=== PATIENT | female | born 1940 | race Hispanic/Latino ===

== ENCOUNTER 2017-08-28 09:33 | Emergency (ER) | payer OTHER ==
--- OUTSIDE RECORDS SUMMARY | 2017-08-28 09:51 | XMS REPORT ---
:1940 Author Organization eClinicalWorks Care Team Providers Name Role Phone Valentín [facility] Provider Role Unavailable Allergies No Known Allergies Problems Problem Type Condition Code Onset Dates Condition Status Problem Peripheral vascular disease I73.9 Active Problem Edema R60.9 Active Problem Insomnia G47.00 Active Problem Obesity E66.9 Active Problem Carotid artery occlusion I65.29 Active Problem Benign essential HTN I10 Active Problem At risk for falling Z91.81 Active Problem Carcinoma of right female breast, C50.911 Active unspecified estrogen receptor status, unspecified site of breast Problem Hyperlipidemia E78.5 Active Problem GERD (gastroesophageal reflux K21.9 Active disease) Problem Osteoporosis M81.0 Active Problem Claudication I73.9 Active Problem Diabetes type 2, uncontrolled E11.65 Active Problem Allergic rhinitis, seasonal J30.2 Active Problem Depression with anxiety F41.8 Active Problem Chronic kidney disease, stage 3 N18.3 Active Problem Chronic atrial fibrillation I48.2 Active Problem Iron deficiency anemia D50.9 Active Problem Breast cancer C50.919 Active Problem Bladder incontinence R32 Active Problem Gout M10.9 Active Problem Anticoagulated Z79.01 Active Problem Back pain M54.9 Active Medications Medication Code Code Instructions Start End Date Status Dosage System Date [facility] 39140428667 200 UNIT/ML Active 70 UNITS FlexTouch Subcutaneous DAILY Increase 2 untis after 3 day if BS are high Results No Known Results Summary Purpose eClinicalWorks Submission
--- OUTSIDE RECORDS SUMMARY | 2017-08-28 09:51 | XMS REPORT ---
:1940 Author Organization eClinicalWorks Care Team Providers Name Role Phone Valentín Noman Provider Role Unavailable Allergies No Known Allergies [...] Active Problem Back pain M54.9 Active Medications No Known Medications Results No Known Results Summary Purpose eClinicalWorks Submission
--- OUTSIDE RECORDS SUMMARY | 2017-08-28 09:51 | XMS REPORT ---
:1940 Author Organization eClinicalWorks Care Team Providers Name Role Phone Laura, [facility] Provider Role Unavailable Allergies, Adverse Reactions, Alerts Substance Reaction Event Type Levaquin Info Not Available Drug Allergy Problems Problem Type Condition Code Onset Dates [...] incontinence R32 Active Problem Gout M10.9 Active Assessment Medicare annual wellness visit, Z00.00 Active initial Problem Anticoagulated Z79.01 Active Problem Back pain M54.9 Active Medications Medication Code Code Instructions Start End Status Dosage System Date Date Citalopram [facility] 45265914051 20 MG Orally Active 1 tablet Hydrobromide Once a day Coumadin ND 60778990214 2 MG Orally Active 1 tablet Once a day Lipitor ND 85595659127 40 MG Active 1 TAB(S) ONCE A DAY ORALLY Meclizine HCl ND 88983070929 25 MG Orally Active 1 tablet Three times a day Ferrous Sulfate ND 91664525185 325 (65 Fe) MG May Active 1 tablet Orally Once a 2017 day Tresiba FlexTouch ND 91887137181 200 UNIT/ML Active not Subcutaneous defined Chlorthalidone ND 54002538031 25 MG Orally Active 1 tablet Once a day in the morning with food FreeStyle Lite [facility] NAMED [facility] 37643027065 0 Active CHECK Test BLOOD SUGAR TWICE DAILY Flonase Allergy [facility] NAMED [facility] 89269277001 50 MCG/ACT Active 1 spray in Relief Nasally Once a each day nostril Meclizine HCl [facility] NAMED [facility] 50440381853 25 Active CHEW AND SWALLOW 1 TABLET THREE TIMES DAILY Anastrozole [facility] NAMED [facility] 48190387130 1 MG Orally Active 1 tablet Once a day Protonix [facility] NAM[facility] 96826512294 40 MG Active 1 TAB(S) ONCE A DAY ORALLY Losartan [facility] NAM[facility] 57668228558 100 MG Orally Active 1 tablet Potassium Once a day Topamax [facility] NAM[facility] 28333540307 50 MG Orally Active 1 tablet Once a day Protonix [facility] NAM[facility] 08166018669 40 MG Orally Active 1 tablet Once a day Tresiba FlexTouch [facility]AM[facility] 45625492522 200 UNIT/ML Active 40 UNITS DAILY Results No Known Results Summary Purpose eClinicalWorks Submission
--- NOTE | 2017-08-28 10:09 | ER ---
Nurse's Notes [facility] Name: Sarah Garcia Age: 76 yrs Sex: Female : 1940 Arrival Date: 08/28/2017 Time: 09:36 Bed Waiting Private MD: Noman Laura Diagnosis: Presentation: 08/28 09:45 Presenting complaint: Patient states: Sent to ER by home health because nurse heard aj crackles in lungs. Patient denies cough or fever. Transition of care: patient was not received from another setting of care. Onset of symptoms was August 28, 2017. Risk Assessment: Do you want to hurt yourself or someone else? Patient reports no desire to harm self or others. Initial Sepsis Screen: Does the patient meet any 2 criteria? No. Patient's initial sepsis screen is negative. Does the patient have a suspected source of infection? No. Patient's initial sepsis screen is negative. Care prior to arrival: None. 09:45 Method Of Arrival: Wheelchair aj 09:45 Acuity: CHRISS 4 aj Triage Assessment: 09:49 General: Appears in no apparent distress. comfortable, Behavior is calm, cooperative, aj appropriate for age. Pain: Denies pain. Neuro: Level of Consciousness is awake, alert, obeys commands, Oriented to person, place, time, situation, Appropriate for age. Respiratory: Airway is patent Respiratory effort is even, unlabored, Respiratory pattern is regular, symmetrical. Derm: Skin is intact, is healthy with good turgor, Skin is pink, warm \T\ dry. normal. Historical: - Allergies: 09:49 QUINOLONES; aj - Home Meds: 09:49 aspirin 81 mg Oral chew 1 tab once daily [Active]; chlorthalidone 25 mg Oral tab 1 tab aj once daily [Active]; citalopram 20 mg tab 1 tab once daily [Active]; Coumadin 2 mg Oral tab 1 tab Sunday, Sunday, Sunday, , Sunday and then 1/2 tablet on Sunday and Sunday [Active]; ferrous sulfate 325 mg (65 mg iron) Oral TbEC twice a day [Active]; Lopressor 50 mg Oral tab once daily [Active]; gabapentin 300 mg Oral cap 1 cap 3 times per day [Active]; losartan 100 mg Oral tab 1 tab once daily [Active]; meclizine 25 mg Oral tab 1 tab 3 times per day [Active]; Novolin N Sub-Q [Active]; Protonix 40 mg Oral TbEC 1 tab once daily [Active]; simvastatin 40 mg Oral tab once daily [Active]; tramadol 50 mg Oral tab as needed [Active]; Tresiba FlexTouch U-200 200 unit/mL (3 mL) subcutaneous inpn 40 unit nightly [Active]; - PMHx: 09:49 Atrial Fib; Diabetes - IDDM; GERD; High Cholesterol; Hypertension; Myocardial aj infarction; - Immunization history:: Adult Immunizations up to date. - Social history:: Smoking status: Patient/guardian denies using tobacco. - Ebola Screening: : Patient negative for fever greater than or equal to 101.5 degrees Fahrenheit, and additional compatible Ebola Virus Disease symptoms Patient denies exposure to infectious person Patient denies travel to an Ebola-affected area in the 21 days before illness onset No symptoms or risks identified at this time. Assessment: 10:08 Reassessment: Patient's son stated that he would take her to urgent care. aj Vital Signs: 09:49 BP 133 / 47; Pulse 69; Resp 18; Temp 97.8; Pulse Ox 99% on R/A; Weight 83.01 kg; Height aj 5 ft. 2 in. (157.48 cm); 09:49 Body Mass Index 33.47 (83.01 kg, 157.48 cm) aj ED Course: 09:36 Patient arrived in ED. sb2 09:37 Noman Laura DO is Private Physician. sb2 09:48 Triage completed. aj 09:49 Arm band placed on left wrist. Patient placed in waiting room, Patient notified of wait aj time. 10:03 Cristóbal Waldron MD is Attending Physician. susie Administered Medications: No medications were administered Outcome: 10:09 Eloped from waiting room, before seeing physician Time discovered patient gone: August at 10:09 10:09 Patient left the ED. aj Signatures: Rita Pittman, RN RN Cristóbal Lau MD MD cha Billeau, Sheri sb2
[2017-08-28 10:13] VITALS: BP 133/47; TEMP 97.8; O2SAT 99
== END 2017-08-28 10:09 | disposition left against medical advice (07) ==
LOC: ER 09:33
DX: Z53.21 Procedure and treatment not carried out due to patient leaving prior to being seen by health care provider (principal)
CPT/HCPCS: 99281

== ENCOUNTER 2017-09-24 12:38 | Observation (INO) | payer OTHER ==
--- OUTSIDE RECORDS SUMMARY | 2017-09-24 12:40 | XMS REPORT ---
:1940 Author Organization eClinicalWorks Care Team Providers Name Role Phone Valentín Count Includes [facility] Provider Role Unavailable Allergies No Known Allergies [...] Start End Date Status Dosage System Date [facility] 45099479255 200 UNIT/ML Active 70 UNITS FlexTouch Subcutaneous DAILY Increase 2 untis after 3 day if BS are high Results No Known Results Summary Purpose eClinicalWorks Submission
--- OUTSIDE RECORDS SUMMARY | 2017-09-24 12:40 | XMS REPORT ---
:1940 Author Organization eClinicalWorks Care Team Providers Name Role Phone Noman Laura Provider Role Unavailable Allergies No Known Allergies [...]
--- OUTSIDE RECORDS SUMMARY | 2017-09-24 12:40 | XMS REPORT ---
:1940 Author Organization eClinicalWorks Care Team Providers Name Role Phone Laura, [facility] Provider Role Unavailable Allergies, Adverse Reactions, Alerts [...] End Status Dosage System Date Date Citalopram [facility] 61215994439 20 MG Orally Active 1 tablet Hydrobromide Once a day Coumadin ND 82775117582 2 MG Orally Active 1 tablet Once a day Lipitor ND 70512263235 40 MG Active 1 TAB(S) ONCE A DAY ORALLY Meclizine HCl ND 47196062080 25 MG Orally Active 1 tablet Three times a day Ferrous Sulfate ND 56103374392 325 (65 Fe) MG May Active 1 tablet Orally Once a 2017 day Tresiba FlexTouch ND 45377730400 200 UNIT/ML Active not Subcutaneous defined Chlorthalidone ND 61802749442 25 MG Orally Active 1 tablet Once a day in the morning with food FreeStyle Lite [facility] 98164879808 0 Active CHECK Test BLOOD SUGAR TWICE DAILY Flonase Allergy [facility] 58068852468 50 MCG/ACT Active 1 spray in Relief Nasally Once a each day nostril Meclizine HCl [facility] 88918410222 25 Active CHEW AND SWALLOW 1 TABLET THREE TIMES DAILY Anastrozole [facility] 84635307817 1 MG Orally Active 1 tablet Once a day Protonix [facility] 77483248988 40 MG Active 1 TAB(S) ONCE A DAY ORALLY Losartan [facility] 96629768794 100 MG Orally Active 1 tablet Potassium Once a day Topamax [facility] 36600857332 50 MG Orally Active 1 tablet Once a day Protonix [facility] 67069670072 40 MG Orally Active 1 tablet Once a day Tresiba FlexTouch [facility] 97381569831 200 UNIT/ML Active 40 UNITS DAILY Results No Known Results Summary Purpose eClinicalWorks Submission
--- OUTSIDE RECORDS SUMMARY | 2017-09-24 12:40 | XMS REPORT ---
:1940 Author Organization eClinicalWorks Care Team Providers Name Role Phone Noman Luara Provider Role Unavailable Allergies No Known Allergies Problems Problem Type Condition Code Onset Dates Condition Status Assessment Chronic kidney disease, stage 3 N18.3 Active Assessment Depression with anxiety F41.8 Active Assessment Anticoagulated Z79.01 Active Assessment Carotid artery occlusion I65.29 Active Assessment Chronic atrial fibrillation I48.2 Active Assessment GERD (gastroesophageal reflux K21.9 Active disease) Assessment Carcinoma of right female breast, C50.911 Active unspecified estrogen receptor status, unspecified site of breast Assessment Hyperlipidemia E78.5 Active Assessment Benign essential HTN I10 Active Problem Gout M10.9 Active Assessment Diabetes type 2, uncontrolled E11.65 Active Problem Back pain M54.9 Active Problem Peripheral vascular disease I73.9 Active Problem Edema R60.9 Active Problem Insomnia G47.00 Active Problem Obesity E66.9 Active Problem Benign essential HTN I10 Active Problem Carotid artery occlusion I65.29 Active Problem At risk for falling Z91.81 Active Problem Hyperlipidemia E78.5 Active Problem Carcinoma of right female breast, C50.911 Active unspecified estrogen receptor status, unspecified site of breast Problem GERD (gastroesophageal reflux K21.9 Active disease) Problem Osteoporosis M81.0 Active Problem Claudication I73.9 Active Problem Diabetes type 2, uncontrolled E11.65 Active Assessment At risk for falling Z91.81 Active Problem Allergic rhinitis, seasonal J30.2 Active Assessment Osteoporosis M81.0 Active Problem Depression with anxiety F41.8 Active Assessment Peripheral vascular disease I73.9 Active Problem Chronic kidney disease, stage 3 N18.3 Active Assessment Leg weakness, bilateral R29.898 Active Problem Chronic atrial fibrillation I48.2 Active Problem Iron deficiency anemia D50.9 Active Problem Breast cancer C50.919 Active Problem Bladder incontinence R32 Active Problem Anticoagulated Z79.01 Active Medications Medication Code Code Instructions Start End Status Dosage System Date Date FreeStyle Lite [facility] 49109579049 0 Active CHECK Test BLOOD SUGAR TWICE DAILY Lipitor [facility] 88848293283 40 MG Active 1 TAB(S) ONCE A DAY ORALLY Losartan [facility] 70587998037 100 MG Orally Active 1 tablet Potassium Once a day Meclizine HCl [facility] 87095256363 25 Active CHEW AND SWALLOW 1 TABLET THREE TIMES DAILY Flonase Allergy [facility] 06423077763 50 MCG/ACT Active 1 spray in Relief Nasally Once a each day nostril Ferrous Sulfate [facility] 76866506473 325 (65 Fe) MG Active 1 tablet Orally Once a day Tresiba FlexTouch [facility] 46045328450 200 UNIT/ML Active 70 UNITS Subcutaneous DAILY Increase 2 untis after 3 day if BS are high Citalopram [facility] 34977761671 20 MG Orally Active 1 tablet Hydrobromide Once a day Chlorthalidone [facility] 23435406138 25 MG Orally Active 1 tablet Once a day in the morning with food Tresiba FlexTouch [facility] 97921798082 200 UNIT/ML Active not Subcutaneous defined Anastrozole [facility] 32635474729 1 MG Orally Active 1 tablet Once a day Topamax [facility] 53084474094 50 MG Orally Active 1 tablet Once a day Protonix [facility] 46028053318 40 MG Active 1 TAB(S) ONCE A DAY ORALLY Lipitor [facility] 69257971183 40 MG Orally Active 1 tablet Once a day Coumadin [facility] 81149882437 2 MG Orally Active 1 tablet Once a day BD Pen Needle [facility] 72047766606 0 Active USE DAILY Short U/F Citalopram [facility] 26876862497 20 Active TAKE 1 Hydrobromide TABLET BY MOUTH EVERY DAY Protonix [facility] 21563605545 40 MG Orally Active 1 tablet Once a day Results No Known Results Summary Purpose eClinicalWorks Submission
[2017-09-24 14:24] LABS: Absolute Lymphocytes (CBC) 1.9 K/uL (0.7-4.9); Absolute Monocytes 0.5 K/uL (0.1-1.3); Absolute Neutrophil 5.4 K/uL (1.8-8.0); Basophils % 0.4 % (0-1.3); Hematocrit 30.9 % (36.0-45.0); Lymphocytes % 23.2 % (15.3-44.8); MCH 30.5 pg (27.0-35.0); MCV 95.1 fL (80-100); MPV 9.5 fL (7.6-11.3); Monocytes % 6.2 % (3.3-12.3); RBC Red Blood Cell Count 3.25 M/uL (3.86-4.86)
[2017-09-24 14:46] LABS: Urine Bacteria LOADED /HPF (<20); Urine Culture Reflex Order REFLEXED; Urine Mucus 2+ /HPF (NONE SEEN)
[2017-09-24 14:46] LABS: Urine Blood 1+ (NEG); Urine Glucose 2+ (NEG); Urine Protein 1+ (NEG); Urine pH 5.5 (5.0-7.0)
[2017-09-24] MEDS ORDERED: NA CHLORIDE 0.9% 500 ML ONE (15:01)
[2017-09-24] MEDS ORDERED: INSULIN -REGULAR HUMAN 50 UNIT/0.5 ML ML ONE ×2 (15:01→20:50)
[2017-09-24 15:23] LABS: Protime INR 2.38
[2017-09-24] MEDS ORDERED: CEFTRIAXONE/SWI 1gm 1 GM/10 ML SYR ONE (15:31)
--- NOTE | 2017-09-24 17:01 | EKG ---
Test Date: 2017-09-24 Test Time: 13:28:16 Television Journalist: JOSUE MEASUREMENT RESULTS: Intervals: Rate: 75 [place]: 172 QRSD: 70 QT: 388 QTc: 433 [place]: P: 28 [place]: 172 QRS: 3 T: 51 INTERPRETIVE STATEMENTS: Normal sinus rhythm Minimal voltage criteria for LVH, may be normal variant Inferior infarct, age undetermined Cannot rule out Anterior infarct, age undetermined Abnormal ECG Compared to ECG 04/15/2016 06:53:40 Left ventricular hypertrophy now present Myocardial infarct finding still present Electronically Signed On 09-24-17 17:00:39 CDT by Jefe Ewing
--- NOTE | 2017-09-24 17:26 | ER ---
Nurse's Notes [facility] Name: Sarah Garcia Age: 76 yrs Sex: Female : 1940 Arrival Date: 09/24/2017 Time: 12:41 Bed 15 Private MD: Noman Laura Diagnosis: Unspecified kidney failure;Type 1 diabetes mellitus;Hyperkalemia;Cystitis Presentation: 09/24 12:53 Presenting complaint: Patient states: BLOOD SURGAR YESTERDAY WAS 240, TODAY IT WAS 490 ch AT HOME. Transition of care: patient was not received from another setting of care. Onset of symptoms was September 24, 2017 at 08:00. Risk Assessment: Do you want to hurt yourself or someone else? Patient reports no desire to harm self or others. Initial Sepsis Screen: Does the patient meet any 2 criteria? No. Patient's initial sepsis screen is negative. Does the patient have a suspected source of infection? No. Patient's initial sepsis screen is negative. Care prior to arrival: None. 12:53 Method Of Arrival: Wheelchair 12:53 Acuity: CHRISS 4 ch 13:30 Acuity: CHRISS 3 hb Triage Assessment: 12:57 General: Appears in no apparent distress. comfortable, Behavior is calm, cooperative, ch appropriate for age. Pain: Denies pain. Historical: - Allergies: 12:57 QUINOLONES; ch - Home Meds: 12:57 anastrozole 1 mg oral tab 1 tab once daily [Active]; aspirin 81 mg Oral chew 1 tab once ch daily [Active]; atorvastatin 40 mg oral tab 1 tab once daily [Active]; Lyrica Oral 1 cap [Active]; chlorthalidone 25 mg Oral tab 1 tab once daily [Active]; citalopram 20 mg tab 1 tab once daily [Active]; Coumadin 2.5 mg Oral tab 1 tab once daily [Active]; ferrous sulfate 325 mg (65 mg iron) Oral tab [Active]; losartan 100 mg oral tab 1 tab once daily [Active]; meclizine 25 mg Oral chew 1 tab once daily [Active]; miconazole nitrate 1,200-2 mg-% Vaginal kit 2 times per day [Active]; pantoprazole 40 mg oral TbEC 1 tab once daily [Active]; Childs 5-325 mg Oral tab 1 tab NEEDED for Pain [Active]; tramadol 50 mg Oral tab 1 tab daily [Active]; TRESIBA FLEXTOUCH U-100, 40 UINTIS [Active]; Vitamin D Oral [Active]; BREAST CANCER PILL AND RADIATION [Active]; - PMHx: 12:57 Atrial Fib; Diabetes - IDDM; GERD; High Cholesterol; Hypertension; Myocardial ch infarction; - Immunization history:: Adult Immunizations up to date. - Social history:: Smoking status: Patient/guardian denies using tobacco, Patient/guardian denies using alcohol, street drugs. - Ebola Screening: : Patient negative for fever greater than or equal to 101.5 degrees Fahrenheit, and additional compatible Ebola Virus Disease symptoms Patient denies exposure to infectious person Patient denies travel to an Ebola-affected area in the 21 days before illness onset No symptoms or risks identified at this time. Screenin:45 Abuse screen: Denies threats or abuse. Denies injuries from another. Nutritional hb screening: No deficits noted. Tuberculosis screening: No symptoms or risk factors identified. Fall Risk Total Lutz Fall Scale indicates Low Risk Score (25-44 pts). Fall prevention measures have been instituted. Side Rails Up X 2 Frequent Obs/Assesments occuring Family Present and informed to notify staff if they need to leave bedside As available Patient and Family Educated on Fall Prevention Program and strategies. Assessment: 13:30 General: Appears in no apparent distress. Behavior is calm, cooperative. Pain: Denies hb pain. Neuro: Level of Consciousness is awake, alert, obeys commands, Oriented to person, place, time, situation. Cardiovascular: Capillary refill < 3 seconds Patient's skin is warm and dry. Respiratory: Airway is patent Trachea midline Respiratory effort is even, unlabored, Respiratory pattern is regular, symmetrical, Breath sounds are clear bilaterally. GI: No signs and/or symptoms were reported involving the gastrointestinal system. : No signs and/or symptoms were reported regarding the genitourinary system. EENT: No signs and/or symptoms were reported regarding the EENT system. Derm: No signs and/or symptoms reported regarding the dermatologic system. Skin is intact, is healthy with good turgor, Skin is pink, warm \T\ dry. Musculoskeletal: No signs and/or symptoms reported regarding the musculoskeletal system. 14:00 Reassessment: patient's daughter named Ekaterina left her mobile number [phone] to cc3 update her with anything with regards to her mother for she will leave for a while now and will be back later.. 14:30 Reassessment: Patient appears in no apparent distress at this time. No changes from previously documented assessment. Patient and/or family updated on plan of care and expected duration. Pain level reassessed. Patient is alert, oriented x 3, equal unlabored respirations, skin warm/dry/pink. 15:30 Reassessment: Patient appears in no apparent distress at this time. No changes from previously documented assessment. Patient and/or family updated on plan of care and expected duration. Pain level reassessed. Patient is alert, oriented x 3, equal unlabored respirations, skin warm/dry/pink. 16:00 Reassessment: Patient appears in no apparent distress at this time. Patient and/or hb family updated on plan of care and expected duration. Pain level reassessed. Patient is alert, oriented x 3, equal unlabored respirations, skin warm/dry/pink. 17:48 Reassessment: Patient appears in no apparent distress at this time. Called the patient's daughter named Ekaterina and informed her that the patient is ordered for discharge home and she said she will come to fetch the patient. 18:14 Reassessment: Dr. Hung notified of critical lab value potassium 6.1. Repeat BMP ss ordered. 18:33 Reassessment: Repeat BMP sent. NAD. VSS. Son at bedside. 19:17 Reassessment: Patient appears in no apparent distress at this time. Patient and/or aa1 family updated on plan of care and expected duration. Pain level reassessed. Patient is alert, oriented x 3, equal unlabored respirations, skin warm/dry/pink. Awaiting repeat lab results. 19:30 Reassessment: Nettie in outside lab called stating that repeat chemistry sent at 1820 aa1 was hemolyzed and new specimen needs to be collected. Will redraw sample at this time. 20:30 Reassessment: Patient appears in no apparent distress at this time. Patient and/or aa1 family updated on plan of care and expected duration. Pain level reassessed. Patient is alert, oriented x 3, equal unlabored respirations, skin warm/dry/pink. Repeat chemistry resulted at this time. Awaiting provider review. 21:13 Reassessment: Patient appears in no apparent distress at this time. Patient and/or aa1 family updated on plan of care and expected duration. Pain level reassessed. Patient is alert, oriented x 3, equal unlabored respirations, skin warm/dry/pink. Awaiting assessment from Dr. Waldron for re-evaluation. 22:00 Reassessment: Patient appears in no apparent distress at this time. Patient and/or aa1 family updated on plan of care and expected duration. Pain level reassessed. Patient is alert, oriented x 3, equal unlabored respirations, skin warm/dry/pink. Pt vomited, notified and order for Zofran received. 22:36 Reassessment: Patient appears in no apparent distress at this time. Patient and/or aa1 family updated on plan of care and expected duration. Pain level reassessed. Patient is alert, oriented x 3, equal unlabored respirations, skin warm/dry/pink. Pt resting comfortably. Bed assignment received; awaiting admission orders from Dr. Fowler. 23:10 Reassessment: Patient appears in no apparent distress at this time. Patient and/or aa1 family updated on plan of care and expected duration. Pain level reassessed. Patient is alert, oriented x 3, equal unlabored respirations, skin warm/dry/pink. Pt had large bowel movement. Cleaned of incontinence and brief changed. 23:12 Reassessment: Dr. Fowler at bedside for pt assessment for admission. aa1 23:46 Reassessment: Patient appears in no apparent distress at this time. Patient is alert, aa1 oriented x 3, equal unlabored respirations, skin warm/dry/pink. Report given to analisa on 4th floor. Vital Signs: 12:57 BP 155 / 90; Pulse 70; Resp 18; Temp 99; Pulse Ox 93% on R/A; Weight 84.37 kg; Height 5 ch ft. 3 in. (160.02 cm); Pain 0/10; 13:57 BP 152 / 41; Pulse 71; Resp 18; Pulse Ox 96% on R/A; dh3 14:57 BP 162 / 49; Pulse 70; Resp 17; Pulse Ox 96% on R/A; dh3 15:27 BP 144 / 49; Pulse 78; Resp 16; Pulse Ox 99% on R/A; dh3 19:00 BP 191 / 71; Pulse 70; Resp 18; Pulse Ox 97% on R/A; Pain 0/10; aa1 20:00 BP 198 / 66; Pulse 70; Resp 16; Pulse Ox 95% on R/A; Pain 0/10; aa1 21:13 BP 185 / 68; Pulse 70; Resp 18; Pulse Ox 100% ; Pain 0/10; aa1 22:00 BP 125 / 85; Pulse 66; Resp 18; Pulse Ox 97% on R/A; Pain 0/10; aa1 22:24 BP 102 / 60; Pulse 76; Resp 18; Pulse Ox 97% on R/A; Pain 0/10; aa1 23:10 BP 111 / 40; Pulse 72; Resp 18; Pulse Ox 95% on R/A; Pain 0/10; aa1 23:36 BP 130 / 63; Pulse 72; Resp 16; Temp 98.6; Pulse Ox 96% on R/A; Pain 0/10; aa1 12:57 Body Mass Index 32.95 (84.37 kg, 160.02 cm) ED Course: 12:41 Patient arrived in ED. sb2 12:41 Noman Laura DO is Private Physician. sb2 12:54 Triage completed. ch 12:57 Arm band placed on left wrist. Patient placed in waiting room. ch 13:00 Cristóbal Omalley PA is PHCP. cp 13:00 Pankaj Hung MD is Attending Physician. cp 13:15 Patient has correct armband on for positive identification. Bed in low position. Call hb light in reach. Side rails up X 1. 13:53 EKG done, by mechanical technician. reviewed by Cristóbal ELIZABETH. at1 13:58 Martha Villanueva RN is Primary Nurse. hb 13:58 Inserted saline lock: 22 gauge in left forearm, using aseptic technique. Blood dh3 collected. 13:58 Initial lab(s) drawn, by ky, sent to lab. dh3 17:52 No provider procedures requiring assistance completed. IV discontinued, intact, hb bleeding controlled, No redness/swelling at site. Pressure dressing applied. 18:21 Primary Nurse role handed off by Martha Villanueva RN 19:03 Attending Physician role handed off by Pankaj Hung MD [facility] 19:03 Cristóbal Waldron MD is Attending Physician. susie 19:14 Marsha Rodriguez RN is Primary Nurse. aa1 19:33 CT Stone Protocol In Process Unspecified. EDMS 20:32 Oziel Jauregui MD is Referral Physician. susie 21:00 Inserted saline lock: 24 gauge in left forearm, using aseptic technique. aa1 21:47 Mejia Cameron MD is Hospitalizing Provider. susie 22:22 Cleaned of incontinence. aa1 23:10 Cleaned of incontinence. aa1 23:14 X-ray completed. Portable x-ray completed in exam room. Patient tolerated procedure kw well. Administered Medications: Discontinued: NS 0.9% 1000 ml IV at 100 ml/hr continuous 14:44 Drug: NS 0.9% 250 ml Route: IV; Rate: bolus; Site: left wrist; hb 15:30 Follow up: IV Status: Completed infusion hb 15:00 Drug: Insulin Regular Human 10 units {Co-Signature: sg (Tutu Dozier RN).} Route: IVP; hb Site: left wrist; 15:35 Follow up: Response: No adverse reaction; Blood sugar is lowered hb 15:30 Drug: Rocephin 1 grams Route: IV; Rate: calculated rate; Site: left wrist; hb 17:12 Follow up: Response: No adverse reaction hb 15:46 Drug: NS 0.9% 1000 ml Route: IV; Rate: 100 ml/hr; Site: left wrist; hb 20:55 Drug: Kayexalate 30 grams Route: PO; aa1 21:49 Follow up: Response: No adverse reaction aa1 20:55 Drug: Albuterol 5 mg Route: Inhalation; aa1 21:05 Drug: Insulin Regular Human 10 units {Co-Signature: ak1 (Taya Chopra RN).} Route: IVP; aa1 Site: left forearm; 22:05 Follow up: Response: No adverse reaction; Blood sugar is lowered aa1 22:00 Drug: NS 0.9% 1000 ml Route: IV; Rate: 75 ml/hr; Site: left forearm; aa1 23:40 Follow up: IV Status: Infusion continued upon admission aa1 22:00 Drug: Zofran 4 mg Route: IVP; Site: left forearm; aa1 23:00 Follow up: Response: No adverse reaction; Nausea is decreased aa1 Point of Care Testing: Blood Glucose: 12:59 Blood Glucose: 419 mg/dL; ch 22:06 Blood Glucose: 280 mg/dL; aa1 Ranges: Outcome: 17:26 Discharge ordered by . cp 17:52 Discharged to home via wheelchair. hb 17:52 Condition: stable 17:52 Discharge instructions given to patient, Instructed on discharge instructions, follow up and referral plans. medication usage, Demonstrated understanding of instructions, follow-up care, medications, Prescriptions given X 1. 17:53 Patient left the ED. hb 21:49 Decision to Hospitalize by Provider. susie 23:51 Patient left the ED. aa1 Signatures: Dispatcher [employer] EDMS Mabel Hurtado, RN RN Tutu Dozier, RN RN sg Marsha Rodriguez RN RN aa1 Cristóbal Waldron MD MD cha Smirch, Shelby, RN RN Nata Hernandez Amanda, unisaw operator EKG Tat1 Cristóbal Omalley PA PA cp Martha Villanueva, RN RN Martha Childress 3 Minoo Barajas 2 Brisa Jaramillo 3 Tutu Dozier RN Taya Chopra RN ak1
--- NOTE | 2017-09-24 17:26 | EDPHYS ---
Physician Documentation [facility] Name: Sarah Garcia Age: 76 yrs Sex: Female : 1940 Arrival Date: 09/24/2017 Time: 12:41 Bed 15 Private MD: [facility] ED Physician Cristóbal Waldron HPI: 09/24 13:05 This 76 yrs old Female presents to ER via Wheelchair with complaints of High cp Blood Sugar. 13:05 The patient or guardian reports hyperglycemia. Onset: The symptoms/episode cp began/occurred yesterday. 13:05 Associated signs and symptoms: Pertinent negatives: chest pain, abdominal pain. cp 13:05 Current symptoms: In the emergency department the patient's symptoms are unchanged from cp the initial presentation. Historical: - Allergies: 12:57 QUINOLONES; ch - Home Meds: 12:57 anastrozole 1 mg oral tab 1 tab once daily [Active]; aspirin 81 mg Oral chew 1 tab once ch daily [Active]; atorvastatin 40 mg oral tab 1 tab once daily [Active]; Lyrica Oral 1 cap [Active]; chlorthalidone 25 mg Oral tab 1 tab once daily [Active]; citalopram 20 mg tab 1 tab once daily [Active]; Coumadin 2.5 mg Oral tab 1 tab once daily [Active]; ferrous sulfate 325 mg (65 mg iron) Oral tab [Active]; losartan 100 mg oral tab 1 tab once daily [Active]; meclizine 25 mg Oral chew 1 tab once daily [Active]; miconazole nitrate 1,200-2 mg-% Vaginal kit 2 times per day [Active]; pantoprazole 40 mg oral TbEC 1 tab once daily [Active]; [place] 5-325 mg Oral tab 1 tab NEEDED for Pain [Active]; tramadol 50 mg Oral tab 1 tab daily [Active]; TRESIBA FLEXTOUCH U-100, 40 UINTIS [Active]; Vitamin D Oral [Active]; BREAST CANCER PILL AND RADIATION [Active]; - PMHx: 12:57 Atrial Fib; Diabetes - IDDM; GERD; High Cholesterol; Hypertension; Myocardial ch infarction; - Immunization history:: Adult Immunizations up to date. - Social history:: Smoking status: Patient/guardian denies using tobacco, Patient/guardian denies using alcohol, street drugs. - Ebola Screening: : Patient negative for fever greater than or equal to 101.5 degrees Fahrenheit, and additional compatible Ebola Virus Disease symptoms Patient denies exposure to infectious person Patient denies travel to an Ebola-affected area in the 21 days before illness onset No symptoms or risks identified at this time. ROS: 13:10 Constitutional: Negative for body aches, chills, fever, poor PO intake. cp 13:10 Eyes: Negative for injury, pain, redness, and discharge. cp 13:10 Cardiovascular: Negative for chest pain, edema, palpitations. 13:10 Respiratory: Negative for cough, shortness of breath, wheezing. 13:10 Abdomen/GI: Negative for abdominal pain, nausea, vomiting, and diarrhea, constipation. 13:10 Skin: Negative for cellulitis, rash. 13:10 Neuro: Negative for altered mental status, headache, speech changes, syncope, near syncope, weakness. 13:10 All other systems are negative. Exam: 13:15 Constitutional: The patient appears in no acute distress, alert, awake, cp non-diaphoretic, non-toxic, well developed, well nourished, obese. 13:15 Head/Face: Normocephalic, atraumatic. cp 13:15 Eyes: Periorbital structures: appear normal, Conjunctiva: normal, no exudate, no injection, Sclera: no appreciated abnormality, Lids and lashes: appear normal, bilaterally. 13:15 ENT: External ear(s): are unremarkable, Nose: is normal, Mouth: Lips: moist, Oral mucosa: moist, Posterior pharynx: is normal, airway is patent, no erythema, no exudate. 13:15 Chest/axilla: Inspection: normal, Palpation: is normal, no crepitus, no tenderness. 13:15 Cardiovascular: Rate: normal, Rhythm: regular, Edema: is not appreciated, JVD: is not appreciated. 13:15 Respiratory: the patient does not display signs of respiratory distress, Respirations: normal, no use of accessory muscles, no retractions, no splinting, no tachypnea, labored breathing, is not present, Breath sounds: are clear throughout, no decreased breath sounds, no stridor, no wheezing. 13:15 Abdomen/GI: Inspection: obese Palpation: abdomen is soft and non-tender, in all quadrants, rebound tenderness, is not appreciated, voluntary guarding, is not appreciated, involuntary guarding, is not appreciated. 13:15 Back: pain, is absent, ROM is normal. 13:15 Skin: cellulitis, is not appreciated, no rash present. 13:15 Neuro: Orientation: to person, place \T\ time. Mentation: lucid, able to follow commands, Cerebellar function: is grossly normal, Motor: moves all fours, strength is normal, Sensation: no obvious gross deficits. 13:35 ECG was reviewed by the Attending Physician. cp Vital Signs: 12:57 BP 155 / 90; Pulse 70; Resp 18; Temp 99; Pulse Ox 93% on R/A; Weight 84.37 kg; Height 5 ch ft. 3 in. (160.02 cm); Pain 0/10; 13:57 BP 152 / 41; Pulse 71; Resp 18; Pulse Ox 96% on R/A; dh3 14:57 BP 162 / 49; Pulse 70; Resp 17; Pulse Ox 96% on R/A; dh3 15:27 BP 144 / 49; Pulse 78; Resp 16; Pulse Ox 99% on R/A; dh3 19:00 BP 191 / 71; Pulse 70; Resp 18; Pulse Ox 97% on R/A; Pain 0/10; aa1 20:00 BP 198 / 66; Pulse 70; Resp 16; Pulse Ox 95% on R/A; Pain 0/10; aa1 21:13 BP 185 / 68; Pulse 70; Resp 18; Pulse Ox 100% ; Pain 0/10; aa1 22:00 BP 125 / 85; Pulse 66; Resp 18; Pulse Ox 97% on R/A; Pain 0/10; aa1 22:24 BP 102 / 60; Pulse 76; Resp 18; Pulse Ox 97% on R/A; Pain 0/10; aa1 23:10 BP 111 / 40; Pulse 72; Resp 18; Pulse Ox 95% on R/A; Pain 0/10; aa1 23:36 BP 130 / 63; Pulse 72; Resp 16; Temp 98.6; Pulse Ox 96% on R/A; Pain 0/10; aa1 12:57 Body Mass Index 32.95 (84.37 kg, 160.02 cm) MDM: 13:02 Patient medically screened. cp 14:00 Differential diagnosis: diabetes insipidus, DKA, hyperglycemia. cp 21:45 Data reviewed: vital signs, nurses notes, lab test result(s), EKG, radiologic studies, susie CT scan, plain films. 09/24 13:01 Order name: Urine Microscopic Only; Complete Time: 15:22 cp 09/24 15:22 Interpretation: Normal except: UWBC 20-50; URBC 5-10; UBACT LOADED; SQEPI 5-10. 09/24 13:23 Order name: Basic Metabolic Panel; Complete Time: 19:04 09/24 13:23 Order name: CBC with Diff; Complete Time: 14:31 cp 09/24 16:11 Interpretation: Normal except: RBC 3.25; HGB 9.9; HCT 30.9. 09/24 13:23 Order name: LFT's; Complete Time: 19:04 cp 09/24 13:23 Order name: Magnesium; Complete Time: 19:04 cp 09/24 13:23 Order name: PT-INR; Complete Time: 16:11 09/24 16:11 Interpretation: Abnormal: PT 28.3. 09/24 13:23 Order name: Ptt, Activated; Complete Time: 16:11 cp 09/24 13:23 Order name: Troponin (emerg Dept Use Only); Complete Time: 15:22 cp 09/24 17:21 Interpretation: TROPED < 0.02; Reviewed. 09/24 13:23 Order name: Ketone, Serum; Complete Time: 19:04 cp 09/24 13:43 Order name: Urine Dipstick--Ancillary (enter results); Complete Time: 15:22 bd 09/24 15:23 Interpretation: Normal except: UGLUC 2+; UBLD 1+; UPROT 1+; UESTR TRACE. 09/24 14:47 Order name: Urine Culture EDMS 09/24 15:32 Order name: Glucose, Ancillary Testing; Complete Time: 16:11 EDMS 09/24 16:11 Interpretation: Abnormal: GLUC,ANCIL 305. cp 09/24 17:10 Order name: Glucose, Ancillary Testing; Complete Time: 17:17 EDMS 09/24 17:17 Interpretation: Abnormal: GLUC,ANCIL 223. 09/24 13:01 Order name: Accucheck Blood Glucose; Complete Time: 13:04 cp 09/24 13:01 Order name: Urine Dipstick-Ancillary (obtain specimen); Complete Time: 13:36 cp 09/24 13:23 Order name: EKG; Complete Time: 13:23 cp 09/24 19:05 Order name: Chem 7; Complete Time: 20:38 susie 09/24 19:15 Order name: CT Stone Protocol; Complete Time: 20:29 susie 09/24 21:46 Order name: Chest Single View XRAY [facility] 09/24 21:55 Order name: CONS Physician Consult EDMS 09/24 13:23 Order name: Cardiac monitoring; Complete Time: 13:58 cp 09/24 13:23 Order name: EKG - Nurse/Tech; Complete Time: 15:45 cp 09/24 13:23 Order name: IV Saline Lock; Complete Time: 13:59 cp 09/24 13:23 Order name: Labs collected and sent; Complete Time: 13:59 cp 09/24 13:23 Order name: O2 Per Protocol; Complete Time: 13:59 cp 09/24 13:23 Order name: O2 Sat Monitoring; Complete Time: 13:59 cp 09/24 16:43 Order name: Accucheck Blood Glucose; Complete Time: 17:12 cp EC:35 Rate is 75 beats/min. Rhythm is regular. NH interval is normal. QRS interval is normal. cp QT interval is normal. Interpreted by me. Reviewed by me. Administered Medications: Discontinued: NS 0.9% 1000 ml IV at 100 ml/hr continuous 14:44 Drug: NS 0.9% 250 ml Route: IV; Rate: bolus; Site: left wrist; hb 15:30 Follow up: IV Status: Completed infusion hb 15:00 Drug: Insulin Regular Human 10 units {Co-Signature: sg (Tutu Dozier RN).} Route: IVP; hb Site: left wrist; 15:35 Follow up: Response: No adverse reaction; Blood sugar is lowered hb 15:30 Drug: Rocephin 1 grams Route: IV; Rate: calculated rate; Site: left wrist; hb 17:12 Follow up: Response: No adverse reaction hb 15:46 Drug: NS 0.9% 1000 ml Route: IV; Rate: 100 ml/hr; Site: left wrist; hb 20:55 Drug: Kayexalate 30 grams Route: PO; aa1 21:49 Follow up: Response: No adverse reaction aa1 20:55 Drug: Albuterol 5 mg Route: Inhalation; aa1 21:05 Drug: Insulin Regular Human 10 units {Co-Signature: ak1 (Taya Chopra RN).} Route: IVP; [facility] Site: left forearm; 22:05 Follow up: Response: No adverse reaction; Blood sugar is lowered aa1 22:00 Drug: NS 0.9% 1000 ml Route: IV; Rate: 75 ml/hr; Site: left forearm; aa1 23:40 Follow up: IV Status: Infusion continued upon admission aa1 22:00 Drug: Zofran 4 mg Route: IVP; Site: left forearm; aa1 23:00 Follow up: Response: No adverse reaction; Nausea is decreased aa Point of Care Testing: Blood Glucose: 12:59 Blood Glucose: 419 mg/dL; 22:06 Blood Glucose: 280 mg/dL; aa1 Ranges: Critical Glucose Levels:Adult <50 mg/dl or >400 mg/dl <40 mg/dl or >180 mg/dl Disposition: 21:45 Co-signature as Attending Physician, Cristóbal Waldron MD I agree with the assessment and [facility] plan of care. Disposition: 09/24/17 21:49 Hospitalization ordered by Mejia Cameron for Observation. Preliminary diagnosis are Unspecified kidney failure, Type 1 diabetes mellitus, Hyperkalemia, Cystitis. - Bed requested for Telemetry/MedSurg (observation). - Status is Observation. aa1 - Condition is Fair. - Problem is new. - Symptoms have improved. UTI on Admission? Yes Signatures: Dispatcher [employer] EDMS Mabel Hurtado RN RN Marsha Rodriguez RN RN aa1 Cristóbal Waldron MD MD cha Page, Corey, PA PA cp Garcia, Cindy, RN RN Martha Villanueva RN RN hb Tutu Dozier RN sg Taya Chopra RN ak1 Corrections: (The following items were deleted from the chart) 17:53 17:26 09/24/2017 17:26 Discharged to Home. Impression: Urinary tract infection, site hb not specified; Diabetes mellitus due to underlying condition with hyperglycemia. Condition is Stable. Forms are Medication Reconciliation Form, Thank You Letter, Antibiotic Education, Prescription Opioid Use. Follow up: Private Physician; When: 1 - 2 days; Reason: Recheck today's complaints. Problem is new. Symptoms have improved. cp 19:33 18:21 BASIC METABOLIC PANEL+C.LAB.BRZ ordered. EDMS EDMS 20:31 17:53 09/24/2017 17:26 Discharged to Home. Impression: Urinary tract infection, site susie not specified; Diabetes mellitus due to underlying condition with hyperglycemia. Condition is Stable. Discharge Instructions: Urinary Tract Infection, Adult, Blood Glucose Monitoring, Adult, Diabetes Mellitus and Food. Prescriptions for Augmentin 875-125 mg Oral Tablet - take 1 tablet by ORAL route every 12 hours for 10 days; 20 tablet. and Forms are Medication Reconciliation Form, Thank You Letter, Antibiotic Education, Prescription Opioid Use. Follow up: Private Physician; When: 1 - 2 days; Reason: Recheck today's complaints. Problem is new. Symptoms have improved. hb 20:32 20:31 09/24/2017 17:26 Discharged to Home. Impression: Urinary tract infection, site susie not specified; Diabetes mellitus due to underlying condition with hyperglycemia; Unspecified kidney failure; Hyperkalemia. Condition is Stable. Discharge Instructions: Urinary Tract Infection, Adult, Blood Glucose Monitoring, Adult, Diabetes Mellitus and Food. Prescriptions for Augmentin 875-125 mg Oral Tablet - take 1 tablet by ORAL route every 12 hours for 10 days; 20 tablet. and Forms are Medication Reconciliation Form, Thank You Letter, Antibiotic Education, Prescription Opioid Use. Follow up: Private Physician; When: 1 - 2 days; Reason: Recheck today's complaints. Problem is new. Symptoms have improved. susie 21:11 20:32 09/24/2017 17:26 Discharged to Home. Impression: Urinary tract infection, site aa1 not specified; Diabetes mellitus due to underlying condition with hyperglycemia; Unspecified kidney failure; Hyperkalemia. Condition is Stable. Discharge Instructions: Urinary Tract Infection, Adult, Blood Glucose Monitoring, Adult, Diabetes Mellitus and Food. Prescriptions for Augmentin 875-125 mg Oral Tablet - take 1 tablet by ORAL route every 12 hours for 10 days; 20 tablet. and Forms are Medication Reconciliation Form, Thank You Letter, Antibiotic Education, Prescription Opioid Use. Follow up: Private Physician; When: 1 - 2 days; Reason: Recheck today's complaints. Follow up: Oziel Jauregui; When: 2 - 3 days; Reason: Recheck today's complaints, Continuance of care, Re-evaluation by your physician. Problem is new. Symptoms have improved. susie 22:06 21:49 Hospitalization Ordered by Mejia Cameron MD for Observation. Preliminary cg diagnosis is Unspecified kidney failure; Type 1 diabetes mellitus; Hyperkalemia; Cystitis. Bed requested for Telemetry/MedSurg (observation). Status is Observation. Condition is Fair. Problem is new. Symptoms have improved. UTI on Admission? Yes. [facility] 23:51 22:06 09/24/2017 21:49 Hospitalization Ordered by Mejia Cameron MD for Observation. aa1 Preliminary diagnosis is Unspecified kidney failure; Type 1 diabetes mellitus; Hyperkalemia; Cystitis. Bed requested for Telemetry/MedSurg (observation). Status is Observation. Condition is Fair. Problem is new. Symptoms have improved. UTI on Admission? Yes. cg
[2017-09-24 18:04] LABS: Bicarbonate 22 mmol/L (21-32); Sodium Level 139 mmol/L (136-145)
[2017-09-24 18:05] LABS: ALT/SGPT 16 U/L (12-78); AST/SGOT 16 U/L (15-37); Albumin 3.2 g/dL (3.4-5.0); Alkaline Phosphatase 167 U/L (45-117); BUN Blood Urea Nitrogen 56 mg/dL (7-18); Bilirubin Direct < 0.1 mg/dL (0-0.2); Bilirubin Total 0.3 mg/dL (0.2-1.0); Protein, Total 6.4 g/dL (6.4-8.2)
[2017-09-24 18:14] LABS: Magnesium 1.8 mg/dL (1.8-2.4)
[2017-09-24 18:16] LABS: Glucose Level 454 mg/dL (74-106); Potassium 6.1 mmol/L (3.5-5.1)
--- NOTE | 2017-09-24 19:51 | RAD REPORT ---
EXAM DESCRIPTION: CT - Stone Protocol - 09/24/2017 7:33 pm CLINICAL HISTORY: Flank pain. FLANK PAIN COMPARISON: CT ABD PELVIS W CONTRAST dated 10/27/2013; Head C Spine Cap Wo Con dated 04/14/2016 TECHNIQUE: Axial images were obtained without oral or IV contrast. Lack of contrast limits solid org an and vascular assessment. The [id number] spans the entirety of the system partially obscuring uppermost abdomen and lung bases. Coronal reformatted images were obtained and reviewed. All CT scans are performed using dose optimization technique as appropriate and may include automated exposure control or mA/KV adjustment according to patient size. FINDINGS: The lower lung garcia are clear. Several small stones are present in the gallbladder or ga llbladder remnant. Imaged portions of the liver and spleen show no suspicious findings on non-contrast imaging. The panc reas and adrenal glands are normal. No pathologic lymphadenopathy in the abdomen or pelvis. No urinary tract stones or obstructive uropathy. Atrophy of the right kidney is noted. No bowel obstruction, free air, free fluid or abscess. The appendix is not identified as a discrete s tructure, however, no secondary findings of appendicitis are identified. No significant bony abnormality. IMPRESSION: No urinary tract stones or obstructive uropathy. Several calcified stones are present in the gallbladder or gallbladder remnant.
[2017-09-24 20:35] LABS: Potassium 5.4 mmol/L (3.5-5.1)
[2017-09-24] MEDS ORDERED: ALBUTEROL 2.5 MG/3 ML NEB SOL ONE (20:50)
[2017-09-24] MEDS ORDERED: SOD POLYSTYREN SUL 15 GM/60 ML UCUP ONE (20:51)
[2017-09-24] MEDS ORDERED: ONDANSETRON 4 MG/2 ML VIAL ONE (22:01)
[2017-09-24] MEDS ORDERED: NA CHLORIDE 0.9% 1,000 ML ONE (22:01)
--- NOTE | 2017-09-24 23:31 | P.HP ---
Certification for Inpatient Patient admitted to: Observation With expected LOS: <2 Midnights Practitioner: I am a practitioner with admitting privileges, knowledge of patient current condition, hospital course, and medical plan of care. Services: Services provided to patient in accordance with Admission requirements found in Title 42 Section 412.3 of the Code of Federal Regulations Patient History Date of Service: 09/24/17 Reason for admission: Hyperkalemia, acute on chronic kidney disease History of Present Illness: Ms Garcia is a 76-year-old woman with multiple medical problems including, insulin-dependent diabetes mellitus, hypertension, CKD, CAD, atrial fibrillation on chronic anticoagulation, who was noticing since yesterday that her blood sugar has been rising. Yesterday was about 250 milligram/deciliters, and today it was above 400. She denied any abdominal pain, chest pain, or shortness of breath. She also denies fever, chills, or dysuria. ED lab work was significantly abnormal. Potassium level was 6.1, worsening renal function compared with baseline, BS 454, UA abnormal consistent with UTI. She was afebrile. Allergies Quinolones Allergy (Verified 05/24/16 07:32) Anaphylaxis Home Medications: Citalopram Hydrobromide [Celexa] 20 mg PO DAILY 01/02/12 Ferrous Sulfate [Feosol] 325 mg PO BID 10/28/13 Metoprolol Tartrate [Lopressor*] 50 mg PO DAILY 04/04/15 Aspirin 81 mg PO DAILY 08/21/15 Tramadol HCl [Ultram] 50 mg PO Q8H PRN #30 tablet 09/02/15 Chlorthalidone 1 tab PO DAILY 04/15/16 Insulin Degludec [Tresiba Flextouch U-200] 40 units SQ DAILY AFTER SUPPER Losartan Potassium 100 mg PO DAILY 04/15/16 Meclizine HCl [Antivert*] 25 mg PO TID 04/15/16 Simvastatin [Zocor*] 1 tab PO DAILY 04/15/16 - Past Medical/Surgical History Diabetic: Yes -: Atrial fibrillation, Cardiology-Dr. Camarena -: Chronic anticoagulation-Coumadin -: HTN -: GERD -: Chronic renal disease, Baseline GFR-30, Nephrology -: PVD -: Gout -: Depression with Anxiety -: Diabetes mellitus type 2 -: Coronary disease -: Carotid arterial disease -: Hyperlipidemia -: Appendectomy -: Tubal ligation -: Hysterectomy -: Heart Cath Psychosocial/ Personal History: Patient currently lives in assisted living facility-[facility]. She has 10 children. - Family History Brother -: Diabetes Mother -: Heart disease, Hypertension, Diabetes Notes: arthritis - Social History Smoking Status: Never smoker Alcohol use: No CD- Drugs: No Caffeine use: Yes Place of Residence: Home Review of Systems 10-point ROS is otherwise unremarkable Physical Examination - Vital Signs Temperature: 99 F Blood Pressure: 144/49 Pulse: 78 Respirations: 16 - Physical Exam General: Alert, In no apparent distress HEENT: Atraumatic, PERRLA, Mucous membr. moist/pink, EOMI, Sclerae nonicteric Neck: Supple, 2+ carotid pulse no bruit, No LAD, Without JVD or thyroid abnormality Respiratory: Clear to auscultation bilaterally, Normal air movement Cardiovascular: Normal S1 S2, No gallops Gastrointestinal: Normal bowel sounds, No tenderness Musculoskeletal: No tenderness Integumentary: No rashes Neurological: Normal speech, Normal strength at 5/5 x4 extr, Normal tone, Normal affect Lymphatics: No axilla or inguinal lymphadenopathy - Studies Laboratory Data (last 24 hrs) 09/24/17 20:06: Sodium 140, Potassium 5.4 H, BUN 54 H, Creatinine 1.80 H, Glucose 307 H 09/24/17 18:30: Sodium Cancelled, Potassium Cancelled, BUN Cancelled, Creatinine Cancelled, Glucose Cancelled 09/24/17 13:58: PT 28.3 H, INR 2.38, APTT 47.7 H 09/24/17 13:58: WBC 8.0, Hgb 9.9 L, Hct 30.9 L, Plt Count 225 09/24/17 13:58: Sodium 139, Potassium 6.1 H*, BUN 56 H, Creatinine 2.07 H, Glucose 454 H*, Magnesium 1.8, Total Bilirubin 0.3, AST 16, ALT 16, Alkaline Phosphatase 167 H Assessment and Plan - Problems (Diagnosis) (1) Acute kidney injury superimposed on chronic kidney disease Current Visit: Yes Status: Acute (2) Atrial fibrillation Onset Date: 04/17/16 Current Visit: No Status: Acute Qualifiers: Atrial fibrillation type: chronic Qualified Code(s): I48.2 - Chronic atrial fibrillation (3) Diabetes mellitus Onset Date: 07/06/15 Current Visit: No Status: Acute Qualifiers: Diabetes mellitus type: type 2 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 Diabetes mellitus complication status: with kidney complications Diabetes mellitus complication detail: with chronic kidney disease Chronic kidney disease stage: stage 4 (severe) Qualified Code(s): E11.22 - Type 2 diabetes mellitus with diabetic chronic kidney disease; N18.4 - Chronic kidney disease, stage 4 (severe); Z79.4 - longterm (current) use of insulin (4) Hyperglycemia Onset Date: 08/23/15 Current Visit: No Status: Acute (5) Hyperkalemia Onset Date: 11/09/14 Current Visit: No Status: Acute (6) UTI (urinary tract infection) Onset Date: 07/06/15 Current Visit: No Status: Acute Qualifiers: Urinary tract infection type: acute cystitis Hematuria presence: without hematuria Qualified Code(s): N30.00 - Acute cystitis without hematuria (7) Chronic anticoagulation Current Visit: No Status: Chronic (8) HTN (hypertension) Onset Date: 04/17/16 Current Visit: No Status: Chronic Qualifiers: Hypertension type: essential hypertension Qualified Code(s): I10 - Essential (primary) hypertension - Plan The patient will be admitted to the hospital due to hyperkalemia in context of acute on CKD. She also has had UTI. CT abdomen and pelvis remarkable for cholelithiasis without acute abnormality. Will continue IV fluids. She has received a rated Kayexalate treatment in ED, last potassium level was 5.4. Will continue electrolyte disturbance treatment and monitoring. Urine culture in process, will order empiric treatment with Rocephin for UTI. - Advance Directives Does patient have a Living Will: No Does patient have a Durable POA for Healthcare: No - Code Status/Comfort Care Code Status Assessed: Yes Code Status: Full Code
[2017-09-25] MEDS ORDERED: ACETAMINOPHEN 500 MG TAB PO PRN (00:07)
[2017-09-25] MEDS ORDERED: ONDANSETRON 4 MG/2 ML VIAL IV PRN (00:07)
[2017-09-25] MEDS: NA CHLORIDE 0.9% 1,000 ML IV SCH ×3 (00:07→19:32)
[2017-09-25 02:08] VITALS: BMI 32.9
[2017-09-25 06:32] LABS: Absolute Lymphocytes (CBC) 1.7 K/uL (0.7-4.9); Absolute Monocytes 0.3 K/uL (0.1-1.3); Basophils % 0.7 % (0-1.3); Eosinophils % 0.4 % (0-4.4); Hematocrit 30.7 % (36.0-45.0); Lymphocytes % 20.9 % (15.3-44.8); MCH 31.3 pg (27.0-35.0); MCV 94.9 fL (80-100); MPV 9.6 fL (7.6-11.3); Monocytes % 3.3 % (3.3-12.3); RBC Red Blood Cell Count 3.23 M/uL (3.86-4.86)
[2017-09-25 06:39] LABS: Magnesium 1.8 mg/dL (1.8-2.4); Potassium 5.3 mmol/L (3.5-5.1)
[2017-09-25] MEDS ORDERED: SOD POLYSTYREN SUL 15 GM/60 ML UCUP PO ONE (07:02)
[2017-09-25] MEDS: INSULIN -REGULAR HUMAN 50 UNIT/0.5 ML ML SQ SCH ×4 (08:12→21:02)
[2017-09-25] MEDS: CITALOPRAM 10 MG TABLET PO SCH (08:26)
[2017-09-25] MEDS: FERROUS SULFATE 325 MG TAB PO SCH (08:26)
[2017-09-25] MEDS: PANTOPRAZOLE 40MG TABLET PO SCH (08:26)
[2017-09-25] MEDS: ASPIRIN 81 MG CHEWABLE TABLET PO SCH (08:26)
--- NOTE | 2017-09-25 08:33 | RAD REPORT ---
EXAM DESCRIPTION: RAD - Chest Single View - 09/24/2017 11:16 pm CLINICAL HISTORY: COUGH Chest pain. COMPARISON: Chest Single View dated 04/15/2016; Chest Single View dated 04/14/2016; Chest Single View dated 10/27/2015; Chest Single View dated 10/26/2015 FINDINGS: Portable technique limits examination quality. The lungs are grossly clear. The heart is normal in size. No displaced fractures. IMPRESSION: No acute intrathoracic process suspected.
[2017-09-25 08:38] LABS: Protime INR 2.04
[2017-09-25] MEDS ORDERED: MAGNESIUM SULFATE 1 gm IVPB 1 GM/100 ML BAG IV ONE (09:00)
[2017-09-25 11:50] LABS: Potassium 5.1 mmol/L (3.5-5.1)
[2017-09-25] MEDS: CEFTRIAXONE/SWI 1gm 1 GM/10 ML SYR IV SCH (12:03)
[2017-09-25] MEDS ORDERED: HYDROCODONE/APAP 5/325 MG TAB PO PRN (12:06)
[2017-09-25] MEDS ORDERED: TRAMADOL HCL 50 MG TAB PO PRN (12:06)
--- NOTE | 2017-09-25 12:06 | P.PN ---
Subjective Date of Service: 09/25/17 Chief Complaint: Hyperkalemia, acute on chronic kidney disease Pt seen and examined at bedside with RN Chart Reviewed, Case DW with family at this time Pt doing well overall. No c/o today Review of Systems General: As per HPI Physical Examination - Vital Signs Temperature: 97.5 F Blood Pressure: 165/65 Pulse: 77 Respirations: 16 Pulse Ox (%): 93 - Physical Exam General: Alert, In no apparent distress HEENT: Atraumatic, PERRLA, EOMI Neck: Supple, JVD not distended Respiratory: Clear to auscultation bilaterally, Normal air movement Cardiovascular: Regular rate/rhythm, Normal S1 S2 Gastrointestinal: Normal bowel sounds, No tenderness Musculoskeletal: No tenderness Integumentary: No rashes Neurological: Normal speech, Normal tone, Normal affect Lymphatics: No axilla or inguinal lymphadenopathy - Studies Laboratory Data (last 24 hrs) 09/24/17 20:06: Sodium 140, Potassium 5.4 H, BUN 54 H, Creatinine 1.80 H, Glucose 307 H 09/24/17 18:30: Sodium Cancelled, Potassium Cancelled, BUN Cancelled, Creatinine Cancelled, Glucose Cancelled 09/24/17 13:58: PT 28.3 H, INR 2.38, APTT 47.7 H 09/24/17 13:58: WBC 8.0, Hgb 9.9 L, Hct 30.9 L, Plt Count 225 09/24/17 13:58: Sodium 139, Potassium 6.1 H*, BUN 56 H, Creatinine 2.07 H, Glucose 454 H*, Magnesium 1.8, Total Bilirubin 0.3, AST 16, ALT 16, Alkaline Phosphatase 167 H Medications List Reviewed: Yes Assessment & Plan - Problems (Diagnosis) (1) Weakness generalized Onset Date: 11/09/14 Current Visit: No Status: Chronic Plan: Generalized weakness most likely 2.2 to UTI vs AKD -PT.OT consulted. -Fall precaution given (2) Chronic kidney disease Onset Date: 04/17/16 Current Visit: No Status: Acute Plan: Acute on Chronic KD with Hyperkalemia -IV fluids and cardiac tele for now Qualifiers: Chronic kidney disease stage: stage 3 (moderate) Qualified Code(s): N18.3 - Chronic kidney disease, stage 3 (moderate) (3) UTI (urinary tract infection) Onset Date: 09/25/17 Current Visit: Yes Status: Acute Plan: UA concerning for UTI -urine Culture pending -IV rocephin for now Qualifiers: Urinary tract infection type: acute cystitis Hematuria presence: without hematuria Qualified Code(s): N30.00 - Acute cystitis without hematuria (4) Atrial fibrillation Onset Date: 04/17/16 Current Visit: No Status: Chronic Qualifiers: Atrial fibrillation type: chronic Qualified Code(s): I48.2 - Chronic atrial fibrillation (5) CHF (congestive heart failure) Onset Date: 07/06/15 Current Visit: No Status: Chronic Qualifiers: Heart failure type: unspecified Heart failure chronicity: chronic Qualified Code(s): I50.9 - Heart failure, unspecified (6) Depression with anxiety Onset Date: 04/17/16 Current Visit: No Status: Chronic (7) Diabetes mellitus Onset Date: 07/06/15 Current Visit: No Status: Chronic Qualifiers: Diabetes mellitus type: type 2 Diabetes mellitus correction insulin use: with correction use Diabetes mellitus complication status: with kidney complications Diabetes mellitus complication detail: with chronic kidney disease Chronic kidney disease stage: stage 4 (severe) Qualified Code(s): E11.22 - Type 2 diabetes mellitus with diabetic chronic kidney disease; N18.4 - Chronic kidney disease, stage 4 (severe); Z79.4 - ferry terminal agent (current) use of insulin (8) GERD (gastroesophageal reflux disease) Onset Date: 04/17/16 Current Visit: No Status: Chronic Qualifiers: Esophagitis presence: without esophagitis Qualified Code(s): K21.9 - Gastro -esophageal reflux disease without esophagitis Discharge Plan: Home Plan to discharge in: 48 Hours - Code Status/Comfort Care Code Status Assessed: Yes Critical Care: No
[2017-09-25] MEDS: MECLIZINE HCL 12.5 MG TAB PO SCH ×2 (13:40→21:02)
[2017-09-25] MEDS: WARFARIN SODIUM 2.5 MG TAB PO SCH (16:46)
[2017-09-25] MEDS ORDERED: CARVEDILOL 12.5 MG TAB PO ONE (17:00)
[2017-09-25 18:07] LABS: Urine Protein/Creatinine Ratio 0.98 ratio (<0.15)
--- NOTE | 2017-09-25 20:43 | CON ---
Date of Consultation: 09/25/2017 Additional Consulting Physicians: Dr. Waldron and Dr. Laura. Reason For Consultation: Elevated BUN and creatinine, fluid management. History Of Present Illness: This is a pleasant 76-year-old female, follow up in the office with sign ificant past medical history of diabetes complicated with neuropathy, and nephropathy, with retinopat hy, hypertension, hyperlipidemia, coronary artery disease, status post PTCA, chronic kidney disease s econdary to diabetes and renal vascular disease, baseline creatinine 1.6, back in October 2016, 1.6 -1.7, up to July 2017 with GFR of 27-29. The patient was in her regular state of health, according t o her, for the last 2 months started having some leg pain, weakness, and losing appetite. For that r marzena, the patient came to the hospital. The patient denied any fever, any chills. Denied taking an y nonsteroidal for pain medication. Primary workup in the ER found to have severe hyperglycemia abov e 400 without any shortness of breath with hyperkalemia 6.1 and worsening kidney function. For that reason, patient was admitted and we have been consulted. Over the night, the patient received a cock tail treatment. Creatinine trended down from 2.07 down to 1.8. GFR improved to 27, which is close t o her baseline. Potassium gradually trended down to 5.1. Again, patient denied taking any nonsteroi tate. No other pain medication. No contrast. No IV contrast. No antibiotic. Past Medical History: Include, 1.Hypertension. 2.Hyperlipidemia. 3.Diabetes complicated with neuropathy, retinopathy, and nephropathy. 4.Chronic kidney disease, baseline creatinine 1.7. GFR around 27. 5.Hyperlipidemia. 6.Coronary artery disease, status post PTCA. Social History: Include, denies smoking, denies drinking, denies drug abuse. Family History: Positive for diabetes and hypertension. Allergies: NO KNOWN DRUG ALLERGIES. Past Surgical History: Includes, 1.Hysterectomy. 2.Appendectomy. 3.Rotator cuff shoulder repair. 4.PTCA. Review of Systems: Head and Neck: No red eye. No ear pain. GI: No nausea. No vomiting. : No polyuria. No dysuria. No hematuria. PUBLICATION SPECIALIST: No vaginal discharge. Respiratory: No shortness of breath. Cardiovascular: Has leg swelling. Endocrine: No polydipsia. Skin: No rash. Neuro: Generalized fatigue. Weakness. Musculoskeletal: Only weakness. Medications: Home include, Coumadin, tramadol, Lyrica, pantoprazole, meclizine, losartan 100, insuli n, ferrous sulfate, citalopram, cholecalciferol, chlorthalidone, atorvastatin, aspirin. Current medication in the hospital include, Arimidex, aspirin, atorvastatin, ceftriaxone, chlorthalid one, citalopram, losartan, meclizine, Zofran, pantoprazole, IV fluid, and Coumadin. Physical Examination: Vital Signs: When I saw the patient, blood pressure of 165/65, pulse of 77, afebrile. Chest: Clear to auscultation. Heart: S1, S2. Regular. Abdomen: Soft, questionable ascites. Extremities: No edema. Neurologic: Alert and oriented x3. No focal. Laboratory Data: Sodium 143, potassium 5.1, bicarb 23, BUN 48, creatinine 1.8, calcium 8.4. TSH of 1.9. Back in 2016, PTH 116, WBC of 8, H and H, 10.1/30.7, platelet of 200. Protein creatinine +1, r bc of 10, wbc of 50. Protein/creatinine ratio is 0.1. CT abdomen and pelvis, no obstruction. Assessment And Plan: Acute kidney injury secondary to prerenal, secondary to glucose diuresis superi mposed with ARB and chlorthalidone, on the recovery, looked to me start to be in normal volume, persi stent of marginal hyperkalemia. 1.I am going to discontinue chlorthalidone, discontinue ARB. 2.I going to continue current hydration. We will go ahead and send for TSH, and we will repeat prot ein creatinine. We will follow up. 3.Hypertension, control not optimal. Given the acute kidney injury, I am going to start the patient on holding the chlorthalidone and losartan and continue on beta-yunier with the hydralazine to esta blish better volume control. 4.Hyperkalemia secondary to renal failure and ARB. Discontinue ARB. We will monitor the patient. 5.Urinary tract infection. Continue current antibiotic. We will follow up culture. Thank you Dr. Laura for allowing us to participate in the care of your patient. Case discussed with Dr. Laura. Discussed with the patient, the patient verbalized understanding. FIDEL Voice ID: [id number] Report ID: [id number]
[2017-09-25] MEDS: ATORVASTATIN 40 MG TAB PO SCH (21:01)
[2017-09-25] MEDS: HYDRALAZINE HCL 25 MG TABLET PO SCH (21:01)
[2017-09-26 06:26] VITALS: O2SAT 93
[2017-09-26 07:10] LABS: Albumin 2.6 g/dL (3.4-5.0); Ferritin 304.1 ng/mL (8-388); Folic Acid, (Folate) 11.6 ng/mL (3.1-17.5); Magnesium 2.1 mg/dL (1.8-2.4); Phosphorus 2.7 mg/dL (2.5-4.9); Potassium 4.9 mmol/L (3.5-5.1)
[2017-09-26 07:11] LABS: Thyroid Stimulating Hormone 4.68 uIU/mL (0.36-3.74)
[2017-09-26 07:50] LABS: RBC Red Blood Cell Count 3.1 M/uL (3.86-4.86)
[2017-09-26] MEDS: INSULIN -REGULAR HUMAN 50 UNIT/0.5 ML ML SQ SCH ×4 (08:50→20:40)
[2017-09-26] MEDS: ASPIRIN 81 MG CHEWABLE TABLET PO SCH (08:52)
[2017-09-26] MEDS: FERROUS SULFATE 325 MG TAB PO SCH (08:53)
[2017-09-26] MEDS: VITAMIN D 5,000 UNIT CAP PO SCH (08:53)
[2017-09-26] MEDS: PANTOPRAZOLE 40MG TABLET PO SCH (08:53)
[2017-09-26] MEDS: MECLIZINE HCL 12.5 MG TAB PO SCH ×3 (08:53→20:37)
[2017-09-26] MEDS: HYDRALAZINE HCL 25 MG TABLET PO SCH ×2 (08:53→20:37)
[2017-09-26] MEDS: PREGABALIN 50 MG CAP PO SCH (08:53)
[2017-09-26] MEDS: CITALOPRAM 10 MG TABLET PO SCH (08:53)
[2017-09-26] MEDS: CEFTRIAXONE/SWI 1gm 1 GM/10 ML SYR IV SCH (08:54)
[2017-09-26] MEDS: ANASTROZOLE 1 MG TAB PO SCH (08:56)
[2017-09-26] MEDS ORDERED: LOSARTAN POTASSIUM 50 MG TABLET PO SCH (09:00)
[2017-09-26] MEDS ORDERED: CHLORTHALIDONE 25 MG TAB PO SCH (09:00)
[2017-09-26] MEDS ORDERED: SOD FERRIC GLUC COMPLX/SUCROSE 250 MG in NA CHLORIDE 0.9% 250 ML IV SCH (12:00)
--- NOTE | 2017-09-26 13:14 | P.PN ---
Subjective Date of Service: 09/26/17 Chief Complaint: Hyperkalemia, acute on chronic kidney disease Pt seen and examined at bedside with RN Chart Reviewed, Case DW with family at this time Pt doing well overall. No c/o today Working with PT Review of Systems 10-point ROS is otherwise unremarkable General: As per HPI Physical Examination - Vital Signs Temperature: 97.0 F Blood Pressure: 168/78 Pulse: 68 Respirations: 18 Pulse Ox (%): 95 - Physical Exam General: Alert, In no apparent distress HEENT: Atraumatic, PERRLA, EOMI Neck: Supple, JVD not distended Respiratory: Clear to auscultation bilaterally, Normal air movement Cardiovascular: Regular rate/rhythm, Normal S1 S2 Gastrointestinal: Normal bowel sounds, No tenderness Musculoskeletal: No tenderness Integumentary: No rashes Neurological: Normal speech, Normal tone, Normal affect Lymphatics: No axilla or inguinal lymphadenopathy - Studies Microbiology Data (last 24 hrs): 09/24/17 13:35 Clean Catch Urine [place] Count - Final >100,000 CFU/ML. 09/24/17 13:35 Clean Catch Urine - Final Escherichia Coli Medications List Reviewed: Yes Assessment & Plan - Problems (Diagnosis) (1) Weakness generalized Onset Date: 11/09/14 Current Visit: No Status: Chronic Plan: Generalized weakness most likely 2.2 to UTI vs AKD -PT.OT consulted. -Fall precaution given (2) Chronic kidney disease Onset Date: 04/17/16 Current Visit: No Status: Acute Plan: Acute on Chronic KD with Hyperkalemia -IV fluids and cardiac tele for now Qualifiers: Chronic kidney disease stage: stage 3 (moderate) Qualified Code(s): N18.3 - Chronic kidney disease, stage 3 (moderate) (3) UTI (urinary tract infection) Onset Date: 09/25/17 Current Visit: Yes Status: Acute Plan: UA concerning for UTI -urine Culture + for ECOLI -IV rocephin for now Qualifiers: Urinary tract infection type: site unspecified Hematuria presence: without hematuria Qualified Code(s): N39.0 - Urinary tract infection, site not specified (4) Atrial fibrillation Onset Date: 04/17/16 Current Visit: No Status: Chronic Qualifiers: Atrial fibrillation type: chronic Qualified Code(s): I48.2 - Chronic atrial fibrillation (5) CHF (congestive heart failure) Onset Date: 07/06/15 Current Visit: No Status: Chronic Qualifiers: Heart failure type: unspecified Heart failure chronicity: chronic Qualified Code(s): I50.9 - Heart failure, unspecified (6) Depression with anxiety Onset Date: 04/17/16 Current Visit: No Status: Chronic (7) Diabetes mellitus Onset Date: 07/06/15 Current Visit: No Status: Chronic Qualifiers: Diabetes mellitus type: type 2 Diabetes mellitus care home insulin use: with terminal operations manager use Diabetes mellitus complication status: with kidney complications Diabetes mellitus complication detail: with chronic kidney disease Chronic kidney disease stage: stage 4 (severe) Qualified Code(s): E11.22 - Type 2 diabetes mellitus with diabetic chronic kidney disease; N18.4 - Chronic kidney disease, stage 4 (severe); Z79.4 - terminologist (current) use of insulin (8) GERD (gastroesophageal reflux disease) Onset Date: 04/17/16 Current Visit: No Status: Chronic Qualifiers: Esophagitis presence: without esophagitis Qualified Code(s): K21.9 - Gastro -esophageal reflux disease without esophagitis
--- NOTE | 2017-09-26 16:21 | PN ---
Date of Progress Note: 09/26/2017 Subjective: The patient doing better ambulating. Physical Examination: Vital Signs: Blood pressure 148/71, pulse of 71, afebrile. The patient had good urine output for vo iding. Chest: Clear to auscultation. Heart: S1, S2. Regular. Abdomen: Soft, nontender. Extremities: Trace edema. Laboratory Data: H and H 10.1/30.7. Sodium 143, potassium 4.9, bicarb 24, BUN 43, creatinine 1.8, G FR of 27, calcium 7.4, phosphorus 2.7, magnesium 2.1, TSAT of 23, ferritin of 304. TSH 4.6. PTH 225 . Medications: Current medications the patient is on include: 1.Aspirin. 2.Ceftriaxone. 3.Arimidex. 4.Ferrous sulfate. 5.Coumadin. 6.Atorvastatin. 7.Carvedilol 12.5. 8.Hydralazine. 9.Lyrica. 10.Meclizine. 11.Zofran. 12.Levothyroxine. 13.Hydrocodone. 14.Tramadol. 15.Cholecalciferol. Assessment And Plan: 1.Acute kidney injury secondary to glucose diuresis and ARB with chlorthalidone on the recovery phas e. The patient closer to her baseline, looked to me, normal volume currently. We will keep holding IV fluid. 2.Hypertension, controlled, optimal, continue current medication, keep holding ARB. 3.Hyperkalemia secondary to renal failure and hypothyroidism, keep holding ARB, agree with levothyro xine. 4.Iron deficiency anemia and possible that can contribute to her hyperkalemia. I am going to start the patient on IV iron. 5.Secondary hyperparathyroidism, calcium and phosphorus on the goal. I am not going to add any calc itriol for the time being. We will monitor. 6.Pneumonia. Continue current antibiotics. 7.Urinary tract infection culture Escherichia coli sensitive to Levaquin. The patient can be switc hed to Levaquin except because of the allergy. I am going to switch the patient to Augmentin and we will follow up. FIDEL Voice ID: [id number] Report ID: [id number]
[2017-09-26] MEDS: WARFARIN SODIUM 2.5 MG TAB PO SCH (17:14)
[2017-09-26] MEDS: ATORVASTATIN 40 MG TAB PO SCH (20:37)
[2017-09-26] MEDS: AMOX/K CLAV 500 MG TAB PO SCH (20:37)
[2017-09-27] MEDS ORDERED: LEVOTHYROXINE SOD 0.025 MG TAB PO SCH (06:00)
[2017-09-27 06:37] LABS: Albumin 2.5 g/dL (3.4-5.0); Phosphorus 2.6 mg/dL (2.5-4.9); Potassium 4.7 mmol/L (3.5-5.1)
[2017-09-27] MEDS: ANASTROZOLE 1 MG TAB PO SCH (09:03)
[2017-09-27] MEDS: INSULIN -REGULAR HUMAN 50 UNIT/0.5 ML ML SQ SCH (09:03)
[2017-09-27 09:04] VITALS: BP 188/88; TEMP 97.2
[2017-09-27] MEDS: VITAMIN D 5,000 UNIT CAP PO SCH (09:04)
[2017-09-27] MEDS: HYDRALAZINE HCL 25 MG TABLET PO SCH (09:04)
[2017-09-27] MEDS: MECLIZINE HCL 12.5 MG TAB PO SCH (09:04)
[2017-09-27] MEDS: AMOX/K CLAV 500 MG TAB PO SCH (09:05)
[2017-09-27] MEDS: PANTOPRAZOLE 40MG TABLET PO SCH (09:05)
[2017-09-27] MEDS: PREGABALIN 50 MG CAP PO SCH (09:05)
[2017-09-27] MEDS: FERROUS SULFATE 325 MG TAB PO SCH (09:05)
[2017-09-27] MEDS: CITALOPRAM 10 MG TABLET PO SCH (09:05)
[2017-09-27] MEDS: ASPIRIN 81 MG CHEWABLE TABLET PO SCH (09:06)
[2017-09-27] MEDS ORDERED: DOCUSATE NA 100 MG CAP PO SCH (21:00)
--- NOTE | 2017-09-28 07:53 | DS ---
Date of Discharge: 09/27/2017 Consultants: Dr. Jauregui with Nephrology. Admitting Diagnoses: 1.Acute on chronic kidney injury. 2.Atrial fibrillation, chronic, on anticoagulation. 3.Diabetes mellitus type 2 with meterman use of insulin with chronic kidney disease stage 4. 4.Hyperkalemia. 5.Urinary tract infection and acute cystitis without hematuria. 6.Essential hypertension. Discharge Diagnoses: 1.Generalized weakness, improved. 2.Acute on chronic kidney disease stage 3. Creatinine stable. 3.Urinary tract infection, acute cystitis without hematuria secondary to Escherichia coli. 4.Atrial fibrillation, chronic, on anticoagulation. 5.Chronic congestive heart failure with EF of 57%, diastolic dysfunction. 6.Depression with anxiety. 7.Diabetes mellitus type 2 with meterman use of insulin with chronic kidney disease. 8.Gastroesophageal reflux disease. 9.Peripheral vascular disease. 10.Gout. 11.Coronary artery disease, council artery and council heart without angina. 12.Carotid artery disease. Hospital Course: The patient is a 76-year-old female with multiple chronic medical conditions includ ing diabetes, hypertension, heart disease, chronic kidney disease, atrial fibrillation, on anticoagul ation, comes in with hyperkalemia and potassium of 6.1 and UTI. The patient also has some generalize d weakness. The patient was treated for the hyperkalemia. Dr. Jauregui was consulted regarding the acute on chronic kidney injury. Creatinine improved back to her baseline. The patient's white count remained stable. Her INR was within therapeutic range. The patient did well. She was able to ambu late without any difficulty. She was seen by Dr. Jauregui with Nephrology. She was seen by PT and w as working well with PT. Her urine culture grew out E coli, which was sensitive to Augmentin. The p atient was switched over to Augmentin p.o. The patient was then cleared for discharge from Nephrolog y standpoint and was discharged home in a stable condition. Activity: As tolerated. Medications: As per medication reconciliation list. Followup: Follow up with primary care physician, Dr. Noman Laura, in 2 to 3 days. Diet: Diabetic. Physical Examination: General: Awake, alert, oriented x3, not in acute distress. CV: S1, S2. No murmurs. Respiratory: Moving air well bilaterally. No wheezing. Gastrointestinal: Abdomen is soft, nontender, nondistended. Positive bowel sounds. Extremities: No clubbing, cyanosis, or edema. Neurologic: Nonfocal. SA/MODL Voice ID: [id number] Report ID: [id number]
== END 2017-09-27 11:34 | disposition home or self-care (01) ==
LOC: ER 12:38 → ERHOLD 21:51 → 4TH 23:41
PROVIDERS: ADMIT Internal Medicine; ATTEND Internal Medicine
DX: I13.0 Hypertensive heart and chronic kidney disease with heart failure and stage 1 through stage 4 chronic kidney disease, or unspecified chronic kidney disease (principal); E11.22 Type 2 diabetes mellitus with diabetic chronic kidney disease; N18.3 Chronic kidney disease, stage 3 (moderate); I50.33 Acute on chronic diastolic (congestive) heart failure; N17.9 Acute kidney failure, unspecified; E87.5 Hyperkalemia; F41.8 Other specified anxiety disorders; N39.0 Urinary tract infection, site not specified; B96.20 Unspecified Escherichia coli [E. coli] as the cause of diseases classified elsewhere; K21.9 Gastro-esophageal reflux disease without esophagitis; I25.10 Atherosclerotic heart disease of native coronary artery without angina pectoris; N25.81 Secondary hyperparathyroidism of renal origin; I48.2 Chronic atrial fibrillation; D50.9 Iron deficiency anemia, unspecified; Z79.4 Long term (current) use of insulin; Z79.01 Long term (current) use of anticoagulants; Z98.61 Coronary angioplasty status
CPT/HCPCS: 36415 ×3; 71045; 74176; 76377; 80048 ×4; 80069 ×2; 80076; 82010; 82570; 82607; 82728; 82746; 82962 ×13; 83540; 83735 ×3; 83970; 84156; 84439; 84443; 84466; 84484; 85025 ×2; 85044; 85610 ×2; 85730; 87077; 87086; 87088; 87186; 93005; 97116 ×2; 97163; 97530; 99285; J0696 ×3; J2405; J2916; J3475; J7030 ×3; 81003; 81015; 96361; 96374; 96375; G0378

== ENCOUNTER 2017-09-29 13:47 | Emergency (ER) | payer OTHER ==
--- OUTSIDE RECORDS SUMMARY | 2017-09-29 13:50 | XMS REPORT ---
:1940 Author Organization eClinicalWorks Care Team Providers Name Role Phone Laura, [facility] Provider Role Unavailable Allergies, Adverse Reactions, Alerts [...] End Status Dosage System Date Date Citalopram [facility] 07716474176 20 MG Orally Active 1 tablet Hydrobromide Once a day Coumadin ND 20022041578 2 MG Orally Active 1 tablet Once a day Lipitor ND 63914802051 40 MG Active 1 TAB(S) ONCE A DAY ORALLY Meclizine HCl ND 33729591621 25 MG Orally Active 1 tablet Three times a day Ferrous Sulfate ND 88054513956 325 (65 Fe) MG May Active 1 tablet Orally Once a 2017 day Tresiba FlexTouch ND 79892773630 200 UNIT/ML Active not Subcutaneous defined Chlorthalidone ND 97429576128 25 MG Orally Active 1 tablet Once a day in the morning with food FreeStyle Lite [facility] 00776769740 0 Active CHECK Test BLOOD SUGAR TWICE DAILY Flonase Allergy [facility] 45106704210 50 MCG/ACT Active 1 spray in Relief Nasally Once a each day nostril Meclizine HCl [facility] 29984865784 25 Active CHEW AND SWALLOW 1 TABLET THREE TIMES DAILY Anastrozole [facility] 81820566348 1 MG Orally Active 1 tablet Once a day Protonix [facility] 35342051312 40 MG Active 1 TAB(S) ONCE A DAY ORALLY Losartan [facility] 01375822587 100 MG Orally Active 1 tablet Potassium Once a day Topamax [facility] 97266063723 50 MG Orally Active 1 tablet Once a day Protonix [facility] 50364909490 40 MG Orally Active 1 tablet Once a day Tresiba FlexTouch [facility] 63932323113 200 UNIT/ML Active 40 UNITS DAILY Results No Known Results Summary Purpose eClinicalWorks Submission
--- OUTSIDE RECORDS SUMMARY | 2017-09-29 13:50 | XMS REPORT ---
:1940 Author Organization eClinicalWorks Care Team Providers Name Role Phone Valentín [facility] Provider Role Unavailable Allergies No Known Allergies [...] Start End Date Status Dosage System Date [facility] 12059503311 200 UNIT/ML Active 70 UNITS FlexTouch Subcutaneous DAILY Increase 2 untis after 3 day if BS are high Results No Known Results Summary Purpose eClinicalWorks Submission
--- OUTSIDE RECORDS SUMMARY | 2017-09-29 13:50 | XMS REPORT ---
[...] Status Dosage System Date Date FreeStyle Lite [facility] 00698787957 0 Active CHECK Test BLOOD SUGAR TWICE DAILY Lipitor [facility] 06299337871 40 MG Active 1 TAB(S) ONCE A DAY ORALLY Losartan [facility] 52138778094 100 MG Orally Active 1 tablet Potassium Once a day Meclizine HCl [facility] 84127072191 25 Active CHEW AND SWALLOW 1 TABLET THREE TIMES DAILY Flonase Allergy [facility] 91414312947 50 MCG/ACT Active 1 spray in Relief Nasally Once a each day nostril Ferrous Sulfate [facility] 41275979777 325 (65 Fe) MG Active 1 tablet Orally Once a day Tresiba FlexTouch [facility] 33002065842 200 UNIT/ML Active 70 UNITS Subcutaneous DAILY Increase 2 untis after 3 day if BS are high Citalopram [facility] 98034383277 20 MG Orally Active 1 tablet Hydrobromide Once a day Chlorthalidone [facility] 54152043089 25 MG Orally Active 1 tablet Once a day in the morning with food Tresiba FlexTouch [facility] 98444300086 200 UNIT/ML Active not Subcutaneous defined Anastrozole [facility] 08825400463 1 MG Orally Active 1 tablet Once a day Topamax [facility] 78367689582 50 MG Orally Active 1 tablet Once a day Protonix [facility] 93015823951 40 MG Active 1 TAB(S) ONCE A DAY ORALLY Lipitor [facility] 83976350257 40 MG Orally Active 1 tablet Once a day Coumadin [facility] 55638193927 2 MG Orally Active 1 tablet Once a day BD Pen Needle [facility] 55914053454 0 Active USE DAILY Short U/F Citalopram [facility] 10842433970 20 Active TAKE 1 Hydrobromide TABLET BY MOUTH EVERY DAY Protonix [facility] 75579953050 40 MG Orally Active 1 tablet Once a day Results No Known Results Summary Purpose eClinicalWorks Submission
[2017-09-29] MEDS ORDERED: NA CHLORIDE 0.9% 1,000 ML ONE (17:27)
[2017-09-29] MEDS ORDERED: INSULIN -REGULAR HUMAN 50 UNIT/0.5 ML ML ONE ×2 (17:27→18:39)
[2017-09-29] MEDS ORDERED: ACETAMINOPHEN 500 MG TAB ONE (17:28)
--- NOTE | 2017-09-29 17:31 | RAD REPORT ---
EXAM DESCRIPTION: CT - Head Brain Wo Cont - 09/29/2017 5:21 pm CLINICAL HISTORY: Dizziness COMPARISON: 2016 TECHNIQUE: Computed axial tomography of the head was obtained. IV contrast was not requested. All CT scans are performed using dose optimization technique as appropriate and may include automated exposure control or mA/KV adjustment according to patient size. FINDINGS: An intracranial bleed is not seen . The ventricles are normal in caliber. No extra-axial fluid collection is noted. Fluid within the sinuses/ mastoids is not seen. IMPRESSION: No acute intracranial abnormality is seen. If patient's symptoms persist MRI of the bra in would be recommended.
--- NOTE | 2017-09-29 17:33 | RAD REPORT ---
EXAM DESCRIPTION: Kya Single View09/29/2017 5:26 pm CLINICAL HISTORY: Shortness of breath COMPARISON: October 02, 2017 FINDINGS: Lung bases are hazy. The upper lobes appear clear. The heart is borderline enlarged IMPRESSION: Lung bases are hazy probably secondary to overlying soft tissue. Infiltrates can have th is appearance but are considered less likely. PA and lateral chest series would be helpful for furthe r evaluation
[2017-09-29 17:44] LABS: Urine Blood TRACE (NEG); Urine Glucose 2+ (NEG); Urine Protein 2+ (NEG); Urine pH 5.5 (5.0-7.0)
[2017-09-29 17:45] LABS: Urine Bacteria <20 /HPF (<20); Urine Culture Reflex Order NOT NEEDED; Urine RBC <5 /HPF (NONE SEEN)
[2017-09-29 18:07] LABS: Absolute Lymphocytes (CBC) 1.6 K/uL (0.7-4.9); Absolute Monocytes 0.4 K/uL (0.1-1.3); Absolute Neutrophil 4.7 K/uL (1.8-8.0); Basophils % 1.4 % (0-1.3); Eosinophils % 3.6 % (0-4.4); Hematocrit 31.2 % (36.0-45.0); Lymphocytes % 22.7 % (15.3-44.8); MCH 31.3 pg (27.0-35.0); MCV 95.2 fL (80-100); MPV 9.9 fL (7.6-11.3); Monocytes % 5.1 % (3.3-12.3); RBC Red Blood Cell Count 3.28 M/uL (3.86-4.86)
[2017-09-29 18:24] LABS: Protime INR 1.71
[2017-09-29 18:41] LABS: Albumin 3.1 g/dL (3.4-5.0); Bilirubin Direct 0.1 mg/dL (0-0.2); Bilirubin Total 0.6 mg/dL (0.2-1.0); Magnesium 1.9 mg/dL (1.8-2.4)
[2017-09-29] MEDS ORDERED: MAGNE/ALUM HYDROXD 30 ML UCUP ONE (19:18)
[2017-09-29] MEDS ORDERED: LIDOCAINE VISCOUS 2% SOLN 15 ML UDC ONE (19:18)
[2017-09-29] MEDS ORDERED: cloNIDine HCl 0.1 MG TAB ONE (19:37)
--- NOTE | 2017-09-29 20:28 | EDPHYS ---
Physician Documentation [facility] Name: Sarah Garcia Age: 76 yrs Sex: Female : 1940 Arrival Date: 09/29/2017 Time: 13:49 Bed 30 Private MD: Noman Laura ED Physician Tayo Mccallum HPI: 09/29 16:43 This 76 yrs old Female presents to ER via Wheelchair with complaints of High cp Blood Sugar. 16:45 The patient or guardian reports hyperglycemia. cp 16:45 Onset: The symptoms/episode began/occurred today. cp 16:45 Associated signs and symptoms: Pertinent positives: dizziness, headache, Pertinent cp negatives: vomiting, chest pain, abdominal pain. Current symptoms: In the emergency department the patient's symptoms are unchanged from the initial presentation, despite home interventions. Historical: - Allergies: 13:55 QUINOLONES; sv - Home Meds: 13:55 anastrozole 1 mg Oral tab 1 tab once daily [Active]; aspirin 81 mg Oral chew 1 tab once sv daily [Active]; atorvastatin 40 mg Oral tab 1 tab once daily [Active]; BREAST CANCER PILL AND RADIATION [Active]; citalopram 20 mg tab 1 tab once daily [Active]; chlorthalidone 25 mg Oral tab 1 tab once daily [Active]; Coumadin 2.5 mg Oral tab 1 tab once daily [Active]; ferrous sulfate 325 mg (65 mg iron) Oral tab [Active]; losartan 100 mg Oral tab 1 tab once daily [Active]; Lyrica Oral 1 cap [Active]; meclizine 25 mg Oral chew 1 tab once daily [Active]; miconazole nitrate 1,200-2 mg-% Vaginal kit 2 times per day [Active]; [place] 5-325 mg Oral tab 1 tab as needed for Pain [Active]; pantoprazole 40 mg Oral TbEC 1 tab once daily [Active]; tramadol 50 mg Oral tab 1 tab daily [Active]; TRESIBA FLEXTOUCH U-100, 40 UINTIS [Active]; Vitamin D Oral [Active]; - PMHx: 13:55 Atrial Fib; Diabetes - IDDM; GERD; High Cholesterol; Hypertension; Myocardial sv infarction; - Immunization history:: Adult Immunizations up to date. - Ebola Screening: : No symptoms or risks identified at this time. - Social history:: Smoking status: Patient/guardian denies using tobacco. ROS: 16:50 Constitutional: Negative for body aches, chills, fever, poor PO intake. cp 16:50 Eyes: Negative for injury, pain, redness, and discharge. cp 16:50 ENT: Negative for drainage from ear(s), ear pain, sore throat, difficulty swallowing, difficulty handling secretions. 16:50 Cardiovascular: Negative for chest pain, edema, palpitations. 16:50 Respiratory: Negative for cough, shortness of breath, wheezing. 16:50 Abdomen/GI: Negative for abdominal pain, nausea, vomiting, and diarrhea, constipation, black/tarry stool, rectal bleeding. 16:50 : Negative for urinary symptoms. 16:50 Skin: Negative for cellulitis, rash. 16:50 Neuro: Positive for dizziness, headache, Negative for altered mental status, syncope, near syncope, weakness. 16:50 All other systems are negative. Exam: 16:58 Constitutional: The patient appears in no acute distress, alert, awake, cp non-diaphoretic, non-toxic, well developed, well nourished. 16:58 Head/Face: Normocephalic, atraumatic. cp 16:58 Eyes: Periorbital structures: appear normal, Pupils: equal, round, and reactive to light and accomodation, Extraocular movements: intact throughout, Conjunctiva: normal, no exudate, no injection, Sclera: no appreciated abnormality, Lids and lashes: appear normal, bilaterally. 16:58 ENT: External ear(s): are unremarkable, Ear canal(s): are normal, clear, TM's: bulging, is not appreciated, bilaterally, dullness, bilaterally, erythema, is not appreciated, bilaterally, Nose: is normal, Mouth: is normal, Posterior pharynx: is normal, airway is patent, no erythema, no exudate. 16:58 Neck: ROM/movement: is normal, is supple, without pain, no range of motions limitations, no nuchal rigidity. 16:58 Chest/axilla: Inspection: normal, Palpation: is normal, no crepitus, no tenderness. 16:58 Cardiovascular: Rate: normal, Rhythm: regular, Edema: is not appreciated, JVD: is not appreciated. 16:58 Respiratory: the patient does not display signs of respiratory distress, Respirations: normal, no use of accessory muscles, no retractions, no splinting, no tachypnea, labored breathing, is not present, Breath sounds: are clear throughout, no decreased breath sounds, no stridor, no wheezing. 16:58 Abdomen/GI: Inspection: abdomen appears normal, Bowel sounds: active, all quadrants, Palpation: abdomen is soft and non-tender, in all quadrants, rebound tenderness, is not appreciated, involuntary guarding, is not appreciated. 16:58 Back: pain, is absent, ROM is normal. 16:58 Skin: cellulitis, is not appreciated, no rash present. 16:58 Neuro: Orientation: to person, place \T\ time. Mentation: lucid, able to follow commands, Cerebellar function: is grossly normal, Motor: moves all fours, strength is normal, Sensation: no obvious gross deficits. Vital Signs: 13:55 BP 182 / 56; Pulse 73; Resp 18; Temp 99; Pulse Ox 97% ; Pain 0/10; sv 16:46 BP 188 / 66 Supine; Pulse 82; hb 16:50 BP 169 / 68 Sitting; Pulse 84; hb 16:55 BP 173 / 54 Standing; Pulse 86; hb 17:45 BP 168 / 70; Pulse 82; Resp 15; Pulse Ox 100% on R/A; hb 18:29 BP 181 / 70; Pulse 75; Resp 19; Pulse Ox 95% on R/A; hb 19:26 BP 140 / 62; Pulse 69; Resp 18; Pulse Ox 95% on R/A; tl3 MDM: 16:29 Patient medically screened. cp 17:00 Differential diagnosis: DKA, hyperglycemia, UTI, cardiac arrythmia, electrolyte cp abnormality, CVA. 20:25 Data reviewed: vital signs, nurses notes, lab test result(s), EKG, radiologic studies, cp CT scan, plain films. 20:25 Test interpretation: by ED physician or midlevel provider: ECG, plain radiologic cp studies. Counseling: I had a detailed discussion with the patient and/or guardian regarding: the historical points, exam findings, and any diagnostic results supporting the discharge/admit diagnosis, the presence of at least one elevated blood pressure reading (>120/80) during this emergency department visit, lab results, radiology results, the need for outpatient follow up, an rabbler, to return to the emergency department if symptoms worsen or persist or if there are any questions or concerns that arise at home. Response to treatment: the patient's symptoms have markedly improved after treatment, and as a result, I will discharge patient. ED course: VSS. Blood pressure and blood glucose levels improved with IV fluids and meds. Will discharge to home for continued monitoring. 09/29 13:58 Order name: Glucose, Ancillary Testing; Complete Time: 16:42 EDMS 09/29 16:42 Interpretation: GLUC,ANCIL 399; Reviewed. 09/29 16:43 Order name: Urine Microscopic Only; Complete Time: 18:02 09/29 16:55 Order name: Urine Dipstick--Ancillary (enter results) eb 09/29 16:55 Order name: Urine Dipstick-Ancillary; Complete Time: 18:02 EDTN 09/29 17:09 Order name: Basic Metabolic Panel; Complete Time: 19:24 09/29 19:24 Interpretation: Normal except: GLUC 441; BUN 33; CRE 1.80; GFR 27. 09/29 17:09 Order name: CBC with Diff; Complete Time: 19:24 09/29 19:25 Interpretation: Normal except: RBC 3.28; HGB 10.3; HCT 31.2; BASO% 1.4. 09/29 17:09 Order name: Ckmb; Complete Time: 19:24 09/29 17:09 Order name: CPK; Complete Time: 19:24 cp 09/29 17:09 Order name: LFT's; Complete Time: 19:24 09/29 19:25 Interpretation: Normal except: ALK 136; ALB 3.1; GLOB 3.9; A/G 0.8. 09/29 17:09 Order name: Magnesium; Complete Time: 19:24 cp 09/29 17:09 Order name: PT-INR; Complete Time: 19:24 cp 09/29 17:09 Order name: Ptt, Activated; Complete Time: 19:24 09/29 17:09 Order name: Troponin (emerg Dept Use Only); Complete Time: 19:24 cp 09/29 17:09 Order name: Lipase; Complete Time: 19:24 09/29 16:29 Order name: Orthostatics; Complete Time: 16:54 09/29 16:43 Order name: Urine Dipstick-Ancillary (obtain specimen); Complete Time: 16:46 cp 09/29 17:09 Order name: XRAY Chest (1 view); Complete Time: 18:02 cp 09/29 17:09 Order name: EKG; Complete Time: 17:10 cp 09/29 17:09 Order name: Cardiac monitoring; Complete Time: 18:28 cp 09/29 17:09 Order name: EKG - Nurse/Tech; Complete Time: 18:28 cp 09/29 17:09 Order name: IV Saline Lock; Complete Time: 18:28 cp 09/29 17:09 Order name: Labs collected and sent; Complete Time: 18:28 cp 09/29 17:09 Order name: O2 Per Protocol; Complete Time: 17:12 cp 09/29 17:10 Order name: CT Head Brain wo Cont; Complete Time: 18:02 cp 09/29 18:02 Interpretation: Report reviewed. 09/29 18:34 Order name: Glucose, Ancillary Testing; Complete Time: 19:24 EDMS 09/29 17:09 Order name: O2 Sat Monitoring; Complete Time: 17:12 cp Administered Medications: 17:30 Drug: Tylenol 1000 mg Route: PO; hb 19:28 Follow up: Response: No adverse reaction tl3 17:40 Drug: NovoLIN R 10 units {Co-Signature: rv (Tio Momin RN).} Route: Sub-Q; Site: hb left upper arm; 19:40 Follow up: Response: No adverse reaction; Blood sugar is lowered tl3 18:22 Drug: NS 0.9% 1000 ml Route: IV; Rate: 75 ml/hr; Site: right forearm; hb 21:02 Follow up: IV Status: Completed infusion tl3 19:40 Drug: NS 0.9% 500 ml Route: IV; Rate: bolus; Site: left hand; Delivery: Primary tubing; tl3 20:03 Follow up: IV Status: Completed infusion; IV Intake: 500ml tl3 19:41 Drug: cloNIDine 0.1 mg Route: PO; tl3 20:03 Follow up: Response: No adverse reaction tl3 Point of Care Testing: Blood Glucose: 13:55 Blood Glucose: 399 mg/dL; sv 20:03 Blood Glucose: 270 mg/dL; tl3 Ranges: Critical Glucose Levels:Adult <50 mg/dl or >400 mg/dl <40 mg/dl or >180 mg/dl Disposition: 09/29/17 20:28 Discharged to Home. Impression: Other specified diabetes mellitus with hyperglycemia, Dizziness and giddiness, Headache. - Condition is Stable. - Discharge Instructions: Dizziness, General Headache Without Cause, Hyperglycemia. - Medication Reconciliation Form, Thank You Letter, Antibiotic Education, Prescription Opioid Use form. - Follow up: Noman Laura DO; When: 1 - 2 days; Reason: Recheck today's complaints. - Problem is new. - Symptoms have improved. Addendum: 10/01/2017 11:29 Co-signature as Attending Physician, Tayo Mccallum MD I agree with the assessment and w a plan of care. Signatures: Dispatcher [employer] EDIsa Reid RN RN Cristóbal Nelson PA PA cp Baxter, Heather, RN RN Tayo Mccallum MD MD wa Lowrey, Tammy, MARANDA RN tl3 Tio Momin RN rv Corrections: (The following items were deleted from the chart) 09/29 21:01 20:28 09/29/2017 20:28 Discharged to Home. Impression: Other specified diabetes tl3 mellitus with hyperglycemia; Dizziness and giddiness; Headache. Condition is Stable. Forms are Medication Reconciliation Form, Thank You Letter, Antibiotic Education, Prescription Opioid Use. Follow up: Noman Laura; When: 1 - 2 days; Reason: Recheck today's complaints. Problem is new. Symptoms have improved. cp
--- NOTE | 2017-09-29 20:28 | ER ---
Nurse's Notes [facility] Name: Sarah Garcia Age: 76 yrs Sex: Female : 1940 Arrival Date: 09/29/2017 Time: 13:49 Bed 30 Private MD: Noman aLura Diagnosis: Other specified diabetes mellitus with hyperglycemia;Dizziness and giddiness;Headache Presentation: 09/29 13:53 Presenting complaint: Patient states: [facility] came to house and checked BS and it was sv 572. c/o dizziness. Transition of care: patient was not received from another setting of care. Onset of symptoms was September 29, 2017. Care prior to arrival: None. 13:53 Method Of Arrival: Wheelchair sv 13:53 Acuity: CHRISS 3 sv 21:01 Risk Assessment: Do you want to hurt yourself or someone else? Patient reports no tl3 desire to harm self or others. Initial Sepsis Screen: Does the patient meet any 2 criteria? No. Patient's initial sepsis screen is negative. Does the patient have a suspected source of infection? No. Patient's initial sepsis screen is negative. Historical: - Allergies: 13:55 QUINOLONES; sv - Home Meds: 13:55 anastrozole 1 mg Oral tab 1 tab once daily [Active]; aspirin 81 mg Oral chew 1 tab once sv daily [Active]; atorvastatin 40 mg Oral tab 1 tab once daily [Active]; BREAST CANCER PILL AND RADIATION [Active]; citalopram 20 mg tab 1 tab once daily [Active]; chlorthalidone 25 mg Oral tab 1 tab once daily [Active]; Coumadin 2.5 mg Oral tab 1 tab once daily [Active]; ferrous sulfate 325 mg (65 mg iron) Oral tab [Active]; losartan 100 mg Oral tab 1 tab once daily [Active]; Lyrica Oral 1 cap [Active]; meclizine 25 mg Oral chew 1 tab once daily [Active]; miconazole nitrate 1,200-2 mg-% Vaginal kit 2 times per day [Active]; [place] 5-325 mg Oral tab 1 tab as needed for Pain [Active]; pantoprazole 40 mg Oral TbEC 1 tab once daily [Active]; tramadol 50 mg Oral tab 1 tab daily [Active]; TRESIBA FLEXTOUCH U-100, 40 UINTIS [Active]; Vitamin D Oral [Active]; - PMHx: 13:55 Atrial Fib; Diabetes - IDDM; GERD; High Cholesterol; Hypertension; Myocardial sv infarction; - Immunization history:: Adult Immunizations up to date. - Ebola Screening: : No symptoms or risks identified at this time. - Social history:: Smoking status: Patient/guardian denies using tobacco. Screenin:54 Abuse screen: Denies threats or abuse. Denies injuries from another. Nutritional hb screening: No deficits noted. Tuberculosis screening: No symptoms or risk factors identified. Fall Risk Total Lutz Fall Scale indicates Low Risk Score (25-44 pts). Fall prevention measures have been instituted. Side Rails Up X 2 Frequent Obs/Assesments occuring Family Present and informed to notify staff if they need to leave bedside As available Patient and Family Educated on Fall Prevention Program and strategies. Assessment: 16:55 General: Appears in no apparent distress. Behavior is calm, cooperative. Pain: Denies hb pain. Neuro: Level of Consciousness is awake, alert, obeys commands, Oriented to person, place, time, situation, Reports dizziness, since 1 week. Cardiovascular: Heart tones S1 S2 present Capillary refill < 3 seconds Patient's skin is warm and dry. Respiratory: Airway is patent Trachea midline Respiratory effort is even, unlabored, Respiratory pattern is regular, symmetrical, Breath sounds are clear bilaterally. GI: No signs and/or symptoms were reported involving the gastrointestinal system. : No signs and/or symptoms were reported regarding the genitourinary system. EENT: No signs and/or symptoms were reported regarding the EENT system. Derm: No signs and/or symptoms reported regarding the dermatologic system. Skin is intact, is healthy with good turgor. Musculoskeletal: No signs and/or symptoms reported regarding the musculoskeletal system. 17:45 Reassessment: Patient appears in no apparent distress at this time. No changes from previously documented assessment. Patient and/or family updated on plan of care and expected duration. Pain level reassessed. Patient is alert, oriented x 3, equal unlabored respirations, skin warm/dry/pink. 18:28 Reassessment: Patient appears in no apparent distress at this time. Patient and/or hb family updated on plan of care and expected duration. Pain level reassessed. Patient is alert, oriented x 3, equal unlabored respirations, skin warm/dry/pink. 19:26 Reassessment: Patient and/or family updated on plan of care and expected duration. Pain tl3 level reassessed. introduced myself to pt and family, provided warm blankets, pt C/O stomach cramping-provider informed and new orders received. 20:59 Reassessment: Patient appears in no apparent distress at this time. No changes from tl3 previously documented assessment. Patient and/or family updated on plan of care and expected duration. Pain level reassessed. Patient is alert, oriented x 3, equal unlabored respirations, skin warm/dry/pink. Vital Signs: 13:55 BP 182 / 56; Pulse 73; Resp 18; Temp 99; Pulse Ox 97% ; Pain 0/10; sv 16:46 BP 188 / 66 Supine; Pulse 82; hb 16:50 BP 169 / 68 Sitting; Pulse 84; hb 16:55 BP 173 / 54 Standing; Pulse 86; hb 17:45 BP 168 / 70; Pulse 82; Resp 15; Pulse Ox 100% on R/A; hb 18:29 BP 181 / 70; Pulse 75; Resp 19; Pulse Ox 95% on R/A; hb 19:26 BP 140 / 62; Pulse 69; Resp 18; Pulse Ox 95% on R/A; tl3 ED Course: 13:49 Patient arrived in ED. sb2 13:50 Noman Laura DO is Private Physician. sb2 13:53 Triage completed. sv 13:55 Arm band placed on right wrist. Patient placed in waiting room, Patient notified of sv wait time. 16:28 Cristóbal Omalley PA is PHCP. cp 16:28 Tayo Mccallum MD is Attending Physician. cp 16:46 Martha Villanueva, MARANDA is Primary Nurse. hb 16:55 Patient has correct armband on for positive identification. Placed in gown. Bed in low hb position. Call light in reach. Side rails up X2. 17:12 Urine Dipstick--Ancillary (enter results) Sent. hb 17:21 CT Head Brain wo Cont In Process Unspecified. EDMS 17:22 CT completed. Patient tolerated procedure well. Patient moved to radiology. bq 17:26 X-ray completed. Patient tolerated procedure well. kw 17:27 XRAY Chest (1 view) In Process Unspecified. EDMS 18:00 Missed attempt(s): 24 gauge in left forearm. x3. Bleeding controlled, band aid applied, hb catheter tip intact. 18:10 Missed attempt(s): 22 gauge in left forearm. Bleeding controlled, band aid applied, sg catheter tip intact. 18:21 Inserted saline lock: 24 gauge in left wrist, using aseptic technique. sg 20:27 Noman Laura DO is Referral Physician. cp 20:59 No provider procedures requiring assistance completed. IV discontinued, intact, tl3 bleeding controlled, No redness/swelling at site. Pressure dressing applied. Administered Medications: 17:30 Drug: Tylenol 1000 mg Route: PO; hb 19:28 Follow up: Response: No adverse reaction tl3 17:40 Drug: NovoLIN R 10 units {Co-Signature: rv (Tio Momin RN).} Route: Sub-Q; Site: hb left upper arm; 19:40 Follow up: Response: No adverse reaction; Blood sugar is lowered tl3 18:22 Drug: NS 0.9% 1000 ml Route: IV; Rate: 75 ml/hr; Site: right forearm; hb 21:02 Follow up: IV Status: Completed infusion tl3 19:40 Drug: NS 0.9% 500 ml Route: IV; Rate: bolus; Site: left hand; Delivery: Primary tubing; tl3 20:03 Follow up: IV Status: Completed infusion; IV Intake: 500ml tl3 19:41 Drug: cloNIDine 0.1 mg Route: PO; tl3 20:03 Follow up: Response: No adverse reaction tl3 Point of Care Testing: Blood Glucose: 13:55 Blood Glucose: 399 mg/dL; sv 20:03 Blood Glucose: 270 mg/dL; tl3 Ranges: Intake: 20:03 IV: 500ml; Total: 500ml. tl3 Outcome: 20:28 Discharge ordered by MD. cp 20:59 Discharged to home ambulatory. tl3 20:59 Discharged to home via wheelchair. 20:59 Condition: stable 20:59 Discharge instructions given to patient, Instructed on discharge instructions, follow up and referral plans. medication usage, Demonstrated understanding of instructions, follow-up care, medications. 21:01 Patient left the ED. tl3 Signatures: Dispatcher MedHoIsa Tim RN RN sv Gay, Steven, RN RN sg Quilty, Betty bq Whitley, Kimberlee kw Page, Corey, PA PA cp Martha Villanueva, RN RN hb Minoo Barajas sb2 Lana Nelson, MARANDA RN tl3 Tio Momin RN rv Corrections: (The following items were deleted from the chart) 18:30 18:15 BP 168 / 70; Pulse 82bpm; Resp 15bpm; Pulse Ox 100% RA; hb hb 18:32 18:21 Inserted saline lock: 24 gauge in left forearm, using aseptic technique. hb sg
[2017-09-29 21:05] VITALS: TEMP 99
[2017-09-29 21:11] VITALS: O2SAT 95
[2017-09-29 21:12] VITALS: BP 140/62
--- NOTE | 2017-09-30 06:30 | EKG ---
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
== END 2017-09-29 21:01 | disposition home or self-care (01) ==
LOC: ER 13:47
DX: E11.65 Type 2 diabetes mellitus with hyperglycemia (principal); R42 Dizziness and giddiness; R51 Headache; I48.91 Unspecified atrial fibrillation; K21.9 Gastro-esophageal reflux disease without esophagitis; E78.00 Pure hypercholesterolemia, unspecified; I10 Essential (primary) hypertension; I25.2 Old myocardial infarction; Z79.01 Long term (current) use of anticoagulants; Z79.82 Long term (current) use of aspirin; Z79.84 Long term (current) use of oral hypoglycemic drugs; C50.919 Malignant neoplasm of unspecified site of unspecified female breast
CPT/HCPCS: 36415; 70450; 71045; 80048; 80076; 82550; 82553; 82962 ×3; 83690; 83735; 84484; 85025; 85610; 85730; 93005; 96360; 96361; 96372; 99284; J7030; 81003; 81015

== ENCOUNTER 2017-10-19 18:20 | Emergency (ER) | payer OTHER ==
--- OUTSIDE RECORDS SUMMARY | 2017-10-19 18:22 | XMS REPORT ---
[...] Status Dosage System Date Date FreeStyle Lite [facility] 98647180297 0 Active CHECK Test BLOOD SUGAR TWICE DAILY Lipitor [facility] 53220843627 40 MG Active 1 TAB(S) ONCE A DAY ORALLY Losartan [facility] 02819235599 100 MG Orally Active 1 tablet Potassium Once a day Meclizine HCl [facility] 13845569910 25 Active CHEW AND SWALLOW 1 TABLET THREE TIMES DAILY Flonase Allergy [facility] 34080520853 50 MCG/ACT Active 1 spray in Relief Nasally Once a each day nostril Ferrous Sulfate [facility] 93424052076 325 (65 Fe) MG Active 1 tablet Orally Once a day Tresiba FlexTouch [facility] 64680336821 200 UNIT/ML Active 70 UNITS Subcutaneous DAILY Increase 2 untis after 3 day if BS are high Citalopram [facility] 01065828193 20 MG Orally Active 1 tablet Hydrobromide Once a day Chlorthalidone [facility] 05357442874 25 MG Orally Active 1 tablet Once a day in the morning with food Tresiba FlexTouch [facility] 11462892261 200 UNIT/ML Active not Subcutaneous defined Anastrozole [facility] 97456185114 1 MG Orally Active 1 tablet Once a day Topamax [facility] 34856596209 50 MG Orally Active 1 tablet Once a day Protonix [facility] 01266242933 40 MG Active 1 TAB(S) ONCE A DAY ORALLY Lipitor [facility] 37615192614 40 MG Orally Active 1 tablet Once a day Coumadin [facility] 91354300283 2 MG Orally Active 1 tablet Once a day BD Pen Needle [facility] 70533472616 0 Active USE DAILY Short U/F Citalopram [facility] 79670653539 20 Active TAKE 1 Hydrobromide TABLET BY MOUTH EVERY DAY Protonix [facility] 13900848882 40 MG Orally Active 1 tablet Once a day Results No Known Results Summary Purpose eClinicalWorks Submission
--- OUTSIDE RECORDS SUMMARY | 2017-10-19 18:22 | XMS REPORT ---
:1940 Author Organization eClinicalWorks Care Team Providers Name Role Phone Valentín [facility] Provider Role Unavailable Allergies No Known [...] Start End Date Status Dosage System Date [facility] 39861119589 200 UNIT/ML Active 70 UNITS FlexTouch Subcutaneous DAILY Increase 2 untis after 3 day if BS are high Results No Known Results Summary Purpose eClinicalWorks Submission
--- OUTSIDE RECORDS SUMMARY | 2017-10-19 18:22 | XMS REPORT ---
:1940 Author Organization eClinicalWorks Care Team Providers Name Role Phone Laura, [facility] Provider Role Unavailable Allergies, Adverse [...] End Status Dosage System Date Date Citalopram [facility] 87955895577 20 MG Orally Active 1 tablet Hydrobromide Once a day Coumadin ND 16252842710 2 MG Orally Active 1 tablet Once a day Lipitor ND 48196107925 40 MG Active 1 TAB(S) ONCE A DAY ORALLY Meclizine HCl ND 10852825467 25 MG Orally Active 1 tablet Three times a day Ferrous Sulfate ND 14756882960 325 (65 Fe) MG May Active 1 tablet Orally Once a 2017 day Tresiba FlexTouch ND 55401395508 200 UNIT/ML Active not Subcutaneous defined Chlorthalidone ND 54733055535 25 MG Orally Active 1 tablet Once a day in the morning with food FreeStyle Lite [facility] 67834980909 0 Active CHECK Test BLOOD SUGAR TWICE DAILY Flonase Allergy [facility] 58070673394 50 MCG/ACT Active 1 spray in Relief Nasally Once a each day nostril Meclizine HCl [facility] 78203384605 25 Active CHEW AND SWALLOW 1 TABLET THREE TIMES DAILY Anastrozole [facility] 79342151928 1 MG Orally Active 1 tablet Once a day Protonix [facility] 56747273877 40 MG Active 1 TAB(S) ONCE A DAY ORALLY Losartan [facility] 52962468822 100 MG Orally Active 1 tablet Potassium Once a day Topamax [facility] 85303336710 50 MG Orally Active 1 tablet Once a day Protonix [facility] 66951026599 40 MG Orally Active 1 tablet Once a day Tresiba FlexTouch [facility] 97832577415 200 UNIT/ML Active 40 UNITS DAILY Results No Known Results Summary Purpose eClinicalWorks Submission
--- OUTSIDE RECORDS SUMMARY | 2017-10-19 18:23 | XMS REPORT ---
:1940 Author Organization eClinicalWorks Care Team Providers Name Role Phone Valentín Noman Provider Role Unavailable Allergies No Known Allergies Problems Problem Type Condition Code Onset Dates Condition Status Assessment Carotid artery occlusion I65.29 Active Assessment Chronic kidney disease, stage 3 N18.3 Active Assessment Chronic atrial fibrillation I48.2 Active Assessment Anticoagulated Z79.01 Active Assessment GERD (gastroesophageal reflux K21.9 Active disease) Assessment Carcinoma of right female breast, C50.911 Active unspecified estrogen receptor status, unspecified site of breast Assessment Hyperlipidemia E78.5 Active Assessment Benign essential HTN I10 Active Assessment Hospital discharge follow-up Z09 Active Problem Gout M10.9 Active Assessment Diabetes [...] Diabetes type 2, uncontrolled E11.65 Active Assessment Osteoporosis M81.0 Active Problem Allergic rhinitis, seasonal J30.2 Active Assessment Depression with anxiety F41.8 Active Problem Depression with anxiety F41.8 Active Assessment Leg weakness, bilateral R29.898 Active Problem Chronic kidney disease, stage 3 N18.3 Active Assessment At risk for falling Z91.81 Active Problem Chronic atrial fibrillation I48.2 Active Problem Iron deficiency anemia D50.9 Active Assessment Peripheral vascular disease I73.9 Active Problem Breast cancer C50.919 Active Problem Bladder incontinence R32 Active Problem Anticoagulated Z79.01 Active Medications Medication Code Code Instructions Start End Status Dosage System Date Date Anastrozole [facility] 42491557132 1 MG Orally Active 1 tablet Once a day Lipitor [facility] 57465851036 40 MG Orally Active 1 tablet Once a day Protonix [facility] 09147033880 40 MG Orally Active 1 tablet Once a day Topamax [facility] 36414945409 50 MG Orally Active 1 tablet Once a day Ferrous Sulfate [facility] 53241255707 325 (65 Fe) MG Active 1 tablet Orally Once a day Lipitor [facility] 69427128881 40 Active 1 TAB(S) ONCE A DAY ORALLY Tresiba FlexTouch [facility] 26299532194 200 UNIT/ML Active 70 UNITS Subcutaneous DAILY Increase 2 untis after 3 day if BS are high HydrALAZINE HCl [facility] 11708279804 25 MG Orally Active 1 tablet Two times a day with food Tresiba FlexTouch [facility] 54080782381 200 UNIT/ML Active not Subcutaneous defined Tresiba FlexTouch [facility] 99729079426 200 UNIT/ML Active INJECT 70 UNITS UNDER THE SKIN EVERY DAY INCREASE 2 UNITS AFTER 3 DAYS IF BLOOD SUGAR IS HIGH FreeStyle Lite [facility] 04903425818 0 Active CHECK Test BLOOD SUGAR TWICE DAILY Losartan [facility] 48653485175 100 MG Orally Inactive 1 tablet Potassium Once a day Pantoprazole [facility] 52080617665 40 Active TAKE 1 Sodium TABLET BY MOUTH EVERY DAY Citalopram [facility] 52601162887 20 Active TAKE 1 Hydrobromide TABLET BY MOUTH EVERY DAY Meclizine HCl [facility] 86352939844 25 Active CHEW AND SWALLOW 1 TABLET THREE TIMES DAILY Citalopram [facility] 99801414064 20 MG Orally Active 1 tablet Hydrobromide Once a day Coumadin [facility] 32966115232 2 MG Orally Active 1 tablet Once a day Lipitor [facility] 21496296311 40 MG Active 1 TAB(S) ONCE A DAY ORALLY Chlorthalidone [facility] 77077394925 25 MG Orally Inactive 1 tablet Once a day in the morning with food Flonase Allergy [facility] 09993939500 50 MCG/ACT Active 1 spray in Relief Nasally Once a each day nostril Protonix [facility] 29716732977 40 MG Active 1 TAB(S) ONCE A DAY ORALLY BD Pen Needle [facility] 75503472955 0 Active USE DAILY Short U/F Results No Known Results Summary Purpose eClinicalWorks Submission
--- OUTSIDE RECORDS SUMMARY | 2017-10-19 18:23 | XMS REPORT ---
:1940 Author Organization eClinicalWorks Care Team Providers Name Role Phone Valentín [facility] Provider Role Unavailable Allergies No Known [...] Start End Date Status Dosage System Date [facility] [id number] - Oct 11, Active as directed Lancets 2018 Results No Known Results Summary Purpose eClinicalCardSpring Submission
[2017-10-19 19:55] LABS: Absolute Lymphocytes (CBC) 1.5 K/uL (0.7-4.9); Absolute Monocytes 0.5 K/uL (0.1-1.3); Absolute Neutrophil 5.2 K/uL (1.8-8.0); Basophils % 1.2 % (0-1.3); Eosinophils % 3.9 % (0-4.4); Hematocrit 30.5 % (36.0-45.0); Lymphocytes % 20.4 % (15.3-44.8); MCH 31.6 pg (27.0-35.0); MCV 97.1 fL (80-100); MPV 9.7 fL (7.6-11.3); Monocytes % 6.2 % (3.3-12.3); RBC Red Blood Cell Count 3.14 M/uL (3.86-4.86)
[2017-10-19] MEDS ORDERED: NA CHLORIDE 0.9% 1,000 ML ONE (19:57)
[2017-10-19 19:59] LABS: Protime INR 1.58
--- NOTE | 2017-10-19 20:21 | RAD REPORT ---
EXAM DESCRIPTION: CT - Stone Protocol - 10/19/2017 7:53 pm CLINICAL HISTORY: Abdominal pain. Flank pain COMPARISON: September 2017 TECHNIQUE: Computed axial tomography of the abdomen pelvis was obtained without oral or IV contrast. Lack of IV and oral contrast limits evaluation of solid organs, bowel, and vessels. Coronal reformat franca images were obtained and reviewed. All CT scans are performed using dose optimization technique as appropriate and may include automated exposure control or mA/KV adjustment according to patient size. FINDINGS: A renal arterial calcifications are present. A renal calculus is not seen. An ureteral daniel culus is not noted. A bladder calculus is not present. Hydronephrosis is not noted. Right renal corti daniel thinning probably is secondary to prior inflammation. The liver, spleen, pancreas and adrenals appear grossly normal There is no evidence of diverticulitis. An adnexal mass is not seen. Spondylosis involves lumbar spine resulting in spinal stenosis IMPRESSION: Negative for a genitourinary calculus
--- NOTE | 2017-10-19 20:24 | RAD REPORT ---
EXAM DESCRIPTION: Kya Single View10/19/2017 8:05 pm CLINICAL HISTORY: Cough COMPARISON: September 2017 FINDINGS: Mild bilateral interstitial opacities have the appearance of pulmonary fibrosis. The lungs appear clear of acute infiltrate. The heart is mildly enlarged IMPRESSION: No acute abnormalities displayed
[2017-10-19 20:25] LABS: ALT/SGPT 16 U/L (12-78); AST/SGOT 13 U/L (15-37); Alkaline Phosphatase 174 U/L (45-117); BUN Blood Urea Nitrogen 55 mg/dL (7-18); Bicarbonate 23 mmol/L (21-32); Bilirubin Direct 0.1 mg/dL (0-0.2); Bilirubin Total 0.3 mg/dL (0.2-1.0); Creatine Phosphokinase 90 U/L (26-192); Glucose Level 370 mg/dL (74-106); Lipase 331 U/L (73-393); Magnesium 1.8 mg/dL (1.8-2.4); NT PRO-BNP 1694 pg/mL (<450); Potassium 5.3 mmol/L (3.5-5.1); Protein, Total 6.8 g/dL (6.4-8.2); Sodium Level 139 mmol/L (136-145); Troponin (Emerg Dept Use Only) < 0.02 ng/mL (0.0-0.045)
[2017-10-19 21:16] LABS: Urine Blood NEGATIVE (NEG); Urine Glucose 2+ (NEG); Urine Protein 1+ (NEG); Urine Specific Gravity 1.015 (1.005-1.030)
--- NOTE | 2017-10-19 21:20 | EDPHYS ---
Physician Documentation [facility] Name: Sarah Garcia Age: 76 yrs Sex: Female : 1940 Arrival Date: 10/19/2017 Time: 18:22 Bed 4 Private MD: Valentín [facility] ED Physician Cristóbal Waldron HPI: 10/19 19:47 This 76 yrs old Female presents to ER via Wheelchair with complaints of snw Abnormal Lab Results. 19:47 Pt had outpatient labs drawn today - elevated potassium resulted. Pt directed to ED. snw Onset: The symptoms/episode began/occurred suddenly. Severity of symptoms: At their worst the symptoms were very mild. It is unknown whether or not the patient has had similar symptoms in the past. The patient has not recently seen a physician, the patient's primary care provider is Dr. Dr. Laura, a family practitioner, Historical: - Allergies: 18:27 QUINOLONES; aj - Home Meds: 18:27 anastrozole 1 mg Oral tab 1 tab once daily [Active]; aspirin 81 mg Oral chew 1 tab once aj daily [Active]; atorvastatin 40 mg Oral tab 1 tab once daily [Active]; BREAST CANCER PILL AND RADIATION [Active]; chlorthalidone 25 mg Oral tab 1 tab once daily [Active]; citalopram 20 mg tab 1 tab once daily [Active]; Coumadin 2.5 mg Oral tab 1 tab once daily [Active]; ferrous sulfate 325 mg (65 mg iron) Oral tab [Active]; losartan 100 mg Oral tab 1 tab once daily [Active]; Lyrica Oral 1 cap [Active]; meclizine 25 mg Oral chew 1 tab once daily [Active]; miconazole nitrate 1,200-2 mg-% Vaginal kit 2 times per day [Active]; [place] 5-325 mg Oral tab 1 tab as needed for Pain [Active]; pantoprazole 40 mg Oral TbEC 1 tab once daily [Active]; tramadol 50 mg Oral tab 1 tab daily [Active]; TRESIBA FLEXTOUCH U-100, 40 UINTIS [Active]; Vitamin D Oral [Active]; - PMHx: 18:27 Atrial Fib; Diabetes - IDDM; GERD; High Cholesterol; Hypertension; Myocardial aj infarction; - Immunization history:: Adult Immunizations up to date. - Social history:: Smoking status: Patient/guardian denies using tobacco. - Ebola Screening: : Patient negative for fever greater than or equal to 101.5 degrees Fahrenheit, and additional compatible Ebola Virus Disease symptoms Patient denies exposure to infectious person Patient denies travel to an Ebola-affected area in the 21 days before illness onset No symptoms or risks identified at this time. ROS: 19:47 Constitutional: Negative for fever, chills, and weight loss, Eyes: Negative for injury, snw pain, redness, and discharge, ENT: Negative for injury, pain, and discharge, Neck: Negative for injury, pain, and swelling, Cardiovascular: Negative for chest pain, palpitations, and edema, Respiratory: Negative for shortness of breath, cough, wheezing, and pleuritic chest pain, Abdomen/GI: Negative for abdominal pain, nausea, vomiting, diarrhea, and constipation, Back: Negative for injury and pain, : Negative for injury, bleeding, discharge, and swelling, MS/Extremity: Negative for injury and deformity, Skin: Negative for injury, rash, and discoloration, Neuro: Negative for headache, weakness, numbness, tingling, and seizure, Psych: Negative for depression, anxiety, suicide ideation, homicidal ideation, and hallucinations. Exam: 19:43 Constitutional: This is a well developed, well nourished patient who is awake, alert, snw and in no acute distress. Head/Face: Normocephalic, atraumatic. Eyes: Pupils equal round and reactive to light, extra-ocular motions intact. Lids and lashes normal. Conjunctiva and sclera are non-icteric and not injected. Cornea within normal limits. Periorbital areas with no swelling, redness, or edema. ENT: Nares patent. No nasal discharge, no septal abnormalities noted. Tympanic membranes are normal and external auditory canals are clear. Oropharynx with no redness, swelling, or masses, exudates, or evidence of obstruction, uvula midline. Mucous membranes moist. Neck: Trachea midline, no thyromegaly or masses palpated, and no cervical lymphadenopathy. Supple, full range of motion without nuchal rigidity, or vertebral point tenderness. No Meningismus. Chest/axilla: Normal chest wall appearance and motion. Nontender with no deformity. No lesions are appreciated. Cardiovascular: Regular rate and rhythm with a normal S1 and S2. No gallops, murmurs, or rubs. Normal PMI, no JVD. No pulse deficits. + edema Respiratory: Lungs have equal breath sounds bilaterally, clear to auscultation and percussion. No rales, rhonchi or wheezes noted. No increased work of breathing, no retractions or nasal flaring. Abdomen/GI: Soft, non-tender, with normal bowel sounds. No distension or tympany. No guarding or rebound. No evidence of tenderness throughout. Back: No spinal tenderness. No costovertebral tenderness. Full range of motion. Skin: Warm, dry with normal turgor. Normal color with no rashes, no lesions, and no evidence of cellulitis. Neuro: Awake and alert, GCS 15, oriented to person, place, time, and situation. Cranial nerves II-XII grossly intact. Motor strength 5/5 in all extremities. Sensory grossly intact. Cerebellar exam normal. Normal gait. 19:43 Musculoskeletal/extremity: ROM: no acute changes, Circulation is intact in all extremities. Sensation intact. Vital Signs: 18:27 BP 176 / 47; Pulse 79; Resp 19; Temp 98.4; Pulse Ox 92% on R/A; Weight 83.46 kg; Height aj 5 ft. 1 in. (154.94 cm); 20:00 BP 172 / 53; Pulse 86; Resp 14; Pulse Ox 93% on R/A; bp 21:56 BP 169 / 41; Pulse 76; Resp 14; Pulse Ox 96% ; bp 18:27 Body Mass Index 34.77 (83.46 kg, 154.94 cm) aj MDM: 18:57 Patient medically screened. susie 21:16 Data reviewed: vital signs, nurses notes. Data interpreted: Pulse oximetry: on room air snw is 93 %. Interpretation: acceptable, Plan: will initiate a nebulizer treatment. Counseling: I had a detailed discussion with the patient and/or guardian regarding: the historical points, exam findings, and any diagnostic results supporting the discharge/admit diagnosis, the presence of at least one elevated blood pressure reading (>120/80) during this emergency department visit, lab results, radiology results, the need for outpatient follow up, to return to the emergency department if symptoms worsen or persist or if there are any questions or concerns that arise at home. Special discussion: Based on the history and exam findings, there is no indication for further emergent testing or inpatient evaluation. I discussed with the patient/guardian the need to see the primary care provider for further evaluation of the symptoms. discussed plan of care and discharge with Dr. Juarez. 10/19 18:57 Order name: Basic Metabolic Panel; Complete Time: 20:32 susie 10/19 18:57 Order name: CBC with Diff; Complete Time: 20:23 susie 10/19 18:57 Order name: Ckmb; Complete Time: 20:32 susie 10/19 18:57 Order name: CPK; Complete Time: 20:32 susie 10/19 18:57 Order name: LFT's; Complete Time: 20:32 10/19 18:57 Order name: Magnesium; Complete Time: 20:32 10/19 18:57 Order name: NT PRO-BNP; Complete Time: 20:32 [facility] 10/19 18:57 Order name: PT-INR; Complete Time: 20:23 susie 10/19 18:57 Order name: Ptt, Activated; Complete Time: 20:23 susie 10/19 18:57 Order name: Troponin (emerg Dept Use Only); Complete Time: 20:32 susie 10/19 18:57 Order name: XRAY Chest (1 view); Complete Time: 20:32 10/19 18:57 Order name: Urine Culture 10/19 18:57 Order name: Lipase; Complete Time: 20:32 [facility] 10/19 20:25 Order name: Urine Dipstick--Ancillary (enter results); Complete Time: 21:20 pa 10/19 18:57 Order name: EKG; Complete Time: 18:58 susie 10/19 18:57 Order name: Cardiac monitoring; Complete Time: 19:16 [facility] 10/19 18:57 Order name: EKG - Nurse/Tech; Complete Time: 19:07 susie 10/19 18:57 Order name: IV Saline Lock; Complete Time: 20:02 susie 10/19 18:57 Order name: Labs collected and sent; Complete Time: 20:02 susie 10/19 18:57 Order name: O2 Per Protocol; Complete Time: 19:16 susie 10/19 18:57 Order name: O2 Sat Monitoring; Complete Time: 19:16 10/19 18:57 Order name: Urine Dipstick-Ancillary (obtain specimen); Complete Time: 20:21 susie 10/19 18:57 Order name: CT Stone Protocol; Complete Time: 20:23 susie Administered Medications: 20:03 Drug: NS 0.9% 1000 ml Route: IV; Rate: 75 ml/hr; Site: left forearm; bp 21:58 Follow up: IV Status: Completed infusion; IV Intake: 150ml bp 21:00 Drug: Lasix 20 mg Route: IVP; Site: left forearm; bp 21:37 Follow up: Response: No adverse reaction bp 21:00 Drug: Albuterol 2.5 mg Route: Inhalation; bp Disposition: 10/19/17 21:19 Discharged to Home. Impression: Hyperkalemia - 5.3, Fluid overload. - Condition is Stable. - Discharge Instructions: Hyperkalemia, Heart Failure, Lssq-[id number], Peripheral Edema. - Medication Reconciliation Form, Thank You Letter, Antibiotic Education, Prescription Opioid Use form. - Follow up: Noman Laura DO; When: 2 - 3 days; Reason: Recheck today's complaints, Continuance of care, Re-evaluation by your physician. Follow up: Emergency Department; When: As needed; Reason: Worsening of condition. - Problem is an acute exacerbation. - Symptoms are unchanged. - Notes: Pt has Lasix at home that she takes prn. Addendum: 10/22/2017 07:21 Co-signature as Attending Physician, Cristóbal Waldron MD I agree with the assessment and c ron plan of care. Signatures: Dispatcher [employer] EDRita Mcadams, Cristóbal Prakash RN, MD MD cha Therrien, Shelly, BOILER TESTER-C BOILER TESTER-Csnw Rod Mandujano, RN RN bp Corrections: (The following items were deleted from the chart) 10/19 22:19 21:19 10/19/2017 21:19 Discharged to Home. Impression: Hyperkalemia - 5.3; Fluid bp overload. Condition is Stable. Forms are Medication Reconciliation Form, Thank You Letter, Antibiotic Education, Prescription Opioid Use. Follow up: Noman Laura; When: 2 - 3 days; Reason: Recheck today's complaints, Continuance of care, Re-evaluation by your physician. Follow up: Emergency Department; When: As needed; Reason: Worsening of condition. Problem is an acute exacerbation. Symptoms are unchanged. snw
--- NOTE | 2017-10-19 21:20 | ER ---
Nurse's Notes [facility] Name: Sarah Garcia Age: 76 yrs Sex: Female : 1940 Arrival Date: 10/19/2017 Time: 18:22 Bed 4 Private MD: Noman Laura Diagnosis: Hyperkalemia-5.3;Fluid overload Presentation: 10/19 18:25 Presenting complaint: Patient states: Instructed to come to ER by home health for aj abnormal K+ and kidney function. Transition of care: patient was not received from another setting of care. Onset of symptoms was October 19, 2017. Risk Assessment: Do you want to hurt yourself or someone else? Patient reports no desire to harm self or others. Initial Sepsis Screen: Does the patient meet any 2 criteria? No. Patient's initial sepsis screen is negative. Does the patient have a suspected source of infection? No. Patient's initial sepsis screen is negative. Care prior to arrival: None. 18:25 Method Of Arrival: Wheelchair aj 18:25 Acuity: CHRISS 2 aj Triage Assessment: 18:27 General: Appears in no apparent distress. comfortable, Behavior is calm, cooperative, aj appropriate for age. Pain: Denies pain. Neuro: Level of Consciousness is awake, alert, obeys commands, Oriented to person, place, time, situation, Appropriate for age. Respiratory: Airway is patent Respiratory effort is even, unlabored, Respiratory pattern is regular, symmetrical. Derm: Skin is intact, is healthy with good turgor, Skin is pink, warm \T\ dry. normal. Historical: - Allergies: 18:27 QUINOLONES; aj - Home Meds: 18:27 anastrozole 1 mg Oral tab 1 tab once daily [Active]; aspirin 81 mg Oral chew 1 tab once aj daily [Active]; atorvastatin 40 mg Oral tab 1 tab once daily [Active]; BREAST CANCER PILL AND RADIATION [Active]; chlorthalidone 25 mg Oral tab 1 tab once daily [Active]; citalopram 20 mg tab 1 tab once daily [Active]; Coumadin 2.5 mg Oral tab 1 tab once daily [Active]; ferrous sulfate 325 mg (65 mg iron) Oral tab [Active]; losartan 100 mg Oral tab 1 tab once daily [Active]; Lyrica Oral 1 cap [Active]; meclizine 25 mg Oral chew 1 tab once daily [Active]; miconazole nitrate 1,200-2 mg-% Vaginal kit 2 times per day [Active]; [place] 5-325 mg Oral tab 1 tab as needed for Pain [Active]; pantoprazole 40 mg Oral TbEC 1 tab once daily [Active]; tramadol 50 mg Oral tab 1 tab daily [Active]; TRESIBA FLEXTOUCH U-100, 40 UINTIS [Active]; Vitamin D Oral [Active]; - PMHx: 18:27 Atrial Fib; Diabetes - IDDM; GERD; High Cholesterol; Hypertension; Myocardial aj infarction; - Immunization history:: Adult Immunizations up to date. - Social history:: Smoking status: Patient/guardian denies using tobacco. - Ebola Screening: : Patient negative for fever greater than or equal to 101.5 degrees Fahrenheit, and additional compatible Ebola Virus Disease symptoms Patient denies exposure to infectious person Patient denies travel to an Ebola-affected area in the 21 days before illness onset No symptoms or risks identified at this time. Screenin:51 Abuse screen: Denies threats or abuse. Denies injuries from another. Nutritional bp screening: No deficits noted. Tuberculosis screening: No symptoms or risk factors identified. Fall Risk None identified. Assessment: 19:00 General: Appears in no apparent distress. comfortable, Behavior is calm, cooperative, bp appropriate for age. Pain: Denies pain. Neuro: Level of Consciousness is awake, alert, obeys commands, Oriented to person, place, time, situation, Appropriate for age. Cardiovascular: Rhythm is sinus rhythm. Respiratory: Airway is patent Respiratory effort is even, unlabored, Respiratory pattern is regular, symmetrical. GI: No signs and/or symptoms were reported involving the gastrointestinal system. : No signs and/or symptoms were reported regarding the genitourinary system. EENT: No deficits noted. Derm: No deficits noted. Musculoskeletal: Circulation, motion, and sensation intact. Range of motion: intact in all extremities. 20:30 Reassessment: ALL CURRENT ORDERS COMPLETED, LAB RESULTS PENDING. HYPERTENSIVE ON bp MONITOR. 21:56 Reassessment: PT D/C HOME VIA W/C WITH FAMILY, DX WITH HYPERKALEMIA AND FLUID OVERLOAD. bp Vital Signs: 18:27 BP 176 / 47; Pulse 79; Resp 19; Temp 98.4; Pulse Ox 92% on R/A; Weight 83.46 kg; Height aj 5 ft. 1 in. (154.94 cm); 20:00 BP 172 / 53; Pulse 86; Resp 14; Pulse Ox 93% on R/A; bp 21:56 BP 169 / 41; Pulse 76; Resp 14; Pulse Ox 96% ; bp 18:27 Body Mass Index 34.77 (83.46 kg, 154.94 cm) aj ED Course: 18:22 Patient arrived in ED. mr 18:22 Noman Laura DO is Private Physician. mr 18:26 Triage completed. aj 18:27 Arm band placed on right wrist. Patient placed in an exam room. aj 18:44 EKG done, by ED staff, reviewed by Cristóbal Waldron MD. jb1 19:06 [facility]C [facility]. snw 19:06 Cristóbal Waldron MD is Attending Physician. snw 19:15 Rod Mandujano, RN is Primary Nurse. bp 19:51 Patient has correct armband on for positive identification. Placed in gown. Bed in low bp position. Call light in reach. Side rails up X2. Adult w/ patient. 19:51 Inserted saline lock: 20 gauge in left forearm, using aseptic technique. Blood bp collected. 19:52 CT completed. Patient tolerated procedure well. Patient moved to CT via stretcher. Patient moved back from CT. 19:53 CT Stone Protocol In Process Unspecified. EDMS 20:05 XRAY Chest (1 view) In Process Unspecified. EDMS 21:18 Noman Laura DO is Referral Physician. snw 21:57 No provider procedures requiring assistance completed. IV discontinued, intact, bp bleeding controlled, No redness/swelling at site. Pressure dressing applied. Administered Medications: 20:03 Drug: NS 0.9% 1000 ml Route: IV; Rate: 75 ml/hr; Site: left forearm; bp 21:58 Follow up: IV Status: Completed infusion; IV Intake: 150ml bp 21:00 Drug: Lasix 20 mg Route: IVP; Site: left forearm; bp 21:37 Follow up: Response: No adverse reaction bp 21:00 Drug: Albuterol 2.5 mg Route: Inhalation; bp Intake: 21:58 IV: 150ml; Total: 150ml. bp Outcome: 21:19 Discharge ordered by . snw 21:57 Discharged to home via wheelchair, with family. bp 21:57 Condition: stable 21:57 Discharge instructions given to patient, Instructed on discharge instructions, follow up and referral plans. Demonstrated understanding of instructions, follow-up care. 22:19 Patient left the ED. bp Signatures: Dispatcher [employer] EDBart Larsen jbRita Hdez, RN RN Sheila Day, DISTRESSER-C DISTRESSER-Csnw Cara Mckay, Rod Moura, RN RN bp
[2017-10-19] MEDS ORDERED: ALBUTEROL 2.5 MG/3 ML NEB SOL ONE (21:37)
[2017-10-19] MEDS ORDERED: FUROSEMIDE 20 MG/ 2ML VIAL ONE (21:37)
[2017-10-19 22:24] VITALS: TEMP 98.4
[2017-10-19 22:26] VITALS: BP 169/41; O2SAT 96
--- NOTE | 2017-10-20 12:10 | EKG ---
Test Date: 2017-10-19 Test Time: 18:40:07 Entertainment Lawyer: ZAKIA MEASUREMENT RESULTS: Intervals: Rate: 79 FL: 170 QRSD: 72 QT: 398 QTc: 456 Bullock: P: 24 FL: 170 QRS: -9 T: 65 INTERPRETIVE STATEMENTS: Normal sinus rhythm Minimal voltage criteria for LVH, may be normal variant Inferior infarct, age undetermined Cannot rule out Anterior infarct, age undetermined Abnormal ECG Compared to ECG 09/29/2017 17:53:43 No significant changes Electronically Signed On 10-20-17 12:07:33 CDT by Kristopher Nino
== END 2017-10-19 22:19 | disposition home or self-care (01) ==
LOC: ER 18:20
DX: E87.5 Hyperkalemia (principal); E87.70 Fluid overload, unspecified; I10 Essential (primary) hypertension; I25.2 Old myocardial infarction; E78.00 Pure hypercholesterolemia, unspecified; E11.9 Type 2 diabetes mellitus without complications; I48.91 Unspecified atrial fibrillation; Z79.01 Long term (current) use of anticoagulants; Z79.82 Long term (current) use of aspirin; Z79.4 Long term (current) use of insulin; Z88.5 Allergy status to narcotic agent; Z85.3 Personal history of malignant neoplasm of breast
CPT/HCPCS: 36415; 71045; 74176; 76377; 80048; 80076; 81003; 82550; 82553; 83690; 83735; 83880; 84484; 85025; 85610; 85730; 87086; 87088; 93005; 96361; 96374; 99285; J1940; J7030; 80053

== ENCOUNTER 2017-11-23 12:39 | Emergency (ER) | payer OTHER ==
--- OUTSIDE RECORDS SUMMARY | 2017-11-23 12:41 | XMS REPORT ---
[...] Status Dosage System Date Date FreeStyle Lite [facility] 73622033525 0 Active CHECK Test BLOOD SUGAR TWICE DAILY Lipitor [facility] 55346714804 40 MG Active 1 TAB(S) ONCE A DAY ORALLY Losartan [facility] 05514421382 100 MG Orally Active 1 tablet Potassium Once a day Meclizine HCl [facility] 69550474393 25 Active CHEW AND SWALLOW 1 TABLET THREE TIMES DAILY Flonase Allergy [facility] 06305431075 50 MCG/ACT Active 1 spray in Relief Nasally Once a each day nostril Ferrous Sulfate [facility] 58177924168 325 (65 Fe) MG Active 1 tablet Orally Once a day Tresiba FlexTouch [facility] 10229769969 200 UNIT/ML Active 70 UNITS Subcutaneous DAILY Increase 2 untis after 3 day if BS are high Citalopram [facility] 80825791951 20 MG Orally Active 1 tablet Hydrobromide Once a day Chlorthalidone [facility] 22771361223 25 MG Orally Active 1 tablet Once a day in the morning with food Tresiba FlexTouch [facility] 31496534951 200 UNIT/ML Active not Subcutaneous defined Anastrozole [facility] 73873616322 1 MG Orally Active 1 tablet Once a day Topamax [facility] 98757536499 50 MG Orally Active 1 tablet Once a day Protonix [facility] 50146740883 40 MG Active 1 TAB(S) ONCE A DAY ORALLY Lipitor [facility] 58930149512 40 MG Orally Active 1 tablet Once a day Coumadin [facility] 86668062654 2 MG Orally Active 1 tablet Once a day BD Pen Needle [facility] 75611660993 0 Active USE DAILY Short U/F Citalopram [facility] 96269139458 20 Active TAKE 1 Hydrobromide TABLET BY MOUTH EVERY DAY Protonix [facility] 18951815925 40 MG Orally Active 1 tablet Once a day Results No Known Results Summary Purpose eClinicalWorks Submission
--- OUTSIDE RECORDS SUMMARY | 2017-11-23 12:41 | XMS REPORT ---
:1940 Author Organization eClinicalWorks Care Team Providers Name Role Phone Valentín [facility] Provider Role Unavailable Allergies No Known Allergies [...] Start End Date Status Dosage System Date [facility] 62374452311 200 UNIT/ML Active 70 UNITS FlexTouch Subcutaneous DAILY Increase 2 untis after 3 day if BS are high Results No Known Results Summary Purpose eClinicalWorks Submission
--- OUTSIDE RECORDS SUMMARY | 2017-11-23 12:41 | XMS REPORT ---
:1940 Author Organization eClinicalWorks Care Team Providers Name Role Phone Valentín [facility] Provider Role Unavailable Allergies No Known Allergies [...] Start End Date Status Dosage System Date [facility] [id number] - Oct 11, Active as directed Lancets 2018 Results No Known Results Summary Purpose eClinicalInvolver Submission
--- OUTSIDE RECORDS SUMMARY | 2017-11-23 12:41 | XMS REPORT ---
[...] End Status Dosage System Date Date Anastrozole [facility] 51417127071 1 MG Orally Active 1 tablet Once a day Lipitor [facility] 44845210922 40 MG Orally Active 1 tablet Once a day Protonix [facility] 01474780865 40 MG Orally Active 1 tablet Once a day Topamax [facility] 98912674460 50 MG Orally Active 1 tablet Once a day Ferrous Sulfate [facility] 88307915274 325 (65 Fe) MG Active 1 tablet Orally Once a day Lipitor [facility] 13377471464 40 Active 1 TAB(S) ONCE A DAY ORALLY Tresiba FlexTouch [facility] 06637285716 200 UNIT/ML Active 70 UNITS Subcutaneous DAILY Increase 2 untis after 3 day if BS are high HydrALAZINE HCl [facility] 59098870978 25 MG Orally Active 1 tablet Two times a day with food Tresiba FlexTouch [facility] 41995627023 200 UNIT/ML Active not Subcutaneous defined Tresiba FlexTouch [facility] 95233753992 200 UNIT/ML Active INJECT 70 UNITS UNDER THE SKIN EVERY DAY INCREASE 2 UNITS AFTER 3 DAYS IF BLOOD SUGAR IS HIGH FreeStyle Lite [facility] 46011952819 0 Active CHECK Test BLOOD SUGAR TWICE DAILY Losartan [facility] 75330606006 100 MG Orally Inactive 1 tablet Potassium Once a day Pantoprazole [facility] 44326581323 40 Active TAKE 1 Sodium TABLET BY MOUTH EVERY DAY Citalopram [facility] 50432708764 20 Active TAKE 1 Hydrobromide TABLET BY MOUTH EVERY DAY Meclizine HCl [facility] 80694205622 25 Active CHEW AND SWALLOW 1 TABLET THREE TIMES DAILY Citalopram [facility] 69187984514 20 MG Orally Active 1 tablet Hydrobromide Once a day Coumadin [facility] 21584454622 2 MG Orally Active 1 tablet Once a day Lipitor [facility] 96641478209 40 MG Active 1 TAB(S) ONCE A DAY ORALLY Chlorthalidone [facility] 25412780927 25 MG Orally Inactive 1 tablet Once a day in the morning with food Flonase Allergy [facility] 64564111402 50 MCG/ACT Active 1 spray in Relief Nasally Once a each day nostril Protonix [facility] 69801390987 40 MG Active 1 TAB(S) ONCE A DAY ORALLY BD Pen Needle [facility] 55518122691 0 Active USE DAILY Short U/F Results No Known Results Summary Purpose eClinicalWorks Submission
--- OUTSIDE RECORDS SUMMARY | 2017-11-23 12:41 | XMS REPORT ---
:1940 Author Organization eClinicalWorks Care Team Providers Name Role Phone Laura, [facility] Provider Role Unavailable Allergies, Adverse Reactions, [...] End Status Dosage System Date Date Citalopram [facility] 69489382864 20 MG Orally Active 1 tablet Hydrobromide Once a day Coumadin [place] 61991851510 2 MG Orally Active 1 tablet Once a day Lipitor ND 33208002698 40 MG Active 1 TAB(S) ONCE A DAY ORALLY Meclizine HCl ND 67782964912 25 MG Orally Active 1 tablet Three times a day Ferrous Sulfate ND 60545290973 325 (65 Fe) MG May Active 1 tablet Orally Once a 2017 day Tresiba FlexTouch ND 37730115701 200 UNIT/ML Active not Subcutaneous defined Chlorthalidone ND 64298308238 25 MG Orally Active 1 tablet Once a day in the morning with food FreeStyle Lite [facility] 03853841935 0 Active CHECK Test BLOOD SUGAR TWICE DAILY Flonase Allergy [facility] 83838347541 50 MCG/ACT Active 1 spray in Relief Nasally Once a each day nostril Meclizine HCl [facility] 22167287903 25 Active CHEW AND SWALLOW 1 TABLET THREE TIMES DAILY Anastrozole [facility] 95343862946 1 MG Orally Active 1 tablet Once a day Protonix [facility] 18520611440 40 MG Active 1 TAB(S) ONCE A DAY ORALLY Losartan [facility] 43682482918 100 MG Orally Active 1 tablet Potassium Once a day Topamax [facility] 32391148222 50 MG Orally Active 1 tablet Once a day Protonix [facility] 36362507278 40 MG Orally Active 1 tablet Once a day Tresiba FlexTouch [facility] 15629173292 200 UNIT/ML Active 40 UNITS DAILY Results No Known Results Summary Purpose eClinicalWorks Submission
--- OUTSIDE RECORDS SUMMARY | 2017-11-23 12:42 | XMS REPORT ---
:1940 Author Organization eClinicalWorks Care Team Providers Name Role Phone Valentín [facility] Provider Role Unavailable Allergies No [...] D50.9 Active Problem Breast cancer C50.919 Active Assessment Benign essential HTN I10 Active Problem Bladder incontinence R32 Active Problem Gout M10.9 Active Problem Anticoagulated Z79.01 Active Problem Back pain M54.9 Active Medications Medication Code Code Instructions Start End Status Dosage System Date Date Ferrous Sulfate [facility] 36480271222 325 (65 Fe) MG Active 1 tablet Orally Once a day FreeStyle Lite [facility] 74066793753 0 Active CHECK BLOOD Test SUGAR TWICE DAILY Citalopram [facility] 70178850118 20 Active TAKE 1 Hydrobromide TABLET BY MOUTH EVERY DAY Meclizine HCl [facility] 40590875457 25 Active CHEW AND SWALLOW 1 TABLET THREE TIMES DAILY Lipitor ND 76404586803 40 MG Orally Active 1 tablet Once a day Flonase Allergy ND 16476493630 50 MCG/ACT Active 1 spray in Relief Nasally Once a each day nostril Pantoprazole [facility] 67753323859 40 Active TAKE 1 Sodium TABLET BY MOUTH EVERY DAY FreeStyle [facility] 84331721668 - Oct 11, Active as directed Lancets 2018 HydrALAZINE HCl [facility] 81548603737 25 MG Orally Active 1 tablet Two times a day with food Lyrica [facility] 64877415352 50 MG Orally Oct 30, Active 1 capsule Twice a day 2017 BD Pen Needle [facility] 59457937650 0 Active USE DAILY Short U/F Anastrozole [facility] 14741532270 1 MG Orally Active 1 tablet Once a day Topamax [facility] 15499386635 50 MG Orally Active 1 tablet Once a day Coumadin [facility] 35708800886 2 MG Orally Active 1 tablet Once a day Tresiba [facility] 22247575813 200 UNIT/ML Active INJECT 70 FlexTouch UNITS UNDER THE SKIN EVERY DAY INCREASE 2 UNITS AFTER 3 DAYS IF BLOOD SUGAR IS HIGH Results No Known Results Summary Purpose eClinicalWorks Submission
[2017-11-23] MEDS ORDERED: D5 0.9 NS 1,000 ML IV ONE (13:07)
[2017-11-23 13:16] LABS: Absolute Lymphocytes (CBC) 0.8 K/uL (0.7-4.9); Absolute Monocytes 0.3 K/uL (0.1-1.3); Absolute Neutrophil 7.8 K/uL (1.8-8.0); Basophils % 0.5 % (0-1.3); Eosinophils % 0.1 % (0-4.4); Hematocrit 32.2 % (36.0-45.0); Lymphocytes % 9.3 % (15.3-44.8); MCH 31.7 pg (27.0-35.0); MCV 98.3 fL (80-100); MPV 9.2 fL (7.6-11.3); Monocytes % 2.9 % (3.3-12.3); RBC Red Blood Cell Count 3.28 M/uL (3.86-4.86)
[2017-11-23 13:20] LABS: Protime INR 3.16
--- NOTE | 2017-11-23 13:35 | RAD REPORT ---
EXAM DESCRIPTION: CT - Head Brain Wo Cont - 11/23/2017 1:20 pm CLINICAL HISTORY: Alteration of awareness/confusion COMPARISON: September 2017 TECHNIQUE: Computed axial tomography of the head was obtained. IV contrast was not requested. All CT scans are performed using dose optimization technique as appropriate and may include automated exposure control or mA/KV adjustment according to patient size. FINDINGS: An intracranial bleed is not seen . The ventricles are normal in caliber. No extra-axial fluid collection is noted. Fluid within the sinuses/ mastoids is not seen. IMPRESSION: No acute intracranial abnormality is seen. If patient's symptoms persist MRI of the bra in would be recommended.
[2017-11-23 13:37] LABS: ALT/SGPT 28 U/L (12-78); AST/SGOT 29 U/L (15-37); Alkaline Phosphatase 110 U/L (45-117); BUN Blood Urea Nitrogen 67 mg/dL (7-18); Bicarbonate 23 mmol/L (21-32); Bilirubin Direct 0.1 mg/dL (0-0.2); Bilirubin Total 0.3 mg/dL (0.2-1.0); Glucose Level 121 mg/dL (74-106); NT PRO-BNP 1164 pg/mL (<450); Potassium 4.9 mmol/L (3.5-5.1); Protein, Total 6.9 g/dL (6.4-8.2); Sodium Level 145 mmol/L (136-145); Troponin (Emerg Dept Use Only) < 0.02 ng/mL (0.0-0.045)
--- NOTE | 2017-11-23 14:38 | RAD REPORT ---
EXAM DESCRIPTION: [place] Single View11/23/2017 2:12 pm CLINICAL HISTORY: Chest pain COMPARISON: 10/2017 FINDINGS: The lungs appear clear of acute infiltrate. The heart is mildly enlarged IMPRESSION: No acute abnormalities displayed
--- NOTE | 2017-11-23 17:39 | EDPHYS ---
Physician Documentation [facility] Name: Sarah Garcia Age: 76 yrs Sex: Female : 1940 Arrival Date: 11/23/2017 Time: 12:43 Bed 16 Private MD: ED Physician Pankaj Hung HPI: 11/23 16:47 This 76 yrs old Female presents to ER via EMS with complaints of Hypoglycemia pm1 and altered mental status. 16:47 The patient presents with decreased mental status. Onset: The symptoms/episode pm1 began/occurred this morning. Possible causes: low blood sugar, the patient apparently forgot to eat. 16:47 Associated signs and symptoms: Pertinent positives: confusion, Pertinent negatives: pm1 abdominal pain, chest pain, diarrhea, dizziness, headache, lightheadedness, nausea, shortness of breath, vomiting. Current symptoms: In the emergency department the patient's symptoms have improved, Patient given 1/2 amp D50 and 250 mL D10 by EMS prior to arrival. Patient's baseline: Neuro: alert and fully oriented, Motor: no deficits, Ambulation: walks without assistance, Speech: normal. The patient has not experienced similar symptoms in the past. The patient has not recently seen a physician. Patient's daughter was preparing breakfast and when she went to try to wake her mother she was hard to arouse. Checked her sugar and it was in the 20's. Called EMS and was given 1/2 amp D50 and 250ml of D10. Patient AAOx3. She forgot to eat her dinner last night. Last took medication for diabetes yesterday morning. Patient takes Toujeo. Historical: - Allergies: 12:49 QUINOLONES; aa5 - PMHx: 12:49 Atrial Fib; Diabetes - IDDM; GERD; High Cholesterol; Hypertension; Myocardial aa5 infarction; - Immunization history:: Adult Immunizations unknown. - Ebola Screening: : No symptoms or risks identified at this time. - Social history:: Smoking status: Patient/guardian denies using tobacco. ROS: 16:47 Constitutional: Negative for fever, chills, and weight loss, Eyes: Negative for injury, pm1 pain, redness, and discharge, ENT: Negative for injury, pain, and discharge, Neck: Negative for injury, pain, and swelling, Cardiovascular: Negative for chest pain, palpitations, and edema, Respiratory: Negative for shortness of breath, cough, wheezing, and pleuritic chest pain, Abdomen/GI: Negative for abdominal pain, nausea, vomiting, diarrhea, and constipation, Back: Negative for injury and pain, : Negative for injury, bleeding, discharge, and swelling, MS/Extremity: Negative for injury and deformity, Skin: Negative for injury, rash, and discoloration, Neuro: Negative for headache, weakness, numbness, tingling, and seizure. Exam: 16:47 Constitutional: This is a well developed, well nourished patient who is awake, alert, pm1 and in no acute distress. Head/Face: Normocephalic, atraumatic. Eyes: Pupils equal round and reactive to light, extra-ocular motions intact. Lids and lashes normal. Conjunctiva and sclera are non-icteric and not injected. Cornea within normal limits. Periorbital areas with no swelling, redness, or edema. ENT: Nares patent. No nasal discharge, no septal abnormalities noted. Tympanic membranes are normal and external auditory canals are clear. Oropharynx with no redness, swelling, or masses, exudates, or evidence of obstruction, uvula midline. Mucous membranes moist. Neck: Trachea midline, no thyromegaly or masses palpated, and no cervical lymphadenopathy. Supple, full range of motion without nuchal rigidity, or vertebral point tenderness. No Meningismus. Chest/axilla: Normal chest wall appearance and motion. Nontender with no deformity. No lesions are appreciated. Cardiovascular: Regular rate and rhythm with a normal S1 and S2. No gallops, murmurs, or rubs. Normal PMI, no JVD. No pulse deficits. Respiratory: Lungs have equal breath sounds bilaterally, clear to auscultation and percussion. No rales, rhonchi or wheezes noted. No increased work of breathing, no retractions or nasal flaring. Abdomen/GI: Soft, non-tender, with normal bowel sounds. No distension or tympany. No guarding or rebound. No evidence of tenderness throughout. Back: No spinal tenderness. No costovertebral tenderness. Full range of motion. Skin: Warm, dry with normal turgor. Normal color with no rashes, no lesions, and no evidence of cellulitis. MS/ Extremity: Pulses equal, no cyanosis. Neurovascular intact. Full, normal range of motion. 16:47 Neuro: Orientation: is normal, Mentation: is normal, Cerebellar function: normal finger to nose testing, Motor: is normal, Sensation: is normal, no obvious gross deficits. Vital Signs: 12:47 BP 116 / 74; Pulse 72; Resp 18 S; Temp 98.4(O); Pulse Ox 97% on R/A; Weight 82.55 kg aa5 (R); Pain 5/10; 13:45 BP 118 / 77; Pulse 66; Resp 14 S; Pulse Ox 98% on R/A; Pain 5/10; aa5 15:47 BP 145 / 68; Pulse 78; Resp 19; Pulse Ox 98% on R/A; kr2 17:33 BP 117 / 88; Pulse 79; Resp 16; Pulse Ox 98% on R/A; em1 18:39 BP 142 / 88; Pulse 80; Resp 16; Pulse Ox 99% ; kr2 MDM: 12:45 Patient medically screened. pm1 17:36 Data reviewed: vital signs. Data interpreted: Pulse oximetry: on room air is 98 %. pm1 Interpretation: normal. Counseling: I had a detailed discussion with the patient and/or guardian regarding: the historical points, exam findings, and any diagnostic results supporting the discharge/admit diagnosis, lab results, radiology results, the need for outpatient follow up, to return to the emergency department if symptoms worsen or persist or if there are any questions or concerns that arise at home. 17:39 ED course: patient's blood sugar stable after patient consumed lunch. She last took her pm1 insulin, yesterday morning. She did not take insulin today. Reason for her hypoglycemia is not eating dinner last night. With patient's blood sugar stable, patient is safe for discharge. Instructed patient to remember to eat consistent meals daily and to follow up with her PCP . 11/23 12:51 Order name: glucometer results - FOR PT WITH NO ID; Complete Time: 13:12 em 11/23 12:54 Order name: Basic Metabolic Panel; Complete Time: 13:48 pm1 11/23 12:54 Order name: CBC with Diff; Complete Time: 13:48 pm1 11/23 12:54 Order name: LFT's; Complete Time: 13:48 pm1 11/23 12:54 Order name: Magnesium; Complete Time: 13:48 pm1 11/23 12:54 Order name: NT PRO-BNP; Complete Time: 13:48 pm1 11/23 12:52 Order name: CT Head Brain wo Cont; Complete Time: 13:48 pm1 11/23 12:54 Order name: PT-INR; Complete Time: 13:48 pm1 11/23 12:54 Order name: Troponin (emerg Dept Use Only); Complete Time: 13:48 pm1 11/23 12:54 Order name: XRAY Chest (1 view); Complete Time: 14:40 pm1 11/23 14:05 Order name: Glucose, Ancillary Testing; Complete Time: 14:07 EDMS 11/23 14:23 Order name: Strep; Complete Time: 16:42 pm1 11/23 16:03 Order name: Throat Culture EDMS 11/23 12:54 Order name: EKG; Complete Time: 12:54 pm1 11/23 12:54 Order name: Cardiac monitoring; Complete Time: 13:07 pm1 11/23 12:54 Order name: EKG - Nurse/Tech; Complete Time: 13:07 pm1 11/23 12:54 Order name: IV Saline Lock; Complete Time: 13:07 pm1 11/23 12:54 Order name: Labs collected and sent; Complete Time: 13:07 pm1 11/23 12:54 Order name: O2 Per Protocol; Complete Time: 13:07 pm1 11/23 12:54 Order name: O2 Sat Monitoring; Complete Time: 13:07 pm1 11/23 14:05 Order name: Diet Regular; Complete Time: 14:05 aa5 Administered Medications: Discontinued: D5-NS 1000 ml IV at 125 ml/hr continuous 13:05 Drug: D5-NS 1000 ml Route: IV; Rate: 125 ml/hr; Site: left forearm; aa5 19:20 Follow up: Response: No adverse reaction; IV Status: Order to discontinue infusion kr2 17:31 Not Given (Physician Discretion): D50W 50 ml IVP once; (1 amp) kr2 Point of Care Testing: Blood Glucose: 12:47 Blood Glucose: 163 mg/dL; aa5 14:25 Blood Glucose: 85 mg/dL; aa5 15:17 Blood Glucose: 179 mg/dL; kr2 16:06 Blood Glucose: 231 mg/dL; kr2 17:32 Blood Glucose: 218 mg/dL; em1 14:25 FILTER TENDER JELLY was notified aa5 Ranges: Critical Glucose Levels:Adult <50 mg/dl or >400 mg/dl <40 mg/dl or >180 mg/dl Disposition: 11/24 06:20 Co-signature as Attending Physician, Pankaj Hung MD I agree with the assessment and kdr plan of care. Disposition: 11/23/17 17:38 Discharged to Home. Impression: Hypoglycemia, unspecified. - Condition is Stable. - Discharge Instructions: Hypoglycemia, Blood Glucose Monitoring, Adult. - Medication Reconciliation Form, Thank You Letter form. - Follow up: Emergency Department; When: As needed; Reason: Worsening of condition. Follow up: Private Physician; When: 2 - 3 days; Reason: Recheck today's complaints, Continuance of care, Re-evaluation by your physician. - Problem is new. - Symptoms have improved. Signatures: Dispatcher [employer] EDMS Pankaj Hung MD MD kdr Lissy Hanson RN RN aa5 Buck Parekh FILTER TENDER JELLY FIL[employer] T[employer]ER JELLY pm1 Dianne Carr, RN RN kr2 Corrections: (The following items were deleted from the chart) 11/23 19:26 17:38 11/23/2017 17:38 Discharged to Home. Impression: Hypoglycemia, unspecified. kr2 Condition is Stable. Forms are Medication Reconciliation Form, Thank You Letter, Antibiotic Education, Prescription Opioid Use. Follow up: Emergency Department; When: As needed; Reason: Worsening of condition. Follow up: Private Physician; When: 2 - 3 days; Reason: Recheck today's complaints, Continuance of care, Re-evaluation by your physician. Problem is new. Symptoms have improved. pm1
--- NOTE | 2017-11-23 17:39 | ER ---
Nurse's Notes [facility] Name: Sarah Garcia Age: 76 yrs Sex: Female : 1940 Arrival Date: 11/23/2017 Time: 12:43 Bed 16 Private MD: Diagnosis: Hypoglycemia, unspecified Presentation: 11/23 12:43 Presenting complaint: EMS states: "pt's family reported confusion since last night and aa5 they though she was sleeping in today but today at 1030 when they checked on her they found her obtunded in bed and called 911". EMS reports FSBG was 24 at scene arrival and after D50 and D10 administration increased to 127 and pt became A \\T\\ O x 4. 12:43 Transition of care: patient was not received from another setting of care. Onset of aa5 symptoms was November 23, 2017. Risk Assessment: Do you want to hurt yourself or someone else? Patient reports no desire to harm self or others. Initial Sepsis Screen: Does the patient meet any 2 criteria? No. Patient's initial sepsis screen is negative. Does the patient have a suspected source of infection? No. Patient's initial sepsis screen is negative. Care prior to arrival: Medication(s) given: D50, 1/2 amp, 250 cc of D10. 12:43 Method Of Arrival: EMS: [facility] aa5 12:43 Acuity: CHRISS 2 aa5 Historical: - Allergies: 12:49 QUINOLONES; aa5 - PMHx: 12:49 Atrial Fib; Diabetes - IDDM; GERD; High Cholesterol; Hypertension; Myocardial aa5 infarction; - Immunization history:: Adult Immunizations unknown. - Ebola Screening: : No symptoms or risks identified at this time. - Social history:: Smoking status: Patient/guardian denies using tobacco. Screenin:45 Abuse screen: Denies threats or abuse. Nutritional screening: No deficits noted. aa5 Tuberculosis screening: No symptoms or risk factors identified. Fall Risk Fall in past 12 months (25 points). IV access (20 points). Mental Status- Overestimates/Forgets Limitations (15 pts.). Total Lutz Fall Scale indicates High Risk Score (45 or more points). Fall prevention measures have been instituted. Side Rails Up X 2. Assessment: 12:45 General: Appears comfortable, Behavior is calm, cooperative. Pain: Complains of pain in aa5 throat Pain does not radiate. Pain currently is 5 out of 10 on a pain scale. Quality of pain is described as sore Pain began 2-3 days ago. Is continuous. Neuro: Level of Consciousness is awake, alert, obeys commands, Mild drowsiness noted . Oriented to person, place, time, situation, Mohs Surgeon are weak bilaterally Moves all extremities. Speech is normal, Facial symmetry appears normal, Pupils are PERRLA, Pt reports generalized weakness. Pt states "I don't know what happened, I just remember the ambulance telling me they were taking me to the hospital" . Cardiovascular: Heart tones S1 S2 present Rhythm is regular. Respiratory: Airway is patent Respiratory effort is even, unlabored, Respiratory pattern is regular, symmetrical, Breath sounds are clear bilaterally. GI: Abdomen is round non-distended, Bowel sounds present X 4 quads. Abd is soft and non tender X 4 quads. Patient currently denies nausea, vomiting. : No signs and/or symptoms were reported regarding the genitourinary system. EENT: Throat is pink. Derm: Skin is pink, warm \\T\\ dry. Musculoskeletal: Range of motion: intact in all extremities. 13:45 Reassessment: Patient and/or family updated on plan of care and expected duration. Pain aa5 level reassessed. Patient is alert, oriented x 3, equal unlabored respirations, skin warm/dry/pink. Pt's family at bedside. 14:15 Reassessment: Patient appears in no apparent distress at this time. Patient and/or kr2 family updated on plan of care and expected duration. Pain level reassessed. Patient is alert, oriented x 3, equal unlabored respirations, skin warm/dry/pink. Given sandwich and juice as instructed by provider, D50 on hold at this time. 15:46 Reassessment: Patient appears in no apparent distress at this time. Patient and/or kr2 family updated on plan of care and expected duration. Pain level reassessed. Patient is alert, oriented x 3, equal unlabored respirations, skin warm/dry/pink. Patient states she is not supposed to have blood pressures or IV's in her right arm due to a breast surgery she had recently. Sleeve place on right arm. Patient cleaned of incontinence at this time. 16:33 Reassessment: Patient appears in no apparent distress at this time. Patient and/or kr2 family updated on plan of care and expected duration. Pain level reassessed. Patient is alert, oriented x 3, equal unlabored respirations, skin warm/dry/pink. Patient denies pain at this time. 17:34 Reassessment: Patient appears in no apparent distress at this time. Patient and/or kr2 family updated on plan of care and expected duration. Pain level reassessed. Patient is alert, oriented x 3, equal unlabored respirations, skin warm/dry/pink. Patient denies pain at this time. Patient states feeling better. 17:45 Reassessment: Spoke with patient's daughter Ekaterina on the phone as requested by patient to kr2 notify her of discharge. Ekaterina states she will be here to pick the patient up as soon as she can. 18:39 Reassessment: Patient appears in no apparent distress at this time. Patient and/or kr2 family updated on plan of care and expected duration. Pain level reassessed. Patient is alert, oriented x 3, equal unlabored respirations, skin warm/dry/pink. Patient waiting for transportation to arrive to pick her up. Vital Signs: 12:47 BP 116 / 74; Pulse 72; Resp 18 S; Temp 98.4(O); Pulse Ox 97% on R/A; Weight 82.55 kg aa5 (R); Pain 5/10; 13:45 BP 118 / 77; Pulse 66; Resp 14 S; Pulse Ox 98% on R/A; Pain 5/10; aa5 15:47 BP 145 / 68; Pulse 78; Resp 19; Pulse Ox 98% on R/A; kr2 17:33 BP 117 / 88; Pulse 79; Resp 16; Pulse Ox 98% on R/A; em1 18:39 BP 142 / 88; Pulse 80; Resp 16; Pulse Ox 99% ; kr2 ED Course: 12:43 Patient arrived in ED. iw 12:43 Arm band placed on. aa5 12:44 Buck Parekh NP is PHCP. pm1 12:45 Pankaj Hung MD is Attending Physician. pm1 12:45 Patient has correct armband on for positive identification. Placed in gown. Bed in low aa5 position. Call light in reach. Side rails up X2. residential monitor on. Pulse ox on. NIBP on. 12:48 Lissy Hanson, RN is Primary Nurse. aa5 12:54 Triage completed. aa5 13:00 No provider procedures requiring assistance completed. aa5 13:00 Maintain EMS IV. Dressing intact. Good blood return noted. Site clean \\T\\ dry. Gauge \\T\\ aa 5 site: 20 G to L FA. 13:16 EKG done, by electrostatic powder coating technician. reviewed by Buck Parekh NP. at1 13:20 CT completed. Patient tolerated procedure well. Patient moved to CT via stretcher. Patient moved back from CT. 13:20 CT Head Brain wo Cont In Process Unspecified. EDMS 14:05 Report given to MARANDA Dean. aa5 14:11 X-ray completed. Portable x-ray completed in exam room. Patient tolerated procedure mh1 well. 14:12 XRAY Chest (1 view) In Process Unspecified. EDMS 19:15 IV discontinued, intact, bleeding controlled, No redness/swelling at site. Pressure kr2 dressing applied. Administered Medications: Discontinued: D5-NS 1000 ml IV at 125 ml/hr continuous 13:05 Drug: D5-NS 1000 ml Route: IV; Rate: 125 ml/hr; Site: left forearm; aa5 19:20 Follow up: Response: No adverse reaction; IV Status: Order to discontinue infusion kr2 17:31 Not Given (Physician Discretion): D50W 50 ml IVP once; (1 amp) kr2 Point of Care Testing: Blood Glucose: 12:47 Blood Glucose: 163 mg/dL; aa5 14:25 Blood Glucose: 85 mg/dL; aa5 15:17 Blood Glucose: 179 mg/dL; kr2 16:06 Blood Glucose: 231 mg/dL; kr2 17:32 Blood Glucose: 218 mg/dL; em1 14:25 ELECTRONICS PRODUCTION SUPERVISOR was notified aa5 Ranges: Outcome: 17:38 Discharge ordered by MD. pm1 18:40 Condition: good kr2 19:20 Discharged to home via wheelchair, with family. kr2 19:20 Discharge instructions given to patient, family, Instructed on discharge instructions, follow up and referral plans. Demonstrated understanding of instructions, follow-up care. 19:26 Patient left the ED. kr2 Signatures: Dispatcher [employer] EDMS Gillian Worley Alissa Riggins sj Lucero Gates RN RN iw Martinez, Eric em1 Lissy Hanson RN RN aa5 Rita Joaquin, ultrasound technol EKG Tat1 Buck Parekh, ELECTRONICS PRODUCTION SUPERVISOR ELECTRONICS PRODUCTION SUPERVISOR pm1 Dianne Carr, RN RN kr2 Corrections: (The following items were deleted from the chart) 14:24 12:45 Neuro: Level of Consciousness is awake, alert, obeys commands, Oriented to aa5 person, place, time, situation, Mohs Surgeon are weak bilaterally Moves all extremities. Speech is normal, Facial symmetry appears normal, Pupils are PERRLA, Pt reports generalized weakness. Pt states "I don't know what happened, I just remember the ambulance telling me they were taking me to the hospital" . aa5 14:25 14:03 Blood Glucose: Blood Glucose Reading=85 mg/dL. aa5 aa5
[2017-11-23 19:30] VITALS: TEMP 98.4
[2017-11-23 19:35] VITALS: BP 142/88; O2SAT 99
--- NOTE | 2017-11-24 04:19 | EKG ---
Test Date: 2017-11-23 Test Time: 12:59:28 Animal Keeper: JOSUE/Patience MEASUREMENT RESULTS: Intervals: Rate: 70 WA: 170 QRSD: 76 QT: 424 QTc: 457 [place]: P: 32 WA: 170 QRS: 0 T: 43 INTERPRETIVE STATEMENTS: Normal sinus rhythm Possible Lateral infarct, age undetermined Inferior infarct, age undetermined Abnormal ECG Compared to ECG 10/19/2017 18:40:07 Left ventricular hypertrophy no longer present Myocardial infarct finding still present Electronically Signed On 11-24-17 04:17:21 CDT by Kristopher Nino
== END 2017-11-23 19:26 | disposition home or self-care (01) ==
LOC: ER 12:39
DX: E11.649 Type 2 diabetes mellitus with hypoglycemia without coma (principal); I10 Essential (primary) hypertension; I25.2 Old myocardial infarction; Z88.8 Allergy status to other drugs, medicaments and biological substances
CPT/HCPCS: 36415; 70450; 71045; 80048; 80076; 82962; 83735; 83880; 84484; 85025; 85610; 87070; 87081; 93005; 96365; 96366; 99285

== ENCOUNTER 2017-11-25 09:34 | Observation (INO) | payer OTHER ==
--- OUTSIDE RECORDS SUMMARY | 2017-11-25 09:36 | XMS REPORT ---
:1940 Author Organization eClinicalWorks Care Team Providers Name Role Phone Valentín [facility] Provider Role Unavailable Allergies No Known [...] Start End Date Status Dosage System Date [facility] 89055982555 200 UNIT/ML Active 70 UNITS FlexTouch Subcutaneous DAILY Increase 2 untis after 3 day if BS are high Results No Known Results Summary Purpose eClinicalWorks Submission
--- OUTSIDE RECORDS SUMMARY | 2017-11-25 09:36 | XMS REPORT ---
:1940 Author Organization eClinicalWorks Care Team Providers Name Role Phone Laura, [facility] Provider Role Unavailable Allergies, Adverse Reactions, Alerts [...] End Status Dosage System Date Date Citalopram [facility] 63707358285 20 MG Orally Active 1 tablet Hydrobromide Once a day Coumadin ND 84763310430 2 MG Orally Active 1 tablet Once a day Lipitor ND 32836067129 40 MG Active 1 TAB(S) ONCE A DAY ORALLY Meclizine HCl ND 45454304860 25 MG Orally Active 1 tablet Three times a day Ferrous Sulfate ND 74796010566 325 (65 Fe) MG May Active 1 tablet Orally Once a 2017 day Tresiba FlexTouch ND 79859879488 200 UNIT/ML Active not Subcutaneous defined Chlorthalidone ND 68320217511 25 MG Orally Active 1 tablet Once a day in the morning with food FreeStyle Lite [facility] 61359069979 0 Active CHECK Test BLOOD SUGAR TWICE DAILY Flonase Allergy [facility] 42470831053 50 MCG/ACT Active 1 spray in Relief Nasally Once a each day nostril Meclizine HCl [facility] 48917953960 25 Active CHEW AND SWALLOW 1 TABLET THREE TIMES DAILY Anastrozole [facility] 15302518232 1 MG Orally Active 1 tablet Once a day Protonix [facility] 67483240041 40 MG Active 1 TAB(S) ONCE A DAY ORALLY Losartan [facility] 73051714269 100 MG Orally Active 1 tablet Potassium Once a day Topamax [facility] 45220011401 50 MG Orally Active 1 tablet Once a day Protonix [facility] 96021271727 40 MG Orally Active 1 tablet Once a day Tresiba FlexTouch [facility] 91948276821 200 UNIT/ML Active 40 UNITS DAILY Results No Known Results Summary Purpose eClinicalWorks Submission
--- OUTSIDE RECORDS SUMMARY | 2017-11-25 09:36 | XMS REPORT ---
[...] Status Dosage System Date Date FreeStyle Lite [facility] 66270604326 0 Active CHECK Test BLOOD SUGAR TWICE DAILY Lipitor [facility] 14443738335 40 MG Active 1 TAB(S) ONCE A DAY ORALLY Losartan [facility] 15063170600 100 MG Orally Active 1 tablet Potassium Once a day Meclizine HCl [facility] 80367702486 25 Active CHEW AND SWALLOW 1 TABLET THREE TIMES DAILY Flonase Allergy [facility] 40595067927 50 MCG/ACT Active 1 spray in Relief Nasally Once a each day nostril Ferrous Sulfate [facility] 08960098568 325 (65 Fe) MG Active 1 tablet Orally Once a day Tresiba FlexTouch [facility] 36949704552 200 UNIT/ML Active 70 UNITS Subcutaneous DAILY Increase 2 untis after 3 day if BS are high Citalopram [facility] 64023540558 20 MG Orally Active 1 tablet Hydrobromide Once a day Chlorthalidone [facility] 65405394807 25 MG Orally Active 1 tablet Once a day in the morning with food Tresiba FlexTouch [facility] 31790023573 200 UNIT/ML Active not Subcutaneous defined Anastrozole [facility] 24099532696 1 MG Orally Active 1 tablet Once a day Topamax [facility] 48665431100 50 MG Orally Active 1 tablet Once a day Protonix [facility] 63208488019 40 MG Active 1 TAB(S) ONCE A DAY ORALLY Lipitor [facility] 28674502536 40 MG Orally Active 1 tablet Once a day Coumadin [facility] 89761024932 2 MG Orally Active 1 tablet Once a day BD Pen Needle [facility] 44712946241 0 Active USE DAILY Short U/F Citalopram [facility] 73564976614 20 Active TAKE 1 Hydrobromide TABLET BY MOUTH EVERY DAY Protonix [facility] 18420383174 40 MG Orally Active 1 tablet Once a day Results No Known Results Summary Purpose eClinicalWorks Submission
--- OUTSIDE RECORDS SUMMARY | 2017-11-25 09:37 | XMS REPORT ---
[...] End Status Dosage System Date Date Anastrozole [facility] 81900990288 1 MG Orally Active 1 tablet Once a day Lipitor [facility] 49546932539 40 MG Orally Active 1 tablet Once a day Protonix [facility] 83448926432 40 MG Orally Active 1 tablet Once a day Topamax [facility] 83846627570 50 MG Orally Active 1 tablet Once a day Ferrous Sulfate [facility] 41967054568 325 (65 Fe) MG Active 1 tablet Orally Once a day Lipitor [facility] 21576027507 40 Active 1 TAB(S) ONCE A DAY ORALLY Tresiba FlexTouch [facility] 31520679050 200 UNIT/ML Active 70 UNITS Subcutaneous DAILY Increase 2 untis after 3 day if BS are high HydrALAZINE HCl [facility] 78530666492 25 MG Orally Active 1 tablet Two times a day with food Tresiba FlexTouch [facility] 12106054911 200 UNIT/ML Active not Subcutaneous defined Tresiba FlexTouch [facility] 84789292773 200 UNIT/ML Active INJECT 70 UNITS UNDER THE SKIN EVERY DAY INCREASE 2 UNITS AFTER 3 DAYS IF BLOOD SUGAR IS HIGH FreeStyle Lite [facility] 03959766356 0 Active CHECK Test BLOOD SUGAR TWICE DAILY Losartan [facility] 51459939682 100 MG Orally Inactive 1 tablet Potassium Once a day Pantoprazole [facility] 07106450877 40 Active TAKE 1 Sodium TABLET BY MOUTH EVERY DAY Citalopram [facility] 70816252899 20 Active TAKE 1 Hydrobromide TABLET BY MOUTH EVERY DAY Meclizine HCl [facility] 61378080976 25 Active CHEW AND SWALLOW 1 TABLET THREE TIMES DAILY Citalopram [facility] 82549882555 20 MG Orally Active 1 tablet Hydrobromide Once a day Coumadin [facility] 16712151907 2 MG Orally Active 1 tablet Once a day Lipitor [facility] 12141672009 40 MG Active 1 TAB(S) ONCE A DAY ORALLY Chlorthalidone [facility] 18858473712 25 MG Orally Inactive 1 tablet Once a day in the morning with food Flonase Allergy [facility] 55090802533 50 MCG/ACT Active 1 spray in Relief Nasally Once a each day nostril Protonix [facility] 53592566353 40 MG Active 1 TAB(S) ONCE A DAY ORALLY BD Pen Needle [facility] 14791855978 0 Active USE DAILY Short U/F Results No Known Results Summary Purpose eClinicalWorks Submission
--- OUTSIDE RECORDS SUMMARY | 2017-11-25 09:37 | XMS REPORT ---
:1940 Author Organization eClinicalWorks Care Team Providers Name Role Phone Valentín [facility] Provider Role Unavailable Allergies No Known [...] Start End Date Status Dosage System Date [facility] 61059315498 - Oct 11, Active as directed Lancets 2018 Results No Known Results Summary Purpose [employer] Submission
--- OUTSIDE RECORDS SUMMARY | 2017-11-25 09:37 | XMS REPORT ---
:1940 Author Organization eClinicalWorks Care Team Providers Name Role Phone Valentín [facility] Provider Role Unavailable Allergies No Known [...] Status Dosage System Date Date Ferrous Sulfate [facility] 48159306924 325 (65 Fe) MG Active 1 tablet Orally Once a day FreeStyle Lite [facility] 63916282465 0 Active CHECK BLOOD Test SUGAR TWICE DAILY Citalopram [facility] 52444478205 20 Active TAKE 1 Hydrobromide TABLET BY MOUTH EVERY DAY Meclizine HCl [facility] 46315787571 25 Active CHEW AND SWALLOW 1 TABLET THREE TIMES DAILY Lipitor ND 83951253775 40 MG Orally Active 1 tablet Once a day Flonase Allergy ND 93523100055 50 MCG/ACT Active 1 spray in Relief Nasally Once a each day nostril Pantoprazole [facility] 76853167202 40 Active TAKE 1 Sodium TABLET BY MOUTH EVERY DAY FreeStyle [facility] 64616109924 - Oct 11, Active as directed Lancets 2018 HydrALAZINE HCl [facility] 08814275327 25 MG Orally Active 1 tablet Two times a day with food Lyrica [facility] 45473822402 50 MG Orally Oct 30, Active 1 capsule Twice a day 2017 BD Pen Needle [facility] 11868014805 0 Active USE DAILY Short U/F Anastrozole [facility] 16948437538 1 MG Orally Active 1 tablet Once a day Topamax [facility] 88913993414 50 MG Orally Active 1 tablet Once a day Coumadin [facility] 32500861458 2 MG Orally Active 1 tablet Once a day Tresiba [facility] 98905051804 200 UNIT/ML Active INJECT 70 FlexTouch UNITS UNDER THE SKIN EVERY DAY INCREASE 2 UNITS AFTER 3 DAYS IF BLOOD SUGAR IS HIGH Results No Known Results Summary Purpose eClinicalWorks Submission
[2017-11-25] MEDS ORDERED: D50W 25 GM/50 ML SYRINGE IV ONE (10:04)
[2017-11-25 10:05] LABS: Absolute Lymphocytes (CBC) 1.3 K/uL (0.7-4.9); Absolute Monocytes 0.3 K/uL (0.1-1.3); Absolute Neutrophil 4.8 K/uL (1.8-8.0); Basophils % 0.8 % (0-1.3); Eosinophils % 0.3 % (0-4.4); Hematocrit 30.6 % (36.0-45.0); Lymphocytes % 20.2 % (15.3-44.8); MCH 32.1 pg (27.0-35.0); MCV 97.8 fL (80-100); MPV 9.2 fL (7.6-11.3); RBC Red Blood Cell Count 3.13 M/uL (3.86-4.86)
[2017-11-25 10:16] LABS: Potassium 5.2 mmol/L (3.5-5.1)
--- NOTE | 2017-11-25 11:19 | ER ---
Nurse's Notes [facility] Emergency Department Name: Sarah Garcia Age: 76 yrs Sex: Female : 1940 Arrival Date: 11/25/2017 Time: 09:35 Bed 6 Private MD: Diagnosis: Hypoglycemia, unspecified;Altered mental status, unspecified Presentation: 11/25 09:36 Presenting complaint: EMS states: BGL 28 ON SCENE, OBTUNDED. Transition of care: bp patient was not received from another setting of care. Onset of symptoms is unknown. Risk Assessment: Do you want to hurt yourself or someone else? Patient reports no desire to harm self or others. Initial Sepsis Screen: Does the patient meet any 2 criteria? No. Patient's initial sepsis screen is negative. Does the patient have a suspected source of infection? No. Patient's initial sepsis screen is negative. Care prior to arrival: Medication(s) given: D10 GTT IV initiated. 20 GA, in the left antecubital area, Glucose check: 28. 09:36 Method Of Arrival: EMS: [facility] bp 09:36 Acuity: CHRISS 2 bp Triage Assessment: 09:36 General: Appears in no apparent distress. comfortable, obese, Behavior is calm, bp cooperative, appropriate for age, drowsy. Pain: Denies pain. Historical: - Allergies: 09:52 QUINOLONES; bp - Home Meds: 09:52 anastrozole 1 mg Oral tab 1 tab once daily [Active]; aspirin 81 mg Oral chew 1 tab once bp daily [Active]; atorvastatin 40 mg Oral tab 1 tab once daily [Active]; BREAST CANCER PILL AND RADIATION [Active]; chlorthalidone 25 mg Oral tab 1 tab once daily [Active]; citalopram 20 mg tab 1 tab once daily [Active]; Coumadin 2.5 mg Oral tab 1 tab once daily [Active]; ferrous sulfate 325 mg (65 mg iron) Oral tab [Active]; losartan 100 mg Oral tab 1 tab once daily [Active]; Lyrica Oral 1 cap [Active]; meclizine 25 mg Oral chew 1 tab once daily [Active]; miconazole nitrate 1,200-2 mg-% Vaginal kit 2 times per day [Active]; [place] 5-325 mg Oral tab 1 tab as needed for Pain [Active]; pantoprazole 40 mg Oral TbEC 1 tab once daily [Active]; tramadol 50 mg Oral tab 1 tab daily [Active]; TRESIBA FLEXTOUCH U-100, 40 UINTIS [Active]; Vitamin D Oral [Active]; - PMHx: 09:52 Atrial Fib; Diabetes - IDDM; GERD; High Cholesterol; Hypertension; Myocardial bp infarction; - Immunization history:: Adult Immunizations up to date. - Social history:: Smoking status: Patient/guardian denies using tobacco. - Ebola Screening: : Patient negative for fever greater than or equal to 101.5 degrees Fahrenheit, and additional compatible Ebola Virus Disease symptoms Patient denies exposure to infectious person Patient denies travel to an Ebola-affected area in the 21 days before illness onset No symptoms or risks identified at this time. Screenin:39 Abuse screen: Denies threats or abuse. Denies injuries from another. Nutritional bp screening: No deficits noted. Tuberculosis screening: No symptoms or risk factors identified. Fall Risk None identified. Assessment: 09:39 General: Appears in no apparent distress. comfortable, obese, Behavior is cooperative, bp appropriate for age, drowsy. Pain: Denies pain. Neuro: Level of Consciousness is alert, obeys commands, lethargic, Oriented to person, place, time, situation, Appropriate for age. Cardiovascular: No deficits noted. Rhythm is sinus rhythm. Respiratory: Airway is patent Respiratory effort is even, unlabored, Respiratory pattern is regular, symmetrical. GI: No signs and/or symptoms were reported involving the gastrointestinal system. : No signs and/or symptoms were reported regarding the genitourinary system. EENT: No deficits noted. Derm: No deficits noted. Musculoskeletal: Circulation, motion, and sensation intact. Range of motion: intact in all extremities. 11:06 Reassessment: BGL WNL \T\ 108. PT REMAINS AOx4, VS STABLE. bp 12:05 Reassessment: PT EATING. ADMIT IN PROCESS. bp 12:07 Reassessment: Patient appears in no apparent distress at this time. Patient and/or hb family updated on plan of care and expected duration. Pain level reassessed. Patient is alert, oriented x 3, equal unlabored respirations, skin warm/dry/pink. Vital Signs: 09:36 BP 152 / 69; Pulse 72; Resp 14; Temp 97.6; Pulse Ox 97% ; Weight 81.65 kg; bp 10:16 Pulse 93; Resp 16; Pulse Ox 97% ; bp 10:45 BP 141 / 47; Pulse 71; Resp 12; Pulse Ox 96% ; bp 12:05 BP 137 / 32; Pulse 77; Resp 16; Pulse Ox 100% ; bp 12:45 BP 131 / 50; Pulse 70; Resp 16; Pulse Ox 100% ; bp ED Course: 09:35 Patient arrived in ED. em1 09:35 Rod Mandujano, RN is Primary Nurse. bp 09:36 Pankaj Hung MD is Attending Physician. kdr 09:36 Arm band placed on right wrist. bp 09:37 Triage completed. bp 09:39 Patient has correct armband on for positive identification. Bed in low position. Call bp light in reach. Side rails up X2. 09:39 Maintain EMS IV. Dressing intact. Good blood return noted. Site clean \T\ dry. Gauge \T\ bp site: 20 GAUGE LEFT AC. 09:53 glucometer results - FOR PT WITH NO ID Sent. bp 11:17 Juan José Serna DO is Hospitalizing Provider. kdr 12:05 Cleaned of incontinence. diaper changed, repostitioned with assistance. hb 12:47 No provider procedures requiring assistance completed. Patient admitted, IV remains in bp place. Administered Medications: 10:01 Drug: D50W 25 ml Route: IVP; Site: left antecubital; bp 11:07 Follow up: Response: Blood sugar is elevated bp Point of Care Testing: Blood Glucose: 09:36 Blood Glucose: 54 mg/dL; bp 11:06 Blood Glucose: 108 mg/dL; bp Ranges: Outcome: 11:18 Decision to Hospitalize by Provider. kdr 12:46 Admitted to Tele accompanied by tech, family with patient, via wheelchair, room 414, bp with chart, Report called to SOFI LOW 12:47 Condition: stable bp 12:47 Instructed on the need for admit. 13:42 Patient left the ED. bp Signatures: Pankaj Hung MD MD kdr Eliot Reed em1 Martha Villanueva, RN RN hb Rod Mandujano, MARANDA RN bp
--- NOTE | 2017-11-25 11:19 | EDPHYS ---
Physician Documentation [facility] Name: Sarah Garcia Age: 76 yrs Sex: Female : 1940 Arrival Date: 11/25/2017 Time: 09:35 Bed 6 Private MD: ED Physician Pankaj Hung HPI: 11/25 09:52 This 76 yrs old Female presents to ER via EMS with complaints of AMS, low BS. kdr 09:52 Apparently family found the patient this morning and she was unresponsive with snoring kdr respirations., EMS was called, they found that she had a BGL of 28 and gave her some sugar. She then began to wake up. She was here several days ago for the same problem. No etiology was determined at that time thought it was thought that she any have taken too much insulin. She prepares and administers her own insulin. She denies that she had had any insulin yet today. Onset: The symptoms/episode began/occurred just prior to arrival, this morning. Severity of symptoms: At their worst the symptoms were mild moderate just prior to arrival, in the emergency department the symptoms have improved moderately. The patient has experienced similar episodes in the past, multiple times, Was here a few days ago for the same problem. The patient has been recently seen by a physician: The patient has been recently seen at the [facility] Emergency Department. Historical: - Allergies: 09:52 QUINOLONES; bp - Home Meds: 09:52 anastrozole 1 mg Oral tab 1 tab once daily [Active]; aspirin 81 mg Oral chew 1 tab once bp daily [Active]; atorvastatin 40 mg Oral tab 1 tab once daily [Active]; BREAST CANCER PILL AND RADIATION [Active]; chlorthalidone 25 mg Oral tab 1 tab once daily [Active]; citalopram 20 mg tab 1 tab once daily [Active]; Coumadin 2.5 mg Oral tab 1 tab once daily [Active]; ferrous sulfate 325 mg (65 mg iron) Oral tab [Active]; losartan 100 mg Oral tab 1 tab once daily [Active]; Lyrica Oral 1 cap [Active]; meclizine 25 mg Oral chew 1 tab once daily [Active]; miconazole nitrate 1,200-2 mg-% Vaginal kit 2 times per day [Active]; [place] 5-325 mg Oral tab 1 tab as needed for Pain [Active]; pantoprazole 40 mg Oral TbEC 1 tab once daily [Active]; tramadol 50 mg Oral tab 1 tab daily [Active]; TRESIBA FLEXTOUCH U-100, 40 UINTIS [Active]; Vitamin D Oral [Active]; - PMHx: 09:52 Atrial Fib; Diabetes - IDDM; GERD; High Cholesterol; Hypertension; Myocardial bp infarction; - Immunization history:: Adult Immunizations up to date. - Social history:: Smoking status: Patient/guardian denies using tobacco. - Ebola Screening: : Patient negative for fever greater than or equal to 101.5 degrees Fahrenheit, and additional compatible Ebola Virus Disease symptoms Patient denies exposure to infectious person Patient denies travel to an Ebola-affected area in the 21 days before illness onset No symptoms or risks identified at this time. ROS: 09:52 Constitutional: Negative for fever, chills, and weight loss, Eyes: Negative for injury, kdr pain, redness, and discharge, Neck: Negative for injury, pain, and swelling, Cardiovascular: Negative for chest pain, palpitations, and edema, Respiratory: Negative for shortness of breath, cough, wheezing, and pleuritic chest pain, Abdomen/GI: Negative for abdominal pain, nausea, vomiting, diarrhea, and constipation, Back: Negative for injury and pain, : Negative for injury, bleeding, discharge, and swelling, MS/Extremity: Negative for injury and deformity, Skin: Negative for injury, rash, and discoloration, Neuro: Negative for headache, weakness, numbness, tingling, and seizure activity. Psych: Negative for depression, anxiety, suicide ideation, homicidal ideation, and hallucinations, Allergy/Immunology: Negative for hives, rash, and allergies, Hematologic/Lymphatic: Negative for swollen nodes, abnormal bleeding, and unusual bruising. 09:52 Endocrine: Positive for low BS. Exam: 09:52 Constitutional: This is a well developed, well nourished patient who is awake, alert, kdr and in no acute distress. Head/Face: Normocephalic, atraumatic. Eyes: Pupils equal round and reactive to light, extra-ocular motions intact. Lids and lashes normal. Conjunctiva and sclera are non-icteric and not injected. Cornea within normal limits. Periorbital areas with no swelling, redness, or edema. Neck: Trachea midline, no thyromegaly or masses palpated, and no cervical lymphadenopathy. Supple, full range of motion without nuchal rigidity, or vertebral point tenderness. No Meningismus. Chest/axilla: Normal chest wall appearance and motion. Nontender with no deformity. No lesions are appreciated. Cardiovascular: Regular rate and rhythm with a normal S1 and S2. No gallops, murmurs, or rubs. Normal PMI, no JVD. No pulse deficits. Respiratory: Lungs have equal breath sounds bilaterally, clear to auscultation and percussion. No rales, rhonchi or wheezes noted. No increased work of breathing, no retractions or nasal flaring. Back: No spinal tenderness. No costovertebral tenderness. Full range of motion. Skin: Warm, dry with normal turgor. Normal color with no rashes, no lesions, and no evidence of cellulitis. MS/ Extremity: Pulses equal, no cyanosis. Neurovascular intact. Full, normal range of motion. Neuro: Awake and alert, GCS 15, oriented to person, place, time, and situation. Cranial nerves II-XII grossly intact. Motor strength 5/5 in all extremities. Sensory grossly intact. Cerebellar exam normal. Normal gait. Psych: Awake, alert, with orientation to person, place and time. Behavior, mood, and affect are within normal limits. 09:52 Abdomen/GI: Inspection: obese scar(s), Bowel sounds: normal, Palpation: soft, mild abdominal tenderness, in all quadrants. Vital Signs: 09:36 BP 152 / 69; Pulse 72; Resp 14; Temp 97.6; Pulse Ox 97% ; Weight 81.65 kg; bp 10:16 Pulse 93; Resp 16; Pulse Ox 97% ; bp 10:45 BP 141 / 47; Pulse 71; Resp 12; Pulse Ox 96% ; bp 12:05 BP 137 / 32; Pulse 77; Resp 16; Pulse Ox 100% ; bp 12:45 BP 131 / 50; Pulse 70; Resp 16; Pulse Ox 100% ; bp MDM: 09:52 Data reviewed: vital signs, nurses notes. Counseling: I had a detailed discussion with kdr the patient and/or guardian regarding: the historical points, exam findings, and any diagnostic results supporting the discharge/admit diagnosis, lab results. 11:18 Patient medically screened. [facility] 11/25 09:36 Order name: glucometer results - FOR PT WITH NO ID em1 11/25 09:50 Order name: CBC with Diff; Complete Time: 10:55 kdr 11/25 09:50 Order name: Chem 7; Complete Time: 10:55 kdr 11/25 12:03 Order name: Diet Regular; Complete Time: 12:04 ss 11/25 12:42 Order name: Potassium EDMS Administered Medications: 10:01 Drug: D50W 25 ml Route: IVP; Site: left antecubital; bp 11:07 Follow up: Response: Blood sugar is elevated bp Point of Care Testing: Blood Glucose: 09:36 Blood Glucose: 54 mg/dL; bp 11:06 Blood Glucose: 108 mg/dL; bp Ranges: Critical Glucose Levels:Adult <50 mg/dl or >400 mg/dl <40 mg/dl or >180 mg/dl Disposition: 11/25/17 11:18 Hospitalization ordered by Juan José Serna for Observation. Preliminary diagnosis are Hypoglycemia, unspecified, Altered mental status, unspecified. - Bed requested for Telemetry/MedSurg (observation). - Status is Observation. bp - Condition is Fair. - Problem is an acute exacerbation. - Symptoms have improved. UTI on Admission? No Signatures: Dispatcher [employer] EDMS JuliaEbony cormierara bd Pankaj Hung MD MD kdr Rod Mandujano RN RN bp Corrections: (The following items were deleted from the chart) 12:19 11:18 Hospitalization Ordered by Juan José Serna DO for Observation. Preliminary bd diagnosis is Hypoglycemia, unspecified; Altered mental status, unspecified. Bed requested for Telemetry/MedSurg (observation). Status is Observation. Condition is Fair. Problem is an acute exacerbation. Symptoms have improved. UTI on Admission? No. kdr 13:42 12:19 11/25/2017 11:18 Hospitalization Ordered by Juan José Serna DO for Observation. bp Preliminary diagnosis is Hypoglycemia, unspecified; Altered mental status, unspecified. Bed requested for Telemetry/MedSurg (observation). Status is Observation. Condition is Fair. Problem is an acute exacerbation. Symptoms have improved. UTI on Admission? No. bd
[2017-11-25] MEDS ORDERED: ONDANSETRON 4 MG/2 ML VIAL IV PRN (11:26)
[2017-11-25] MEDS ORDERED: ACETAMINOPHEN 500 MG TAB PO PRN (11:26)
[2017-11-25] MEDS: INSULIN -REGULAR HUMAN 50 UNIT/0.5 ML ML SQ SCH ×3 (11:30→20:36)
--- NOTE | 2017-11-25 11:59 | P.HP ---
Certification for Inpatient Patient admitted to: Observation With expected LOS: <2 Midnights Patient will require the following post-hospital care: Other (Home health) Practitioner: I am a practitioner with admitting privileges, knowledge of patient current condition, hospital course, and medical plan of care. Services: Services provided to patient in accordance with Admission requirements found in Title 42 Section 412.3 of the Code of Federal Regulations Patient History Date of Service: 11/25/17 Primary Care Provider: Dr. Laura; Endocrinology-Dr. Mariano Reason for admission: Hypoglycemia History of Present Illness: 76-year-old female presented to the emergency room with hypoglycemia. Her family member checked her blood sugar this morning. It was around 25. EMS was called. She was given glucose with improvement. Family member reports that her blood sugars had been low at times. Patient was recently started on a new diabetic medication orally by her circus rider. Patient also takes basal insulin. Patient denies any chest pain, shortness of breath, headaches her dizziness. Patient stable this time. Blood sugar improved. Patient was seen in the emergency room. Repeat blood sugar at 88. Sodium 144, potassium 5.2, BUN of 54, creatinine within 1.8 with a GFR of 27. White count 6.5, hemoglobin 10. Patient was admitted for observation. When I saw the patient ER, she appeared comfortable. Family at bedside. Patient with history of diabetes type 2 on basal insulin. She has had episodes of hypoglycemia in the past Allergies Quinolones Allergy (Verified 09/25/17 01:08) Anaphylaxis Home medications list reviewed: Yes Home Medications: Citalopram Hydrobromide [Celexa] 20 mg PO DAILY 01/02/12 Ferrous Sulfate [Feosol] 325 mg PO DAILY 10/28/13 Aspirin 81 mg PO DAILY 08/21/15 Insulin Degludec [Tresiba Flextouch U-200] 58 units SQ BID 04/15/16 Meclizine HCl [Antivert*] 25 mg PO TID 04/15/16 Anastrozole [Arimidex*] 1 mg PO DAILY 09/25/17 Atorvastatin Calcium [Lipitor] 40 mg PO BEDTIME 09/25/17 Cholecalciferol (Vitamin D3) [Vitamin D3] 1 tab PO DAILY 09/25/17 Hydrocodone 5/APAP 325 [[place] 5/325*] 1 tab PO Q4H PRN 09/25/17 Pantoprazole [Protonix Tab*] 40 mg PO DAILY 09/25/17 Pregabalin [Lyrica*] 50 mg PO DAILY 09/25/17 Tramadol HCl [Ultram] 50 mg PO Q6H PRN 09/25/17 Warfarin Sodium [Coumadin*] 2.5 mg PO DAILY 09/25/17 Amox/Clavulanate [Augmentin 500-125 mg Tab*] 500 mg PO BID #10 tab 09/27/17 Docusate [Colace Cap*] 100 mg PO BID cap 09/27/17 Hydralazine [Apresoline*] 25 mg PO BID #60 tab 09/27/17 - Past Medical/Surgical History Diabetic: Yes -: Atrial fibrillation, Cardiology-Dr. Camarena -: Chronic anticoagulation-Coumadin -: HTN -: GERD -: Chronic renal disease, Baseline GFR-30, Nephrology -: PVD -: Gout -: Depression with Anxiety -: Diabetes mellitus type 2, insulin-dependent -: Coronary disease -: Carotid arterial disease -: Hyperlipidemia -: Appendectomy -: Tubal ligation -: Hysterectomy -: Heart Cath Psychosocial/ Personal History[facility] has 10 children. - Family History Brother -: Diabetes Mother -: Heart disease, Hypertension, Diabetes Notes: arthritis - Social History Smoking Status: Never smoker Alcohol use: No CD- Drugs: No Caffeine use: Yes Place of Residence: Home Review of Systems General: Weakness, As per HPI Eyes: Unremarkable ENT: Unremarkable Respiratory: Unremarkable Cardiovascular: Unremarkable Gastrointestinal: Unremarkable Genitourinary: Unremarkable Musculoskeletal: Unremarkable Integumentary: Unremarkable Neurological: Unremarkable Lymphatics: Unremarkable Physical Examination - Physical Exam General: Alert, In no apparent distress, Oriented x3, Cooperative HEENT: Atraumatic, Normocephalic, Mucous membr. moist/pink Neck: Supple, No Thyromegaly Respiratory: Clear to auscultation bilaterally, Normal air movement Cardiovascular: Normal pulses, Regular rate/rhythm Gastrointestinal: Normal bowel sounds, Soft and benign, Non-distended, No tenderness, No masses, No rebound, No guarding Musculoskeletal: No erythema, No tenderness, No warmth Integumentary: No tenderness/swelling, No erythema, No warmth, No cyanosis Neurological: Normal speech, Normal strength at 5/5 x4 extr, Normal tone, Normal affect - Studies Laboratory Data (last 24 hrs) 11/25/17 09:55: Sodium 144, Potassium 5.2 H, BUN 54 H, Creatinine 1.80 H, Glucose 88 11/25/17 09:55: WBC 6.5 D, Hgb 10.1 L, Hct 30.6 L, Plt Count 210 Assessment and Plan - Plan Impression: Hypoglycemia with diabetes type 2, insulin-dependent Hypertension Hyperkalemia Chronic renal disease, stage 3 Chronic atrial fibrillation on Coumadin CAD with history of PVD Hyperlipidemia GERD Anemia likely of chronic disease Plan: Hypoglycemia with diabetes type 2, insulin-dependent: Blood sugar improved. We will hold basal insulin at this time. Patient recently seen by Endocrinology and started on a new oral medication this past week. Will need to find out what medications she took. Will check A1c. Will recommend to decrease basal insulin at discharge. Will monitor blood sugars closely. Will reassess tomorrow. Anticipate discharge tomorrow with lower dose of basal insulin and discontinuation of oral medication. Hypertension: Will need to obtain and restart home medication Hyperkalemia: Will recheck potassium level. Patient may require Kayexalate. Will need to review home medications as this may interfere with this. Chronic renal disease, stage 3: This appears stable at this time. Will monitor closely Chronic atrial fibrillation on Coumadin: Will need to obtain and restart home medication. Will check INR. CAD with history of PVD: Will need to review and restart home medication Hyperlipidemia: Will need to review and restart home medication. GERD: Will provide PPI. Anemia likely of chronic disease: Currently stable this time. Will monitor closely. Discharge Plan: Home Plan to discharge in: 24 Hours - Advance Directives Does patient have a Living Will: Yes Does patient have a Durable POA for Healthcare: Yes - Code Status/Comfort Care Code Status Assessed: Yes (Patient full code.) Time Spent Managing Pts Care (In Minutes): 55
[2017-11-25] MEDS ORDERED: ENOXAPARIN 30 MG/0.3 ML SQ SCH (13:00)
[2017-11-25 13:39] VITALS: BMI 34.4
[2017-11-25 13:58] LABS: Protime INR 3.79
[2017-11-25 15:17] LABS: Urine Appearance CLEAR; Urine Bilirubin NEGATIVE (NEG); Urine Blood NEGATIVE (NEG); Urine Color YELLOW; Urine Glucose NEGATIVE (NEG); Urine Protein TRACE (NEG); Urine Specific Gravity 1.015 (1.005-1.030); Urine Urobilinogen 0.2 mg/dL (0.2-1.0); Urine pH 5.5 (5.0-7.0)
[2017-11-25 15:20] LABS: Urine Microscopic Reflex NO UMIC
[2017-11-25] MEDS ORDERED: PNEUMOCOCCAL VACCINE 0.5 ML IMVAC ONE (17:00)
[2017-11-25] MEDS ORDERED: INFLUENZA VACCINE (for 3y+) 0.5 ML DOSE IMVAC ONE (17:00)
[2017-11-25] MEDS: HYDRALAZINE HCL 25 MG TABLET PO SCH (20:32)
[2017-11-25] MEDS: ATORVASTATIN 40 MG TAB PO SCH (20:33)
[2017-11-26 06:02] LABS: Absolute Lymphocytes (CBC) 1.4 K/uL (0.7-4.9); Absolute Monocytes 0.3 K/uL (0.1-1.3); Absolute Neutrophil 3.3 K/uL (1.8-8.0); Basophils % 0.8 % (0-1.3); Eosinophils % 5.6 % (0-4.4); Hematocrit 27.3 % (36.0-45.0); Lymphocytes % 26.3 % (15.3-44.8); MCH 32.3 pg (27.0-35.0); MCV 97.9 fL (80-100); MPV 8.7 fL (7.6-11.3); Monocytes % 5.5 % (3.3-12.3); RBC Red Blood Cell Count 2.79 M/uL (3.86-4.86)
[2017-11-26 06:19] LABS: Magnesium 2.1 mg/dL (1.8-2.4); Potassium 5.2 mmol/L (3.5-5.1)
[2017-11-26] MEDS: INSULIN -REGULAR HUMAN 50 UNIT/0.5 ML ML SQ SCH ×4 (07:30→21:41)
[2017-11-26] MEDS ORDERED: WARFARIN SODIUM 2.5 MG TAB PO SCH (09:00)
[2017-11-26] MEDS ORDERED: HOME MED 1 EA UNK (Citalopram Hydrobromide [Celexa] 20 MG) PO SCH (09:00)
[2017-11-26] MEDS: WARFARIN SODIUM 2 MG TAB PO SCH (09:00)
[2017-11-26] MEDS: HYDRALAZINE HCL 25 MG TABLET PO SCH ×2 (09:45→21:41)
[2017-11-26] MEDS: FERROUS SULFATE 325 MG TAB PO SCH (09:45)
[2017-11-26] MEDS: CITALOPRAM 10 MG TABLET PO SCH (09:46)
[2017-11-26] MEDS: ANASTROZOLE 1 MG TAB PO SCH (09:46)
[2017-11-26] MEDS: PREGABALIN 50 MG CAP PO SCH (09:46)
[2017-11-26] MEDS: PANTOPRAZOLE 40MG TABLET PO SCH (09:46)
[2017-11-26] MEDS: ASPIRIN EC 81 MG TAB PO SCH (09:46)
[2017-11-26] MEDS ORDERED: SOD POLYSTYREN SUL 15 GM/60 ML UCUP PO ONE (13:52)
--- NOTE | 2017-11-26 13:55 | P.PN ---
Subjective Date of Service: 11/26/17 Primary Care Provider: Dr. Laura; Endocrinology-Dr. Mariano Chief Complaint: Hypoglycemia Subjective: Improving (But blood sugar was decreased this morning. She felt fatigued. Potassium also elevated.) Physical Examination - Vital Signs Temperature: 98.3 F Blood Pressure: 196/78 Pulse: 82 Respirations: 18 Pulse Ox (%): 94 - Physical Exam General: Alert, In no apparent distress, Oriented x3, Cooperative HEENT: Atraumatic Neck: Supple Respiratory: Clear to auscultation bilaterally, Normal air movement Cardiovascular: Normal pulses, Regular rate/rhythm Gastrointestinal: Normal bowel sounds, Soft and benign, Non-distended, No tenderness, No masses, No rebound, No guarding Musculoskeletal: No erythema, No tenderness, No warmth Integumentary: No tenderness/swelling, No erythema, No warmth, No cyanosis Neurological: Normal speech, Normal strength at 5/5 x4 extr, Normal tone, Normal affect - Studies Medications List Reviewed: Yes Assessment & Plan Discharge Plan: Home Plan to discharge in: 24 Hours Physician Review Additional Text: Impression: Hypoglycemia with diabetes type 2, insulin-dependent Hypertension Hyperkalemia Chronic renal disease, stage 3 Chronic atrial fibrillation on Coumadin CAD with history of PVD Hyperlipidemia GERD Anemia likely of chronic disease Plan: Hypoglycemia with diabetes type 2, insulin-dependent: Blood sugar still low this morning. Basal insulin currently on hold. Will monitor blood sugar throughout the day. Medications verified. She is taking Tresiba 58 units subcu in the morning and new medication is Januvia 50 mg daily. I will continue to recommend to hold both medications until blood sugar has significantly improved. Likely at discharge Januvia will need to be discontinued and insulin therapy-after see above will need to be decreased significantly. Hypoglycemia education addressed in detail. Will continue to reassess. Likely home tomorrow. Hypertension: Will will increase blood pressure medication for better control Hyperkalemia: Recheck potassium this morning still elevated. Will provide Kayexalate. Will monitor closely. Chronic renal disease, stage 3: This appears stable at this time. Will monitor closely Chronic atrial fibrillation on Coumadin: Will continue with medication. Will hold Coumadin if INR greater than 3.0 CAD with history of PVD: Will continue with home medication Hyperlipidemia: Will continue with home medication. GERD: Will continue with PPI. Anemia likely of chronic disease: Currently stable this time. Will monitor closely. I will turn the service over to Dr. Laura tomorrow. I will go over the plan of care with her. Time Spent Managing Pts Care (In Minutes): 55
[2017-11-26] MEDS: ATORVASTATIN 40 MG TAB PO SCH (21:41)
[2017-11-27] MEDS: INSULIN -REGULAR HUMAN 50 UNIT/0.5 ML ML SQ SCH ×2 (07:30→12:25)
[2017-11-27] MEDS: PANTOPRAZOLE 40MG TABLET PO SCH (08:47)
[2017-11-27] MEDS: FERROUS SULFATE 325 MG TAB PO SCH (08:47)
[2017-11-27] MEDS: ASPIRIN EC 81 MG TAB PO SCH (08:47)
[2017-11-27] MEDS: HYDRALAZINE HCL 25 MG TABLET PO SCH (08:47)
[2017-11-27] MEDS: PREGABALIN 50 MG CAP PO SCH (08:47)
[2017-11-27] MEDS: CITALOPRAM 10 MG TABLET PO SCH (08:47)
[2017-11-27] MEDS: ANASTROZOLE 1 MG TAB PO SCH (08:48)
[2017-11-27 09:09] VITALS: O2SAT 95
[2017-11-27 10:44] LABS: Protime INR 1.67
[2017-11-27] MEDS: WARFARIN SODIUM 2 MG TAB PO SCH (10:52)
[2017-11-27 13:36] VITALS: BP 142/63; TEMP 98
--- NOTE | 2017-11-27 14:43 | P.SSS ---
Patient History Date of Service: 11/27/17 Primary Care Provider: Dr. Laura; Endocrinology-Dr. Mariano Reason for admission: Hypoglycemia History of Present Illness: 76-year-old female presented to the emergency room with hypoglycemia. Her family member checked her blood sugar this morning. It was around 25. EMS was called. She was given glucose with improvement. Family member reports that her blood sugars had been low at times. Patient was recently started on a new diabetic medication orally by her insurance processing clerk. Patient also takes basal insulin. Patient denies any chest pain, shortness of breath, headaches her dizziness. Patient stable this time. Blood sugar improved. Patient was seen in the emergency room. Repeat blood sugar at 88. Sodium 144, potassium 5.2, BUN of 54, creatinine within 1.8 with a GFR of 27. White count 6.5, hemoglobin 10. Patient was admitted for observation. When I saw the patient ER, she appeared comfortable. Family at bedside. Patient with history of diabetes type 2 on basal insulin. She has had episodes of hypoglycemia in the past Allergies Quinolones Allergy (Verified 09/25/17 01:08) Anaphylaxis Home Medications: Citalopram Hydrobromide [Celexa] 20 mg PO DAILY 01/02/12 Ferrous Sulfate [Feosol] 325 mg PO DAILY 10/28/13 Meclizine HCl [Antivert*] 25 mg PO TID 04/15/16 Anastrozole [Arimidex*] 1 mg PO DAILY 09/25/17 Atorvastatin Calcium [Lipitor] 40 mg PO BEDTIME 09/25/17 Cholecalciferol (Vitamin D3) [Vitamin D3] 1 tab PO DAILY 09/25/17 Pantoprazole [Protonix Tab*] 40 mg PO DAILY 09/25/17 Pregabalin [Lyrica*] 50 mg PO BID 09/25/17 Warfarin Sodium [Coumadin*] 2 mg PO DAILY 6PM 09/25/17 Hydralazine [Apresoline*] 25 mg PO BID #60 tab 09/27/17 Chlorthalidone [Hygroton 25mg Tab*] 25 mg PO DAILY 11/26/17 Insulin Degludec [Tresiba Flextouch U-200] 40 units SQ DAILY #1 insuln.pen 11/27 - Past Medical/Surgical History Diabetic: Yes -: Atrial fibrillation, Cardiology-Dr. Dabaghi -: Chronic anticoagulation-Coumadin -: HTN -: GERD -: Chronic renal disease, Baseline GFR-30, Nephrology -: PVD -: Gout -: Depression with Anxiety -: Diabetes mellitus type 2, insulin-dependent -: Coronary disease -: Carotid arterial disease -: Hyperlipidemia -: Appendectomy -: Tubal ligation -: Hysterectomy -: Heart Cath Psychosocial/ Personal History: Patient currently lives in assisted living facility-[facility]. She has 10 children. - Family History Brother -: Diabetes Mother -: Heart disease, Hypertension, Diabetes Notes: arthritis - Social History Smoking Status: Never smoker Alcohol use: No CD- Drugs: No Caffeine use: Yes Place of Residence: Home Review of Systems 10-point ROS is otherwise unremarkable Physical Examination - Vital Signs Temperature: 98.0 F Blood Pressure: 142/63 Pulse: 78 Respirations: 20 Pulse Ox (%): 98 - Physical Exam General: Alert, In no apparent distress HEENT: Atraumatic, PERRLA, Mucous membr. moist/pink, EOMI, Sclerae nonicteric Neck: Supple, 2+ carotid pulse no bruit, No LAD, Without JVD or thyroid abnormality Respiratory: Clear to auscultation bilaterally, Normal air movement Cardiovascular: Regular rate/rhythm, Normal S1 S2 Gastrointestinal: Normal bowel sounds, No tenderness Musculoskeletal: No tenderness Integumentary: No rashes Neurological: Normal gait, Normal speech, Normal strength at 5/5 x4 extr, Normal tone, Normal affect Lymphatics: No axilla or inguinal lymphadenopathy - Diagnosis (Problem(s)) (1) Hypoglycemia Onset Date: 10/26/15 Current Visit: No Status: Acute (2) CAD (coronary artery disease) Onset Date: 11/27/17 Current Visit: Yes Status: Chronic Qualifiers: Coronary Disease-Associated Artery/Lesion type: [place] artery [place] vs. transplanted heart: [place] heart Associated angina: without angina Qualified Code(s): I25.10 - Atherosclerotic heart disease of [place] coronary artery without angina pectoris (3) Hyperlipidemia Onset Date: 11/27/17 Current Visit: Yes Status: Chronic Qualifiers: Hyperlipidemia type: mixed hyperlipidemia Qualified Code(s): E78.2 - Mixed hyperlipidemia (4) Atrial fibrillation Onset Date: 11/27/17 Current Visit: Yes Status: Chronic Qualifiers: Atrial fibrillation type: chronic Qualified Code(s): I48.2 - Chronic atrial fibrillation (5) CKD (chronic kidney disease) stage 3, GFR 30-59 ml/min Onset Date: 11/27/17 Current Visit: Yes Status: Chronic (6) CHF (congestive heart failure) Onset Date: 07/06/15 Current Visit: No Status: Chronic Qualifiers: Heart failure type: unspecified Heart failure chronicity: chronic Qualified Code(s): I50.9 - Heart failure, unspecified (7) Carotid arterial disease Onset Date: 04/17/16 Current Visit: No Status: Chronic Qualifiers: Laterality: right Qualified Code(s): I77.9 - Disorder of arteries and arterioles, unspecified (8) Depression with anxiety Current Visit: No Status: Chronic (9) Diabetes mellitus Onset Date: 07/06/15 Current Visit: No Status: Chronic Qualifiers: Diabetes mellitus type: type 2 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 insulin use: with chcf use Diabetes mellitus complication status: with kidney complications Diabetes mellitus complication detail: with chronic kidney disease Chronic kidney disease stage: stage 4 (severe) Qualified Code(s): E11.22 - Type 2 diabetes mellitus with diabetic chronic kidney disease; N18.4 - Chronic kidney disease, stage 4 (severe); Z79.4 - group home (current) use of insulin (10) GERD (gastroesophageal reflux disease) Current Visit: No Status: Chronic Qualifiers: Esophagitis presence: esophagitis presence not specified Qualified Code(s) : K21.9 - Gastro-esophageal reflux disease without esophagitis Treatment Summary: Overall during the hospital stay patient remained stable Patient was initially admitted to the hospital for hypoglycemia most likely secondary to her head foods lysine and medication for type 2 diabetes. Patient has been taking Prilosec he along with Januvia which were prescribed by her insurance processing clerk. Patient however for now has different needs for hypoglycemic agents. This was advised to stop taking Januvia and continue taking Trilisate the at 40 units daily. Patient was asked to continue taking the walker for her blood sugar and bring it over to the primary care doctor's office along with her insurance processing clerk. Patient did markedly well here in the hospital. Her hypoglycemia did resolved while here in the hospital. - Disposition Disposition: ROUTINE DISCHARGE Condition: GOOD Patient Discharge Instructions: Please f.u with PCP in 1 to 2 days post discharge. Stop Medication. Januvia. Change Medication. Trulicity is now 40Units Diet: Regular Activity: Ad laz
== END 2017-11-27 14:41 | disposition home health service (06) ==
LOC: ER 09:34 → ERHOLD 11:20 → 4TH 12:53
PROVIDERS: ADMIT Family Medicine; ATTEND Family Medicine
DX: E11.649 Type 2 diabetes mellitus with hypoglycemia without coma (principal); I13.10 Hypertensive heart and chronic kidney disease without heart failure, with stage 1 through stage 4 chronic kidney disease, or unspecified chronic kidney disease; E11.22 Type 2 diabetes mellitus with diabetic chronic kidney disease; N18.3 Chronic kidney disease, stage 3 (moderate); I48.2 Chronic atrial fibrillation; I25.10 Atherosclerotic heart disease of native coronary artery without angina pectoris; E78.2 Mixed hyperlipidemia; I77.89 Other specified disorders of arteries and arterioles; F41.8 Other specified anxiety disorders; F43.0 Acute stress reaction; E87.5 Hyperkalemia; K21.9 Gastro-esophageal reflux disease without esophagitis; Z79.01 Long term (current) use of anticoagulants; Z79.4 Long term (current) use of insulin
CPT/HCPCS: 36415 ×2; 80048 ×2; 81003; 82962 ×12; 83036; 83735; 84132 ×3; 84443; 85025 ×2; 85610 ×2; 96374; 97116; 97163; 99285; G0378 ×2; J1650

== ENCOUNTER 2018-01-08 21:51 | Inpatient (IN) | payer OTHER ==
--- OUTSIDE RECORDS SUMMARY | 2018-01-08 21:53 | XMS REPORT ---
:1940 Author Organization eClinicalWorks Care Team Providers Name Role Phone Valentín [facility] Provider Role Unavailable Allergies No [...] Start End Date Status Dosage System Date [facility] 25027112627 200 UNIT/ML Active 70 UNITS FlexTouch Subcutaneous DAILY Increase 2 untis after 3 day if BS are high Results No Known Results Summary Purpose eClinicalWorks Submission
--- OUTSIDE RECORDS SUMMARY | 2018-01-08 21:53 | XMS REPORT ---
[...] Status Dosage System Date Date FreeStyle Lite [facility] 40849775092 0 Active CHECK Test BLOOD SUGAR TWICE DAILY Lipitor [facility] 64535782194 40 MG Active 1 TAB(S) ONCE A DAY ORALLY Losartan [facility] 07568792616 100 MG Orally Active 1 tablet Potassium Once a day Meclizine HCl [facility] 08240099106 25 Active CHEW AND SWALLOW 1 TABLET THREE TIMES DAILY Flonase Allergy [facility] 79110502315 50 MCG/ACT Active 1 spray in Relief Nasally Once a each day nostril Ferrous Sulfate [facility] 98899869494 325 (65 Fe) MG Active 1 tablet Orally Once a day Tresiba FlexTouch [facility] 20501645843 200 UNIT/ML Active 70 UNITS Subcutaneous DAILY Increase 2 untis after 3 day if BS are high Citalopram [facility] 85218079131 20 MG Orally Active 1 tablet Hydrobromide Once a day Chlorthalidone [facility] 35733036740 25 MG Orally Active 1 tablet Once a day in the morning with food Tresiba FlexTouch [facility] 35573685983 200 UNIT/ML Active not Subcutaneous defined Anastrozole [facility] 95680758262 1 MG Orally Active 1 tablet Once a day Topamax [facility] 15678366034 50 MG Orally Active 1 tablet Once a day Protonix [facility] 88349865198 40 MG Active 1 TAB(S) ONCE A DAY ORALLY Lipitor [facility] 39604249955 40 MG Orally Active 1 tablet Once a day Coumadin [facility] 17417533029 2 MG Orally Active 1 tablet Once a day BD Pen Needle [facility] 47715571726 0 Active USE DAILY Short U/F Citalopram [facility] 11252920267 20 Active TAKE 1 Hydrobromide TABLET BY MOUTH EVERY DAY Protonix [facility] 46447190946 40 MG Orally Active 1 tablet Once a day Results No Known Results Summary Purpose eClinicalWorks Submission
--- OUTSIDE RECORDS SUMMARY | 2018-01-08 21:53 | XMS REPORT ---
:1940 Author Organization eClinicalWorks Care Team Providers Name Role Phone Laura, [facility] Provider Role Unavailable Allergies, Adverse Reactions, [...] End Status Dosage System Date Date Citalopram [facility] 23496206049 20 MG Orally Active 1 tablet Hydrobromide Once a day Coumadin [place] 12958885425 2 MG Orally Active 1 tablet Once a day Lipitor ND 92131022557 40 MG Active 1 TAB(S) ONCE A DAY ORALLY Meclizine HCl ND 64238463503 25 MG Orally Active 1 tablet Three times a day Ferrous Sulfate ND 21718978860 325 (65 Fe) MG May Active 1 tablet Orally Once a 2017 day Tresiba FlexTouch ND 75507064217 200 UNIT/ML Active not Subcutaneous defined Chlorthalidone ND 50774217663 25 MG Orally Active 1 tablet Once a day in the morning with food FreeStyle Lite [facility] 04856297092 0 Active CHECK Test BLOOD SUGAR TWICE DAILY Flonase Allergy [facility] 18708024340 50 MCG/ACT Active 1 spray in Relief Nasally Once a each day nostril Meclizine HCl [facility] 57277548056 25 Active CHEW AND SWALLOW 1 TABLET THREE TIMES DAILY Anastrozole [facility] 06006526381 1 MG Orally Active 1 tablet Once a day Protonix [facility] 05887524851 40 MG Active 1 TAB(S) ONCE A DAY ORALLY Losartan [facility] 52858573232 100 MG Orally Active 1 tablet Potassium Once a day Topamax [facility] 71829467516 50 MG Orally Active 1 tablet Once a day Protonix [facility] 88950763037 40 MG Orally Active 1 tablet Once a day Tresiba FlexTouch [facility] 70703356405 200 UNIT/ML Active 40 UNITS DAILY Results No Known Results Summary Purpose eClinicalWorks Submission
--- OUTSIDE RECORDS SUMMARY | 2018-01-08 21:54 | XMS REPORT ---
:1940 Author Organization eClinicalWorks Care Team Providers Name Role Phone Valentín [facility] Provider Role Unavailable Allergies No Known Allergies [...] Status Dosage System Date Date Ferrous Sulfate [facility] 02682771820 325 (65 Fe) MG Active 1 tablet Orally Once a day FreeStyle Lite [facility] 51629015645 0 Active CHECK BLOOD Test SUGAR TWICE DAILY Citalopram [facility] 01296299181 20 Active TAKE 1 Hydrobromide TABLET BY MOUTH EVERY DAY Meclizine HCl [facility] 61965552805 25 Active CHEW AND SWALLOW 1 TABLET THREE TIMES DAILY Lipitor ND 95295601648 40 MG Orally Active 1 tablet Once a day Flonase Allergy ND 96732523157 50 MCG/ACT Active 1 spray in Relief Nasally Once a each day nostril Pantoprazole [facility] 13411077234 40 Active TAKE 1 Sodium TABLET BY MOUTH EVERY DAY FreeStyle [facility] 17836657449 - Oct 11, Active as directed Lancets 2018 HydrALAZINE HCl [facility] 91745478308 25 MG Orally Active 1 tablet Two times a day with food Lyrica [facility] 96018340417 50 MG Orally Oct 30, Active 1 capsule Twice a day 2017 BD Pen Needle [facility] 96374789103 0 Active USE DAILY Short U/F Anastrozole [facility] 56195990386 1 MG Orally Active 1 tablet Once a day Topamax [facility] 85540416076 50 MG Orally Active 1 tablet Once a day Coumadin [facility] 94700700819 2 MG Orally Active 1 tablet Once a day Tresiba [facility] 30831908189 200 UNIT/ML Active INJECT 70 FlexTouch UNITS UNDER THE SKIN EVERY DAY INCREASE 2 UNITS AFTER 3 DAYS IF BLOOD SUGAR IS HIGH Results No Known Results Summary Purpose eClinicalWorks Submission
--- OUTSIDE RECORDS SUMMARY | 2018-01-08 21:54 | XMS REPORT ---
[...] Status Dosage System Date Date Anastrozole [facility] 19371838161 1 MG Orally Active 1 tablet Once a day Lipitor [facility] 48386425884 40 MG Orally Active 1 tablet Once a day Protonix [facility] 65317824282 40 MG Orally Active 1 tablet Once a day Topamax [facility] 05310247654 50 MG Orally Active 1 tablet Once a day Ferrous Sulfate [facility] 07533127836 325 (65 Fe) MG Active 1 tablet Orally Once a day Lipitor [facility] 15737856663 40 Active 1 TAB(S) ONCE A DAY ORALLY Tresiba FlexTouch [facility] 14148175610 200 UNIT/ML Active 70 UNITS Subcutaneous DAILY Increase 2 untis after 3 day if BS are high HydrALAZINE HCl [facility] 34135497487 25 MG Orally Active 1 tablet Two times a day with food Tresiba FlexTouch [facility] 13615468651 200 UNIT/ML Active not Subcutaneous defined Tresiba FlexTouch [facility] 57964133848 200 UNIT/ML Active INJECT 70 UNITS UNDER THE SKIN EVERY DAY INCREASE 2 UNITS AFTER 3 DAYS IF BLOOD SUGAR IS HIGH FreeStyle Lite [facility] 74685806336 0 Active CHECK Test BLOOD SUGAR TWICE DAILY Losartan [facility] 55799671322 100 MG Orally Inactive 1 tablet Potassium Once a day Pantoprazole [facility] 10110086951 40 Active TAKE 1 Sodium TABLET BY MOUTH EVERY DAY Citalopram [facility] 89425744291 20 Active TAKE 1 Hydrobromide TABLET BY MOUTH EVERY DAY Meclizine HCl [facility] 44088018682 25 Active CHEW AND SWALLOW 1 TABLET THREE TIMES DAILY Citalopram [facility] 81046578840 20 MG Orally Active 1 tablet Hydrobromide Once a day Coumadin [facility] 42284764281 2 MG Orally Active 1 tablet Once a day Lipitor [facility] 26141107494 40 MG Active 1 TAB(S) ONCE A DAY ORALLY Chlorthalidone [facility] 72906787323 25 MG Orally Inactive 1 tablet Once a day in the morning with food Flonase Allergy [facility] 36002098810 50 MCG/ACT Active 1 spray in Relief Nasally Once a each day nostril Protonix [facility] 03985351343 40 MG Active 1 TAB(S) ONCE A DAY ORALLY BD Pen Needle [facility] 71243140874 0 Active USE DAILY Short U/F Results No Known Results Summary Purpose eClinicalWorks Submission
--- OUTSIDE RECORDS SUMMARY | 2018-01-08 21:54 | XMS REPORT ---
:1940 Author Organization eClinicalWorks Care Team Providers Name Role Phone Valentín [facility] Provider Role Unavailable Allergies No Known [...] Start End Date Status Dosage System Date [facility] 11166690460 - Oct 11, Active as directed Lancets 2018 Results No Known Results Summary Purpose [facility] Submission
[2018-01-08 23:06] LABS: Hematocrit 25.1 % (36.0-45.0); MCH 31.6 pg (27.0-35.0); MCV 97.4 fL (80-100); RBC Red Blood Cell Count 2.58 M/uL (3.86-4.86)
[2018-01-08 23:07] LABS: Absolute Monocytes 0.3 K/uL (0.1-1.3); Absolute Neutrophil 7.9 K/uL (1.8-8.0); Basophils % 0.8 % (0-1.3); Eosinophils % 0.9 % (0-4.4); Lymphocytes % 10.4 % (15.3-44.8); Monocytes % 3.4 % (3.3-12.3)
[2018-01-08 23:20] LABS: ALT/SGPT 16 U/L (12-78); AST/SGOT 15 U/L (15-37); Albumin 2.8 g/dL (3.4-5.0); Alkaline Phosphatase 153 U/L (45-117); BUN Blood Urea Nitrogen 59 mg/dL (7-18); Bicarbonate 21 mmol/L (21-32); Bilirubin Direct 0.1 mg/dL (0-0.2); Bilirubin Total 0.4 mg/dL (0.2-1.0); CKMB Creatine Kinase MB 3.1 ng/mL (0.3-3.6); Creatine Phosphokinase 95 U/L (26-192); Glucose Level 240 mg/dL (74-106); Lipase 114 U/L (73-393); Magnesium 1.8 mg/dL (1.8-2.4); NT PRO-BNP 3486 pg/mL (<450); Protein, Total 6.7 g/dL (6.4-8.2); Sodium Level 142 mmol/L (136-145); Troponin (Emerg Dept Use Only) < 0.02 ng/mL (0.0-0.045)
[2018-01-08 23:24] LABS: Potassium 6.7 mmol/L (3.5-5.1)
[2018-01-09] MEDS ORDERED: D50W 25 GM/50 ML SYRINGE IV ONE (00:44)
[2018-01-09] MEDS ORDERED: NITROGLYCERIN 0.4 MG/TAB SL ONE (00:44)
[2018-01-09] MEDS ORDERED: INSULIN -REGULAR HUMAN 50 UNIT/0.5 ML ML ONE (00:44)
[2018-01-09] MEDS ORDERED: ALBUTEROL 2.5 MG/3 ML NEB SOL ONE (00:44)
[2018-01-09] MEDS ORDERED: FUROSEMIDE 40 MG/4 ML VIAL ONE (01:03)
--- NOTE | 2018-01-09 01:16 | ER ---
Nurse's Notes [facility] Name: Sarah Garcia Age: 77 yrs Sex: Female : 1940 Arrival Date: 01/08/2018 Time: 21:55 Bed 27 Private MD: Diagnosis: Acute CHF;Hyperkalemia;Anemia;hyperglycemia;acute on chronic renal insufficiency;supratherapeutic INR Presentation: 01/08 21:57 Presenting complaint: EMS states: patient complaining of hypertension, chest pain and kr2 abdominal pain since Sunday. Reports she is having weakness today. She has a history of hypertension and diabetes. Transition of care: patient was not received from another setting of care. Onset of symptoms was January 06, 2018. Risk Assessment: Do you want to hurt yourself or someone else? Patient reports no desire to harm self or others. Initial Sepsis Screen: Does the patient meet any 2 criteria? No. Patient's initial sepsis screen is negative. Does the patient have a suspected source of infection? No. Patient's initial sepsis screen is negative. Care prior to arrival: placed on oxygen by EMS due to saturation on room air of 86%. 21:57 Method Of Arrival: EMS: [facility] kr2 21:57 Acuity: CHRISS 3 kr2 Triage Assessment: 22:02 General: Appears in no apparent distress. uncomfortable, well groomed, well developed, kr2 well nourished, Behavior is calm, cooperative. Pain: Complains of pain in head, chest, abdomen Pain does not radiate. Pain currently is 8 out of 10 on a pain scale. Quality of pain is described as aching, tender, Is continuous, Alleviated by nothing. Aggravated by increased activity, repositioning. EENT: Nares are clear bilaterally Oral mucosa is moist. Neuro: Level of Consciousness is awake, alert, obeys commands, Oriented to person, place, situation. Cardiovascular: Patient's skin is warm and dry. Rhythm is regular. Respiratory: Reports shortness of breath at rest on exertion Airway is patent Respiratory effort is even, unlabored, Respiratory pattern is regular, symmetrical, Onset: The symptoms/episode began/occurred Sunday, the patient has mild shortness of breath. GI: Abdomen is round non-distended, Bowel sounds present X 4 quads. Abd is soft in left upper quadrant, right lower quadrant and left lower quadrant Abdomen is tender to palpation X 4 quads. Abd is rigid in right upper quadrant Reports nausea. : Denies burning with urination. Derm: Skin is intact, is fragile, with poor turgor Skin is dry, Skin is pale, pink, Skin temperature is warm. Musculoskeletal: Circulation, motion, and sensation intact. Range of motion: limited in all extremities. Historical: - Allergies: 22:01 QUINOLONES; kr2 - Home Meds: 22:23 anastrozole 1 mg Oral tab 1 tab once daily [Active]; aspirin 81 mg Oral chew 1 tab once kr2 daily [Active]; atorvastatin 40 mg Oral tab 1 tab once daily [Active]; chlorthalidone 25 mg Oral tab 1 tab once daily [Active]; citalopram 20 mg tab 1 tab once daily [Active]; ferrous sulfate 325 mg (65 mg iron) Oral tab [Active]; meclizine 25 mg oral tab [Active]; pantoprazole 40 mg Oral TbEC 1 tab once daily [Active]; Tresiba FlexTouch U-200 200 unit/mL (3 mL) subcutaneous inpn 58 unit nightly [Active]; alprazolam 0.25 mg Oral tab PRN [Active]; Altace 2.5 mg Oral cap once daily [Active]; Ambien Oral [Active]; metoprolol succinate 100 mg oral Tb24 0.5 tab once daily [Active]; sitagliptin oral 30mg oral 1 tab once daily [Active]; Vitamin D3 oral oral [Active]; - PMHx: 22:01 Atrial Fib; Diabetes - IDDM; GERD; High Cholesterol; Hypertension; Myocardial kr2 infarction; 22:25 Cancer, Breast; kr2 - PSHx: 22:01 stents; kr2 22:25 Breast Cancer Surgery; kr2 - Immunization history:: Adult Immunizations unknown. - Social history:: Smoking status: Patient/guardian denies using tobacco. - Ebola Screening: : No symptoms or risks identified at this time. - Family history:: not pertinent. - Hospitalizations: : No recent hospitalization is reported. Screenin:06 Abuse screen: Denies threats or abuse. Denies injuries from another. Nutritional kr2 screening: No deficits noted. Tuberculosis screening: No symptoms or risk factors identified. Fall Risk Gait- Weak (10 pts.). Assessment: 22:08 General: See triage assessment. Cardiovascular: Rhythm is regular. Respiratory: Airway kr2 is patent Respiratory effort is even, unlabored, Respiratory pattern is regular, symmetrical, Breath sounds are diminished bilaterally. 01/09 00:24 Reassessment: Patient appears in no apparent distress at this time. Patient and/or kr2 family updated on plan of care and expected duration. Pain level reassessed. Patient sleeping at this time, son is at bedside. 00:58 Reassessment: pt and family informed of admission status. provider notified of pt ak1 vitals with reaffirmed orders to give SL nitro. provider notified of new vitals post SL nitro with reaffirmed orders to give IV 40mg Lasix. 01:05 Reassessment: provider notified of new vital signs, will hold lasix until further ak1 orders. 01:25 Reassessment: pt Son, Fiorella Garcia, can be reached at [phone]. . ak1 01:59 Reassessment: Patient appears in no apparent distress at this time. No changes from ak1 previously documented assessment. Patient states symptoms have improved. pt c/o back pain from being on the ER stretcher. pt is drowsy but arousable. . Vital Signs: 01/08 22:05 BP 156 / 76; Pulse 75; Resp 19; Temp 98; Pulse Ox 96% on 2 lpm NC; Weight 86.64 kg; kr2 Height 5 ft. 1 in. (154.94 cm); Pain 8/10; 23:15 BP 126 / 53; Pulse 69; Resp 16; Pulse Ox 100% on 2 lpm NC; mt 01/09 00:24 BP 130 / 53; Pulse 72; Resp 19; Pulse Ox 97% on 2 lpm NC; kr2 00:49 BP 114 / 38; Pulse 73; Resp 23; Temp 98.2; Pulse Ox 97% on 100% Nebulizer Mask; ak1 01:00 BP 91 / 50; Pulse 72; Resp 21; Pulse Ox 95% on 2 lpm NC; ak1 01:19 BP 97 / 48; Pulse 72; Resp 18; Pulse Ox 96% on 2 lpm NC; ak1 01:36 BP 121 / 47; Pulse 75; Resp 17; Temp 98.2; Pulse Ox 96% on 2 lpm NC; ak1 02:00 BP 101 / 47; Pulse 75; Resp 15; Pulse Ox 96% on 2 lpm NC; ak1 02:08 BP 119 / 44; Pulse 72; Resp 18; Temp 98.2; Pulse Ox 100% on 2 lpm NC; ak1 02:18 BP 104 / 53; Pulse 73; Resp 19; Pulse Ox 100% on 2 lpm NC; ak1 02:36 BP 120 / 57; Pulse 73; Resp 15; Pulse Ox 100% on 2 lpm NC; ak1 02:56 BP 110 / 39; Pulse 73; Resp 16; Temp 98.2; Pulse Ox 100% on 2 lpm NC; ak1 01/08 22:05 Body Mass Index 36.09 (86.64 kg, 154.94 cm) kr2 ED Course: 01/08 21:55 Patient arrived in ED. 22:01 Triage completed. kr2 22:06 Arm band placed on left wrist. kr2 22:07 Patient has correct armband on for positive identification. Bed in low position. Call kr2 light in reach. Side rails up X2. Adult w/ patient. environmental monitoring specialist on. Pulse ox on. NIBP on. Door closed. Warm blanket given. Head of bed elevated. 22:13 Tayo Mccallum MD is Attending Physician. wa 22:40 Radiology exam delayed due to IV insertion attempt and/or patient not having ml appropriate IV at this time. 22:51 Inserted saline lock: 22 gauge in left antecubital area, using aseptic technique. Blood mt collected. 23:21 X-ray completed. Portable x-ray completed in exam room. Patient tolerated procedure kw well. 23:23 XRAY CXR (1 view) In Process Unspecified. EDMS 23:26 Notified ED physician of other new verbal order for repeat K+ level. ak1 23:39 Notified ED physician of a critical lab result(s). INR of 5.10. 01/09 00:18 Notified ED physician of a critical lab result(s). Potassium 6.5. 00:26 Taya Chopra, MARANDA is Primary Nurse. ak1 00:26 No provider procedures requiring assistance completed. Patient admitted, IV remains in ak1 place. 01:13 Daniel Hoffman MD is Hospitalizing Provider. wa 01:24 Served as a taxation consultant during rectal exam. ak1 Administered Medications: 00:44 Drug: Nitroglycerin 0.4 mg Route: Sublingual; ak1 00:48 Follow up: Response: No adverse reaction ak1 00:44 Drug: D50W 50 ml Route: IVP; Site: left antecubital; ak1 00:49 Follow up: Response: No adverse reaction ak1 00:44 Drug: Insulin Regular Human 10 units {Co-Signature: fc (Rebeca Buck RN).} Route: ak1 IVP; Site: left antecubital; 00:49 Follow up: Response: No adverse reaction ak1 00:47 Drug: Albuterol 2.5 mg Route: Inhalation; ak1 02:56 Not Given (vitals not in paramaters, provider notified. ): Lasix 40 mg IVP once ak1 Point of Care Testing: Blood Glucose: 01:36 Blood Glucose: 240 mg/dL; ak1 Ranges: Outcome: 00:50 Condition: stable ak1 00:50 Instructed on the need for admit. 01:16 Decision to Hospitalize by Provider. sc 02:54 Admitted to Tele accompanied by tech, via stretcher, room 211, with oxygen, with chart, ak1 Report called to Iker LOW 03:04 Patient left the ED. ak1 Signatures: Dispatcher [employer] EDMS Rebeca Buck RN RN fc Lopez, Melissa ml Whitley, Kimberlee kw Krenek, Amber RN RN [id number] Sulema Cannon mt, William, MD MD wa Reaves, Karey, RN RN kr2 Felicia Chretien RN fc Corrections: (The following items were deleted from the chart) 01/08 22:08 22:02 Cardiovascular: Capillary refill < 3 seconds in bilateral fingers Patient's skin kr2 is warm and dry. kr2 22:08 22:02 Derm: Skin is intact, is healthy with good turgor, Skin is pink, warm \T\ dry. kr2 kr2 22:09 22:06 Respiratory: Airway is patent Respiratory effort is even, unlabored, Respiratory kr2 pattern is regular, symmetrical, Breath sounds are diminished the patient has mild shortness of breath kr2
--- NOTE | 2018-01-09 01:17 | EDPHYS ---
Physician Documentation [facility] Name: Sarha Garcia Age: 77 yrs Sex: Female : 1940 Arrival Date: 01/08/2018 Time: 21:55 Bed 27 Private MD: ED Physician Tayo Mccallum HPI: 01/09 01:03 This 77 yrs old Female presents to ER via EMS with complaints of Shortness Of wa Breath. 01:03 The patient has shortness of breath at rest, with light activity. Onset: The wa symptoms/episode began/occurred 5 day(s) ago. Duration: The symptoms are continuous, and are steadily getting worse. The patient's shortness of breath is aggravated by exertion, is alleviated by rest. Associated signs and symptoms: Pertinent negatives: chest pain, non-productive cough, productive cough, dizziness, fever, loss of consciousness, numbness in extremities, visual changes, vomiting. Severity of symptoms: At their worst the symptoms were moderate in the emergency department the symptoms are unchanged. The patient has experienced similar episodes in the past, a few times. The patient has not recently seen a physician. PMD is Dr. Laura. Historical: - Allergies: 01/08 22:01 QUINOLONES; kr2 - Home Meds: 22:23 anastrozole 1 mg Oral tab 1 tab once daily [Active]; aspirin 81 mg Oral chew 1 tab once kr2 daily [Active]; atorvastatin 40 mg Oral tab 1 tab once daily [Active]; chlorthalidone 25 mg Oral tab 1 tab once daily [Active]; citalopram 20 mg tab 1 tab once daily [Active]; ferrous sulfate 325 mg (65 mg iron) Oral tab [Active]; meclizine 25 mg oral tab [Active]; pantoprazole 40 mg Oral TbEC 1 tab once daily [Active]; Tresiba FlexTouch U-200 200 unit/mL (3 mL) subcutaneous inpn 58 unit nightly [Active]; alprazolam 0.25 mg Oral tab PRN [Active]; Altace 2.5 mg Oral cap once daily [Active]; Ambien Oral [Active]; metoprolol succinate 100 mg oral Tb24 0.5 tab once daily [Active]; sitagliptin oral 30mg oral 1 tab once daily [Active]; Vitamin D3 oral oral [Active]; - PMHx: 22:01 Atrial Fib; Diabetes - IDDM; GERD; High Cholesterol; Hypertension; Myocardial kr2 infarction; 22:25 Cancer, Breast; kr2 - PSHx: 22:01 stents; kr2 22:25 Breast Cancer Surgery; kr2 - Immunization history:: Adult Immunizations unknown. - Social history:: Smoking status: Patient/guardian denies using tobacco. - Ebola Screening: : No symptoms or risks identified at this time. - Family history:: not pertinent. - Hospitalizations: : No recent hospitalization is reported. ROS: 01/09 01:05 Constitutional: Negative for fever, chills, and weight loss, Eyes: Negative for injury, wa pain, redness, and discharge, ENT: Negative for injury, pain, and discharge, Neck: Negative for injury, pain, and swelling, Abdomen/GI: Negative for abdominal pain, nausea, vomiting, diarrhea, and constipation, Back: Negative for injury and pain, : Negative for injury, bleeding, discharge, and swelling, MS/Extremity: Negative for injury and deformity, Skin: Negative for injury, rash, and discoloration, Neuro: Negative for headache, weakness, numbness, tingling, and seizure, Psych: Negative for depression, anxiety, suicide ideation, homicidal ideation, and hallucinations. Cardiovascular: Positive for edema, Negative for chest pain, orthopnea, palpitations, paroxysmal nocturnal dyspnea. Respiratory: Positive for dyspnea on exertion, shortness of breath, at rest. Negative for hemoptysis, orthopnea. Exam: :06 Head/Face: Normocephalic, atraumatic. Eyes: Pupils equal round and reactive to light, wa extra-ocular motions intact. Lids and lashes normal. Conjunctiva and sclera are non-icteric and not injected. Cornea within normal limits. Periorbital areas with no swelling, redness, or edema. ENT: Nares patent. No nasal discharge, no septal abnormalities noted. Tympanic membranes are normal and external auditory canals are clear. Oropharynx with no redness, swelling, or masses, exudates, or evidence of obstruction, uvula midline. Mucous membranes moist. Neck: Trachea midline, no thyromegaly or masses palpated, and no cervical lymphadenopathy. Supple, full range of motion without nuchal rigidity, or vertebral point tenderness. No Meningismus. Chest/axilla: Normal chest wall appearance and motion. Nontender with no deformity. No lesions are appreciated. Abdomen/GI: Soft, non-tender, with normal bowel sounds. No distension or tympany. No guarding or rebound. No evidence of tenderness throughout. Back: No spinal tenderness. No costovertebral tenderness. Full range of motion. Neuro: Awake and alert, GCS 15, oriented to person, place, time, and situation. Cranial nerves II-XII grossly intact. Motor strength 5/5 in all extremities. Sensory grossly intact. Cerebellar exam normal. Normal gait. Psych: Awake, alert, with orientation to person, place and time. Behavior, mood, and affect are within normal limits. 01:06 Constitutional: The patient appears alert, obese. 01:06 Cardiovascular: Rate: normal, Rhythm: regular, Pulses: no pulse deficits are wa appreciated, Heart sounds: normal, Edema: 2+ edema to level of left ankle, left foot, left toes, right ankle, right foot and right toes, JVD: is not appreciated. 01:06 Respiratory: the patient does not display signs of respiratory distress, Respirations: normal, Breath sounds: rhonchi, that are moderate, are scattered, Respiratory rate: normal Vital Signs: 04 22:05 BP 156 / 76; Pulse 75; Resp 19; Temp 98; Pulse Ox 96% on 2 lpm NC; Weight 86.64 kg; kr2 Height 5 ft. 1 in. (154.94 cm); Pain 8/10; 23:15 BP 126 / 53; Pulse 69; Resp 16; Pulse Ox 100% on 2 lpm NC; mt 12/05 00:24 BP 130 / 53; Pulse 72; Resp 19; Pulse Ox 97% on 2 lpm NC; kr2 00:49 BP 114 / 38; Pulse 73; Resp 23; Temp 98.2; Pulse Ox 97% on 100% Nebulizer Mask; ak1 01:00 BP 91 / 50; Pulse 72; Resp 21; Pulse Ox 95% on 2 lpm NC; ak1 01:19 BP 97 / 48; Pulse 72; Resp 18; Pulse Ox 96% on 2 lpm NC; ak1 01:36 BP 121 / 47; Pulse 75; Resp 17; Temp 98.2; Pulse Ox 96% on 2 lpm NC; ak1 02:00 BP 101 / 47; Pulse 75; Resp 15; Pulse Ox 96% on 2 lpm NC; ak1 02:08 BP 119 / 44; Pulse 72; Resp 18; Temp 98.2; Pulse Ox 100% on 2 lpm NC; ak1 02:18 BP 104 / 53; Pulse 73; Resp 19; Pulse Ox 100% on 2 lpm NC; ak1 02:36 BP 120 / 57; Pulse 73; Resp 15; Pulse Ox 100% on 2 lpm NC; ak1 02:56 BP 110 / 39; Pulse 73; Resp 16; Temp 98.2; Pulse Ox 100% on 2 lpm NC; ak1 01/08 22:05 Body Mass Index 36.09 (86.64 kg, 154.94 cm) kr2 MDM: 01/08 22:13 Patient medically screened. or 01/09 01:07 Differential diagnosis: concern for CHF exacerbation. will eval and reassess. Data or reviewed: lab test result(s), EKG, radiologic studies. Test interpretation: by ED physician or midlevel provider: EKG: HR 70. sinus. PVCs. noted Q waves in inferior leads. diffuse ST-T changes.. 01:09 Test interpretation: by ED physician or midlevel provider: Labs noted for hyperkalemia wa at 6.5. hyperglycemia at 240. renal insufficiency at 59/2.3. anemia at 8.2 and 25.1. Response to treatment: the patient's symptoms have mildly improved after treatment. Physician consultation: Daniel Hoffman MD. Admission orders: after a detailed discussion of the patient's condition and case, the admit orders are written by me. ED course: will treat hyperkalemia. consider nitro/lasix for CHF. BNP 3486. noted anemia 8.2/25.1. needs anemia work up as H/H 10.1 and 30.6 on 11/25/17. 01:45 Test interpretation: by ED physician or midlevel provider: stool guaiac: faintly wa positive. 02:27 Test interpretation: by ED physician or midlevel provider: repeat K post hyperkalemia or treatment 5.1. 01/08 22:32 Order name: Blood Culture Adult (2) wa 01/08 22:32 Order name: BMP 01/08 22:32 Order name: CBC with Diff; Complete Time: 00:07 01/08 22:32 Order name: Ckmb; Complete Time: 00:07 01/08 22:32 Order name: CPK; Complete Time: 00:08 or 01/08 22:32 Order name: D-Dimer; Complete Time: 00:08 or 01/08 22:32 Order name: Hepatic Function; Complete Time: 00:07 or 01/08 22:32 Order name: Lipase; Complete Time: 00:08 or 01/08 22:32 Order name: Magnesium; Complete Time: 00:08 or 01/08 22:32 Order name: NT PRO-BNP; Complete Time: 00:07 or 01/08 22:32 Order name: PT-INR; Complete Time: 00:07 or 01/08 22:32 Order name: Ptt, Activated; Complete Time: 00:07 or 01/08 22:32 Order name: Troponin (emerg Dept Use Only); Complete Time: 00:08 or 01/08 22:33 Order name: Blood Culture EDOH 01/08 22:32 Order name: XRAY CXR (1 view) or 01/08 22:32 Order name: EKG; Complete Time: 22:34 or 01/08 22:32 Order name: Cardiac monitoring; Complete Time: 22:51 or 01/08 22:32 Order name: EKG - Nurse/Tech; Complete Time: 22:51 or 01/08 22:32 Order name: IV Saline Lock; Complete Time: 22:51 or 01/08 22:32 Order name: Labs collected and sent; Complete Time: 22:51 or 01/08 22:32 Order name: O2 Per Protocol; Complete Time: 22:51 or 01/08 22:33 Order name: Basic Metabolic Panel; Complete Time: 00:07 [facility] 01/09 00:24 Interpretation: CO2 21. or 01/08 23:27 Order name: Potassium; Complete Time: 01:01 ak 01/09 01:17 Order name: Urine Microscopic Only or 01/09 01:27 Order name: BMP; Complete Time: 02:23 or 01/08 22:32 Order name: O2 Sat Monitoring; Complete Time: 22:51 or 01/09 01:27 Order name: Accucheck Blood Glucose; Complete Time: 01:36 or Administered Medications: 00:44 Drug: Nitroglycerin 0.4 mg Route: Sublingual; ak1 00:48 Follow up: Response: No adverse reaction ak1 00:44 Drug: D50W 50 ml Route: IVP; Site: left antecubital; ak1 00:49 Follow up: Response: No adverse reaction ak1 00:44 Drug: Insulin Regular Human 10 units {Co-Signature: fc (Rebeca Buck RN).} Route: ak1 IVP; Site: left antecubital; 00:49 Follow up: Response: No adverse reaction ak1 00:47 Drug: Albuterol 2.5 mg Route: Inhalation; ak1 02:56 Not Given (vitals not in paramaters, provider notified. ): Lasix 40 mg IVP once ak1 Point of Care Testing: Blood Glucose: 01:36 Blood Glucose: 240 mg/dL; ak1 Ranges: Critical Glucose Levels:Adult <50 mg/dl or >400 mg/dl <40 mg/dl or >180 mg/dl Disposition: 01:17 Critical Care:. or Disposition: 01/09/18 01:16 Hospitalization ordered by Daniel Hoffman for Inpatient Admission. Preliminary diagnosis are Acute CHF, Hyperkalemia, Anemia, hyperglycemia, acute on chronic renal insufficiency, supratherapeutic INR. - Bed requested for Telemetry/MedSurg (Inpatient). - Status is Inpatient Admission. ak1 - Condition is Stable. - Problem is an acute exacerbation. - Symptoms have improved. UTI on Admission? No Critical care time excluding procedures: 01:17 Critical care time: Bedside Care: 15 minutes, Consultation: 5 minutes, Family or Intervention: 10 minutes. Total time: 30 minutes Signatures: Dispatcher [employer] EDMS Taya Chopra RN RN ak1 Lashawn Adams RN RN Tayo Mccallum MD MD wa Reaves, Karey RN RN 2 Rebeca barr Corrections: (The following items were deleted from the chart) 02:43 01:16 Hospitalization Ordered by Daniel Hoffman MD for Inpatient Admission. Preliminary diagnosis is Acute CHF; Hyperkalemia; Anemia; hyperglycemia; acute on chronic renal insufficiency; supratherapeutic INR. Bed requested for Telemetry/MedSurg (Inpatient). Status is Inpatient Admission. Condition is Stable. Problem is an acute exacerbation. Symptoms have improved. UTI on Admission? No. or 02:55 01:17 Urine Dipstick-Ancillary ordered. or ak1 03:04 02:43 01/09/2018 01:16 Hospitalization Ordered by Daniel Hoffman MD for Inpatient ak1 Admission. Preliminary diagnosis is Acute CHF; Hyperkalemia; Anemia; hyperglycemia; acute on chronic renal insufficiency; supratherapeutic INR. Bed requested for Telemetry/MedSurg (Inpatient). Status is Inpatient Admission. Condition is Stable. Problem is an acute exacerbation. Symptoms have improved. UTI on Admission? No. cg
[2018-01-09 02:16] LABS: Potassium 5.1 mmol/L (3.5-5.1)
[2018-01-09] MEDS ORDERED: ONDANSETRON 4 MG/2 ML VIAL IV PRN (02:45)
[2018-01-09] MEDS ORDERED: NA CHLORIDE 0.9% 1,000 ML IV SCH (02:45)
[2018-01-09] MEDS: IPRATROPIUM BROM 0.5MG/2.5ML NEB SCH ×4 (02:45→19:32)
[2018-01-09] MEDS ORDERED: MORPHINE 4 MG/ML SYR IV PRN (02:45)
--- NOTE | 2018-01-09 06:30 | RAD REPORT ---
EXAM DESCRIPTION: RAD - Chest Single View - 01/08/2018 11:23 pm CLINICAL HISTORY: Chest pain, abdominal pain, shortness of breath COMPARISON: November 23 TECHNIQUE: AP portable chest image was obtained 2310 hours . FINDINGS: Lung volumes are low. Interstitial markings are diffusely prominent. No one focal area of consolidation. Mild cardiomegaly is present. There is vascular engorgement seen. Masslike density in the right hilum and mediastinum noted. This is increased over comparison. Shallow inspiration, rotation and vascular tortuosity likely account for this finding. However, mass density or adenopathy cannot be excluded. When tolerable, CT chest imaging would be recommended. No pneumothorax. Right pleural effusion is likely present. No acute bony abnormality seen. No acute aortic findings suspected. IMPRESSION: Moderate severity CHF/ volume overload pattern. Right hilar and right mediastinal masslike density may simply be summation of vasculature and normal soft tissues accentuated by the shallow inspiration and rotation. However, mass density or lymphadeno lorie cannot be excluded and a follow-up CT chest with contrast is recommended when tolerable by the patient.
[2018-01-09] MEDS ORDERED: INFLUENZA VACCINE (for 3y+) 0.5 ML DOSE IMVAC ONE (08:00)
[2018-01-09] MEDS ORDERED: PNEUMOCOCCAL VACCINE 0.5 ML IMVAC ONE (08:00)
--- NOTE | 2018-01-09 08:04 | EKG ---
Test Date: 2018-01-08 Test Time: 21:57:16 Coroner Technician: MYRNA MEASUREMENT RESULTS: Intervals: Rate: 70 NV: 172 QRSD: 72 QT: 396 QTc: 427 [place]: P: 53 NV: 172 QRS: 38 T: 70 INTERPRETIVE STATEMENTS: Sinus rhythm with premature supraventricular complexes Possible Inferior infarct, age undetermined Abnormal ECG Compared to ECG 11/23/2017 12:59:28 Atrial premature complex(es) now present Myocardial infarct finding still present Electronically Signed On 01-09-18 08:04:01 PLATE GLASS INSTALLER by Jefe Ewing
[2018-01-09] MEDS ORDERED: INSULIN DEGLUDEC 40 UNIT SQ SCH (09:00)
[2018-01-09] MEDS: MECLIZINE HCL 12.5 MG TAB PO SCH ×3 (09:46→21:29)
[2018-01-09] MEDS: HYDRALAZINE HCL 25 MG TABLET PO SCH ×2 (09:46→21:29)
[2018-01-09] MEDS: PANTOPRAZOLE 40MG TABLET PO SCH (09:46)
[2018-01-09] MEDS: PREGABALIN 50 MG CAP PO SCH ×2 (09:46→21:28)
[2018-01-09] MEDS: CITALOPRAM 10 MG TABLET PO SCH (09:46)
[2018-01-09] MEDS: FERROUS SULFATE 325 MG TAB PO SCH (09:46)
[2018-01-09] MEDS ORDERED: GLUCAGON 1 MG/VIAL IM PRN (10:04)
[2018-01-09] MEDS ORDERED: D50W 25 GM/50 ML SYRINGE IV PRN (10:04)
[2018-01-09] MEDS: ACETAMINOPHEN 500 MG TAB PO PRN (10:38)
[2018-01-09] MEDS ORDERED: NACHLORIDE 0.45% 1,000 ML IV SCH (11:00)
[2018-01-09 11:18] LABS: Absolute Lymphocytes (CBC) 1.6 K/uL (0.7-4.9); Absolute Monocytes 0.5 K/uL (0.1-1.3); Absolute Neutrophil 5.2 K/uL (1.8-8.0); Basophils % 1.1 % (0-1.3); Eosinophils % 3.3 % (0-4.4); Hematocrit 23.3 % (36.0-45.0); Lymphocytes % 20.9 % (15.3-44.8); MCH 32.1 pg (27.0-35.0); MCV 98.6 fL (80-100); MPV 8.7 fL (7.6-11.3); Monocytes % 6.1 % (3.3-12.3); RBC Red Blood Cell Count 2.37 M/uL (3.86-4.86)
[2018-01-09] MEDS: INSULIN -REGULAR HUMAN 50 UNIT/0.5 ML ML SQ SCH ×3 (11:30→21:00)
[2018-01-09 11:56] LABS: Magnesium 1.8 mg/dL (1.8-2.4); Phosphorus 3.7 mg/dL (2.5-4.9)
[2018-01-09 12:00] LABS: Potassium 5.7 mmol/L (3.5-5.1)
[2018-01-09] MEDS ORDERED: CALCIUM GLUC 10% INJ 4.65 MEQ in NA CHLORIDE 0.9% 100 ML IV ONE (12:09)
[2018-01-09] MEDS ORDERED: SOD POLYSTYREN SUL 15 GM/60 ML UCUP PO ONE (12:10)
--- NOTE | 2018-01-09 14:38 | RAD REPORT ---
EXAM DESCRIPTION: US - Renal Ultrasound-Complete - 01/09/2018 2:26 pm CLINICAL HISTORY: . Acute renal insufficiency COMPARISON: 2017 FINDINGS: The right kidney measures 8 cm with a normal echotexture. The left kidney measures 8 cm with a normal echotexture. Hydronephrosis is not seen. No gross abnormality of bladder is seen IMPRESSION: Unremarkable renal ultrasound.
--- NOTE | 2018-01-09 15:34 | EKG ---
Test Date: 2018-01-09 Test Time: 12:53:09 Urban And Regional Planner: JOSUE MEASUREMENT RESULTS: Intervals: Rate: 74 RI: 180 QRSD: 74 QT: 388 QTc: 430 [place]: P: 36 RI: 180 QRS: 22 T: 51 INTERPRETIVE STATEMENTS: Normal sinus rhythm Possible Inferior infarct, age undetermined Abnormal ECG Compared to ECG 01/08/2018 21:57:16 Atrial premature complex(es) no longer present Myocardial infarct finding still present Electronically Signed On 01-09-18 15:33:09 KISS MACHINE OPERATOR by Jefe Ewing
[2018-01-09 16:20] LABS: Urine RBC <5 /HPF (NONE SEEN)
[2018-01-09 16:21] LABS: Urine Amorphous Sediment 1+ /HPF (NONE SEEN); Urine Bacteria >50 /HPF (<20)
[2018-01-09 16:22] LABS: Urine Culture Reflex Order REFLEXED
--- NOTE | 2018-01-09 16:28 | P.HP ---
Certification for Inpatient Patient admitted to: Inpatient With expected LOS: >2 Midnights Patient will require the following post-hospital care: None Practitioner: I am a practitioner with admitting privileges, knowledge of patient current condition, hospital course, and medical plan of care. Services: Services provided to patient in accordance with Admission requirements found in Title 42 Section 412.3 of the Code of Federal Regulations Patient History Date of Service: 01/09/18 Reason for admission: SOB /hyperkalemia/acute on chronic kidney disease/ coagulopathy History of Present Illness: Patient is a 77-year-old female who came into the hospital with lethargy and shortness of breath. She states she has not been feeling well and is fatigued. She gets short of breath with very little activity. She has very little strength. In the ER workup revealed hyperkalemia and acute on chronic kidney disease along with a coagulopathy and anemia. We will need to get nephrology consultation and will also get a renal ultrasound. Patient will need to be admitted to the hospital for further workup. Allergies Quinolones Allergy (Verified 09/25/17 01:08) Anaphylaxis Home Medications: Anastrozole [Arimidex] 1 mg PO DAILY 01/09/18 Atorvastatin Calcium 40 mg PO BEDTIME 01/09/18 Citalopram Hydrobromide [Celexa] 20 mg PO DAILY 01/09/18 Ferrous Sulfate 325 mg PO DAILY 01/09/18 Hydralazine [Apresoline] 25 mg PO BID 01/09/18 Insulin Degludec [Tresiba Flextouch U-200] 40 unit SQ DAILY 01/09/18 Meclizine HCl 25 mg PO TID 01/09/18 Pantoprazole [Protonix Tab] 40 mg PO DAILY 01/09/18 Pregabalin [Lyrica] 50 mg PO BID 01/09/18 Warfarin Sodium [Coumadin] 2 mg PO DAILY 01/09/18 - Past Medical/Surgical History Has patient received pneumonia vaccine in the past: No Diabetic: Yes -: Atrial fibrillation, Cardiology-Dr. Camarena -: Chronic anticoagulation-Coumadin -: HTN -: GERD -: Chronic renal disease, Baseline GFR-30, Nephrology -: PVD -: Gout -: Depression with Anxiety -: Diabetes mellitus type 2, insulin-dependent -: Coronary disease -: Carotid arterial disease -: Hyperlipidemia -: Appendectomy -: Tubal ligation -: Hysterectomy -: Heart Cath Psychosocial/ Personal History: Patient currently lives in assisted living facility-[facility]. She has 10 children. - Family History Brother Medical History: Diabetes Mother Medical History: Heart disease, Hypertension, Diabetes Notes: arthritis - Social History Smoking Status: Never smoker Alcohol use: No CD- Drugs: No Caffeine use: Yes Place of Residence: Home Review of Systems 10-point ROS is otherwise unremarkable Physical Examination - Vital Signs Temperature: 98.5 F Blood Pressure: 126/61 Pulse: 75 Respirations: 20 Pulse Ox (%): 95 - Physical Exam General: Alert, In no apparent distress, Oriented x2, Mild distress, Obese HEENT: Atraumatic, PERRLA, Mucous membr. moist/pink, EOMI, Sclerae nonicteric Neck: Supple, 2+ carotid pulse no bruit, No LAD, Without JVD or thyroid abnormality Respiratory: Diminished Cardiovascular: Regular rate/rhythm, Normal S1 S2, Systolic murmur Gastrointestinal: Normal bowel sounds, Soft and benign, No tenderness, No rebound, No guarding, Distended Musculoskeletal: No clubbing, No tenderness, Swelling Integumentary: No rashes Neurological: Normal speech, Normal tone, Sensation intact, Cranial nerves 3-12 intact, Normal affect, Abnormal gait, Abnormal strength Lymphatics: No axilla or inguinal lymphadenopathy - Studies Laboratory Data (last 24 hrs) 01/08/18 23:30: Potassium 6.5 H* 01/08/18 22:46: PT 61.2 H, INR 5.10 H*, APTT 71.0 H 01/08/18 22:46: WBC 9.4, Hgb 8.2 L, Hct 25.1 L, Plt Count 268 01/08/18 22:46: Sodium 142, Potassium 6.7 H*, BUN 59 H, Creatinine 2.30 H, Glucose 240 H, Magnesium 1.8, Total Bilirubin 0.4, AST 15, ALT 16, Alkaline Phosphatase 153 H, Lipase 114 Assessment & Plan - Problems (Diagnosis) (1) Abnormal renal function Onset Date: 07/06/15 Current Visit: No Status: Acute (2) Acute kidney injury superimposed on chronic kidney disease Onset Date: 09/25/17 Current Visit: No Status: Acute (3) Altered mental status Onset Date: 08/31/15 Current Visit: No Status: Acute (4) Anemia Onset Date: 11/27/17 Current Visit: No Status: Acute (5) Chronic anticoagulation Onset Date: 04/17/16 Current Visit: No Status: Acute (6) Chronic renal insufficiency Onset Date: 04/05/15 Current Visit: No Status: Acute (7) Dyspnea Onset Date: 07/06/15 Current Visit: No Status: Acute (8) Weakness generalized Onset Date: 04/17/16 Current Visit: No Status: Acute (9) Atrial fibrillation Onset Date: 04/17/16 Current Visit: No Status: Chronic Qualifiers: (10) CAD (coronary artery disease) Onset Date: 11/27/17 Current Visit: No Status: Chronic Qualifiers: (11) CHF (congestive heart failure) Onset Date: 07/06/15 Current Visit: No Status: Chronic Qualifiers: (12) Carotid arterial disease Onset Date: 04/17/16 Current Visit: No Status: Chronic (13) Depression with anxiety Current Visit: No Status: Chronic (14) HTN (hypertension) Onset Date: 04/17/16 Current Visit: No Status: Chronic Qualifiers: (15) Hyperlipidemia Onset Date: 11/27/17 Current Visit: No Status: Chronic Qualifiers: (16) Type II diabetes mellitus Current Visit: No Status: Chronic Qualifiers: (17) Warfarin-induced coagulopathy Current Visit: Yes Status: Acute - Plan Plan: 1. gentle hydration 2. recheck potassium level 3. nephrology consultation 4. If it remains elevated patient to ICU 5. Renal ultrasound 6. telemetry monitoring for arrhythmias patient hyperkalemic 7. strict blood pressure and blood sugar control 8. physical therapy evaluation 9. monitor H&H/ monitor INR as well 10. May need transfusion as she has significant cardiac disease 11. GI and DVT prophylaxis - Advance Directives Does patient have a Living Will: Yes Does patient have a Durable POA for Healthcare: Yes - Code Status/Comfort Care Code Status Assessed: Yes Code Status: Full Code Critical Care: No Time Spent Managing PTS Care (In Minutes): 50
[2018-01-09] MEDS: ATORVASTATIN 40 MG TAB PO SCH (21:28)
[2018-01-10] MEDS: IPRATROPIUM BROM 0.5MG/2.5ML NEB SCH ×4 (01:13→19:40)
--- NOTE | 2018-01-10 01:34 | CON ---
Date of Consultation: 01/09/2018 Additional Consulting Physician: Dr. Laura. Reason For Consultation: Elevated BUN and creatinine, fluid management. History Of Present Illness: This is a pleasant 77-year-old female with significant past medical hist ory of diabetes complicated with neuropathy, hypertension, hyperlipidemia, chronic kidney disease wit h baseline creatinine of 1.7 to 1.8, GFR around 25 to 30, hyperlipidemia, coronary artery disease wit h status post PTCA. The patient was in her regular state of health, came to the hospital after all o f a sudden the patient started having chest pain and chest tightness. While she was resting, found t o have elevation in BUN and creatinine over volume. For that reason, we have been consulted. The pa kingsley denied taking any nonsteroidal. No IV contrast. No change in her medication. Reviewing the r ecord, the patient back in November was admitted. At that time GFR of 31 and creatinine was 1.6. The patient no fever or chills. No cough. Over the night, the patient was started on oxygen. Kidney function stayed the same. For that reason , we have been consulted. The patient denied taking any nonsteroidal. No IV contrast. Past Medical History: Include: 1.Hypertension. 2.Hyperlipidemia. 3.Diabetes complicated with neuropathy, retinopathy, and nephropathy. 4.Chronic kidney disease, baseline creatinine 1.6, GFR 31. 5.Hyperlipidemia. 6.Coronary artery disease status post PTCA. Social History: Denies smoking. Denies drinking. Denies drug abuse. Family History: Positive for diabetes and hypertension. Allergies: NO KNOWN DRUG ALLERGIES. Past Surgical History: Include hysterectomy, appendectomy, rotator cuff, PTCA. Review of Systems: Head and Neck: No red eye. No ear pain. GI: No nausea, no vomiting. : No polyuria, no dysuria, no hematuria. ASPHALT ROLLER PERSON: No vaginal discharge. Respiratory: Has shortness of breath. Cardiovascular: Has chest tightness. Endocrine: No polydipsia. Skin: No rash. Neuro: Has neuropathy. Musculoskeletal: No joint pain. Medications: Current medications in the hospital include albuterol, ferrous sulfate, atorvastatin, T ylenol, citalopram, Lyrica, Kayexalate, breathing treatment, hydralazine 25 t.i.d., meclizine, pantop razole, and IV fluid. Home medication include insulin, hydralazine, ferrous sulfate, pantoprazole, Lyrica, and Coumadin, Ar imidex. Assessment And Plan: 1.Acute kidney injury on chronic kidney disease stage 3B. The acute kidney injury secondary to card iorenal with over volume. I am going to go ahead and discontinue IV fluid, start the patient on Lasi x, and we will monitor the patient. 2.Hyperkalemia secondary to renal failure. I agree with the treatment. We will start the patient o n Lasix to establish better potassium diuresis. I am going to go ahead and send for renal ultrasound , PTH. Given the presence of the anemia, gastrointestinal loss needs to be ruled out. We will send for the workup. 3.Over volume anasarca mostly secondary to cardiorenal. We will follow up with Cardiology. Start t he patient on diuresis. 4.Anemia with the presence of acute kidney injury. Light chain disease needs to be ruled out. I am going to go ahead and send for SPEP and we will send for anemia workup. 5.Secondary hyperparathyroidism. I do not see the need to start the patient on vitamin D for the ti me being. We will follow up. 6.Diabetes as by primary. Laboratory Data: WBC 7.5, H and H 7.6/23.3, platelets 249. Sodium 145, potassium 5.7, bicarb 20, BU N 61, creatinine 2.3, calcium 8.3, phosphorus 3.7. Thank you Dr. Laura for allowing us to participate in the care of your patient. FIDEL Voice ID: [id number] Report ID: [id number]
[2018-01-10 05:49] LABS: Urine Appearance CLOUDY; Urine Bilirubin NEGATIVE (NEG); Urine Blood TRACE (NEG); Urine Color YELLOW; Urine Glucose NEGATIVE (NEG); Urine Protein 1+ (NEG); Urine Specific Gravity 1.015 (1.005-1.030); Urine Urobilinogen 0.2 mg/dL (0.2-1.0); Urine pH 5.5 (5.0-7.0)
[2018-01-10 06:08] LABS: Urine Microscopic Reflex ORDER UMIC
[2018-01-10 06:09] LABS: Urine Bacteria >50 /HPF (<20); Urine Culture Reflex Order NOT NEEDED; Urine RBC <5 /HPF (NONE SEEN)
[2018-01-10 06:10] LABS: Absolute Lymphocytes (CBC) 1.5 K/uL (0.7-4.9); Absolute Monocytes 0.3 K/uL (0.1-1.3); Absolute Neutrophil 4.5 K/uL (1.8-8.0); Basophils % 0.8 % (0-1.3); Eosinophils % 6.1 % (0-4.4); Hematocrit 23.5 % (36.0-45.0); Lymphocytes % 22.2 % (15.3-44.8); MCH 31.1 pg (27.0-35.0); MCV 98.5 fL (80-100); MPV 8.7 fL (7.6-11.3); Monocytes % 4.5 % (3.3-12.3); RBC Red Blood Cell Count 2.39 M/uL (3.86-4.86)
[2018-01-10 06:31] LABS: Protime INR 4.51
[2018-01-10 07:08] LABS: Albumin 2.5 g/dL (3.4-5.0); Bilirubin Total 0.3 mg/dL (0.2-1.0); Folic Acid, (Folate) 12.3 ng/mL (3.1-17.5); Phosphorus 3.9 mg/dL (2.5-4.9); Uric Acid 6.3 mg/dL (2.6-6.0)
[2018-01-10 07:24] LABS: Thyroid Stimulating Hormone 3.84 uIU/mL (0.360-3.740)
[2018-01-10 07:25] LABS: Potassium 5.8 mmol/L (3.5-5.1)
[2018-01-10] MEDS: INSULIN -REGULAR HUMAN 50 UNIT/0.5 ML ML SQ SCH ×4 (07:30→20:37)
[2018-01-10] MEDS: FUROSEMIDE 40 MG/4 ML VIAL IV SCH ×2 (08:45→17:15)
[2018-01-10] MEDS: PREGABALIN 50 MG CAP PO SCH ×2 (08:46→20:36)
[2018-01-10] MEDS: CITALOPRAM 10 MG TABLET PO SCH (08:46)
[2018-01-10] MEDS: FERROUS SULFATE 325 MG TAB PO SCH (08:46)
[2018-01-10] MEDS: MECLIZINE HCL 12.5 MG TAB PO SCH ×3 (08:47→20:36)
[2018-01-10] MEDS: HYDRALAZINE HCL 25 MG TABLET PO SCH ×2 (08:47→20:36)
[2018-01-10] MEDS: PANTOPRAZOLE 40MG TABLET PO SCH (08:47)
[2018-01-10] MEDS: INSULIN DEGLUDEC U SQ SCH (09:00)
--- NOTE | 2018-01-10 16:15 | P.PN ---
Subjective Date of Service: 01/10/18 Chief Complaint: SOB /hyperkalemia/acute on chronic kidney disease/ coagulopathy Patient seen and examined at bedside with RN. Chart reviewed. Case discussed with nephrology at this time. No complaints to offer overnight. Feeling much better than before. Review of Systems 10-point ROS is otherwise unremarkable Physical Examination - Vital Signs Temperature: 97.8 F Blood Pressure: 160/65 Pulse: 76 Respirations: 20 Pulse Ox (%): 98 - Physical Exam General: Alert, In no apparent distress HEENT: Atraumatic, PERRLA, EOMI Neck: Supple, JVD not distended Respiratory: Clear to auscultation bilaterally, Normal air movement Cardiovascular: Regular rate/rhythm, Normal S1 S2 Gastrointestinal: Normal bowel sounds, No tenderness Musculoskeletal: No tenderness Integumentary: No rashes Neurological: Normal speech, Normal tone, Normal affect Lymphatics: No axilla or inguinal lymphadenopathy - Studies Medications List Reviewed: Yes Assessment And Plan - Current Problems (Diagnosis) (1) Acute kidney injury superimposed on chronic kidney disease Onset Date: 09/25/17 Current Visit: No Status: Acute Plan: Acute kidney injury with hyperkalemia -most likely secondary to cardio renal syndrome -Nephrology has been consulted on the case. Appreciated recommendations at this time -started on IV Lasix here -BUN and creatinine improving today will continue to monitor closely (2) Atrial fibrillation Onset Date: 11/27/17 Current Visit: No Status: Chronic Plan: Patient currently on anti coagulation and beta-yunier for AFib controlled. Will restart here in the hospital Qualifiers: Atrial fibrillation type: chronic Qualified Code(s): I48.2 - Chronic atrial fibrillation (3) CAD (coronary artery disease) Onset Date: 11/27/17 Current Visit: No Status: Chronic Qualifiers: Coronary Disease-Associated Artery/Lesion type: [place] artery [place] vs. transplanted heart: [place] heart Associated angina: without angina Qualified Code(s): I25.10 - Atherosclerotic heart disease of [place] coronary artery without angina pectoris (4) CHF (congestive heart failure) Onset Date: 07/06/15 Current Visit: No Status: Chronic Qualifiers: Heart failure type: combined systolic and diastolic Heart failure chronicity: chronic Qualified Code(s): I50.42 - Chronic combined systolic ( congestive) and diastolic (congestive) heart failure (5) Depression with anxiety Current Visit: No Status: Chronic (6) Diabetes mellitus Onset Date: 07/06/15 Current Visit: No Status: Chronic Qualifiers: Diabetes mellitus type: type 2 Diabetes mellitus geography department chair insulin use: with geography department chair use Diabetes mellitus complication status: with kidney complications Diabetes mellitus complication detail: with chronic kidney disease Chronic kidney disease stage: stage 4 (severe) Qualified Code(s): E11.22 - Type 2 diabetes mellitus with diabetic chronic kidney disease; N18.4 - Chronic kidney disease, stage 4 (severe); 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 (7) GERD (gastroesophageal reflux disease) Current Visit: No Status: Chronic Qualifiers: Esophagitis presence: esophagitis presence not specified Qualified Code(s) : K21.9 - Gastro-esophageal reflux disease without esophagitis (8) HTN (hypertension) Onset Date: 04/17/16 Current Visit: No Status: Chronic Qualifiers: Hypertension type: essential hypertension (9) Hyperlipidemia Onset Date: 11/27/17 Current Visit: No Status: Chronic Qualifiers: Hyperlipidemia type: pure hypercholesterolemia Qualified Code(s): E78.00 - Pure hypercholesterolemia, unspecified; E78.0 - Pure hypercholesterolemia Discharge Plan: Home Plan to discharge in: 48 Hours - Code Status/Comfort Care Code Status Assessed: Yes Critical Care: No
[2018-01-10] MEDS ORDERED: SOD POLYSTYREN SUL 15 GM/60 ML UCUP PO ONE (18:41)
[2018-01-10 20:09] LABS: Urine Protein/Creatinine Ratio 0.68 ratio (<0.15)
[2018-01-10] MEDS: ATORVASTATIN 40 MG TAB PO SCH (20:36)
--- NOTE | 2018-01-10 23:05 | P.PN ---
Subjective Date of Service: 01/10/18 Chief Complaint: SOB /hyperkalemia/acute on chronic kidney disease/ coagulopathy Subjective: No new changes Pt with MITCH and hyperkalemia admitted for SOB Cr improved on diuresis Still have rales on exam Physical Examination - Vital Signs Temperature: 97.1 F Blood Pressure: 172/65 Pulse: 74 Respirations: 18 Pulse Ox (%): 100 - Physical Exam General: Oriented x3 Neck: Supple, Without JVD or thyroid abnormality Respiratory: Crackles/rales Cardiovascular: No edema, Regular rate/rhythm, Normal S1 S2 Gastrointestinal: Normal bowel sounds - Studies Medications List Reviewed: Yes Assessment And Plan - Current Problems (Diagnosis) (1) Abnormal renal function Onset Date: 07/06/15 Current Visit: No Status: Acute (2) Anemia Onset Date: 11/27/17 Current Visit: No Status: Acute - Plan Assessment And Plan: Acute kidney injury on chronic kidney disease stage 3B. Likely due to cardiorenal with over volume. Cr from 2.3>1.9 on lasix UPC 0.6 US 8cm B/l no hydro CR at baseline 1.6-1.8 will rpt CXR Anemia Check for FOBT b12 and folate ok lo iron stores will start on IV iron F/U SPEP Hyperkalemia MITCH +/_ RTA 4 sill send for Ur K, Cr and osmol hyperkalemia treatment Diabetes as by primary.
[2018-01-11] MEDS: IPRATROPIUM BROM 0.5MG/2.5ML NEB SCH ×4 (01:37→20:05)
[2018-01-11 06:23] LABS: Albumin 2.7 g/dL (3.4-5.0); Phosphorus 4.5 mg/dL (2.5-4.9); Potassium 4.6 mmol/L (3.5-5.1)
[2018-01-11] MEDS: INSULIN -REGULAR HUMAN 50 UNIT/0.5 ML ML SQ SCH ×4 (07:30→21:00)
[2018-01-11] MEDS: INSULIN DEGLUDEC U SQ SCH (09:00)
--- NOTE | 2018-01-11 09:33 | RAD REPORT ---
EXAM DESCRIPTION: RAD - Chest Single View - 01/11/2018 9:27 am CLINICAL HISTORY: evaluate for effusion/edema Chest pain. COMPARISON: Chest Single View dated 01/08/2018; Chest Single View dated 11/23/2017; Chest Single View dated 10/19/2017; Chest Single View dated 09/29/2017 FINDINGS: Portable technique limits examination quality. Mild interstitial pulmonary edema is seen, improved mildly since the comparative study. The heart is mildly enlarged in size. No displaced fractures. IMPRESSION: Mild improvement in CHF/ volume overload pattern.
[2018-01-11] MEDS: FUROSEMIDE 40 MG/4 ML VIAL IV SCH ×2 (10:18→18:31)
[2018-01-11] MEDS: FERROUS SULFATE 325 MG TAB PO SCH (10:19)
[2018-01-11] MEDS: CITALOPRAM 10 MG TABLET PO SCH (10:19)
[2018-01-11] MEDS: HYDRALAZINE HCL 25 MG TABLET PO SCH ×2 (10:19→21:43)
[2018-01-11] MEDS: MECLIZINE HCL 12.5 MG TAB PO SCH ×3 (10:19→21:44)
[2018-01-11] MEDS: PANTOPRAZOLE 40MG TABLET PO SCH (10:19)
[2018-01-11] MEDS: PREGABALIN 50 MG CAP PO SCH ×2 (10:21→21:44)
--- NOTE | 2018-01-11 14:06 | P.PN ---
Subjective Date of Service: 01/11/18 Chief Complaint: SOB /hyperkalemia/acute on chronic kidney disease/ coagulopathy Patient seen and examined at bedside with RN. Chart reviewed. Case discussed with nephrology at this time. No complaints to offer overnight. Feeling much better than before. Review of Systems 10-point ROS is otherwise unremarkable Physical Examination - Vital Signs Temperature: 96.9 F Blood Pressure: 152/63 Pulse: 94 Respirations: 16 Pulse Ox (%): 97 - Physical Exam General: Alert, In no apparent distress HEENT: Atraumatic, PERRLA, EOMI Neck: Supple, JVD not distended Respiratory: Clear to auscultation bilaterally, Normal air movement Cardiovascular: Regular rate/rhythm, Normal S1 S2 Gastrointestinal: Normal bowel sounds, No tenderness Musculoskeletal: No tenderness Integumentary: No rashes Neurological: Normal speech, Normal tone, Normal affect Lymphatics: No axilla or inguinal lymphadenopathy - Studies Medications List Reviewed: Yes Assessment And Plan - Current Problems (Diagnosis) (1) Acute kidney injury superimposed on chronic kidney disease Onset Date: 09/25/17 Current Visit: No Status: Acute Plan: Acute kidney injury with hyperkalemia -most likely secondary to cardio renal syndrome -Nephrology has been consulted on the case. Appreciated recommendations at this time -Increase Lasix per Nephrology Reccs -BUN and creatinine improving today will continue to monitor closely (2) Atrial fibrillation Onset Date: 11/27/17 Current Visit: No Status: Chronic Plan: Patient currently on anti coagulation and beta-yunier for AFib controlled. Will restart here in the hospital Qualifiers: Atrial fibrillation type: chronic Qualified Code(s): I48.2 - Chronic atrial fibrillation (3) CAD (coronary artery disease) Onset Date: 11/27/17 Current Visit: No Status: Chronic Qualifiers: Coronary Disease-Associated Artery/Lesion type: [place] artery [place] vs. transplanted heart: [place] heart Associated angina: without angina Qualified Code(s): I25.10 - Atherosclerotic heart disease of [place] coronary artery without angina pectoris (4) CHF (congestive heart failure) Onset Date: 07/06/15 Current Visit: No Status: Chronic Qualifiers: Heart failure type: combined systolic and diastolic Heart failure chronicity: chronic Qualified Code(s): I50.42 - Chronic combined systolic ( congestive) and diastolic (congestive) heart failure (5) Depression with anxiety Current Visit: No Status: Chronic (6) Diabetes mellitus Onset Date: 07/06/15 Current Visit: No Status: Chronic Qualifiers: Diabetes mellitus type: type 2 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 insulin use: with longterm use Diabetes mellitus complication status: with kidney complications Diabetes mellitus complication detail: with chronic kidney disease Chronic kidney disease stage: stage 4 (severe) Qualified Code(s): E11.22 - Type 2 diabetes mellitus with diabetic chronic kidney disease; N18.4 - Chronic kidney disease, stage 4 (severe); Z79.4 - FPC (current) use of insulin (7) GERD (gastroesophageal reflux disease) Current Visit: No Status: Chronic Qualifiers: Esophagitis presence: esophagitis presence not specified Qualified Code(s) : K21.9 - Gastro-esophageal reflux disease without esophagitis (8) HTN (hypertension) Onset Date: 04/17/16 Current Visit: No Status: Chronic Qualifiers: Hypertension type: essential hypertension (9) Hyperlipidemia Onset Date: 11/27/17 Current Visit: No Status: Chronic Qualifiers: Hyperlipidemia type: pure hypercholesterolemia Qualified Code(s): E78.00 - Pure hypercholesterolemia, unspecified; E78.0 - Pure hypercholesterolemia
[2018-01-11] MEDS: ATORVASTATIN 40 MG TAB PO SCH (21:44)
--- NOTE | 2018-01-11 22:08 | P.PN ---
Subjective Date of Service: 01/11/18 Chief Complaint: SOB /hyperkalemia/acute on chronic kidney disease/ coagulopathy Subjective: No new changes Pt with MITCH and hyperkalemia admitted for SOB CXR still have edema will increase lasix to 80mg bid Na 148, might consider to increase PO intake ro D5w if cont to increase Physical Examination - Vital Signs Temperature: 97.5 F Blood Pressure: 162/70 Pulse: 72 Respirations: 18 Pulse Ox (%): 99 - Physical Exam General: Oriented x3 HEENT: Atraumatic Neck: Supple Respiratory: Crackles/rales Cardiovascular: Edema - Studies Medications List Reviewed: Yes Assessment And Plan - Current Problems (Diagnosis) (1) Abnormal renal function Onset Date: 07/06/15 Current Visit: No Status: Acute (2) Anemia Onset Date: 11/27/17 Current Visit: No Status: Acute - Plan Assessment And Plan: Acute kidney injury on chronic kidney disease stage 3B. Likely due to cardiorenal with over volume. Cr from 2.3>1.9 on lasix UPC 0.6 US 8cm B/l no hydro CR at baseline 1.6-1.8 will rpt CXR Anemia Check for FOBT b12 and folate ok lo iron stores will start on IV iron F/U SPEP Hyperkalemia MITCH +/_ RTA 4 sill send for Ur K, Cr and osmol hyperkalemia treatment Diabetes as by primary.
[2018-01-12] MEDS: IPRATROPIUM BROM 0.5MG/2.5ML NEB SCH ×4 (02:25→20:10)
[2018-01-12 05:27] LABS: Absolute Lymphocytes (CBC) 1.5 K/uL (0.7-4.9); Absolute Monocytes 0.3 K/uL (0.1-1.3); Absolute Neutrophil 4.5 K/uL (1.8-8.0); Basophils % 0.8 % (0-1.3); Eosinophils % 5.6 % (0-4.4); Hematocrit 22.3 % (36.0-45.0); Lymphocytes % 22.2 % (15.3-44.8); MCH 32.2 pg (27.0-35.0); MCV 96.4 fL (80-100); MPV 9.7 fL (7.6-11.3); Monocytes % 4.6 % (3.3-12.3); RBC Red Blood Cell Count 2.31 M/uL (3.86-4.86)
[2018-01-12 05:53] LABS: Albumin 2.6 g/dL (3.4-5.0); Phosphorus 4.4 mg/dL (2.5-4.9); Potassium 4.7 mmol/L (3.5-5.1)
[2018-01-12] MEDS: INSULIN -REGULAR HUMAN 50 UNIT/0.5 ML ML SQ SCH ×4 (07:30→20:45)
[2018-01-12] MEDS: INSULIN DEGLUDEC U SQ SCH (09:00)
[2018-01-12] MEDS: FUROSEMIDE 40 MG/4 ML VIAL IV SCH ×2 (10:34→17:12)
[2018-01-12] MEDS: PREGABALIN 50 MG CAP PO SCH ×2 (10:34→20:44)
[2018-01-12] MEDS: FERROUS SULFATE 325 MG TAB PO SCH (10:34)
[2018-01-12] MEDS: PANTOPRAZOLE 40MG TABLET PO SCH (10:35)
[2018-01-12] MEDS: HYDRALAZINE HCL 25 MG TABLET PO SCH ×2 (10:35→20:44)
[2018-01-12] MEDS: MECLIZINE HCL 12.5 MG TAB PO SCH ×3 (10:36→20:45)
[2018-01-12] MEDS: CITALOPRAM 10 MG TABLET PO SCH (10:37)
[2018-01-12] MEDS: ACETAMINOPHEN 500 MG TAB PO PRN (10:37)
[2018-01-12] MEDS: SOD FERRIC GLUC COMPLX/SUCROSE 125 MG in NA CHLORIDE 0.9% 100 ML IV SCH (10:55)
--- NOTE | 2018-01-12 10:58 | P.PN ---
Subjective Date of Service: 01/12/18 Chief Complaint: SOB /hyperkalemia/acute on chronic kidney disease/ coagulopathy Patient seen and examined at bedside with RN. Chart reviewed. Case discussed with nephrology at this time. No complaints to offer overnight. Feeling Weak today. Review of Systems 10-point ROS is otherwise unremarkable Physical Examination - Vital Signs Temperature: 97.3 F Blood Pressure: 144/66 Pulse: 68 Respirations: 16 Pulse Ox (%): 97 - Physical Exam General: Alert, In no apparent distress HEENT: Atraumatic, PERRLA, EOMI Neck: Supple, JVD not distended Respiratory: Clear to auscultation bilaterally, Normal air movement Cardiovascular: Regular rate/rhythm, Normal S1 S2 Gastrointestinal: Normal bowel sounds, No tenderness Musculoskeletal: No tenderness Integumentary: No rashes Neurological: Normal speech, Normal tone, Normal affect Lymphatics: No axilla or inguinal lymphadenopathy - Studies Medications List Reviewed: Yes Assessment And Plan - Current Problems (Diagnosis) (1) Acute kidney injury superimposed on chronic kidney disease Onset Date: 09/25/17 Current Visit: No Status: Acute Plan: Acute kidney injury with hyperkalemia -most likely secondary to cardio renal syndrome -Nephrology has been consulted on the case. Appreciated recommendations at this time -Lasix 40mg BID for now -BUN and creatinine improving today will continue to monitor closely -Patient however does have Hypernatremia and Hypercholermia - Will consider D5W bolus (2) Atrial fibrillation Onset Date: 11/27/17 Current Visit: No Status: Chronic Plan: Patient currently on anti coagulation and beta-yunier for AFib controlled. -Will restart here in the hospital Qualifiers: Atrial fibrillation type: chronic Qualified Code(s): I48.2 - Chronic atrial fibrillation (3) CAD (coronary artery disease) Onset Date: 11/27/17 Current Visit: No Status: Chronic Qualifiers: Coronary Disease-Associated Artery/Lesion type: [place] artery [place] vs. transplanted heart: [place] heart Associated angina: without angina Qualified Code(s): I25.10 - Atherosclerotic heart disease of [place] coronary artery without angina pectoris (4) CHF (congestive heart failure) Onset Date: 07/06/15 Current Visit: No Status: Chronic Qualifiers: Heart failure type: combined systolic and diastolic Heart failure chronicity: chronic Qualified Code(s): I50.42 - Chronic combined systolic ( congestive) and diastolic (congestive) heart failure (5) Depression with anxiety Current Visit: No Status: Chronic (6) Diabetes mellitus Onset Date: 07/06/15 Current Visit: No Status: Chronic Qualifiers: Diabetes mellitus type: type 2 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 insulin use: with half-way use Diabetes mellitus complication status: with kidney complications Diabetes mellitus complication detail: with chronic kidney disease Chronic kidney disease stage: stage 4 (severe) Qualified Code(s): E11.22 - Type 2 diabetes mellitus with diabetic chronic kidney disease; N18.4 - Chronic kidney disease, stage 4 (severe); 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 (7) GERD (gastroesophageal reflux disease) Current Visit: No Status: Chronic Qualifiers: Esophagitis presence: esophagitis presence not specified Qualified Code(s) : K21.9 - Gastro-esophageal reflux disease without esophagitis (8) HTN (hypertension) Onset Date: 04/17/16 Current Visit: No Status: Chronic Qualifiers: Hypertension type: essential hypertension (9) Hyperlipidemia Onset Date: 11/27/17 Current Visit: No Status: Chronic Qualifiers: Hyperlipidemia type: pure hypercholesterolemia Qualified Code(s): E78.00 - Pure hypercholesterolemia, unspecified; E78.0 - Pure hypercholesterolemia Discharge Plan: Home Plan to discharge in: 48 Hours - Code Status/Comfort Care Code Status Assessed: Yes Critical Care: No
--- NOTE | 2018-01-12 20:04 | RAD REPORT ---
EXAM DESCRIPTION: Kya Single View01/12/2018 7:39 pm CLINICAL HISTORY: Shortness of breath COMPARISON: January 11 FINDINGS: Bilateral pulmonary opacities have mostly resolved. The heart is mildly enlarged IMPRESSION: Interstitial pulmonary edema has mostly resolved
[2018-01-12] MEDS: ATORVASTATIN 40 MG TAB PO SCH (20:44)
[2018-01-13] MEDS: IPRATROPIUM BROM 0.5MG/2.5ML NEB SCH ×4 (01:57→20:24)
--- NOTE | 2018-01-13 03:22 | PN ---
Date of Progress Note: 01/12/2018 Chief Complaint: Acute on chronic kidney injury. Subjective: Patient developed moderately severe acute kidney injury on chronic kidney disease associ ated with hyperkalemia. Patient has nonoliguric urine output. Laboratory Data: Lab work today was obtained and showed sodium 137, potassium 4.7, chloride 114, CO2 of 26, BUN 68, creatinine 1.9. On arrival to the hospital, creatinine was up to 2.3 and 2.4. Creat inine slightly improved over last today. Patient remains nonoliguric. Review of Systems: Patient denies fever or chills. Physical Examination: Lungs: Clear to auscultation bilaterally. Heart: S1, S2. Abdomen: Soft, benign. Extremities: Edema present in both legs. Vital Signs: Blood pressure 160/70, heart rate 72, respiratory rate 18, SpO2 of 99%. Lungs: Clear to auscultation bilaterally. Heart: S1, S2. Abdomen: Soft, benign. Extremities: Slight edema. Impression And Plan: 1.Acute on chronic kidney injury. Patient has chronic kidney disease stage 3B. Patient is volume o verloaded. She will continue diuretics for control of and to treat acute kidney injury se condary to cardiorenal syndrome. Monitor proteinuria panel to rule out high degree of proteinuria. 2.Chronic kidney disease. Ultrasound showed increased echotexture and no hydronephrosis. 3.Anemia. Monitor iron studies, adjust treatment accordingly. Consider BRAN. 4.Hyperkalemia. Patient has acute kidney injury. Hyperkalemia treatment was started and potassium level improved. VAN/SERGO Voice ID: [id number] Report ID: [id number]
[2018-01-13 05:20] LABS: Albumin 2.6 g/dL (3.4-5.0); Phosphorus 4.2 mg/dL (2.5-4.9); Potassium 4.5 mmol/L (3.5-5.1)
[2018-01-13] MEDS: INSULIN -REGULAR HUMAN 50 UNIT/0.5 ML ML SQ SCH ×4 (07:30→21:32)
[2018-01-13] MEDS: INSULIN DEGLUDEC U SQ SCH ×2 (09:00→10:03)
[2018-01-13] MEDS: CITALOPRAM 10 MG TABLET PO SCH (10:03)
[2018-01-13] MEDS: HYDRALAZINE HCL 25 MG TABLET PO SCH ×2 (10:03→21:32)
[2018-01-13] MEDS: FUROSEMIDE 40 MG/4 ML VIAL IV SCH (10:03)
[2018-01-13] MEDS: PANTOPRAZOLE 40MG TABLET PO SCH (10:03)
[2018-01-13] MEDS: FERROUS SULFATE 325 MG TAB PO SCH (10:03)
[2018-01-13] MEDS: MECLIZINE HCL 12.5 MG TAB PO SCH ×3 (10:03→21:32)
[2018-01-13] MEDS: PREGABALIN 50 MG CAP PO SCH ×2 (10:03→21:32)
[2018-01-13] MEDS: SOD FERRIC GLUC COMPLX/SUCROSE 125 MG in NA CHLORIDE 0.9% 100 ML IV SCH (10:04)
[2018-01-13 12:29] LABS: Absolute Lymphocytes (CBC) 2.1 K/uL (0.7-4.9); Absolute Monocytes 0.3 K/uL (0.1-1.3); Absolute Neutrophil 4.1 K/uL (1.8-8.0); Basophils % 1.3 % (0-1.3); Eosinophils % 5.4 % (0-4.4); Hematocrit 27.1 % (36.0-45.0); Lymphocytes % 29.4 % (15.3-44.8); MCH 31.2 pg (27.0-35.0); MCV 96.3 fL (80-100); MPV 9.8 fL (7.6-11.3); Monocytes % 4.8 % (3.3-12.3); RBC Red Blood Cell Count 2.82 M/uL (3.86-4.86)
[2018-01-13 12:48] LABS: Protime INR 1.35
--- NOTE | 2018-01-13 13:17 | P.PN ---
Subjective Date of Service: 01/13/18 Chief Complaint: SOB /hyperkalemia/acute on chronic kidney disease/ coagulopathy Patient seen and examined at bedside with RN. Chart reviewed. Case discussed with nephrology at this time. No complaints to offer overnight. Feels better than before. Status post blood transfusion. Review of Systems 10-point ROS is otherwise unremarkable Physical Examination - Vital Signs Temperature: 97.3 F Blood Pressure: 141/66 Pulse: 80 Respirations: 17 Pulse Ox (%): 96 - Physical Exam General: Alert, In no apparent distress HEENT: Atraumatic, PERRLA, EOMI Neck: Supple, JVD not distended Respiratory: Clear to auscultation bilaterally, Normal air movement Cardiovascular: Regular rate/rhythm, Normal S1 S2 Gastrointestinal: Normal bowel sounds, No tenderness Musculoskeletal: No tenderness Integumentary: No rashes Neurological: Normal speech, Normal tone, Normal affect Lymphatics: No axilla or inguinal lymphadenopathy - Studies Medications List Reviewed: Yes Assessment And Plan - Current Problems (Diagnosis) (1) Acute kidney injury superimposed on chronic kidney disease Onset Date: 09/25/17 Current Visit: No Status: Acute Plan: Acute kidney injury with hyperkalemia -most likely secondary to cardio renal syndrome -Nephrology has been consulted on the case. Appreciated recommendations at this time -Lasix discontinued Today due to increasing and creatinine and sodium -BUN and creatinine deviated today full -Patient with Hypernatremia and Hypercholermia - continue to monitor closely now with Lasix has been discontinued (2) Atrial fibrillation Onset Date: 11/27/17 Current Visit: No Status: Chronic Plan: Patient currently on anti coagulation and beta-yunier for AFib controlled. -anticoagulation is on hold due to elevated INR -restarted on beta-yunier here in the hospital -would check coagulation panel at this time Qualifiers: Atrial fibrillation type: chronic Qualified Code(s): I48.2 - Chronic atrial fibrillation (3) CAD (coronary artery disease) Onset Date: 11/27/17 Current Visit: No Status: Chronic Qualifiers: Coronary Disease-Associated Artery/Lesion type: [place] artery [place] vs. transplanted heart: [place] heart Associated angina: without angina Qualified Code(s): I25.10 - Atherosclerotic heart disease of [place] coronary artery without angina pectoris (4) CHF (congestive heart failure) Onset Date: 07/06/15 Current Visit: No Status: Chronic Qualifiers: Heart failure type: combined systolic and diastolic Heart failure chronicity: chronic Qualified Code(s): I50.42 - Chronic combined systolic ( congestive) and diastolic (congestive) heart failure (5) Depression with anxiety Current Visit: No Status: Chronic (6) Diabetes mellitus Onset Date: 07/06/15 Current Visit: No Status: Chronic Qualifiers: Diabetes mellitus type: type 2 Diabetes mellitus medical terminologist insulin use: with [facility] use Diabetes mellitus complication status: with kidney complications Diabetes mellitus complication detail: with chronic kidney disease Chronic kidney disease stage: stage 4 (severe) Qualified Code(s): E11.22 - Type 2 diabetes mellitus with diabetic chronic kidney disease; N18.4 - Chronic kidney disease, stage 4 (severe); 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 (7) GERD (gastroesophageal reflux disease) Current Visit: No Status: Chronic Qualifiers: Esophagitis presence: esophagitis presence not specified Qualified Code(s) : K21.9 - Gastro-esophageal reflux disease without esophagitis (8) HTN (hypertension) Onset Date: 04/17/16 Current Visit: No Status: Chronic Qualifiers: Hypertension type: essential hypertension Qualified Code(s): I10 - Essential (primary) hypertension (9) Hyperlipidemia Onset Date: 11/27/17 Current Visit: No Status: Chronic Qualifiers: Hyperlipidemia type: pure hypercholesterolemia Qualified Code(s): E78.00 - Pure hypercholesterolemia, unspecified; E78.0 - Pure hypercholesterolemia Discharge Plan: Home Plan to discharge in: 48 Hours - Code Status/Comfort Care Code Status Assessed: Yes Critical Care: No
[2018-01-13] MEDS: WARFARIN SODIUM 2 MG TAB PO SCH (17:00)
[2018-01-13] MEDS: ATORVASTATIN 40 MG TAB PO SCH (21:32)
--- NOTE | 2018-01-13 23:13 | PN ---
Date of Progress Note: 01/13/2018 Chief Complaint: Acute on chronic kidney injury. History Of Present Illness: Renal function has declined since yesterday. The patient was treated wi th diuretics to control congestive heart failure with diastolic dysfunction. The patient has nonolig uric urine output. The patient is complaining of nonproductive cough and shortness of breath. She i s responding to breathing treatments and shortness of breath is alleviated by nebulizers. Review of Systems: Denies fever, chills. Denies chest pain. Physical Examination: Lungs: Clear to auscultation bilaterally. Heart: S1, S2. Abdomen: Soft, benign. Extremities: Edema mild in both legs. Impression And Plan: 1.Acute on chronic kidney injury. The patient has chronic kidney disease stage IIIB. The patient h ad mild fluid overload. At this time, the patient is off diuretic. Continue low-sodium diet and p.o. fluid restriction. Monitor renal function closely. 2.Chronic kidney disease stage III. Renal ultrasound showed increased echotexture and no hydronephr osis. 3.Anemia. Monitor iron study, adjust treatment. Consider BRAN. 4.Hyperkalemia. Treatment was started and potassium level is stabilized and remains within stable r anges, is normal. EB/MODL Voice ID: [id number] Report ID: [id number]
[2018-01-14] MEDS: IPRATROPIUM BROM 0.5MG/2.5ML NEB SCH ×4 (02:05→20:07)
[2018-01-14 05:46] LABS: Protime INR 1.25
[2018-01-14 06:02] LABS: Albumin 2.7 g/dL (3.4-5.0); Phosphorus 3.1 mg/dL (2.5-4.9); Potassium 4.4 mmol/L (3.5-5.1)
[2018-01-14 06:26] VITALS: BMI 37.0
[2018-01-14] MEDS: INSULIN -REGULAR HUMAN 50 UNIT/0.5 ML ML SQ SCH ×4 (07:30→21:24)
[2018-01-14] MEDS: PANTOPRAZOLE 40MG TABLET PO SCH (10:16)
[2018-01-14] MEDS: FERROUS SULFATE 325 MG TAB PO SCH (10:16)
[2018-01-14] MEDS: HYDRALAZINE HCL 25 MG TABLET PO SCH ×2 (10:16→21:21)
[2018-01-14] MEDS: PREGABALIN 50 MG CAP PO SCH ×2 (10:16→21:21)
[2018-01-14] MEDS: SOD FERRIC GLUC COMPLX/SUCROSE 125 MG in NA CHLORIDE 0.9% 100 ML IV SCH (10:16)
[2018-01-14] MEDS: CITALOPRAM 10 MG TABLET PO SCH (10:16)
[2018-01-14] MEDS: MECLIZINE HCL 12.5 MG TAB PO SCH ×3 (10:16→21:22)
--- NOTE | 2018-01-14 13:03 | P.PN ---
Subjective Date of Service: 01/14/18 Chief Complaint: SOB /hyperkalemia/acute on chronic kidney disease/ coagulopathy Patient seen and examined at bedside with RN. Chart reviewed. Case discussed with nephrology at this time. Patient is currently off of Lasix. However does seem to be having generalized weakness today. Will await physical therapy to see the patient today and provide further recommendations Review of Systems 10-point ROS is otherwise unremarkable Physical Examination - Vital Signs Temperature: 97.3 F Blood Pressure: 144/63 Pulse: 77 Respirations: 20 Pulse Ox (%): 92 - Physical Exam General: Alert, In no apparent distress HEENT: Atraumatic, PERRLA, EOMI Neck: Supple, JVD not distended Respiratory: Clear to auscultation bilaterally, Normal air movement Cardiovascular: Regular rate/rhythm, Normal S1 S2 Gastrointestinal: Normal bowel sounds, No tenderness Musculoskeletal: No tenderness Integumentary: No rashes Neurological: Normal speech, Normal tone, Normal affect Lymphatics: No axilla or inguinal lymphadenopathy - Studies Microbiology Data (last 24 hrs): 01/08/18 23:04 Blood - Blood Aerobic Blood Culture - Final No growth in 5 days. 01/08/18 23:04 Blood - Blood Anaerobic Blood Culture - Final No growth in 5 days. 01/08/18 22:46 Blood - Blood Aerobic Blood Culture - Final No growth in 5 days. 01/08/18 22:46 Blood - Blood Anaerobic Blood Culture - Final No growth in 5 days. Medications List Reviewed: Yes Assessment And Plan - Current Problems (Diagnosis) (1) Acute kidney injury superimposed on chronic kidney disease Onset Date: 09/25/17 Current Visit: No Status: Acute Plan: Acute kidney injury with hyperkalemia -most likely secondary to cardio renal syndrome -Nephrology has been consulted on the case. Appreciated recommendations at this time -Lasix discontinued due to increasing creatinine and sodium -BUN and cr trending down (2) Atrial fibrillation Onset Date: 11/27/17 Current Visit: No Status: Chronic Plan: Patient currently on anti coagulation and beta-yunier for AFib controlled. -anticoagulation Restarted -restarted on beta-yunier here in the hospital -would check coagulation panel at this time Qualifiers: Atrial fibrillation type: chronic Qualified Code(s): I48.2 - Chronic atrial fibrillation (3) CAD (coronary artery disease) Onset Date: 11/27/17 Current Visit: No Status: Chronic Qualifiers: Coronary Disease-Associated Artery/Lesion type: [place] artery [place] vs. transplanted heart: [place] heart Associated angina: without angina Qualified Code(s): I25.10 - Atherosclerotic heart disease of [place] coronary artery without angina pectoris (4) CHF (congestive heart failure) Onset Date: 07/06/15 Current Visit: No Status: Chronic Qualifiers: Heart failure type: combined systolic and diastolic Heart failure chronicity: chronic Qualified Code(s): I50.42 - Chronic combined systolic ( congestive) and diastolic (congestive) heart failure (5) Depression with anxiety Current Visit: No Status: Chronic (6) Diabetes mellitus Onset Date: 07/06/15 Current Visit: No Status: Chronic Qualifiers: Diabetes mellitus type: type 2 Diabetes mellitus [facility] insulin use: with superintendent container terminal use Diabetes mellitus complication status: with kidney complications Diabetes mellitus complication detail: with chronic kidney disease Chronic kidney disease stage: stage 4 (severe) Qualified Code(s): E11.22 - Type 2 diabetes mellitus with diabetic chronic kidney disease; N18.4 - Chronic kidney disease, stage 4 (severe); Z79.4 - superintendent terminal (current) use of insulin (7) GERD (gastroesophageal reflux disease) Current Visit: No Status: Chronic Qualifiers: Esophagitis presence: esophagitis presence not specified Qualified Code(s) : K21.9 - Gastro-esophageal reflux disease without esophagitis (8) HTN (hypertension) Onset Date: 04/17/16 Current Visit: No Status: Chronic Qualifiers: Hypertension type: essential hypertension Qualified Code(s): I10 - Essential (primary) hypertension (9) Hyperlipidemia Onset Date: 11/27/17 Current Visit: No Status: Chronic Qualifiers: Hyperlipidemia type: pure hypercholesterolemia Qualified Code(s): E78.00 - Pure hypercholesterolemia, unspecified; E78.0 - Pure hypercholesterolemia - Plan Pending improvement at this time. Pending PT Evaluation at this time. Discharge Plan: Home Plan to discharge in: 48 Hours - Code Status/Comfort Care Code Status Assessed: Yes Critical Care: No
[2018-01-14] MEDS: WARFARIN SODIUM 2 MG TAB PO SCH (16:57)
[2018-01-14] MEDS: ALBUTEROL 2.5 MG/3 ML NEB SOL NEB SCH (20:07)
[2018-01-14] MEDS: ATORVASTATIN 40 MG TAB PO SCH (21:22)
[2018-01-14 21:24] LABS: Vitamin D 1,25-Dihydroxy Total 19 pg/mL (18-72); Vitamin D,1,25-OH2, D2 <8 pg/mL
[2018-01-15 00:06] LABS: Albumin, (SPE) 2.8 g/dL (3.8-4.8); Alpha-1-Globulins 0.3 g/dL (0.2-0.3); Alpha-2-Globulins 0.9 g/dL (0.5-0.9); Gamma Globulins 0.8 g/dL (0.8-1.7); INTERPRETATION REPORT
--- NOTE | 2018-01-15 02:59 | PN ---
Date of Progress Note: 01/14/2018 Chief Complaint: Acute on chronic kidney injury. Subjective: The patient is complaining of nonproductive cough. She is responding to nebulizers. Rajwinder schrader was taken off Lasix because of prerenal azotemia. The patient has nonoliguric urine output. Physical Examination: Lungs: Clear to auscultation bilaterally. Heart: S1, S2. Abdomen: Soft, benign. Extremities: Slight edema. Lab Work: Hemoglobin 8.8, WBC 7.0, and platelet count is 281,000. Sodium 135, potassium 4.4, chlori de 110, CO2 28, BUN 70, and creatinine 1.9. Impression And Plan: 1.Acute on chronic kidney injury, nonoliguric. Lasix on hold. Monitor urine output. Continue low- sodium diet. 2.Hypertension. Blood pressure in acceptable control. 3.Shortness of breath. Continue nebulizer. Check chest x-ray. 4.Hyperkalemia, resolved. Continue low-potassium diet. VAN/MODL Voice ID: [id number] Report ID: [id number]
[2018-01-15] MEDS: ALBUTEROL 2.5 MG/3 ML NEB SOL NEB SCH ×2 (03:16→19:36)
[2018-01-15] MEDS: IPRATROPIUM BROM 0.5MG/2.5ML NEB SCH ×4 (03:17→19:36)
[2018-01-15 05:58] LABS: Absolute Lymphocytes (CBC) 1.6 K/uL (0.7-4.9); Absolute Monocytes 0.5 K/uL (0.1-1.3); Absolute Neutrophil 4.6 K/uL (1.8-8.0); Hematocrit 23.3 % (36.0-45.0); Lymphocytes % 22.7 % (15.3-44.8); MCH 31.7 pg (27.0-35.0); MCV 95.9 fL (80-100); MPV 9.3 fL (7.6-11.3); Monocytes % 6.6 % (3.3-12.3); RBC Red Blood Cell Count 2.43 M/uL (3.86-4.86)
[2018-01-15 06:08] LABS: Magnesium 1.6 mg/dL (1.8-2.4); Potassium 5.1 mmol/L (3.5-5.1)
[2018-01-15] MEDS ORDERED: MAGNESIUM SULFATE 1 gm IVPB 1 GM/100 ML BAG IV ONE (07:00)
[2018-01-15] MEDS ORDERED: NA CHLORIDE 0.9% 50 ML ONE (07:40)
[2018-01-15] MEDS: MECLIZINE HCL 12.5 MG TAB PO SCH ×3 (08:33→20:47)
[2018-01-15] MEDS: HYDRALAZINE HCL 25 MG TABLET PO SCH ×3 (08:33→20:48)
[2018-01-15] MEDS: INSULIN -REGULAR HUMAN 50 UNIT/0.5 ML ML SQ SCH ×4 (08:33→20:47)
[2018-01-15] MEDS: SOD FERRIC GLUC COMPLX/SUCROSE 125 MG in NA CHLORIDE 0.9% 100 ML IV SCH (08:34)
[2018-01-15] MEDS: PANTOPRAZOLE 40MG TABLET PO SCH (08:34)
[2018-01-15] MEDS: CITALOPRAM 10 MG TABLET PO SCH (08:34)
[2018-01-15] MEDS: FERROUS SULFATE 325 MG TAB PO SCH (08:34)
[2018-01-15] MEDS: PREGABALIN 50 MG CAP PO SCH ×2 (08:36→20:47)
--- NOTE | 2018-01-15 11:36 | RAD REPORT ---
EXAM DESCRIPTION: RAD - Chest Single View - 01/15/2018 11:18 am CLINICAL HISTORY: COPD, shortness of breath COMPARISON: January 12 TECHNIQUE: AP portable chest image was obtained 1109 hours . FINDINGS: Lung volumes remain low. Diffusely fibrotic lung pattern is similar to the prior study. Pe rihilar markings have diminished. Cardiomegaly remains. No new or enlarging pleural effusion. No pneu mothorax. No acute bony abnormality seen. No acute aortic findings suspected. IMPRESSION: Extensive baseline interstitial fibrotic changes are present. The interstitial edema or infiltrate pattern seen January 12 has significantly improved.
--- NOTE | 2018-01-15 15:42 | P.DS ---
Admission Date: 01/09/18 Discharge Date: 01/15/18 Primary Care Provider: Dr. Noman Laura; Nephrology-Dr. Jauregui Disposition: DC HOME/HOME HEALTH CARE Discharge Condition: GOOD Reason for Admission: SOB /hyperkalemia/acute on chronic kidney disease/ coagulopathy Consultations: Nephrology-Dr. Jauregui Procedures: CXR: COMPARISON: January 12 TECHNIQUE: AP portable chest image was obtained 1109 hours . FINDINGS: Lung volumes remain low. Diffusely fibrotic lung pattern is similar to the prior study. Perihilar markings have diminished. Cardiomegaly remains. No new or enlarging pleural effusion. No pneumothorax. No acute bony abnormality seen. No acute aortic findings suspected. IMPRESSION: Extensive baseline interstitial fibrotic changes are present. The interstitial edema or infiltrate pattern seen January 12 has significantly improved. Renal US: COMPARISON: 2016 FINDINGS: The right kidney measures 8 cm with a normal echotexture. The left kidney measures 8 cm with a normal echotexture. Hydronephrosis is not seen. No gross abnormality of bladder is seen IMPRESSION: Unremarkable renal ultrasound. Medical problem list: Acute on chronic renal disease, stage IV Chronic combined CHF on home oxygen Hyperkalemia resolved Atrial fibrillation on chronic anti coagulation therapy CAD Hypertension Diabetes mellitus type 2, insulin-dependent Diabetic neuropathy Depression GERD Anemia with iron deficiency Hyperlipidemia Obesity, BMI 37 Brief History of Present Illness: 77-year-old female presented to emergency room with increasing shortness of breath and fatigue. Patient with acute on chronic renal failure with hyperkalemia along with chronic combined CHF. Patient was admitted for treatment and evaluation. Hospital Course: Patient presented with shortness of breath and fatigue. This was secondary to acute on chronic kidney disease with noted hyperkalemia. Patient with stage IV disease. Patient was admitted for treatment and evaluated by nephrology. Medications were adjusted. Patient diuresed. Symptoms improved. At discharge patient requires home oxygen. At discharge nephrology recommends that the patient continue with Lasix 20 mg daily. Recommendation to recheck BMP in 1 week. Recommendation to follow up with Nephrology in 2 weeks to follow up this hospitalization. The patient will continue with home health and physical therapy at discharge. Patient with chronic combined CHF. Patient requires home oxygen. This will be set up prior to discharge. She will continue with a 1500 cc per day fluid restriction and low-salt diet. Patient will continue to monitor her weight daily. If her weight increases by more than 5 lb she is to contact nephrology for further recommendation. Patient has atrial fibrillation on chronic anti coagulation therapy. At discharge she will continue with Coumadin 2 mg daily. Recommendation is to maintain INR between 2 and 3. Further monitoring of her INR can be done by cardiology or her PCP. Recommendation to recheck INR within 1 week. Patient has hypertension. Patient will continue with her medication- hydralazine 25 mg 1 pill twice daily. Recommendation is to maintain blood pressures less 150/80. Further adjustment can be done by her PCP. Patient has diabetes mellitus type 2. She will continue with her medication- Tresiba 40 units subcu at bedtime. Recommendation is to maintain blood sugars less than 140 fasting and less than 200 after meals. Further adjustment can be done by her PCP. Patient has depression. She will continue with her medication-Celexa 20 mg daily. Patient has GERD. She will continue with her medication- Protonix 40 mg daily. Patient with anemia with iron deficiency. Patient received IV iron. Recommendation is to continue with iron 325 mg daily. Recommendation to recheck lab-CBC in 1 week. This can be further monitored and addressed by a nephrology. Patient has hyperlipidemia. She will continue with her medication- Lipitor 40 mg daily. Patient with diabetic neuropathy. Patient will continue with Lyrica 50 mg 1 pill twice daily. Vital Signs/Physical Exam: Temp Pulse Resp BP Pulse Ox 97.9 F 78 18 139/67 99 01/15/18 12:00 01/15/18 12:00 01/15/18 12:00 01/15/18 12:00 01/15/18 12:00 General: Alert, In no apparent distress, Oriented x3, Cooperative HEENT: Atraumatic Neck: Supple Respiratory: Clear to auscultation bilaterally, Normal air movement Cardiovascular: Normal pulses, Regular rate/rhythm Gastrointestinal: Normal bowel sounds, Soft and benign, Non-distended, No tenderness, No masses, No rebound, No guarding Musculoskeletal: No erythema, No tenderness, No warmth Integumentary: No tenderness/swelling, No erythema, No warmth, No cyanosis Neurological: Normal speech, Normal strength at 5/5 x4 extr, Normal tone, Normal affect Laboratory Data at Discharge: WBC 7.1 K/uL (4.3-10.9) 01/15/18 05:40 Hgb 7.7 g/dL (12.0-15.0) L* 01/15/18 05:40 Hct 23.3 % (36.0-45.0) L 01/15/18 05:40 Plt Count 255 K/uL (152-406) 01/15/18 05:40 PT 14.8 SECONDS (9.5-12.5) H 01/14/18 05:23 INR 1.25 01/14/18 05:23 APTT 44.0 SECONDS (24.3-36.9) H 01/13/18 12:26 Sodium 141 mmol/L (136-145) 01/15/18 05:40 Potassium 5.1 mmol/L (3.5-5.1) 01/15/18 05:40 BUN 71 mg/dL (7-18) H 01/15/18 05:40 Creatinine 2.20 mg/dL (0.55-1.3) H 01/15/18 05:40 Glucose 255 mg/dL (74-106) H 01/15/18 05:40 Uric Acid 6.3 mg/dL (2.6-6.0) H 01/10/18 05:41 Phosphorus 3.1 mg/dL (2.5-4.9) 01/14/18 05:23 Magnesium 1.6 mg/dL (1.8-2.4) L 01/15/18 05:40 Total Bilirubin 0.3 mg/dL (0.2-1.0) 01/10/18 05:41 AST 13 U/L (15-37) L 01/10/18 05:41 ALT 16 U/L (12-78) 01/10/18 05:41 Alkaline Phosphatase 105 U/L (45-117) 01/10/18 05:41 Troponin I < 0.02 ng/mL (0.0-0.045) 01/09/18 05:31 Lipase 114 U/L (73-393) 01/08/18 22:46 Home Medications: Anastrozole [Arimidex*] 1 mg PO DAILY 01/09/18 Atorvastatin Calcium 40 mg PO BEDTIME 01/09/18 Citalopram Hydrobromide [Celexa] 20 mg PO DAILY 01/09/18 Ferrous Sulfate 325 mg PO DAILY 01/09/18 Hydralazine [Apresoline*] 25 mg PO BID 01/09/18 Insulin Degludec [Tresiba Flextouch U-200] 40 unit SQ BEDTIME 01/09/18 Meclizine HCl 25 mg PO TID 01/09/18 Pantoprazole [Protonix Tab*] 40 mg PO DAILY 01/09/18 Pregabalin [Lyrica*] 50 mg PO BID 01/09/18 Warfarin Sodium [Coumadin] 2 mg PO DAILY 01/09/18 Furosemide [Lasix] 20 mg PO DAILY #30 tab 01/15/18 New Medications: Furosemide [Lasix] 20 mg PO DAILY #30 tab Patient Discharge Instructions: 1. Patient will need to follow up with a PCP in 1 week to follow up this hospitalization. 2. Patient presented with shortness of breath and fatigue. This was secondary to acute on chronic kidney disease with noted hyperkalemia. Patient with stage IV disease. Patient was admitted for treatment and evaluated by nephrology. Medications were adjusted. Patient diuresed. Symptoms improved. At discharge patient requires home oxygen. At discharge nephrology recommends that the patient continue with Lasix 20 mg daily. Recommendation to recheck BMP in 1 week. Recommendation to follow up with Nephrology in 2 weeks to follow up this hospitalization. Patient will continue with home health and physical therapy at discharge. 3. Patient with chronic combined CHF. Patient requires home oxygen. This will be set up prior to discharge. She will continue with a 1500 cc per day fluid restriction and low-salt diet. Patient will continue to monitor her weight daily. If her weight increases by more than 5 lb she is to contact nephrology for further recommendation. 4. Patient has atrial fibrillation on chronic anti coagulation therapy. At discharge she will continue with Coumadin 2 mg daily. Recommendation is to maintain INR between 2 and 3. Further monitoring of her INR can be done by cardiology or her PCP. Recommendation to recheck INR within 1 week. 5. Patient has hypertension. Patient will continue with her medication-hydralazine 25 mg 1 pill twice daily. Recommendation is to maintain blood pressures less 150/80. Further adjustment can be done by her PCP. 6. Patient has diabetes mellitus type 2. She will continue with her medication- Tresiba 40 units subcu at bedtime. Recommendation is to maintain blood sugars less than 140 fasting and less than 200 after meals. Further adjustment can be done by her PCP. 7. Patient has depression. She will continue with her medication-Celexa 20 mg daily. 8. Patient has GERD. She will continue with her medication- Protonix 40 mg daily. 9. Patient with anemia with iron deficiency. Patient received IV iron. Recommendation is to continue with iron 325 mg daily. Recommendation to recheck lab-CBC in 1 week. This can be further monitored and addressed by a nephrology. 10. Patient has hyperlipidemia. She will continue with her medication- Lipitor 40 mg daily. 11. Patient with diabetic neuropathy. Patient will continue with Lyrica 50 mg 1 pill twice daily. Diet: Renal Activity: Fall precautions Followup: Oziel Jauregui MD [ACTIVE - CAN ADMIT] - (follow up in one week post discharge) Time spent managing pt's care (in minutes): 55
[2018-01-15] MEDS: ACETAMINOPHEN 500 MG TAB PO PRN (16:25)
[2018-01-15] MEDS: WARFARIN SODIUM 2 MG TAB PO SCH (17:41)
--- NOTE | 2018-01-15 19:12 | PN ---
Date of Progress Note: 01/15/2018 History: The patient was admitted with acute kidney injury secondary to cardiorenal, being diuresed, then her kidney function has declined. For that reason, diuresing was discontinued, maintaining her off diuresis. The patient feeling slightly better, still have shortness of breath, but requiring ho me oxygen. Physical Examination: Vital Signs: Blood pressure 179/73, pulse of 85. Chest: Crackles bilateral base. Heart: S1, S2. Regular. Abdomen: Soft. Nontender. Extremity: Trace edema. Laboratory Data: WBC 7.1, H and H 7.7/23.3, platelets 255. Sodium 141, potassium 5.1, bicarb 28, BU N 71, creatinine 2.2, calcium 7.7, magnesium 1.6. Current Medications: The patient on its include: 1.Albuterol. 2.IV iron. 3.Coumadin. 4.Hydralazine 25 b.i.d. 5.Atorvastatin. 6.Citalopram. 7.Lyrica. 8.Meclizine. 9.Pantoprazole. Assessment And Plan: 1.Acute kidney injury secondary to poor perfusion, acute tubular necrosis, recover, looks to me slig htly on the wet side. I am going to go ahead and resume Lasix at 20 mg daily. The patient will be c leared from the renal standpoint for discharge planning to follow up in the office in 2-3 weeks with chemistry. 2.Hypertension, uncontrolled. I am going to go ahead and increase her hydralazine to 25 mg 3 times a day. 3.Interstitial lung disease. Follow up with Pulmonary. MALLY/SERGO Voice ID: [id number] Report ID: [id number]
[2018-01-15] MEDS: ATORVASTATIN 40 MG TAB PO SCH (20:48)
[2018-01-16] MEDS: ALBUTEROL 2.5 MG/3 ML NEB SOL NEB SCH (01:15)
[2018-01-16] MEDS: IPRATROPIUM BROM 0.5MG/2.5ML NEB SCH ×2 (01:15→07:35)
[2018-01-16 06:17] LABS: Magnesium 2.1 mg/dL (1.8-2.4)
[2018-01-16 06:50] LABS: Absolute Lymphocytes (CBC) 1.1 K/uL (0.7-4.9); Absolute Monocytes 0.4 K/uL (0.1-1.3); Basophils % 0.8 % (0-1.3); Eosinophils % 3.8 % (0-4.4); Hematocrit 23.9 % (36.0-45.0); Lymphocytes % 15.9 % (15.3-44.8); MCH 31.4 pg (27.0-35.0); MCV 95.6 fL (80-100); MPV 9.8 fL (7.6-11.3); Monocytes % 5.7 % (3.3-12.3)
[2018-01-16] MEDS: HYDRALAZINE HCL 25 MG TABLET PO SCH (08:36)
[2018-01-16] MEDS: CITALOPRAM 10 MG TABLET PO SCH (08:36)
[2018-01-16] MEDS: FERROUS SULFATE 325 MG TAB PO SCH (08:36)
[2018-01-16] MEDS: MECLIZINE HCL 12.5 MG TAB PO SCH (08:36)
[2018-01-16] MEDS: PREGABALIN 50 MG CAP PO SCH (08:36)
[2018-01-16] MEDS: INSULIN -REGULAR HUMAN 50 UNIT/0.5 ML ML SQ SCH (08:37)
[2018-01-16] MEDS: PANTOPRAZOLE 40MG TABLET PO SCH (08:37)
[2018-01-16] MEDS: SOD FERRIC GLUC COMPLX/SUCROSE 125 MG in NA CHLORIDE 0.9% 100 ML IV SCH (09:00)
[2018-01-16 09:58] VITALS: O2SAT 99
[2018-01-16 10:05] VITALS: BP 151/79; TEMP 96.9
--- NOTE | 2018-01-16 11:40 | PN ---
Date of Progress Note: 01/16/2018 Subjective: The patient doing well. The patient off oxygen, today feeling better. The patient was admitted with acute kidney injury, cardiorenal recover very well, in the beginning she was diuresed a nd diuresis was held. Physical Examination: Vital Signs: When I saw the patient, blood pressure of 151/79, pulse of 86, afebrile. Chest: Faint crackles bilateral base. Heart: S1 and S2. Systolic murmur. Abdomen: Soft, nontender. Extremities: Trace edema. Laboratory Data: WBC 6.8, H and H 7.9/23.9, and platelets 228. Sodium 138, potassium 5, bicarb 25, BUN 75, creatinine 2.3, calcium 8.2, phosphorus 2.1. Vitamin D level is low. TSH 3.8. Serum protei n electrophoresis showing albumin loss, protein creatinine is 0.6. Current Medications: The patient on its include: IV iron, atorvastatin, hydralazine 25 t.i.d., dada min C, Lyrica, breathing treatment, Zofran, pantoprazole. Assessment And Plan: 1.Acute kidney injury, normal sized kidney stable, look to me still on the wet side. I am going to go ahead and resume her Lasix 20 mg daily and we will monitor. 2.Iron deficiency anemia. Continue IV iron. 3.Congestive heart failure. We will resume Lasix. The patient is going to need a followup in 2 weeks with chemistry. 4.Interstitial lung disease as by Pulmonary. MALLY/SERGO Voice ID: [id number] Report ID: [id number]
[2018-01-17] MEDS ORDERED: FUROSEMIDE 20 MG/ 2ML VIAL IV SCH (09:00)
== END 2018-01-16 11:33 | disposition home health service (06) | DRG 291 ==
LOC: ER 21:51 → ERHOLD 01-09 01:16 → 2ND 01-09 02:57
PROVIDERS: ADMIT Hospitalist; ATTEND Family Medicine
DX: I13.0 Hypertensive heart and chronic kidney disease with heart failure and stage 1 through stage 4 chronic kidney disease, or unspecified chronic kidney disease (principal); N17.0 Acute kidney failure with tubular necrosis; N18.4 Chronic kidney disease, stage 4 (severe); I50.42 Chronic combined systolic (congestive) and diastolic (congestive) heart failure; N17.9 Acute kidney failure, unspecified; D68.9 Coagulation defect, unspecified; D68.32 Hemorrhagic disorder due to extrinsic circulating anticoagulants; J84.9 Interstitial pulmonary disease, unspecified; E11.22 Type 2 diabetes mellitus with diabetic chronic kidney disease; Z79.4 Long term (current) use of insulin; E87.5 Hyperkalemia; I48.91 Unspecified atrial fibrillation; Z79.01 Long term (current) use of anticoagulants; I25.10 Atherosclerotic heart disease of native coronary artery without angina pectoris; E11.40 Type 2 diabetes mellitus with diabetic neuropathy, unspecified; F32.9 Major depressive disorder, single episode, unspecified; K21.9 Gastro-esophageal reflux disease without esophagitis; D50.9 Iron deficiency anemia, unspecified; E78.5 Hyperlipidemia, unspecified; E66.9 Obesity, unspecified; Z68.37 Body mass index [BMI] 37.0-37.9, adult; T45.515A Adverse effect of anticoagulants, initial encounter; Y92.019 Unspecified place in single-family (private) house as the place of occurrence of the external cause; Z95.5 Presence of coronary angioplasty implant and graft
CPT/HCPCS: 36415; 71045; 76770; 80048; 80053; 80069; 80076; 81003; 81015; 82550; 82553; 82570; 82652; 82728; 82746; 82962; 83540; 83690; 83735; 83880; 83930; 83935; 84100; 84132; 84156; 84165; 84439; 84443; 84466; 84484; 84550; 85025; 85044; 85379; 85610; 85730; 86850; 86900; 86901; 87040; 87070; 87086; 87088; 87205; 93005; 94640; 96374; 96375; 97163; 99285; J0610; J1940; J2916; J3475; J7030

== ENCOUNTER 2018-01-31 18:05 | Emergency (ER) | payer OTHER ==
--- OUTSIDE RECORDS SUMMARY | 2018-01-31 18:08 | XMS REPORT ---
[...] Status Dosage System Date Date FreeStyle Lite [facility] 44289486356 0 Active CHECK Test BLOOD SUGAR TWICE DAILY Lipitor [facility] 17891122499 40 MG Active 1 TAB(S) ONCE A DAY ORALLY Losartan [facility] 70666039257 100 MG Orally Active 1 tablet Potassium Once a day Meclizine HCl [facility] 83228056404 25 Active CHEW AND SWALLOW 1 TABLET THREE TIMES DAILY Flonase Allergy [facility] 91924409349 50 MCG/ACT Active 1 spray in Relief Nasally Once a each day nostril Ferrous Sulfate [facility] 92136260261 325 (65 Fe) MG Active 1 tablet Orally Once a day Tresiba FlexTouch [facility] 59273403224 200 UNIT/ML Active 70 UNITS Subcutaneous DAILY Increase 2 untis after 3 day if BS are high Citalopram [facility] 68170171424 20 MG Orally Active 1 tablet Hydrobromide Once a day Chlorthalidone [facility] 85352547000 25 MG Orally Active 1 tablet Once a day in the morning with food Tresiba FlexTouch [facility] 26663220415 200 UNIT/ML Active not Subcutaneous defined Anastrozole [facility] 01176381222 1 MG Orally Active 1 tablet Once a day Topamax [facility] 26257544236 50 MG Orally Active 1 tablet Once a day Protonix [facility] 37742183839 40 MG Active 1 TAB(S) ONCE A DAY ORALLY Lipitor [facility] 27652670678 40 MG Orally Active 1 tablet Once a day Coumadin [facility] 44718595659 2 MG Orally Active 1 tablet Once a day BD Pen Needle [facility] 82210067023 0 Active USE DAILY Short U/F Citalopram [facility] 61384651994 20 Active TAKE 1 Hydrobromide TABLET BY MOUTH EVERY DAY Protonix [facility] 66725587425 40 MG Orally Active 1 tablet Once a day Results No Known Results Summary Purpose eClinicalWorks Submission
--- OUTSIDE RECORDS SUMMARY | 2018-01-31 18:08 | XMS REPORT ---
:1940 Author Organization eClinicalWorks Care Team Providers Name Role Phone Valentín [facility] Provider Role Unavailable Allergies No [...] Start End Date Status Dosage System Date [facility] 68038343123 200 UNIT/ML Active 70 UNITS FlexTouch Subcutaneous DAILY Increase 2 untis after 3 day if BS are high Results No Known Results Summary Purpose eClinicalWorks Submission
--- OUTSIDE RECORDS SUMMARY | 2018-01-31 18:08 | XMS REPORT ---
:1940 Author Organization eClinicalWorks Care Team Providers Name Role Phone Laura, [facility] Provider Role Unavailable Allergies, Adverse Reactions, [...] End Status Dosage System Date Date Citalopram [facility] 03627368189 20 MG Orally Active 1 tablet Hydrobromide Once a day Coumadin ND 19545942260 2 MG Orally Active 1 tablet Once a day Lipitor ND 23195323510 40 MG Active 1 TAB(S) ONCE A DAY ORALLY Meclizine HCl ND 63218850958 25 MG Orally Active 1 tablet Three times a day Ferrous Sulfate ND 71517096260 325 (65 Fe) MG May Active 1 tablet Orally Once a 2017 day Tresiba FlexTouch ND 66088774125 200 UNIT/ML Active not Subcutaneous defined Chlorthalidone ND 72559163553 25 MG Orally Active 1 tablet Once a day in the morning with food FreeStyle Lite [facility] 19749633089 0 Active CHECK Test BLOOD SUGAR TWICE DAILY Flonase Allergy [facility] 55208088502 50 MCG/ACT Active 1 spray in Relief Nasally Once a each day nostril Meclizine HCl [facility] 35820541656 25 Active CHEW AND SWALLOW 1 TABLET THREE TIMES DAILY Anastrozole [facility] 40738342596 1 MG Orally Active 1 tablet Once a day Protonix [facility] 08112612858 40 MG Active 1 TAB(S) ONCE A DAY ORALLY Losartan [facility] 41490146586 100 MG Orally Active 1 tablet Potassium Once a day Topamax [facility] 51727904322 50 MG Orally Active 1 tablet Once a day Protonix [facility] 61047669337 40 MG Orally Active 1 tablet Once a day Tresiba FlexTouch [facility] 93494132383 200 UNIT/ML Active 40 UNITS DAILY Results No Known Results Summary Purpose eClinicalWorks Submission
--- OUTSIDE RECORDS SUMMARY | 2018-01-31 18:08 | XMS REPORT ---
[...] End Status Dosage System Date Date Anastrozole [facility] 68158799631 1 MG Orally Active 1 tablet Once a day Lipitor [facility] 47665846972 40 MG Orally Active 1 tablet Once a day Protonix [facility] 19194124717 40 MG Orally Active 1 tablet Once a day Topamax [facility] 21191966048 50 MG Orally Active 1 tablet Once a day Ferrous Sulfate [facility] 00493546519 325 (65 Fe) MG Active 1 tablet Orally Once a day Lipitor [facility] 05336476020 40 Active 1 TAB(S) ONCE A DAY ORALLY Tresiba FlexTouch [facility] 33719269132 200 UNIT/ML Active 70 UNITS Subcutaneous DAILY Increase 2 untis after 3 day if BS are high HydrALAZINE HCl [facility] 81747925557 25 MG Orally Active 1 tablet Two times a day with food Tresiba FlexTouch [facility] 26992703369 200 UNIT/ML Active not Subcutaneous defined Tresiba FlexTouch [facility] 74544792844 200 UNIT/ML Active INJECT 70 UNITS UNDER THE SKIN EVERY DAY INCREASE 2 UNITS AFTER 3 DAYS IF BLOOD SUGAR IS HIGH FreeStyle Lite [facility] 42701743654 0 Active CHECK Test BLOOD SUGAR TWICE DAILY Losartan [facility] 71612278939 100 MG Orally Inactive 1 tablet Potassium Once a day Pantoprazole [facility] 33048085263 40 Active TAKE 1 Sodium TABLET BY MOUTH EVERY DAY Citalopram [facility] 91094044464 20 Active TAKE 1 Hydrobromide TABLET BY MOUTH EVERY DAY Meclizine HCl [facility] 89981669229 25 Active CHEW AND SWALLOW 1 TABLET THREE TIMES DAILY Citalopram [facility] 36510592152 20 MG Orally Active 1 tablet Hydrobromide Once a day Coumadin [facility] 85295094787 2 MG Orally Active 1 tablet Once a day Lipitor [facility] 80416545774 40 MG Active 1 TAB(S) ONCE A DAY ORALLY Chlorthalidone [facility] 91130900658 25 MG Orally Inactive 1 tablet Once a day in the morning with food Flonase Allergy [facility] 17969107188 50 MCG/ACT Active 1 spray in Relief Nasally Once a each day nostril Protonix [facility] 17679989758 40 MG Active 1 TAB(S) ONCE A DAY ORALLY BD Pen Needle [facility] 90845046927 0 Active USE DAILY Short U/F Results No Known Results Summary Purpose eClinicalWorks Submission
--- OUTSIDE RECORDS SUMMARY | 2018-01-31 18:09 | XMS REPORT ---
:1940 Author Organization eClinicalWorks Care Team Providers Name Role Phone Valentín [facility] Provider Role Unavailable Allergies No [...] Start End Date Status Dosage System Date [facility] 82156864529 - Oct 11, Active as directed Lancets 2018 Results No Known Results Summary Purpose [employer] Submission
--- OUTSIDE RECORDS SUMMARY | 2018-01-31 18:09 | XMS REPORT ---
:1940 Author Organization eClinicalWorks Care Team Providers Name Role Phone Valentín [facility] Provider Role Unavailable Allergies No Known Allergies [...] Status Dosage System Date Date Ferrous Sulfate [facility] 06052589287 325 (65 Fe) MG Active 1 tablet Orally Once a day FreeStyle Lite [facility] 14424890578 0 Active CHECK BLOOD Test SUGAR TWICE DAILY Citalopram [facility] 09730481449 20 Active TAKE 1 Hydrobromide TABLET BY MOUTH EVERY DAY Meclizine HCl [facility] 36103994154 25 Active CHEW AND SWALLOW 1 TABLET THREE TIMES DAILY Lipitor ND 45784061208 40 MG Orally Active 1 tablet Once a day Flonase Allergy ND 24234452944 50 MCG/ACT Active 1 spray in Relief Nasally Once a each day nostril Pantoprazole [facility] 39315279922 40 Active TAKE 1 Sodium TABLET BY MOUTH EVERY DAY FreeStyle [facility] 08527365980 - Oct 11, Active as directed Lancets 2018 HydrALAZINE HCl [facility] 32448580515 25 MG Orally Active 1 tablet Two times a day with food Lyrica [facility] 89077455453 50 MG Orally Oct 30, Active 1 capsule Twice a day 2017 BD Pen Needle [facility] 99880347257 0 Active USE DAILY Short U/F Anastrozole [facility] 25216100987 1 MG Orally Active 1 tablet Once a day Topamax [facility] 38032782694 50 MG Orally Active 1 tablet Once a day Coumadin [facility] 18034671554 2 MG Orally Active 1 tablet Once a day Tresiba [facility] 74757332281 200 UNIT/ML Active INJECT 70 FlexTouch UNITS UNDER THE SKIN EVERY DAY INCREASE 2 UNITS AFTER 3 DAYS IF BLOOD SUGAR IS HIGH Results No Known Results Summary Purpose eClinicalWorks Submission
--- NOTE | 2018-01-31 19:25 | RAD REPORT ---
EXAM DESCRIPTION: CT - Head Brain Wo Cont - 01/31/2018 7:17 pm CLINICAL HISTORY: HEADACHE Drowsiness COMPARISON: Head Brain Wo Cont dated 11/23/2017; Head Brain Wo Cont dated 09/29/2017Head Brain Wo Con t dated 11/23/2017; Head Brain Wo Cont dated 09/29/2017 TECHNIQUE: All CT scans are performed using dose optimization technique as appropriate and may inclu de automated exposure control or mA/KV adjustment according to patient size. FINDINGS: No intracranial hemorrhage, hydrocephalus or extra-axial fluid collection.No areas of brai n edema or evidence of midline shift. The paranasal sinuses and mastoids are clear. The calvarium is intact. IMPRESSION: No acute intracranial abnormality.
[2018-01-31 19:27] LABS: Absolute Monocytes 0.5 K/uL (0.1-1.3); Absolute Neutrophil 5.2 K/uL (1.8-8.0); Eosinophils % 4.3 % (0-4.4); Hematocrit 26.6 % (36.0-45.0); Lymphocytes % 24.9 % (15.3-44.8); MPV 10.2 fL (7.6-11.3); Monocytes % 5.8 % (3.3-12.3); RBC Red Blood Cell Count 2.74 M/uL (3.86-4.86)
[2018-01-31 19:30] LABS: Urine RBC NONE SEEN /HPF (NONE SEEN)
[2018-01-31 19:31] LABS: Urine Bacteria >50 /HPF (<20); Urine Culture Reflex Order REFLEXED
[2018-01-31 19:32] LABS: Protime INR 1.69
[2018-01-31 19:52] LABS: ALT/SGPT 16 U/L (12-78); AST/SGOT 8 U/L (15-37); Albumin 3.1 g/dL (3.4-5.0); Alkaline Phosphatase 169 U/L (45-117); BUN Blood Urea Nitrogen 56 mg/dL (7-18); Bicarbonate 26 mmol/L (21-32); Bilirubin Direct < 0.1 mg/dL (0-0.2); Bilirubin Total 0.3 mg/dL (0.2-1.0); Potassium 5.3 mmol/L (3.5-5.1); Protein, Total 6.7 g/dL (6.4-8.2); Sodium Level 134 mmol/L (136-145)
[2018-01-31 19:54] LABS: Glucose Level 495 mg/dL (74-106)
[2018-01-31 20:15] LABS: Urine Blood NEGATIVE (NEG); Urine Glucose 2+ (NEG); Urine Protein TRACE (NEG); Urine pH 5.5 (5.0-7.0)
[2018-01-31] MEDS ORDERED: NA CHLORIDE 0.9% 500 ML ONE ×2 (20:21→21:55)
[2018-01-31] MEDS ORDERED: CEFTRIAXONE/SWI 1gm 1 GM/10 ML SYR ONE (20:21)
[2018-01-31] MEDS ORDERED: INSULIN -REGULAR HUMAN 50 UNIT/0.5 ML ML ONE ×2 (20:33→21:54)
[2018-01-31] MEDS ORDERED: SOD POLYSTYREN SUL 15 GM/60 ML UCUP ONE ×2 (20:35→21:03)
[2018-01-31] MEDS ORDERED: ONDANSETRON 4 MG/2 ML VIAL ONE (22:54)
--- NOTE | 2018-01-31 23:00 | ER ---
Nurse's Notes [facility] Name: Sarah Garcia Age: 77 yrs Sex: Female : 1940 Arrival Date: 01/31/2018 Time: 18:18 Bed 27 Private MD: Diagnosis: Hyperglycemia, unspecified;Urinary tract infection, site not specified;Headache Presentation: 01/31 18:19 Presenting complaint: EMS states: patient has been having headache since lunch time. mg2 denies n/v, chest pain. BGL- 496 mg/dl on scene. Transition of care: patient was not received from another setting of care. Onset of symptoms was January 31, 2018 at 12:00. Risk Assessment: Do you want to hurt yourself or someone else? Patient reports no desire to harm self or others. Initial Sepsis Screen: Does the patient meet any 2 criteria? No. Patient's initial sepsis screen is negative. Does the patient have a suspected source of infection? No. Patient's initial sepsis screen is negative. Care prior to arrival: None. 18:19 Method Of Arrival: EMS: [facility] mg2 18:19 Acuity: CHRISS 3 mg2 Historical: - Allergies: 18:25 QUINOLONES; mg2 - Home Meds: 22:05 alprazolam 0.25 mg Oral tab PRN [Active]; Altace 2.5 mg Oral cap once daily [Active]; mg2 Ambien Oral [Active]; anastrozole 1 mg Oral tab 1 tab once daily [Active]; aspirin 81 mg Oral chew 1 tab once daily [Active]; atorvastatin 40 mg Oral tab 1 tab once daily [Active]; chlorthalidone 25 mg Oral tab 1 tab once daily [Active]; citalopram 20 mg tab 1 tab once daily [Active]; ferrous sulfate 325 mg (65 mg iron) Oral tab [Active]; meclizine 25 mg Oral tab [Active]; metoprolol succinate 100 mg Oral Tb24 0.5 tab once daily [Active]; pantoprazole 40 mg Oral TbEC 1 tab once daily [Active]; sitagliptin 30mg Oral 1 tab once daily [Active]; Tresiba FlexTouch U-200 200 unit/mL (3 mL) subcutaneous inpn 58 unit nightly [Active]; Vitamin D3 Oral [Active]; - PMHx: 18:25 Atrial Fib; Cancer, Breast; Diabetes - IDDM; GERD; High Cholesterol; Hypertension; mg2 Myocardial infarction; stage 4 kidney disease; - PSHx: 18:25 Heart stents; mg2 22:05 abdominal surgery; mg2 - Immunization history:: Flu vaccine is not up to date. - Social history:: Smoking status: Patient/guardian denies using tobacco, Patient/guardian denies using alcohol, street drugs, IV drugs. - Ebola Screening: : No symptoms or risks identified at this time. Screenin:26 Abuse screen: Denies threats or abuse. Denies injuries from another. Nutritional mg2 screening: No deficits noted. Tuberculosis screening: No symptoms or risk factors identified. Fall Risk Gait- Weak (10 pts.). Assessment: 18:26 General: Appears in no apparent distress. comfortable, Behavior is calm, cooperative. mg2 Pain: Complains of pain in head Pain does not radiate. Pain currently is 8 out of 10 on a pain scale. Quality of pain is described as aching, Pain began gradually, today Is intermittent. Neuro: Level of Consciousness is awake, alert, obeys commands, Oriented to person, place, time, situation, Reports headache. 19:26 Cardiovascular: Capillary refill < 3 seconds Patient's skin is warm and dry. mg2 Respiratory: Airway is patent Respiratory effort is even, unlabored, Respiratory pattern is regular, symmetrical. GI: No signs and/or symptoms were reported involving the gastrointestinal system. : No signs and/or symptoms were reported regarding the genitourinary system. Urine is cloudy. EENT: No signs and/or symptoms were reported regarding the EENT system. Derm: Skin is intact, is healthy with good turgor, Skin is pink, warm \T\ dry. normal. Musculoskeletal: Circulation, motion, and sensation intact. Capillary refill < 3 seconds. 19:27 Reassessment: critical lab values Glucose-488 mg/dl relayed by [employer] for [employer]. mg2 Provider informed. 20:56 Reassessment: Patient appears in no apparent distress at this time. Patient and/or mg2 family updated on plan of care and expected duration. Pain level reassessed. Patient is alert, oriented x 3, equal unlabored respirations, skin warm/dry/pink. 21:52 Reassessment: Patient appears in no apparent distress at this time. Patient and/or mg2 family updated on plan of care and expected duration. Pain level reassessed. Patient is alert, oriented x 3, equal unlabored respirations, skin warm/dry/pink. 22:09 Reassessment: Bandar Garcia-son . mg2 Vital Signs: 18:21 BP 161 / 62; Pulse 76; Resp 18; Temp 98.9(O); Pulse Ox 100% on 2 lpm NC; Weight 58.97 mg2 kg; Height 5 ft. 0 in. (152.40 cm); Pain 8/10; 19:26 BP 174 / 72; Pulse 78; Resp 18; Pulse Ox 100% on R/A; mg2 19:47 BP 162 / 62; Pulse 73; Resp 18; Pulse Ox 98% on 2 lpm NC; mg2 20:56 BP 178 / 58; Pulse 71; Resp 18; Pulse Ox 100% on 2 lpm NC; Pain 0/10; mg2 21:52 BP 122 / 46; Pulse 65; Resp 18; Pulse Ox 100% on 2 lpm NC; Pain 0/10; mg2 23:15 BP 125 / 80; Pulse 70; Resp 18; Pulse Ox 100% on R/A; Pain 0/10; mg2 18:21 Body Mass Index 25.39 (58.97 kg, 152.40 cm) mg2 ED Course: 18:18 Patient arrived in ED. mg2 18:19 Everett Rm, MARANDA is Primary Nurse. mg2 18:21 Triage completed. mg2 18:26 Arm band placed on. mg2 18:45 Initial lab(s) drawn, by me, sent to lab. jp3 18:54 Buck Parekh NP is PHCP. pm1 18:54 Daniel Rosenberg MD is Attending Physician. pm1 19:[address] vm2 19:18 CT Head Brain wo Cont In Process Unspecified. EDMS 19:19 Inserted saline lock: 24 gauge in left forearm, using aseptic technique. wrist, using jp3 aseptic technique. Blood collected. 22:02 No provider procedures requiring assistance completed. mg2 22:05 Patient has correct armband on for positive identification. Pulse ox on. NIBP on. mg2 22:46 Lights dimmed. Warm blanket given. Pillow given. Linen changed. jp3 23:32 IV discontinued, intact, bleeding controlled, No redness/swelling at site. Pressure mg2 dressing applied. Administered Medications: 20:15 Drug: Rocephin 1 grams Route: IV; Rate: calculated rate; Site: left forearm; mg2 20:30 Follow up: Response: No adverse reaction; IV Status: Completed infusion mg2 20:16 Drug: NS 0.9% 500 ml Route: IV; Rate: bolus; Site: left forearm; mg2 20:45 Follow up: Response: No adverse reaction; IV Status: Completed infusion mg2 20:40 Drug: Insulin Regular Human 10 units {Co-Signature: ed1 (Lena Mullen LVN).} Route: mg2 Sub-Q; Site: left upper arm; 21:45 Follow up: Response: No adverse reaction; Blood sugar is unchanged mg2 20:54 Drug: Kayexalate 45 grams Route: PO; mg2 21:00 Follow up: Response: No adverse reaction mg2 21:51 Drug: NS 0.9% 500 ml Route: IV; Rate: bolus; Site: left forearm; mg2 22:15 Follow up: Response: No adverse reaction; IV Status: Completed infusion mg2 21:55 Drug: Insulin Regular Human 10 units {Co-Signature: rr5 (Dylan Webster RN).} Route: mg2 IVP; Site: left forearm; 22:55 Follow up: Response: No adverse reaction; Blood sugar is lowered mg2 22:46 Drug: Zofran 4 mg Route: IVP; Site: left forearm; mg2 23:15 Follow up: Response: No adverse reaction; Marked relief of symptoms mg2 Point of Care Testing: Blood Glucose: 18:31 Blood Glucose: High (>450 mg/dL); mg2 21:45 Blood Glucose: 486 mg/dL; mg2 22:45 Blood Glucose: 201 mg/dL; jp3 Ranges: Outcome: 23:00 Discharge ordered by MD. pm1 23:32 Discharged to home via wheelchair, with family. mg2 23:32 Condition: stable 23:32 Discharge instructions given to patient, family, Instructed on discharge instructions, follow up and referral plans. medication usage, Demonstrated understanding of instructions, follow-up care, medications, Prescriptions given X 1. 23:33 Patient left the ED. mg2 Signatures: Dispatcher [employer] EDMS Buck Parekh NP TRAVEL SERVICE CONSULTANT pm1 Cleopatra Narayanan 2 Everett Rm RN RN mg2 Quintin Bear jp3 Lena Mullen LVN ed1 Dylan Webster RN [email or web address] Corrections: (The following items were deleted from the chart) 18: 18:19 Presenting complaint: EMS states: patient has been having headache since lunch mg2 time. denies n/v, chest pain. mg2 : 18:21 BP 161 / 62; Resp 18bpm; Temp 98.9F Oral; 58.97 kg; Height 5 ft. 0 in.; BMI: mg2 25.3; Pain 8/10; mg2 22:09 21:52 Pulse 65bpm; Resp 18bpm; Pulse Ox 100% 2 lpm Nasal Cannula; Pain 0/10; mg2 mg2
--- NOTE | 2018-01-31 23:00 | EDPHYS ---
Physician Documentation [facility] Name: Sarah Garcia Age: 77 yrs Sex: Female : 1940 Arrival Date: 01/31/2018 Time: 18:18 Bed 27 Private MD: ED Physician Daniel Rosenberg HPI: 01/31 19:35 This 77 yrs old Female presents to ER via EMS with complaints of Headache and pm1 hyperglycemia. 19:35 The patient complains of pain to the forehead. The patient describes the headache as pm1 aching. Onset: The symptoms/episode began/occurred at 12:00. Associated signs and symptoms: Pertinent positives: Hyperglycemia, Pertinent negatives: dizziness, fever, nausea, neck stiffness, paresthesias, Photophobia rash, vomiting. Severity of symptoms: in the emergency department the pain is unchanged. Headache History: The patient has had previous headaches and this one is similar to previous episodes. The patient has not recently seen a physician. Patient presenting to the ER due to elevated blood sugar. Reading "HI" at home. Patient reports that she also has had a headache today since noon. Historical: - Allergies: 18:25 QUINOLONES; mg2 - Home Meds: 22:05 alprazolam 0.25 mg Oral tab PRN [Active]; Altace 2.5 mg Oral cap once daily [Active]; mg2 Ambien Oral [Active]; anastrozole 1 mg Oral tab 1 tab once daily [Active]; aspirin 81 mg Oral chew 1 tab once daily [Active]; atorvastatin 40 mg Oral tab 1 tab once daily [Active]; chlorthalidone 25 mg Oral tab 1 tab once daily [Active]; citalopram 20 mg tab 1 tab once daily [Active]; ferrous sulfate 325 mg (65 mg iron) Oral tab [Active]; meclizine 25 mg Oral tab [Active]; metoprolol succinate 100 mg Oral Tb24 0.5 tab once daily [Active]; pantoprazole 40 mg Oral TbEC 1 tab once daily [Active]; sitagliptin 30mg Oral 1 tab once daily [Active]; Tresiba FlexTouch U-200 200 unit/mL (3 mL) subcutaneous inpn 58 unit nightly [Active]; Vitamin D3 Oral [Active]; - PMHx: 18:25 Atrial Fib; Cancer, Breast; Diabetes - IDDM; GERD; High Cholesterol; Hypertension; mg2 Myocardial infarction; stage 4 kidney disease; - PSHx: 18:25 Heart stents; mg2 22:05 abdominal surgery; mg2 - Immunization history:: Flu vaccine is not up to date. - Social history:: Smoking status: Patient/guardian denies using tobacco, Patient/guardian denies using alcohol, street drugs, IV drugs. - Ebola Screening: : No symptoms or risks identified at this time. ROS: 19:35 Constitutional: Negative for fever, chills, and weight loss, Eyes: Negative for injury, pm1 pain, redness, and discharge, ENT: Negative for injury, pain, and discharge, Neck: Negative for injury, pain, and swelling, Cardiovascular: Negative for chest pain, palpitations, and edema, Respiratory: Negative for shortness of breath, cough, wheezing, and pleuritic chest pain, Abdomen/GI: Negative for abdominal pain, nausea, vomiting, diarrhea, and constipation, Back: Negative for injury and pain, : Negative for injury, bleeding, discharge, and swelling, MS/Extremity: Negative for injury and deformity, Skin: Negative for injury, rash, and discoloration. 19:35 Neuro: Positive for headache, Negative for dizziness, numbness, tingling, weakness. Exam: 19:35 Constitutional: This is a well developed, well nourished patient who is awake, alert, pm1 and in no acute distress. Head/Face: Normocephalic, atraumatic. Eyes: Pupils equal round and reactive to light, extra-ocular motions intact. Lids and lashes normal. Conjunctiva and sclera are non-icteric and not injected. Cornea within normal limits. Periorbital areas with no swelling, redness, or edema. ENT: Nares patent. No nasal discharge, no septal abnormalities noted. Tympanic membranes are normal and external auditory canals are clear. Oropharynx with no redness, swelling, or masses, exudates, or evidence of obstruction, uvula midline. Mucous membranes moist. Neck: Trachea midline, no thyromegaly or masses palpated, and no cervical lymphadenopathy. Supple, full range of motion without nuchal rigidity, or vertebral point tenderness. No Meningismus. Chest/axilla: Normal chest wall appearance and motion. Nontender with no deformity. No lesions are appreciated. Cardiovascular: Regular rate and rhythm with a normal S1 and S2. No gallops, murmurs, or rubs. Normal PMI, no JVD. No pulse deficits. Respiratory: Lungs have equal breath sounds bilaterally, clear to auscultation and percussion. No rales, rhonchi or wheezes noted. No increased work of breathing, no retractions or nasal flaring. Abdomen/GI: Soft, non-tender, with normal bowel sounds. No distension or tympany. No guarding or rebound. No evidence of tenderness throughout. Back: No spinal tenderness. No costovertebral tenderness. Full range of motion. Skin: Warm, dry with normal turgor. Normal color with no rashes, no lesions, and no evidence of cellulitis. MS/ Extremity: Pulses equal, no cyanosis. Neurovascular intact. Full, normal range of motion. 19:35 Neuro: Orientation: is normal, Motor: is normal, moves all fours. Vital Signs: 18:21 BP 161 / 62; Pulse 76; Resp 18; Temp 98.9(O); Pulse Ox 100% on 2 lpm NC; Weight 58.97 mg2 kg; Height 5 ft. 0 in. (152.40 cm); Pain 8/10; 19:26 BP 174 / 72; Pulse 78; Resp 18; Pulse Ox 100% on R/A; mg2 19:47 BP 162 / 62; Pulse 73; Resp 18; Pulse Ox 98% on 2 lpm NC; mg2 20:56 BP 178 / 58; Pulse 71; Resp 18; Pulse Ox 100% on 2 lpm NC; Pain 0/10; mg2 21:52 BP 122 / 46; Pulse 65; Resp 18; Pulse Ox 100% on 2 lpm NC; Pain 0/10; mg2 23:15 BP 125 / 80; Pulse 70; Resp 18; Pulse Ox 100% on R/A; Pain 0/10; mg2 18:21 Body Mass Index 25.39 (58.97 kg, 152.40 cm) mg2 MDM: 19:01 Patient medically screened. pm1 22:59 Data reviewed: vital signs. Data interpreted: Pulse oximetry: on room air is 100 %. pm1 Interpretation: normal. Counseling: I had a detailed discussion with the patient and/or guardian regarding: the historical points, exam findings, and any diagnostic results supporting the discharge/admit diagnosis, lab results, the need for outpatient follow up, to return to the emergency department if symptoms worsen or persist or if there are any questions or concerns that arise at home. 01/31 18:50 Order name: Glucose mg2 01/31 18:50 Order name: Glucose Level; Complete Time: 19:51 EDMS 01/31 19:04 Order name: PT-INR; Complete Time: 19:51 pm1 01/31 19:04 Order name: Basic Metabolic Panel; Complete Time: 20:09 pm1 01/31 19:04 Order name: CBC with Diff; Complete Time: 19:51 pm1 01/31 19:04 Order name: Hepatic Function; Complete Time: 20:09 pm1 01/31 19:04 Order name: CT Head Brain wo Cont; Complete Time: 19:51 pm1 01/31 19:05 Order name: Urine Microscopic Only; Complete Time: 19:51 pm1 01/31 19:33 Order name: Urine Dipstick--Ancillary (enter results); Complete Time: 20:51 ar5 01/31 19:35 Order name: Urine Culture EDPA 01/31 19:04 Order name: IV Saline Lock; Complete Time: 19:14 pm1 01/31 19:04 Order name: Labs collected and sent; Complete Time: 19:14 pm1 01/31 19:05 Order name: Urine Dipstick-Ancillary (obtain specimen); Complete Time: 19:14 pm1 Administered Medications: 20:15 Drug: Rocephin 1 grams Route: IV; Rate: calculated rate; Site: left forearm; mg2 20:30 Follow up: Response: No adverse reaction; IV Status: Completed infusion mg2 20:16 Drug: NS 0.9% 500 ml Route: IV; Rate: bolus; Site: left forearm; mg2 20:45 Follow up: Response: No adverse reaction; IV Status: Completed infusion mg2 20:40 Drug: Insulin Regular Human 10 units {Co-Signature: ed1 (Lena Mullen LVN).} Route: mg2 Sub-Q; Site: left upper arm; 21:45 Follow up: Response: No adverse reaction; Blood sugar is unchanged mg2 20:54 Drug: Kayexalate 45 grams Route: PO; mg2 21:00 Follow up: Response: No adverse reaction mg2 21:51 Drug: NS 0.9% 500 ml Route: IV; Rate: bolus; Site: left forearm; mg2 22:15 Follow up: Response: No adverse reaction; IV Status: Completed infusion mg2 21:55 Drug: Insulin Regular Human 10 units {Co-Signature: rr5 (Dylan Webster RN).} Route: mg2 IVP; Site: left forearm; 22:55 Follow up: Response: No adverse reaction; Blood sugar is lowered mg2 22:46 Drug: Zofran 4 mg Route: IVP; Site: left forearm; mg2 23:15 Follow up: Response: No adverse reaction; Marked relief of symptoms mg2 Point of Care Testing: Blood Glucose: 18:31 Blood Glucose: High (>450 mg/dL); mg2 21:45 Blood Glucose: 486 mg/dL; mg2 22:45 Blood Glucose: 201 mg/dL; jp3 Ranges: Critical Glucose Levels:Adult <50 mg/dl or >400 mg/dl <40 mg/dl or >180 mg/dl Disposition: 01/31/18 23:00 Discharged to Home. Impression: Hyperglycemia, unspecified, Urinary tract infection, site not specified, Headache. - Condition is Stable. - Discharge Instructions: General Headache Without Cause, Hyperglycemia, Urinary Tract Infection, Adult, Blood Glucose Monitoring, Adult. - Prescriptions for Bactrim DS 800- 160 mg Oral Tablet - take 1 tablet by ORAL route every 12 hours for 10 days; 20 tablet. - Medication Reconciliation Form, Thank You Letter, Antibiotic Education form. - Follow up: Emergency Department; When: As needed; Reason: Worsening of condition. Follow up: Private Physician; When: 2 - 3 days; Reason: Recheck today's complaints, Continuance of care, Re-evaluation by your physician. - Problem is new. - Symptoms have improved. Addendum: 02/02/2018 17:25 Co-signature as Attending Physician, Daniel Rosenberg MD. m a2 Signatures: Dispatcher [employer] EDMS Buck Parekh, ATTENDANCE CLERK ATTENDANCE CLERK pm1 Daniel Rosenberg MD MD ma2 Everett Rm RN RN mg2 Lena Mullen [facility] ed1 Dylan Webster RN [email or web address] Corrections: (The following items were deleted from the chart) 01/31 23:33 23:00 01/31/2018 23:00 Discharged to Home. Impression: Hyperglycemia, unspecified; mg2 Urinary tract infection, site not specified; Headache. Condition is Stable. Forms are Medication Reconciliation Form, Thank You Letter, Antibiotic Education, Prescription Opioid Use. Follow up: Emergency Department; When: As needed; Reason: Worsening of condition. Follow up: Private Physician; When: 2 - 3 days; Reason: Recheck today's complaints, Continuance of care, Re-evaluation by your physician. Problem is new. Symptoms have improved. pm1
[2018-02-01 01:15] VITALS: TEMP 98.9
[2018-02-01 01:18] VITALS: O2SAT 100
[2018-02-01 01:19] VITALS: BP 122/46
== END 2018-01-31 23:33 | disposition home or self-care (01) ==
LOC: ER 18:05
DX: E11.65 Type 2 diabetes mellitus with hyperglycemia (principal); N39.0 Urinary tract infection, site not specified; R51 Headache; E78.00 Pure hypercholesterolemia, unspecified; E11.22 Type 2 diabetes mellitus with diabetic chronic kidney disease; I12.9 Hypertensive chronic kidney disease with stage 1 through stage 4 chronic kidney disease, or unspecified chronic kidney disease; N18.4 Chronic kidney disease, stage 4 (severe); I48.91 Unspecified atrial fibrillation; I25.2 Old myocardial infarction; K21.9 Gastro-esophageal reflux disease without esophagitis; Z79.4 Long term (current) use of insulin; Z79.82 Long term (current) use of aspirin; Z79.899 Other long term (current) drug therapy; Z95.5 Presence of coronary angioplasty implant and graft
CPT/HCPCS: 36415; 70450; 80048; 80076; 82947; 82962 ×3; 85025; 85610; 87086; 87088; 96361; 96372; 96374; 96375; 99285; J0696; J2405; 81003; 81015

== ENCOUNTER 2018-02-03 17:44 | Emergency (ER) | payer OTHER ==
--- OUTSIDE RECORDS SUMMARY | 2018-02-03 17:47 | XMS REPORT ---
:1940 Author Organization eClinicalWorks Care Team Providers Name Role Phone Laura, [facility] Provider Role Unavailable Allergies, Adverse Reactions, [...] Date Date Citalopram [facility] 01543793628 20 MG Orally Active 1 tablet Hydrobromide Once a day Coumadin ND 03474314070 2 MG Orally Active 1 tablet Once a day Lipitor ND 19880910059 40 MG Active 1 TAB(S) ONCE A DAY ORALLY Meclizine HCl ND 71676812248 25 MG Orally Active 1 tablet Three times a day Ferrous Sulfate ND 38555774323 325 (65 Fe) MG May Active 1 tablet Orally Once a 2017 day Tresiba FlexTouch ND 63319885958 200 UNIT/ML Active not Subcutaneous defined Chlorthalidone ND 70033279925 25 MG Orally Active 1 tablet Once a day in the morning with food FreeStyle Lite [facility] 19501865594 0 Active CHECK Test BLOOD SUGAR TWICE DAILY Flonase Allergy [facility] 97851745537 50 MCG/ACT Active 1 spray in Relief Nasally Once a each day nostril Meclizine HCl [facility] 47661481832 25 Active CHEW AND SWALLOW 1 TABLET THREE TIMES DAILY Anastrozole [facility] 64492003890 1 MG Orally Active 1 tablet Once a day Protonix [facility] 26783678521 40 MG Active 1 TAB(S) ONCE A DAY ORALLY Losartan [facility] 33290832084 100 MG Orally Active 1 tablet Potassium Once a day Topamax [facility] 73752816695 50 MG Orally Active 1 tablet Once a day Protonix [facility] 49264940827 40 MG Orally Active 1 tablet Once a day Tresiba FlexTouch [facility] 88415299313 200 UNIT/ML Active 40 UNITS DAILY Results No Known Results Summary Purpose eClinicalWorks Submission
--- OUTSIDE RECORDS SUMMARY | 2018-02-03 17:47 | XMS REPORT ---
:1940 Author Organization eClinicalWorks Care Team Providers Name Role Phone Valentín [facility] Provider Role Unavailable Allergies [...] Date [facility] 28597607350 200 UNIT/ML Active 70 UNITS FlexTouch Subcutaneous DAILY Increase 2 untis after 3 day if BS are high Results No Known Results Summary Purpose eClinicalWorks Submission
--- OUTSIDE RECORDS SUMMARY | 2018-02-03 17:47 | XMS REPORT ---
[...] Status Dosage System Date Date FreeStyle Lite [facility] 54599416002 0 Active CHECK Test BLOOD SUGAR TWICE DAILY Lipitor [facility] 00240334853 40 MG Active 1 TAB(S) ONCE A DAY ORALLY Losartan [facility] 40903684834 100 MG Orally Active 1 tablet Potassium Once a day Meclizine HCl [facility] 20193666137 25 Active CHEW AND SWALLOW 1 TABLET THREE TIMES DAILY Flonase Allergy [facility] 24597157066 50 MCG/ACT Active 1 spray in Relief Nasally Once a each day nostril Ferrous Sulfate [facility] 21658377879 325 (65 Fe) MG Active 1 tablet Orally Once a day Tresiba FlexTouch [facility] 61839607290 200 UNIT/ML Active 70 UNITS Subcutaneous DAILY Increase 2 untis after 3 day if BS are high Citalopram [facility] 42848874093 20 MG Orally Active 1 tablet Hydrobromide Once a day Chlorthalidone [facility] 34315253781 25 MG Orally Active 1 tablet Once a day in the morning with food Tresiba FlexTouch [facility] 75307337436 200 UNIT/ML Active not Subcutaneous defined Anastrozole [facility] 91994049384 1 MG Orally Active 1 tablet Once a day Topamax [facility] 35509049568 50 MG Orally Active 1 tablet Once a day Protonix [facility] 03459959754 40 MG Active 1 TAB(S) ONCE A DAY ORALLY Lipitor [facility] 95766910691 40 MG Orally Active 1 tablet Once a day Coumadin [facility] 78103755183 2 MG Orally Active 1 tablet Once a day BD Pen Needle [facility] 63604253049 0 Active USE DAILY Short U/F Citalopram [facility] 65649926404 20 Active TAKE 1 Hydrobromide TABLET BY MOUTH EVERY DAY Protonix [facility] 52363941980 40 MG Orally Active 1 tablet Once a day Results No Known Results Summary Purpose eClinicalWorks Submission
--- OUTSIDE RECORDS SUMMARY | 2018-02-03 17:48 | XMS REPORT ---
:1940 Author Organization eClinicalWorks Care Team Providers Name Role Phone Valetnín [facility] Provider Role Unavailable Allergies No Known Allergies [...] Status Dosage System Date Date Ferrous Sulfate [facility] 65206236340 325 (65 Fe) MG Active 1 tablet Orally Once a day FreeStyle Lite [facility] 42865519498 0 Active CHECK BLOOD Test SUGAR TWICE DAILY Citalopram [facility] 59457509711 20 Active TAKE 1 Hydrobromide TABLET BY MOUTH EVERY DAY Meclizine HCl [facility] 99834468834 25 Active CHEW AND SWALLOW 1 TABLET THREE TIMES DAILY Lipitor ND 89792944956 40 MG Orally Active 1 tablet Once a day Flonase Allergy ND 24121207183 50 MCG/ACT Active 1 spray in Relief Nasally Once a each day nostril Pantoprazole [facility] 75128668127 40 Active TAKE 1 Sodium TABLET BY MOUTH EVERY DAY FreeStyle [facility] 25130797527 - Oct 11, Active as directed Lancets 2018 HydrALAZINE HCl [facility] 71660292392 25 MG Orally Active 1 tablet Two times a day with food Lyrica [facility] 38194546280 50 MG Orally Oct 30, Active 1 capsule Twice a day 2017 BD Pen Needle [facility] 85341028905 0 Active USE DAILY Short U/F Anastrozole [facility] 61716732703 1 MG Orally Active 1 tablet Once a day Topamax [facility] 87724143858 50 MG Orally Active 1 tablet Once a day Coumadin [facility] 84236086498 2 MG Orally Active 1 tablet Once a day Tresiba [facility] 28912520505 200 UNIT/ML Active INJECT 70 FlexTouch UNITS UNDER THE SKIN EVERY DAY INCREASE 2 UNITS AFTER 3 DAYS IF BLOOD SUGAR IS HIGH Results No Known Results Summary Purpose eClinicalWorks Submission
--- OUTSIDE RECORDS SUMMARY | 2018-02-03 17:48 | XMS REPORT ---
:1940 Author Organization eClinicalWorks Care Team Providers Name Role Phone Valentín [facility] Provider Role Unavailable Allergies No Known [...] Start End Date Status Dosage System Date [facility] 62612075447 - Oct 11, Active as directed Lancets 2018 Results No Known Results Summary Purpose eClinicalPPLCONNECT Submission
--- OUTSIDE RECORDS SUMMARY | 2018-02-03 17:48 | XMS REPORT ---
[...] End Status Dosage System Date Date Anastrozole [facility] 11239866200 1 MG Orally Active 1 tablet Once a day Lipitor [facility] 42435621525 40 MG Orally Active 1 tablet Once a day Protonix [facility] 97926728424 40 MG Orally Active 1 tablet Once a day Topamax [facility] 77047477176 50 MG Orally Active 1 tablet Once a day Ferrous Sulfate [facility] 25607634473 325 (65 Fe) MG Active 1 tablet Orally Once a day Lipitor [facility] 27468119111 40 Active 1 TAB(S) ONCE A DAY ORALLY Tresiba FlexTouch [facility] 98467447997 200 UNIT/ML Active 70 UNITS Subcutaneous DAILY Increase 2 untis after 3 day if BS are high HydrALAZINE HCl [facility] 75667722118 25 MG Orally Active 1 tablet Two times a day with food Tresiba FlexTouch [facility] 76105010831 200 UNIT/ML Active not Subcutaneous defined Tresiba FlexTouch [facility] 76065982641 200 UNIT/ML Active INJECT 70 UNITS UNDER THE SKIN EVERY DAY INCREASE 2 UNITS AFTER 3 DAYS IF BLOOD SUGAR IS HIGH FreeStyle Lite [facility] 73797429627 0 Active CHECK Test BLOOD SUGAR TWICE DAILY Losartan [facility] 35760647322 100 MG Orally Inactive 1 tablet Potassium Once a day Pantoprazole [facility] 52372033443 40 Active TAKE 1 Sodium TABLET BY MOUTH EVERY DAY Citalopram [facility] 38096582964 20 Active TAKE 1 Hydrobromide TABLET BY MOUTH EVERY DAY Meclizine HCl [facility] 91347077285 25 Active CHEW AND SWALLOW 1 TABLET THREE TIMES DAILY Citalopram [facility] 77290962996 20 MG Orally Active 1 tablet Hydrobromide Once a day Coumadin [facility] 80922611719 2 MG Orally Active 1 tablet Once a day Lipitor [facility] 64681794626 40 MG Active 1 TAB(S) ONCE A DAY ORALLY Chlorthalidone [facility] 67615685033 25 MG Orally Inactive 1 tablet Once a day in the morning with food Flonase Allergy [facility] 90294999506 50 MCG/ACT Active 1 spray in Relief Nasally Once a each day nostril Protonix [facility] 17177049713 40 MG Active 1 TAB(S) ONCE A DAY ORALLY BD Pen Needle [facility] 48888066170 0 Active USE DAILY Short U/F Results No Known Results Summary Purpose eClinicalWorks Submission
[2018-02-03] MEDS ORDERED: INSULIN -REGULAR HUMAN 50 UNIT/0.5 ML ML ONE ×2 (18:34→20:18)
[2018-02-03 18:36] LABS: Absolute Lymphocytes (CBC) 1.3 K/uL (0.7-4.9); Absolute Monocytes 0.4 K/uL (0.1-1.3); Absolute Neutrophil 4.3 K/uL (1.8-8.0); Basophils % 0.5 % (0-1.3); Eosinophils % 6.5 % (0-4.4); Hematocrit 28.1 % (36.0-45.0); MPV 9.9 fL (7.6-11.3); Monocytes % 6.6 % (3.3-12.3); RBC Red Blood Cell Count 2.91 M/uL (3.86-4.86)
[2018-02-03 19:25] LABS: ALT/SGPT 14 U/L (12-78); AST/SGOT 11 U/L (15-37); Alkaline Phosphatase 171 U/L (45-117); BUN Blood Urea Nitrogen 60 mg/dL (7-18); Bicarbonate 28 mmol/L (21-32); Bilirubin Direct 0.1 mg/dL (0-0.2); Bilirubin Total 0.3 mg/dL (0.2-1.0); Potassium 4.3 mmol/L (3.5-5.1); Protein, Total 6.8 g/dL (6.4-8.2); Sodium Level 133 mmol/L (136-145)
[2018-02-03 19:58] LABS: Glucose Level 519 mg/dL (74-106)
[2018-02-03] MEDS ORDERED: FENTANYL CITR 100 MCG/2 ML ONE (20:09)
[2018-02-03 20:33] LABS: Urine Blood NEGATIVE (NEG); Urine Glucose 2+ (NEG); Urine Protein TRACE (NEG); Urine pH 5.5 (5.0-7.0)
--- NOTE | 2018-02-03 21:35 | ER ---
Nurse's Notes [facility] Name: Sarah Garcia Age: 77 yrs Sex: Female : 1940 Arrival Date: 02/03/2018 Time: 17:56 Bed 30 Private MD: Diagnosis: Hyperglycemia, unspecified Presentation: 02/03 17:57 Presenting complaint: EMS states: Patient was seen by her home health nurse this kr2 morning and her blood sugar was over 500, was told to go to the ER but refused. A family member went over, her blood sugar was still elevated, they called us and she agreed to come to the hospital. At her home blood glucose was in the 500's and just prior to arrival at hospital glucose 505. She did receive NS to left AC. Transition of care: patient was not received from another setting of care. Onset of symptoms was February 03, 2018. Risk Assessment: Do you want to hurt yourself or someone else? Patient reports no desire to harm self or others. Initial Sepsis Screen: Does the patient meet any 2 criteria? No. Patient's initial sepsis screen is negative. Does the patient have a suspected source of infection? No. Patient's initial sepsis screen is negative. Care prior to arrival: Medication(s) given: Normal saline infusion, IV initiated. 22 GA, in the left antecubital area, Glucose check: 505 Oxygen administered. via nasal cannula. 17:57 Method Of Arrival: EMS: [facility] kr2 17:57 Acuity: CHRISS 2 kr2 Triage Assessment: 18:05 General: Appears in no apparent distress. comfortable, obese, well groomed, Behavior is kr2 calm, cooperative. Pain: Complains of pain in forehead Pain does not radiate. Pain currently is 8 out of 10 on a pain scale. Quality of pain is described as aching, Is continuous, Alleviated by nothing. 18:05 EENT: Oral mucosa is dry. Neuro: Level of Consciousness is awake, alert, obeys kr2 commands, Oriented to person, place, situation, Sales Service Manager are equal bilaterally. Cardiovascular: Patient's skin is warm and dry. Rhythm is regular. Respiratory: Airway is patent Respiratory effort is even, unlabored, Respiratory pattern is regular, symmetrical. GI: Abdomen is flat, non-distended, Bowel sounds present X 4 quads. Patient currently denies nausea, vomiting. : Denies burning with urination. Derm: Skin is intact, is fragile, Skin is pink, warm \T\ dry. Musculoskeletal: Circulation, motion, and sensation intact. Historical: - Allergies: 18:04 QUINOLONES; kr2 - PMHx: 18:04 Atrial Fib; Cancer, Breast; Diabetes - IDDM; GERD; High Cholesterol; Hypertension; kr2 Myocardial infarction; stage 4 kidney disease; - PSHx: 18:04 lymph node removal, right upper extremity; kr2 - Immunization history:: Adult Immunizations unknown. - Social history:: Smoking status: Patient/guardian denies using tobacco. - Ebola Screening: : No symptoms or risks identified at this time. Screenin:04 Abuse screen: Denies threats or abuse. Denies injuries from another. Nutritional kr2 screening: No deficits noted. Tuberculosis screening: No symptoms or risk factors identified. Fall Risk None identified. Assessment: 18:10 Reassessment: See triage assessment. kr2 18:31 Reassessment: Patient's son at bedside and says she was here for elevated kr2 blood glucose and started on antibiotics for UTI. 19:55 Reassessment: Notified provider of blood glucose 306 and complaining of leg pain 07/15. kr2 New orders received see APR. 20:33 Reassessment: Patient appears in no apparent distress at this time. Patient and/or kr2 family updated on plan of care and expected duration. Pain level reassessed. Patient is alert, oriented x 3, equal unlabored respirations, skin warm/dry/pink. Patient denies pain at this time. 21:30 Reassessment: Patient appears in no apparent distress at this time. Patient and/or kr2 family updated on plan of care and expected duration. Pain level reassessed. Patient is alert, oriented x 3, equal unlabored respirations, skin warm/dry/pink. Patient denies pain at this time. 22:00 Reassessment: Patient appears in no apparent distress at this time. Patient and/or kr2 family updated on plan of care and expected duration. Pain level reassessed. Patient is alert, oriented x 3, equal unlabored respirations, skin warm/dry/pink. Patient denies pain at this time. Patient states feeling better. Vital Signs: 18:00 BP 120 / 75; Pulse 77; Resp 16; Temp 98.2; Pulse Ox 88% on R/A; Weight 83.91 kg; Height kr2 5 ft. 2 in. (157.48 cm); Pain 8/10; 18:33 BP 121 / 75; Pulse 72; Resp 16; Pulse Ox 100% on 2 lpm NC; kr2 20:37 BP 115 / 65; Pulse 73; Resp 17; Pulse Ox 100% on 2 lpm NC; kr2 21:30 BP 129 / 53; Pulse 73; Resp 17; Pulse Ox 98% ; kr2 18:00 Body Mass Index 33.84 (83.91 kg, 157.48 cm) kr2 18:00 Placed on oxygen \T\ 2LPM via NC, sats up to 99%, patient wears oxygen at home kr2 ED Course: 17:56 Patient arrived in ED. kr2 18:00 Triage completed. kr2 18:06 Arm band placed on right wrist. kr2 18:06 Patient has correct armband on for positive identification. Placed in gown. Bed in low kr2 position. Call light in reach. Side rails up X2. Adult w/ patient. conveyor monitor on. Pulse ox on. NIBP on. Door closed. Warm blanket given. Head of bed elevated. 18:09 Dianne Carr, MARANDA is Primary Nurse. kr2 18:10 Notified ED physician of other Fingerstick glucose 483. kr2 18:11 Rustam Jc PA is PHCP. jr8 18:11 John Alas MD is Attending Physician. jr8 18:20 Initial lab(s) drawn, by me, sent to lab. Maintain EMS IV. Dressing intact. Good blood kr2 return noted. Site clean \T\ dry. Gauge \T\ site: 20g left AC. 22:00 No provider procedures requiring assistance completed. IV discontinued, intact, kr2 bleeding controlled, No redness/swelling at site. Pressure dressing applied. Administered Medications: 18:31 Drug: NS 0.9% 1000 ml Route: IV; Rate: 1000 ml; Site: left antecubital; kr2 19:30 Follow up: Response: No adverse reaction; IV Status: Completed infusion kr2 18:31 Drug: Insulin Regular Human 10 units {Co-Signature: ed1 (Lena Mullen LVN).} Route: IVP; kr2 Site: left antecubital; 19:51 Follow up: Response: No adverse reaction; Blood sugar is lowered kr2 20:20 Drug: Insulin Regular Human 10 units {Co-Signature: tamika (Malik Schaefer RN).} Route: Sub-Q; kr2 Site: left upper arm; 21:29 Follow up: Response: No adverse reaction; Blood sugar is lowered kr2 20:21 Drug: Insulin Regular Human 5 units {Co-Signature: tamika (Malik Schaefer RN).} Route: IVP; kr2 Site: left antecubital; 21:29 Follow up: Response: No adverse reaction; Blood sugar is lowered kr2 20:36 Drug: fentaNYL (PF) 25 mcg Route: IVP; Site: left antecubital; kr2 21:00 Follow up: Response: No adverse reaction; Pain is decreased kr2 Point of Care Testing: Blood Glucose: 18:10 Blood Glucose: 483 mg/dL; kr2 19:51 Blood Glucose: 306 mg/dL; kr2 21:29 Blood Glucose: 286 mg/dL; kr2 Ranges: Outcome: 21:34 Discharge ordered by . sabino 22:00 Discharged to home via wheelchair, with family. kr2 22:00 Condition: improved 22:00 Discharge instructions given to patient, family, Instructed on discharge instructions, follow up and referral plans. Demonstrated understanding of instructions, follow-up care. 22:09 Patient left the ED. kr2 Signatures: Rustam Jc PA PA jr8 Dianne Carr RN RN kr2 Lena Mullen CORE DIPPER ed1 Malik [email or web address] Corrections: (The following items were deleted from the chart) 02/04 00:44 02/03 22:30 Reassessment: Patient appears in no apparent distress at this time. Patient kr2 and/or family updated on plan of care and expected duration. Pain level reassessed. Patient is alert, oriented x 3, equal unlabored respirations, skin warm/dry/pink. Patient denies pain at this time. Patient states feeling better. kr2
--- NOTE | 2018-02-03 21:35 | EDPHYS ---
Physician Documentation [facility] Name: Sarah Garcia Age: 77 yrs Sex: Female : 1940 Arrival Date: 02/03/2018 Time: 17:56 Bed 30 Private MD: ED Physician John Alas HPI: 02/03 20:33 This 77 yrs old Female presents to ER via EMS with complaints of High Blood jr8 Sugar. 20:33 The patient or guardian reports hyperglycemia. Onset: The symptoms/episode jr8 began/occurred acutely, today. Associated signs and symptoms: Pertinent positives: None. Current symptoms: In the emergency department the patient's symptoms are unchanged from the initial presentation. The patient has experienced a previous episode. The patient has been recently seen by a physician:. 20:36 Patient recently seen for UTI and Hyperglycemia. While being evaluated by her Home jr8 health nurse noted that patient had glucose over 500 again today. Patient denies any symptoms. Is currently on antibiotics for UTI. Brought to ED for further evaluation at that point . Historical: - Allergies: 18:04 QUINOLONES; kr2 - PMHx: 18:04 Atrial Fib; Cancer, Breast; Diabetes - IDDM; GERD; High Cholesterol; Hypertension; kr2 Myocardial infarction; stage 4 kidney disease; - PSHx: 18:04 lymph node removal, right upper extremity; kr2 - Immunization history:: Adult Immunizations unknown. - Social history:: Smoking status: Patient/guardian denies using tobacco. - Ebola Screening: : No symptoms or risks identified at this time. ROS: 20:36 Eyes: Negative for injury, pain, redness, and discharge, ENT: Negative for injury, jr8 pain, and discharge, Neck: Negative for injury, pain, and swelling, Cardiovascular: Negative for chest pain, palpitations, and edema, Respiratory: Negative for shortness of breath, cough, wheezing, and pleuritic chest pain, Abdomen/GI: Negative for abdominal pain, nausea, vomiting, diarrhea, and constipation, Back: Negative for injury and pain, MS/Extremity: Negative for injury and deformity, Skin: Negative for injury, rash, and discoloration, Neuro: Negative for headache, weakness, numbness, tingling, and seizure. Exam: 20:36 Eyes: Pupils equal round and reactive to light, extra-ocular motions intact. Lids and jr8 lashes normal. Conjunctiva and sclera are non-icteric and not injected. Cornea within normal limits. Periorbital areas with no swelling, redness, or edema. ENT: Nares patent. No nasal discharge, no septal abnormalities noted. Tympanic membranes are normal and external auditory canals are clear. Oropharynx with no redness, swelling, or masses, exudates, or evidence of obstruction, uvula midline. Mucous membranes moist. Neck: Trachea midline, no thyromegaly or masses palpated, and no cervical lymphadenopathy. Supple, full range of motion without nuchal rigidity, or vertebral point tenderness. No Meningismus. Cardiovascular: Regular rate and rhythm with a normal S1 and S2. No gallops, murmurs, or rubs. Normal PMI, no JVD. No pulse deficits. Respiratory: Lungs have equal breath sounds bilaterally, clear to auscultation and percussion. No rales, rhonchi or wheezes noted. No increased work of breathing, no retractions or nasal flaring. Abdomen/GI: Soft, non-tender, with normal bowel sounds. No distension or tympany. No guarding or rebound. No evidence of tenderness throughout. Back: No spinal tenderness. No costovertebral tenderness. Full range of motion. Skin: Warm, dry with normal turgor. Normal color with no rashes, no lesions, and no evidence of cellulitis. MS/ Extremity: Pulses equal, no cyanosis. Neurovascular intact. Full, normal range of motion. Neuro: Awake and alert, GCS 15, oriented to person, place, time, and situation. Cranial nerves II-XII grossly intact. Motor strength 5/5 in all extremities. Sensory grossly intact. Cerebellar exam normal. Normal gait. Vital Signs: 18:00 BP 120 / 75; Pulse 77; Resp 16; Temp 98.2; Pulse Ox 88% on R/A; Weight 83.91 kg; Height kr2 5 ft. 2 in. (157.48 cm); Pain 8/10; 18:33 BP 121 / 75; Pulse 72; Resp 16; Pulse Ox 100% on 2 lpm NC; kr2 20:37 BP 115 / 65; Pulse 73; Resp 17; Pulse Ox 100% on 2 lpm NC; kr2 21:30 BP 129 / 53; Pulse 73; Resp 17; Pulse Ox 98% ; kr2 18:00 Body Mass Index 33.84 (83.91 kg, 157.48 cm) kr2 18:00 Placed on oxygen \T\ 2LPM via NC, sats up to 99%, patient wears oxygen at home kr2 MDM: 18:11 Patient medically screened. jr8 21:33 Data reviewed: vital signs, nurses notes, lab test result(s). Data interpreted: Pulse jr8 oximetry: on room air is 98 %. Interpretation: normal. Counseling: I had a detailed discussion with the patient and/or guardian regarding: the historical points, exam findings, and any diagnostic results supporting the discharge/admit diagnosis, lab results, the need for outpatient follow up, a family practitioner, to return to the emergency department if symptoms worsen or persist or if there are any questions or concerns that arise at home. Response to treatment: the patient's symptoms have markedly improved after treatment, patient is well hydrated. 02/03 18:13 Order name: Basic Metabolic Panel; Complete Time: 20:00 jr8 02/03 18:13 Order name: CBC with Diff; Complete Time: 18:54 jr8 02/03 18:13 Order name: Creatinine for Radiology; Complete Time: 18:54 jr8 02/03 18:13 Order name: Hepatic Function; Complete Time: 20:00 jr8 02/03 18:13 Order name: Ketone, Serum; Complete Time: 20:00 jr8 02/03 20:10 Order name: Urine Dipstick--Ancillary (enter results); Complete Time: 20:36 ag4 02/03 21:30 Order name: Glucose, Ancillary Testing; Complete Time: 21:33 EDMS 02/03 21:30 Order name: Glucose, Ancillary Testing; Complete Time: 21:33 EDMS 02/03 21:30 Order name: Glucose, Ancillary Testing; Complete Time: 21:33 EDMS 02/03 18:13 Order name: IV Saline Lock; Complete Time: 18:15 jr8 02/03 18:13 Order name: Labs collected and sent; Complete Time: 18:31 jr8 02/03 18:13 Order name: Urine Dipstick-Ancillary (obtain specimen); Complete Time: 20:36 jr8 02/03 18:13 Order name: Glucose Level; Complete Time: 18:15 jr8 Administered Medications: 18:31 Drug: NS 0.9% 1000 ml Route: IV; Rate: 1000 ml; Site: left antecubital; kr2 19:30 Follow up: Response: No adverse reaction; IV Status: Completed infusion kr2 18:31 Drug: Insulin Regular Human 10 units {Co-Signature: ed1 (Lena Mullen LVN).} Route: IVP; kr2 Site: left antecubital; 19:51 Follow up: Response: No adverse reaction; Blood sugar is lowered kr2 20:20 Drug: Insulin Regular Human 10 units {Co-Signature: tamika (Malik Schaefer RN).} Route: Sub-Q; kr2 Site: left upper arm; 21:29 Follow up: Response: No adverse reaction; Blood sugar is lowered kr2 20:21 Drug: Insulin Regular Human 5 units {Co-Signature: tamika (Malik Schaefer RN).} Route: IVP; kr2 Site: left antecubital; 21:29 Follow up: Response: No adverse reaction; Blood sugar is lowered kr2 20:36 Drug: fentaNYL (PF) 25 mcg Route: IVP; Site: left antecubital; kr2 21:00 Follow up: Response: No adverse reaction; Pain is decreased kr2 Point of Care Testing: Blood Glucose: 18:10 Blood Glucose: 483 mg/dL; kr2 19:51 Blood Glucose: 306 mg/dL; kr2 21:29 Blood Glucose: 286 mg/dL; kr2 Ranges: Critical Glucose Levels:Adult <50 mg/dl or >400 mg/dl <40 mg/dl or >180 mg/dl Disposition: 02/04 09:56 Co-signature as Attending Physician, John Alas MD. rn Disposition: 02/03/18 21:34 Discharged to Home. Impression: Hyperglycemia, unspecified. - Condition is Stable. - Discharge Instructions: Hyperglycemia, Blood Glucose Monitoring, Adult. - Medication Reconciliation Form, Thank You Letter, Antibiotic Education, Prescription Opioid Use form. - Follow up: Private Physician; When: 1 - 2 days; Reason: Recheck today's complaints, Continuance of care, Re-evaluation by your physician. - Problem is new. - Symptoms have improved. Signatures: Dispatcher [employer] EDJohn Harper MD MD rn Roszak, Josh, CLARA ELIZABETH jr8 Dianne Carr RN RN kr2 Lena Mullen LVN ed1 Malik Attema RN la1 Corrections: (The following items were deleted from the chart) 02/03 22:09 21:34 02/03/2018 21:34 Discharged to Home. Impression: Hyperglycemia, unspecified. kr2 Condition is Stable. Forms are Medication Reconciliation Form, Thank You Letter, Antibiotic Education, Prescription Opioid Use. Follow up: Private Physician; When: 1 - 2 days; Reason: Recheck today's complaints, Continuance of care, Re-evaluation by your physician. Problem is new. Symptoms have improved. jr8
[2018-02-03 23:32] VITALS: TEMP 98.2
[2018-02-03 23:37] VITALS: BP 129/53; O2SAT 98
[2018-02-04] MEDS ORDERED: HYDROCOD 2.5mg-ACETAMIN 108mg/5mL Soln ONE (22:28)
== END 2018-02-03 22:09 | disposition home or self-care (01) ==
LOC: ER 17:44
DX: E11.65 Type 2 diabetes mellitus with hyperglycemia (principal); I12.9 Hypertensive chronic kidney disease with stage 1 through stage 4 chronic kidney disease, or unspecified chronic kidney disease; E11.22 Type 2 diabetes mellitus with diabetic chronic kidney disease; N18.4 Chronic kidney disease, stage 4 (severe); Z85.3 Personal history of malignant neoplasm of breast
CPT/HCPCS: 36415; 80048; 80076; 81003; 82010; 82962 ×3; 85025; 96361; 96372; 96374; 96375; 99284; J3010

== ENCOUNTER 2018-02-19 11:26 | Inpatient (IN) | payer OTHER ==
--- OUTSIDE RECORDS SUMMARY | 2018-02-19 11:29 | XMS REPORT ---
:1940 [facility] Address [address] [place] [address] Care Team Providers Name Role Phone Unavailable Unavailable Unavailable Problems This patient has no known problems. Allergies, Adverse Reactions, Alerts This patient has no known allergies or adverse reactions. Medications This patient has no known medications.
--- OUTSIDE RECORDS SUMMARY | 2018-02-19 11:29 | XMS REPORT ---
:1940 Author Organization [employer] Care Team Providers Name Role Phone Laura, [facility] Provider Role Unavailable Allergies, Adverse [...] End Status Dosage System Date Date Citalopram [facility] 84331878349 20 MG Orally Active 1 tablet Hydrobromide Once a day Coumadin ND 69933721472 2 MG Orally Active 1 tablet Once a day Lipitor ND 76709681796 40 MG Active 1 TAB(S) ONCE A DAY ORALLY Meclizine HCl ND 01831970438 25 MG Orally Active 1 tablet Three times a day Ferrous Sulfate ND 05747173086 325 (65 Fe) MG May Active 1 tablet Orally Once a 2017 day Tresiba FlexTouch ND 78533515006 200 UNIT/ML Active not Subcutaneous defined Chlorthalidone ND 93614533870 25 MG Orally Active 1 tablet Once a day in the morning with food FreeStyle Lite [facility] 86571225924 0 Active CHECK Test BLOOD SUGAR TWICE DAILY Flonase Allergy [facility] 68169448417 50 MCG/ACT Active 1 spray in Relief Nasally Once a each day nostril Meclizine HCl [facility] 15780080023 25 Active CHEW AND SWALLOW 1 TABLET THREE TIMES DAILY Anastrozole [facility] 59529987471 1 MG Orally Active 1 tablet Once a day Protonix [facility] 80277310173 40 MG Active 1 TAB(S) ONCE A DAY ORALLY Losartan [facility] 53323396185 100 MG Orally Active 1 tablet Potassium Once a day Topamax [facility] 11255538403 50 MG Orally Active 1 tablet Once a day Protonix [facility] 69529491520 40 MG Orally Active 1 tablet Once a day Tresiba FlexTouch [facility] 21697709349 200 UNIT/ML Active 40 UNITS DAILY Results No Known Results Summary Purpose eClinicalWorks Submission
--- OUTSIDE RECORDS SUMMARY | 2018-02-19 11:29 | XMS REPORT ---
[...] Status Dosage System Date Date FreeStyle Lite [facility] 91406204656 0 Active CHECK Test BLOOD SUGAR TWICE DAILY Lipitor [facility] 87486142636 40 MG Active 1 TAB(S) ONCE A DAY ORALLY Losartan [facility] 25541972685 100 MG Orally Active 1 tablet Potassium Once a day Meclizine HCl [facility] 66400831878 25 Active CHEW AND SWALLOW 1 TABLET THREE TIMES DAILY Flonase Allergy [facility] 71522239051 50 MCG/ACT Active 1 spray in Relief Nasally Once a each day nostril Ferrous Sulfate [facility] 25894084179 325 (65 Fe) MG Active 1 tablet Orally Once a day Tresiba FlexTouch [facility] 32488791870 200 UNIT/ML Active 70 UNITS Subcutaneous DAILY Increase 2 untis after 3 day if BS are high Citalopram [facility] 59915260186 20 MG Orally Active 1 tablet Hydrobromide Once a day Chlorthalidone [facility] 05009864680 25 MG Orally Active 1 tablet Once a day in the morning with food Tresiba FlexTouch [facility] 90527764568 200 UNIT/ML Active not Subcutaneous defined Anastrozole [facility] 02720177667 1 MG Orally Active 1 tablet Once a day Topamax [facility] 33427854217 50 MG Orally Active 1 tablet Once a day Protonix [facility] 95683775475 40 MG Active 1 TAB(S) ONCE A DAY ORALLY Lipitor [facility] 72926788659 40 MG Orally Active 1 tablet Once a day Coumadin [facility] 11403043797 2 MG Orally Active 1 tablet Once a day BD Pen Needle [facility] 59160837436 0 Active USE DAILY Short U/F Citalopram [facility] 40638657814 20 Active TAKE 1 Hydrobromide TABLET BY MOUTH EVERY DAY Protonix [facility] 54116860866 40 MG Orally Active 1 tablet Once a day Results No Known Results Summary Purpose eClinicalWorks Submission
--- OUTSIDE RECORDS SUMMARY | 2018-02-19 11:29 | XMS REPORT ---
:1940 Author Organization eClinicalWorks Care Team Providers Name Role Phone Valentín [facility] Provider Role Unavailable Allergies No [...] Start End Date Status Dosage System Date [facility] 42446840030 200 UNIT/ML Active 70 UNITS FlexTouch Subcutaneous DAILY Increase 2 untis after 3 day if BS are high Results No Known Results Summary Purpose eClinicalWorks Submission
--- OUTSIDE RECORDS SUMMARY | 2018-02-19 11:30 | XMS REPORT ---
:1940 Author Organization eClinicalWorks Care Team Providers Name Role Phone Valentín [facility] Provider Role Unavailable Allergies No Known Allergies [...] Start End Date Status Dosage System Date [facility] 63333286471 - Oct 11, Active as directed Lancets 2018 Results No Known Results Summary Purpose eClinicalPNMsoft Submission
--- OUTSIDE RECORDS SUMMARY | 2018-02-19 11:30 | XMS REPORT ---
[...] Status Dosage System Date Date Anastrozole [facility] 84672416235 1 MG Orally Active 1 tablet Once a day Lipitor [facility] 07334443542 40 MG Orally Active 1 tablet Once a day Protonix [facility] 54680666098 40 MG Orally Active 1 tablet Once a day Topamax [facility] 97952307883 50 MG Orally Active 1 tablet Once a day Ferrous Sulfate [facility] 49504688859 325 (65 Fe) MG Active 1 tablet Orally Once a day Lipitor [facility] 17457930569 40 Active 1 TAB(S) ONCE A DAY ORALLY Tresiba FlexTouch [facility] 96290702137 200 UNIT/ML Active 70 UNITS Subcutaneous DAILY Increase 2 untis after 3 day if BS are high HydrALAZINE HCl [facility] 13971838452 25 MG Orally Active 1 tablet Two times a day with food Tresiba FlexTouch [facility] 17566920488 200 UNIT/ML Active not Subcutaneous defined Tresiba FlexTouch [facility] 64747048053 200 UNIT/ML Active INJECT 70 UNITS UNDER THE SKIN EVERY DAY INCREASE 2 UNITS AFTER 3 DAYS IF BLOOD SUGAR IS HIGH FreeStyle Lite [facility] 17244176894 0 Active CHECK Test BLOOD SUGAR TWICE DAILY Losartan [facility] 24803974607 100 MG Orally Inactive 1 tablet Potassium Once a day Pantoprazole [facility] 01950252359 40 Active TAKE 1 Sodium TABLET BY MOUTH EVERY DAY Citalopram [facility] 23037991603 20 Active TAKE 1 Hydrobromide TABLET BY MOUTH EVERY DAY Meclizine HCl [facility] 45042558973 25 Active CHEW AND SWALLOW 1 TABLET THREE TIMES DAILY Citalopram [facility] 62583766635 20 MG Orally Active 1 tablet Hydrobromide Once a day Coumadin [facility] 71188151724 2 MG Orally Active 1 tablet Once a day Lipitor [facility] 82694794409 40 MG Active 1 TAB(S) ONCE A DAY ORALLY Chlorthalidone [facility] 63731011408 25 MG Orally Inactive 1 tablet Once a day in the morning with food Flonase Allergy [facility] 74730733947 50 MCG/ACT Active 1 spray in Relief Nasally Once a each day nostril Protonix [facility] 15992929081 40 MG Active 1 TAB(S) ONCE A DAY ORALLY BD Pen Needle [facility] 98762171440 0 Active USE DAILY Short U/F Results No Known Results Summary Purpose eClinicalWorks Submission
--- OUTSIDE RECORDS SUMMARY | 2018-02-19 11:30 | XMS REPORT ---
:1940 Author Organization eClinicalWorks Care Team Providers Name Role Phone Valentín [facility] Provider Role Unavailable Allergies No Known [...] Status Dosage System Date Date Ferrous Sulfate [facility] 96588007426 325 (65 Fe) MG Active 1 tablet Orally Once a day FreeStyle Lite [facility] 54265624555 0 Active CHECK BLOOD Test SUGAR TWICE DAILY Citalopram [facility] 59975835443 20 Active TAKE 1 Hydrobromide TABLET BY MOUTH EVERY DAY Meclizine HCl [facility] 72453869223 25 Active CHEW AND SWALLOW 1 TABLET THREE TIMES DAILY Lipitor ND 91497906520 40 MG Orally Active 1 tablet Once a day Flonase Allergy ND 24441252390 50 MCG/ACT Active 1 spray in Relief Nasally Once a each day nostril Pantoprazole [facility] 36338624680 40 Active TAKE 1 Sodium TABLET BY MOUTH EVERY DAY FreeStyle [facility] 13273241447 - Oct 11, Active as directed Lancets 2018 HydrALAZINE HCl [facility] 74657693896 25 MG Orally Active 1 tablet Two times a day with food Lyrica [facility] 65184769787 50 MG Orally Oct 30, Active 1 capsule Twice a day 2017 BD Pen Needle [facility] 93137048452 0 Active USE DAILY Short U/F Anastrozole [facility] 30156637372 1 MG Orally Active 1 tablet Once a day Topamax [facility] 20998711176 50 MG Orally Active 1 tablet Once a day Coumadin [facility] 97659215370 2 MG Orally Active 1 tablet Once a day Tresiba [facility] 21154472940 200 UNIT/ML Active INJECT 70 FlexTouch UNITS UNDER THE SKIN EVERY DAY INCREASE 2 UNITS AFTER 3 DAYS IF BLOOD SUGAR IS HIGH Results No Known Results Summary Purpose eClinicalWorks Submission
[2018-02-19 12:49] LABS: Absolute Lymphocytes (CBC) 1.4 K/uL (0.7-4.9); Absolute Monocytes 0.4 K/uL (0.1-1.3); Absolute Neutrophil 6.3 K/uL (1.8-8.0); Basophils % 0.3 % (0-1.3); Eosinophils % 1.5 % (0-4.4); Hematocrit 34.6 % (36.0-45.0); Lymphocytes % 16.9 % (15.3-44.8); MPV 9.7 fL (7.6-11.3); Monocytes % 5.3 % (3.3-12.3); RBC Red Blood Cell Count 3.52 M/uL (3.86-4.86)
[2018-02-19 12:56] LABS: Protime INR 2.01
[2018-02-19 12:58] LABS: ALT/SGPT 18 U/L (12-78); AST/SGOT 12 U/L (15-37); Albumin 3.4 g/dL (3.4-5.0); Alkaline Phosphatase 217 U/L (45-117); BUN Blood Urea Nitrogen 100 mg/dL (7-18); Bicarbonate 28 mmol/L (21-32); Bilirubin Direct 0.1 mg/dL (0-0.2); Bilirubin Total 0.4 mg/dL (0.2-1.0); Magnesium 1.7 mg/dL (1.8-2.4); NT PRO-BNP 1013 pg/mL (<450); Potassium 5.9 mmol/L (3.5-5.1); Protein, Total 7.9 g/dL (6.4-8.2); Sodium Level 127 mmol/L (136-145); Troponin (Emerg Dept Use Only) < 0.02 ng/mL (0.0-0.045)
[2018-02-19 13:01] LABS: Glucose Level 834 mg/dL (74-106)
--- NOTE | 2018-02-19 13:49 | RAD REPORT ---
EXAM DESCRIPTION: Kya Single View02/19/2018 1:29 pm CLINICAL HISTORY: Hypertension COMPARISON: January 15, 2018 FINDINGS: Mild bilateral interstitial lung opacities probably are mostly if not all chronic. The heart is mildly enlarged
[2018-02-19 14:00] LABS: Urine Blood 3+ (NEG); Urine Glucose 2+ (NEG); Urine Protein TRACE (NEG); Urine pH 5.5 (5.0-7.0)
[2018-02-19] MEDS ORDERED: INSULIN -REGULAR HUMAN 100 UNIT in NA CHLORIDE 0.9% 100 ML IV SCH ×2 (14:00→15:16)
[2018-02-19] MEDS ORDERED: NA CHLORIDE 0.9% 1,000 ML ONE (14:20)
[2018-02-19] MEDS ORDERED: INSULIN -REGULAR HUMAN 50 UNIT/0.5 ML ML ONE (14:20)
[2018-02-19 14:22] LABS: Urine Bacteria >50 /HPF (<20); Urine Culture Reflex Order REFLEXED; Urine RBC >50 /HPF (NONE SEEN)
--- NOTE | 2018-02-19 14:48 | ER ---
Nurse's Notes [facility] Name: Sarah Garcia Age: 77 yrs Sex: Female : 1940 Arrival Date: 02/19/2018 Time: 11:29 Bed 25 Private MD: Diagnosis: Hyperglycemia, unspecified;Other specified diabetes mellitus with hyperosmolarity Presentation: 02/19 11:35 Presenting complaint: EMS states: High blood sugar at home and burning with urination aj for 2 days. EMS reported High reading upon arrival. Patient awake and alert in room in [facility]. Transition of care: patient was not received from another setting of care. Onset of symptoms was February 19, 2018. Risk Assessment: Do you want to hurt yourself or someone else? Patient reports no desire to harm self or others. Initial Sepsis Screen: Does the patient meet any 2 criteria? No. Patient's initial sepsis screen is negative. Does the patient have a suspected source of infection? Yes: Dysuria/Frequency/Urgency/UTI. Note Patient informed me upon arrival to this ER that she forgot to inform EMS that she had a right side mastectomy and couldn't have an IV in that arm. IV removed. Care prior to arrival: Medication(s) given: Normal saline infusion, 500 mL, IV initiated. 18 GA, in the right antecubital area, Oxygen administered. via nasal cannula, Glucose check, >500. 11:35 Method Of Arrival: EMS: [facility] 11:35 Acuity: CHRISS 3 aj Triage Assessment: 11:56 General: Appears in no apparent distress. comfortable, Behavior is calm, cooperative, aj appropriate for age. Pain: Denies pain. Neuro: Level of Consciousness is awake, alert, obeys commands, Oriented to person, place, time, situation, Appropriate for age Reports dizziness. Respiratory: Airway is patent Respiratory effort is even, unlabored, Respiratory pattern is regular, symmetrical. Derm: Skin is intact, is healthy with good turgor, Skin is pink, warm \T\ dry. normal. Historical: - Allergies: 11:56 QUINOLONES; aj - Home Meds: 11:56 alprazolam 0.25 mg Oral tab PRN [Active]; Ambien Oral [Active]; Altace 2.5 mg Oral cap aj once daily [Active]; anastrozole 1 mg Oral tab 1 tab once daily [Active]; aspirin 81 mg Oral chew 1 tab once daily [Active]; atorvastatin 40 mg Oral tab 1 tab once daily [Active]; chlorthalidone 25 mg Oral tab 1 tab once daily [Active]; citalopram 20 mg tab 1 tab once daily [Active]; ferrous sulfate 325 mg (65 mg iron) Oral tab [Active]; meclizine 25 mg Oral tab [Active]; metoprolol succinate 100 mg Oral Tb24 0.5 tab once daily [Active]; pantoprazole 40 mg Oral TbEC 1 tab once daily [Active]; sitagliptin 30mg Oral 1 tab once daily [Active]; Tresiba FlexTouch U-200 200 unit/mL (3 mL) subcutaneous inpn 58 unit nightly [Active]; Vitamin D3 Oral [Active]; - PMHx: 11:56 Atrial Fib; Cancer, Breast; Diabetes - IDDM; GERD; High Cholesterol; Hypertension; aj Myocardial infarction; stage 4 kidney disease; - PSHx: 11:56 lymph node removal, right upper extremity; aj - Immunization history:: Adult Immunizations up to date. - Social history:: Smoking status: Patient/guardian denies using tobacco. - Ebola Screening: : Patient negative for fever greater than or equal to 101.5 degrees Fahrenheit, and additional compatible Ebola Virus Disease symptoms Patient denies exposure to infectious person Patient denies travel to an Ebola-affected area in the 21 days before illness onset No symptoms or risks identified at this time. Screenin:02 Abuse screen: Denies threats or abuse. Denies injuries from another. Nutritional aj screening: No deficits noted. Tuberculosis screening: No symptoms or risk factors identified. Fall Risk None identified. Assessment: 13:02 Reassessment: Patient appears in no apparent distress at this time. No changes from aj previously documented assessment. Vital Signs: 11:56 BP 150 / 78; Pulse 82; Resp 20; Temp 98.4; Pulse Ox 100% on 2 lpm NC; Weight 80.74 kg; aj Height 5 ft. 4 in. (162.56 cm); 13:33 BP 183 / 83; Pulse 81; Resp 16; Pulse Ox 96% on 2 lpm NC; aj 14:35 BP 148 / 60; Pulse 80; Resp 18; Pulse Ox 99% on 2 lpm NC; aj 11:56 Body Mass Index 30.55 (80.74 kg, 162.56 cm) aj 11:56 Patient is on NC 2 liters continuously at home. aj ED Course: 11:29 Patient arrived in ED. aj 11:37 Poli Juarez MD is Attending Physician. gs 11:45 Arm band placed on left wrist. Patient placed in an exam room, on a stretcher, on aj oxygen, on lien searcher, on pulse oximetry. 11:45 Missed attempt(s): 22 gauge in left wrist. forearm. Bleeding controlled, band aid aj applied, catheter tip intact. 11:48 Rita Pittman, RN is Primary Nurse. aj 11:52 Triage completed. aj 12:40 Inserted saline lock: 20 gauge in left antecubital area, using aseptic technique. Blood aj collected. By Lucero Gates. 13:02 Patient has correct armband on for positive identification. Placed in gown. Bed in low aj position. Side rails up X2. reimbursement rep on. Pulse ox on. NIBP on. 13:03 Notified ED physician of a critical lab result(s). K+ 5.9 and glucose 834. aj 13:17 EKG done, by licensed chemical spray technician. reviewed by Poli Juarez MD. sm3 13:18 Burnett cath inserted, using sterile technique, 16 Fr., by il, balloon inflated, urine aj specimen collected. returned Mansura cloudy urine. Patient tolerated well. 13:29 XRAY Chest (1 view) In Process Unspecified. EDMS 13:34 Noise minimized. Lights dimmed. Warm blanket given. Oral care given. Verbal reassurance aj given. 14:45 Wendy Laura MD is Hospitalizing Provider. gs 15:23 No provider procedures requiring assistance completed. Patient admitted, IV remains in aj place. intact. Administered Medications: 13:44 CANCELLED (Duplicate Order): Insulin Drip - (Insulin Regular Human 100 units, NS 0.9% gs 100 ml) IV at calculated rate continuous; Standard concentration 1unit/ml; Dose for DKA is 0.1 units/kg/hr 14:10 Drug: Insulin Regular Human 5 units {Co-Signature: tl3 (Lana Nelson RN).} Route: IVP; aj Site: left antecubital; 15:24 Follow up: Response: No adverse reaction aj 14:15 Drug: NS 0.9% 1000 ml Route: IV; Rate: 1 bolus; Site: left antecubital; aj 15:24 Follow up: Response: No adverse reaction; IV Status: Completed infusion; IV Intake: aj 1000ml Point of Care Testing: Blood Glucose: 11:45 Blood Glucose: High (>450 mg/dL); aj 11:45 Unable to obtain IV access or blood for lab confirmation of high glucose. Contacted charge nurse for assistance with IV insertion and labs. Ranges: Intake: 15:24 IV: 1000ml; Total: 1000ml. aj Outcome: 14:46 Decision to Hospitalize by Provider. 15:23 Admitted to ICU accompanied by nurse, via stretcher, room 2, on monitor, with chart, aj Report called to Lynda LOW 15:23 Condition: stable 15:23 Instructed on the need for admit. 15:49 Patient left the ED. aj Signatures: Dispatcher [employer] Rita Chavira, RN RN Poli Verma MD MD gs Montes, Shakira 3 Lana Nelson RN tl3 Corrections: (The following items were deleted from the chart) 12:00 11:56 BP 150 / 78; Pulse 82bpm; Resp 20bpm; Pulse Ox 100% RA; Temp 98.4F; 80.74 kg; aj Height 5 ft. 4 in.; BMI: 30.5; aj
--- NOTE | 2018-02-19 14:48 | EDPHYS ---
Physician Documentation [facility] Name: Sarah Garcia Age: 77 yrs Sex: Female : 1940 Arrival Date: 02/19/2018 Time: 11:29 Bed 25 Private MD: ED Physician Poli Juarez HPI: 02/19 18:30 This 77 yrs old Female presents to ER via EMS with complaints of High Blood gs Sugar, Urinary Problem. 18:30 The patient or guardian reports hyperglycemia. Onset: The symptoms/episode gs began/occurred acutely. Onset: The symptoms/episode began/occurred 2 day(s) ago, and became worse. Associated signs and symptoms: Pertinent positives:. Current symptoms: In the emergency department the patient's symptoms are unchanged from the initial presentation, have worsened. The patient has experienced similar episodes in the past, a few times. Historical: - Allergies: 11:56 QUINOLONES; aj - Home Meds: 11:56 alprazolam 0.25 mg Oral tab PRN [Active]; Ambien Oral [Active]; Altace 2.5 mg Oral cap aj once daily [Active]; anastrozole 1 mg Oral tab 1 tab once daily [Active]; aspirin 81 mg Oral chew 1 tab once daily [Active]; atorvastatin 40 mg Oral tab 1 tab once daily [Active]; chlorthalidone 25 mg Oral tab 1 tab once daily [Active]; citalopram 20 mg tab 1 tab once daily [Active]; ferrous sulfate 325 mg (65 mg iron) Oral tab [Active]; meclizine 25 mg Oral tab [Active]; metoprolol succinate 100 mg Oral Tb24 0.5 tab once daily [Active]; pantoprazole 40 mg Oral TbEC 1 tab once daily [Active]; sitagliptin 30mg Oral 1 tab once daily [Active]; Tresiba FlexTouch U-200 200 unit/mL (3 mL) subcutaneous inpn 58 unit nightly [Active]; Vitamin D3 Oral [Active]; - PMHx: 11:56 Atrial Fib; Cancer, Breast; Diabetes - IDDM; GERD; High Cholesterol; Hypertension; aj Myocardial infarction; stage 4 kidney disease; - PSHx: 11:56 lymph node removal, right upper extremity; aj - Immunization history:: Adult Immunizations up to date. - Social history:: Smoking status: Patient/guardian denies using tobacco. - Ebola Screening: : Patient negative for fever greater than or equal to 101.5 degrees Fahrenheit, and additional compatible Ebola Virus Disease symptoms Patient denies exposure to infectious person Patient denies travel to an Ebola-affected area in the 21 days before illness onset No symptoms or risks identified at this time. ROS: 18:30 Constitutional: Negative for fever. gs 18:30 : Positive for burning with urination. 18:30 All other systems are negative. Exam: 18:30 Head/Face: Normocephalic, atraumatic. Eyes: Pupils equal round and reactive to light, gs extra-ocular motions intact. Lids and lashes normal. Conjunctiva and sclera are non-icteric and not injected. Cornea within normal limits. Periorbital areas with no swelling, redness, or edema. ENT: Nares patent. No nasal discharge, no septal abnormalities noted. Tympanic membranes are normal and external auditory canals are clear. Oropharynx with no redness, swelling, or masses, exudates, or evidence of obstruction, uvula midline. Mucous membranes moist. Neck: Trachea midline, no thyromegaly or masses palpated, and no cervical lymphadenopathy. Supple, full range of motion without nuchal rigidity, or vertebral point tenderness. No Meningismus. Chest/axilla: Normal chest wall appearance and motion. Nontender with no deformity. No lesions are appreciated. Cardiovascular: Regular rate and rhythm with a normal S1 and S2. No gallops, murmurs, or rubs. Normal PMI, no JVD. No pulse deficits. 18:30 Respiratory: Lungs have equal breath sounds bilaterally, clear to auscultation and percussion. No rales, rhonchi or wheezes noted. No increased work of breathing, no retractions or nasal flaring. Abdomen/GI: Soft, non-tender, with normal bowel sounds. No distension or tympany. No guarding or rebound. No evidence of tenderness throughout. Back: No spinal tenderness. No costovertebral tenderness. Full range of motion. Skin: Warm, dry with normal turgor. Normal color with no rashes, no lesions, and no evidence of cellulitis. MS/ Extremity: Pulses equal, no cyanosis. Neurovascular intact. Full, normal range of motion. Neuro: Awake and alert, GCS 15, oriented to person, place, time, and situation. Cranial nerves II-XII grossly intact. Motor strength 5/5 in all extremities. Sensory grossly intact. Cerebellar exam normal. Normal gait. 18:30 Constitutional: The patient appears alert, awake. 18:30 ECG was reviewed by the Attending Physician. Vital Signs: 11:56 BP 150 / 78; Pulse 82; Resp 20; Temp 98.4; Pulse Ox 100% on 2 lpm NC; Weight 80.74 kg; aj Height 5 ft. 4 in. (162.56 cm); 13:33 BP 183 / 83; Pulse 81; Resp 16; Pulse Ox 96% on 2 lpm NC; aj 14:35 BP 148 / 60; Pulse 80; Resp 18; Pulse Ox 99% on 2 lpm NC; aj 11:56 Body Mass Index 30.55 (80.74 kg, 162.56 cm) aj 11:56 Patient is on NC 2 liters continuously at home. aj MDM: 12:25 Patient medically screened. 18:30 Differential diagnosis: DKA, hyperglycemia, uti. Data reviewed: vital signs, nurses gs notes. Response to treatment: the patient's symptoms have markedly improved after treatment, and as a result, I will admit patient. 02/19 11:54 Order name: Glucose, Ancillary Testing; Complete Time: 14:46 EDMS 02/19 12:25 Order name: Basic Metabolic Panel; Complete Time: 13:19 02/19 12:25 Order name: CBC with Diff; Complete Time: 13:02 02/19 12:25 Order name: LFT's; Complete Time: 13:19 02/19 12:25 Order name: Magnesium; Complete Time: 13:19 02/19 12:25 Order name: NT PRO-BNP; Complete Time: 13:19 02/19 12:25 Order name: PT-INR; Complete Time: 13:19 02/19 12:25 Order name: Troponin (emerg Dept Use Only); Complete Time: 13:19 02/19 12:25 Order name: XRAY Chest (1 view); Complete Time: 14:22 02/19 12:25 Order name: Urine Microscopic Only; Complete Time: 14:46 02/19 13:22 Order name: Urine Dipstick--Ancillary (enter results); Complete Time: 14:22 02/19 15:03 Order name: Glucose 02/19 15:38 Order name: Glucose Level; Complete Time: 18:29 EDMS 02/19 12:25 Order name: EKG; Complete Time: 12:26 02/19 12:25 Order name: Cardiac monitoring; Complete Time: 12:41 02/19 12:25 Order name: EKG - Nurse/Tech; Complete Time: 13:20 02/19 12:25 Order name: IV Saline Lock; Complete Time: 12: 02/19 12:25 Order name: Labs collected and sent; Complete Time: 12: 02/19 12:25 Order name: O2 Per Protocol; Complete Time: 12:41 02/19 12:25 Order name: O2 Sat Monitoring; Complete Time: 12: 02/19 12:25 Order name: Urine Dipstick-Ancillary (obtain specimen); Complete Time: 13:20 gs EC:30 Rate is 76 beats/min. Rhythm is regular. RI interval is normal. QRS interval is normal. gs T waves are Inverted. No ST changes noted. Clinical impression: NSR w/ Non-specific ST/T Changes. Interpreted by me. Administered Medications: 13:44 CANCELLED (Duplicate Order): Insulin Drip - (Insulin Regular Human 100 units, NS 0.9% gs 100 ml) IV at calculated rate continuous; Standard concentration 1unit/ml; Dose for DKA is 0.1 units/kg/hr 14:10 Drug: Insulin Regular Human 5 units {Co-Signature: tl3 (Lana Nelson RN).} Route: IVP; Site: left antecubital; 15:24 Follow up: Response: No adverse reaction 14:15 Drug: NS 0.9% 1000 ml Route: IV; Rate: 1 bolus; Site: left antecubital; 15:24 Follow up: Response: No adverse reaction; IV Status: Completed infusion; IV Intake: 1000ml Point of Care Testing: Blood Glucose: 11:45 Blood Glucose: High (>450 mg/dL); aj 11:45 Unable to obtain IV access or blood for lab confirmation of high glucose. Contacted charge nurse for assistance with IV insertion and labs. Ranges: Critical Glucose Levels:Adult <50 mg/dl or >400 mg/dl <40 mg/dl or >180 mg/dl Disposition: 02/19/18 14:46 Hospitalization ordered by Wendy Laura for Inpatient Admission. Preliminary diagnosis are Hyperglycemia, unspecified, Other specified diabetes mellitus with hyperosmolarity. - Bed requested for Intensive Care Unit. - Status is Inpatient Admission. aj - Condition is Stable. - Problem is new. - Symptoms have improved. UTI on Admission? No Critical care time excluding procedures: 18:33 Critical care time: Bedside Care: 10 minutes, Consultation: 10 minutes, Family gs Intervention: 10 minutes. Total time: 30 minutes Signatures: Dispatcher [employer] EDRita Mcadams RN MARANDA aj Lucero Gates RN RN iw Poli Juarez MD MD Lana Nelson RN tl3 Corrections: (The following items were deleted from the chart) 13:44 13:31 Insulin Drip - (Insulin Regular Human 100 units, NS 0.9% 100 ml) IV at calculated gs rate continuous; Standard concentration 1unit/ml; Dose for DKA is 0.1 units/kg/hr ordered. gs 14:53 14:46 Hospitalization Ordered by Wendy Laura MD for Inpatient Admission. Preliminary iw diagnosis is Hyperglycemia, unspecified; Other specified diabetes mellitus with hyperosmolarity. Bed requested for Telemetry/MedSurg (Inpatient). Status is Inpatient Admission. Condition is Stable. Problem is new. Symptoms have improved. UTI on Admission? No. gs 15:49 14:53 02/19/2018 14:46 Hospitalization Ordered by Wendy Laura MD for Inpatient aj Admission. Preliminary diagnosis is Hyperglycemia, unspecified; Other specified diabetes mellitus with hyperosmolarity. Bed requested for Intensive Care Unit. Status is Inpatient Admission. Condition is Stable. Problem is new. Symptoms have improved. UTI on Admission? No. iw
[2018-02-19] MEDS ORDERED: ONDANSETRON 4 MG/2 ML VIAL IV PRN (15:16)
[2018-02-19] MEDS ORDERED: NACHLORIDE 0.45% 1,000 ML IV SCH ×5 (15:16→19:00)
--- NOTE | 2018-02-19 15:26 | P.HP ---
Certification for Inpatient Patient admitted to: Inpatient With expected LOS: >2 Midnights Patient will require the following post-hospital care: None Practitioner: I am a practitioner with admitting privileges, knowledge of patient current condition, hospital course, and medical plan of care. Services: Services provided to patient in accordance with Admission requirements found in Title 42 Section 412.3 of the Code of Federal Regulations Patient History Date of Service: 02/19/18 Primary Care Provider: Dr. Laura Reason for admission: Hyperglycemia History of Present Illness: This is a 77-year-old female with significant past medical history of type 2 diabetes hypertension hyperlipidemia CAD breast cancer status post mastectomy on the right, PVD, GERD, atrial fibrillation, CHF who presented to the ED complaining of hyperglycemia when she checked her blood sugar at home this morning. Patient stated that this morning she started feeling unwell and noticed that her sugars were more than 450 on the glucose monitor that she decided to come to the ER. Patient also has been having some increased frequency and burning during urination for past couple of days. Patient denies having any fever chills nausea vomiting at the house. No abdominal pain noted either. Patient does however mention that her blood sugars has been running high at the house at around 4:00 a.m. for past couple of weeks. Patient has been having long time problem with controlling her blood sugar at the house and has been working with her primary care provider in regards to that. No other complaints to offer at this time. Denies having any chest pain shortness of breath or any other associated symptoms. In the ER patient was found to have blood sugar level of more than 800 and was admitted to the hospital for HHS Allergies Quinolones Allergy (Verified 09/25/17 01:08) Anaphylaxis Home Medications: Anastrozole [Arimidex*] 1 mg PO DAILY 01/09/18 Atorvastatin Calcium 40 mg PO BEDTIME 01/09/18 Citalopram Hydrobromide [Celexa] 20 mg PO DAILY 01/09/18 Ferrous Sulfate 325 mg PO DAILY 01/09/18 Hydralazine [Apresoline*] 25 mg PO BID 01/09/18 Insulin Degludec [Tresiba Flextouch U-200] 40 unit SQ BEDTIME 01/09/18 Meclizine HCl 25 mg PO TID 01/09/18 Pantoprazole [Protonix Tab*] 40 mg PO DAILY 01/09/18 Pregabalin [Lyrica*] 50 mg PO BID 01/09/18 Warfarin Sodium [Coumadin] 2 mg PO DAILY 01/09/18 Furosemide [Lasix] 20 mg PO DAILY #30 tab 01/15/18 - Past Medical/Surgical History Diabetic: Yes -: Atrial fibrillation, Cardiology-Dr. Camarena -: Chronic anticoagulation-Coumadin -: HTN -: GERD -: Chronic renal disease, Baseline GFR-30, Nephrology -: PVD -: Gout -: Depression with Anxiety -: Diabetes mellitus type 2, insulin-dependent -: Coronary disease -: Carotid arterial disease -: Hyperlipidemia -: Appendectomy -: Tubal ligation -: Hysterectomy -: Heart Cath Psychosocial/ Personal History: Patient currently lives in assisted living facility-[facility]. She has 10 children. - Family History Brother -: Diabetes Mother -: Heart disease, Hypertension, Diabetes Notes: arthritis - Social History Alcohol use: No CD- Drugs: No Caffeine use: Yes Review of Systems 10-point ROS is otherwise unremarkable Physical Examination - Physical Exam General: Alert, Oriented x3, Other (Ill-appearing) HEENT: Atraumatic, PERRLA, Mucous membr. moist/pink, EOMI, Sclerae nonicteric Neck: Supple, 2+ carotid pulse no bruit, No LAD, Without JVD or thyroid abnormality Respiratory: Clear to auscultation bilaterally, Normal air movement Cardiovascular: Regular rate/rhythm, Normal S1 S2 Gastrointestinal: Normal bowel sounds, No tenderness Musculoskeletal: No tenderness Integumentary: No rashes Neurological: Normal gait, Normal speech, Normal tone, Normal reflexes 2+, Abnormal strength, Abnormal sensation Lymphatics: No axilla or inguinal lymphadenopathy - Studies Laboratory Data (last 24 hrs) 02/19/18 12:20: PT 23.9 H, INR 2.01 02/19/18 12:20: WBC 8.3, Hgb 11.0 L, Hct 34.6 L, Plt Count 276 02/19/18 12:20: Sodium 127 L, Potassium 5.9 H*, BUN 100 H, Creatinine 3.14 H, Glucose 834 H*, Magnesium 1.7 L, Total Bilirubin 0.4, AST 12 L, ALT 18, Alkaline Phosphatase 217 H Assessment and Plan - Problems (Diagnosis) (1) Hyperglycemic hyperosmolar nonketotic coma Current Visit: Yes Status: Acute Plan: HHS without Coma most likely secondary to UTI -BS on admission 820 and repeat 689 -IV fluid bolus in the ER. Now will continue with Maintenance fluid IV 1/2 NS at 100 ml/hr -Insulin ggt with goal of BS <300 and serum osmolality < 315 -Started ggt on 0.14units/kg/hour and titrate up to 50% if no reduction in the BS of 50-70 in 1st hour -BMP and serum osmolarity q4h -Electrolyte replacement if needed (2) Acute kidney injury superimposed on chronic kidney disease Onset Date: 09/25/17 Current Visit: No Status: Acute Plan: MITCH on CKD -elevated BUN consistent with HHS -IV fluids for now -Nephrology consulted. Awaiting reccs (3) Atrial fibrillation Onset Date: 04/17/16 Current Visit: No Status: Chronic Plan: Restart home medication -BB and anticoagulation Qualifiers: Atrial fibrillation type: chronic Qualified Code(s): I48.2 - Chronic atrial fibrillation (4) CAD (coronary artery disease) Onset Date: 11/27/17 Current Visit: No Status: Chronic Plan: Currently stable at this time. Denies having any chest pain -will restart home medication at this time Qualifiers: Coronary Disease-Associated Artery/Lesion type: [place] artery [place] vs. transplanted heart: [place] heart Associated angina: without angina Qualified Code(s): I25.10 - Atherosclerotic heart disease of [place] coronary artery without angina pectoris (5) CHF (congestive heart failure) Onset Date: 07/06/15 Current Visit: No Status: Chronic Plan: Pt with H/o CHF. -Last ECHO in 04/2016 with Normal EF and No diastolic Function -Will repeat Qualifiers: Heart failure type: systolic Heart failure chronicity: chronic Qualified Code(s): I50.22 - Chronic systolic (congestive) heart failure (6) Carotid arterial disease Onset Date: 04/17/16 Current Visit: No Status: Chronic Qualifiers: Carotid artery disease type: stenosis Laterality: right Qualified Code(s) : I65.21 - Occlusion and stenosis of right carotid artery (7) Depression with anxiety Current Visit: No Status: Chronic Plan: Stable at this time (8) GERD (gastroesophageal reflux disease) Current Visit: No Status: Chronic Plan: On Protonix b.i.d. Qualifiers: Esophagitis presence: without esophagitis Qualified Code(s): K21.9 - Gastro -esophageal reflux disease without esophagitis (9) HTN (hypertension) Onset Date: 04/17/16 Current Visit: No Status: Chronic Plan: Stable at this time will restart home medication Qualifiers: Hypertension type: essential hypertension Qualified Code(s): I10 - Essential (primary) hypertension (10) Hyperlipidemia Onset Date: 11/27/17 Current Visit: No Status: Chronic Plan: Stable at this time and restart home medication Qualifiers: (11) Type II diabetes mellitus Current Visit: No Status: Chronic Qualifiers: Diabetes mellitus terminal worker insulin use: without terminal worker use Diabetes mellitus complication status: with hyperglycemia Qualified Code(s): E11.65 - Type 2 diabetes mellitus with hyperglycemia - Plan Patient will be admitted to the ICU for insulin drip for treatment of her HHS Discharge Plan: Home Plan to discharge in: 48 Hours - Advance Directives Does patient have a Living Will: Yes Does patient have a Durable POA for Healthcare: Yes - Code Status/Comfort Care Code Status Assessed: Yes Critical Care: No
[2018-02-19 16:02] LABS: Absolute Monocytes 0.6 K/uL (0.1-1.3); Absolute Neutrophil 4.8 K/uL (1.8-8.0); Basophils % 0.4 % (0-1.3); Eosinophils % 1.3 % (0-4.4); Hematocrit 31.6 % (36.0-45.0); Lymphocytes % 27.1 % (15.3-44.8); MPV 9.1 fL (7.6-11.3); Monocytes % 7.5 % (3.3-12.3); RBC Red Blood Cell Count 3.28 M/uL (3.86-4.86)
[2018-02-19 16:22] LABS: Potassium 4.5 mmol/L (3.5-5.1)
[2018-02-19] MEDS ORDERED: CALCIUM GLUC 10% INJ 4.65 MEQ in NA CHLORIDE 0.9% 100 ML IV ONE (16:40)
[2018-02-19] MEDS: CEFTRIAXONE/SWI 1gm 1 GM/10 ML SYR IVP SCH (16:45)
[2018-02-19] MEDS: ENOXAPARIN 30 MG/0.3 ML SQ SCH (16:45)
[2018-02-19] MEDS: PREGABALIN 50 MG CAP PO SCH (17:28)
--- NOTE | 2018-02-19 18:12 | RAD REPORT ---
EXAM DESCRIPTION: RAD - Abdomen 1 View (KUB) - 02/19/2018 6:06 pm CLINICAL HISTORY: Abdomen pain. FINDINGS: The bowel gas pattern is unremarkable. Small calcifications pelvis likely represents phlebolith
--- NOTE | 2018-02-19 18:20 | EKG ---
Test Date: 2018-02-19 Test Time: 12:52:09 Scrubber System Attendant: KATIE MEASUREMENT RESULTS: Intervals: Rate: 76 WI: 192 QRSD: 76 QT: 406 QTc: 456 [place]: P: 5 WI: 192 QRS: -5 T: 51 INTERPRETIVE STATEMENTS: Normal sinus rhythm Minimal voltage criteria for LVH, may be normal variant Inferior infarct, age undetermined Anterior infarct, age undetermined Abnormal ECG Compared to ECG 01/09/2018 12:53:09 Left ventricular hypertrophy now present Myocardial infarct finding still present Electronically Signed On 02-19-18 18:19:16 COPIER REPAIR TECHNICIAN by Kristopher Nino
--- NOTE | 2018-02-19 18:23 | P.CNS ---
Date of Consult: 02/19/18 Reason for Consult: MITCH Requesting Physician: Wendy Laura Primary Care Provider: Dr. Laura Chief Complaint: Hyperglycemia History of Present Illness: 77 yo HF admitted with uncontrolled DM complicated by MITCH. Limited HPI/ ROS in the setting of acute illness; poor historian. This is a 77-year-old female with significant past medical history of type 2 diabetes hypertension hyperlipidemia CAD breast cancer status post mastectomy on the right, PVD, GERD, atrial fibrillation, CHF who presented to the ED complaining of hyperglycemia when she checked her blood sugar at home this morning. Patient stated that this morning she started feeling unwell and noticed that her sugars were more than 450 on the glucose monitor that she decided to come to the ER. Patient also has been having some increased frequency and burning during urination for past couple of days. Patient denies having any fever chills nausea vomiting at the house. No abdominal pain noted either. Patient does however mention that her blood sugars has been running high at the house at around 4:00 a.m. for past couple of weeks. Patient has been having long time problem with controlling her blood sugar at the house and has been working with her primary care provider in regards to that. No other complaints to offer at this time. Denies having any chest pain shortness of breath or any other associated symptoms. In the ER patient was found to have blood sugar level of more than 800 and was admitted to the hospital for HHS Allergies Quinolones Allergy (Verified 09/25/17 01:08) Anaphylaxis Home medications list reviewed: Yes Home Medications: Anastrozole [Arimidex*] 1 mg PO DAILY 01/09/18 Atorvastatin Calcium 40 mg PO BEDTIME 01/09/18 Citalopram Hydrobromide [Celexa] 20 mg PO DAILY 01/09/18 Ferrous Sulfate 325 mg PO DAILY 01/09/18 Hydralazine [Apresoline*] 25 mg PO BID 01/09/18 Insulin Degludec [Tresiba Flextouch U-200] 40 unit SQ BEDTIME 01/09/18 Meclizine HCl 25 mg PO TID 01/09/18 Pantoprazole [Protonix Tab*] 40 mg PO DAILY 01/09/18 Pregabalin [Lyrica*] 50 mg PO BID 01/09/18 Warfarin Sodium [Coumadin] 2 mg PO DAILY 01/09/18 Furosemide [Lasix] 20 mg PO DAILY #30 tab 01/15/18 Losartan Potassium [Cozaar] 100 mg PO DAILY 02/19/18 - Past Medical/Surgical History Diabetic: Yes -: Atrial fibrillation, Cardiology-Dr. Camarena -: Chronic anticoagulation-Coumadin -: HTN -: GERD -: Chronic renal disease, Baseline GFR-30, Nephrology -: PVD -: Gout -: Depression with Anxiety -: Diabetes mellitus type 2, insulin-dependent -: Coronary disease -: Carotid arterial disease -: Hyperlipidemia -: Appendectomy -: Tubal ligation -: Hysterectomy -: Heart Cath -: right breast lumpectomy with lymph node removal Psychosocial/ Personal History: Patient currently lives in assisted living facility-[facility]. She has 10 children. - Family History Brother Medical History: Diabetes Mother Medical History: Heart disease, Hypertension, Diabetes Notes: arthritis - Social History Smoking Status: Never smoker Alcohol use: No CD- Drugs: No Caffeine use: Yes Place of Residence: Home Review of Systems 10-point ROS is otherwise unremarkable General: Weakness, Malaise Genitourinary: Dysuria, Frequency Neurological: Weakness Physical Examination Temp Pulse Resp BP Pulse Ox 97.9 F 77 17 128/45 L 100 02/19/18 16:00 02/19/18 18:00 02/19/18 18:00 02/19/18 18:00 02/19/18 18:00 General: In no apparent distress, Cooperative Neck: Supple, JVD not distended Respiratory: Clear to auscultation bilaterally Cardiovascular: No edema, Regular rate/rhythm, No rubs Gastrointestinal: Soft and benign, Non-distended, No guarding Musculoskeletal: No clubbing, No contractures Integumentary: No rashes, No erythema, No cyanosis Laboratory Data (last 24 hrs) 02/19/18 12:20: PT 23.9 H, INR 2.01 02/19/18 12:20: WBC 8.3, Hgb 11.0 L, Hct 34.6 L, Plt Count 276 02/19/18 12:20: Sodium 127 L, Potassium 5.9 H*, BUN 100 H, Creatinine 3.14 H, Glucose 834 H*, Magnesium 1.7 L, Total Bilirubin 0.4, AST 12 L, ALT 18, Alkaline Phosphatase 217 H Imagings Data: EXAM DESCRIPTION: RADChest Single View02/19/2018 1:29 pm CLINICAL HISTORY: Hypertension COMPARISON: January 15, 2018 FINDINGS: Mild bilateral interstitial lung opacities probably are mostly if not all chronic. The heart is mildly enlarged EXAM DESCRIPTION: RAD - Abdomen 1 View (KUB) - 02/19/2018 6:06 pm CLINICAL HISTORY: Abdomen pain. FINDINGS: The bowel gas pattern is unremarkable. Small calcifications pelvis likely represents phlebolith Conclusions/Impression: A/ MITCH likely hypovolemia. CKD IV with proteinuria. DM II with CKD. HHS. Hypocalcemia. Hypomagnesemia. Hyperkalemia. Anemia in chronic illness. HTN complicated by hypotension. Diastolic CHF, chronic. P/ Continue current POC and Medications. Agree with aggressive fluid resuscitation. Give another IVF bolus. Insulin gtt as ordered. Restart home medications as indicated. No NSAIDs. AM labs. Daily weight. Thank you kindly for the consultation. Case discussed with Dr. Laura. Critical Care: Yes (Greater than 30min.)
[2018-02-19] MEDS ORDERED: GLUCAGON 1 MG/VIAL IM PRN (18:37)
[2018-02-19] MEDS ORDERED: D50W 25 GM/50 ML SYRINGE IV PRN (18:37)
[2018-02-19] MEDS ORDERED: HOME MED 1 EA UNK (Meclizine Hcl [Meclizine Hcl] 25 MG) PO SCH (21:00)
[2018-02-19] MEDS: INSULIN -REGULAR HUMAN 50 UNIT/0.5 ML ML SQ SCH (21:00)
[2018-02-19] MEDS: MECLIZINE HCL 12.5 MG TAB PO SCH (21:24)
[2018-02-19] MEDS: ATORVASTATIN 40 MG TAB PO SCH (21:24)
[2018-02-19] MEDS: HYDRALAZINE HCL 25 MG TABLET PO SCH (21:24)
[2018-02-19] MEDS: ACETAMINOPHEN 325 MG TABLET PO PRN (21:26)
[2018-02-19 23:43] LABS: Potassium 4.5 mmol/L (3.5-5.1)
[2018-02-20 00:13] LABS: Albumin 2.6 g/dL (3.4-5.0)
[2018-02-20] MEDS: INSULIN -REGULAR HUMAN 50 UNIT/0.5 ML ML SQ SCH ×5 (01:53→20:31)
[2018-02-20 05:12] VITALS: BMI 30.6
[2018-02-20 05:13] LABS: Absolute Lymphocytes (CBC) 2.4 K/uL (0.7-4.9); Absolute Monocytes 0.4 K/uL (0.1-1.3); Basophils % 0.5 % (0-1.3); Eosinophils % 3.7 % (0-4.4); Hematocrit 29.3 % (36.0-45.0); Lymphocytes % 33.9 % (15.3-44.8); MPV 9.2 fL (7.6-11.3); RBC Red Blood Cell Count 3.12 M/uL (3.86-4.86)
[2018-02-20 05:32] LABS: Albumin 2.6 g/dL (3.4-5.0); Bilirubin Total 0.3 mg/dL (0.2-1.0); Magnesium 1.8 mg/dL (1.8-2.4); Phosphorus 3.6 mg/dL (2.5-4.9); Potassium 3.9 mmol/L (3.5-5.1); Protein, Total 6.1 g/dL (6.4-8.2)
[2018-02-20] MEDS: HYDRALAZINE HCL 25 MG TABLET PO SCH ×2 (08:36→20:32)
[2018-02-20] MEDS: ENOXAPARIN 30 MG/0.3 ML SQ SCH (08:36)
[2018-02-20] MEDS: CEFTRIAXONE/SWI 1gm 1 GM/10 ML SYR IVP SCH (08:36)
[2018-02-20] MEDS: MECLIZINE HCL 12.5 MG TAB PO SCH ×3 (08:37→20:32)
[2018-02-20] MEDS: PANTOPRAZOLE 40MG TABLET PO SCH (08:38)
[2018-02-20] MEDS: FERROUS SULFATE 325 MG TAB PO SCH (08:38)
[2018-02-20] MEDS: CITALOPRAM 10 MG TABLET PO SCH (08:38)
[2018-02-20] MEDS: FUROSEMIDE 20 MG TABLET PO SCH (08:38)
[2018-02-20] MEDS: PREGABALIN 50 MG CAP PO SCH ×2 (08:38→20:32)
[2018-02-20] MEDS: ANASTROZOLE 1 MG TAB PO SCH (08:38)
[2018-02-20] MEDS: WARFARIN SODIUM 2 MG TAB PO SCH (08:38)
[2018-02-20] MEDS: CALCIUM CARBONATE 500 MG TAB PO SCH (08:38)
[2018-02-20] MEDS ORDERED: HOME MED 1 EA UNK (Citalopram Hydrobromide [Celexa] 20 MG) PO SCH (09:00)
--- NOTE | 2018-02-20 09:01 | RAD REPORT ---
EXAM DESCRIPTION: Kya Single View02/20/2018 6:44 am CLINICAL HISTORY: Shortness of breath COMPARISON: February 19, 2018 FINDINGS: The lungs appear clear of acute infiltrate. The heart is mildly enlarged IMPRESSION: No acute abnormalities displayed
--- NOTE | 2018-02-20 10:35 | ECHO ---
HEIGHT: 5 ft 4 in WEIGHT: 178 lb 7 oz DATE OF STUDY: 02/20/[address]: Wendy Laura MD 2-DIMENSIONAL: YES M.MODE: YES DOPPLER: YES COLOR FLOW: YES TDS: YES PORTABLE: NO DEFINITY: NO BUBBLE STUDY: NO DIAGNOSIS: SHORTNESS OF BREATH CARDIAC HISTORY: CATHERIZATION: NO SURGERY: NO PROSTHETIC VALVE: NO PACEMAKER: NO MEASUREMENTS (cm) DIASTOLIC (NORMALS) SYSTOLIC (NORMALS) IVSd 1.2 (0.6-1.2) LA Diam 3.7 (1.9-4.0) LVEF 60% LVIDd 3.1 (3.5-5.7) LVIDs 2.1 (2.0-3.5) %FS 31% LVPWd 1.1 (0.6-1.2) Ao Diam 2.5 (2.0-3.7) 2 DIMENSIONAL ASSESSMENT: RIGHT ATRIUM: NORMAL LEFT ATRIUM: NORMAL RIGHT VENTRICLE: NORMAL LEFT VENTRICLE: NORMAL TRICUSPID VALVE: NORMAL MITRAL VALVE: NORMAL PULMONIC VALVE: NORMAL AORTIC VALVE: NORMAL PERICARDIAL EFFUSION: NONE AORTIC ROOT: NORMAL LEFT VENTRICULAR WALL MOTION: NORMAL. DOPPLER/COLOR FLOW: MILD TRICUSPID REGURGITATION. NORMAL RIGHT VENTRICULAR SYSTOLIC PRESSURE. IMPAIRED LEFT VENTRICULAR RELAXATION. COMMENTS: NORMAL LEFT VENTRICULAR EJECTION FRACTION. MILD TRICUSPID REGURGITATION. IMPAIRED LEFT VENTRICULAR RELAXATION. TECHNOLOGIST: ESTRELLITA SPENCER RDCS
--- NOTE | 2018-02-20 10:55 | P.PN ---
Subjective Date of Service: 02/20/18 Primary Care Provider: Dr. Laura Chief Complaint: Hyperglycemia Patient seen and examined at bedside with RN. Chart reviewed. Case discussed with nephrology. Currently patient is off of insulin drip. Doing well overall no complaints to offer. States that she feels much better than yesterday. Review of Systems 10-point ROS is otherwise unremarkable Physical Examination - Vital Signs Temperature: 97 F Blood Pressure: 126/62 Pulse: 75 Respirations: 13 Pulse Ox (%): 100 - Physical Exam General: Alert, In no apparent distress HEENT: Atraumatic, PERRLA, EOMI Neck: Supple, JVD not distended Respiratory: Clear to auscultation bilaterally, Normal air movement Cardiovascular: Regular rate/rhythm, Normal S1 S2 Gastrointestinal: Normal bowel sounds, No tenderness Musculoskeletal: No tenderness Integumentary: No rashes Neurological: Normal speech, Normal tone, Normal affect Lymphatics: No axilla or inguinal lymphadenopathy - Studies Laboratory Data (last 24 hrs) 02/19/18 12:20: PT 23.9 H, INR 2.01 02/19/18 12:20: WBC 8.3, Hgb 11.0 L, Hct 34.6 L, Plt Count 276 02/19/18 12:20: Sodium 127 L, Potassium 5.9 H*, BUN 100 H, Creatinine 3.14 H, Glucose 834 H*, Magnesium 1.7 L, Total Bilirubin 0.4, AST 12 L, ALT 18, Alkaline Phosphatase 217 H Medications List Reviewed: Yes Assessment And Plan - Current Problems (Diagnosis) (1) Hyperglycemic hyperosmolar nonketotic coma Current Visit: Yes Status: Acute Plan: HHS without Coma most likely secondary to UTI -now off of insulin drip. -currently on mild sliding scale. -blood sugar checked a.c. HS now -will transfer to the regular floor and resume home medication at this time. -Will monitor closely for any elevation of blood sugars here in the hospital. (2) UTI (urinary tract infection) Onset Date: 07/06/15 Current Visit: No Status: Acute Plan: UA consistent with UTI -urine culture pending at this time -on IV Rocephin. Qualifiers: Urinary tract infection type: acute cystitis Hematuria presence: without hematuria Qualified Code(s): N30.00 - Acute cystitis without hematuria (3) Acute kidney injury superimposed on chronic kidney disease Onset Date: 09/25/17 Current Visit: No Status: Acute Plan: MITCH on CKD -improving today -IV fluids discontinued now -BUN and creatinine improving. -nephrology consulted. Appreciated recommendations (4) Atrial fibrillation Onset Date: 04/17/16 Current Visit: No Status: Chronic Plan: Restart home medication -BB and anticoagulation Qualifiers: Atrial fibrillation type: chronic Qualified Code(s): I48.2 - Chronic atrial fibrillation (5) CAD (coronary artery disease) Onset Date: 11/27/17 Current Visit: No Status: Chronic Plan: Currently stable at this time. Denies having any chest pain -will restart home medication at this time Qualifiers: Coronary Disease-Associated Artery/Lesion type: [place] artery [place] vs. transplanted heart: [place] heart Associated angina: without angina Qualified Code(s): I25.10 - Atherosclerotic heart disease of [place] coronary artery without angina pectoris (6) CHF (congestive heart failure) Onset Date: 07/06/15 Current Visit: No Status: Chronic Plan: Pt with H/o CHF. -Last ECHO in 04/2016 with Normal EF and No diastolic Function -repeat echocardiogram today consistent with normal ejection fraction with impaired relaxation. -patient on PO Lasix at this time Qualifiers: Heart failure type: systolic Heart failure chronicity: chronic Qualified Code(s): I50.22 - Chronic systolic (congestive) heart failure (7) Carotid arterial disease Onset Date: 04/17/16 Current Visit: No Status: Chronic Qualifiers: Carotid artery disease type: stenosis Laterality: right Qualified Code(s) : I65.21 - Occlusion and stenosis of right carotid artery (8) Depression with anxiety Current Visit: No Status: Chronic Plan: Stable at this time (9) GERD (gastroesophageal reflux disease) Current Visit: No Status: Chronic Plan: On Protonix b.i.d. Qualifiers: Esophagitis presence: without esophagitis Qualified Code(s): K21.9 - Gastro -esophageal reflux disease without esophagitis (10) HTN (hypertension) Onset Date: 04/17/16 Current Visit: No Status: Chronic Plan: Stable at this time will restart home medication Qualifiers: Hypertension type: essential hypertension Qualified Code(s): I10 - Essential (primary) hypertension (11) Hyperlipidemia Onset Date: 11/27/17 Current Visit: No Status: Chronic Plan: Stable at this time and restart home medication Qualifiers: (12) Type II diabetes mellitus Current Visit: No Status: Chronic Qualifiers: Diabetes mellitus intermediate insulin use: without termite renewal inspector use Diabetes mellitus complication status: with hyperglycemia Qualified Code(s): E11.65 - Type 2 diabetes mellitus with hyperglycemia - Plan Pending clinical improvement at this time. Will transfer patient to the medical -surgical floor at this time. Continue IV antibiotics until urine culture result Discharge Plan: Home Plan to discharge in: 48 Hours - Code Status/Comfort Care Code Status Assessed: Yes Critical Care: No
[2018-02-20] MEDS: ATORVASTATIN 40 MG TAB PO SCH (20:35)
--- NOTE | 2018-02-20 21:02 | P.PN ---
Date of Service: 02/20/18 Vital Signs Temp Pulse Resp BP Pulse Ox 97.6 F 75 16 103/51 L 96 02/20/18 16:00 02/20/18 16:00 02/20/18 16:00 02/20/18 16:00 02/20/18 16:00 Medications Acetaminophen (Tylenol -Tablet) 325 mg PO Q6H PRN PRN Reason: [id number] Stop: 03/21/18 15:59 Last Admin: 02/19/18 21:26 Dose: 325 mg Anastrozole (Arimidex) 1 mg PO DAILY [facility] Stop: 03/20/18 09:01 Last Admin: 02/20/18 08:38 Dose: 1 mg Atorvastatin Calcium (Lipitor) 40 mg PO BEDTIME [facility] Stop: 03/21/18 21:01 Last Admin: 02/20/18 20:35 Dose: 40 mg Calcitriol (Rocaltrol) 0.5 mcg PO DAILY [facility] Stop: 03/22/18 21:01 Calcium Carbonate/Glycine (Oscal) 500 mg PO DAILY [facility] Stop: 03/22/18 09:01 Last Admin: 02/20/18 08:38 Dose: 500 mg Cholecalciferol (Vitamin D 5,000 Iu Cap) 5,000 unit PO DAILY [facility] Stop: 03/22/18 21:01 Citalopram Hydrobromide (Celexa) 20 mg PO DAILY [facility] Stop: 03/22/18 09:01 Last Admin: 02/20/18 08:38 Dose: 20 mg Dextrose (Dextrose 50% Syringe) 12.5 gm IV PRN PRN; Protocol PRN Reason: HYPOGLYCEMIA Stop: 03/21/18 18:38 Enoxaparin Sodium (Lovenox 30 Mg Inj) 30 mg SQ DAILY [facility] Stop: 03/21/18 16:01 Last Admin: 02/20/18 08:36 Dose: 30 mg Ferrous Sulfate (Feosol) 325 mg PO DAILY [facility] Stop: 03/22/18 09:01 Last Admin: 02/20/18 08:38 Dose: 325 mg Furosemide (Lasix) 20 mg PO DAILY [facility] Stop: 03/22/18 09:01 Last Admin: 02/20/18 08:38 Dose: 20 mg Glucagon (Glucagen) 1 mg IM 1X PRN; Protocol PRN Reason: HYPOGLYCEMIA Stop: 03/21/18 18:38 Hydralazine HCl (Apresoline) 25 mg PO BID [facility] Stop: 03/21/18 21:01 Last Admin: 02/20/18 20:32 Dose: 25 mg Ceftriaxone Sodium/Sodium Chloride (Rocephin 1 Gm/10 Ml Swi Ivp) 1 gm in 10 mls @ 600 mls/hr IVP DAILY [facility]; Protocol Stop: 03/21/18 17:01 Last Admin: 02/20/18 08:36 Dose: 10 mls Insulin Human Regular (Novolin -R) 0 unit SQ ACHS [facility]; Protocol Stop: 03/21/18 21:01 Last Admin: 02/20/18 20:31 Dose: 8 unit Meclizine HCl (Antivert) 25 mg PO TID [facility] Stop: 03/21/18 21:01 Last Admin: 02/20/18 20:32 Dose: 25 mg Ondansetron HCl (Zofran) 4 mg IV Q6H PRN PRN Reason: NAUSEA / VOMITING Stop: 03/21/18 15:17 Pantoprazole Sodium (Protonix Tab) 40 mg PO ACB [facility] Stop: 03/22/18 07:31 Last Admin: 02/20/18 08:38 Dose: 40 mg Pregabalin (Lyrica) 50 mg PO BID [facility] Stop: 03/21/18 21:01 Last Admin: 02/20/18 20:32 Dose: 50 mg Warfarin Sodium (Coumadin) 2 mg PO DAILY [facility] Stop: 03/22/18 09:01 Last Admin: 02/20/18 08:38 Dose: 2 mg Assessment/ Plan: Nephrology CPS stable without CP or SOB. No acute events overnight. Feeling better today but not to her baseline. Vitals, medications, blood work and imaging reviewed in the chart. General: In no apparent distress, Cooperative Neck: Supple, JVD not distended Respiratory: Clear to auscultation bilaterally Cardiovascular: LE edema trace, Regular rate/rhythm, No rubs Gastrointestinal: Soft and benign, Non-distended, No guarding Musculoskeletal: No clubbing, No contractures Integumentary: No rashes, No erythema, No cyanosis Laboratory Data (last 24 hrs) 02/19/18 12:20: PT 23.9 H, INR 2.01 02/19/18 12:20: WBC 8.3, Hgb 11.0 L, Hct 34.6 L, Plt Count 276 02/19/18 12:20: Sodium 127 L, Potassium 5.9 H*, BUN 100 H, Creatinine 3.14 H, Glucose 834 H*, Magnesium 1.7 L, Total Bilirubin 0.4, AST 12 L, ALT 18, Alkaline Phosphatase 217 H Imagings Data: EXAM DESCRIPTION: RADChest Single View02/19/2018 1:29 pm CLINICAL HISTORY: Hypertension COMPARISON: January 15, 2018 FINDINGS: Mild bilateral interstitial lung opacities probably are mostly if not all chronic. The heart is mildly enlarged EXAM DESCRIPTION: RAD - Abdomen 1 View (KUB) - 02/19/2018 6:06 pm CLINICAL HISTORY: Abdomen pain. FINDINGS: The bowel gas pattern is unremarkable. Small calcifications pelvis likely represents phlebolith Conclusions/Impression: A/ MITCH likely hypovolemia. CKD IV with proteinuria. DM II with CKD. HHS. Hypocalcemia. Hypomagnesemia. Hyperkalemia. Anemia in chronic illness. HTN complicated by hypotension. Diastolic CHF, chronic. P/ Continue current POC and Medications. IVF were stopped today. Agree with calcium replacement. Vitamin D started. Adjust insulin as needed. No NSAIDs. AM labs. Daily weight.
[2018-02-20] MEDS: VITAMIN D 5,000 UNIT CAP PO SCH (21:32)
[2018-02-20] MEDS: CALCITROL 0.25 MCG CAP PO SCH (21:32)
[2018-02-21 04:27] LABS: Absolute Lymphocytes (CBC) 1.6 K/uL (0.7-4.9); Absolute Monocytes 0.4 K/uL (0.1-1.3); Absolute Neutrophil 4.4 K/uL (1.8-8.0); Basophils % 0.5 % (0-1.3); Eosinophils % 5.4 % (0-4.4); Hematocrit 30.7 % (36.0-45.0); Lymphocytes % 23.6 % (15.3-44.8); MPV 9.4 fL (7.6-11.3); Monocytes % 5.7 % (3.3-12.3); RBC Red Blood Cell Count 3.24 M/uL (3.86-4.86)
[2018-02-21 04:34] LABS: Albumin 2.7 g/dL (3.4-5.0); Bilirubin Total 0.2 mg/dL (0.2-1.0); Potassium 4.8 mmol/L (3.5-5.1); Protein, Total 6.6 g/dL (6.4-8.2); Uric Acid 11.5 mg/dL (2.6-6.0)
[2018-02-21 07:09] LABS: Magnesium 1.7 mg/dL (1.8-2.4)
[2018-02-21] MEDS ORDERED: Meropenem 1000 MG/VIAL IV SCH (09:00)
[2018-02-21] MEDS: WARFARIN SODIUM 2 MG TAB PO SCH (09:42)
[2018-02-21] MEDS: MECLIZINE HCL 12.5 MG TAB PO SCH ×3 (09:42→20:29)
[2018-02-21] MEDS: CALCITROL 0.25 MCG CAP PO SCH (09:42)
[2018-02-21] MEDS: CITALOPRAM 10 MG TABLET PO SCH (09:42)
[2018-02-21] MEDS: FERROUS SULFATE 325 MG TAB PO SCH (09:42)
[2018-02-21] MEDS: PREGABALIN 50 MG CAP PO SCH ×2 (09:43→20:28)
[2018-02-21] MEDS: FUROSEMIDE 20 MG TABLET PO SCH (09:43)
[2018-02-21] MEDS: ENOXAPARIN 30 MG/0.3 ML SQ SCH (09:43)
[2018-02-21] MEDS: HYDRALAZINE HCL 25 MG TABLET PO SCH ×2 (09:43→20:29)
[2018-02-21] MEDS: VITAMIN D 5,000 UNIT CAP PO SCH (09:43)
[2018-02-21] MEDS: CALCIUM CARBONATE 500 MG TAB PO SCH (09:43)
[2018-02-21] MEDS: PANTOPRAZOLE 40MG TABLET PO SCH (09:43)
[2018-02-21] MEDS: INSULIN -REGULAR HUMAN 50 UNIT/0.5 ML ML SQ SCH ×5 (09:44→20:35)
[2018-02-21] MEDS: ANASTROZOLE 1 MG TAB PO SCH (09:46)
[2018-02-21] MEDS: CEFTRIAXONE/SWI 1gm 1 GM/10 ML SYR IVP SCH (09:47)
--- NOTE | 2018-02-21 12:06 | P.PN ---
Subjective Date of Service: 02/21/18 Primary Care Provider: Dr. Laura Chief Complaint: Hyperglycemia Patient seen and examined at bedside with RN. Chart reviewed. Case discussed with nephrology. Doing well overall no complaints to offer. States that she feels much better than yesterday. Review of Systems 10-point ROS is otherwise unremarkable Physical Examination - Vital Signs Temperature: 98.6 F Blood Pressure: 131/62 Pulse: 83 Respirations: 18 Pulse Ox (%): 97 - Physical Exam General: Alert, In no apparent distress HEENT: Atraumatic, PERRLA, EOMI Neck: Supple, JVD not distended Respiratory: Clear to auscultation bilaterally, Normal air movement Cardiovascular: Regular rate/rhythm, Normal S1 S2 Gastrointestinal: Normal bowel sounds, No tenderness Musculoskeletal: No tenderness Integumentary: No rashes Neurological: Normal speech, Normal tone, Normal affect Lymphatics: No axilla or inguinal lymphadenopathy - Studies Medications List Reviewed: Yes Assessment And Plan - Current Problems (Diagnosis) (1) Hyperglycemic hyperosmolar nonketotic coma Current Visit: Yes Status: Acute Plan: HHS without Coma most likely secondary to UTI. Resolved. -Switched to Mod sliding scale -blood sugar checked a.c. HS now - (2) UTI (urinary tract infection) Onset Date: 07/06/15 Current Visit: No Status: Acute Plan: UA consistent with UTI -urine culture + for ESBL -IV merem 1g Q12h arranged for now -PICC line to be placed -SNF vs for IV abx -CM consulted for DC planning Qualifiers: Urinary tract infection type: acute cystitis Hematuria presence: without hematuria Qualified Code(s): N30.00 - Acute cystitis without hematuria (3) Acute kidney injury superimposed on chronic kidney disease Onset Date: 09/25/17 Current Visit: No Status: Acute Plan: MITCH on CKD -BUN and creatinine improving. -nephrology consulted. Appreciated recommendations (4) Atrial fibrillation Onset Date: 04/17/16 Current Visit: No Status: Chronic Plan: Restart home medication -BB and anticoagulation Qualifiers: Atrial fibrillation type: chronic Qualified Code(s): I48.2 - Chronic atrial fibrillation (5) CAD (coronary artery disease) Onset Date: 11/27/17 Current Visit: No Status: Chronic Plan: Currently stable at this time. Denies having any chest pain -will restart home medication at this time Qualifiers: Coronary Disease-Associated Artery/Lesion type: [place] artery [place] vs. transplanted heart: [place] heart Associated angina: without angina Qualified Code(s): I25.10 - Atherosclerotic heart disease of [place] coronary artery without angina pectoris (6) CHF (congestive heart failure) Onset Date: 07/06/15 Current Visit: No Status: Chronic Plan: Pt with H/o CHF. -Last ECHO in 04/2016 with Normal EF and No diastolic Function -repeat echocardiogram today consistent with normal ejection fraction with impaired relaxation. -patient on PO Lasix at this time Qualifiers: Heart failure type: systolic Heart failure chronicity: chronic Qualified Code(s): I50.22 - Chronic systolic (congestive) heart failure (7) Carotid arterial disease Onset Date: 04/17/16 Current Visit: No Status: Chronic Qualifiers: Carotid artery disease type: stenosis Laterality: right Qualified Code(s) : I65.21 - Occlusion and stenosis of right carotid artery (8) Depression with anxiety Current Visit: No Status: Chronic Plan: Stable at this time (9) GERD (gastroesophageal reflux disease) Current Visit: No Status: Chronic Plan: On Protonix b.i.d. Qualifiers: Esophagitis presence: without esophagitis Qualified Code(s): K21.9 - Gastro -esophageal reflux disease without esophagitis (10) HTN (hypertension) Onset Date: 04/17/16 Current Visit: No Status: Chronic Plan: Stable at this time will restart home medication Qualifiers: Hypertension type: essential hypertension Qualified Code(s): I10 - Essential (primary) hypertension (11) Hyperlipidemia Onset Date: 11/27/17 Current Visit: No Status: Chronic Plan: Stable at this time and restart home medication Qualifiers: (12) Type II diabetes mellitus Current Visit: No Status: Chronic Qualifiers: 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 PICC line placement today. IV meropenem started. Patient will need either residential facility versus home health for IV antibiotics for total 14 days. Discharge Plan: Home Plan to discharge in: 48 Hours - Code Status/Comfort Care Code Status Assessed: Yes Critical Care: No
[2018-02-21] MEDS ORDERED: MAGNESIUM SULFATE 1 gm IVPB 1 GM/100 ML BAG IV ONE (17:00)
[2018-02-21] MEDS: ATORVASTATIN 40 MG TAB PO SCH (20:29)
--- NOTE | 2018-02-21 20:35 | P.PN ---
Date of Service: 02/21/18 Vital Signs Temp Pulse Resp BP Pulse Ox 98.2 F 77 18 107/56 L 96 02/21/18 16:00 02/21/18 16:00 02/21/18 16:00 02/21/18 16:00 02/21/18 16:00 Medications Acetaminophen (Tylenol -Tablet) 325 mg PO Q6H PRN PRN Reason: [id number] Stop: 03/21/18 15:59 Last Admin: 02/19/18 21:26 Dose: 325 mg Anastrozole (Arimidex) 1 mg PO DAILY [facility] Stop: 03/20/18 09:01 Last Admin: 02/21/18 09:46 Dose: 1 mg Atorvastatin Calcium (Lipitor) 40 mg PO BEDTIME [facility] Stop: 03/21/18 21:01 Last Admin: 02/21/18 20:29 Dose: 40 mg Calcitriol (Rocaltrol) 0.5 mcg PO DAILY [facility] Stop: 03/22/18 21:01 Last Admin: 02/21/18 09:42 Dose: 0.5 mcg Calcium Carbonate/Glycine (Oscal) 500 mg PO DAILY [facility] Stop: 03/22/18 09:01 Last Admin: 02/21/18 09:43 Dose: 500 mg Cholecalciferol (Vitamin D 5,000 Iu Cap) 5,000 unit PO DAILY [facility] Stop: 03/22/18 21:01 Last Admin: 02/21/18 09:43 Dose: 5,000 unit Citalopram Hydrobromide (Celexa) 20 mg PO DAILY [facility] Stop: 03/22/18 09:01 Last Admin: 02/21/18 09:42 Dose: 20 mg Dextrose (Dextrose 50% Syringe) 12.5 gm IV PRN PRN; Protocol PRN Reason: HYPOGLYCEMIA Stop: 03/21/18 18:38 Enoxaparin Sodium (Lovenox 30 Mg Inj) 30 mg SQ DAILY [facility] Stop: 03/21/18 16:01 Last Admin: 02/21/18 09:43 Dose: 30 mg Ferrous Sulfate (Feosol) 325 mg PO DAILY [facility] Stop: 03/22/18 09:01 Last Admin: 02/21/18 09:42 Dose: 325 mg Furosemide (Lasix) 20 mg PO DAILY [facility] Stop: 03/22/18 09:01 Last Admin: 02/21/18 09:43 Dose: 20 mg Glucagon (Glucagen) 1 mg IM 1X PRN; Protocol PRN Reason: HYPOGLYCEMIA Stop: 03/21/18 18:38 Hydralazine HCl (Apresoline) 25 mg PO BID [facility] Stop: 03/21/18 21:01 Last Admin: 02/21/18 20:29 Dose: 25 mg Meropenem 1,000 mg/ Sodium (Chloride) 100 mls @ 100 mls/hr IV Q12HR [facility] Stop: 03/23/18 10:01 Insulin Glargine (Lantus) 20 units SQ BEDTIME [facility] Stop: 03/23/18 21:01 Insulin Human Regular (Novolin -R) 0 unit SQ ACHS [facility]; Protocol Stop: 03/23/18 11:31 Last Admin: 02/21/18 17:32 Dose: 5 unit Meclizine HCl (Antivert) 25 mg PO TID [facility] Stop: 03/21/18 21:01 Last Admin: 02/21/18 20:29 Dose: 25 mg Ondansetron HCl (Zofran) 4 mg IV Q6H PRN PRN Reason: NAUSEA / VOMITING Stop: 03/21/18 15:17 Pantoprazole Sodium (Protonix Tab) 40 mg PO ACB [facility] Stop: 03/22/18 07:31 Last Admin: 02/21/18 09:43 Dose: 40 mg Pregabalin (Lyrica) 50 mg PO BID [facility] Stop: 03/21/18 21:01 Last Admin: 02/21/18 20:28 Dose: 50 mg Warfarin Sodium (Coumadin) 2 mg PO DAILY [facility] Stop: 03/22/18 09:01 Last Admin: 02/21/18 09:42 Dose: 2 mg Assessment/ Plan: Nephrology CPS stable without CP or SOB. No acute events overnight. Feeling better today but not to her baseline. Vitals, medications, blood work and imaging reviewed in the chart. General: In no apparent distress, Cooperative Neck: Supple, JVD not distended Respiratory: Clear to auscultation bilaterally Cardiovascular: LE edema trace, Regular rate/rhythm, No rubs Gastrointestinal: Soft and benign, Non-distended, No guarding Musculoskeletal: No clubbing, No contractures Integumentary: No rashes, No erythema, No cyanosis Laboratory Data (last 24 hrs) 02/19/18 12:20: PT 23.9 H, INR 2.01 02/19/18 12:20: WBC 8.3, Hgb 11.0 L, Hct 34.6 L, Plt Count 276 02/19/18 12:20: Sodium 127 L, Potassium 5.9 H*, BUN 100 H, Creatinine 3.14 H, Glucose 834 H*, Magnesium 1.7 L, Total Bilirubin 0.4, AST 12 L, ALT 18, Alkaline Phosphatase 217 H Imagings Data: EXAM DESCRIPTION: RADChest Single View02/19/2018 1:29 pm CLINICAL HISTORY: Hypertension COMPARISON: January 15, 2018 FINDINGS: Mild bilateral interstitial lung opacities probably are mostly if not all chronic. The heart is mildly enlarged EXAM DESCRIPTION: RAD - Abdomen 1 View (KUB) - 02/19/2018 6:06 pm CLINICAL HISTORY: Abdomen pain. FINDINGS: The bowel gas pattern is unremarkable. Small calcifications pelvis likely represents phlebolith Conclusions/Impression: A/ MITCH likely hypovolemia. CKD IV with proteinuria. DM II with CKD. HHS. Hypocalcemia. Hypomagnesemia. Hyperkalemia. Anemia in chronic illness. HTN complicated by hypotension. Diastolic CHF, chronic. P/ Continue current POC and Medications. Lantus started today as a substitute for her home Tresiba. Adjust insulin as needed. No NSAIDs. AM labs. Daily weight.
[2018-02-21] MEDS: Meropenem 1,000 MG in NA CHLORIDE 0.9% 100 ML IV SCH (21:00)
[2018-02-21] MEDS ORDERED: INSULIN GLARGINE 100 UNITS/ML SQ SCH (21:00)
[2018-02-22] MEDS: Meropenem 1,000 MG in NA CHLORIDE 0.9% 100 ML IV SCH ×2 (03:37→09:18)
[2018-02-22 06:59] LABS: Albumin 2.7 g/dL (3.4-5.0); Bilirubin Total 0.4 mg/dL (0.2-1.0); Potassium 4.4 mmol/L (3.5-5.1); Protein, Total 6.4 g/dL (6.4-8.2)
--- NOTE | 2018-02-22 08:38 | RAD REPORT ---
EXAM DESCRIPTION: RAD - Chest Single View - 02/22/2018 2:41 am CLINICAL HISTORY: PICC line placement COMPARISON: Chest Single View dated 02/20/2018; Abdomen 1 View (KUB) dated 02/19/2018; Chest Single Vi ew dated 02/19/2018; Chest Single View dated 01/15/2018 FINDINGS: Portable chest was obtained following placement of a left upper extremity PICC line. The c atheter tip projects over the SVC..
[2018-02-22] MEDS: FERROUS SULFATE 325 MG TAB PO SCH (09:00)
[2018-02-22] MEDS: HYDRALAZINE HCL 25 MG TABLET PO SCH (09:16)
[2018-02-22] MEDS: CALCITROL 0.25 MCG CAP PO SCH (09:16)
[2018-02-22] MEDS: ANASTROZOLE 1 MG TAB PO SCH (09:16)
[2018-02-22] MEDS: INSULIN -REGULAR HUMAN 50 UNIT/0.5 ML ML SQ SCH ×2 (09:16→13:02)
[2018-02-22] MEDS: CITALOPRAM 10 MG TABLET PO SCH (09:17)
[2018-02-22] MEDS: WARFARIN SODIUM 2 MG TAB PO SCH (09:17)
[2018-02-22] MEDS: FUROSEMIDE 20 MG TABLET PO SCH (09:17)
[2018-02-22] MEDS: CALCIUM CARBONATE 500 MG TAB PO SCH (09:17)
[2018-02-22] MEDS: MECLIZINE HCL 12.5 MG TAB PO SCH ×2 (09:17→13:03)
[2018-02-22] MEDS: PANTOPRAZOLE 40MG TABLET PO SCH (09:17)
[2018-02-22] MEDS: PREGABALIN 50 MG CAP PO SCH (09:17)
[2018-02-22] MEDS: ENOXAPARIN 30 MG/0.3 ML SQ SCH (09:18)
[2018-02-22] MEDS: VITAMIN D 5,000 UNIT CAP PO SCH (09:18)
[2018-02-22 09:25] VITALS: BP 132/79
[2018-02-22 09:30] VITALS: TEMP 97.6
[2018-02-22 10:17] VITALS: O2SAT 96
[2018-02-22] MEDS: ACETAMINOPHEN 325 MG TABLET PO PRN (14:21)
--- NOTE | 2018-02-22 14:52 | P.DS ---
Admission Date: 02/19/18 Discharge Date: 02/22/18 Primary Care Provider: Dr. Luara Disposition: ROUTINE DISCHARGE Discharge Condition: GOOD Reason for Admission: Hyperglycemia - Problems (1) Hyperglycemic hyperosmolar nonketotic coma Current Visit: Yes Status: Acute (2) UTI (urinary tract infection) Onset Date: 07/06/15 Current Visit: No Status: Acute Qualifiers: Urinary tract infection type: acute cystitis Hematuria presence: without hematuria Qualified Code(s): N30.00 - Acute cystitis without hematuria (3) Acute kidney injury superimposed on chronic kidney disease Onset Date: 09/25/17 Current Visit: No Status: Acute (4) Atrial fibrillation Onset Date: 04/17/16 Current Visit: No Status: Chronic Qualifiers: Atrial fibrillation type: chronic Qualified Code(s): I48.2 - Chronic atrial fibrillation (5) CAD (coronary artery disease) Onset Date: 11/27/17 Current Visit: No Status: Chronic Qualifiers: Coronary Disease-Associated Artery/Lesion type: [place] artery [place] vs. transplanted heart: [place] heart Associated angina: without angina Qualified Code(s): I25.10 - Atherosclerotic heart disease of [place] coronary artery without angina pectoris (6) CHF (congestive heart failure) Onset Date: 07/06/15 Current Visit: No Status: Chronic Qualifiers: Heart failure type: systolic Heart failure chronicity: chronic Qualified Code(s): I50.22 - Chronic systolic (congestive) heart failure (7) Carotid arterial disease Onset Date: 04/17/16 Current Visit: No Status: Chronic Qualifiers: Carotid artery disease type: stenosis Laterality: right Qualified Code(s) : I65.21 - Occlusion and stenosis of right carotid artery (8) Depression with anxiety Current Visit: No Status: Chronic (9) GERD (gastroesophageal reflux disease) Current Visit: No Status: Chronic Qualifiers: Esophagitis presence: without esophagitis Qualified Code(s): K21.9 - Gastro -esophageal reflux disease without esophagitis (10) HTN (hypertension) Onset Date: 04/17/16 Current Visit: No Status: Chronic Qualifiers: Hypertension type: essential hypertension Qualified Code(s): I10 - Essential (primary) hypertension (11) Hyperlipidemia Onset Date: 11/27/17 Current Visit: No Status: Chronic Qualifiers: (12) Type II diabetes mellitus Current Visit: No Status: Chronic Qualifiers: 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 Patient stated that this morning she started feeling unwell and noticed that her sugars were more than 450 on the glucose monitor that she decided to come to the ER. Patient also has been having some increased frequency and burning during urination for past couple of days. Patient denies having any fever chills nausea vomiting at the house. No abdominal pain noted either. Patient does however mention that her blood sugars has been running high at the house at around 4:00 a.m. for past couple of weeks. Patient has been having long time problem with controlling her blood sugar at the house and has been working with her primary care provider in regards to that. No other complaints to offer at this time. Denies having any chest pain shortness of breath or any other associated symptoms. In the ER patient was found to have blood sugar level of more than 800 and was admitted to the hospital for HHS Hospital Course: Overall during the hospital stay patient remained stable Patient was initially admitted to the hospital for HHS. Was also found to have UTI. Patient was initially started on insulin drip and IV fluids. Patient had resolution of her HHS insulin drip was stopped and patient was given long- acting insulin did well overall and thus was transferred to the regular floor. Patient's HHS was most likely secondary to UTI. Patient did grew E. S. BL in her urine and thus was started on IV antibiotics. Patient had a PICC line placed and started on IV meropenem that will be continued for total of 14 days. At that time patient chose to go to [facility] to complete her antibiotics. [facility] there for further care. No other complaints were offered at this time. Patient remained stable while here in the hospital. Patient was asked to follow up with primary care provider once discharged from [facility] facility and was asked to continue taking all her medication as prescribed by her PCP. Vital Signs/Physical Exam: Temp Pulse Resp BP Pulse Ox 97.6 F 75 18 132/79 96 02/22/18 08:00 02/22/18 09:17 02/22/18 08:00 02/22/18 09:17 02/22/18 08:00 General: Alert, In no apparent distress HEENT: Atraumatic, PERRLA, EOMI Neck: Supple, JVD not distended Respiratory: Clear to auscultation bilaterally, Normal air movement Cardiovascular: Regular rate/rhythm, Normal S1 S2 Gastrointestinal: Normal bowel sounds, No tenderness Musculoskeletal: No tenderness Integumentary: No rashes Neurological: Normal speech, Normal tone, Normal affect Lymphatics: No axilla or inguinal lymphadenopathy Laboratory Data at Discharge: WBC 6.8 K/uL (4.3-10.9) 02/22/18 05:31 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 02/22/18 05:31 Hct TRIMMING PRESS OPERATOR 02/22/18 05:31 Plt Count TRIMMING PRESS OPERATOR 02/22/18 05:31 PT 23.9 SECONDS (9.5-12.5) H 02/19/18 12:20 INR 2.01 02/19/18 12:20 Sodium 138 mmol/L (136-145) 02/22/18 05:31 Potassium 4.4 mmol/L (3.5-5.1) 02/22/18 05:31 BUN 76 mg/dL (7-18) H 02/22/18 05:31 Creatinine 2.38 mg/dL (0.55-1.3) H 02/22/18 05:31 Glucose 195 mg/dL (74-106) H 02/22/18 05:31 Uric Acid 11.5 mg/dL (2.6-6.0) H D 02/21/18 03:34 Phosphorus Cancelled 02/20/18 06:00 Magnesium 2.3 mg/dL (1.8-2.4) D 02/22/18 12:00 Total Bilirubin 0.4 mg/dL (0.2-1.0) 02/22/18 05:31 AST 16 U/L (15-37) 02/22/18 05:31 ALT 14 U/L (12-78) 02/22/18 05:31 Alkaline Phosphatase 111 U/L (45-117) 02/22/18 05:31 Home Medications: Anastrozole [Arimidex*] 1 mg PO DAILY 01/09/18 Atorvastatin Calcium 40 mg PO BEDTIME 01/09/18 Citalopram Hydrobromide [Celexa] 20 mg PO DAILY 01/09/18 Ferrous Sulfate 325 mg PO DAILY 01/09/18 Hydralazine [Apresoline*] 25 mg PO BID 01/09/18 Insulin Degludec [Tresiba Flextouch U-200] 40 unit SQ BEDTIME 01/09/18 Meclizine HCl 25 mg PO TID 01/09/18 Pantoprazole [Protonix Tab*] 40 mg PO DAILY 01/09/18 Pregabalin [Lyrica*] 50 mg PO BID 01/09/18 Warfarin Sodium [Coumadin] 2 mg PO DAILY 01/09/18 Furosemide [Lasix*] 20 mg PO DAILY #30 tab 01/15/18 Losartan Potassium [Cozaar] 100 mg PO DAILY 02/19/18 Meropenem [Merrem] 1 gm IV Q12H #11 vial 02/22/18 New Medications: Meropenem [Merrem] 1 gm IV Q12H #11 vial Diet: Regular Activity: Ad laz Followup: Noman Laura, [ACTIVE - CAN ADMIT] - 1 Day (call to schedule an appointment )
--- NOTE | 2018-02-22 20:17 | P.PN ---
Date of Service: 02/22/18 Vital Signs Temp Pulse Resp BP Pulse Ox 97.6 F 75 18 132/79 96 02/22/18 08:00 02/22/18 09:17 02/22/18 08:00 02/22/18 09:17 02/22/18 08:00 Assessment/ Plan: Nephrology CPS stable without CP or SOB. No acute events overnight. Feeling better today but not to her baseline. Vitals, medications, blood work and imaging reviewed in the chart. General: In no apparent distress, Cooperative Neck: Supple, JVD not distended Respiratory: Clear to auscultation bilaterally Cardiovascular: LE edema trace, Regular rate/rhythm, No rubs Gastrointestinal: Soft and benign, Non-distended, No guarding Musculoskeletal: No clubbing, No contractures Integumentary: No rashes, No erythema, No cyanosis Laboratory Data (last 24 hrs) 02/19/18 12:20: PT 23.9 H, INR 2.01 02/19/18 12:20: WBC 8.3, Hgb 11.0 L, Hct 34.6 L, Plt Count 276 02/19/18 12:20: Sodium 127 L, Potassium 5.9 H*, BUN 100 H, Creatinine 3.14 H, Glucose 834 H*, Magnesium 1.7 L, Total Bilirubin 0.4, AST 12 L, ALT 18, Alkaline Phosphatase 217 H Imagings Data: EXAM DESCRIPTION: RADChest Single View02/19/2018 1:29 pm CLINICAL HISTORY: Hypertension COMPARISON: January 15, 2018 FINDINGS: Mild bilateral interstitial lung opacities probably are mostly if not all chronic. The heart is mildly enlarged EXAM DESCRIPTION: RAD - Abdomen 1 View (KUB) - 02/19/2018 6:06 pm CLINICAL HISTORY: Abdomen pain. FINDINGS: The bowel gas pattern is unremarkable. Small calcifications pelvis likely represents phlebolith Conclusions/Impression: A/ MITCH likely hypovolemia. CKD IV with proteinuria. DM II with CKD. HHS. Hypocalcemia. Hypomagnesemia. Hyperkalemia. Anemia in chronic illness. HTN complicated by hypotension. Diastolic CHF, chronic. P/ Continue current POC and Medications. Increase insulin as tolerated to improve BG control Agree with Abx. No NSAIDs. AM labs. Daily weight.
[2018-02-24 00:43] LABS: HBsAG Nonreactive (Nonreactive)
== END 2018-02-22 17:25 | DRG 638 ==
LOC: ER 11:26 → ERHOLD 14:30 → 3RD-ICU 15:21 → 4TH 02-20 14:40
PROVIDERS: ADMIT Family Medicine; ATTEND Family Medicine
DX: E11.01 Type 2 diabetes mellitus with hyperosmolarity with coma (principal); N39.0 Urinary tract infection, site not specified; I13.0 Hypertensive heart and chronic kidney disease with heart failure and stage 1 through stage 4 chronic kidney disease, or unspecified chronic kidney disease; N18.4 Chronic kidney disease, stage 4 (severe); I50.32 Chronic diastolic (congestive) heart failure; N17.9 Acute kidney failure, unspecified; E11.65 Type 2 diabetes mellitus with hyperglycemia; B96.20 Unspecified Escherichia coli [E. coli] as the cause of diseases classified elsewhere; E11.22 Type 2 diabetes mellitus with diabetic chronic kidney disease; I48.2 Chronic atrial fibrillation; Z79.01 Long term (current) use of anticoagulants; I25.10 Atherosclerotic heart disease of native coronary artery without angina pectoris; I77.89 Other specified disorders of arteries and arterioles; K21.9 Gastro-esophageal reflux disease without esophagitis; E78.5 Hyperlipidemia, unspecified; Z85.3 Personal history of malignant neoplasm of breast; E83.52 Hypercalcemia; E83.42 Hypomagnesemia; E87.5 Hyperkalemia; F41.8 Other specified anxiety disorders; R73.9 Hyperglycemia, unspecified; E11.00 Type 2 diabetes mellitus with hyperosmolarity without nonketotic hyperglycemic-hyperosmolar coma (NKHHC)
CPT/HCPCS: 36415; 51702; 71045; 74018; 80048; 80053; 80076; 81003; 81015; 82040; 82947; 82962; 83735; 83880; 83930; 84100; 84484; 84550; 85025; 85610; 86704; 86706; 86803; 87077; 87086; 87088; 87186; 87340; 93005; 93306; 96361; 96374; 97116; 97163; 97530; 99285; J0610; J0696; J1650; J3475; J7030

== ENCOUNTER 2018-05-30 21:34 | Inpatient (IN) | payer OTHER ==
--- OUTSIDE RECORDS SUMMARY | 2018-05-30 21:37 | XMS REPORT ---
:1940 Author Organization eClinicalWorks Care Team Providers Name Role Phone Laura, [facility] Provider Role Unavailable Allergies, Adverse Reactions, [...] End Status Dosage System Date Date Citalopram [facility] 98494665596 20 MG Orally Active 1 tablet Hydrobromide Once a day Coumadin ND 23783740365 2 MG Orally Active 1 tablet Once a day Lipitor ND 34767894477 40 MG Active 1 TAB(S) ONCE A DAY ORALLY Meclizine HCl ND 56794237991 25 MG Orally Active 1 tablet Three times a day Ferrous Sulfate ND 48676310931 325 (65 Fe) MG May Active 1 tablet Orally Once a 2017 day Tresiba FlexTouch ND 40210655619 200 UNIT/ML Active not Subcutaneous defined Chlorthalidone ND 67316175977 25 MG Orally Active 1 tablet Once a day in the morning with food FreeStyle Lite [facility] 96019609822 0 Active CHECK Test BLOOD SUGAR TWICE DAILY Flonase Allergy [facility] 48021199776 50 MCG/ACT Active 1 spray in Relief Nasally Once a each day nostril Meclizine HCl [facility] 62649085424 25 Active CHEW AND SWALLOW 1 TABLET THREE TIMES DAILY Anastrozole [facility] 49777182831 1 MG Orally Active 1 tablet Once a day Protonix [facility] 72331759555 40 MG Active 1 TAB(S) ONCE A DAY ORALLY Losartan [facility] 87714243090 100 MG Orally Active 1 tablet Potassium Once a day Topamax [facility] 42327424670 50 MG Orally Active 1 tablet Once a day Protonix [facility] 17998657014 40 MG Orally Active 1 tablet Once a day Tresiba FlexTouch [facility] 76342010375 200 UNIT/ML Active 40 UNITS DAILY Results No Known Results Summary Purpose eClinicalWorks Submission
--- OUTSIDE RECORDS SUMMARY | 2018-05-30 21:37 | XMS REPORT ---
:1940 Author Organization eClinicalWorks Care Team Providers Name Role Phone [facility] Provider Role Unavailable Allergies No Known [...] Start End Date Status [facility]os[facility] System [facility] 45964[facility]28 [facility] UNIT/ML Active 70 UNITS FlexTouch Subcutaneous DAILY Increase 2 untis after 3 day if BS are high Results No Known Results Summary Purpose eClinicalWorks Submission
--- OUTSIDE RECORDS SUMMARY | 2018-05-30 21:37 | XMS REPORT ---
[...] Status Dosage System Date Date FreeStyle Lite [facility] 18519262262 0 Active CHECK Test BLOOD SUGAR TWICE DAILY Lipitor [facility] 11710896521 40 MG Active 1 TAB(S) ONCE A DAY ORALLY Losartan [facility] 53892079856 100 MG Orally Active 1 tablet Potassium Once a day Meclizine HCl [facility] 25819661100 25 Active CHEW AND SWALLOW 1 TABLET THREE TIMES DAILY Flonase Allergy [facility] 00016323504 50 MCG/ACT Active 1 spray in Relief Nasally Once a each day nostril Ferrous Sulfate [facility] 02860658316 325 (65 Fe) MG Active 1 tablet Orally Once a day Tresiba FlexTouch [facility] 87832914072 200 UNIT/ML Active 70 UNITS Subcutaneous DAILY Increase 2 untis after 3 day if BS are high Citalopram [facility] 53822983845 20 MG Orally Active 1 tablet Hydrobromide Once a day Chlorthalidone [facility] 69582142190 25 MG Orally Active 1 tablet Once a day in the morning with food Tresiba FlexTouch [facility] 78794230750 200 UNIT/ML Active not Subcutaneous defined Anastrozole [facility] 56847854898 1 MG Orally Active 1 tablet Once a day Topamax [facility] 83421657471 50 MG Orally Active 1 tablet Once a day Protonix [facility] 35986053813 40 MG Active 1 TAB(S) ONCE A DAY ORALLY Lipitor [facility] 12566600899 40 MG Orally Active 1 tablet Once a day Coumadin [facility] 56358464152 2 MG Orally Active 1 tablet Once a day BD Pen Needle [facility] 24869706059 0 Active USE DAILY Short U/F Citalopram [facility] 71016066649 20 Active TAKE 1 Hydrobromide TABLET BY MOUTH EVERY DAY Protonix [facility] 69224911808 40 MG Orally Active 1 tablet Once a day Results No Known Results Summary Purpose eClinicalWorks Submission
--- OUTSIDE RECORDS SUMMARY | 2018-05-30 21:37 | XMS REPORT ---
:1940 [facility] Address [address] [place] [address] Care Team Providers Name Role Phone Unavailable Unavailable Unavailable Problems This patient has no known problems. Allergies, Adverse Reactions, Alerts This patient has no known allergies or adverse reactions. Medications This patient has no known medications.
--- OUTSIDE RECORDS SUMMARY | 2018-05-30 21:38 | XMS REPORT ---
:1940 Author Organization eClinicalWorks Care Team Providers Name Role Phone Valentín [facility] Provider Role Unavailable Allergies No Known Allergies [...] Start End Date Status Dosage System Date [facility] 02601361220 - Oct 11, Active as directed Lancets 2018 Results No Known Results Summary Purpose eClinicalSchmoozer Submission
--- OUTSIDE RECORDS SUMMARY | 2018-05-30 21:38 | XMS REPORT ---
[...] Status Dosage System Date Date Ferrous Sulfate [facility] 94995450928 325 (65 Fe) MG Active 1 tablet Orally Once a day FreeStyle Lite [facility] 29948932899 0 Active CHECK BLOOD Test SUGAR TWICE DAILY Citalopram [facility] 26219308164 20 Active TAKE 1 Hydrobromide TABLET BY MOUTH EVERY DAY Meclizine HCl [facility] 91973347140 25 Active CHEW AND SWALLOW 1 TABLET THREE TIMES DAILY Lipitor ND 23195163712 40 MG Orally Active 1 tablet Once a day Flonase Allergy ND 32580382094 50 MCG/ACT Active 1 spray in Relief Nasally Once a each day nostril Pantoprazole [facility] 58713039715 40 Active TAKE 1 Sodium TABLET BY MOUTH EVERY DAY FreeStyle [facility] 65752624384 - Oct 11, Active as directed Lancets 2018 HydrALAZINE HCl [facility] 42182540886 25 MG Orally Active 1 tablet Two times a day with food Lyrica [facility] 27147067780 50 MG Orally Oct 30, Active 1 capsule Twice a day 2017 BD Pen Needle [facility] 80046441365 0 Active USE DAILY Short U/F Anastrozole [facility] 60199282987 1 MG Orally Active 1 tablet Once a day Topamax [facility] 63894356372 50 MG Orally Active 1 tablet Once a day Coumadin [facility] 24073435904 2 MG Orally Active 1 tablet Once a day Tresiba [facility] 05366177055 200 UNIT/ML Active INJECT 70 FlexTouch UNITS UNDER THE SKIN EVERY DAY INCREASE 2 UNITS AFTER 3 DAYS IF BLOOD SUGAR IS HIGH Results No Known Results Summary Purpose eClinicalWorks Submission
--- OUTSIDE RECORDS SUMMARY | 2018-05-30 21:38 | XMS REPORT ---
[...] End Status Dosage System Date Date Anastrozole [facility] 24820357931 1 MG Orally Active 1 tablet Once a day Lipitor [facility] 03009641112 40 MG Orally Active 1 tablet Once a day Protonix [facility] 77091733886 40 MG Orally Active 1 tablet Once a day Topamax [facility] 42339962006 50 MG Orally Active 1 tablet Once a day Ferrous Sulfate [facility] 66487296164 325 (65 Fe) MG Active 1 tablet Orally Once a day Lipitor [facility] 00609167865 40 Active 1 TAB(S) ONCE A DAY ORALLY Tresiba FlexTouch [facility] 68960536315 200 UNIT/ML Active 70 UNITS Subcutaneous DAILY Increase 2 untis after 3 day if BS are high HydrALAZINE HCl [facility] 85986463565 25 MG Orally Active 1 tablet Two times a day with food Tresiba FlexTouch [facility] 81714898981 200 UNIT/ML Active not Subcutaneous defined Tresiba FlexTouch [facility] 65488906081 200 UNIT/ML Active INJECT 70 UNITS UNDER THE SKIN EVERY DAY INCREASE 2 UNITS AFTER 3 DAYS IF BLOOD SUGAR IS HIGH FreeStyle Lite [facility] 00401160294 0 Active CHECK Test BLOOD SUGAR TWICE DAILY Losartan [facility] 67681334137 100 MG Orally Inactive 1 tablet Potassium Once a day Pantoprazole [facility] 99339288191 40 Active TAKE 1 Sodium TABLET BY MOUTH EVERY DAY Citalopram [facility] 84492251564 20 Active TAKE 1 Hydrobromide TABLET BY MOUTH EVERY DAY Meclizine HCl [facility] 92938629510 25 Active CHEW AND SWALLOW 1 TABLET THREE TIMES DAILY Citalopram [facility] 32852282661 20 MG Orally Active 1 tablet Hydrobromide Once a day Coumadin [facility] 84648244263 2 MG Orally Active 1 tablet Once a day Lipitor [facility] 74253389678 40 MG Active 1 TAB(S) ONCE A DAY ORALLY Chlorthalidone [facility] 97600415115 25 MG Orally Inactive 1 tablet Once a day in the morning with food Flonase Allergy [facility] 83359688663 50 MCG/ACT Active 1 spray in Relief Nasally Once a each day nostril Protonix [facility] 53898238166 40 MG Active 1 TAB(S) ONCE A DAY ORALLY BD Pen Needle [facility] 96016573449 0 Active USE DAILY Short U/F Results No Known Results Summary Purpose eClinicalWorks Submission
--- OUTSIDE RECORDS SUMMARY | 2018-05-30 21:39 | XMS REPORT ---
:1940 Author Organization eClinicalWorks Care Team Providers Name Role Phone Noman Laura Provider Role Unavailable Allergies No Known Allergies Problems Problem Type Condition Code Onset Dates Condition Status Problem Chronic atrial fibrillation I48.2 Active Problem Allergic rhinitis, seasonal J30.2 Active Problem Depression with anxiety F41.8 Active Problem Claudication I73.9 Active Problem Benign essential HTN I10 Active Problem Bladder incontinence R32 Active Problem Obesity E66.9 Active Problem At risk for falling Z91.81 Active Problem Hyperlipidemia E78.5 Active Problem Chronic systolic congestive heart I50.22 Active failure Problem Hyperglycemic hyperosmolar E11.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 coma Problem Breast cancer C50.919 Active Problem Iron deficiency anemia D50.9 Active Problem Patient's noncompliance with Z91.11 Active dietary regimen Problem Anticoagulated Z79.01 Active Problem Chronic kidney disease, stage 3 N18.3 Active Problem Carotid artery occlusion I65.29 Active Problem Peripheral polyneuropathy G62.9 Active Problem Carcinoma of right female breast, C50.911 Active unspecified estrogen receptor status, unspecified site of breast Problem Peripheral vascular disease I73.9 Active Problem Insomnia G47.00 Active Problem Gout M10.9 Active Problem Back pain M54.9 Active Problem GERD (gastroesophageal reflux K21.9 Active disease) Problem Diabetes type 2, uncontrolled E11.65 Active Problem Edema R60.9 Active Problem Osteoporosis M81.0 Active Medications Medication Code Code Instructions Start End Status Dosage System Date Date Anastrozole ND 36177744450 1 MG Orally Active 1 tablet Once a day Protonix ND 81035499467 40 MG Orally Active 1 tablet Once a day Flonase Allergy ND 80856886231 50 MCG/ACT Active 1 spray in Relief Nasally Once a each day nostril Citalopram ND 55365808584 20 MG Orally Active 1 tablet Hydrobromide Once a day Furosemide ND 08070353680 20 MG Orally Active 1 tablet Once a day Lipitor [facility] 88839787357 40 Active 1 TAB(S) ONCE A DAY ORALLY Coumadin [facility] 54796592804 2 MG Orally Active 1 tablet Once a day BD Pen Needle [facility] 07183090163 0 Active USE DAILY Short U/F Lyrica [facility] 89290633851 50 MG Orally Active 1 capsule Twice a day Lasix [facility] 06116282923 40 MG Orally Active 1 tablet Twice a day PRN for edema Meclizine HCl [facility] 95907640895 25 Active TAKE 1 TABLET BY MOUTH THREE TIMES DAILY FreeStyle Lite [facility] 62111910821 0 Active CHECK BLOOD Test SUGAR TWICE DAILY Tresiba [facility] 68970424594 200 UNIT/ML Active INJECT 70 FlexTouch UNITS UNDER THE SKIN EVERY DAY INCREASE 2 UNITS AFTER 3 DAYS IF BLOOD SUGAR IS HIGH Lipitor [facility] 05431322069 40 MG Orally Active 1 tablet Once a day Tresiba [facility] 94059757707 200 UNIT/ML Active not defined FlexTouch Subcutaneous Pantoprazole [facility] 83996344616 40 Active TAKE 1 Sodium TABLET BY MOUTH EVERY DAY HydrALAZINE HCl [facility] 50157921268 25 Orally Two Active 1 tablet times a day with food Ferrous Sulfate [facility] 14979027679 325 (65 Fe) MG Active 1 tablet Orally Once a day Topamax [facility] 92188168239 50 MG Orally Active 1 tablet Once a day FreeStyle [facility] 36786722203 - Oct 11, Active as directed Lancets 2018 Results No Known Results Summary Purpose eClinicalWorks Submission
--- OUTSIDE RECORDS SUMMARY | 2018-05-30 21:39 | XMS REPORT ---
:1940 Author Organization eClinicalWorks Care Team Providers Name Role Phone Valentín Noman Provider Role Unavailable Allergies, Adverse Reactions, Alerts Substance Reaction Event Type Levaquin Info Not Available Drug Allergy Problems Problem Type Condition Code Onset Dates Condition Status Assessment Carcinoma of right female breast, C50.911 Active unspecified estrogen receptor status, unspecified site of breast Assessment GERD (gastroesophageal reflux K21.9 Active disease) Assessment Benign essential HTN I10 Active Assessment Hyperlipidemia E78.5 Active Assessment Diabetes type 2, uncontrolled E11.65 Active Assessment Chronic systolic congestive heart I50.22 Active failure Assessment Hyperglycemic hyperosmolar E11.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 coma Assessment Patient's noncompliance with Z91.11 Active dietary regimen Problem Chronic atrial fibrillation I48.2 Active Problem [...] Problem Iron deficiency anemia D50.9 Active Assessment At risk for falling Z91.81 Active Problem Patient's noncompliance with Z91.11 Active dietary regimen Problem Anticoagulated Z79.01 Active Assessment Leg weakness, bilateral R29.898 Active Problem Chronic kidney disease, stage 3 N18.3 Active Assessment Peripheral vascular disease I73.9 Active Problem Carotid artery occlusion I65.29 Active Assessment Peripheral polyneuropathy G62.9 Active Problem Peripheral polyneuropathy G62.9 Active Assessment Patient's other noncompliance with Z91.14 Active medication regimen Problem Carcinoma of right female breast, C50.911 Active unspecified estrogen receptor status, unspecified site of breast Assessment Anticoagulated Z79.01 Active Problem Peripheral vascular disease I73.9 Active Assessment Chronic atrial fibrillation I48.2 Active Problem Insomnia G47.00 Active Assessment Chronic kidney disease, stage 3 N18.3 Active Problem Gout M10.9 Active Assessment Carotid artery occlusion I65.29 Active Problem Back pain M54.9 Active Assessment Osteoporosis M81.0 Active Problem GERD (gastroesophageal reflux K21.9 Active disease) Assessment Depression with anxiety F41.8 Active Problem Diabetes type 2, uncontrolled E11.65 Active Problem Edema R60.9 Active Problem Osteoporosis M81.0 Active Medications Medication Code Code Instructions Start End Status Dosage System Date Date HydrALAZINE HCl [facility] 34641061046 25 Orally Two Active 1 tablet times a day with food Flonase Allergy [facility] 47835239598 50 MCG/ACT Active 1 spray in Relief Nasally Once a each day nostril Topamax [facility] 36584797267 50 MG Orally Active 1 tablet Once a day Tresiba [facility] 19816105989 200 UNIT/ML Active not defined FlexTouch Subcutaneous FreeStyle [facility] 89615373359 - Oct 11, Active as directed Lancets [address] [facility] 02937844883 1 MG Orally Active 1 tablet Once a day BD Pen Needle [facility] 88564893055 0 Active USE DAILY Short U/F Lyrica [facility] 83938067571 50 MG Orally Active 1 capsule Twice a day Meclizine HCl [facility] 19538256783 25 Active TAKE 1 TABLET BY MOUTH THREE TIMES DAILY Coumadin [facility] 27448674745 2 MG Orally Active 1 tablet Once a day Tresiba [facility] 83514965268 200 UNIT/ML Active INJECT 70 FlexTouch UNITS UNDER THE SKIN EVERY DAY INCREASE 2 UNITS AFTER 3 DAYS IF BLOOD SUGAR IS HIGH FreeStyle Lite [facility] 80998997256 0 Active CHECK BLOOD Test SUGAR TWICE DAILY Protonix [facility] 18536703462 40 MG Orally Active 1 tablet Once a day Citalopram [facility] 89776968586 20 MG Orally Active 1 tablet Hydrobromide Once a day Lipitor [facility] 23883970828 40 Active 1 TAB(S) ONCE A DAY ORALLY Lipitor [facility] 34560891947 40 MG Orally Active 1 tablet Once a day Lasix [facility] 93837695111 40 MG Orally Active 1 tablet Twice a day PRN for edema Ferrous Sulfate [facility] 33515496870 325 (65 Fe) MG Active 1 tablet Orally Once a day Pantoprazole [facility] 40552077674 40 Active TAKE 1 Sodium TABLET BY MOUTH EVERY DAY Results No Known Results Summary Purpose eClinicalWorks Submission
--- OUTSIDE RECORDS SUMMARY | 2018-05-30 21:39 | XMS REPORT ---
[...] R60.9 Active Problem Osteoporosis M81.0 Active Medications No Known Medications Results No Known Results Summary Purpose eClinicalWorks Submission
--- OUTSIDE RECORDS SUMMARY | 2018-05-30 21:39 | XMS REPORT ---
:1940 Author Organization eClinicalWorks Care Team Providers Name Role Phone Noman Laura Provider Role Unavailable Allergies No Known Allergies Problems Problem Type Condition Code Onset Dates Condition Status Problem Edema R60.9 Active Problem GERD (gastroesophageal reflux K21.9 Active disease) Problem Osteoporosis M81.0 Active Problem Carcinoma of right female breast, C50.911 Active unspecified estrogen receptor status, unspecified site of breast Problem Chronic atrial fibrillation I48.2 Active Problem Hyperlipidemia E78.5 Active Problem Chronic kidney disease, stage 3 N18.3 Active Problem Carotid artery occlusion I65.29 Active Problem Peripheral polyneuropathy G62.9 Active Problem Claudication I73.9 Active Problem Diabetes type 2, uncontrolled E11.65 Active Problem Obesity E66.9 Active Problem Benign essential HTN I10 Active Problem Bladder incontinence R32 Active Problem Anticoagulated Z79.01 Active Problem Allergic rhinitis, seasonal J30.2 Active Problem Depression with anxiety F41.8 Active Problem Gout M10.9 Active Problem Back pain M54.9 Active Problem Iron deficiency anemia D50.9 Active Problem Peripheral vascular disease I73.9 Active Problem At risk for falling Z91.81 Active Problem Breast cancer C50.919 Active Problem Insomnia G47.00 Active Medications No Known Medications Results No Known Results Summary Purpose eClinicalWorks Submission
--- OUTSIDE RECORDS SUMMARY | 2018-05-30 21:39 | XMS REPORT ---
:1940 Author Organization eClinicalWorks Care Team Providers Name Role Phone Noman Laura Provider Role Unavailable Allergies, Adverse Reactions, Alerts [...] Assessment Benign essential HTN I10 Active Assessment Diabetes type 2, uncontrolled E11.65 Active Problem Peripheral vascular disease I73.9 Active Problem Insomnia G47.00 Active Problem At risk for falling Z91.81 Active Problem Edema R60.9 Active Problem GERD (gastroesophageal reflux K21.9 Active disease) Problem Osteoporosis M81.0 Active Problem Carcinoma of right female breast, C50.911 Active unspecified estrogen receptor status, unspecified site of breast Problem Hyperlipidemia E78.5 Active Problem Chronic atrial fibrillation I48.2 Active Problem Chronic kidney disease, stage 3 N18.3 Active Assessment Refused influenza vaccine Z28.21 Active Problem Peripheral polyneuropathy G62.9 Active Problem Carotid artery occlusion I65.29 Active Problem Claudication I73.9 Active Problem Diabetes type 2, uncontrolled E11.65 Active Problem Obesity E66.9 Active Problem Benign essential HTN I10 Active Assessment Osteoporosis M81.0 Active Problem Bladder incontinence R32 Active Assessment Depression with anxiety F41.8 Active Problem Anticoagulated Z79.01 Active Assessment Leg weakness, bilateral R29.898 Active Problem Allergic rhinitis, seasonal J30.2 Active Assessment At risk for falling Z91.81 Active Problem Depression with anxiety F41.8 Active Assessment Peripheral polyneuropathy G62.9 Active Problem Gout M10.9 Active Assessment Peripheral vascular disease I73.9 Active Problem Back pain M54.9 Active Problem Iron deficiency anemia D50.9 Active Problem Breast cancer C50.919 Active Medications Medication Code Code Instructions Start End Status Dosage System Date Date Pantoprazole [facility] 08647646450 40 Active TAKE 1 Sodium TABLET BY MOUTH EVERY DAY Lipitor [facility] 56645648030 40 MG Orally Active 1 tablet Once a day Citalopram [facility] 37580825247 20 Active TAKE 1 Hydrobromide TABLET BY MOUTH EVERY DAY Lasix [facility] 97745398355 40 MG Orally Feb 13, Active 1 tablet Twice a day PRN 2019 for edema Losartan [facility] 85403619926 100 MG Orally Inactive 1 tablet Potassium Once a day Flonase Allergy [facility] 12825605393 50 MCG/ACT Active 1 spray in Relief Nasally Once a each day nostril Citalopram [facility] 23720536762 20 MG Orally Active 1 tablet Hydrobromide Once a day Lipitor [facility] 84657885699 40 Active 1 TAB(S) ONCE A DAY ORALLY Anastrozole [facility] 34048634506 1 MG Orally Feb 08, Active 1 tablet Once a day 2019 FreeStyle Lite [facility] 61763654169 0 Active CHECK Test BLOOD SUGAR TWICE DAILY Protonix [facility] 75207988147 40 MG Orally Active 1 tablet Once a day BD Pen Needle [facility] 72736283846 0 Active USE DAILY Short U/F Tresiba [facility] 55272243237 200 UNIT/ML Active INJECT 70 FlexTouch UNITS UNDER THE SKIN EVERY DAY INCREASE 2 UNITS AFTER 3 DAYS IF BLOOD SUGAR IS HIGH Coumadin [facility] 95575964934 2 MG Orally Active 1 tablet Once a day Ferrous Sulfate [facility] 29900146263 325 (65 Fe) MG Active 1 tablet Orally Once a day Meclizine HCl [facility] 86541598548 25 Active TAKE 1 TABLET BY MOUTH THREE TIMES DAILY HydrALAZINE HCl [facility] 84134813754 25 Orally Two Active 1 tablet times a day with food Topamax [facility] 48835836838 50 MG Orally Active 1 tablet Once a day FreeStyle [facility] 35157697164 - Oct 11, Active as Lancets 2018 directed Lyrica [facility] 94880560929 50 MG Orally Active 1 capsule Twice a day Lyrica [facility] 39798294902 50 Active TAKE 1 CAPSULE BY MOUTH TWICE DAILY HydrALAZINE HCl [facility] 20498284040 25 Orally Two Active 1 tablet times a day with food Tresiba [facility] 00219551587 200 UNIT/ML Active not FlexTouch Subcutaneous defined Results No Known Results Summary Purpose eClinicalWorks Submission
--- OUTSIDE RECORDS SUMMARY | 2018-05-30 21:39 | XMS REPORT ---
:1940 Author Organization e[employer] Care Team Providers Name Role Phone Valentín Noman Provider Role Unavailable Allergies, Adverse Reactions, Alerts Substance Reaction Event Type Levaquin Info Not Available Drug Allergy Problems Problem Type Condition Code Onset Dates Condition Status Assessment GERD (gastroesophageal reflux K21.9 Active disease) Assessment Chronic atrial fibrillation I48.2 Active Assessment Hyperlipidemia E78.5 Active Assessment Carcinoma of right female breast, C50.911 Active unspecified estrogen receptor status, unspecified site of breast Assessment Benign essential HTN I10 Active Assessment Diabetes type 2, uncontrolled E11.65 Active Assessment Chronic systolic congestive heart I50.22 Active failure Problem Chronic atrial fibrillation I48.2 Active Problem [...] Problem Iron deficiency anemia D50.9 Active Assessment Leg weakness, bilateral R29.898 Active Problem Patient's noncompliance with Z91.11 Active dietary regimen Problem Anticoagulated Z79.01 Active Assessment Peripheral vascular disease I73.9 Active Problem Chronic kidney disease, stage 3 N18.3 Active Assessment Peripheral polyneuropathy G62.9 Active Problem Carotid artery occlusion I65.29 Active Assessment Patient's other noncompliance with Z91.14 Active medication regimen Problem Peripheral polyneuropathy G62.9 Active Assessment Patient's noncompliance with Z91.11 Active dietary regimen Problem Carcinoma of right female breast, C50.911 Active unspecified estrogen receptor status, unspecified site of breast Assessment Carotid artery occlusion I65.29 Active Problem Peripheral vascular disease I73.9 Active Assessment Anticoagulated Z79.01 Active Problem Insomnia G47.00 Active Assessment Depression with anxiety F41.8 Active Problem Gout M10.9 Active Assessment Chronic kidney disease, stage 3 N18.3 Active Problem Back pain M54.9 Active Assessment At risk for falling Z91.81 Active Problem GERD (gastroesophageal reflux K21.9 Active disease) Assessment Osteoporosis M81.0 Active Problem Diabetes type 2, uncontrolled E11.65 Active Problem Edema R60.9 Active Problem Osteoporosis M81.0 Active Medications Medication Code Code Instructions Start End Status Dosage System Date Date Tresiba [facility] 49242045675 200 UNIT/ML Active not defined FlexTouch Subcutaneous Coumadin [facility] 37860186709 2 MG Orally Active 1 tablet Once a day Ferrous Sulfate [facility] 22217182966 325 (65 Fe) MG Active 1 tablet Orally Once a day Protonix [facility] 45240806719 40 MG Orally Active 1 tablet Once a day BD Pen Needle [facility] 62010520846 0 Active USE DAILY Short U/F Lasix [facility] 99404081489 40 MG Orally Active 1 tablet Twice a day PRN for edema Lipitor [facility] 51901917630 40 MG Orally Active 1 tablet Once a day Lipitor [facility] 27084896926 40 Active 1 TAB(S) ONCE A DAY ORALLY HydrALAZINE HCl [facility] 83277761104 25 Orally Two Active 1 tablet times a day with food Pantoprazole [facility] 69149151029 40 Active TAKE 1 Sodium TABLET BY MOUTH EVERY DAY Januvia [facility] 15238567965 100 MG Orally April Active 1 tablet Once a day 2018 Flonase Allergy [facility] 20058113083 50 MCG/ACT Active 1 spray in Relief Nasally Once a each day nostril FreeStyle Lite [facility] 99830358506 0 Active CHECK BLOOD Test SUGAR TWICE DAILY Anastrozole ND 83113337146 1 MG Orally Active 1 tablet Once a day Lyrica [facility] 15683126451 75 MG Orally Active 1 capsule Twice a day FreeStyle [facility] 57901512491 - Oct 11, Active as directed Lancets 2018 Meclizine HCl [facility] 90124632284 25 Active TAKE 1 TABLET BY MOUTH THREE TIMES DAILY Citalopram [facility] 57727327935 20 MG Orally Active 1 tablet Hydrobromide Once a day Topamax [facility] 04297048175 50 MG Orally Active 1 tablet Once a day Tresiba [facility] 15637152716 200 UNIT/ML Active INJECT 70 FlexTouch UNITS UNDER THE SKIN EVERY DAY INCREASE 2 UNITS AFTER 3 DAYS IF BLOOD SUGAR IS HIGH Results No Known Results Summary Purpose eClinicalWorks Submission
[2018-05-30] MEDS ORDERED: IBUPROFEN 400 MG TAB ONE (22:41)
[2018-05-30] MEDS ORDERED: ACETAMINOPHEN 500 MG TAB ONE (22:42)
[2018-05-30 22:58] LABS: Absolute Lymphocytes (CBC) 2.6 K/uL (0.7-4.9); Absolute Monocytes 0.4 K/uL (0.1-1.3); Absolute Neutrophil 3.7 K/uL (1.8-8.0); Basophils % 0.7 % (0-1.3); Eosinophils % 4.8 % (0-4.4); Hematocrit 30.6 % (36.0-45.0); Lymphocytes % 36.1 % (15.3-44.8); MPV 9.7 fL (7.6-11.3); RBC Red Blood Cell Count 3.26 M/uL (3.86-4.86)
[2018-05-30] MEDS ORDERED: INSULIN -REGULAR HUMAN 50 UNIT/0.5 ML ML ONE (23:00)
[2018-05-30 23:18] LABS: ALT/SGPT 22 U/L (12-78); AST/SGOT 15 U/L (15-37); Albumin 2.8 g/dL (3.4-5.0); Alkaline Phosphatase 165 U/L (45-117); BUN Blood Urea Nitrogen 105 mg/dL (7-18); Bicarbonate 20 mmol/L (21-32); Bilirubin Direct < 0.1 mg/dL (0-0.2); Bilirubin Total 0.3 mg/dL (0.2-1.0); Glucose Level 326 mg/dL (74-106); Magnesium 1.6 mg/dL (1.8-2.4); NT PRO-BNP 1064 pg/mL (<450); Potassium 4.7 mmol/L (3.5-5.1); Protein, Total 6.6 g/dL (6.4-8.2); Sodium Level 143 mmol/L (136-145); Troponin (Emerg Dept Use Only) < 0.02 ng/mL (0.0-0.045)
[2018-05-30 23:19] LABS: Protime INR 4.42
[2018-05-30] MEDS ORDERED: Magnesium Sulfate 2gm IVPB 2 G/50 ML BAG IV ONE (23:42)
[2018-05-31 01:02] LABS: Urine Blood NEGATIVE (NEG); Urine Glucose 1+ (NEG); Urine Protein TRACE (NEG); Urine Specific Gravity <1.005 (1.005-1.030)
[2018-05-31 01:07] LABS: Urine Bacteria >50 /HPF (<20); Urine Culture Reflex Order REFLEXED; Urine RBC <5 /HPF (NONE SEEN); Urine Yeast PRESENT (NONE SEEN)
[2018-05-31] MEDS ORDERED: CEFTRIAXONE/SWI 1gm 1 GM/10 ML SYR ONE (01:25)
--- NOTE | 2018-05-31 01:33 | EDPHYS ---
Physician Documentation [facility] Name: Sarah Garcia Age: 77 yrs Sex: Female : 1940 Arrival Date: 05/30/2018 Time: 21:40 Bed 24 Private MD: ED Physician Cristóbal Waldron HPI: 05/30 22:00 This 77 yrs old Female presents to ER via EMS with complaints of general cp weakness. 22:00 weakness. cp 22:00 Severity of symptoms: in the emergency department the symptoms are unchanged despite cp home interventions. 22:00 Onset: The symptoms/episode began/occurred 2 day(s) ago, and became worse today. cp Historical: - Allergies: 21:49 QUINOLONES; rv - Home Meds: 21:49 alprazolam 0.25 mg Oral tab PRN [Active]; Altace 2.5 mg Oral cap once daily [Active]; rv Ambien Oral [Active]; anastrozole 1 mg Oral tab 1 tab once daily [Active]; aspirin 81 mg Oral chew 1 tab once daily [Active]; atorvastatin 40 mg Oral tab 1 tab once daily [Active]; chlorthalidone 25 mg Oral tab 1 tab once daily [Active]; citalopram 20 mg tab 1 tab once daily [Active]; ferrous sulfate 325 mg (65 mg iron) Oral tab [Active]; meclizine 25 mg Oral tab [Active]; metoprolol succinate 100 mg Oral Tb24 0.5 tab once daily [Active]; pantoprazole 40 mg Oral TbEC 1 tab once daily [Active]; sitagliptin 30mg Oral 1 tab once daily [Active]; Tresiba FlexTouch U-200 200 unit/mL (3 mL) subcutaneous inpn 58 unit nightly [Active]; Vitamin D3 Oral [Active]; - PMHx: 21:49 Atrial Fib; Cancer, Breast; Diabetes - IDDM; GERD; High Cholesterol; Hypertension; rv Myocardial infarction; stage 4 kidney disease; - PSHx: 21:49 Unable to obtain; rv - Immunization history:: Adult Immunizations up to date. - Social history:: Smoking status: Patient/guardian denies using tobacco. - Ebola Screening: : No symptoms or risks identified at this time. ROS: 22:05 Cardiovascular: Negative for chest pain, edema, palpitations. cp 22:05 Eyes: Negative for injury, pain, redness, and discharge. cp 22:05 Constitutional: Negative for body aches, chills, fever, poor PO intake. 22:05 ENT: Negative for drainage from ear(s), ear pain, sore throat, difficulty swallowing, difficulty handling secretions. 22:05 Respiratory: Negative for cough, shortness of breath, wheezing. 22:05 Abdomen/GI: Negative for abdominal pain, vomiting, diarrhea, constipation, black/tarry stool, rectal bleeding. 22:05 Skin: Negative for cellulitis, rash. 22:05 Neuro: Positive for dizziness, weakness, unsteady gait, Negative for altered mental status, headache, syncope. 22:05 All other systems are negative. Exam: 22:15 Constitutional: The patient appears in no acute distress, alert, awake, cp non-diaphoretic, non-toxic, well developed, well nourished. 22:15 Head/Face: Normocephalic, atraumatic. cp 22:15 Eyes: Periorbital structures: appear normal, Pupils: equal, round, and reactive to light and accomodation, Extraocular movements: intact throughout, Conjunctiva: normal, no exudate, no injection, Sclera: no appreciated abnormality, Lids and lashes: appear normal, bilaterally. 22:15 ENT: External ear(s): are unremarkable, Ear canal(s): are normal, clear, TM's: bulging, is not appreciated, bilaterally, erythema, is not appreciated, bilaterally, Nose: is normal, Mouth: Lips: moist, Oral mucosa: pink and intact, moist, Posterior pharynx: is normal, airway is patent, no erythema, no exudate. 22:15 Neck: ROM/movement: is normal, is supple, without pain, no range of motions limitations, no meningismus, no nuchal rigidity. 22:15 Chest/axilla: Inspection: normal, Palpation: is normal, no crepitus, no tenderness. 22:15 Cardiovascular: Rate: normal, Rhythm: regular, Edema: is not appreciated, JVD: is not appreciated. 22:15 Respiratory: the patient does not display signs of respiratory distress, Respirations: normal, no use of accessory muscles, no retractions, no splinting, no tachypnea, labored breathing, is not present, Breath sounds: are clear throughout, no stridor, no wheezing. 22:15 Abdomen/GI: Inspection: abdomen appears normal, Bowel sounds: active, all quadrants, Palpation: abdomen is soft and non-tender, in all quadrants. 22:15 Back: pain, is absent, ROM is normal. 22:15 Skin: cellulitis, is not appreciated, no rash present. 22:15 Neuro: Orientation: to person, place \T\ time. Mentation: is normal, Cerebellar function: Romberg testing is negative, normal finger to nose testing, Motor: moves all fours, general weakness w/o focal deficits, Sensation: no obvious gross deficits, Gait: unable to assess, the patient refuses to ambulate. Vital Signs: 21:56 BP 138 / 36 LA Supine; Pulse 70; Resp 18 S; Temp 98.7; Pulse Ox 97% on R/A; Weight rv 81.65 kg; Height 5 ft. 4 in. (162.56 cm) (M); 23:48 BP 139 / 43 LA Supine; Pulse 71; Resp 17 S; Pulse Ox 97% on R/A; rv 05/31 00:30 BP 109 / 36; Pulse 64; Resp 16; Pulse Ox 97% ; rv 01:00 BP 115 / 47 LA Supine; Pulse 63; Resp 16 S; Pulse Ox 97% on R/A; rv 02:40 BP 118 / 55 LA Supine; Pulse 71; Resp 17 S; Pulse Ox 98% on R/A; rv 05/30 21:56 Body Mass Index 30.90 (81.65 kg, 162.56 cm) rv MDM: 05/30 21:51 Patient medically screened. cp 05/31 00:00 Differential Diagnosis altered mental status, sepsis, UTI, dehydration, acute on cp chronic renal failure. 01:27 Data reviewed: vital signs, nurses notes, lab test result(s), EKG, radiologic studies, cp CT scan, plain films. 01:27 Test interpretation: by ED physician or midlevel provider: ECG. Response to treatment: cp the patient's symptoms have mildly improved after treatment, Patient reports she is unable to get up and ambulate due to continued general weakness and dizziness, and as a result, I will admit patient. 01:29 Physician consultation: Daniel Hoffman MD was called at 01:30, was contacted at 01:30, nyla regarding admission, to the medical/surgical unit. patient's condition. 05/30 21:44 Order name: Glucose, Ancillary Testing; Complete Time: 22:10 EDMS 05/30 22:26 Order name: Basic Metabolic Panel 05/30 22:26 Order name: CBC with Diff; Complete Time: 23:20 cp 05/30 23:21 Interpretation: Normal except: RBC 3.26; HGB 10.0; HCT 30.6; RDW 16.4; EOSINOPHIL % 4.8. 05/30 22:26 Order name: LFT's; Complete Time: 23:20 05/31 00:55 Interpretation: Normal except: ALK 165; ALB 2.8; GLOB 3.8; A/G 0.7. 05/30 22:26 Order name: Magnesium; Complete Time: 23:20 05/31 00:55 Interpretation: Abnormal: MG 1.6. 05/30 22:26 Order name: NT PRO-BNP; Complete Time: 23:20 05/30 22:26 Order name: PT-INR; Complete Time: 23:20 05/30 22:26 Order name: Troponin (emerg Dept Use Only); Complete Time: 23:20 05/30 22:26 Order name: Urine Microscopic Only; Complete Time: 01:10 05/30 22:26 Order name: Basic Metabolic Panel; Complete Time: 23:20 EDMS 05/31 01:25 Interpretation: Normal except: CL 111; CO2 20; GLUC 326; BUN 105; CRE 3.05; GFR 15; CA cp 7.6. 05/30 23:22 Order name: CT Head Brain wo Cont 05/31 00:16 Order name: Urine Dipstick--Ancillary (enter results); Complete Time: 01:10 05/31 00:40 Order name: Glucose, Ancillary Testing; Complete Time: 00:54 EDMS 05/31 00:55 Interpretation: GLUC,ANCIL 198; Reviewed. 05/31 01:08 Order name: Urine Culture EDID 05/30 22:26 Order name: EKG; Complete Time: 22:27 05/30 22:26 Order name: Cardiac monitoring; Complete Time: 23:45 cp 05/30 22:26 Order name: EKG - Nurse/Tech; Complete Time: 23:45 05/30 22:26 Order name: IV Saline Lock; Complete Time: 23:45 cp 05/30 22:26 Order name: Labs collected and sent; Complete Time: 23:46 cp 05/31 02:01 Order name: CONS Pharmacy Consult EDID 05/31 02:01 Order name: CONS Physician Consult EDID 05/31 02:01 Order name: Renal EDID 05/30 22:26 Order name: O2 Per Protocol; Complete Time: 23:47 cp 05/30 22:26 Order name: O2 Sat Monitoring; Complete Time: 23:47 cp 05/30 22:26 Order name: Urine Dipstick-Ancillary (obtain specimen); Complete Time: 23:45 cp 05/30 22:26 Order name: Cath; Complete Time: 23:45 cp Administered Medications: 05/30 22:30 Drug: NS 0.9% 250 ml Route: IV; Rate: bolus; Site: left wrist; rv 23:44 Follow up: IV Status: Completed infusion; IV Intake: 250ml rv 22:30 Drug: Ibuprofen 800 mg Route: PO; rv 05/31 00:53 Follow up: Response: Pain is unchanged, physician notified rv 05/30 22:45 Drug: NS 0.9% 1000 ml Route: IV; Rate: 100 ml/hr; Site: left wrist; rv 05/31 16:42 Follow up: IV Status: Infusion continued upon admission rv 05/30 22:45 Drug: Tylenol 1000 mg Route: PO; rv 05/31 00:53 Follow up: Response: Pain is unchanged, physician notified rv 05/30 22:50 Drug: Insulin Regular Human 10 units {Co-Signature: cc3 (Brisa Jaramillo).} Route: IVP; rv Site: left wrist; 23:45 Follow up: Response: Blood sugar is lowered rv 23:34 Drug: Magnesium Sulfate 2 grams Route: IVPB; Infused Over: 1 hrs; Site: left wrist; rv 05/31 00:53 Follow up: IV Status: Completed infusion; IV Intake: 50ml rv 01:16 Drug: Rocephin - (cefTRIAXone) 1 grams Route: IVPB; Infused Over: 30 mins; Site: left rv wrist; Point of Care Testing: Blood Glucose: 05/30 23:23 Blood Glucose: 198 mg/dL; lt1 Ranges: Critical Glucose Levels:Adult <50 mg/dl or >400 mg/dl <40 mg/dl or >180 mg/dl Disposition: 05/31/18 01:32 Hospitalization ordered by Daniel Hoffman for Inpatient Admission. Preliminary diagnosis are Weakness, Unspecified kidney failure, Urinary tract infection, site not specified. - Bed requested for Telemetry/MedSurg (Inpatient). - Status is Inpatient Admission. rv - Condition is Stable. - Problem is new. - Symptoms have improved. UTI on Admission? No Addendum: 06/04/2018 10:56 Co-signature as Attending Physician, Cristóbal Waldron MD I agree with the assessment and c ron plan of care. Signatures: Dispatcher [employer] EDMS Gillian Doherty RN RN mw Anderson, Corey, MD MD cha Page, Corey, PA PA cp Tio Momin RN RN Brisa Jaramillo cc3 Corrections: (The following items were deleted from the chart) 05/31 01:25 00:55 Normal except: CL 111; CO2 20; GLUC 326; BUN 105; CRE 3.05; GFR 15. cp cp 02:15 01:32 Hospitalization Ordered by Daniel Hoffman MD for Inpatient Admission. Preliminary diagnosis is Weakness; Unspecified kidney failure; Urinary tract infection, site not specified. Bed requested for Telemetry/MedSurg (Inpatient). Status is Inpatient Admission. Condition is Stable. Problem is new. Symptoms have improved. UTI on Admission? No. cp 02:40 02:15 05/31/2018 01:32 Hospitalization Ordered by Daniel Hoffman MD for Inpatient rv Admission. Preliminary diagnosis is Weakness; Unspecified kidney failure; Urinary tract infection, site not specified. Bed requested for Telemetry/MedSurg (Inpatient). Status is Inpatient Admission. Condition is Stable. Problem is new. Symptoms have improved. UTI on Admission? No. mw 06/01 02:22 05/30 22:00 Onset: The symptoms/episode began/occurred gradually, cp cp
--- NOTE | 2018-05-31 01:33 | ER ---
Nurse's Notes [facility] Name: Sarah Garcia Age: 77 yrs Sex: Female : 1940 Arrival Date: 05/30/2018 Time: 21:40 Bed 24 Private MD: Diagnosis: Weakness;Unspecified kidney failure;Urinary tract infection, site not specified Presentation: 05/30 21:40 Presenting complaint: EMS states: 2 DAYS COMPLAINING OF WEAKNESS AND HIGH BLOOD rv PRESSURE. DOES NOT WANT TO AMBULATE BECAUSE OF FEAR FROM FALLING. COMPLAINING OF UNSTEADY GAIT. SHE GOT DIMINISHED BREATH SOUNDS ON THE LEFT SIDE. INITIAL BP IS 170/80 (MANUAL), THEN 126/53 IN THE AMBULANCE. PATIENT IS ALERT AND ORIENTED. Transition of care: patient was not received from another setting of care. Onset of symptoms was May 27, 2018 at 08:00. Risk Assessment: Do you want to hurt yourself or someone else? Patient reports no desire to harm self or others. Initial Sepsis Screen: Does the patient meet any 2 criteria? No. Patient's initial sepsis screen is negative. Does the patient have a suspected source of infection? No. Patient's initial sepsis screen is negative. 21:40 Method Of Arrival: EMS: [facility] rv 21:40 Acuity: CHRISS 3 rv 21:58 Care prior to arrival: None. rv Triage Assessment: 21:50 General: Appears in no apparent distress. comfortable, Behavior is calm, cooperative. rv Pain: Complains of pain in right leg and left leg. EENT: No deficits noted. Neuro: Level of Consciousness is awake, alert, obeys commands, Oriented to person, place, time, situation. Cardiovascular: Capillary refill < 3 seconds. Respiratory: Airway is patent. GI: No signs and/or symptoms were reported involving the gastrointestinal system. : No signs and/or symptoms were reported regarding the genitourinary system. Derm: Skin is intact. Musculoskeletal: No signs and/or symptoms reported regarding the musculoskeletal system. Historical: - Allergies: 21:49 QUINOLONES; rv - Home Meds: 21:49 alprazolam 0.25 mg Oral tab PRN [Active]; Altace 2.5 mg Oral cap once daily [Active]; rv Ambien Oral [Active]; anastrozole 1 mg Oral tab 1 tab once daily [Active]; aspirin 81 mg Oral chew 1 tab once daily [Active]; atorvastatin 40 mg Oral tab 1 tab once daily [Active]; chlorthalidone 25 mg Oral tab 1 tab once daily [Active]; citalopram 20 mg tab 1 tab once daily [Active]; ferrous sulfate 325 mg (65 mg iron) Oral tab [Active]; meclizine 25 mg Oral tab [Active]; metoprolol succinate 100 mg Oral Tb24 0.5 tab once daily [Active]; pantoprazole 40 mg Oral TbEC 1 tab once daily [Active]; sitagliptin 30mg Oral 1 tab once daily [Active]; Tresiba FlexTouch U-200 200 unit/mL (3 mL) subcutaneous inpn 58 unit nightly [Active]; Vitamin D3 Oral [Active]; - PMHx: 21:49 Atrial Fib; Cancer, Breast; Diabetes - IDDM; GERD; High Cholesterol; Hypertension; rv Myocardial infarction; stage 4 kidney disease; - PSHx: 21:49 Unable to obtain; rv - Immunization history:: Adult Immunizations up to date. - Social history:: Smoking status: Patient/guardian denies using tobacco. - Ebola Screening: : No symptoms or risks identified at this time. Screenin:58 Abuse screen: Denies threats or abuse. Denies injuries from another. Nutritional rv screening: No deficits noted. Tuberculosis screening: No symptoms or risk factors identified. Fall Risk None identified. Assessment: 23:48 Reassessment: Patient appears in no apparent distress at this time. Patient and/or rv family updated on plan of care and expected duration. Pain level reassessed. Patient is alert, oriented x 3, equal unlabored respirations, skin warm/dry/pink. 05/31 00:58 Reassessment: Patient appears in no apparent distress at this time. No changes from rv previously documented assessment. Patient and/or family updated on plan of care and expected duration. Pain level reassessed. Patient is alert, oriented x 3, equal unlabored respirations, skin warm/dry/pink. was not able to tolerate standing position. complained of dizziness on sitting position. Vital Signs: 05/30 21:56 BP 138 / 36 LA Supine; Pulse 70; Resp 18 S; Temp 98.7; Pulse Ox 97% on R/A; Weight rv 81.65 kg; Height 5 ft. 4 in. (162.56 cm) (M); 23:48 BP 139 / 43 LA Supine; Pulse 71; Resp 17 S; Pulse Ox 97% on R/A; rv 05/31 00:30 BP 109 / 36; Pulse 64; Resp 16; Pulse Ox 97% ; rv 01:00 BP 115 / 47 LA Supine; Pulse 63; Resp 16 S; Pulse Ox 97% on R/A; rv 02:40 BP 118 / 55 LA Supine; Pulse 71; Resp 17 S; Pulse Ox 98% on R/A; rv 05/30 21:56 Body Mass Index 30.90 (81.65 kg, 162.56 cm) rv ED Course: 05/30 21:40 Patient arrived in ED. rv 21:43 Triage completed. rv 21:51 Cristóbal Omalley PA is PHCP. cp 21:51 Cristóbal Waldron MD is Attending Physician. cp 21:58 Arm band placed on right wrist. rv 21:58 Patient has correct armband on for positive identification. Bed in low position. Call rv light in reach. Side rails up X 1. Adult w/ patient. Pulse ox on. NIBP on. 22:12 Tio Momin, MARANDA is Primary Nurse. rv 23:30 No provider procedures requiring assistance completed. Maintain EMS IV. Dressing rv intact. Good blood return noted. Site clean \T\ dry. Gauge \T\ site: g22 left wrist. Patient admitted, IV remains in place. 23:39 Radiology exam delayed due to Patient is currently with nursing staff having a kw1 procedure done. 23:44 CT Head Brain wo Cont Sent. rv 23:45 Basic Metabolic Panel Sent. rv 05/31 00:05 CT Head Brain wo Cont In Process Unspecified. EDMS 01:30 Daniel Hoffman MD is Hospitalizing Provider. cp Administered Medications: 05/30 22:30 Drug: NS 0.9% 250 ml Route: IV; Rate: bolus; Site: left wrist; rv 23:44 Follow up: IV Status: Completed infusion; IV Intake: 250ml rv 22:30 Drug: Ibuprofen 800 mg Route: PO; rv 05/31 00:53 Follow up: Response: Pain is unchanged, physician notified rv 05/30 22:45 Drug: NS 0.9% 1000 ml Route: IV; Rate: 100 ml/hr; Site: left wrist; rv 05/31 16:42 Follow up: IV Status: Infusion continued upon admission rv 05/30 22:45 Drug: Tylenol 1000 mg Route: PO; rv 05/31 00:53 Follow up: Response: Pain is unchanged, physician notified rv 05/30 22:50 Drug: Insulin Regular Human 10 units {Co-Signature: cc3 (Brisa Jaramillo).} Route: IVP; rv Site: left wrist; 23:45 Follow up: Response: Blood sugar is lowered rv 23:34 Drug: Magnesium Sulfate 2 grams Route: IVPB; Infused Over: 1 hrs; Site: left wrist; rv 05/31 00:53 Follow up: IV Status: Completed infusion; IV Intake: 50ml rv 01:16 Drug: Rocephin - (cefTRIAXone) 1 grams Route: IVPB; Infused Over: 30 mins; Site: left rv wrist; Point of Care Testing: Blood Glucose: 05/30 23:23 Blood Glucose: 198 mg/dL; lt1 Ranges: Intake: 23:44 IV: 250ml; Total: 250ml. rv 05/31 00:53 IV: 50ml; Total: 300ml. rv Outcome: 01:32 Decision to Hospitalize by Provider. cp 02:39 Admitted to Med/surg accompanied by nurse, via stretcher, room 230, with chart, Report rv called to albaro 02:39 Condition: good 02:39 Instructed on the need for admit. 02:40 Patient left the ED. rv Signatures: Dispatcher [employer] EDMS Cristóbal Omalley PA PA cp Julia Dejesus kw1 Tio Momin RN RN rv Lana Lopez lt1 Brisa Jaramillo cc3
[2018-05-31] MEDS ORDERED: ONDANSETRON 4 MG/2 ML VIAL IV PRN (01:58)
[2018-05-31] MEDS ORDERED: MORPHINE 2 MG/ML SYR IV PRN (01:58)
[2018-05-31] MEDS ORDERED: ACETAMINOPHEN 500 MG TAB PO PRN (01:58)
[2018-05-31] MEDS: NA CHLORIDE 0.9% 1,000 ML IV SCH ×2 (04:00→17:21)
[2018-05-31] MEDS ORDERED: MECLIZINE HCL 12.5 MG TAB PO PRN (05:43)
[2018-05-31] MEDS ORDERED: ALPRAZOLAM 0.25 MG TABLET PO PRN (05:43)
--- NOTE | 2018-05-31 08:14 | P.HP ---
Certification for Inpatient Patient admitted to: Inpatient With expected LOS: >2 Midnights Patient will require the following post-hospital care: None Practitioner: I am a practitioner with admitting privileges, knowledge of patient current condition, hospital course, and medical plan of care. Services: Services provided to patient in accordance with Admission requirements found in Title 42 Section 412.3 of the Code of Federal Regulations Patient History Date of Service: 05/31/18 Reason for admission: Altered mental status / toxic encephalopathy/ UTI/ coagulopathy History of Present Illness: Patient is a 77-year-old female who lives with her daughter, presents to the emergency room with altered mentation. Patient has not been behaving like herself but she was given IV antibiotics and IV hydration in the emergency room. Her urinalysis revealed a urinary tract infection. Patient also has significant worsening of her renal function over the last month. Patient has significant uremia along with his elevated creatinine. This is probably made the patient more up-to-date. Patient may have some toxic encephalopathy because of this. Patient will need admission to the hospital for further evaluation. Allergies Quinolones Allergy (Verified 09/25/17 01:08) Anaphylaxis Home Medications: ALPRAZolam [Xanax] 0.25 mg PO BID PRN 05/31/18 Anastrozole [Arimidex] 1 mg PO DAILY 05/31/18 Aspirin Chewable [Aspirin Chewable*] 81 mg PO DAILY 05/31/18 Atorvastatin Calcium [Lipitor] 40 mg PO BEDTIME 05/31/18 Chlorthalidone [Hygroton 25mg Tab] 25 mg PO DAILY 05/31/18 Citalopram [Celexa] 20 mg PO DAILY 05/31/18 Ferrous Sulfate [Feosol] 325 mg PO TID 05/31/18 Insulin Degludec [Tresiba Flextouch U-200] 40 unit SQ DAILY 05/31/18 Meclizine HCl [Antivert] 25 mg PO TID PRN 05/31/18 Metoprolol Succinate [Toprol Xl] 50 mg PO DAILY 05/31/18 Pantoprazole [Protonix Tab] 40 mg PO DAILY 05/31/18 Ramipril [Altace] 2.5 mg PO DAILY 05/31/18 Warfarin Sodium [Coumadin] 2 mg PO DAILY 05/31/18 - Past Medical/Surgical History Has patient received pneumonia vaccine in the past: No Diabetic: Yes -: Atrial fibrillation, Cardiology-Dr. Camarena -: Chronic anticoagulation-Coumadin -: HTN -: GERD -: Chronic renal disease, Baseline GFR-30, Nephrology -: PVD -: Gout -: Depression with Anxiety -: Diabetes mellitus type 2, insulin-dependent -: Coronary disease -: Carotid arterial disease -: Hyperlipidemia -: Appendectomy -: Tubal ligation -: Hysterectomy -: Heart Cath -: right breast lumpectomy with lymph node removal Psychosocial/ Personal History: [facility] has 10 children. - Family History Brother Medical History: Diabetes Mother Medical History: Heart disease, Hypertension, Diabetes Notes: arthritis - Social History Smoking Status: Never smoker Alcohol use: No CD- Drugs: No Caffeine use: Yes Review of Systems 10-point ROS is otherwise unremarkable Physical Examination - Vital Signs Temperature: 97.1 F Blood Pressure: 141/61 Pulse: 62 Respirations: 16 Pulse Ox (%): 96 - Physical Exam General: Alert, In no apparent distress, Oriented x1, Demented, Confused HEENT: Atraumatic, PERRLA, Mucous membr. moist/pink, EOMI, Sclerae nonicteric Neck: Supple, 2+ carotid pulse no bruit, No LAD, Without JVD or thyroid abnormality Respiratory: Other (coarse) Cardiovascular: Regular rate/rhythm, Normal S1 S2 Gastrointestinal: Normal bowel sounds, Soft and benign, Non-distended, W/out succussion splash, No tenderness Musculoskeletal: No tenderness, Clubbing, Tenderness, Warmth Integumentary: No rashes Neurological: Normal speech, Normal tone, Sensation intact, Cranial nerves 3-12 intact, Normal affect, Abnormal gait, Abnormal strength Lymphatics: No axilla or inguinal lymphadenopathy - Studies Laboratory Data (last 24 hrs) 05/30/18 22:41: PT 49.3 H, INR 4.42 H* 05/30/18 22:41: WBC 7.1, Hgb 10.0 L, Hct 30.6 L, Plt Count 208 05/30/18 22:41: Sodium 143, Potassium 4.7, BUN 105 H, Creatinine 3.05 H, Glucose 326 H, Magnesium 1.6 L D, Total Bilirubin 0.3, AST 15, ALT 22, Alkaline Phosphatase 165 H Assessment & Plan - Problems (Diagnosis) (1) ESRD (end stage renal disease) Current Visit: Yes Status: Acute (2) Acute kidney injury Onset Date: 08/23/15 Current Visit: No Status: Acute (3) Altered mental status Onset Date: 08/31/15 Current Visit: No Status: Acute (4) Chest pain Onset Date: 07/06/15 Current Visit: No Status: Acute (5) Chronic anticoagulation Onset Date: 04/17/16 Current Visit: No Status: Acute (6) Chronic renal insufficiency Onset Date: 04/05/15 Current Visit: No Status: Acute (7) Elevated troponin Onset Date: 10/26/15 Current Visit: No Status: Acute (8) Pneumonia Onset Date: 08/31/15 Current Visit: No Status: Acute (9) Syncope Onset Date: 04/09/15 Current Visit: No Status: Acute (10) Thrombocytopenia Current Visit: No Status: Acute (11) UTI (urinary tract infection) Onset Date: 07/06/15 Current Visit: No Status: Acute Qualifiers: (12) Warfarin-induced coagulopathy Onset Date: 01/10/18 Current Visit: No Status: Acute - Plan Plan: 1. IV antibiotics along with IV hydration 2. continue cardiac medications 3. follow up with Cardiology in 1-2 weeks 4. patient may need physical therapy evaluation depending on her mentation in the morning 5. monitor renal function closely 6. GI and DVT prophylaxis Discharge Plan: Home Plan to discharge in: 48 Hours - Advance Directives Does patient have a Living Will: Yes Does patient have a Durable POA for Healthcare: Yes - Code Status/Comfort Care Code Status Assessed: Yes Code Status: Full Code Critical Care: No Time Spent Managing PTS Care (In Minutes): 50
[2018-05-31] MEDS: INSULIN DEGLUDEC 40 UNIT SQ SCH (09:00)
[2018-05-31] MEDS: RAMIPRIL 2.5 MG CAP PO SCH (09:00)
[2018-05-31] MEDS: ANASTROZOLE 1 MG TAB PO SCH (09:00)
[2018-05-31] MEDS: METOPROLOL XL 50 MG TAB PO SCH (09:15)
[2018-05-31] MEDS: FERROUS SULFATE 325 MG TAB PO SCH ×3 (09:15→20:49)
[2018-05-31] MEDS: CITALOPRAM 10 MG TABLET PO SCH (09:16)
[2018-05-31] MEDS: ASPIRIN 81 MG CHEWABLE TABLET PO SCH (09:16)
[2018-05-31] MEDS: PANTOPRAZOLE 40MG TABLET PO SCH (09:17)
--- NOTE | 2018-05-31 09:41 | P.CNS ---
Date of Consult: 05/31/18 Reason for Consult: MITCH/ CKD III Requesting Physician: Wendy Laura Chief Complaint: Altered mental status / toxic encephalopathy/ UTI/ coagulopathy History of Present Illness: Patient is a 77-year-old female who lives with her daughter, presents to the emergency room with altered mentation. Patient has not been behaving like herself but she was given IV antibiotics and IV hydration in the emergency room. Her urinalysis revealed a urinary tract infection. Patient also has significant worsening of her renal function over the last month. Patient has significant uremia along with an elevated creatinine. Diagnosis: Weakness;Unspecified kidney failure;Urinary tract infection, site not specified Presentation: 21:40 Presenting complaint: EMS states: 2 DAYS COMPLAINING OF WEAKNESS AND HIGH BLOOD rv PRESSURE. DOES NOT WANT TO AMBULATE BECAUSE OF FEAR FROM FALLING. COMPLAINING OF UNSTEADY GAIT. SHE GOT DIMINISHED BREATH SOUNDS ON THE LEFT SIDE. INITIAL BP IS 170/80 (MANUAL), THEN 126/53 IN THE AMBULANCE. PATIENT IS ALERT AND ORIENTED. Limited HPI/ ROS due to confusion/ acute illness. Feeling better today with less dizziness and weakness. Allergies Quinolones Allergy (Verified 09/25/17 01:08) Anaphylaxis Home medications list reviewed: Yes Home Medications: ALPRAZolam [Xanax] 0.25 mg PO BID PRN 05/31/18 Anastrozole [Arimidex] 1 mg PO DAILY 05/31/18 Aspirin Chewable [Aspirin Chewable*] 81 mg PO DAILY 05/31/18 Atorvastatin Calcium [Lipitor] 40 mg PO BEDTIME 05/31/18 Chlorthalidone [Hygroton 25mg Tab] 25 mg PO DAILY 05/31/18 Citalopram [Celexa] 20 mg PO DAILY 05/31/18 Ferrous Sulfate [Feosol] 325 mg PO TID 05/31/18 Insulin Degludec [Tresiba Flextouch U-200] 40 unit SQ DAILY 05/31/18 Meclizine HCl [Antivert] 25 mg PO TID PRN 05/31/18 Metoprolol Succinate [Toprol Xl] 50 mg PO DAILY 05/31/18 Pantoprazole [Protonix Tab] 40 mg PO DAILY 05/31/18 Ramipril [Altace] 2.5 mg PO DAILY 05/31/18 Warfarin Sodium [Coumadin] 2 mg PO DAILY 05/31/18 - Past Medical/Surgical History Diabetic: Yes -: Atrial fibrillation, Cardiology-Dr. Camarena -: Chronic anticoagulation-Coumadin -: HTN -: GERD -: Chronic renal disease, Baseline GFR-30, Nephrology -: PVD -: Gout -: Depression with Anxiety -: Diabetes mellitus type 2, insulin-dependent -: Coronary disease -: Carotid arterial disease -: Hyperlipidemia -: Appendectomy -: Tubal ligation -: Hysterectomy -: Heart Cath -: right breast lumpectomy with lymph node removal Psychosocial/ Personal History[facility] has [facility] children. - Family History Brother Medical History: Diabetes Mother Medical History: Heart disease, Hypertension, Diabetes Notes: arthritis - Social History Smoking Status: Never smoker Alcohol use: No CD- Drugs: No Caffeine use: Yes Review of Systems 10-point ROS is otherwise unremarkable General: Weakness, Malaise Respiratory: Cough Neurological: Weakness, Confusion Physical Examination Temp Pulse Resp BP Pulse Ox 97.1 F 62 16 141/61 H 96 05/31/18 08:15 05/31/18 09:15 05/31/18 08:15 05/31/18 09:15 05/31/18 08:15 General: In no apparent distress, Oriented x3, Cooperative HEENT: Atraumatic Neck: Supple, No LAD Respiratory: Clear to auscultation bilaterally Cardiovascular: No edema (LE Edema.), Edema (Trace Hip) Gastrointestinal: Soft and benign, Non-distended Musculoskeletal: No clubbing, No contractures Integumentary: No rashes, No cyanosis Neurological: Normal speech Laboratory Data (last 24 hrs) 05/30/18 22:41: PT 49.3 H, INR 4.42 H* 05/30/18 22:41: WBC 7.1, Hgb 10.0 L, Hct 30.6 L, Plt Count 208 05/30/18 22:41: Sodium 143, Potassium 4.7, BUN 105 H, Creatinine 3.05 H, Glucose 326 H, Magnesium 1.6 L D, Total Bilirubin 0.3, AST 15, ALT 22, Alkaline Phosphatase 165 H Imagings Data: EXAM DESCRIPTION: CT - Head Brain Wo Cont - 05/31/2018 12:23 am CLINICAL HISTORY: The patient is 77 years old and is Female; general weakness TECHNIQUE: Axial computed tomography images of the head/brain without intravenous contrast. Sagittal and coronal reformatted images were created and reviewed. This CT exam was performed using one or more of the following dose reduction techniques: automated exposure control, adjustment of the mA and/or kV according to patient size, and/or use of iterative reconstruction technique. COMPARISON: CT head January 31, 2018 FINDINGS: BRAIN: There is diffuse cerebral atrophy present, consistent with this patient's age. There is patchy hypoattenuation of the deep white matter which is non-specific, but most likely owing to chronic small vessel ischemic change in a patient of this age group. No intracranial hemorrhage, mass effect , or midline shift is seen. There are no extra-axial fluid collections. VENTRICLES: There is diffuse prominence of the ventricles, which is likely related to central atrophy. BONES/JOINTS: No acute fracture. SOFT TISSUES: Unremarkable. SINUSES: Unremarkable as visualized. No acute sinusitis. MASTOID AIR CELLS: Unremarkable as visualized. No mastoid effusion. IMPRESSION: Age-related atrophy and chronic white matter ischemic changes, with no evidence of an acute intracranial abnormality. Conclusions/Impression: A/ MITCH likely due to hypovolemia. Acidosis. CKD IV. Diastolic CHF, chronic. HTN with CKD/ CHF. DM II with CKD. Anemia in chronic illness. Hypocalcemia. Hypomagnesemia. Moderate malnutrition. Acute cystitis. P/ Continue current POC and Medications. Change IVF to 1/2NS. Agree with abx. Follow up culture. Start Vitamin D. Replete magnesium. Consider oral bicarb therapy. Maintain nutrition. No NSAIDs. AM labs. Daily weight. Thank you kindly for the consultation.
[2018-05-31] MEDS ORDERED: CEFTRIAXONE/SWI 1gm 1 GM/10 ML SYR IV SCH (10:00)
[2018-05-31] MEDS: CHLORTHALIDONE 25 MG TAB PO SCH (10:32)
[2018-05-31 11:46] LABS: Absolute Lymphocytes (CBC) 2.1 K/uL (0.7-4.9); Absolute Monocytes 0.3 K/uL (0.1-1.3); Absolute Neutrophil 4.7 K/uL (1.8-8.0); Basophils % 0.6 % (0-1.3); Eosinophils % 4.8 % (0-4.4); Hematocrit 33.1 % (36.0-45.0); Lymphocytes % 27.9 % (15.3-44.8); MPV 9.2 fL (7.6-11.3); Monocytes % 4.2 % (3.3-12.3); RBC Red Blood Cell Count 3.52 M/uL (3.86-4.86)
[2018-05-31 12:00] LABS: Albumin 2.8 g/dL (3.4-5.0); Bilirubin Total 0.4 mg/dL (0.2-1.0); Potassium 4.5 mmol/L (3.5-5.1); Protein, Total 6.6 g/dL (6.4-8.2)
[2018-05-31 12:20] LABS: Protime INR 4.54
--- NOTE | 2018-05-31 12:23 | RAD REPORT ---
EXAM DESCRIPTION: CT - Head Brain Wo Cont - 05/31/2018 12:23 am CLINICAL HISTORY: The patient is 77 years old and is Female; general weakness TECHNIQUE: Axial computed tomography images of the head/brain without intravenous contrast. Sagitt al and coronal reformatted images were created and reviewed. This CT exam was performed using one o r more of the following dose reduction techniques: automated exposure control, adjustment of the mA and/or kV according to patient size, and/or use of iterative reconstruction technique. COMPARISON: CT head January 31, 2018 FINDINGS: BRAIN: There is diffuse cerebral atrophy present, consistent with this patient's age. There is patchy hypoattenuation of the deep white matter which is non-specific, but most likely owing to chronic small vessel ischemic change in a patient of this age group. No intracranial hemorrhage , mass effect, or midline shift is seen. There are no extra-axial fluid collections. VENTRICLES: There is diffuse prominence of the ventricles, which is likely related to central at [place]. BONES/JOINTS: No acute fracture. SOFT TISSUES: Unremarkable. SINUSES: Unremarkable as visualized. No acute sinusitis. MASTOID AIR CELLS: Unremarkable as visualized. No mastoid effusion. IMPRESSION: Age-related atrophy and chronic white matter ischemic changes, with no evidence of an ac thais intracranial abnormality. Electronically signed by: Jill Owsald MD 05/31/2018 12:09 AM CDT Due to temporary technical issues with the PACS/Fluency reporting system, reports are being signed by the in house radiologist as a courtesy to ensure prompt reporting. The interpreting radiologist is f ully responsible for the content of the report.
[2018-05-31] MEDS: Meropenem 1,000 MG in NA CHLORIDE 0.9% 100 ML IV SCH ×2 (14:24→20:49)
[2018-05-31] MEDS ORDERED: CEFTRIAXONE 1 GM/NS 50 ML 1 GM/50 ML BAG IV SCH (17:00)
[2018-05-31] MEDS: ATORVASTATIN 20 MG TAB PO SCH (20:49)
[2018-05-31] MEDS ORDERED: Meropenem 1000 MG/VIAL IV SCH (21:00)
[2018-05-31] MEDS: NACHLORIDE 0.45% 1,000 ML IV SCH (22:51)
[2018-06-01] MEDS ORDERED: CEFTRIAXONE/SWI 1gm 1 GM/10 ML SYR IV SCH (05:00)
[2018-06-01 06:02] LABS: Absolute Lymphocytes (CBC) 2.1 K/uL (0.7-4.9); Absolute Monocytes 0.3 K/uL (0.1-1.3); Absolute Neutrophil 4.2 K/uL (1.8-8.0); Eosinophils % 5.9 % (0-4.4); Hematocrit 32.7 % (36.0-45.0); Lymphocytes % 29.8 % (15.3-44.8); MPV 9.6 fL (7.6-11.3); Monocytes % 3.9 % (3.3-12.3); RBC Red Blood Cell Count 3.51 M/uL (3.86-4.86)
[2018-06-01 06:26] LABS: Albumin 2.4 g/dL (3.4-5.0); Bilirubin Total 0.4 mg/dL (0.2-1.0); Potassium 4.4 mmol/L (3.5-5.1); Protein, Total 6.1 g/dL (6.4-8.2); Uric Acid 8.2 mg/dL (2.6-6.0)
[2018-06-01] MEDS: INSULIN DEGLUDEC 40 UNIT SQ SCH (09:00)
[2018-06-01] MEDS: NACHLORIDE 0.45% 1,000 ML IV SCH ×2 (09:15→10:48)
[2018-06-01] MEDS: ASPIRIN 81 MG CHEWABLE TABLET PO SCH (09:16)
[2018-06-01] MEDS: PANTOPRAZOLE 40MG TABLET PO SCH (09:16)
[2018-06-01] MEDS: CALCITROL 0.25 MCG CAP PO SCH (09:16)
[2018-06-01] MEDS: METOPROLOL XL 50 MG TAB PO SCH (09:17)
[2018-06-01] MEDS: CITALOPRAM 10 MG TABLET PO SCH (09:17)
[2018-06-01] MEDS: VITAMIN D 5,000 UNIT CAP PO SCH (09:17)
[2018-06-01] MEDS: FERROUS SULFATE 325 MG TAB PO SCH ×3 (09:18→20:09)
[2018-06-01] MEDS: MAGNESIUM OXIDE 400 MG TAB PO SCH ×2 (09:19→20:09)
[2018-06-01] MEDS: ANASTROZOLE 1 MG TAB PO SCH (09:58)
[2018-06-01] MEDS: CHLORTHALIDONE 25 MG TAB PO SCH (09:58)
[2018-06-01] MEDS: Meropenem 1,000 MG in NA CHLORIDE 0.9% 100 ML IV SCH ×2 (09:58→20:09)
[2018-06-01] MEDS: RAMIPRIL 2.5 MG CAP PO SCH (09:58)
[2018-06-01 10:23] LABS: Urine Appearance CLOUDY; Urine Bilirubin NEGATIVE (NEG); Urine Blood 1+ (NEG); Urine Color YELLOW; Urine Glucose NEGATIVE (NEG); Urine Protein 1+ (NEG); Urine Urobilinogen 0.2 mg/dL (0.2-1.0)
[2018-06-01 10:28] LABS: UR MICROALBUMIN 15.2 mg/dL (< 1.9)
[2018-06-01 10:51] LABS: Urine Bacteria <20 /HPF (<20); Urine Culture Reflex Order REFLEXED; Urine RBC <5 /HPF (NONE SEEN); Urine Yeast PRESENT (NONE SEEN)
[2018-06-01] MEDS ORDERED: GLUCAGON 1 MG/VIAL IM PRN (12:17)
[2018-06-01] MEDS ORDERED: D50W 25 GM/50 ML SYRINGE IV PRN (12:17)
--- NOTE | 2018-06-01 12:39 | P.PN ---
Subjective Date of Service: 06/01/18 Chief Complaint: Altered mental status / toxic encephalopathy/ UTI/ coagulopathy Patient seen and examined at bedside with RN. Chart reviewed. Case discussed with nephrology and family at bedside. Denies having any nausea vomiting fever chills overnight. Currently alert and oriented x3 Review of Systems 10-point ROS is otherwise unremarkable Physical Examination - Vital Signs Temperature: 97.4 F Blood Pressure: 145/56 Pulse: 62 Respirations: 18 Pulse Ox (%): 95 - Physical Exam General: Alert, In no apparent distress HEENT: Atraumatic, PERRLA, EOMI Neck: Supple, JVD not distended Respiratory: Clear to auscultation bilaterally, Normal air movement Cardiovascular: Regular rate/rhythm, Normal S1 S2 Gastrointestinal: Normal bowel sounds, No tenderness Musculoskeletal: No tenderness Integumentary: No rashes Neurological: Normal speech, Normal tone, Normal affect Lymphatics: No axilla or inguinal lymphadenopathy - Studies Medications List Reviewed: Yes Assessment And Plan - Current Problems (Diagnosis) (1) Altered mental status Onset Date: 08/31/15 Current Visit: No Status: Acute Plan: Altered mental status most likely secondary to toxic encephalopathy secondary to UTI -currently patient is alert and oriented x3. Will monitor closely. -head CT negative Qualifiers: Altered mental status type: disorientation Qualified Code(s): R41.0 - Disorientation, unspecified (2) UTI (urinary tract infection) Onset Date: 07/06/15 Current Visit: No Status: Acute Plan: UA with UTI. With H.o of recurrent UTI with ESBL -started on IV meropenem 03/21 -urine culture pending at this time -will follow up with culture Qualifiers: Urinary tract infection type: acute cystitis Hematuria presence: without hematuria Qualified Code(s): N30.00 - Acute cystitis without hematuria (3) Warfarin-induced coagulopathy Onset Date: 01/10/18 Current Visit: No Status: Acute Plan: Patient's INR on admission 4.4 to. Super therapeutic at this time -will hold warfarin at this time -patient takes warfarin for atrial fibrillation thus goal should be 2-3. (4) Atrial fibrillation Onset Date: 11/27/17 Current Visit: No Status: Chronic Plan: Started on rate control medication. Warfarin on hold due to supratherapeutic INR Qualifiers: Atrial fibrillation type: chronic Qualified Code(s): I48.2 - Chronic atrial fibrillation (5) CAD (coronary artery disease) Onset Date: 11/27/17 Current Visit: No Status: Chronic Plan: Stable and restarted on home medication Qualifiers: Coronary Disease-Associated Artery/Lesion type: [place] artery [place] vs. transplanted heart: [place] heart Associated angina: without angina Qualified Code(s): I25.10 - Atherosclerotic heart disease of [place] coronary artery without angina pectoris (6) CHF (congestive heart failure) Onset Date: 07/06/15 Current Visit: No Status: Chronic Plan: Stable and restarted on home medication. Caution with IV fluids Qualifiers: Heart failure type: systolic Heart failure chronicity: chronic Qualified Code(s): I50.22 - Chronic systolic (congestive) heart failure (7) CKD (chronic kidney disease) stage 3, GFR 30-59 ml/min Onset Date: 11/27/17 Current Visit: No Status: Chronic Plan: Nephrology consulted. Appreciated recommendations. Caution with IV fluids. (8) Carotid arterial disease Onset Date: 04/17/16 Current Visit: No Status: Chronic Qualifiers: Carotid artery disease type: stenosis Laterality: right Qualified Code(s) : I65.21 - Occlusion and stenosis of right carotid artery (9) Diabetes mellitus Onset Date: 07/06/15 Current Visit: No Status: Chronic Plan: Insulin sliding scale and Accu-Cheks Qualifiers: Diabetes mellitus type: type 2 Diabetes mellitus retirement insulin use: with terminal carman use Diabetes mellitus complication status: with kidney complications Diabetes mellitus complication detail: with chronic kidney disease Chronic kidney disease stage: stage 4 (severe) Qualified Code(s): E11.22 - Type 2 diabetes mellitus with diabetic chronic kidney disease; N18.4 - Chronic kidney disease, stage 4 (severe); Z79.4 - oil heaterman (current) use of insulin (10) HTN (hypertension) Onset Date: 04/17/16 Current Visit: No Status: Chronic Plan: Stable restarted on home medication Qualifiers: Hypertension type: essential hypertension Qualified Code(s): I10 - Essential (primary) hypertension (11) Hyperlipidemia Onset Date: 11/27/17 Current Visit: No Status: Chronic Plan: Stable and started on home medication Qualifiers: Hyperlipidemia type: mixed hyperlipidemia Qualified Code(s): E78.2 - Mixed hyperlipidemia - Plan Pending clinical improvement at this time. Will continue with IV antibiotics. Will follow up with culture this time. Discharge Plan: Home Plan to discharge in: Greater than 2 days - Code Status/Comfort Care Code Status Assessed: Yes Critical Care: No
[2018-06-01] MEDS: INSULIN -REGULAR HUMAN 50 UNIT/0.5 ML ML SQ SCH ×3 (13:00→20:10)
[2018-06-01 14:26] LABS: Protime INR 3.37
[2018-06-01] MEDS: ATORVASTATIN 20 MG TAB PO SCH (20:09)
[2018-06-02] MEDS: NACHLORIDE 0.45% 1,000 ML IV SCH (05:20)
[2018-06-02] MEDS: INSULIN -REGULAR HUMAN 50 UNIT/0.5 ML ML SQ SCH ×4 (07:30→21:36)
[2018-06-02] MEDS: RAMIPRIL 2.5 MG CAP PO SCH (08:53)
[2018-06-02] MEDS: FERROUS SULFATE 325 MG TAB PO SCH ×3 (08:53→20:07)
[2018-06-02] MEDS: VITAMIN D 5,000 UNIT CAP PO SCH (08:53)
[2018-06-02] MEDS: CITALOPRAM 10 MG TABLET PO SCH (08:53)
[2018-06-02] MEDS: MAGNESIUM OXIDE 400 MG TAB PO SCH ×2 (08:54→20:07)
[2018-06-02] MEDS: ASPIRIN 81 MG CHEWABLE TABLET PO SCH (08:54)
[2018-06-02] MEDS: PANTOPRAZOLE 40MG TABLET PO SCH (08:54)
[2018-06-02] MEDS: ANASTROZOLE 1 MG TAB PO SCH (08:54)
[2018-06-02] MEDS: Meropenem 1,000 MG in NA CHLORIDE 0.9% 100 ML IV SCH ×2 (08:55→20:06)
[2018-06-02] MEDS: METOPROLOL XL 50 MG TAB PO SCH (08:55)
[2018-06-02] MEDS: CALCITROL 0.25 MCG CAP PO SCH (08:55)
[2018-06-02] MEDS: INSULIN DEGLUDEC 40 UNIT SQ SCH (09:00)
[2018-06-02 09:41] LABS: Absolute Lymphocytes (CBC) 2.3 K/uL (0.7-4.9); Absolute Monocytes 0.3 K/uL (0.1-1.3); Absolute Neutrophil 4.2 K/uL (1.8-8.0); Basophils % 0.6 % (0-1.3); Eosinophils % 4.1 % (0-4.4); Lymphocytes % 31.9 % (15.3-44.8); MPV 9.3 fL (7.6-11.3); RBC Red Blood Cell Count 3.54 M/uL (3.86-4.86)
[2018-06-02 09:47] LABS: Protime INR 1.93
[2018-06-02 09:58] LABS: Potassium 4.8 mmol/L (3.5-5.1)
[2018-06-02 09:59] LABS: Albumin 2.7 g/dL (3.4-5.0); Bilirubin Total 0.5 mg/dL (0.2-1.0); Protein, Total 6.3 g/dL (6.4-8.2)
--- NOTE | 2018-06-02 10:00 | P.PN ---
Subjective Date of Service: 06/02/18 Chief Complaint: Altered mental status / toxic encephalopathy/ UTI/ coagulopathy Patient seen and examined at bedside with RN. Chart reviewed. Case discussed with nephrology and family at bedside. Denies having any nausea vomiting fever chills overnight. Currently alert and oriented x3 Review of Systems 10-point ROS is otherwise unremarkable Physical Examination - Vital Signs Temperature: 97.3 F Blood Pressure: 151/64 Pulse: 64 Respirations: 15 Pulse Ox (%): 96 - Physical Exam General: Alert, In no apparent distress HEENT: Atraumatic, PERRLA, EOMI Neck: Supple, JVD not distended Respiratory: Clear to auscultation bilaterally, Normal air movement Cardiovascular: Regular rate/rhythm, Normal S1 S2 Gastrointestinal: Normal bowel sounds, No tenderness Musculoskeletal: No tenderness Integumentary: No rashes Neurological: Normal speech, Normal tone, Normal affect Lymphatics: No axilla or inguinal lymphadenopathy - Studies Microbiology Data (last 24 hrs): 05/30/18 23:53 Clean Catch Urine [place] Count - Final >100,000 CFU/ML. 05/30/18 23:53 Clean Catch Urine - Final Klebsiella Pneumoniae Medications List Reviewed: Yes Assessment And Plan - Current Problems (Diagnosis) (1) Altered mental status Onset Date: 08/31/15 Current Visit: No Status: Acute Plan: Altered mental status most likely secondary to toxic encephalopathy secondary to UTI. Resolved now -currently patient is alert and oriented x3. Will monitor closely. -head CT negative Qualifiers: Altered mental status type: disorientation Qualified Code(s): R41.0 - Disorientation, unspecified (2) UTI (urinary tract infection) Onset Date: 07/06/15 Current Visit: No Status: Acute Plan: UA with UTI. With H.o of recurrent UTI with ESBL -On IV meropenem 04/18 -urine culture pending at this time -will follow up with culture. Qualifiers: Urinary tract infection type: acute cystitis Hematuria presence: without hematuria Qualified Code(s): N30.00 - Acute cystitis without hematuria (3) Warfarin-induced coagulopathy Onset Date: 01/10/18 Current Visit: No Status: Acute Plan: Patient's INR on admission 4.4 to. Super therapeutic at this time. Today INR is 3.32 -will hold warfarin at this time -patient takes warfarin for atrial fibrillation thus goal should be 2-3. (4) Atrial fibrillation Onset Date: 11/27/17 Current Visit: No Status: Chronic Plan: Started on rate control medication. Warfarin on hold due to supratherapeutic INR Qualifiers: Atrial fibrillation type: chronic Qualified Code(s): I48.2 - Chronic atrial fibrillation (5) CAD (coronary artery disease) Onset Date: 11/27/17 Current Visit: No Status: Chronic Plan: Stable and restarted on home medication Qualifiers: Coronary Disease-Associated Artery/Lesion type: [place] artery [place] vs. transplanted heart: [place] heart Associated angina: without angina Qualified Code(s): I25.10 - Atherosclerotic heart disease of [place] coronary artery without angina pectoris (6) CHF (congestive heart failure) Onset Date: 07/06/15 Current Visit: No Status: Chronic Plan: Stable and restarted on home medication. Caution with IV fluids Qualifiers: Heart failure type: systolic Heart failure chronicity: chronic Qualified Code(s): I50.22 - Chronic systolic (congestive) heart failure (7) CKD (chronic kidney disease) stage 3, GFR 30-59 ml/min Onset Date: 11/27/17 Current Visit: No Status: Chronic Plan: Nephrology consulted. Appreciated recommendations. Caution with IV fluids. (8) Carotid arterial disease Onset Date: 04/17/16 Current Visit: No Status: Chronic Qualifiers: Carotid artery disease type: stenosis Laterality: right Qualified Code(s) : I65.21 - Occlusion and stenosis of right carotid artery (9) Diabetes mellitus Onset Date: 07/06/15 Current Visit: No Status: Chronic Plan: Insulin sliding scale and Accu-Cheks Qualifiers: Diabetes mellitus type: type 2 Diabetes mellitus care home insulin use: with superintendent container terminal use Diabetes mellitus complication status: with kidney complications Diabetes mellitus complication detail: with chronic kidney disease Chronic kidney disease stage: stage 4 (severe) Qualified Code(s): E11.22 - Type 2 diabetes mellitus with diabetic chronic kidney disease; N18.4 - Chronic kidney disease, stage 4 (severe); Z79.4 - superintendent container terminal (current) use of insulin (10) HTN (hypertension) Onset Date: 04/17/16 Current Visit: No Status: Chronic Plan: Stable restarted on home medication Qualifiers: Hypertension type: essential hypertension Qualified Code(s): I10 - Essential (primary) hypertension (11) Hyperlipidemia Onset Date: 11/27/17 Current Visit: No Status: Chronic Plan: Stable and started on home medication Qualifiers: Hyperlipidemia type: mixed hyperlipidemia Qualified Code(s): E78.2 - Mixed hyperlipidemia - Plan Pending clinical improvement at this time. Will continue with IV antibiotics. Will follow up with culture this time. Discharge Plan: Home Plan to discharge in: 48 Hours - Code Status/Comfort Care Code Status Assessed: Yes Critical Care: No
[2018-06-02] MEDS ORDERED: WARFARIN SODIUM 2 MG TAB PO SCH ×2 (17:00)
[2018-06-02] MEDS: ATORVASTATIN 20 MG TAB PO SCH (20:07)
[2018-06-02] MEDS: AMOX/K CLAV 500 MG TAB PO SCH (21:36)
[2018-06-03] MEDS: NACHLORIDE 0.45% 1,000 ML IV SCH (05:31)
[2018-06-03 05:42] VITALS: BMI 31.3
[2018-06-03 06:25] LABS: Absolute Lymphocytes (CBC) 2.1 K/uL (0.7-4.9); Absolute Monocytes 0.4 K/uL (0.1-1.3); Absolute Neutrophil 4.8 K/uL (1.8-8.0); Basophils % 0.8 % (0-1.3); Eosinophils % 3.8 % (0-4.4); Hematocrit 31.9 % (36.0-45.0); Lymphocytes % 26.7 % (15.3-44.8); MPV 9.3 fL (7.6-11.3); Monocytes % 5.6 % (3.3-12.3); RBC Red Blood Cell Count 3.41 M/uL (3.86-4.86)
[2018-06-03 06:26] LABS: Protime INR 1.51
[2018-06-03] MEDS ORDERED: PANTOPRAZOLE 40MG TABLET PO SCH (06:30)
[2018-06-03 06:41] LABS: Albumin 2.7 g/dL (3.4-5.0); Bilirubin Total 0.7 mg/dL (0.2-1.0); Magnesium 2.4 mg/dL (1.8-2.4); Potassium 4.6 mmol/L (3.5-5.1); Protein, Total 6.5 g/dL (6.4-8.2)
[2018-06-03] MEDS: INSULIN -REGULAR HUMAN 50 UNIT/0.5 ML ML SQ SCH ×2 (07:30→12:44)
[2018-06-03] MEDS: FERROUS SULFATE 325 MG TAB PO SCH (08:35)
[2018-06-03] MEDS: VITAMIN D 5,000 UNIT CAP PO SCH (08:35)
[2018-06-03] MEDS: ASPIRIN 81 MG CHEWABLE TABLET PO SCH (08:35)
[2018-06-03] MEDS: CITALOPRAM 10 MG TABLET PO SCH (08:35)
[2018-06-03] MEDS: MAGNESIUM OXIDE 400 MG TAB PO SCH (08:35)
[2018-06-03] MEDS: AMOX/K CLAV 500 MG TAB PO SCH (08:35)
[2018-06-03] MEDS: RAMIPRIL 2.5 MG CAP PO SCH (08:36)
[2018-06-03] MEDS: ANASTROZOLE 1 MG TAB PO SCH (08:36)
[2018-06-03] MEDS: CALCITROL 0.25 MCG CAP PO SCH (08:36)
[2018-06-03] MEDS: METOPROLOL XL 50 MG TAB PO SCH (08:36)
[2018-06-03] MEDS: INSULIN DEGLUDEC 40 UNIT SQ SCH (08:39)
[2018-06-03 09:50] VITALS: O2SAT 90
--- NOTE | 2018-06-03 12:42 | P.DS ---
Admission Date: 05/31/18 Discharge Date: 06/03/18 Primary Care Provider: Dr. Noman Laura; Nephrology-Dr. Whalen Disposition: DC HOME/HOME HEALTH CARE Discharge Condition: GOOD Reason for Admission: Altered mental status / toxic encephalopathy/ UTI/ coagulopathy Consultations: Nephrology-Dr. Whalen Procedures: CT head: COMPARISON: CT head January 31, 2018 FINDINGS: BRAIN: There is diffuse cerebral atrophy present, consistent with this patient's age. There is patchy hypoattenuation of the deep white matter which is non-specific, but most likely owing to chronic small vessel ischemic change in a patient of this age group. No intracranial hemorrhage, mass effect , or midline shift is seen. There are no extra-axial fluid collections. VENTRICLES: There is diffuse prominence of the ventricles, which is likely related to central atrophy. BONES/JOINTS: No acute fracture. SOFT TISSUES: Unremarkable. SINUSES: Unremarkable as visualized. No acute sinusitis. MASTOID AIR CELLS: Unremarkable as visualized. No mastoid effusion. IMPRESSION: Age-related atrophy and chronic white matter ischemic changes, with no evidence of an acute intracranial abnormality. Medical Problem List: Altered mental status secondary to toxic encephalopathy related to UTI, urine culture positive for Klebsiella Chronic atrial fibrillation on chronic anti coagulation therapy CAD Chronic systolic CHF Chronic renal disease stage III Diabetes mellitus type 2 on insulin Hypertension Hyperlipidemia Carotid arterial disease GERD Depression with anxiety Brief History of Present Illness: 69-year-old female presented to the emergency room with altered mental status. Patient found to have toxic encephalopathy with UTI. Patient was admitted for treatment. Hospital Course: Patient presented with altered mental status secondary to toxic encephalopathy related to UTI. Patient was treated during the course of her stay. Urine culture was positive for Klebsiella. This was transitioned to oral medication. At discharge she will continue with Augmentin 250 mg 1 pill twice daily for 5 days. Recommend to continue with UTI prevention. Education will be provided. Patient with chronic atrial fibrillation on chronic anti coagulation therapy. At discharge she will continue with Coumadin 2 mg daily. Recommend to recheck INR in 2 days to monitor her progress since the patient will be on antibiotic therapy. 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 Further adjustment can be done by cardiology or her PCP. Patient with CAD. Patient will continue with aspirin 81 mg daily. Patient with hypertension. At discharge she will continue with chlorthalidone 25 mg daily, metoprolol XL 50 mg daily, and Altace 2.5 mg daily. Recommend to maintain blood pressures less 150/80. Further adjustment can be done by her PCP. Patient with diabetes mellitus type 2. Patient will continue with her insulin therapy-Tresiba 40 units subcu daily. Further adjustment can be done by her PCP. Patient with depression. Patient continue with Celexa 20 mg daily. Patient also takes Xanax 0.25 mg 1 pill twice daily as needed for anxiety. Patient with chronic renal disease, stage III. Recommend to follow up with nephrology in 1 week to monitor progress. Recommend to recheck BMP in 1 week. Future medications will need to be renally dosed. Recommend no further use of nonsteroidal anti-inflammatories. Further adjustment in medication can be done by nephrology. Patient with GERD. Patient will continue with Protonix 40 mg daily. Patient with anemia of chronic disease and iron deficiency. Patient continue with iron 325 mg 1 pill 3 times a day. Patient with hyperlipidemia. Patient will continue with Lipitor 40 mg daily. Vital Signs/Physical Exam: Temp Pulse Resp BP Pulse Ox 97.1 F 59 18 191/77 H 90 L 06/03/18 08:00 06/03/18 08:36 06/03/18 08:00 06/03/18 08:36 06/03/18 08:00 General: Alert, In no apparent distress, Oriented x3, Cooperative HEENT: Atraumatic Neck: Supple Respiratory: Clear to auscultation bilaterally, Normal air movement Cardiovascular: Normal pulses, Regular rate/rhythm Gastrointestinal: Normal bowel sounds, Soft and benign, Non-distended, No tenderness, No masses, No rebound, No guarding Musculoskeletal: No erythema, No tenderness, No warmth Integumentary: No tenderness/swelling, No erythema, No warmth, No cyanosis Neurological: Normal speech, Normal strength at 5/5 x4 extr, Normal tone, Normal affect Laboratory Data at Discharge: WBC 7.7 K/uL (4.3-10.9) 06/03/18 06:15 Hgb 10.4 g/dL (12.0-15.0) L 06/03/18 06:15 Hct 31.9 % (36.0-45.0) L 06/03/18 06:15 Plt Count 223 K/uL (152-406) 06/03/18 06:15 PT 17.5 SECONDS (9.5-12.5) H 06/03/18 06:15 INR 1.51 06/03/18 06:15 APTT 62.9 SECONDS (24.3-36.9) H 05/31/18 11:16 Sodium 144 mmol/L (136-145) 06/03/18 06:15 Potassium 4.6 mmol/L (3.5-5.1) 06/03/18 06:15 BUN 48 mg/dL (7-18) H 06/03/18 06:15 Creatinine 1.61 mg/dL (0.55-1.3) H 06/03/18 06:15 Glucose 123 mg/dL (74-106) H 06/03/18 06:15 Uric Acid 8.2 mg/dL (2.6-6.0) H D 06/01/18 05:18 Phosphorus 3.0 mg/dL (2.5-4.9) 06/01/18 05:18 Magnesium 2.4 mg/dL (1.8-2.4) 06/03/18 06:15 Total Bilirubin 0.7 mg/dL (0.2-1.0) 06/03/18 06:15 AST 23 U/L (15-37) 06/03/18 06:15 ALT 21 U/L (12-78) 06/03/18 06:15 Alkaline Phosphatase 108 U/L (45-117) 06/03/18 06:15 Home Medications: ALPRAZolam [Xanax*] 0.25 mg PO BID PRN 05/31/18 Anastrozole [Arimidex*] 1 mg PO DAILY 05/31/18 Aspirin Chewable [Aspirin Chewable*] 81 mg PO DAILY 05/31/18 Atorvastatin Calcium [Lipitor*] 40 mg PO BEDTIME 05/31/18 Chlorthalidone [Hygroton 25mg Tab*] 25 mg PO DAILY 05/31/18 Citalopram [Celexa*] 20 mg PO DAILY 05/31/18 Ferrous Sulfate [Ferrous Sulfate*] 325 mg PO TID 05/31/18 Insulin Degludec [Tresiba Flextouch U-200] 40 unit SQ DAILY 05/31/18 Meclizine HCl [Antivert*] 25 mg PO TID PRN 05/31/18 Metoprolol Succinate [Toprol Xl*] 50 mg PO DAILY 05/31/18 Pantoprazole [Protonix Tab*] 40 mg PO DAILY 05/31/18 Ramipril [Altace*] 2.5 mg PO DAILY 05/31/18 Warfarin Sodium [Coumadin*] 2 mg PO DAILY 05/31/18 Amox/Clavulanate [Augmentin 500-125 mg Tab*] 250 mg PO BID #5 tab 06/03/18 New Medications: Amox/Clavulanate [Augmentin 500-125 mg Tab*] 250 mg PO BID #5 tab Patient Discharge Instructions: 1. Recommend to follow up with a PCP within 1 week to follow up this hospitalization. 2. Patient presented with altered mental status secondary to toxic encephalopathy related to UTI. Patient was treated during the course of her stay. Urine culture was positive for Klebsiella. This was transitioned to oral medication. At discharge she will continue with Augmentin 250 mg 1 pill twice daily for 5 days. Recommend to continue with UTI prevention. Education will be provided. 3. Patient with chronic atrial fibrillation on chronic anti coagulation therapy. At discharge she will continue with Coumadin 2 mg daily. Recommend to recheck INR in 2 days to monitor her progress since the patient will be on antibiotic therapy. 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 Further adjustment can be done by cardiology or her PCP. 4. Patient with CAD. Patient will continue with aspirin 81 mg daily. 5. Patient with hypertension. At discharge she will continue with chlorthalidone 25 mg daily, metoprolol XL 50 mg daily, and Altace 2.5 mg daily. Recommend to maintain blood pressures less 150/80. Further adjustment can be done by her PCP. 6. Patient with diabetes mellitus type 2. Patient will continue with her insulin therapy-Tresiba 40 units subcu daily. Further adjustment can be done by her PCP. 7. Patient with depression. Patient continue with Celexa 20 mg daily. Patient also takes Xanax 0.25 mg 1 pill twice daily as needed for anxiety. 8. Patient with chronic renal disease, stage III. Recommend to follow up with nephrology in 1 week to monitor progress. Recommend to recheck BMP in 1 week. Future medications will need to be renally dosed. Recommend no further use of nonsteroidal anti-inflammatories. Further adjustment in medication can be done by nephrology. 9. Patient with GERD. Patient will continue with Protonix 40 mg daily. 10. Patient with anemia of chronic disease and iron deficiency. Patient continue with iron 325 mg 1 pill 3 times a day. 11. Patient with hyperlipidemia. Patient will continue with Lipitor 40 mg daily. Diet: ADA Activity: Fall precautions Time spent managing pt's care (in minutes): 55
[2018-06-03 14:12] VITALS: BP 173/70; TEMP 97.4
--- NOTE | 2018-06-03 20:22 | P.PN ---
Date of Service: 06/03/18 Vital Signs Temp Pulse Resp BP Pulse Ox 97.4 F 55 18 173/70 H 90 L 06/03/18 12:00 06/03/18 12:00 06/03/18 12:00 06/03/18 12:00 06/03/18 12:00 Microbiology Results 05/30/18 23:53 Clean Catch Urine [place] Count - Final >100,000 CFU/ML. 05/30/18 23:53 Clean Catch Urine - Final Klebsiella Pneumoniae Assessment/ Plan: Nephrology. Feeling better today. Wants to go home today. CPS improved without CP or SOB. No acute events overnight. Good appetite. Good urine output. Vitals, medications, blood work and imaging reviewed in the chart. General: In no apparent distress, Oriented x3, Cooperative HEENT: Atraumatic Neck: Supple, No LAD Respiratory: Clear to auscultation bilaterally Cardiovascular: No edema (LE Edema.), Edema (Trace Hip) Gastrointestinal: Soft and benign, Non-distended Musculoskeletal: No clubbing, No contractures Integumentary: No rashes, No cyanosis Neurological: Normal speech Laboratory Data (last 24 hrs) 05/30/18 22:41: PT 49.3 H, INR 4.42 H* 05/30/18 22:41: WBC 7.1, Hgb 10.0 L, Hct 30.6 L, Plt Count 208 05/30/18 22:41: Sodium 143, Potassium 4.7, BUN 105 H, Creatinine 3.05 H, Glucose 326 H, Magnesium 1.6 L D, Total Bilirubin 0.3, AST 15, ALT 22, Alkaline Phosphatase 165 H Imagings Data: EXAM DESCRIPTION: CT - Head Brain Wo Cont - 05/31/2018 12:23 am CLINICAL HISTORY: The patient is 77 years old and is Female; general weakness TECHNIQUE: Axial computed tomography images of the head/brain without intravenous contrast. Sagittal and coronal reformatted images were created and reviewed. This CT exam was performed using one or more of the following dose reduction techniques: automated exposure control, adjustment of the mA and/or kV according to patient size, and/or use of iterative reconstruction technique. COMPARISON: CT head January 31, 2018 FINDINGS: BRAIN: There is diffuse cerebral atrophy present, consistent with this patient's age. There is patchy hypoattenuation of the deep white matter which is non-specific, but most likely owing to chronic small vessel ischemic change in a patient of this age group. No intracranial hemorrhage, mass effect , or midline shift is seen. There are no extra-axial fluid collections. VENTRICLES: There is diffuse prominence of the ventricles, which is likely related to central atrophy. BONES/JOINTS: No acute fracture. SOFT TISSUES: Unremarkable. SINUSES: Unremarkable as visualized. No acute sinusitis. MASTOID AIR CELLS: Unremarkable as visualized. No mastoid effusion. IMPRESSION: Age-related atrophy and chronic white matter ischemic changes, with no evidence of an acute intracranial abnormality. Conclusions/Impression: A/ MITCH likely due to hypovolemia. Acidosis. CKD III. Diastolic CHF, chronic. HTN with CKD/ CHF. DM II with CKD. Anemia in chronic illness. Hypocalcemia. Hypomagnesemia. Moderate malnutrition. Acute Klebsiella cystitis. P/ Continue current POC and Medications. Agree with abx. Encourage nutrition. Maintain hydration. Titrate insulin to improve BG control. No NSAIDs. AM labs. Daily weight.
[2018-06-05 20:11] LABS: HBsAG Nonreactive (Nonreactive)
== END 2018-06-03 14:00 | disposition home health service (06) | DRG 689 ==
LOC: ER 21:34 → ERHOLD 05-31 02:03 → 2ND 05-31 02:38
PROVIDERS: ADMIT Hospitalist; ATTEND Family Medicine
DX: N30.00 Acute cystitis without hematuria (principal); J18.9 Pneumonia, unspecified organism; N18.6 End stage renal disease; G92 Toxic encephalopathy; N17.9 Acute kidney failure, unspecified; E87.2 Acidosis; I13.0 Hypertensive heart and chronic kidney disease with heart failure and stage 1 through stage 4 chronic kidney disease, or unspecified chronic kidney disease; I50.22 Chronic systolic (congestive) heart failure; E44.0 Moderate protein-calorie malnutrition; E86.1 Hypovolemia; N18.3 Chronic kidney disease, stage 3 (moderate); E11.22 Type 2 diabetes mellitus with diabetic chronic kidney disease; B96.1 Klebsiella pneumoniae [K. pneumoniae] as the cause of diseases classified elsewhere; R07.9 Chest pain, unspecified; D69.6 Thrombocytopenia, unspecified; R79.1 Abnormal coagulation profile; T45.515A Adverse effect of anticoagulants, initial encounter; I48.2 Chronic atrial fibrillation; D50.9 Iron deficiency anemia, unspecified; D63.8 Anemia in other chronic diseases classified elsewhere; I65.21 Occlusion and stenosis of right carotid artery; E11.51 Type 2 diabetes mellitus with diabetic peripheral angiopathy without gangrene; E83.51 Hypocalcemia; K21.9 Gastro-esophageal reflux disease without esophagitis; M10.9 Gout, unspecified; F41.8 Other specified anxiety disorders; I25.10 Atherosclerotic heart disease of native coronary artery without angina pectoris; E78.2 Mixed hyperlipidemia; I25.2 Old myocardial infarction; Z79.82 Long term (current) use of aspirin; Z79.4 Long term (current) use of insulin; Z68.32 Body mass index [BMI] 32.0-32.9, adult
CPT/HCPCS: 36415; 70450; 80048; 80053; 80076; 81001; 81003; 81015; 82043; 82570; 82962; 83735; 83880; 84100; 84484; 84550; 85025; 85610; 85730; 86317; 86704; 87077; 87086; 87088; 87186; 87340; 96361; 96365; 96375; 97116; 97163; 97530; 99285; J0696; J3475; J7030

== ENCOUNTER 2018-06-13 05:51 | Emergency (ER) | payer OTHER ==
--- OUTSIDE RECORDS SUMMARY | 2018-06-13 05:53 | XMS REPORT ---
:1940 Author Organization [facility] Address [address] [place] [address] Care Team Providers Name Role Phone Unavailable Unavailable Unavailable Problems This patient has no known problems. Allergies, Adverse Reactions, Alerts This patient has no known allergies or adverse reactions. Medications This patient has no known medications.
--- OUTSIDE RECORDS SUMMARY | 2018-06-13 05:53 | XMS REPORT ---
:1940 Author Organization eClinicalWorks Care Team Providers Name Role Phone Valentín [facility] Provider Role Unavailable Allergies No Known [...] Start End Date Status Dosage System Date [facility] 01994323245 200 UNIT/ML Active 70 UNITS FlexTouch Subcutaneous DAILY Increase 2 untis after 3 day if BS are high Results No Known Results Summary Purpose eClinicalWorks Submission
--- OUTSIDE RECORDS SUMMARY | 2018-06-13 05:53 | XMS REPORT ---
:1940 Author Organization eClinicalWorks Care Team Providers Name Role Phone Laura, [facility] Provider Role Unavailable Allergies, Adverse Reactions, Alerts [...] End Status Dosage System Date Date Citalopram [facility] 58870380347 20 MG Orally Active 1 tablet Hydrobromide Once a day Coumadin ND 01499517578 2 MG Orally Active 1 tablet Once a day Lipitor ND 47831786973 40 MG Active 1 TAB(S) ONCE A DAY ORALLY Meclizine HCl ND 38086596240 25 MG Orally Active 1 tablet Three times a day Ferrous Sulfate ND 41388902777 325 (65 Fe) MG May Active 1 tablet Orally Once a 2017 day Tresiba FlexTouch ND 32924661359 200 UNIT/ML Active not Subcutaneous defined Chlorthalidone ND 00336309028 25 MG Orally Active 1 tablet Once a day in the morning with food FreeStyle Lite [facility] 62820990087 0 Active CHECK Test BLOOD SUGAR TWICE DAILY Flonase Allergy [facility] 92902120779 50 MCG/ACT Active 1 spray in Relief Nasally Once a each day nostril Meclizine HCl [facility] 99095674917 25 Active CHEW AND SWALLOW 1 TABLET THREE TIMES DAILY Anastrozole [facility] 91204956699 1 MG Orally Active 1 tablet Once a day Protonix [facility] 59555001199 40 MG Active 1 TAB(S) ONCE A DAY ORALLY Losartan [facility] 84850847687 100 MG Orally Active 1 tablet Potassium Once a day Topamax [facility] 14363748967 50 MG Orally Active 1 tablet Once a day Protonix [facility] 55685297160 40 MG Orally Active 1 tablet Once a day Tresiba FlexTouch [facility] 73699612848 200 UNIT/ML Active 40 UNITS DAILY Results No Known Results Summary Purpose eClinicalWorks Submission
--- OUTSIDE RECORDS SUMMARY | 2018-06-13 05:54 | XMS REPORT ---
[...] System Date Date Anastrozole [facility] 37871064735 1 MG Orally Active 1 tablet Once a day Lipitor [facility] 09135764526 40 MG Orally Active 1 tablet Once a day Protonix [facility] 16721558094 40 MG Orally Active 1 tablet Once a day Topamax [facility] 66047455411 50 MG Orally Active 1 tablet Once a day Ferrous Sulfate [facility] 21266948889 325 (65 Fe) MG Active 1 tablet Orally Once a day Lipitor [facility] 29544330390 40 Active 1 TAB(S) ONCE A DAY ORALLY Tresiba FlexTouch [facility] 91006306967 200 UNIT/ML Active 70 UNITS Subcutaneous DAILY Increase 2 untis after 3 day if BS are high HydrALAZINE HCl [facility] 69116464741 25 MG Orally Active 1 tablet Two times a day with food Tresiba FlexTouch [facility] 20292683637 200 UNIT/ML Active not Subcutaneous defined Tresiba FlexTouch [facility] 33143119275 200 UNIT/ML Active INJECT 70 UNITS UNDER THE SKIN EVERY DAY INCREASE 2 UNITS AFTER 3 DAYS IF BLOOD SUGAR IS HIGH FreeStyle Lite [facility] 77333449934 0 Active CHECK Test BLOOD SUGAR TWICE DAILY Losartan [facility] 91598236422 100 MG Orally Inactive 1 tablet Potassium Once a day Pantoprazole [facility] 36811574439 40 Active TAKE 1 Sodium TABLET BY MOUTH EVERY DAY Citalopram [facility] 93061634261 20 Active TAKE 1 Hydrobromide TABLET BY MOUTH EVERY DAY Meclizine HCl [facility] 62714767209 25 Active CHEW AND SWALLOW 1 TABLET THREE TIMES DAILY Citalopram [facility] 94581366946 20 MG Orally Active 1 tablet Hydrobromide Once a day Coumadin [facility] 73372297884 2 MG Orally Active 1 tablet Once a day Lipitor [facility] 38049158503 40 MG Active 1 TAB(S) ONCE A DAY ORALLY Chlorthalidone [facility] 20864358859 25 MG Orally Inactive 1 tablet Once a day in the morning with food Flonase Allergy [facility] 23789552775 50 MCG/ACT Active 1 spray in Relief Nasally Once a each day nostril Protonix [facility] 37451559775 40 MG Active 1 TAB(S) ONCE A DAY ORALLY BD Pen Needle [facility] 18318153681 0 Active USE DAILY Short U/F Results No Known Results Summary Purpose eClinicalWorks Submission
--- OUTSIDE RECORDS SUMMARY | 2018-06-13 05:54 | XMS REPORT ---
[...] Status Dosage System Date Date FreeStyle Lite [facility] 27765917990 0 Active CHECK Test BLOOD SUGAR TWICE DAILY Lipitor [facility] 03461150017 40 MG Active 1 TAB(S) ONCE A DAY ORALLY Losartan [facility] 80843815967 100 MG Orally Active 1 tablet Potassium Once a day Meclizine HCl [facility] 10036049710 25 Active CHEW AND SWALLOW 1 TABLET THREE TIMES DAILY Flonase Allergy [facility] 24823255474 50 MCG/ACT Active 1 spray in Relief Nasally Once a each day nostril Ferrous Sulfate [facility] 00087640676 325 (65 Fe) MG Active 1 tablet Orally Once a day Tresiba FlexTouch [facility] 38843559461 200 UNIT/ML Active 70 UNITS Subcutaneous DAILY Increase 2 untis after 3 day if BS are high Citalopram [facility] 52309062605 20 MG Orally Active 1 tablet Hydrobromide Once a day Chlorthalidone [facility] 58498297689 25 MG Orally Active 1 tablet Once a day in the morning with food Tresiba FlexTouch [facility] 95262966435 200 UNIT/ML Active not Subcutaneous defined Anastrozole [facility] 54716063386 1 MG Orally Active 1 tablet Once a day Topamax [facility] 60398149411 50 MG Orally Active 1 tablet Once a day Protonix [facility] 03553359319 40 MG Active 1 TAB(S) ONCE A DAY ORALLY Lipitor [facility] 24936287418 40 MG Orally Active 1 tablet Once a day Coumadin [facility] 50473590955 2 MG Orally Active 1 tablet Once a day BD Pen Needle [facility] 08062415767 0 Active USE DAILY Short U/F Citalopram [facility] 97973102786 20 Active TAKE 1 Hydrobromide TABLET BY MOUTH EVERY DAY Protonix [facility] 46640422890 40 MG Orally Active 1 tablet Once a day Results No Known Results Summary Purpose eClinicalWorks Submission
--- OUTSIDE RECORDS SUMMARY | 2018-06-13 05:54 | XMS REPORT ---
:1940 Author Organization eClinicalWorks Care Team Providers Name Role Phone Valentín [facility] Provider Role Unavailable Allergies No Known Allergies [...] Start End Date Status Dosage System Date [facility] 73058620310 - Oct 11, Active as directed Lancets 2018 Results No Known Results Summary Purpose eClinicalQio Submission
--- OUTSIDE RECORDS SUMMARY | 2018-06-13 05:55 | XMS REPORT ---
[...] Status Dosage System Date Date Anastrozole ND 14399135718 1 MG Orally Active 1 tablet Once a day Protonix ND 63230129623 40 MG Orally Active 1 tablet Once a day Flonase Allergy ND 30374865090 50 MCG/ACT Active 1 spray in Relief Nasally Once a each day nostril Citalopram ND 07452178167 20 MG Orally Active 1 tablet Hydrobromide Once a day Furosemide ND 24275631897 20 MG Orally Active 1 tablet Once a day Lipitor [facility] 73375979584 40 Active 1 TAB(S) ONCE A DAY ORALLY Coumadin [facility] 24176435359 2 MG Orally Active 1 tablet Once a day BD Pen Needle [facility] 06809356982 0 Active USE DAILY Short U/F Lyrica [facility] 39859408642 50 MG Orally Active 1 capsule Twice a day Lasix [facility] 56158830221 40 MG Orally Active 1 tablet Twice a day PRN for edema Meclizine HCl [facility] 50093929218 25 Active TAKE 1 TABLET BY MOUTH THREE TIMES DAILY FreeStyle Lite [facility] 46136187247 0 Active CHECK BLOOD Test SUGAR TWICE DAILY Tresiba [facility] 07234715389 200 UNIT/ML Active INJECT 70 FlexTouch UNITS UNDER THE SKIN EVERY DAY INCREASE 2 UNITS AFTER 3 DAYS IF BLOOD SUGAR IS HIGH Lipitor [facility] 74706785585 40 MG Orally Active 1 tablet Once a day Tresiba [facility] 02817522508 200 UNIT/ML Active not defined FlexTouch Subcutaneous Pantoprazole [facility] 29191962471 40 Active TAKE 1 Sodium TABLET BY MOUTH EVERY DAY HydrALAZINE HCl [facility] 02588687465 25 Orally Two Active 1 tablet times a day with food Ferrous Sulfate [facility] 01739272142 325 (65 Fe) MG Active 1 tablet Orally Once a day Topamax [facility] 88300533259 50 MG Orally Active 1 tablet Once a day FreeStyle [facility] 84556210778 - Oct 11, Active as directed Lancets 2018 Results No Known Results Summary Purpose eClinicalWorks Submission
--- OUTSIDE RECORDS SUMMARY | 2018-06-13 05:55 | XMS REPORT ---
[...] Status Dosage System Date Date HydrALAZINE HCl [facility] 90273056200 25 Orally Two Active 1 tablet times a day with food Flonase Allergy [facility] 97505163498 50 MCG/ACT Active 1 spray in Relief Nasally Once a each day nostril Topamax [facility] 46004258804 50 MG Orally Active 1 tablet Once a day Tresiba [facility] 82622797947 200 UNIT/ML Active not defined FlexTouch Subcutaneous FreeStyle [facility] 56049630279 - Oct 11, Active as directed Lancets 2018 Anastrozole [facility] 66581658594 1 MG Orally Active 1 tablet Once a day BD Pen Needle [facility] 48658836226 0 Active USE DAILY Short U/F Lyrica [facility] 20771735965 50 MG Orally Active 1 capsule Twice a day Meclizine HCl [facility] 55924760873 25 Active TAKE 1 TABLET BY MOUTH THREE TIMES DAILY Coumadin [facility] 69926643769 2 MG Orally Active 1 tablet Once a day Tresiba [facility] 28976836016 200 UNIT/ML Active INJECT 70 FlexTouch UNITS UNDER THE SKIN EVERY DAY INCREASE 2 UNITS AFTER 3 DAYS IF BLOOD SUGAR IS HIGH FreeStyle Lite [facility] 99166565967 0 Active CHECK BLOOD Test SUGAR TWICE DAILY Protonix [facility] 22607538459 40 MG Orally Active 1 tablet Once a day Citalopram [facility] 25107132752 20 MG Orally Active 1 tablet Hydrobromide Once a day Lipitor [facility] 71880909966 40 Active 1 TAB(S) ONCE A DAY ORALLY Lipitor [facility] 35387635741 40 MG Orally Active 1 tablet Once a day Lasix [facility] 37684681720 40 MG Orally Active 1 tablet Twice a day PRN for edema Ferrous Sulfate [facility] 85303777201 325 (65 Fe) MG Active 1 tablet Orally Once a day Pantoprazole [facility] 65247026006 40 Active TAKE 1 Sodium TABLET BY MOUTH EVERY DAY Results No Known Results Summary Purpose eClinicalWorks Submission
--- OUTSIDE RECORDS SUMMARY | 2018-06-13 05:55 | XMS REPORT ---
:1940 Author Organization eClinicalWorks Care Team Providers Name Role Phone Valentín [facility] Provider Role Unavailable Allergies No Known Allergies [...] Status Dosage System Date Date Ferrous Sulfate [facility] 38903581443 325 (65 Fe) MG Active 1 tablet Orally Once a day FreeStyle Lite [facility] 60182042419 0 Active CHECK BLOOD Test SUGAR TWICE DAILY Citalopram [facility] 60803548461 20 Active TAKE 1 Hydrobromide TABLET BY MOUTH EVERY DAY Meclizine HCl [facility] 64059280292 25 Active CHEW AND SWALLOW 1 TABLET THREE TIMES DAILY Lipitor ND 82939387694 40 MG Orally Active 1 tablet Once a day Flonase Allergy ND 45239055402 50 MCG/ACT Active 1 spray in Relief Nasally Once a each day nostril Pantoprazole [facility] 85679880880 40 Active TAKE 1 Sodium TABLET BY MOUTH EVERY DAY FreeStyle [facility] 03700154594 - Oct 11, Active as directed Lancets 2018 HydrALAZINE HCl [facility] 49062275791 25 MG Orally Active 1 tablet Two times a day with food Lyrica [facility] 77035197266 50 MG Orally Oct 30, Active 1 capsule Twice a day 2017 BD Pen Needle [facility] 49863009042 0 Active USE DAILY Short U/F Anastrozole [facility] 46381579890 1 MG Orally Active 1 tablet Once a day Topamax [facility] 31756580717 50 MG Orally Active 1 tablet Once a day Coumadin [facility] 07539714641 2 MG Orally Active 1 tablet Once a day Tresiba [facility] 07414530497 200 UNIT/ML Active INJECT 70 FlexTouch UNITS UNDER THE SKIN EVERY DAY INCREASE 2 UNITS AFTER 3 DAYS IF BLOOD SUGAR IS HIGH Results No Known Results Summary Purpose eClinicalWorks Submission
--- OUTSIDE RECORDS SUMMARY | 2018-06-13 05:55 | XMS REPORT ---
[...] End Status Dosage System Date Date Pantoprazole [facility] 43018429774 40 Active TAKE 1 Sodium TABLET BY MOUTH EVERY DAY Lipitor [facility] 13850889040 40 MG Orally Active 1 tablet Once a day Citalopram [facility] 58164546312 20 Active TAKE 1 Hydrobromide TABLET BY MOUTH EVERY DAY Lasix [facility] 77066378291 40 MG Orally Feb 13, Active 1 tablet Twice a day PRN 2019 for edema Losartan [facility] 05353743728 100 MG Orally Inactive 1 tablet Potassium Once a day Flonase Allergy [facility] 53961339018 50 MCG/ACT Active 1 spray in Relief Nasally Once a each day nostril Citalopram [facility] 03974350931 20 MG Orally Active 1 tablet Hydrobromide Once a day Lipitor [facility] 60274591267 40 Active 1 TAB(S) ONCE A DAY ORALLY Anastrozole [facility] 30787321523 1 MG Orally Feb 08, Active 1 tablet Once a day 2019 FreeStyle Lite [facility] 78093441728 0 Active CHECK Test BLOOD SUGAR TWICE DAILY Protonix [facility] 19951939209 40 MG Orally Active 1 tablet Once a day BD Pen Needle [facility] 33660084225 0 Active USE DAILY Short U/F Tresiba [facility] 09692199397 200 UNIT/ML Active INJECT 70 FlexTouch UNITS UNDER THE SKIN EVERY DAY INCREASE 2 UNITS AFTER 3 DAYS IF BLOOD SUGAR IS HIGH Coumadin [facility] 09573794724 2 MG Orally Active 1 tablet Once a day Ferrous Sulfate [facility] 00288810599 325 (65 Fe) MG Active 1 tablet Orally Once a day Meclizine HCl [facility] 96397867603 25 Active TAKE 1 TABLET BY MOUTH THREE TIMES DAILY HydrALAZINE HCl [facility] 55113968859 25 Orally Two Active 1 tablet times a day with food Topamax [facility] 06981848833 50 MG Orally Active 1 tablet Once a day FreeStyle [facility] 25245566074 - Oct 11, Active as Lancets 2018 directed Lyrica [facility] 11031743748 50 MG Orally Active 1 capsule Twice a day Lyrica [facility] 66862859157 50 Active TAKE 1 CAPSULE BY MOUTH TWICE DAILY HydrALAZINE HCl [facility] 80759273907 25 Orally Two Active 1 tablet times a day with food Tresiba [facility] 31917644985 200 UNIT/ML Active not FlexTouch Subcutaneous defined Results No Known Results Summary Purpose eClinicalWorks Submission
--- OUTSIDE RECORDS SUMMARY | 2018-06-13 05:56 | XMS REPORT ---
[...] End Status Dosage System Date Date Tresiba [facility] 08211032999 200 UNIT/ML Active not defined FlexTouch Subcutaneous Coumadin [facility] 33192875355 2 MG Orally Active 1 tablet Once a day Ferrous Sulfate [facility] 27560624879 325 (65 Fe) MG Active 1 tablet Orally Once a day Protonix [facility] 95350449720 40 MG Orally Active 1 tablet Once a day BD Pen Needle [facility] 67864129157 0 Active USE DAILY Short U/F Lasix [facility] 93147315281 40 MG Orally Active 1 tablet Twice a day PRN for edema Lipitor [facility] 94332428990 40 MG Orally Active 1 tablet Once a day Lipitor [facility] 76068372717 40 Active 1 TAB(S) ONCE A DAY ORALLY HydrALAZINE HCl [facility] 47602238785 25 Orally Two Active 1 tablet times a day with food Pantoprazole [facility] 69746457151 40 Active TAKE 1 Sodium TABLET BY MOUTH EVERY DAY Januvia [facility] 91440571292 100 MG Orally April Active 1 tablet Once a day 2018 Flonase Allergy [facility] 69741810402 50 MCG/ACT Active 1 spray in Relief Nasally Once a each day nostril FreeStyle Lite [facility] 27774301440 0 Active CHECK BLOOD Test SUGAR TWICE DAILY Anastrozole ND 03139936156 1 MG Orally Active 1 tablet Once a day Lyrica [facility] 36541334821 75 MG Orally Active 1 capsule Twice a day FreeStyle [facility] 85894035562 - Oct 11, Active as directed Lancets 2018 Meclizine HCl [facility] 46713505571 25 Active TAKE 1 TABLET BY MOUTH THREE TIMES DAILY Citalopram [facility] 70601369948 20 MG Orally Active 1 tablet Hydrobromide Once a day Topamax [facility] 28912338663 50 MG Orally Active 1 tablet Once a day Tresiba [facility] 41912067690 200 UNIT/ML Active INJECT 70 FlexTouch UNITS UNDER THE SKIN EVERY DAY INCREASE 2 UNITS AFTER 3 DAYS IF BLOOD SUGAR IS HIGH Results No Known Results Summary Purpose eClinicalWorks Submission
--- NOTE | 2018-06-13 07:11 | RAD REPORT ---
EXAM DESCRIPTION: RAD - Hip Right 2 View - 06/13/2018 7:01 am CLINICAL HISTORY: Fall, hip pain COMPARISON: None. FINDINGS: AP and frog-leg views of the right hip were obtained. There is no fracture or dislocation . No acute or destructive bony process seen. Mild for age degenerative change present along the supe rior acetabular rim. Dense arterial tree calcifications are present. IMPRESSION: Negative right hip examination for acute findings.
--- NOTE | 2018-06-13 07:12 | RAD REPORT ---
EXAM DESCRIPTION: RAD - Knee Right 3 View - 06/13/2018 7:01 am CLINICAL HISTORY: Fall, knee pain COMPARISON: None. FINDINGS: No fracture, dislocation or periosteal reaction.Trace amount of joint fluid seen. Mild spu rring seen along the articular margins of the patella. Minimal lateral compartment marginal spurring. Degenerative meniscal calcifications are present. Arterial tree calcifications are present. No forei gn body or other soft tissue abnormality. IMPRESSION: Degenerative change present with trace amount of fluid in the joint space. No acute bone finding. Clinical concerns for internal derangement or occult bony injury could be further assessed with MR im aging.
--- NOTE | 2018-06-13 07:20 | EDPHYS ---
Physician Documentation [facility] Name: Sarah Garcia Age: 77 yrs Sex: Female : 1940 Arrival Date: 06/13/2018 Time: 05:[address] Private MD: ED Physician Poli Juarez HPI: 06/13 06:27 This 77 yrs old Female presents to ER via Wheelchair with complaints of Fall pm1 Injury. 06:27 Details of fall: The patient fell from an upright position, while standing. Onset: The pm1 symptoms/episode began/occurred just prior to arrival. Associated injuries: The patient sustained injury to the head, contusion, pain, right knee, abrasion, pain, right hip, contusion, pain. Severity of symptoms: in the emergency department the symptoms are unchanged. [facility] and the bedside commode moved. As a result she landed on her right side. Presenting with pain to right side of forehead, right knee pain, and right hip pain. No LOC or vomiting. Historical: - Allergies: 06:06 QUINOLONES; tl1 - Home Meds: 06:06 alprazolam 0.25 mg Oral tab PRN [Active]; Altace 2.5 mg Oral cap once daily [Active]; tl1 Ambien Oral [Active]; anastrozole 1 mg Oral tab 1 tab once daily [Active]; aspirin 81 mg Oral chew 1 tab once daily [Active]; atorvastatin 40 mg Oral tab 1 tab once daily [Active]; chlorthalidone 25 mg Oral tab 1 tab once daily [Active]; citalopram 20 mg tab 1 tab once daily [Active]; ferrous sulfate 325 mg (65 mg iron) Oral tab [Active]; meclizine 25 mg Oral tab [Active]; metoprolol succinate 100 mg Oral Tb24 0.5 tab once daily [Active]; pantoprazole 40 mg Oral TbEC 1 tab once daily [Active]; sitagliptin 30mg Oral 1 tab once daily [Active]; Tresiba FlexTouch U-200 200 unit/mL (3 mL) subcutaneous inpn 58 unit nightly [Active]; Vitamin D3 Oral [Active]; warfarin 2 mg Oral tab 1 tab once daily [Active]; - PMHx: 06:06 Atrial Fib; Cancer, Breast; Diabetes - IDDM; GERD; High Cholesterol; Hypertension; tl1 Myocardial infarction; stage 4 kidney disease; - Immunization history:: Adult Immunizations up to date. - Social history:: Smoking status: Patient/guardian denies using tobacco. - Immunization history: Last tetanus immunization:. - Ebola Screening: : Patient negative for fever greater than or equal to 101.5 degrees Fahrenheit, and additional compatible Ebola Virus Disease symptoms Patient denies exposure to infectious person Patient denies travel to an Ebola-affected area in the 21 days before illness onset. ROS: 06:27 Constitutional: Negative for fever, chills, and weight loss, Eyes: Negative for injury, pm1 pain, redness, and discharge, ENT: Negative for injury, pain, and discharge, Neck: Negative for injury, pain, and swelling, Cardiovascular: Negative for chest pain, palpitations, and edema, Respiratory: Negative for shortness of breath, cough, wheezing, and pleuritic chest pain, Abdomen/GI: Negative for abdominal pain, nausea, vomiting, diarrhea, and constipation, Back: Negative for injury and pain, : Negative for injury, bleeding, discharge, and swelling. 06:27 MS/extremity: Positive for pain, of the right knee and right hip. 06:27 Skin: Positive for abrasion(s), of the right knee. 06:27 Neuro: Positive for headache, Negative for dizziness, loss of consciousness, numbness, tingling. Exam: 06:32 Constitutional: This is a well developed, well nourished patient who is awake, alert, pm1 and in no acute distress. 06:32 Eyes: Pupils equal round and reactive to light, extra-ocular motions intact. Lids and lashes normal. Conjunctiva and sclera are non-icteric and not injected. Cornea within normal limits. Periorbital areas with no swelling, redness, or edema. ENT: Nares patent. No nasal discharge, no septal abnormalities noted. Tympanic membranes are normal and external auditory canals are clear. Oropharynx with no redness, swelling, or masses, exudates, or evidence of obstruction, uvula midline. Mucous membranes moist. Neck: Trachea midline, no thyromegaly or masses palpated, and no cervical lymphadenopathy. Supple, full range of motion without nuchal rigidity, or vertebral point tenderness. No Meningismus. Chest/axilla: Normal chest wall appearance and motion. Nontender with no deformity. No lesions are appreciated. Cardiovascular: Regular rate and rhythm with a normal S1 and S2. No gallops, murmurs, or rubs. Normal PMI, no JVD. No pulse deficits. Respiratory: Lungs have equal breath sounds bilaterally, clear to auscultation and percussion. No rales, rhonchi or wheezes noted. No increased work of breathing, no retractions or nasal flaring. Abdomen/GI: Soft, non-tender, with normal bowel sounds. No distension or tympany. No guarding or rebound. No evidence of tenderness throughout. Back: No spinal tenderness. No costovertebral tenderness. Full range of motion. 06:32 Head/face: Exam is negative for winter signs, deformity, laceration(s), raccoon eyes, Noted is no obvious of injury or deformity except ecchymosis, that is mild, of the right side of forehead. 06:32 Musculoskeletal/extremity: Extremities: grossly normal except: noted in the right knee: tenderness, There is no evidence of decreased ROM, deformity, noted in the right hip: no evidence of decreased ROM, deformity, tenderness, ROM: intact in all extremities, Circulation is intact in all extremities. Sensation intact. 06:32 Skin: Appearance: normal except for affected area, injury, abrasion(s), small abrasion noted, of the right knee. 06:32 Neuro: Orientation: is normal, Motor: is normal, Sensation: is normal, no obvious gross deficits. Vital Signs: 06:08 BP 157 / 48; Pulse 70; Resp 17; Temp 97.5; Pulse Ox 96% on R/A; Weight 83.01 kg; Height tl1 4 ft. 7 in. (139.70 cm); Pain 4/10; 06:15 BP 119 / 46; Pulse 71; Resp 17; Pulse Ox 94% on R/A; Pain 4/10; tl1 06:08 Body Mass Index 42.53 (83.01 kg, 139.70 cm) tl1 Salomon Coma Score: 06:08 Eye Response: spontaneous(4). Verbal Response: oriented(5). Motor Response: obeys tl1 commands(6). Total: 15. Trauma Score (Adult): 06:08 Eye Response: spontaneous(1); Verbal Response: oriented(1); Motor Response: obeys tl1 commands(2); Systolic BP: > 89 mm Hg(4); Respiratory Rate: 10 to 29 per min(4); Salomon Score: 15; Trauma Score: 12 MDM: 06:16 Patient medically screened. pm1 06:34 Data reviewed: vital signs. Data interpreted: Pulse oximetry: on room air is 96 %. pm1 Interpretation: normal. 07:08 ED course: CT impression by radiologist: No acute intracranial findings. Mild pm1 spondylosis of cervical spine without acute findings. 07:08 ED course: X-ray of right hip and right knee negative for fracture or dislocation. pm1 07:13 Counseling: I had a detailed discussion with the patient and/or guardian regarding: the pm1 historical points, exam findings, and any diagnostic results supporting the discharge/admit diagnosis, radiology results, the need for outpatient follow up, to return to the emergency department if symptoms worsen or persist or if there are any questions or concerns that arise at home. 06/13 06:14 Order name: CT Head C Spine pm1 06/13 06:14 Order name: Hip Right 2 View XRAY; Complete Time: 07:12 pm1 06/13 06:14 Order name: Knee Right 3 View XRAY; Complete Time: 07:12 pm1 Administered Medications: 07:35 Drug: traMADol 50 mg Route: PO; ph 07:46 Follow up: Response: No adverse reaction; Medication administered at discharge. ph Disposition: 06/13/18 07:19 Discharged to Home. Impression: Superficial injury of head, Contusion of right knee, Contusion of right hip. - Condition is Stable. - Discharge Instructions: Contusion, Head Injury, Adult. - Prescriptions for Tramadol 50 mg Oral Tablet - take 1 tablet by ORAL route every 8 hours As needed as needed; 12 tablet. - Medication Reconciliation Form, Thank You Letter, Antibiotic Education, Prescription Opioid Use form. - Follow up: Emergency Department; When: As needed; Reason: Worsening of condition. Follow up: Private Physician; When: 2 - 3 days; Reason: Recheck today's complaints, Continuance of care, Re-evaluation by your physician. - Problem is new. - Symptoms have improved. Signatures: Dispatcher [employer] EDIsa Reid RN RN Magaly Dash RN RN tl1 Estee Jimenez RN RN ph Buck Parekh, MACHINE FASTENER MACHINE FASTENER pm1 Corrections: (The following items were deleted from the chart) 08:29 07:19 06/13/2018 07:19 Discharged to Home. Impression: Superficial injury of sv headContusion of right knee; Contusion of right hip. Condition is Stable. Forms are Medication Reconciliation Form, Thank You Letter, Antibiotic Education, Prescription Opioid Use. Follow up: Emergency Department; When: As needed; Reason: Worsening of condition. Follow up: Private Physician; When: 2 - 3 days; Reason: Recheck today's complaints, Continuance of care, Re-evaluation by your physician. Problem is new. Symptoms have improved. pm1
--- NOTE | 2018-06-13 07:20 | ER ---
Nurse's Notes [facility] Name: Sarah Garcia Age: 77 yrs Sex: Female : 1940 Arrival Date: 06/13/2018 Time: 05:[address] Private MD: Diagnosis: Contusion of right knee;Contusion of right hip;Superficial injury of head Presentation: 06/13 06:01 Presenting complaint: EMS states: Patient was trying to go from her wheelchair to the [facility] toilet and the wheelchair tipped over and she fell to the floor striking her right hip and right side of her head on the floor. Patient denies LOC. Transition of care: patient was not received from another setting of care. Onset of symptoms was June 13, 2018. Risk Assessment: Do you want to hurt yourself or someone else? Patient reports no desire to harm self or others. Initial Sepsis Screen: Does the patient meet any 2 criteria? No. Patient's initial sepsis screen is negative. Does the patient have a suspected source of infection? No. Patient's initial sepsis screen is negative. Care prior to arrival: None. 06:01 Method Of Arrival: Wheelchair [facility] 06:01 Acuity: CHRISS 2 [facility] 06:01 Mechanism of Injury: Fall out of chair. Trauma event details: Injury occurred in the [address], Injury occurred: at home. Injury occurred: June 13, 2018 Injury occurred at: 05:00. Trauma Activation: Alert Physician: ED Physician; Name: Buck Parekh NP; Notified At: ; Arrived At: Physician: General Surgeon; Name: ; Notified At: ; Arrived At: Physician: Radiology; Name: Martha Hernandez; Notified At: ; Arrived At: Physician: Respiratory; Name: ; Notified At: ; Arrived At: Physician: Lab; Name: ; Notified At: ; Arrived At: Historical: - Allergies: 06:06 QUINOLONES; tl1 - Home Meds: 06:06 alprazolam 0.25 mg Oral tab PRN [Active]; Altace 2.5 mg Oral cap once daily [Active]; tl1 Ambien Oral [Active]; anastrozole 1 mg Oral tab 1 tab once daily [Active]; aspirin 81 mg Oral chew 1 tab once daily [Active]; atorvastatin 40 mg Oral tab 1 tab once daily [Active]; chlorthalidone 25 mg Oral tab 1 tab once daily [Active]; citalopram 20 mg tab 1 tab once daily [Active]; ferrous sulfate 325 mg (65 mg iron) Oral tab [Active]; meclizine 25 mg Oral tab [Active]; metoprolol succinate 100 mg Oral Tb24 0.5 tab once daily [Active]; pantoprazole 40 mg Oral TbEC 1 tab once daily [Active]; sitagliptin 30mg Oral 1 tab once daily [Active]; Tresiba FlexTouch U-200 200 unit/mL (3 mL) subcutaneous inpn 58 unit nightly [Active]; Vitamin D3 Oral [Active]; warfarin 2 mg Oral tab 1 tab once daily [Active]; - PMHx: 06:06 Atrial Fib; Cancer, Breast; Diabetes - IDDM; GERD; High Cholesterol; Hypertension; tl1 Myocardial infarction; stage 4 kidney disease; - Immunization history:: Adult Immunizations up to date. - Social history:: Smoking status: Patient/guardian denies using tobacco. - Immunization history: Last tetanus immunization:. - Ebola Screening: : Patient negative for fever greater than or equal to 101.5 degrees Fahrenheit, and additional compatible Ebola Virus Disease symptoms Patient denies exposure to infectious person Patient denies travel to an Ebola-affected area in the 21 days before illness onset. Screenin:17 Abuse screen: Denies threats or abuse. Denies injuries from another. Tuberculosis tl1 screening: No symptoms or risk factors identified. 06:17 Nutritional screening: No deficits noted. Fall Risk Fall in past 12 months (25 points). tl1 Gait- Impaired (20 pts.). Primary Survey: 06:14 NO uncontrolled hemorrhage observed. A: Airway: patent. Breathing/Chest: Respiratory tl1 pattern: regular, Respiratory effort: spontaneous, unlabored, Breath sounds: clear, bilaterally. Circulation: Skin color: pink, Skin temperature: warm, dry. Disability Alert. Exposure/Environment: There is no evidence of uncontrolled external bleeding. A warming method has been applied: A warm blanket has been provided to the patient. Reassessment Airway Airway Patent Breathing/Chest Respiratory pattern Regular Respiratory effort Spontaneous Unlabored Breath sounds Clear Chest inspection Symmetrical Circulation Pulses Palpable Color Sunflower Temperature Warm Dry Disability Alert. 07:00 Reassessment Airway Airway Patent Breathing/Chest Respiratory pattern Regular hb Respiratory effort Spontaneous Unlabored Chest inspection Symmetrical Circulation Color Sunflower Temperature Warm Dry Disability Alert. 08:00 Reassessment Airway Airway Patent Breathing/Chest Respiratory pattern Regular hb Respiratory effort Spontaneous Unlabored Chest inspection Symmetrical Circulation Color Sunflower Temperature Warm Dry Disability Alert. Secondary Survey: 06:22 HEENT: Head Other pain noted to the right side of her head Face No injury/deformity tl1 Eyes: No injury or deformity noted. Ears: clear bilaterally. Nose: clear to bilateral nares. Throat: No injury or deformity noted. Gastrointestinal: Abdomen is non-distended, Bowel sounds present in all quadrants. : No signs and/or symptoms were reported regarding the genitourinary system. Musculoskeletal: Reports pain in right hip. Injury Description: Head injury sustained to right frontal area and right temporal area. Assessment: 06:26 General: Appears in no apparent distress. uncomfortable, Behavior is calm, cooperative, tl1 appropriate for age. Pain: Complains of pain in right knee and pelvis and right hip and right temporal area and right frontal area Pain currently is 4 out of 10 on a pain scale. Quality of pain is described as aching. Neuro: Level of Consciousness is awake, alert, obeys commands, Oriented to person, place, situation, [employer] are equal bilaterally Speech is normal. EENT: No signs and/or symptoms were reported regarding the EENT system. Cardiovascular: Denies chest pain. Respiratory: Airway is patent Trachea midline Respiratory effort is even, unlabored, Respiratory pattern is regular, symmetrical, Breath sounds are clear bilaterally. GI: Abdomen is non-distended, obese, Bowel sounds present X 4 quads. Abd is soft and non tender X 4 quads. : No signs and/or symptoms were reported regarding the genitourinary system. Derm: No signs and/or symptoms reported regarding the dermatologic system. Musculoskeletal: Reports pain in right knee and pelvis and right hip and right temporal area and right frontal area. Injury Description: Head injury is closed, did not have loss of consciousness. 07:46 Reassessment: Patient appears in no apparent distress at this time. Patient and/or ph family updated on plan of care and expected duration. Pain level reassessed. Patient is alert, oriented x 3, equal unlabored respirations, skin warm/dry/pink. Pt medicated for pain and up for d/c, son states, " My truck is bret high and is hard for her to get into so I'm going to call my sister and see if she can bring her car." Pt remains in bed at this time. 08:15 Reassessment: Patient appears in no apparent distress at this time. No changes from hb previously documented assessment. Patient and/or family updated on plan of care and expected duration. Pain level reassessed. Patient is alert, oriented x 3, equal unlabored respirations, skin warm/dry/pink. Vital Signs: 06:08 BP 157 / 48; Pulse 70; Resp 17; Temp 97.5; Pulse Ox 96% on R/A; Weight 83.01 kg; Height tl1 4 ft. 7 in. (139.70 cm); Pain 4/10; 06:15 BP 119 / 46; Pulse 71; Resp 17; Pulse Ox 94% on R/A; Pain 4/10; tl1 06:08 Body Mass Index 42.53 (83.01 kg, 139.70 cm) tl1 Salomon Coma Score: 06:08 Eye Response: spontaneous(4). Verbal Response: oriented(5). Motor Response: obeys tl1 commands(6). Total: 15. Trauma Score (Adult): 06:08 Eye Response: spontaneous(1); Verbal Response: oriented(1); Motor Response: obeys tl1 commands(2); Systolic BP: > 89 mm Hg(4); Respiratory Rate: 10 to 29 per min(4); Salomon Score: 15; Trauma Score: 12 ED Course: 05:59 Patient arrived in ED. tl1 06:00 Magaly Dash, MARANDA is Primary Nurse. tl1 06:02 Triage completed. tl1 06:03 Buck Parekh NP is PHCP. pm1 06:03 Poli Juarez MD is Attending Physician. pm1 06:08 Patient has correct armband on for positive identification. Bed in low position. Call tl1 light in reach. Side rails up X2. Adult w/ patient. Pulse ox on. NIBP on. Warm blanket given. 06:08 Thermoregulation: warm blanket given to patient. tl1 06:14 Arm band placed on left wrist. tl1 06:25 No provider procedures requiring assistance completed. Patient maintains SpO2 tl1 saturation greater than 95% on room air. 06:[address] via stretcher. 06:38 CT completed. Patient tolerated procedure well. Patient moved to radiology via stretcher. 06:49 CT Head C Spine In Process Unspecified. EDMS 07:02 Hip Right 2 View XRAY In Process Unspecified. EDMS 07:02 Knee Right 3 View XRAY In Process Unspecified. EDMS 08:15 Patient did not have IV access during this emergency room visit. hb Administered Medications: 07:35 Drug: traMADol 50 mg Route: PO; ph 07:46 Follow up: Response: No adverse reaction; Medication administered at discharge. ph Intake: 08:15 PO: 0ml; Total: 0ml. hb Output: 08:15 Urine: 450ml (Voided); Total: 450ml. hb Outcome: 07:19 Discharge ordered by MD. pm1 07:47 Discharged to home with family. ph 07:47 Condition: good 07:47 Discharge instructions given to patient, family, Instructed on discharge instructions, follow up and referral plans. medication usage, Demonstrated understanding of instructions, follow-up care, medications, Prescriptions given X 1. 08:25 Patient's length of stay in the Emergency Department was greater than 2 hours. awaiting hb transportation Patient's length of stay extended due to 08:29 Patient left the ED. sv Signatures: Dispatcher [employer] [facility] Isa Silva, RN RN Frankie Frances Magaly Dash, RN RN tl1 Estee Jimenez, RN RN ph Buck Parekh, NEELIMA SERVICE TESTER pm1 Martha Villanueva RN RN hb
[2018-06-13] MEDS ORDERED: TRAMADOL HCL 50 MG TAB ONE (07:44)
[2018-06-13 08:34] VITALS: TEMP 97.5
[2018-06-13 08:35] VITALS: BP 119/46; O2SAT 94
--- NOTE | 2018-06-13 11:45 | RAD REPORT ---
EXAM DESCRIPTION: CT - Head C Spine Mpr Wo Con - 06/13/2018 7:03 am CLINICAL HISTORY: The patient is 77 years old and is Female; PAIN TECHNIQUE: Axial computed tomography images of the head/brain and cervical spine without intravenous contrast. Sagittal and coronal reformatted images were created and reviewed. This CT exam was pe rformed using one or more of the following dose reduction techniques: automated exposure control, a djustment of the mA and/or kV according to patient size, and/or use of iterative reconstruction techn ique. COMPARISON: No relevant prior studies available. FINDINGS: BRAIN: There is diffuse cerebral atrophy present, consistent with this patient's age. There is patchy hypoattenuation of the deep white matter which is non-specific, but most likely owing to chronic small vessel ischemic change in a patient of this age group. No intracranial hemorrhage , mass effect, or midline shift is seen. There are no extra-axial fluid collections. VENTRICLES: Unremarkable. No ventriculomegaly. SKULL: No acute fracture. SINUSES: Unremarkable as visualized. No acute sinusitis. MASTOID AIR CELLS: Unremarkable as visualized. No mastoid effusion. VERTEBRAE: The vertebral body heights and alignment are maintained. No acute fracture. DISCS/SPINAL CANAL/NEURAL FORAMINA: Minimal intervertebral disc space narrowing distal calcifica tion is present most prominent at C5-C6 and C6-C7. Disc bulges at these levels is also noted causing mild canal narrowing. There is no significant neural foraminal narrowing however. SOFT TISSUES: The soft tissues are normal. LUNG APICES: The lung apices are clear. IMPRESSION: 1. No acute intracranial findings. 2. Mild spondylosis of the cervical spine without acute findings. Electronically signed by: Jill Oswald MD 06/13/2018 6:56 AM CDT Due to temporary technical issues with the PACS/Fluency reporting system, reports are being signed by the in house radiologist as a courtesy to ensure prompt reporting. The interpreting radiologist is f ully responsible for the content of the report.
== END 2018-06-13 08:29 | disposition home or self-care (01) ==
LOC: ER 05:51
DX: S00.90XA Unspecified superficial injury of unspecified part of head, initial encounter (principal); S80.01XA Contusion of right knee, initial encounter; S70.01XA Contusion of right hip, initial encounter; W05.0XXA Fall from non-moving wheelchair, initial encounter; I48.91 Unspecified atrial fibrillation; E78.00 Pure hypercholesterolemia, unspecified; E11.22 Type 2 diabetes mellitus with diabetic chronic kidney disease; I12.9 Hypertensive chronic kidney disease with stage 1 through stage 4 chronic kidney disease, or unspecified chronic kidney disease; N18.4 Chronic kidney disease, stage 4 (severe); Z79.82 Long term (current) use of aspirin; Z79.4 Long term (current) use of insulin
CPT/HCPCS: 70450; 72125; 99285

== ENCOUNTER 2018-06-14 11:10 | Inpatient (IN) | payer OTHER ==
--- OUTSIDE RECORDS SUMMARY | 2018-06-14 11:12 | XMS REPORT ---
:1940 Author Organization eClinicalWorks Care Team Providers Name Role Phone Laura, [facility] Provider Role Unavailable Allergies, Adverse [...] End Status Dosage System Date Date Citalopram [facility] 72054640410 20 MG Orally Active 1 tablet Hydrobromide Once a day Coumadin [place] 95292812770 2 MG Orally Active 1 tablet Once a day Lipitor ND 38594699242 40 MG Active 1 TAB(S) ONCE A DAY ORALLY Meclizine HCl ND 15964885115 25 MG Orally Active 1 tablet Three times a day Ferrous Sulfate ND 80159242701 325 (65 Fe) MG May Active 1 tablet Orally Once a 2017 day Tresiba FlexTouch ND 09568345730 200 UNIT/ML Active not Subcutaneous defined Chlorthalidone ND 73448936436 25 MG Orally Active 1 tablet Once a day in the morning with food FreeStyle Lite [facility] 05947685095 0 Active CHECK Test BLOOD SUGAR TWICE DAILY Flonase Allergy [facility] 40793759547 50 MCG/ACT Active 1 spray in Relief Nasally Once a each day nostril Meclizine HCl [facility] 35871560809 25 Active CHEW AND SWALLOW 1 TABLET THREE TIMES DAILY Anastrozole [facility] 47502195625 1 MG Orally Active 1 tablet Once a day Protonix [facility] 93590155197 40 MG Active 1 TAB(S) ONCE A DAY ORALLY Losartan [facility] 87753155480 100 MG Orally Active 1 tablet Potassium Once a day Topamax [facility] 21081838386 50 MG Orally Active 1 tablet Once a day Protonix [facility] 96896549133 40 MG Orally Active 1 tablet Once a day Tresiba FlexTouch [facility] 78772466024 200 UNIT/ML Active 40 UNITS DAILY Results No Known Results Summary Purpose eClinicalWorks Submission
--- OUTSIDE RECORDS SUMMARY | 2018-06-14 11:12 | XMS REPORT ---
:1940 [facility] Address [address] [place] [address] Care Team Providers Name Role Phone Unavailable Unavailable Unavailable Problems This patient has no known problems. Allergies, Adverse Reactions, Alerts This patient has no known allergies or adverse reactions. Medications This patient has no known medications.
--- OUTSIDE RECORDS SUMMARY | 2018-06-14 11:13 | XMS REPORT ---
[...] System Date Date Anastrozole [facility] 63512982796 1 MG Orally Active 1 tablet Once a day Lipitor [facility] 93504660810 40 MG Orally Active 1 tablet Once a day Protonix [facility] 68598218622 40 MG Orally Active 1 tablet Once a day Topamax [facility] 48217851235 50 MG Orally Active 1 tablet Once a day Ferrous Sulfate [facility] 10140423265 325 (65 Fe) MG Active 1 tablet Orally Once a day Lipitor [facility] 37457980403 40 Active 1 TAB(S) ONCE A DAY ORALLY Tresiba FlexTouch [facility] 21561926033 200 UNIT/ML Active 70 UNITS Subcutaneous DAILY Increase 2 untis after 3 day if BS are high HydrALAZINE HCl [facility] 55546925274 25 MG Orally Active 1 tablet Two times a day with food Tresiba FlexTouch [facility] 32140550237 200 UNIT/ML Active not Subcutaneous defined Tresiba FlexTouch [facility] 64612404583 200 UNIT/ML Active INJECT 70 UNITS UNDER THE SKIN EVERY DAY INCREASE 2 UNITS AFTER 3 DAYS IF BLOOD SUGAR IS HIGH FreeStyle Lite [facility] 17938993626 0 Active CHECK Test BLOOD SUGAR TWICE DAILY Losartan [facility] 21765944423 100 MG Orally Inactive 1 tablet Potassium Once a day Pantoprazole [facility] 36601928235 40 Active TAKE 1 Sodium TABLET BY MOUTH EVERY DAY Citalopram [facility] 57564657809 20 Active TAKE 1 Hydrobromide TABLET BY MOUTH EVERY DAY Meclizine HCl [facility] 32542864012 25 Active CHEW AND SWALLOW 1 TABLET THREE TIMES DAILY Citalopram [facility] 57068144910 20 MG Orally Active 1 tablet Hydrobromide Once a day Coumadin [facility] 12579935722 2 MG Orally Active 1 tablet Once a day Lipitor [facility] 36375338870 40 MG Active 1 TAB(S) ONCE A DAY ORALLY Chlorthalidone [facility] 36611340607 25 MG Orally Inactive 1 tablet Once a day in the morning with food Flonase Allergy [facility] 32257253846 50 MCG/ACT Active 1 spray in Relief Nasally Once a each day nostril Protonix [facility] 11038989526 40 MG Active 1 TAB(S) ONCE A DAY ORALLY BD Pen Needle [facility] 68337248580 0 Active USE DAILY Short U/F Results No Known Results Summary Purpose eClinicalWorks Submission
--- OUTSIDE RECORDS SUMMARY | 2018-06-14 11:13 | XMS REPORT ---
:1940 Author Organization eClinicalWorks Care Team Providers Name Role Phone Valentín [facility] Provider Role Unavailable Allergies No Known [...] End Date Status Dosage System Date [facility] 93590427190 200 UNIT/ML Active 70 UNITS FlexTouch Subcutaneous DAILY Increase 2 untis after 3 day if BS are high Results No Known Results Summary Purpose eClinicalWorks Submission
--- OUTSIDE RECORDS SUMMARY | 2018-06-14 11:13 | XMS REPORT ---
[...] Status Dosage System Date Date FreeStyle Lite [facility] 67550217043 0 Active CHECK Test BLOOD SUGAR TWICE DAILY Lipitor [facility] 47937102940 40 MG Active 1 TAB(S) ONCE A DAY ORALLY Losartan [facility] 16376846839 100 MG Orally Active 1 tablet Potassium Once a day Meclizine HCl [facility] 38397155978 25 Active CHEW AND SWALLOW 1 TABLET THREE TIMES DAILY Flonase Allergy [facility] 54979070717 50 MCG/ACT Active 1 spray in Relief Nasally Once a each day nostril Ferrous Sulfate [facility] 75537621740 325 (65 Fe) MG Active 1 tablet Orally Once a day Tresiba FlexTouch [facility] 65393415410 200 UNIT/ML Active 70 UNITS Subcutaneous DAILY Increase 2 untis after 3 day if BS are high Citalopram [facility] 05646640574 20 MG Orally Active 1 tablet Hydrobromide Once a day Chlorthalidone [facility] 86218185990 25 MG Orally Active 1 tablet Once a day in the morning with food Tresiba FlexTouch [facility] 27668333116 200 UNIT/ML Active not Subcutaneous defined Anastrozole [facility] 84475151379 1 MG Orally Active 1 tablet Once a day Topamax [facility] 80474636295 50 MG Orally Active 1 tablet Once a day Protonix [facility] 18253423005 40 MG Active 1 TAB(S) ONCE A DAY ORALLY Lipitor [facility] 95076185560 40 MG Orally Active 1 tablet Once a day Coumadin [facility] 57480848441 2 MG Orally Active 1 tablet Once a day BD Pen Needle [facility] 41418109011 0 Active USE DAILY Short U/F Citalopram [facility] 91475465225 20 Active TAKE 1 Hydrobromide TABLET BY MOUTH EVERY DAY Protonix [facility] 93213199067 40 MG Orally Active 1 tablet Once a day Results No Known Results Summary Purpose eClinicalWorks Submission
--- OUTSIDE RECORDS SUMMARY | 2018-06-14 11:14 | XMS REPORT ---
:1940 Author Organization eClinicalWorks Care Team Providers Name Role Phone Valentín [facility] Provider Role Unavailable Allergies No [...] Status Dosage System Date Date Ferrous Sulfate [facility] 38614966211 325 (65 Fe) MG Active 1 tablet Orally Once a day FreeStyle Lite [facility] 28751457313 0 Active CHECK BLOOD Test SUGAR TWICE DAILY Citalopram [facility] 59016520197 20 Active TAKE 1 Hydrobromide TABLET BY MOUTH EVERY DAY Meclizine HCl [facility] 25874916771 25 Active CHEW AND SWALLOW 1 TABLET THREE TIMES DAILY Lipitor ND 89029281762 40 MG Orally Active 1 tablet Once a day Flonase Allergy ND 68920982859 50 MCG/ACT Active 1 spray in Relief Nasally Once a each day nostril Pantoprazole [facility] 51894564809 40 Active TAKE 1 Sodium TABLET BY MOUTH EVERY DAY FreeStyle [facility] 72273786845 - Oct 11, Active as directed Lancets 2018 HydrALAZINE HCl [facility] 67088303892 25 MG Orally Active 1 tablet Two times a day with food Lyrica [facility] 17803237300 50 MG Orally Oct 30, Active 1 capsule Twice a day 2017 BD Pen Needle [facility] 23429604614 0 Active USE DAILY Short U/F Anastrozole [facility] 47503112444 1 MG Orally Active 1 tablet Once a day Topamax [facility] 72614503919 50 MG Orally Active 1 tablet Once a day Coumadin [facility] 29069893486 2 MG Orally Active 1 tablet Once a day Tresiba [facility] 31638040263 200 UNIT/ML Active INJECT 70 FlexTouch UNITS UNDER THE SKIN EVERY DAY INCREASE 2 UNITS AFTER 3 DAYS IF BLOOD SUGAR IS HIGH Results No Known Results Summary Purpose eClinicalWorks Submission
--- OUTSIDE RECORDS SUMMARY | 2018-06-14 11:14 | XMS REPORT ---
[...] Start End Date Status Dosage System Date [facility] 18986853739 - Oct 11, Active as directed Lancets 2018 Results No Known Results Summary Purpose eClinicalretsCloud Submission
--- OUTSIDE RECORDS SUMMARY | 2018-06-14 11:14 | XMS REPORT ---
[...] End Status Dosage System Date Date Pantoprazole [facility] 00119418301 40 Active TAKE 1 Sodium TABLET BY MOUTH EVERY DAY Lipitor [facility] 43768749404 40 MG Orally Active 1 tablet Once a day Citalopram [facility] 99737099115 20 Active TAKE 1 Hydrobromide TABLET BY MOUTH EVERY DAY Lasix [facility] 52379535246 40 MG Orally Feb 13, Active 1 tablet Twice a day PRN 2019 for edema Losartan [facility] 78517957240 100 MG Orally Inactive 1 tablet Potassium Once a day Flonase Allergy [facility] 89524894940 50 MCG/ACT Active 1 spray in Relief Nasally Once a each day nostril Citalopram [facility] 97783910715 20 MG Orally Active 1 tablet Hydrobromide Once a day Lipitor [facility] 13293262197 40 Active 1 TAB(S) ONCE A DAY ORALLY Anastrozole [facility] 35579146415 1 MG Orally Feb 08, Active 1 tablet Once a day 2019 FreeStyle Lite [facility] 97480075311 0 Active CHECK Test BLOOD SUGAR TWICE DAILY Protonix [facility] 31936196771 40 MG Orally Active 1 tablet Once a day BD Pen Needle [facility] 69642296146 0 Active USE DAILY Short U/F Tresiba [facility] 50842076549 200 UNIT/ML Active INJECT 70 FlexTouch UNITS UNDER THE SKIN EVERY DAY INCREASE 2 UNITS AFTER 3 DAYS IF BLOOD SUGAR IS HIGH Coumadin [facility] 68941071082 2 MG Orally Active 1 tablet Once a day Ferrous Sulfate [facility] 95738657720 325 (65 Fe) MG Active 1 tablet Orally Once a day Meclizine HCl [facility] 16065110277 25 Active TAKE 1 TABLET BY MOUTH THREE TIMES DAILY HydrALAZINE HCl [facility] 95776781854 25 Orally Two Active 1 tablet times a day with food Topamax [facility] 82315892235 50 MG Orally Active 1 tablet Once a day FreeStyle [facility] 90058692674 - Oct 11, Active as Lancets 2018 directed Lyrica [facility] 02218344723 50 MG Orally Active 1 capsule Twice a day Lyrica [facility] 49032055357 50 Active TAKE 1 CAPSULE BY MOUTH TWICE DAILY HydrALAZINE HCl [facility] 08845578809 25 Orally Two Active 1 tablet times a day with food Tresiba [facility] 88545573794 200 UNIT/ML Active not FlexTouch Subcutaneous defined Results No Known Results Summary Purpose eClinicalWorks Submission
--- OUTSIDE RECORDS SUMMARY | 2018-06-14 11:15 | XMS REPORT ---
[...] Status Dosage System Date Date HydrALAZINE HCl [facility] 53166041195 25 Orally Two Active 1 tablet times a day with food Flonase Allergy [facility] 43896974876 50 MCG/ACT Active 1 spray in Relief Nasally Once a each day nostril Topamax [facility] 22522139939 50 MG Orally Active 1 tablet Once a day Tresiba [facility] 09697450272 200 UNIT/ML Active not defined FlexTouch Subcutaneous FreeStyle [facility] 72153707356 - Oct 11, Active as directed Lancets 2018 Anastrozole [facility] 38622296721 1 MG Orally Active 1 tablet Once a day BD Pen Needle [facility] 14044234407 0 Active USE DAILY Short U/F Lyrica [facility] 07678047025 50 MG Orally Active 1 capsule Twice a day Meclizine HCl [facility] 39891832805 25 Active TAKE 1 TABLET BY MOUTH THREE TIMES DAILY Coumadin [facility] 85147831333 2 MG Orally Active 1 tablet Once a day Tresiba [facility] 35545203458 200 UNIT/ML Active INJECT 70 FlexTouch UNITS UNDER THE SKIN EVERY DAY INCREASE 2 UNITS AFTER 3 DAYS IF BLOOD SUGAR IS HIGH FreeStyle Lite [facility] 17057674432 0 Active CHECK BLOOD Test SUGAR TWICE DAILY Protonix [facility] 60177064002 40 MG Orally Active 1 tablet Once a day Citalopram [facility] 11219686124 20 MG Orally Active 1 tablet Hydrobromide Once a day Lipitor [facility] 10799082930 40 Active 1 TAB(S) ONCE A DAY ORALLY Lipitor [facility] 40216465157 40 MG Orally Active 1 tablet Once a day Lasix [facility] 11485032962 40 MG Orally Active 1 tablet Twice a day PRN for edema Ferrous Sulfate [facility] 74963660375 325 (65 Fe) MG Active 1 tablet Orally Once a day Pantoprazole [facility] 26783951681 40 Active TAKE 1 Sodium TABLET BY MOUTH EVERY DAY Results No Known Results Summary Purpose eClinicalWorks Submission
--- OUTSIDE RECORDS SUMMARY | 2018-06-14 11:15 | XMS REPORT ---
[...] End Status Dosage System Date Date Tresiba [facility] 99381435221 200 UNIT/ML Active not defined FlexTouch Subcutaneous Coumadin [facility] 42427602366 2 MG Orally Active 1 tablet Once a day Ferrous Sulfate [facility] 18873687314 325 (65 Fe) MG Active 1 tablet Orally Once a day Protonix [facility] 35645935279 40 MG Orally Active 1 tablet Once a day BD Pen Needle [facility] 30906619822 0 Active USE DAILY Short U/F Lasix [facility] 82712855829 40 MG Orally Active 1 tablet Twice a day PRN for edema Lipitor [facility] 63450191142 40 MG Orally Active 1 tablet Once a day Lipitor [facility] 86364442861 40 Active 1 TAB(S) ONCE A DAY ORALLY HydrALAZINE HCl [facility] 50148216683 25 Orally Two Active 1 tablet times a day with food Pantoprazole [facility] 14530823471 40 Active TAKE 1 Sodium TABLET BY MOUTH EVERY DAY Januvia [facility] 02949331427 100 MG Orally April Active 1 tablet Once a day 2018 Flonase Allergy [facility] 16278824798 50 MCG/ACT Active 1 spray in Relief Nasally Once a each day nostril FreeStyle Lite [facility] 86397585683 0 Active CHECK BLOOD Test SUGAR TWICE DAILY Anastrozole ND 57921807589 1 MG Orally Active 1 tablet Once a day Lyrica [facility] 78595741634 75 MG Orally Active 1 capsule Twice a day FreeStyle [facility] 96971764625 - Oct 11, Active as directed Lancets 2018 Meclizine HCl [facility] 42081173594 25 Active TAKE 1 TABLET BY MOUTH THREE TIMES DAILY Citalopram [facility] 52644112789 20 MG Orally Active 1 tablet Hydrobromide Once a day Topamax [facility] 76344186148 50 MG Orally Active 1 tablet Once a day Tresiba [facility] 53390921787 200 UNIT/ML Active INJECT 70 FlexTouch UNITS UNDER THE SKIN EVERY DAY INCREASE 2 UNITS AFTER 3 DAYS IF BLOOD SUGAR IS HIGH Results No Known Results Summary Purpose eClinicalWorks Submission
--- OUTSIDE RECORDS SUMMARY | 2018-06-14 11:15 | XMS REPORT ---
[...] Status Dosage System Date Date Anastrozole ND 83987518226 1 MG Orally Active 1 tablet Once a day Protonix ND 62529384895 40 MG Orally Active 1 tablet Once a day Flonase Allergy ND 26608451237 50 MCG/ACT Active 1 spray in Relief Nasally Once a each day nostril Citalopram ND 81143084512 20 MG Orally Active 1 tablet Hydrobromide Once a day Furosemide ND 89780802687 20 MG Orally Active 1 tablet Once a day Lipitor [facility] 67838140573 40 Active 1 TAB(S) ONCE A DAY ORALLY Coumadin [facility] 00263529922 2 MG Orally Active 1 tablet Once a day BD Pen Needle [facility] 54483401219 0 Active USE DAILY Short U/F Lyrica [facility] 69057121661 50 MG Orally Active 1 capsule Twice a day Lasix [facility] 63507456017 40 MG Orally Active 1 tablet Twice a day PRN for edema Meclizine HCl [facility] 40962795073 25 Active TAKE 1 TABLET BY MOUTH THREE TIMES DAILY FreeStyle Lite [facility] 48875770181 0 Active CHECK BLOOD Test SUGAR TWICE DAILY Tresiba [facility] 06900093802 200 UNIT/ML Active INJECT 70 FlexTouch UNITS UNDER THE SKIN EVERY DAY INCREASE 2 UNITS AFTER 3 DAYS IF BLOOD SUGAR IS HIGH Lipitor [facility] 63243189838 40 MG Orally Active 1 tablet Once a day Tresiba [facility] 54217155505 200 UNIT/ML Active not defined FlexTouch Subcutaneous Pantoprazole [facility] 73927390133 40 Active TAKE 1 Sodium TABLET BY MOUTH EVERY DAY HydrALAZINE HCl [facility] 09270131292 25 Orally Two Active 1 tablet times a day with food Ferrous Sulfate [facility] 66923080002 325 (65 Fe) MG Active 1 tablet Orally Once a day Topamax [facility] 53628780527 50 MG Orally Active 1 tablet Once a day FreeStyle [facility] 31722933779 - Oct 11, Active as directed Lancets 2018 Results No Known Results Summary Purpose eClinicalWorks Submission
[2018-06-14 13:11] LABS: Absolute Lymphocytes (CBC) 2.3 K/uL (0.7-4.9); Basophils % 0.7 % (0-1.3); Eosinophils % 2.3 % (0-4.4); Hematocrit 34.4 % (36.0-45.0); Lymphocytes % 26.4 % (15.3-44.8); MPV 9.5 fL (7.6-11.3); RBC Red Blood Cell Count 3.68 M/uL (3.86-4.86)
[2018-06-14 13:25] LABS: Albumin 3.2 g/dL (3.4-5.0); Bilirubin Total 0.4 mg/dL (0.2-1.0); Potassium 4.2 mmol/L (3.5-5.1); Protein, Total 7.4 g/dL (6.4-8.2)
--- NOTE | 2018-06-14 13:34 | RAD REPORT ---
EXAM DESCRIPTION: RAD - Chest Single View - 06/14/2018 1:28 pm CLINICAL HISTORY: Weakness Chest pain. COMPARISON: Chest Single View dated 02/22/2018; Chest Single View dated 02/20/2018; Abdomen 1 View ([facility]) dated 02/19/2018; Chest Single View dated 02/19/2018 FINDINGS: Portable technique limits examination quality. Mild interstitial pulmonary edema suspected. The heart is mildly to moderately enlarged. No displaced fractures. IMPRESSION: Mild CHF.
[2018-06-14] MEDS ORDERED: NA CHLORIDE 0.9% 1,000 ML ONE (14:18)
--- NOTE | 2018-06-14 14:41 | EKG ---
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
[2018-06-14 15:23] LABS: Urine Blood 1+ (NEG); Urine Glucose 1+ (NEG); Urine Protein 1+ (NEG)
--- NOTE | 2018-06-14 15:27 | ER ---
Nurse's Notes [facility] Name: Sarah Garcia Age: 77 yrs Sex: Female : 1940 Arrival Date: 06/14/2018 Time: 11:14 Bed 18 Private MD: Diagnosis: Acute kidney failure;Urinary tract infection, site not specified Presentation: 06/14 11:20 Presenting complaint: EMS states: called out for weakness, BGL 260, was seen here em yesterday for a fall, everything was ok and sent home. Transition of care: patient was not received from another setting of care. Onset of symptoms was June 13, 2018. Risk Assessment: Do you want to hurt yourself or someone else? Patient reports no desire to harm self or others. Initial Sepsis Screen: Does the patient meet any 2 criteria? No. Patient's initial sepsis screen is negative. Does the patient have a suspected source of infection? No. Patient's initial sepsis screen is negative. Care prior to arrival: None. 11:20 Method Of Arrival: EMS: [facility] em 11:27 Acuity: CHRISS 3 iw Historical: - Allergies: 11:26 QUINOLONES; em - Home Meds: 11:26 alprazolam 0.25 mg Oral tab PRN [Active]; Altace 2.5 mg Oral cap once daily [Active]; em Ambien Oral [Active]; anastrozole 1 mg Oral tab 1 tab once daily [Active]; aspirin 81 mg Oral chew 1 tab once daily [Active]; atorvastatin 40 mg Oral tab 1 tab once daily [Active]; chlorthalidone 25 mg Oral tab 1 tab once daily [Active]; citalopram 20 mg tab 1 tab once daily [Active]; ferrous sulfate 325 mg (65 mg iron) Oral tab [Active]; meclizine 25 mg Oral tab [Active]; metoprolol succinate 100 mg Oral Tb24 0.5 tab once daily [Active]; pantoprazole 40 mg Oral TbEC 1 tab once daily [Active]; sitagliptin 30mg Oral 1 tab once daily [Active]; Tresiba FlexTouch U-200 200 unit/mL (3 mL) subcutaneous inpn 58 unit nightly [Active]; Vitamin D3 Oral [Active]; warfarin 2 mg Oral tab 1 tab once daily [Active]; - PMHx: 11:26 Atrial Fib; Cancer, Breast; Diabetes - IDDM; GERD; High Cholesterol; Hypertension; em Myocardial infarction; stage 4 kidney disease; - Immunization history:: Adult Immunizations up to date. - Social history:: Smoking status: Patient/guardian denies using tobacco. - Ebola Screening: : Patient negative for fever greater than or equal to 101.5 degrees Fahrenheit, and additional compatible Ebola Virus Disease symptoms Patient denies exposure to infectious person Patient denies travel to an Ebola-affected area in the 21 days before illness onset No symptoms or risks identified at this time. Screenin:20 Abuse screen: Denies threats or abuse. Nutritional screening: No deficits noted. em Tuberculosis screening: No symptoms or risk factors identified. Fall Risk Fall in past 12 months (25 points). Ambulatory Aid- Crutches/Cane/Walker (15 pts). Gait- Weak (10 pts.). Mental Status- Total Lutz Fall Scale indicates High Risk Score (45 or more points). Side Rails Up X 2 Placed Close to Nursing Station Frequent Obs/Assessments Occuring. Assessment: 11:29 Pain: Complains of pain in right knee Pain currently is 3 out of 10 on a pain scale. em Neuro: Level of Consciousness is awake, alert, obeys commands, Oriented to person, place, time, situation, Reports weakness Denies dizziness, paresthesias. Cardiovascular: Capillary refill < 3 seconds Patient's skin is warm and dry. Rhythm is regular. Respiratory: Airway is patent Respiratory effort is even, unlabored, Respiratory pattern is regular, symmetrical. : Denies burning with urination. Derm: Skin is intact, is healthy with good turgor, Skin is pink, warm \T\ dry. Musculoskeletal: Capillary refill < 3 seconds, Range of motion: intact in all extremities. 11:32 Reassessment: I agree with previous assessment. hb 11:35 Reassessment: The previous assessment is accurate, call light remains within reach. ss 13:00 Reassessment: Patient appears in no apparent distress at this time. Patient and/or em family updated on plan of care and expected duration. Pain level reassessed. Patient is alert, oriented x 3, equal unlabored respirations, skin warm/dry/pink. 14:26 Reassessment: Patient appears in no apparent distress at this time. Patient and/or em family updated on plan of care and expected duration. Pain level reassessed. Patient is alert, oriented x 3, equal unlabored respirations, skin warm/dry/pink. family at bedside. 16:32 Reassessment: Patient appears in no apparent distress at this time. Patient and/or em family updated on plan of care and expected duration. Pain level reassessed. Patient is alert, oriented x 3, equal unlabored respirations, skin warm/dry/pink. Patient states feeling better. Vital Signs: 11:29 BP 136 / 53; Pulse 74; Resp 14; Temp 98.3; Pulse Ox 91% on R/A; Weight 78.47 kg; Height em 5 ft. 0 in. (152.40 cm); Pain 3/10; 12:23 BP 125 / 48; Pulse 67; Resp 16; Temp 98.2; Pulse Ox 98% on 2 lpm NC; em 14:00 BP 110 / 65; Pulse 66; Resp 18; Pulse Ox 99% on 2 lpm NC; em 15:00 BP 118 / 68; Pulse 52; Resp 18; Pulse Ox 99% on 2 lpm NC; em 15:58 BP 126 / 48; Pulse 72; Resp 18; Pulse Ox 100% on 2 lpm NC; em 11:29 Body Mass Index 33.79 (78.47 kg, 152.40 cm) em ED Course: 11:14 Patient arrived in ED. em 11:15 Buck Parekh NP is PHCP. pm1 11:15 Pankaj Hung MD is Attending Physician. pm1 11:20 Edy Orta LVN is Primary Nurse. em 11:20 Patient has correct armband on for positive identification. Bed in low position. Call em light in reach. youth nutritional monitor on. Pulse ox on. NIBP on. 11:27 Triage completed. iw 11:29 Arm band placed on. em 11:29 Maintain EMS IV. Dressing intact. Good blood return noted. Site clean \T\ dry. Gauge \T\ em site: 20 L hand. 12:55 EKG done, by neurology tech. reviewed by Buck Parekh NP. at1 13:29 Chest Single View XRAY In Process Unspecified. EDMS 15:26 Wendy Laura MD is Hospitalizing Provider. pm1 16:31 No provider procedures requiring assistance completed. Patient admitted, IV remains in em place. Administered Medications: 14:26 Drug: NS 0.9% 500 ml Route: IV; Rate: bolus; Site: left hand; em 16:34 Follow up: IV Status: Completed infusion; IV Intake: 500ml em 14:27 Drug: NS 0.9% 1000 ml Route: IV; Rate: 100 ml/hr; Site: left hand; em 16:33 Follow up: IV Status: Completed infusion; IV Intake: 100ml em Point of Care Testing: Blood Glucose: 12:23 Blood Glucose: 291 mg/dL; em Ranges: Intake: 16:33 IV: 100ml; Total: 100ml. em 16:34 IV: 500ml; Total: 600ml. em Outcome: 15:27 Decision to Hospitalize by Provider. pm1 16:31 Admitted to Tele accompanied by tech, via stretcher, room 405, with oxygen, with chart, em Report called to MARANDA Roldan 16:31 Condition: good 16:31 Instructed on the need for admit, Demonstrated understanding of instructions. 16:34 Patient left the ED. em Signatures: Dispatcher [employer] EDMS Edy Orta, CAR TRIMMER CAR TRIMMER em Lucero Gates RN RN iw Smirch, Shelby, RN RN ss Rita Joaquin, certified residential medication aide EKG Tat1 Buck Parekh, CORPORATE PILOT CORPORATE PILOT pm1 Martha Villanueva RN RN hb Corrections: (The following items were deleted from the chart) 16:01 14:00 BP 110 / 65; Pulse 66bpm; Resp 18bpm; Pulse Ox 99% RA; em em
--- NOTE | 2018-06-14 15:27 | EDPHYS ---
Physician Documentation [facility] Name: Sarah Garcia Age: 77 yrs Sex: Female : 1940 Arrival Date: 06/14/2018 Time: 11:14 Bed 18 Private MD: ED Physician Pankaj Hung HPI: 06/14 15:08 This 77 yrs old Female presents to ER via EMS with complaints of Weakness. pm1 15:08 The patient presents to the emergency department with weakness of the entire body, pm1 generalized weakness. Onset: The symptoms/episode began/occurred yesterday. Context: occurred at home. Associated signs and symptoms: Pertinent negatives: altered mental status, chills, fever, headache, chest pain, shortness of breath, dysuria. Severity of symptoms: in the emergency department the symptoms are unchanged. Patient's baseline: Neuro: alert and fully oriented, Motor: no deficits, Ambulation: walks with assist only, uses walker, Speech: normal. The patient has been recently seen at the [facility], yesterday, for unrelated complaints, Patient with fall injury yesterday. Patient was transferring from wheelchair to bedside commode. Bedside commode moved and the patient fell resulting in superficial injury to head, abrasion to right knee, and contusion to right knee and right hip. Patient has not been moving since her injury yesterday. Patient has been lying in bed since getting home. Historical: - Allergies: 11:26 QUINOLONES; em - Home Meds: 11:26 alprazolam 0.25 mg Oral tab PRN [Active]; Altace 2.5 mg Oral cap once daily [Active]; em Ambien Oral [Active]; anastrozole 1 mg Oral tab 1 tab once daily [Active]; aspirin 81 mg Oral chew 1 tab once daily [Active]; atorvastatin 40 mg Oral tab 1 tab once daily [Active]; chlorthalidone 25 mg Oral tab 1 tab once daily [Active]; citalopram 20 mg tab 1 tab once daily [Active]; ferrous sulfate 325 mg (65 mg iron) Oral tab [Active]; meclizine 25 mg Oral tab [Active]; metoprolol succinate 100 mg Oral Tb24 0.5 tab once daily [Active]; pantoprazole 40 mg Oral TbEC 1 tab once daily [Active]; sitagliptin 30mg Oral 1 tab once daily [Active]; Tresiba FlexTouch U-200 200 unit/mL (3 mL) subcutaneous inpn 58 unit nightly [Active]; Vitamin D3 Oral [Active]; warfarin 2 mg Oral tab 1 tab once daily [Active]; - PMHx: 11:26 Atrial Fib; Cancer, Breast; Diabetes - IDDM; GERD; High Cholesterol; Hypertension; em Myocardial infarction; stage 4 kidney disease; - Immunization history:: Adult Immunizations up to date. - Social history:: Smoking status: Patient/guardian denies using tobacco. - Ebola Screening: : Patient negative for fever greater than or equal to 101.5 degrees Fahrenheit, and additional compatible Ebola Virus Disease symptoms Patient denies exposure to infectious person Patient denies travel to an Ebola-affected area in the 21 days before illness onset No symptoms or risks identified at this time. ROS: 15:17 Constitutional: Negative for fever, chills, and weight loss, Eyes: Negative for injury, pm1 pain, redness, and discharge, ENT: Negative for injury, pain, and discharge, Neck: Negative for injury, pain, and swelling, Cardiovascular: Negative for chest pain, palpitations, and edema, Respiratory: Negative for shortness of breath, cough, wheezing, and pleuritic chest pain, Abdomen/GI: Negative for abdominal pain, nausea, vomiting, diarrhea, and constipation, Back: Negative for injury and pain, : Negative for injury, bleeding, discharge, and swelling. 15:17 Skin: Negative for injury, rash, and discoloration. 15:17 MS/extremity: Positive for abrasion, contusion, pain, of the right knee, Negative for decreased range of motion, deformity. 15:17 Neuro: Positive for weakness, generalized. Exam: 15:17 Constitutional: This is a well developed, well nourished patient who is awake, alert, pm1 and in no acute distress. Head/Face: Normocephalic, atraumatic. Eyes: Pupils equal round and reactive to light, extra-ocular motions intact. Lids and lashes normal. Conjunctiva and sclera are non-icteric and not injected. Cornea within normal limits. Periorbital areas with no swelling, redness, or edema. ENT: Nares patent. No nasal discharge, no septal abnormalities noted. Tympanic membranes are normal and external auditory canals are clear. Oropharynx with no redness, swelling, or masses, exudates, or evidence of obstruction, uvula midline. Mucous membranes moist. Neck: Trachea midline, no thyromegaly or masses palpated, and no cervical lymphadenopathy. Supple, full range of motion without nuchal rigidity, or vertebral point tenderness. No Meningismus. Chest/axilla: Normal chest wall appearance and motion. Nontender with no deformity. No lesions are appreciated. Cardiovascular: Regular rate and rhythm with a normal S1 and S2. No gallops, murmurs, or rubs. Normal PMI, no JVD. No pulse deficits. Respiratory: Lungs have equal breath sounds bilaterally, clear to auscultation and percussion. No rales, rhonchi or wheezes noted. No increased work of breathing, no retractions or nasal flaring. Abdomen/GI: Soft, non-tender, with normal bowel sounds. No distension or tympany. No guarding or rebound. No evidence of tenderness throughout. Back: No spinal tenderness. No costovertebral tenderness. Full range of motion. 15:17 Skin: Appearance: normal except for affected area, injury, abrasion(s), small abrasion noted, of the right knee. 15:17 Neuro: Orientation: is normal, Motor: moves all fours, Sensation: is normal, no obvious gross deficits. Vital Signs: 11:29 BP 136 / 53; Pulse 74; Resp 14; Temp 98.3; Pulse Ox 91% on R/A; Weight 78.47 kg; Height em 5 ft. 0 in. (152.40 cm); Pain 3/10; 12:23 BP 125 / 48; Pulse 67; Resp 16; Temp 98.2; Pulse Ox 98% on 2 lpm NC; em 14:00 BP 110 / 65; Pulse 66; Resp 18; Pulse Ox 99% on 2 lpm NC; em 15:00 BP 118 / 68; Pulse 52; Resp 18; Pulse Ox 99% on 2 lpm NC; em 15:58 BP 126 / 48; Pulse 72; Resp 18; Pulse Ox 100% on 2 lpm NC; em 11:29 Body Mass Index 33.79 (78.47 kg, 152.40 cm) em MDM: 11:18 Patient medically screened. pm1 15:17 Data reviewed: vital signs. Data interpreted: Pulse oximetry: on room air is 98 %. pm1 Interpretation: normal. Counseling: I had a detailed discussion with the patient and/or guardian regarding: the historical points, exam findings, and any diagnostic results supporting the discharge/admit diagnosis, lab results, the need for further work-up and treatment in the hospital. 15:25 Physician consultation: Wendy Laura MD was called at 15:25, was contacted at 15:25, pm1 regarding admission, patient's condition, and will see patient. 06/14 12:39 Order name: CBC with Diff pm1 06/14 12:39 Order name: CMP; Complete Time: 13:45 pm1 06/14 12:40 Order name: CBC with Automated Diff; Complete Time: 13:45 EDNE 06/14 13:46 Order name: CPK; Complete Time: 15:20 pm1 06/14 15:10 Order name: Urine Microscopic Only; Complete Time: 18:55 eb 06/14 15:11 Order name: Urine Dipstick--Ancillary (enter results); Complete Time: 15:27 eb 06/14 12:39 Order name: Urine Dipstick-Ancillary (obtain specimen); Complete Time: 16:31 pm1 06/14 12:39 Order name: EKG; Complete Time: 12:40 pm1 06/14 12:39 Order name: Chest Single View XRAY; Complete Time: 13:45 pm1 06/14 14:17 Order name: Diet Ada 1800 Santhosh; Complete Time: 14:18 em 06/14 15:36 Order name: CONS Physician Consult NE 06/14 15:40 Order name: Urine Culture [facility] 06/14 12:39 Order name: IV Saline Lock; Complete Time: 12:56 pm06/14 12:39 Order name: EKG - Nurse/Tech; Complete Time: 12:56 pm1 Administered Medications: 14:26 Drug: NS 0.9% 500 ml Route: IV; Rate: bolus; Site: left hand; em 16:34 Follow up: IV Status: Completed infusion; IV Intake: 500ml em 14:27 Drug: NS 0.9% 1000 ml Route: IV; Rate: 100 ml/hr; Site: left hand; em 16:33 Follow up: IV Status: Completed infusion; IV Intake: 100ml em Point of Care Testing: Blood Glucose: 12:23 Blood Glucose: 291 mg/dL; em Ranges: Critical Glucose Levels:Adult <50 mg/dl or >400 mg/dl <40 mg/dl or >180 mg/dl Disposition: 06/14/18 15:27 Hospitalization ordered by Wendy Laura for Inpatient Admission. Preliminary diagnosis are Acute kidney failure, Urinary tract infection, site not specified. - Bed requested for Telemetry/MedSurg (Inpatient). - Status is Inpatient Admission. em - Condition is Stable. - Problem is new. - Symptoms have improved. UTI on Admission? Yes Addendum: 06/15/2018 19:29 Co-signature as Attending Physician, Pankaj Hung MD I agree with the assessment and k dr plan of care. Signatures: Dispatcher [employer] Lauren Duenas RN RN dw Pankaj Hung MD MD [facility] Edy Orta, JAVA DEVELOPER WITH SECURITY CLEARANCE JAVA DEVELOPER WITH SECURITY CLEARANCE em Buck Parekh, FORM MAKER PLASTER FORM MAKER PLASTER pm1 Corrections: (The following items were deleted from the chart) 06/14 15:49 15:27 Hospitalization Ordered by Wendy Laura MD for Inpatient Admission. Preliminary dw diagnosis is Acute kidney failure; Urinary tract infection, site not specified. Bed requested for Telemetry/MedSurg (Inpatient). Status is Inpatient Admission. Condition is Stable. Problem is new. Symptoms have improved. UTI on Admission? Yes. pm1 16:34 15:49 06/14/2018 15:27 Hospitalization Ordered by Wendy Laura MD for Inpatient em Admission. Preliminary diagnosis is Acute kidney failure; Urinary tract infection, site not specified. Bed requested for Telemetry/MedSurg (Inpatient). Status is Inpatient Admission. Condition is Stable. Problem is new. Symptoms have improved. UTI on Admission? Yes. dw
[2018-06-14 15:38] LABS: Urine Bacteria >50 /HPF (<20); Urine Culture Reflex Order REFLEXED; Urine RBC >50 /HPF (NONE SEEN); Urine White Blood Cell Casts 0-5 /LPF (NONE SEEN)
[2018-06-14] MEDS ORDERED: NA CHLORIDE 0.9% 1,000 ML IV SCH (16:00)
[2018-06-14] MEDS ORDERED: ONDANSETRON 4 MG/2 ML VIAL IV PRN (16:55)
--- NOTE | 2018-06-14 17:24 | P.HP ---
Certification for Inpatient Patient admitted to: Observation With expected LOS: <2 Midnights Patient will require the following post-hospital care: None Practitioner: I am a practitioner with admitting privileges, knowledge of patient current condition, hospital course, and medical plan of care. Services: Services provided to patient in accordance with Admission requirements found in Title 42 Section 412.3 of the Code of Federal Regulations Patient History Date of Service: 06/14/18 Primary Care Provider: Dr. rhodes Reason for admission: Generalized weakness History of Present Illness: This is a 77-year-old female with significant past medical history of type 2 diabetes hypertension hyperlipidemia CAD breast cancer status post mastectomy on the right, PVD, GERD, atrial fibrillation, CHF who presented to the ED complaining of having some generalized weakness. Patient stated that she was here in the ER yesterday after having a fall in the bathroom where she her chair slipped and she landed on her right side. Patient states that while here in the ER she had extensive workup done. She did hit her head and her head CT was negative for any acute abnormality. Patient also hit her knee and had MRI of the knee which was also negative for any acute abnormality. She had a negative workup yesterday she was then discharged home under stable condition. This morning however patient started having some generalized weakness along with knee pain and the she decided to come back to the ER for further workup. In the ER patient had lab work and imaging done again. Lab work was consistent with acute kidney injury and dehydration and this patient was admitted for further care Allergies Quinolones Allergy (Verified 09/25/17 01:08) Anaphylaxis Home Medications: ALPRAZolam [Xanax*] 0.25 mg PO BID PRN 05/31/18 Anastrozole [Arimidex*] 1 mg PO DAILY 05/31/18 Aspirin Chewable [Aspirin Chewable*] 81 mg PO DAILY 05/31/18 Atorvastatin Calcium [Lipitor*] 40 mg PO BEDTIME 05/31/18 Chlorthalidone [Hygroton 25mg Tab*] 25 mg PO DAILY 05/31/18 Citalopram [Celexa*] 20 mg PO DAILY 05/31/18 Ferrous Sulfate [Ferrous Sulfate*] 325 mg PO TID 05/31/18 Insulin Degludec [Tresiba Flextouch U-200] 40 unit SQ DAILY 05/31/18 Meclizine HCl [Antivert*] 25 mg PO TID PRN 05/31/18 Metoprolol Succinate [Toprol Xl*] 50 mg PO DAILY 05/31/18 Pantoprazole [Protonix Tab*] 40 mg PO DAILY 05/31/18 Ramipril [Altace*] 2.5 mg PO DAILY 05/31/18 Warfarin Sodium [Coumadin*] 2 mg PO DAILY 05/31/18 Amox/Clavulanate [Augmentin 500-125 mg Tab*] 250 mg PO BID #5 tab 06/03/18 - Past Medical/Surgical History Has patient received pneumonia vaccine in the past: Yes Diabetic: Yes -: Atrial fibrillation, Cardiology-Dr. Camarena -: Chronic anticoagulation-Coumadin -: HTN -: GERD -: Chronic renal disease, Baseline GFR-30, Nephrology -: PVD -: Gout -: Depression with Anxiety -: Diabetes mellitus type 2, insulin-dependent -: Coronary disease -: Carotid arterial disease -: Hyperlipidemia -: Appendectomy -: Tubal ligation -: Hysterectomy -: Heart Cath -: right breast lumpectomy with lymph node removal Psychosocial/ [facility]: [facility] has 10 children. - Family History Brother -: Diabetes Mother -: Heart disease, Hypertension, Diabetes Notes: arthritis - Social History Alcohol use: No CD- Drugs: No Caffeine use: Yes Review of Systems 10-point ROS is otherwise unremarkable Physical Examination - Physical Exam General: Alert, Mild distress HEENT: Normocephalic Respiratory: Clear to auscultation bilaterally, Normal air movement Cardiovascular: Regular rate/rhythm, Normal S1 S2 Gastrointestinal: Normal bowel sounds, Soft and benign, Non-distended, No tenderness Musculoskeletal: Other (Right knee bruising noted. Limited range of motion on the right knee.) Neurological: Normal speech, Normal tone, Normal affect, Abnormal strength Lymphatics: No axilla or inguinal lymphadenopathy - Studies Laboratory Data (last 24 hrs) 06/14/18 12:50: Sodium 138, Potassium 4.2, BUN 102 H D, Creatinine 3.11 H D, Glucose 253 H, Total Bilirubin 0.4, AST 9 L, ALT 14, Alkaline Phosphatase 150 H 06/14/18 12:50: WBC 8.9 D, Hgb 11.2 L, Hct 34.4 L, Plt Count 279 D Assessment and Plan - Problems (Diagnosis) (1) Fall Current Visit: Yes Status: Acute Plan: Patient status post mechanical fall -PT OT consulted -fall precautions given Qualifiers: Encounter type: initial encounter Qualified Code(s): W19.XXXA - Unspecified fall, initial encounter (2) Weakness generalized Onset Date: 11/09/14 Current Visit: No Status: Chronic Plan: Generalized weakness most likely secondary to uremia -UA concerning for UTI -started on IV antibiotics -started on IV fluids for MITCH -will monitor closely (3) Acute kidney injury superimposed on chronic kidney disease Onset Date: 09/25/17 Current Visit: No Status: Acute Plan: Acute kidney injury on chronic kidney injury stage III -currently BUN and creatinine elevated -will start patient on IV fluid at this time -nephrology is consulted. Awaiting recommendations at this time -await nephrotoxic agent (4) Atrial fibrillation Onset Date: 04/17/16 Current Visit: No Status: Chronic Plan: Chronic atrial fibrillation. -currently stable. Will restart home medication. -would check coagulation panel and restart warfarin if therapeutic INR Qualifiers: Atrial fibrillation type: chronic (5) CAD (coronary artery disease) Onset Date: 11/27/17 Current Visit: No Status: Chronic Plan: Stable at this time -will restart home medication Qualifiers: Coronary Disease-Associated Artery/Lesion type: [place] artery [place] vs. transplanted heart: [place] heart Associated angina: without angina Qualified Code(s): I25.10 - Atherosclerotic heart disease of [place] coronary artery without angina pectoris (6) CHF (congestive heart failure) Onset Date: 07/06/15 Current Visit: No Status: Chronic Plan: History of congestive heart failure -last echocardiogram done 2018 -with normal ejection fraction and diastolic dysfunction -will monitor closely with IV Qualifiers: Heart failure type: other Qualified Code(s): I50.9 - Heart failure, unspecified (7) Diabetes mellitus Onset Date: 07/06/15 Current Visit: No Status: Chronic Plan: ISS and accucheck ACHS Qualifiers: Diabetes mellitus type: type 2 Diabetes mellitus fci insulin use: without case manager use Diabetes mellitus complication status: without complication Qualified Code(s): E11.9 - Type 2 diabetes mellitus without complications (8) HTN (hypertension) Onset Date: 04/17/16 Current Visit: No Status: Chronic Plan: Stable at this time -restarted on home medication Qualifiers: Hypertension type: essential hypertension (9) Hyperlipidemia Onset Date: 11/27/17 Current Visit: No Status: Chronic Plan: Restart on home med Qualifiers: Hyperlipidemia type: unspecified Qualified Code(s): E78.5 - Hyperlipidemia , unspecified Discharge Plan: Home Plan to discharge in: Greater than 2 days - Advance Directives Does patient have a Living Will: Yes Does patient have a Durable POA for Healthcare: Yes - Code Status/Comfort Care Code Status Assessed: Yes Critical Care: No
[2018-06-14] MEDS ORDERED: D50W 25 GM/50 ML SYRINGE IV PRN (17:25)
[2018-06-14] MEDS ORDERED: GLUCAGON 1 MG/VIAL IM PRN (17:25)
[2018-06-14 17:43] LABS: Protime INR 3.08
[2018-06-14] MEDS: INSULIN -REGULAR HUMAN 50 UNIT/0.5 ML ML SQ SCH ×2 (17:58→20:18)
[2018-06-14] MEDS: NA CHLORIDE 0.9% 1,000 ML IV SCH ×2 (17:59→23:35)
[2018-06-14 18:26] VITALS: BMI 33.7
--- NOTE | 2018-06-14 18:41 | RAD REPORT ---
EXAM DESCRIPTION: MRI - Knee Right Wo Cont - 06/14/2018 6:20 pm CLINICAL HISTORY: Fall, knee pain COMPARISON: Knee film June 13, 2018 TECHNIQUE: Sagittal and axial PD and T2 fat sat sequences obtained. Coronal T2 fat sat and T1 sequen jay also obtained. FINDINGS: Exam is degraded by motion. No occult fracture, bone bruise or marrow replacing process. Mild to moderate patella and femoral cho ndromalacia changes are present. A few small subcortical degenerative cysts are present. No full thic kness osteochondral defects identifiable. Marginal spurs are present. Medial compartment is narrowed. Small joint effusion is present. No intra-articular loose bodies. Mild edema changes are present in t he fatty tissues anterior to the patella and patella tendon. Anterior cruciate, posterior cruciate, medial collateral and lateral collateral ligaments are intact. Degenerative signal is present in the lateral meniscus. There is a moderately large tear in the poste rior horn and mid body of the medial meniscus that extends to the inferior articular surface. No free or displaced meniscal tissue. IMPRESSION: Moderate-sized tear in the posterior horn and mid body of the medial meniscus. No free o r displaced meniscal tissue. Moderate severity patella and femoral chondromalacia changes. Marginal spurring changes are present. No full thickness osteochondral defect. Mild contusion or edema changes anterior to the patella and patella tendon.
[2018-06-14] MEDS: Meropenem 1,000 MG in NA CHLORIDE 0.9% 100 ML IV SCH (20:07)
[2018-06-14] MEDS ORDERED: Meropenem 1000 MG/VIAL IV SCH (21:00)
[2018-06-15 06:02] LABS: Absolute Lymphocytes (CBC) 2.2 K/uL (0.7-4.9); Basophils % 0.6 % (0-1.3); Eosinophils % 6.1 % (0-4.4); Hematocrit 34.8 % (36.0-45.0); MPV 9.4 fL (7.6-11.3); RBC Red Blood Cell Count 3.72 M/uL (3.86-4.86)
[2018-06-15 06:08] LABS: Albumin 2.8 g/dL (3.4-5.0); Bilirubin Total 0.2 mg/dL (0.2-1.0); Magnesium 1.7 mg/dL (1.8-2.4); Potassium 3.5 mmol/L (3.5-5.1); Protein, Total 6.8 g/dL (6.4-8.2)
[2018-06-15] MEDS: INSULIN -REGULAR HUMAN 50 UNIT/0.5 ML ML SQ SCH ×4 (07:30→21:32)
[2018-06-15] MEDS: Meropenem 1,000 MG in NA CHLORIDE 0.9% 100 ML IV SCH ×2 (08:18→21:34)
[2018-06-15] MEDS ORDERED: MAGNESIUM SULFATE 1 gm IVPB 1 GM/100 ML BAG IV ONE (09:00)
[2018-06-15] MEDS ORDERED: POTASSIUM 25 MEQ EFFERV TAB PO ONE (09:00)
[2018-06-15] MEDS ORDERED: ALPRAZOLAM 0.25 MG TABLET PO PRN (10:26)
[2018-06-15] MEDS ORDERED: MECLIZINE HCL 12.5 MG TAB PO PRN (10:26)
[2018-06-15] MEDS: NA CHLORIDE 0.9% 1,000 ML IV SCH ×2 (11:00→15:17)
--- NOTE | 2018-06-15 11:48 | P.PN ---
Subjective Date of Service: 06/15/18 Primary Care Provider: Dr. rhodes Chief Complaint: Generalized weakness Subjective: No C/O voiced, Tolerating diet, Ambulating, Improving, Working w/ PT , Doing well Review of Systems 10-point ROS is otherwise unremarkable Physical Examination - Vital Signs Temperature: 96 F Blood Pressure: 161/75 Pulse: 67 Respirations: 18 Pulse Ox (%): 94 - Physical Exam General: Alert, In no apparent distress HEENT: Atraumatic, PERRLA, EOMI Neck: Supple, JVD not distended Respiratory: Clear to auscultation bilaterally, Normal air movement Cardiovascular: Regular rate/rhythm, Normal S1 S2 Gastrointestinal: Normal bowel sounds, No tenderness Musculoskeletal: No tenderness Integumentary: No rashes Neurological: Normal speech, Normal tone, Normal affect Lymphatics: No axilla or inguinal lymphadenopathy - Studies Laboratory Data (last 24 hrs) 06/14/18 12:50: Sodium 138, Potassium 4.2, BUN 102 H D, Creatinine 3.11 H D, Glucose 253 H, Total Bilirubin 0.4, AST 9 L, ALT 14, Alkaline Phosphatase 150 H 06/14/18 12:50: WBC 8.9 D, Hgb 11.2 L, Hct 34.4 L, Plt Count 279 D Medications List Reviewed: Yes Assessment And Plan - Current Problems (Diagnosis) (1) Fall Current Visit: Yes Status: Acute Plan: Patient status post mechanical fall -PT OT consulted -fall precautions given Qualifiers: Encounter type: initial encounter Qualified Code(s): W19.XXXA - Unspecified fall, initial encounter (2) Weakness generalized Onset Date: 11/09/14 Current Visit: No Status: Chronic Plan: Generalized weakness most likely secondary to uremia -UA concerning for UTI -started on IV merrem given the past history of ESBL -started on IV fluids for MITCH -will monitor closely (3) Acute kidney injury superimposed on chronic kidney disease Onset Date: 09/25/17 Current Visit: No Status: Acute Plan: Acute kidney injury on chronic kidney injury stage III -currently BUN and creatinine improving today -Continue fluids at 50cc/hr now -nephrology is consulted. Awaiting recommendations at this time -avoid nephrotoxic agent (4) Atrial fibrillation Onset Date: 04/17/16 Current Visit: No Status: Chronic Plan: Chronic atrial fibrillation. -currently stable. -Started on BB and Warfarin -INR in therapeutic Range Qualifiers: Atrial fibrillation type: chronic (5) CAD (coronary artery disease) Onset Date: 11/27/17 Current Visit: No Status: Chronic Plan: Stable at this time -On Home Medication Qualifiers: Coronary Disease-Associated Artery/Lesion type: [place] artery [place] vs. transplanted heart: [place] heart Associated angina: without angina Qualified Code(s): I25.10 - Atherosclerotic heart disease of [place] coronary artery without angina pectoris (6) CHF (congestive heart failure) Onset Date: 07/06/15 Current Visit: No Status: Chronic Plan: History of congestive heart failure -last echocardiogram done 2018 -with normal ejection fraction and diastolic dysfunction -will monitor closely given the need for fluids now for MITCH Qualifiers: Heart failure type: other Qualified Code(s): I50.9 - Heart failure, unspecified (7) Diabetes mellitus Onset Date: 07/06/15 Current Visit: No Status: Chronic Plan: ISS and accucheck ACHS Qualifiers: Diabetes mellitus type: type 2 Diabetes mellitus mcc insulin use: without mcc use Diabetes mellitus complication status: without complication Qualified Code(s): E11.9 - Type 2 diabetes mellitus without complications (8) HTN (hypertension) Onset Date: 04/17/16 Current Visit: No Status: Chronic Plan: Stable at this time -On Home Medication Qualifiers: Hypertension type: essential hypertension (9) Hyperlipidemia Onset Date: 11/27/17 Current Visit: No Status: Chronic Plan: Stable at this time -On Home Medication Qualifiers: Hyperlipidemia type: unspecified Qualified Code(s): E78.5 - Hyperlipidemia , unspecified Discharge Plan: Home Plan to discharge in: 48 Hours - Code Status/Comfort Care Code Status Assessed: Yes Critical Care: No
[2018-06-15] MEDS: FERROUS SULFATE 325 MG TAB PO SCH ×2 (12:59→21:33)
--- NOTE | 2018-06-15 13:49 | P.CNS ---
Date of Consult: 06/15/18 patient seen/examined. daughter is in room. son, marcelo, was on phone. patient is alert and looks well. had irritated her right knee from fall/was feeling weak. found to have uti and has been started on abx...on merepenem...allergic to quinolones. lives alone and has family visiting. feels safe in her living condition and currently looks comfortably. denies any new problems with nausea/ vomiting or diarrhea. she has been eating ok. denies using access salt or using any over the counter nsaids. bun/cr improved from yesterday. her ivf has been reduced to 50 ccs/hour. she is not in any respiratory distress and is talking comfortably in full sentences. MRI of right knee shows ? of medial meniscus tear but no fractures. family hx: non-contributory pmhx: dm/htn/uti/dehydration/mendoza/ckd/fall/? chf allergies: quinolones medications: reviewed. currently on merepenem and also on ivf with ns at 50 ccs/ hour. primary lead former: follows with Dr. Whalen social: lives alone. has had recent hospital admissions. says she feels safe...has support from family. recent fall. vs : stable. no sob/no pain currently. lungs: ctab/l cvs: regular abd: nt/nd/bs + ext: trace edema/minimal. "dry skin" labs: reviewed. a/p: chf hx/ckd/mendoza/uti/htn/dm: patient with improving renal function based on bun/cr...on gentle hydration. despite low albumin, trace-minimal edema and skin is "dry"...cxray reads, "mild chf". clinically patient is close to euvolemic/perhaps slightly volume depleted. agree with reducing ivf to 50 ccs/hour. not sob and talking in full sentences. fall precautions counseled. will need f/u with lead former for evalatuion of baseline ckd once acute issues resolved. diet counseled: cut back on salt/be vigilant of any over the counter decongestants and nsaids. however, adequate water intake reviewed. ? if some worsening due to uti...ua with wbcs/ bacteria. now on abx and cx is pending...may need adjustment of abx once cx finalized...will defer managment to hospitalist. thanks kindly for consult.
[2018-06-15] MEDS: ATORVASTATIN 40 MG TAB PO SCH (21:33)
[2018-06-16 05:55] LABS: Absolute Lymphocytes (CBC) 2.3 K/uL (0.7-4.9); Basophils % 1.1 % (0-1.3); Eosinophils % 5.9 % (0-4.4); Hematocrit 33.7 % (36.0-45.0); Lymphocytes % 37.2 % (15.3-44.8); MPV 9.4 fL (7.6-11.3); Monocytes % 5.3 % (3.3-12.3); RBC Red Blood Cell Count 3.62 M/uL (3.86-4.86)
[2018-06-16 06:09] LABS: Protime INR 2.41
[2018-06-16 06:52] LABS: Albumin 2.6 g/dL (3.4-5.0); Bilirubin Total 0.5 mg/dL (0.2-1.0); Potassium 4.8 mmol/L (3.5-5.1); Protein, Total 6.4 g/dL (6.4-8.2)
[2018-06-16] MEDS: INSULIN -REGULAR HUMAN 50 UNIT/0.5 ML ML SQ SCH ×4 (07:30→20:19)
[2018-06-16] MEDS: NA CHLORIDE 0.9% 1,000 ML IV SCH (08:30)
[2018-06-16] MEDS: Meropenem 1,000 MG in NA CHLORIDE 0.9% 100 ML IV SCH (08:31)
[2018-06-16] MEDS: ASPIRIN 81 MG CHEWABLE TABLET PO SCH (08:33)
[2018-06-16] MEDS: ANASTROZOLE 1 MG TAB PO SCH (08:33)
[2018-06-16] MEDS: METOPROLOL XL 50 MG TAB PO SCH (08:33)
[2018-06-16] MEDS: PANTOPRAZOLE 40MG TABLET PO SCH (08:33)
[2018-06-16] MEDS: FERROUS SULFATE 325 MG TAB PO SCH ×3 (08:33→20:18)
[2018-06-16] MEDS: CITALOPRAM 10 MG TABLET PO SCH (08:33)
[2018-06-16] MEDS: CHLORTHALIDONE 25 MG TAB PO SCH (08:34)
[2018-06-16] MEDS ORDERED: INSULIN DEGLUDEC 40 UNIT SQ SCH (09:00)
--- NOTE | 2018-06-16 09:52 | P.PN ---
Subjective Date of Service: 06/16/18 Primary Care Provider: Dr. rhodes Chief Complaint: Generalized weakness Subjective: Tolerating diet, Ambulating, Improving, Working w/ PT, Doing well Review of Systems 10-point ROS is otherwise unremarkable Physical Examination - Vital Signs Temperature: 97.4 F Blood Pressure: 134/74 Pulse: 74 Respirations: 16 Pulse Ox (%): 97 - Physical Exam General: Alert, In no apparent distress HEENT: Atraumatic, PERRLA, EOMI Neck: Supple, JVD not distended Respiratory: Clear to auscultation bilaterally, Normal air movement Cardiovascular: Regular rate/rhythm, Normal S1 S2 Gastrointestinal: Normal bowel sounds, No tenderness Musculoskeletal: Tenderness (Right Knee. Scrapping improved. ) Integumentary: No rashes Neurological: Normal speech, Normal tone, Normal affect Lymphatics: No axilla or inguinal lymphadenopathy - Studies Microbiology Data (last 24 hrs): 06/14/18 15:09 Clean Catch Urine [place] Count - Final >100,000 CFU/ML. 06/14/18 15:09 Clean Catch Urine - Final Escherichia Coli Medications List Reviewed: Yes Assessment And Plan - Current Problems (Diagnosis) (1) Fall Current Visit: Yes Status: Acute Plan: Patient status post mechanical fall -PT OT consulted -fall precautions given Qualifiers: Encounter type: initial encounter Qualified Code(s): W19.XXXA - Unspecified fall, initial encounter (2) UTI (urinary tract infection) Onset Date: 07/06/15 Current Visit: No Status: Acute Plan: UA with UTI -Urince Culture + Ecoli sensitive to Augmentin -Started on Augmentin Qualifiers: Urinary tract infection type: acute cystitis Hematuria presence: without hematuria Qualified Code(s): N30.00 - Acute cystitis without hematuria (3) Weakness generalized Onset Date: 11/09/14 Current Visit: No Status: Chronic Plan: Generalized weakness most likely secondary to uremia -Improved Markedly today -CM consulted for HH arrangement. -Will monitor for next 24hrs (4) Acute kidney injury superimposed on chronic kidney disease Onset Date: 09/25/17 Current Visit: No Status: Acute Plan: Acute kidney injury on chronic kidney injury stage III -currently BUN and creatinine improving today -Stop fluids now -nephrology is consulted. Recommendations at this time -avoid nephrotoxic agent (5) Atrial fibrillation Onset Date: 04/17/16 Current Visit: No Status: Chronic Plan: Chronic atrial fibrillation. -currently stable. -Started on BB and Warfarin -INR is therapuetic Today Qualifiers: Atrial fibrillation type: chronic (6) CAD (coronary artery disease) Onset Date: 11/27/17 Current Visit: No Status: Chronic Plan: Stable at this time -On Home Medication Qualifiers: Coronary Disease-Associated Artery/Lesion type: [place] artery [place] vs. transplanted heart: [place] heart Associated angina: without angina Qualified Code(s): I25.10 - Atherosclerotic heart disease of [place] coronary artery without angina pectoris (7) CHF (congestive heart failure) Onset Date: 07/06/15 Current Visit: No Status: Chronic Plan: History of congestive heart failure -last echocardiogram done 2018 -with normal ejection fraction and diastolic dysfunction -will monitor closely given the need for fluids now for MITCH Qualifiers: Heart failure type: other Qualified Code(s): I50.9 - Heart failure, unspecified (8) Diabetes mellitus Onset Date: 07/06/15 Current Visit: No Status: Chronic Plan: ISS and accucheck ACHS Qualifiers: Diabetes mellitus type: type 2 Diabetes mellitus intermediate project manager insulin use: without prison use Diabetes mellitus complication status: without complication Qualified Code(s): E11.9 - Type 2 diabetes mellitus without complications (9) HTN (hypertension) Onset Date: 04/17/16 Current Visit: No Status: Chronic Plan: Stable at this time -On Home Medication Qualifiers: Hypertension type: essential hypertension (10) Hyperlipidemia Onset Date: 11/27/17 Current Visit: No Status: Chronic Plan: Stable at this time -On Home Medication Qualifiers: Hyperlipidemia type: unspecified Qualified Code(s): E78.5 - Hyperlipidemia , unspecified Discharge Plan: Home Plan to discharge in: 24 Hours - Code Status/Comfort Care Code Status Assessed: Yes Critical Care: No
[2018-06-16] MEDS: WARFARIN SODIUM 2 MG TAB PO SCH (16:40)
[2018-06-16] MEDS: ATORVASTATIN 40 MG TAB PO SCH (20:18)
[2018-06-16] MEDS: AMOX/K CLAV 500 MG TAB PO SCH (20:18)
[2018-06-17 04:46] VITALS: O2SAT 93
[2018-06-17 06:07] LABS: Absolute Lymphocytes (CBC) 1.8 K/uL (0.7-4.9); Basophils % 0.6 % (0-1.3); Eosinophils % 6.3 % (0-4.4); Hematocrit 32.9 % (36.0-45.0); Lymphocytes % 24.7 % (15.3-44.8); MPV 9.6 fL (7.6-11.3); Monocytes % 7.1 % (3.3-12.3); RBC Red Blood Cell Count 3.55 M/uL (3.86-4.86)
[2018-06-17 06:22] LABS: Albumin 2.7 g/dL (3.4-5.0); Bilirubin Total 0.5 mg/dL (0.2-1.0); Potassium 4.7 mmol/L (3.5-5.1); Protein, Total 6.4 g/dL (6.4-8.2)
[2018-06-17] MEDS: ANASTROZOLE 1 MG TAB PO SCH (08:44)
[2018-06-17] MEDS: METOPROLOL XL 50 MG TAB PO SCH (08:44)
[2018-06-17] MEDS: FERROUS SULFATE 325 MG TAB PO SCH ×2 (08:44→13:08)
[2018-06-17] MEDS: CHLORTHALIDONE 25 MG TAB PO SCH (08:45)
[2018-06-17] MEDS: CITALOPRAM 10 MG TABLET PO SCH (08:45)
[2018-06-17] MEDS: PANTOPRAZOLE 40MG TABLET PO SCH (08:45)
[2018-06-17] MEDS: AMOX/K CLAV 500 MG TAB PO SCH (08:45)
[2018-06-17] MEDS: ASPIRIN 81 MG CHEWABLE TABLET PO SCH (08:46)
[2018-06-17] MEDS: INSULIN -REGULAR HUMAN 50 UNIT/0.5 ML ML SQ SCH ×3 (08:52→16:30)
--- NOTE | 2018-06-17 09:22 | EKG ---
Test Date: 2018-06-14 Test Time: 16:16:06 Rod Puller: CANDIS MEASUREMENT RESULTS: Intervals: Rate: 71 MN: 174 QRSD: 78 QT: 386 QTc: 419 [place]: P: 25 MN: 174 QRS: -16 T: -14 INTERPRETIVE STATEMENTS: Sinus rhythm with premature supraventricular complexes Voltage criteria for left ventricular hypertrophy Inferior infarct, age undetermined Anterolateral infarct, age undetermined Abnormal ECG Compared to ECG 06/14/2018 12:55:42 No significant changes Electronically Signed On 06-17-18 09:21:57 CDT by Jefe Ewing
--- NOTE | 2018-06-17 11:56 | P.PN ---
Subjective Date of Service: 06/17/18 Primary Care Provider: Dr. rhodes Chief Complaint: Generalized weakness Subjective: Doing well, Other (Patient still high risk for fall. Needs assistance for mobility) Physical Examination - Vital Signs Temperature: 97.1 F Blood Pressure: 150/63 Pulse: 65 Respirations: 18 Pulse Ox (%): 93 - Physical Exam General: Alert, In no apparent distress, Oriented x3, Cooperative HEENT: Atraumatic Neck: Supple Respiratory: Clear to auscultation bilaterally, Normal air movement Cardiovascular: Normal pulses, Regular rate/rhythm - Studies Microbiology Data (last 24 hrs): 06/14/18 15:09 Clean Catch Urine [place] Count - Final >100,000 CFU/ML. 06/14/18 15:09 Clean Catch Urine - Final Escherichia Coli Medications List Reviewed: Yes Assessment & Plan Discharge Plan: Other (Inpatient rehab) Plan to discharge in: 24 Hours Physician Review Additional Text: Impression: Status post mechanical fall with increase risk of future falls UTI, urine culture positive for E coli Acute on chronic renal disease, stage III Chronic atrial fibrillation on chronic anti coagulation therapy CAD Chronic diastolic CHF Diabetes mellitus type 2 Hypertension Hyperlipidemia Plan: Status post mechanical fall with increase risk of future falls: Patient still a risk for falls. Notes reviewed from physical therapy. Will pursue inpatient rehab. Will discuss with patient and family. If patient does not qualify for inpatient rehab will need to consider skilled placement facility before going home. UTI, urine culture positive for E coli: Continue oral medication. Acute on chronic renal disease, stage III: Overall stable. Continue with nephrology recommendation. Chronic atrial fibrillation on chronic anti coagulation therapy: Continue medication. CAD: Continue medication. Chronic diastolic CHF: Continue with 1500 cc per day fluid restriction. Continue medication. Diabetes mellitus type 2: Continue with sliding scale. Hypertension: Continue medication. Hyperlipidemia: Continue medication. Time Spent Managing Pts Care (In Minutes): 55
[2018-06-17 16:05] VITALS: BP 175/95; TEMP 97.3
[2018-06-17] MEDS: WARFARIN SODIUM 2 MG TAB PO SCH (17:15)
[2018-06-17] MEDS ORDERED: GLUCAGON 1 MG/VIAL IM PRN (17:18)
[2018-06-17] MEDS ORDERED: D50W 25 GM/50 ML SYRINGE IV PRN (17:18)
--- NOTE | 2018-06-17 17:32 | P.DS ---
Admission Date: 06/16/18 Discharge Date: 06/17/18 Primary Care Provider: Dr. Whalen Disposition: TRANSFER TO INPATIENT REHAB Discharge Condition: GOOD Reason for Admission: Generalized weakness Consultations: Nephrology-Dr. Whalen Procedures: MRI: IMPRESSION: Moderate-sized tear in the posterior horn and mid body of the medial meniscus. No free or displaced meniscal tissue. Moderate severity patella and femoral chondromalacia changes. Marginal spurring changes are present. No full thickness osteochondral defect. Mild contusion or edema changes anterior to the patella and patella tendon. Medical Problem List: Status post mechanical fall with increase risk of future falls, MRI showing moderate size tear in the posterior horn and midbody of medial meniscus of the right knee UTI, urine culture positive for E coli Acute on chronic renal disease, stage III Chronic atrial fibrillation on chronic anti coagulation therapy CAD Chronic diastolic CHF Diabetes mellitus type 2 Hypertension Hyperlipidemia Depression with anxiety Brief History of Present Illness: 77-year-old female presented to the emergency room with weakness. Apparently was in the ER prior to the admission for a fall in the bathroom. She had a CT head done at that time. MRI showed right medial meniscus tear. Patient was discharged home. The following morning the patient continued to have generalized weakness within right knee pain. Patient found to be dehydrated. She was admitted for further evaluation. Hospital Course: Patient presented with generalized weakness status post mechanical fall. Patient had MRI showing moderate size tear in the posterior horn and midbody of the medial meniscus of the right knee. Patient was evaluated by physical therapy. Recommendation was to transfer patient to inpatient rehab to continue her care. Patient has been accepted. Patient will go to inpatient rehab for physical therapy. Recommend to follow up with orthopedics as an outpatient to further evaluate. During the course of her stay patient was found to have UTI. Urine culture positive for E coli. At discharge patient will continue with Augmentin 500 mg BID for 4 more days. UTI prevention is to follow. Patient also had acute on chronic renal disease, stage III. Patient has done well. Renal function now stable. Recommend no further use of nonsteroidal anti -inflammatories. Future medications will need to be renally dosed. Patient may follow up with nephrology as directed. Patient with chronic atrial fibrillation on chronic anti coagulation therapy, CAD, hypertension, hyperlipidemia. Patient will continue with her current medications: Metoprolol XL 50 mg daily, chlorthalidone 25 mg daily, aspirin 81 mg daily, Lipitor 40 mg daily. Recommend to recheck INR weekly. Recommendation to maintain INR between 2 and 3. Patient with diabetes type 2. Patient will continue with her basal insulin- Tresiba 40 mg subcu daily. Recommend to maintain blood sugars less 140 fasting and less than 200 after meals. Further adjustment can be done by her PCP. Patient with chronic diastolic CHF. Patient will continue with Lasix 40 mg daily as needed for increase edema to the lower extremities and shortness of breath. Recommend to monitor weight daily. If her weight increases by more than 5 lb she is to contact her PCP for further recommendation. Patient will continue with 1500 cc per day fluid restriction. Patient with depression. Patient will continue with Celexa 20 mg daily. Patient with iron deficiency anemia. Patient will continue with iron 325 mg 3 times a day. Vital Signs/Physical Exam: Temp Pulse Resp BP Pulse Ox 97.3 F 64 18 175/95 H 95 06/17/18 16:00 06/17/18 16:00 06/17/18 16:00 06/17/18 16:00 06/17/18 16:00 General: Alert, In no apparent distress, Oriented x3, Cooperative HEENT: Atraumatic Neck: Supple Respiratory: Clear to auscultation bilaterally, Normal air movement Cardiovascular: Normal pulses, Regular rate/rhythm Gastrointestinal: Normal bowel sounds, Soft and benign, Non-distended, No rebound, No guarding Laboratory Data at Discharge: WBC 7.4 K/uL (4.3-10.9) D 06/17/18 05:22 Hgb 10.9 g/dL (12.0-15.0) L 06/17/18 05:22 Hct 32.9 % (36.0-45.0) L 06/17/18 05:22 Plt Count 236 K/uL (152-406) 06/17/18 05:22 PT 27.5 SECONDS (9.5-12.5) H 06/16/18 05:33 INR 2.41 06/16/18 05:33 APTT 45.0 SECONDS (24.3-36.9) H 06/14/18 17:24 Sodium 142 mmol/L (136-145) 06/17/18 05:22 Potassium 4.7 mmol/L (3.5-5.1) 06/17/18 05:22 BUN 65 mg/dL (7-18) H 06/17/18 05:22 Creatinine 1.98 mg/dL (0.55-1.3) H 06/17/18 05:22 Glucose 173 mg/dL (74-106) H 06/17/18 05:22 Phosphorus 4.0 mg/dL (2.5-4.9) 06/15/18 05:09 Magnesium 1.7 mg/dL (1.8-2.4) L D 06/15/18 05:09 Total Bilirubin 0.5 mg/dL (0.2-1.0) 06/17/18 05:22 AST 15 U/L (15-37) 06/17/18 05:22 ALT 12 U/L (12-78) 06/17/18 05:22 Alkaline Phosphatase 109 U/L (45-117) 06/17/18 05:22 Home Medications: ALPRAZolam [Xanax*] 0.25 mg PO BID PRN 05/31/18 Anastrozole [Arimidex*] 1 mg PO DAILY 05/31/18 Aspirin Chewable [Aspirin Chewable*] 81 mg PO DAILY 05/31/18 Atorvastatin Calcium [Lipitor*] 40 mg PO BEDTIME 05/31/18 Chlorthalidone [Hygroton 25mg Tab*] 25 mg PO DAILY 05/31/18 Citalopram [Celexa*] 20 mg PO DAILY 05/31/18 Ferrous Sulfate [Ferrous Sulfate*] 325 mg PO TID 05/31/18 Insulin Degludec [Tresiba Flextouch U-200] 40 unit SQ DAILY 05/31/18 Meclizine HCl [Antivert*] 25 mg PO TID PRN 05/31/18 Metoprolol Succinate [Toprol Xl*] 50 mg PO DAILY 05/31/18 Pantoprazole [Protonix Tab*] 40 mg PO DAILY 05/31/18 Ramipril [Altace*] 2.5 mg PO DAILY 05/31/18 Warfarin Sodium [Coumadin*] 2 mg PO DAILY 05/31/18 Amox/Clavulanate [Augmentin 500-125 mg Tab*] 500 mg PO Q12HR #8 tab 06/17/18 Furosemide [Lasix*] 40 mg PO DAILY PRN #30 tab 06/17/18 New Medications: Amox/Clavulanate [Augmentin 500-125 mg Tab*] 500 mg PO Q12HR #8 tab Furosemide [Lasix*] 40 mg PO DAILY PRN #30 tab PRN Reason: Shortness Of Breath Patient Discharge Instructions: 1. Patient will be admitted to inpatient rehab. 2. Patient presented with generalized weakness status post mechanical fall. Patient had MRI showing moderate size tear in the posterior horn and midbody of the medial meniscus of the right knee. Patient was evaluated by physical therapy. Recommendation was to transfer patient to inpatient rehab to continue her care. Patient has been accepted. Patient will go to inpatient rehab for physical therapy. Recommend to follow up with orthopedics as an outpatient to further evaluate. 3. During the course of her stay patient was found to have UTI. Urine culture positive for E coli. At discharge patient will continue with Augmentin 500 mg BID for 4 more days. UTI prevention is to follow. 4. Patient also had acute on chronic renal disease, stage III. Patient has done well. Renal function now stable. Recommend no further use of nonsteroidal anti-inflammatories. Future medications will need to be renally dosed. Patient may follow up with nephrology as directed. 5. Patient with chronic atrial fibrillation on chronic anti coagulation therapy, CAD, hypertension, hyperlipidemia. Patient will continue with her current medications: Metoprolol XL 50 mg daily, chlorthalidone 25 mg daily, aspirin 81 mg daily, Lipitor 40 mg daily. Recommend to recheck INR weekly. Recommendation to maintain INR between 2 and 3. 6. Patient with diabetes type 2. Patient will continue with her basal insulin-Tresiba 40 mg subcu daily. Recommend to maintain blood sugars less 140 fasting and less than 200 after meals. Further adjustment can be done by her PCP. 7. Patient with chronic diastolic CHF. Patient will continue with Lasix 40 mg daily as needed for increase edema to the lower extremities and shortness of breath. Recommend to monitor weight daily. If her weight increases by more than 5 lb she is to contact her PCP for further recommendation. Patient will continue with 1500 cc per day fluid restriction. 8. Patient with depression. Patient will continue with Celexa 20 mg daily. 9. Patient with iron deficiency anemia. Patient will continue with iron 325 mg 3 times a day. Diet: ADA Activity: Fall precautions Time spent managing pt's care (in minutes): 55
[2018-06-17] MEDS ORDERED: INSULIN GLARGINE 100 UNITS/ML SQ SCH (21:00)
--- NOTE | 2018-06-19 22:31 | P.PN ---
Date of Service: 06/17/18 Vital Signs Temp Pulse Resp BP Pulse Ox 97.3 F 64 18 175/95 H 95 06/17/18 16:00 06/17/18 16:00 06/17/18 16:00 06/17/18 16:00 06/17/18 16:00 Microbiology Results 06/14/18 15:09 Clean Catch Urine [place] Count - Final >100,000 CFU/ML. 06/14/18 15:09 Clean Catch Urine - Final Escherichia Coli Assessment/ Plan: Nephrology CPS stable without CP or SOB. No acute events overnight. Feeling better since admission and looking forward to going home. Vitals, medications, blood work and imaging reviewed in the chart. NAD. MMM. Neck supple. CTA. RRR. Soft Abd. No C/C/E. No rash. AAO. Normal Speech. A/ MITCH, improved. Acute cystitis. Diastolic CHF, chronic. DM II with CKD. P/ Continue current POC and Medications. AM labs. Daily weight. No NSAIDs. Agree with abx. Agree with gentle IVF.
== END 2018-06-17 20:40 | DRG 683 ==
LOC: ER 11:10 → ERHOLD 15:35 → 4TH 16:06 → OBSVTOIN 06-16 18:26
PROVIDERS: ADMIT Family Medicine; ATTEND Family Medicine
DX: N17.9 Acute kidney failure, unspecified (principal); N30.00 Acute cystitis without hematuria; I13.0 Hypertensive heart and chronic kidney disease with heart failure and stage 1 through stage 4 chronic kidney disease, or unspecified chronic kidney disease; I50.32 Chronic diastolic (congestive) heart failure; R53.1 Weakness; S83.241A Other tear of medial meniscus, current injury, right knee, initial encounter; B96.20 Unspecified Escherichia coli [E. coli] as the cause of diseases classified elsewhere; E11.22 Type 2 diabetes mellitus with diabetic chronic kidney disease; N18.3 Chronic kidney disease, stage 3 (moderate); I48.2 Chronic atrial fibrillation; I25.10 Atherosclerotic heart disease of native coronary artery without angina pectoris; F41.8 Other specified anxiety disorders; Z79.01 Long term (current) use of anticoagulants; E78.5 Hyperlipidemia, unspecified; D50.9 Iron deficiency anemia, unspecified
CPT/HCPCS: 36415; 70450; 71045; 72125; 80053; 81003; 81015; 82550; 82962; 83735; 84100; 85025; 85610; 85730; 87077; 87086; 87088; 87186; 93005; 96360; 96361; 96365; 96367; 97110; 97116; 97163; 97530; 99285; G0378; J3475; J7030

== ENCOUNTER 2018-06-17 14:05 | Inpatient (IN) | payer OTHER ==
--- NOTE | 2018-06-17 15:07 | R.PREADM ---
SCREENING DATE AND TIME 06/17/2018 14:12 (CDT) ANTICIPATED REHAB ADMISSION DATE 06/19/2018 REFERRING FACILITY [facility] REFERRAL DATE AND TIME 06/17/2018 14:12 (CDT) ACUTE ADMIT DATE 06/16/2018 Previous Rehabilitation(s): No. REFERRING PHYSICIAN Wendy Laura REHAB FACILITY [facility] CLINICAL LIAISON Valerie Ledbetter PHYSICIAN REVIEWER Dr. Huan Pepe M.D. MR# [id number] NAME SARI GARCIA ADDRESS [address] [facility] PHONE [facility] [address] DATE OF 1940 AGE 77 SSN# [id number] GENDER female MARITAL STATUS RACE ADMIT FROM 02 - [facility] PRE-HOSPITAL LIVING SETTING 01 - Home (private home/apt. board/care, assisted living, detention, transitional living) HOME TYPE AND DETAILS Type of home: single family house # of steps to enter the residence: 0 # of steps within the residence: 0 # of levels in the residence: 1 PRE-HOSPITAL LIVING WITH Attendant FAMILY SUPPORT No PRIMARY FAMILY CONTACT AKUA Garcia PRIMARY FAMILY CONTACT PHONE PHONE PRIMARY FAMILY CONTACT ON ADM.? no IS PRIMARY FAMILY CONTACT AUTH. REP.? no 1ST EMERGENCY CONTACT Bandar Garcia 1ST CONTACT PHONE PHONE 1ST CONTACT ON ADM. no IS 1ST CONTACT AUTH. REP.? no PHONE 2ND CONTACT ON ADM.? no PATIENT EMPLOYMENT STATUS Retired (for age) PATIENT EMPLOYER No Employer PAYOR INFORMATION: 1ST PAYOR NAME Medicare 1ST PAYOR INJURY/ILLNESS DUE TO ACCIDENT? No ANOTHER CONSTITUTION PARTY RESPONSIBLE? No PRIMARY REHAB/ACUTE DIAGNOSIS: Chronic Kidney Disease ONSET DATE 06/16/2018 REHAB IMPAIRMENT CATEGORY (BIRD): 20 Miscellaneous (Misc) does NOT meet 60% rule PRIMARY DIAGNOSIS-RELATED SURGERIES: No surgeries related to the primary diagnosis were performed. 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 is a 77 yo Right-handed female. On 06/16/2018 she was admitted to [facility] with diagnosis Chronic Kidney Dise ase. Her impairment category is Medically Complex Conditions 17 - Other Medically Complex Conditions (17. 9). Pre-morbidly, Pt. was independent/mod-I in Self-Care, Sphincter Control, Transfers Control, Locomotio n, and Communication; and she had good Sphincter Control. Currently, she has deficits of Transfers Control, Locomotion, Communication, Social Cognition, Endura nce, Balance, Safety Awareness, and Self-Care. Pt. is now referred to [facility] for acute in-patient rehabilitation in order to maximize patient's functional independence in activities of daily living, strength, ROM, and mobi lity. Patient has realistic goal of being discharged at assistance level 6-Melvin to reside at Home with Att endant. PAST MEDICAL HISTORY ATRIAL FIBRILLATION CHF CORONARY ARTERY DISEASE HYPERLIPIDEMIA Type 2 diabetes mellitus with diabetic chronic kidney disease (E11.22) UTI hypertension weakness MEDICATION ALLERGIES: quinolones ENVIRONMENTAL ALLERGIES: - Substance Allergies None Known - Other Allergies None Known CODE STATUS: Full code WEIGHT/HEIGHT/BMI: WEIGHT 238 lbs HEIGHT 6' 3" BMI 29.7 DIET: - Diet Type Regular - Diet - Solid Texture Regular - Diet - Liquid Texture Regular - Tube Feed N/A REVIEW OF SYSTEMS: - Gen Alert and awake Lying in bed No apparent distress Oriented to: person, time, and place - Vital Signs Vital signs stable, afebrile - CVS RRR VITAL SIGNS Temperature: 97.1 F SBP/DBP: 150/63 Pulse: 65 Resp: 18 Vital signs stable, afebrile CURRENT SPHINCTER CONTROL: Pre-hospital bladder status: continent # of bladder accidents in the last 7 days prior to screenin Pre-hospital bowel status: unspecified # of bowel accidents in the last 7 days prior to screenin Last Bowel Movement Date: 06/17/2018 DETAILED CURRENT FUNCTIONAL STATUS: - Bladder accident frequency: Ind - No accidents in the past 7 days - Bowel accident frequency: Ind - No accidents in the past 7 days - Walking score based on distance walked: 1(<=50ft) - Wheelchair score based on distance traveled: 1(<=50ft) FUNCTIONAL STATUS: - Self-Care A. Eating Ind Ind B. Grooming Ind Ind C. Bathing Ind Ind D. Dressing - Upper Ind Ind E. Dressing - Lower Ind maxA F. Toileting Ind Dep - Sphincter Control G: Bladder control Ind Ind H: Bowel control Ind Ind - Transfers Control I. Bed/Chair/Wheelchair Ind maxA J. Toilet Ind maxA K. Tub/Shower Ind maxA - Locomotion L. Walk/Wheelchair (B) Ind Dep M. Stairs Ind ADNO - Communication N. Comprehension (B) sup Matty O. Expression (B) Melvin Matty - Social Cognition P. Social Interaction sup Matty Q. Problem Solving Matty modA R. Memory Matty Matty - Endurance Poor - Balance Poor - Safety Awareness Poor CURRENT FUNC. DEFICITS: Transfers Control, Locomotion, Communication, Social Cognition, Endurance, Balance, Safety Awareness, and Self-Care THERAPY NOTES FROM ACUTE CARE: Attached. SPECIAL NEEDS: - Safety Concerns Skin breakdown precautions needed due to skin breakdown risk PRECAUTIONS: - Weight Bearing Precaution NWB right LE PATIENT NEEDS ACTIVE AND ONGOING THERAPEUTIC INTERVENTION OF MULTIPLE THERAPY DISCIPLINES, INCLUDING: - Occupational Therapy Evaluate and Treat. - Physical Therapy Evaluate and Treat. PATIENT NEEDS CLOSE MEDICAL SUPERVISION BY A REHABILITATION PHYSICIAN FOR: Bowel and Bladder Management Coordination of Treatment Team Diabetes Management Medical and Co-Morbidity Management PATIENT REQUIRES 24X7 REHAB NURSING FOR MEDICAL AND FUNCTIONAL MGT. OF THE FOLLOWING DEFICITS: ADL's Ambulation Bowel and Bladder Management Cognition Communication Disease Management Medication Management Patient/Family Education Providing Safe Environment Transfers PATIENT REQUIRES INTENSIVE, COORDINATED INTERDISCIPLINARY APPROACH TO REHAB: Arranging Home Equipment/Services Discharge Planning Family Intervention/Training Clinical Informatics Spec/Case Management PATIENT REHAB POTENTIAL: Expected level of measurable improvement will be of a practical value to patient's functional capacit y or adaptations to impairments Has a viable Discharge Plan Medically appropriate; condition is sufficiently stable to participate in intensive rehab program Patient is able and expected to receive 3 hours of individualized therapy daily on at least 5 of ever y 7 days Patient's prognosis for significant practical improvement within a reasonable period of time appears Good DISCHARGE PLAN: - Estimated Length of Stay (days) 13. - Consensus on plan Discharge plan has been discussed with primary caregiver. Patient/Family is in agreement with the esperanza n. Primary caregiver is in agreement with the plan. - Patient/Family Goals Return home with assistance. - Planned Living Setting Upon Discharge Home, to live with Attendant. Primary caregiver: Attendant. RECOMMENDED CARE LEVEL: IRF RECOMMENDATION DETAILS: Recommended Admission to Comprehensive Rehabilitation Program to Increase Functional [place] SCREENER'S COMPLETENESS CONFIRMATION: - Screening Confirmation The patient data collection on this preadmission screening form is finished PHYSICIANS REVIEW AND ADMISSION DETERMINATION Admit - Based on my review of the Pre-Admission Screening results, in my medical judgment and experie nce, I concur with the findings and recommend admission to [facility], as this patient requires an IRF level of care. SIGNATURE PANEL: Clinical Liaison - [electronically] signed by Myrtle Newberry on 06/17/2018 at 14:53 (CDT) Clinical Liaison - [electronically] signed by Valerie Ledbetter on 06/17/2018 at 14:55 (CDT) Physician Reviewer - [electronically] signed by Dr. Huan Pepe M.D. on 06/17/2018 at 15:06 (CDT )
--- OUTSIDE RECORDS SUMMARY | 2018-06-17 20:42 | XMS REPORT ---
:1940 Author Organization eClinicalWorks Care Team Providers Name Role Phone Valentín [facility] Provider Role Unavailable Allergies No Known Allergies [...] Start End Date Status Dosage System Date [facility] 33535167707 200 UNIT/ML Active 70 UNITS FlexTouch Subcutaneous DAILY Increase 2 untis after 3 day if BS are high Results No Known Results Summary Purpose eClinicalWorks Submission
--- OUTSIDE RECORDS SUMMARY | 2018-06-17 20:42 | XMS REPORT ---
:1940 Author Organization eClinicalWorks Care Team Providers Name Role Phone Laura, [facility] Provider Role Unavailable Allergies, Adverse Reactions, Alerts [...] Status Dosage System Date Date Citalopram [facility] 58673878936 20 MG Orally Active 1 tablet Hydrobromide Once a day Coumadin ND 35705151731 2 MG Orally Active 1 tablet Once a day Lipitor ND 15379070750 40 MG Active 1 TAB(S) ONCE A DAY ORALLY Meclizine HCl ND 21448752199 25 MG Orally Active 1 tablet Three times a day Ferrous Sulfate ND 65747470665 325 (65 Fe) MG May Active 1 tablet Orally Once a 2017 day Tresiba FlexTouch ND 38355441974 200 UNIT/ML Active not Subcutaneous defined Chlorthalidone ND 99227946898 25 MG Orally Active 1 tablet Once a day in the morning with food FreeStyle Lite [facility] 80160012658 0 Active CHECK Test BLOOD SUGAR TWICE DAILY Flonase Allergy [facility] 06866781127 50 MCG/ACT Active 1 spray in Relief Nasally Once a each day nostril Meclizine HCl [facility] 36708562765 25 Active CHEW AND SWALLOW 1 TABLET THREE TIMES DAILY Anastrozole [facility] 65730198992 1 MG Orally Active 1 tablet Once a day Protonix [facility] 97455893534 40 MG Active 1 TAB(S) ONCE A DAY ORALLY Losartan [facility] 31372396847 100 MG Orally Active 1 tablet Potassium Once a day Topamax [facility] 81693354403 50 MG Orally Active 1 tablet Once a day Protonix [facility] 95015966325 40 MG Orally Active 1 tablet Once a day Tresiba FlexTouch [facility] 67427936637 200 UNIT/ML Active 40 UNITS DAILY Results No Known Results Summary Purpose eClinicalWorks Submission
--- OUTSIDE RECORDS SUMMARY | 2018-06-17 20:42 | XMS REPORT ---
:1940 [facility] Address [address] [place] [address] Care Team Providers Name Role Phone Unavailable Unavailable Unavailable Problems This patient has no known problems. Allergies, Adverse Reactions, Alerts This patient has no known allergies or adverse reactions. Medications This patient has no known medications.
--- OUTSIDE RECORDS SUMMARY | 2018-06-17 20:42 | XMS REPORT ---
[...] Status Dosage System Date Date FreeStyle Lite [facility] 17542282545 0 Active CHECK Test BLOOD SUGAR TWICE DAILY Lipitor [facility] 58628554076 40 MG Active 1 TAB(S) ONCE A DAY ORALLY Losartan [facility] 33500427156 100 MG Orally Active 1 tablet Potassium Once a day Meclizine HCl [facility] 28109278500 25 Active CHEW AND SWALLOW 1 TABLET THREE TIMES DAILY Flonase Allergy [facility] 29691212735 50 MCG/ACT Active 1 spray in Relief Nasally Once a each day nostril Ferrous Sulfate [facility] 14237537575 325 (65 Fe) MG Active 1 tablet Orally Once a day Tresiba FlexTouch [facility] 36792502532 200 UNIT/ML Active 70 UNITS Subcutaneous DAILY Increase 2 untis after 3 day if BS are high Citalopram [facility] 11030071061 20 MG Orally Active 1 tablet Hydrobromide Once a day Chlorthalidone [facility] 21417028068 25 MG Orally Active 1 tablet Once a day in the morning with food Tresiba FlexTouch [facility] 14919013704 200 UNIT/ML Active not Subcutaneous defined Anastrozole [facility] 93549966175 1 MG Orally Active 1 tablet Once a day Topamax [facility] 17053944187 50 MG Orally Active 1 tablet Once a day Protonix [facility] 18808790322 40 MG Active 1 TAB(S) ONCE A DAY ORALLY Lipitor [facility] 75798160177 40 MG Orally Active 1 tablet Once a day Coumadin [facility] 86801288275 2 MG Orally Active 1 tablet Once a day BD Pen Needle [facility] 07954187613 0 Active USE DAILY Short U/F Citalopram [facility] 51653664317 20 Active TAKE 1 Hydrobromide TABLET BY MOUTH EVERY DAY Protonix [facility] 86669496816 40 MG Orally Active 1 tablet Once a day Results No Known Results Summary Purpose eClinicalWorks Submission
--- OUTSIDE RECORDS SUMMARY | 2018-06-17 20:43 | XMS REPORT ---
[...] Date Date Anastrozole [facility] 51231746200 1 MG Orally Active 1 tablet Once a day Lipitor [facility] 85055275175 40 MG Orally Active 1 tablet Once a day Protonix [facility] 52454800653 40 MG Orally Active 1 tablet Once a day Topamax [facility] 06299046161 50 MG Orally Active 1 tablet Once a day Ferrous Sulfate [facility] 49708310937 325 (65 Fe) MG Active 1 tablet Orally Once a day Lipitor [facility] 33909303290 40 Active 1 TAB(S) ONCE A DAY ORALLY Tresiba FlexTouch [facility] 74377244825 200 UNIT/ML Active 70 UNITS Subcutaneous DAILY Increase 2 untis after 3 day if BS are high HydrALAZINE HCl [facility] 51944892850 25 MG Orally Active 1 tablet Two times a day with food Tresiba FlexTouch [facility] 75594328207 200 UNIT/ML Active not Subcutaneous defined Tresiba FlexTouch [facility] 97137751800 200 UNIT/ML Active INJECT 70 UNITS UNDER THE SKIN EVERY DAY INCREASE 2 UNITS AFTER 3 DAYS IF BLOOD SUGAR IS HIGH FreeStyle Lite [facility] 78863847082 0 Active CHECK Test BLOOD SUGAR TWICE DAILY Losartan [facility] 47481214972 100 MG Orally Inactive 1 tablet Potassium Once a day Pantoprazole [facility] 65419437578 40 Active TAKE 1 Sodium TABLET BY MOUTH EVERY DAY Citalopram [facility] 23830128299 20 Active TAKE 1 Hydrobromide TABLET BY MOUTH EVERY DAY Meclizine HCl [facility] 82680149755 25 Active CHEW AND SWALLOW 1 TABLET THREE TIMES DAILY Citalopram [facility] 22452981624 20 MG Orally Active 1 tablet Hydrobromide Once a day Coumadin [facility] 63351746560 2 MG Orally Active 1 tablet Once a day Lipitor [facility] 25420367990 40 MG Active 1 TAB(S) ONCE A DAY ORALLY Chlorthalidone [facility] 41026886142 25 MG Orally Inactive 1 tablet Once a day in the morning with food Flonase Allergy [facility] 73337269661 50 MCG/ACT Active 1 spray in Relief Nasally Once a each day nostril Protonix [facility] 05966362643 40 MG Active 1 TAB(S) ONCE A DAY ORALLY BD Pen Needle [facility] 04774772595 0 Active USE DAILY Short U/F Results No Known Results Summary Purpose eClinicalWorks Submission
--- OUTSIDE RECORDS SUMMARY | 2018-06-17 20:43 | XMS REPORT ---
:1940 Author Organization eClinicalWorks Care Team Providers Name Role Phone Valentín [facility] Provider Role Unavailable Allergies No Known [...] End Date Status Dosage System Date [facility] [id number] - Oct 11, Active as directed [place] 2018 Results No Known Results Summary Purpose eClinicalNoom Submission
--- OUTSIDE RECORDS SUMMARY | 2018-06-17 20:43 | XMS REPORT ---
:1940 Author Organization eClinicalWorks Care Team Providers Name Role Phone [facility] Provider Role Unavailable Allergies No Known [...] Status Dosage System Date Date Ferrous Sulfate [facility] 51978155844 325 (65 Fe) MG Active 1 tablet Orally Once a day FreeStyle Lite [facility] 65782662458 0 Active CHECK BLOOD Test SUGAR TWICE DAILY Citalopram [facility] 35826113891 20 Active TAKE 1 Hydrobromide TABLET BY MOUTH EVERY DAY Meclizine HCl [facility] 56567541025 25 Active CHEW AND SWALLOW 1 TABLET THREE TIMES DAILY Lipitor ND 20902588295 40 MG Orally Active 1 tablet Once a day Flonase Allergy ND 50620272235 50 MCG/ACT Active 1 spray in Relief Nasally Once a each day nostril Pantoprazole [facility] 61939056865 40 Active TAKE 1 Sodium TABLET BY MOUTH EVERY DAY FreeStyle [facility] 18995620490 - Oct 11, Active as directed Lancets 2018 HydrALAZINE HCl [facility] 84963612287 25 MG Orally Active 1 tablet Two times a day with food Lyrica [facility] 67370952308 50 MG Orally Oct 30, Active 1 capsule Twice a day 2017 BD Pen Needle [facility] 42428639974 0 Active USE DAILY Short U/F Anastrozole [facility] 05639953959 1 MG Orally Active 1 tablet Once a day Topamax [facility] 94872100607 50 MG Orally Active 1 tablet Once a day Coumadin [facility] 50993284957 2 MG Orally Active 1 tablet Once a day Tresiba [facility] 48979876743 200 UNIT/ML Active INJECT 70 FlexTouch UNITS UNDER THE SKIN EVERY DAY INCREASE 2 UNITS AFTER 3 DAYS IF BLOOD SUGAR IS HIGH Results No Known Results Summary Purpose eClinicalWorks Submission
--- OUTSIDE RECORDS SUMMARY | 2018-06-17 20:43 | XMS REPORT ---
[...] End Status Dosage System Date Date Pantoprazole [facility] 37535403655 40 Active TAKE 1 Sodium TABLET BY MOUTH EVERY DAY Lipitor [facility] 52691844676 40 MG Orally Active 1 tablet Once a day Citalopram [facility] 17621498661 20 Active TAKE 1 Hydrobromide TABLET BY MOUTH EVERY DAY Lasix [facility] 27817223698 40 MG Orally Feb 13, Active 1 tablet Twice a day PRN 2019 for edema Losartan [facility] 81224900360 100 MG Orally Inactive 1 tablet Potassium Once a day Flonase Allergy [facility] 70525385020 50 MCG/ACT Active 1 spray in Relief Nasally Once a each day nostril Citalopram [facility] 52752434351 20 MG Orally Active 1 tablet Hydrobromide Once a day Lipitor [facility] 95835917009 40 Active 1 TAB(S) ONCE A DAY ORALLY Anastrozole [facility] 06807429101 1 MG Orally Feb 08, Active 1 tablet Once a day 2019 FreeStyle Lite [facility] 95967515704 0 Active CHECK Test BLOOD SUGAR TWICE DAILY Protonix [facility] 18930723177 40 MG Orally Active 1 tablet Once a day BD Pen Needle [facility] 48868358135 0 Active USE DAILY Short U/F Tresiba [facility] 82843887364 200 UNIT/ML Active INJECT 70 FlexTouch UNITS UNDER THE SKIN EVERY DAY INCREASE 2 UNITS AFTER 3 DAYS IF BLOOD SUGAR IS HIGH Coumadin [facility] 18559382454 2 MG Orally Active 1 tablet Once a day Ferrous Sulfate [facility] 74756540964 325 (65 Fe) MG Active 1 tablet Orally Once a day Meclizine HCl [facility] 67100380738 25 Active TAKE 1 TABLET BY MOUTH THREE TIMES DAILY HydrALAZINE HCl [facility] 04978960233 25 Orally Two Active 1 tablet times a day with food Topamax [facility] 16583449347 50 MG Orally Active 1 tablet Once a day FreeStyle [facility] 69157308199 - Oct 11, Active as Lancets 2018 directed Lyrica [facility] 74297011610 50 MG Orally Active 1 capsule Twice a day Lyrica [facility] 18168035859 50 Active TAKE 1 CAPSULE BY MOUTH TWICE DAILY HydrALAZINE HCl [facility] 93084536636 25 Orally Two Active 1 tablet times a day with food Tresiba [facility] 31484185725 200 UNIT/ML Active not FlexTouch Subcutaneous defined Results No Known Results Summary Purpose eClinicalWorks Submission
--- OUTSIDE RECORDS SUMMARY | 2018-06-17 20:44 | XMS REPORT ---
[...] Status Dosage System Date Date Tresiba [facility] 74583302696 200 UNIT/ML Active not defined FlexTouch Subcutaneous Coumadin [facility] 91360430588 2 MG Orally Active 1 tablet Once a day Ferrous Sulfate [facility] 65509359915 325 (65 Fe) MG Active 1 tablet Orally Once a day Protonix [facility] 95408548576 40 MG Orally Active 1 tablet Once a day BD Pen Needle [facility] 13202481875 0 Active USE DAILY Short U/F Lasix [facility] 65392639258 40 MG Orally Active 1 tablet Twice a day PRN for edema Lipitor [facility] 90545112775 40 MG Orally Active 1 tablet Once a day Lipitor [facility] 54251058158 40 Active 1 TAB(S) ONCE A DAY ORALLY HydrALAZINE HCl [facility] 71681489807 25 Orally Two Active 1 tablet times a day with food Pantoprazole [facility] 62332952306 40 Active TAKE 1 Sodium TABLET BY MOUTH EVERY DAY Januvia [facility] 84531790207 100 MG Orally April Active 1 tablet Once a day 2018 Flonase Allergy [facility] 11197045601 50 MCG/ACT Active 1 spray in Relief Nasally Once a each day nostril FreeStyle Lite [facility] 04665116944 0 Active CHECK BLOOD Test SUGAR TWICE DAILY Anastrozole ND 70525343315 1 MG Orally Active 1 tablet Once a day Lyrica [facility] 80305327079 75 MG Orally Active 1 capsule Twice a day FreeStyle [facility] 33783927476 - Oct 11, Active as directed Lancets 2018 Meclizine HCl [facility] 46087084138 25 Active TAKE 1 TABLET BY MOUTH THREE TIMES DAILY Citalopram [facility] 89864528375 20 MG Orally Active 1 tablet Hydrobromide Once a day Topamax [facility] 72115775775 50 MG Orally Active 1 tablet Once a day Tresiba [facility] 35102046969 200 UNIT/ML Active INJECT 70 FlexTouch UNITS UNDER THE SKIN EVERY DAY INCREASE 2 UNITS AFTER 3 DAYS IF BLOOD SUGAR IS HIGH Results No Known Results Summary Purpose eClinicalWorks Submission
--- OUTSIDE RECORDS SUMMARY | 2018-06-17 20:44 | XMS REPORT ---
[...] Status Dosage System Date Date Anastrozole ND 85538358767 1 MG Orally Active 1 tablet Once a day Protonix ND 88565402411 40 MG Orally Active 1 tablet Once a day Flonase Allergy ND 06060212882 50 MCG/ACT Active 1 spray in Relief Nasally Once a each day nostril Citalopram ND 18825133217 20 MG Orally Active 1 tablet Hydrobromide Once a day Furosemide ND 94701404124 20 MG Orally Active 1 tablet Once a day Lipitor [facility] 84753269273 40 Active 1 TAB(S) ONCE A DAY ORALLY Coumadin [facility] 08732313398 2 MG Orally Active 1 tablet Once a day BD Pen Needle [facility] 40444337600 0 Active USE DAILY Short U/F Lyrica [facility] 68019236036 50 MG Orally Active 1 capsule Twice a day Lasix [facility] 91854048712 40 MG Orally Active 1 tablet Twice a day PRN for edema Meclizine HCl [facility] 35187191702 25 Active TAKE 1 TABLET BY MOUTH THREE TIMES DAILY FreeStyle Lite [facility] 47470942875 0 Active CHECK BLOOD Test SUGAR TWICE DAILY Tresiba [facility] 83194113069 200 UNIT/ML Active INJECT 70 FlexTouch UNITS UNDER THE SKIN EVERY DAY INCREASE 2 UNITS AFTER 3 DAYS IF BLOOD SUGAR IS HIGH Lipitor [facility] 44265495190 40 MG Orally Active 1 tablet Once a day Tresiba [facility] 61935798675 200 UNIT/ML Active not defined FlexTouch Subcutaneous Pantoprazole [facility] 57333103219 40 Active TAKE 1 Sodium TABLET BY MOUTH EVERY DAY HydrALAZINE HCl [facility] 66666723781 25 Orally Two Active 1 tablet times a day with food Ferrous Sulfate [facility] 90191627601 325 (65 Fe) MG Active 1 tablet Orally Once a day Topamax [facility] 98485153700 50 MG Orally Active 1 tablet Once a day FreeStyle [facility] 06606771759 - Oct 11, Active as directed Lancets 2018 Results No Known Results Summary Purpose eClinicalWorks Submission
--- OUTSIDE RECORDS SUMMARY | 2018-06-17 20:44 | XMS REPORT ---
[...] Status Dosage System Date Date HydrALAZINE HCl [facility] 74321216733 25 Orally Two Active 1 tablet times a day with food Flonase Allergy [facility] 60528568189 50 MCG/ACT Active 1 spray in Relief Nasally Once a each day nostril Topamax [facility] 99123870906 50 MG Orally Active 1 tablet Once a day Tresiba [facility] 48540238178 200 UNIT/ML Active not defined FlexTouch Subcutaneous FreeStyle [facility] 63851663481 - Oct 11, Active as directed Lancets 2018 Anastrozole [facility] 53376821688 1 MG Orally Active 1 tablet Once a day BD Pen Needle [facility] 78761447073 0 Active USE DAILY Short U/F Lyrica [facility] 45880487813 50 MG Orally Active 1 capsule Twice a day Meclizine HCl [facility] 36232685522 25 Active TAKE 1 TABLET BY MOUTH THREE TIMES DAILY Coumadin [facility] 53188806222 2 MG Orally Active 1 tablet Once a day Tresiba [facility] 04848838394 200 UNIT/ML Active INJECT 70 FlexTouch UNITS UNDER THE SKIN EVERY DAY INCREASE 2 UNITS AFTER 3 DAYS IF BLOOD SUGAR IS HIGH FreeStyle Lite [facility] 40806054117 0 Active CHECK BLOOD Test SUGAR TWICE DAILY Protonix [facility] 73989399814 40 MG Orally Active 1 tablet Once a day Citalopram [facility] 85139306024 20 MG Orally Active 1 tablet Hydrobromide Once a day Lipitor [facility] 67032741613 40 Active 1 TAB(S) ONCE A DAY ORALLY Lipitor [facility] 10830500846 40 MG Orally Active 1 tablet Once a day Lasix [facility] 88609430977 40 MG Orally Active 1 tablet Twice a day PRN for edema Ferrous Sulfate [facility] 95881768428 325 (65 Fe) MG Active 1 tablet Orally Once a day Pantoprazole [facility] 70211513845 40 Active TAKE 1 Sodium TABLET BY MOUTH EVERY DAY Results No Known Results Summary Purpose eClinicalWorks Submission
[2018-06-17 20:48] VITALS: BMI 36.3
[2018-06-17] MEDS ORDERED: FUROSEMIDE 40 MG TABLET PO PRN (20:51)
[2018-06-17] MEDS ORDERED: ALPRAZOLAM 0.25 MG TABLET PO PRN (20:52)
[2018-06-17] MEDS ORDERED: MECLIZINE HCL 12.5 MG TAB PO PRN (20:55)
[2018-06-17] MEDS ORDERED: GLUCAGON 1 MG/VIAL IM PRN (21:00)
[2018-06-17] MEDS ORDERED: D50W 25 GM/50 ML SYRINGE IV PRN (21:00)
[2018-06-17] MEDS: INSULIN -REGULAR HUMAN 50 UNIT/0.5 ML ML SQ SCH (21:00)
[2018-06-17] MEDS: ATORVASTATIN 40 MG TAB PO SCH (21:40)
[2018-06-17] MEDS: AMOX/K CLAV 500 MG TAB PO SCH (21:41)
[2018-06-17] MEDS: FERROUS SULFATE 325 MG TAB PO SCH (21:41)
--- NOTE | 2018-06-18 01:22 | FAST ---
SHIFT START DATE/TIME: 06/17/2018 19:00 (CDT) SHIFT END DATE/TIME: 06/18/2018 07:00 (CDT) NAME SARI PERES DATE OF : 1940 DATE OF ADMISSION: 06/17/2018 20:40 (CDT) PHONE: AGE: 77 SSN# [id number] GENDER: Female ENCOUNTER PHYSICIAN: Dr. Huan Pepe M.D. ADMISSION DIAGNOSIS: - Medically Complex Conditions 17 - Other Medically Complex Conditions (17.9) Chronic Kidney Disease. EATING: Activity did not occur on this shift EATING - SCORE: 0-UNK GROOMING: Activity did not occur on this shift GROOMING - SCORE: 0-UNK BATHING: Activity did not occur on this shift BATHING - SCORE: 0-UNK DRESSING - UPPER BODY: Patient is not dressing in public clothing ARTICLES SCORE Total number of steps: 0 DRESSING - UPPER BODY - SCORE: 0-UNK DRESSING - LOWER BODY: Patient is not dressing in public clothing ARTICLES SCORE Total number of steps: 0 DRESSING - LOWER BODY - SCORE: 0-UNK TOILETING: TOILETING - STEP 1: Does the patient require the assistance of a person or device, or need extra time with toileting? Yes . TOILETING - STEP 2: Does the patient require the assistance of a helper? Yes. TOILETING - STEP 3: How much assistance does the patient require from the helper? Hands-on assistance from the helper TOILETING - STEP 4: Of the 3 tasks: 1) Adjusting clothing prior to use, 2) Cleansing of perineal area, 3) Adjusting clot julian after use; How many tasks does the patient perform WITHOUT assistance of the helper? No tasks; h elper performs all three tasks TOILETING - SCORE: 1-DEP BLADDER MANAGEMENT: [place] removes incontinent device (Depends, pull ups, etc.); cleans the patient after accident / inco ntinent episode; and, applies new incontinent device. BLADDER MANAGEMENT - SCORE: 1-DEP BLADDER MANAGEMENT - FREQUENCY OF ACCIDENTS: BLADDER MANAGEMENT(FA) - STEP 1: How many accidents has the patient had during the current shift? 1 BOWEL MANAGEMENT: Activity did not occur on this shift BOWEL MANAGEMENT - SCORE: 7-IND TRANSFERS: BED, CHAIR, WHEELCHAIR: TRANSFERS: BED, CHAIR, WHEELCHAIR - STEP 1: Does the patient require assistance of a person or device, or need extra time with bed, chair, or whe elchair transfers? Yes. TRANSFERS: BED, CHAIR, WHEELCHAIR - STEP 2: Does the patient require the assistance of a helper? Yes. TRANSFERS: BED, CHAIR, WHEELCHAIR - STEP 3: How much assistance does the patient require from the helper? Lifting of the legs TRANSFERS: BED, CHAIR, WHEELCHAIR - STEP 4: How many legs does the patient require the helper to lift? both legs TRANSFERS: BED, CHAIR, WHEELCHAIR - SCORE: 3-MOD TRANSFERS: TOILET: TRANSFERS: TOILET - STEP 1: Does the patient require the assistance of a person or device, or need extra time with toilet transfe rs? Yes. TRANSFERS: TOILET - STEP 2: Does the patient require the assistance of a helper? Yes. TRANSFERS: TOILET - STEP 3: How much assistance does the patient require from the helper? Patient performs half or more of the tr ansferring tasks TRANSFERS: TOILET - STEP 4: Does the patient need only incidental help such as contact guard or steadying during toilet transfer? No. Patient needs more than incidental help TRANSFERS: TOILET - SCORE: 3-MOD TRANSFERS: SHOWER: Activity did not occur on this shift TRANSFERS: SHOWER - SCORE: 0-UNK TRANSFERS: TUB: Activity did not occur on this shift TRANSFERS: TUB - SCORE: 0-UNK LOCOMOTION: WALK: Activity did not occur on this shift LOCOMOTION: WALK - SCORE: 0-UNK LOCOMOTION: WHEELCHAIR: Activity did not occur on this shift LOCOMOTION: WHEELCHAIR - SCORE: 0-UNK COMPREHENSION: COMPREHENSION: TYPE: Both COMPREHENSION - STEP 1: Does the patient require help from a person or device, or need extra time to understand complex and a bstract ideas (such as current events, finances, discharge planning, medical issues, relationships, e tc)? Yes. COMPREHENSION - STEP 2: Does the patient require help to understand questions or statements about basic needs or ideas (such as hunger, thirst, sleep, safety, daily schedule, room location, or discomfort) half or more of the t lizeth? No. COMPREHENSION - STEP 3: How often does the patient need help to understand directions and conversation about basic needs? Les s than 10% of the time COMPREHENSION - SCORE: 5-SUP EXPRESSION EXPRESSION: TYPE: Both EXPRESSION - STEP 1: Does the patient require help from a person or device, or need extra time expressing complex and abst ract ideas (such as current events, finances, discharge planning, medical issues, relationships, etc) ? Yes. EXPRESSION - STEP 2: Does the patient require help to express basic necessities or ideas (such as hunger, thirst, sleep, s afety, daily schedule, room location, or discomfort) half or more of the time? No. EXPRESSION - STEP 3: How often does the patient need help to express directions and conversation about basic needs? Less t anne 10% of the time EXPRESSION - SCORE: 5-SUP SOCIAL INTERACTION: SOCIAL INTERACTION - STEP 1: Does the patient require a helper to interact with others in social and therapeutic situations? No. SOCIAL INTERACTION - STEP 2: Does the patient need extra time in social situations, OR does s/he interact with staff, other patien ts, and family members ONLY in structured environments, OR does s/he require medication for social in teraction? No. SOCIAL INTERACTION - SCORE: 7-IND PROBLEM SOLVING: PROBLEM SOLVING - STEP 1: Does the patient need help from a person or device, or need extra time to solve complex problems such as managing a checking account or confronting interpersonal problems? Yes. PROBLEM SOLVING - STEP 2: Does the patient solve basic routine problems half or more of the time? Yes. PROBLEM SOLVING - STEP 3: How often does the patient need help to solve basic routine problems? Less than 10% of the time PROBLEM SOLVING - SCORE: 5-SUP MEMORY: MEMORY - STEP 1: Does the patient need help from a person or device, or need extra time to remember frequently encount ered people, daily routines, and executing requests? No. MEMORY - STEP 2: Does the patient have slight difficulty recognizing frequently encountered people, daily routines, or executing requests without the need for repetition or using self-initiated or environmental cues to remember? No. MEMORY - SCORE: 7-IND SIGNATURE PANEL: The following modified sections: Eating - Score, Grooming - Score, Bathing - Score, Dressing - Upper Body - Score, Dressing - Lower Body - Score, Toileting - Score, Bladder Management - Score, Bowel Man agement - Score, Transfers: Bed, Chair, Wheelchair - Score, Transfers: Toilet - Score, Transfers: Thelma wer - Score, Transfers: Tub - Score, Locomotion: Walk - Score, Locomotion: Wheelchair - Score, Compre hension - Score, Expression - Score, Social Interaction - Score, Problem Solving - Score, Memory - Sc ore were [electronically] signed by Leann Askew RN on SunJun 18 2018 01:22:31 T-0500 ([facility] Time)
[2018-06-18 05:50] LABS: Absolute Monocytes 0.4 K/uL (0.1-1.3); Absolute Neutrophil 4.1 K/uL (1.8-8.0); Basophils % 0.6 % (0-1.3); Eosinophils % 6.8 % (0-4.4); Hematocrit 30.8 % (36.0-45.0); Lymphocytes % 29.1 % (15.3-44.8); MPV 9.3 fL (7.6-11.3); Monocytes % 5.7 % (3.3-12.3); RBC Red Blood Cell Count 3.32 M/uL (3.86-4.86)
[2018-06-18 05:51] LABS: Protime INR 1.99
[2018-06-18 06:17] LABS: Albumin 2.7 g/dL (3.4-5.0); Potassium 4.8 mmol/L (3.5-5.1); Prealbumin 11.3 mg/dL (20-40)
[2018-06-18] MEDS: PANTOPRAZOLE 40MG TABLET PO SCH (06:51)
[2018-06-18] MEDS: TRESIBA U SQ SCH (07:50)
[2018-06-18] MEDS: INSULIN -REGULAR HUMAN 50 UNIT/0.5 ML ML SQ SCH ×4 (07:52→21:13)
[2018-06-18] MEDS: AMOX/K CLAV 500 MG TAB PO SCH ×2 (07:59→20:32)
[2018-06-18] MEDS: ASPIRIN 81 MG CHEWABLE TABLET PO SCH (07:59)
[2018-06-18] MEDS: METOPROLOL XL 50 MG TAB PO SCH (07:59)
[2018-06-18] MEDS: CITALOPRAM 10 MG TABLET PO SCH (07:59)
[2018-06-18] MEDS: FERROUS SULFATE 325 MG TAB PO SCH ×3 (07:59→20:32)
[2018-06-18] MEDS: ANASTROZOLE 1 MG TAB PO SCH (10:00)
[2018-06-18] MEDS: RAMIPRIL 2.5 MG CAP PO SCH (10:00)
[2018-06-18] MEDS: CHLORTHALIDONE 25 MG TAB PO SCH (10:00)
--- NOTE | 2018-06-18 10:12 | FAST ---
SHIFT START DATE/TIME: 06/18/2018 07:00 (CDT) SHIFT END DATE/TIME: 06/18/2018 19:00 (CDT) NAME SARI PERES DATE OF : 1940 DATE OF ADMISSION: 06/17/2018 20:40 (CDT) PHONE: AGE: 77 SSN# [id number] GENDER: Female ENCOUNTER PHYSICIAN: Dr. Huan Pepe M.D. ADMISSION DIAGNOSIS: - Medically Complex Conditions 17 - Other Medically Complex Conditions (17.9) Chronic Kidney Disease. EATING: EATING - STEP 1: Does the patient require the assistance of a person or device, or need extra time when eating? Yes. EATING - STEP 2: Does the patient require the assistance of a helper? Yes. EATING - STEP 3: Does the patient perform half or more of the eating tasks? Yes. EATING - STEP 4: Does the patient need only supervision, cuing, coaxing OR help to apply an orthosis OR help to cut fo od, open containers, pour liquids, or butter bread? Yes. EATING - SCORE: 5-SUP GROOMING: Comb/brush hair Oral care Wash, rinse, and dry face Wash, rinse, and dry hands GROOMING - STEP 1: Does the patient require the assistance of a person or device, or need extra time when grooming? Yes. GROOMING - STEP 2: Does the patient require the assistance of a helper? Yes. GROOMING - STEP 3: How much assistance does the patient require from the helper? Only prior equipment preparation/set up from the helper GROOMING - SCORE: 5-SUP BATHING: Activity did not occur on this shift BATHING - SCORE: 0-UNK DRESSING - UPPER BODY: Activity did not occur on this shift ARTICLES SCORE Total number of steps: 0 DRESSING - UPPER BODY - SCORE: 0-UNK DRESSING - LOWER BODY: Activity did not occur on this shift ARTICLES SCORE Total number of steps: 0 DRESSING - LOWER BODY - SCORE: 0-UNK TOILETING: TOILETING - STEP 1: Does the patient require the assistance of a person or device, or need extra time with toileting? Yes . TOILETING - STEP 2: Does the patient require the assistance of a helper? Yes. TOILETING - STEP 3: How much assistance does the patient require from the helper? Hands-on assistance from the helper TOILETING - STEP 4: Of the 3 tasks: 1) Adjusting clothing prior to use, 2) Cleansing of perineal area, 3) Adjusting clot julian after use; How many tasks does the patient perform WITHOUT assistance of the helper? Two tasks TOILETING - SCORE: 3-MOD BLADDER MANAGEMENT: [place] removes incontinent device (Depends, pull ups, etc.); cleans the patient after accident / inco ntinent episode; and, applies new incontinent device. BLADDER MANAGEMENT - SCORE: 1-DEP BLADDER MANAGEMENT - FREQUENCY OF ACCIDENTS: BLADDER MANAGEMENT(FA) - STEP 1: How many accidents has the patient had during the current shift? 2 BOWEL MANAGEMENT: BOWEL MANAGEMENT - STEP 1: Does the patient control bowels completely and intentionally without equipment devices or medications AND is always continent? No. BOWEL MANAGEMENT - STEP 2: Does the patient require the assistance of a helper? No, patient requires and manages independently a n assistive device such as a bedpan, bedside commode, absorbent pad, incontinent device, or collectin g device BOWEL MANAGEMENT - SCORE: 6-RONEN TRANSFERS: BED, CHAIR, WHEELCHAIR: TRANSFERS: BED, CHAIR, WHEELCHAIR - STEP 1: Does the patient require assistance of a person or device, or need extra time with bed, chair, or whe elchair transfers? Yes. TRANSFERS: BED, CHAIR, WHEELCHAIR - STEP 2: Does the patient require the assistance of a helper? Yes. TRANSFERS: BED, CHAIR, WHEELCHAIR - STEP 3: How much assistance does the patient require from the helper? Lifting of the legs TRANSFERS: BED, CHAIR, WHEELCHAIR - STEP 4: How many legs does the patient require the helper to lift? one leg TRANSFERS: BED, CHAIR, WHEELCHAIR - SCORE: 4-MIN TRANSFERS: TOILET: TRANSFERS: TOILET - STEP 1: Does the patient require the assistance of a person or device, or need extra time with toilet transfe rs? Yes. TRANSFERS: TOILET - STEP 2: Does the patient require the assistance of a helper? Yes. TRANSFERS: TOILET - STEP 3: How much assistance does the patient require from the helper? Patient performs half or more of the tr ansferring tasks TRANSFERS: TOILET - STEP 4: Does the patient need only incidental help such as contact guard or steadying during toilet transfer? Yes. TRANSFERS: TOILET - SCORE: 4-MIN TRANSFERS: SHOWER: Activity did not occur on this shift TRANSFERS: SHOWER - SCORE: 0-UNK TRANSFERS: TUB: Activity did not occur on this shift TRANSFERS: TUB - SCORE: 0-UNK LOCOMOTION: WALK: Activity did not occur on this shift LOCOMOTION: WALK - SCORE: 0-UNK LOCOMOTION: WHEELCHAIR: Activity did not occur on this shift LOCOMOTION: WHEELCHAIR - SCORE: 0-UNK COMPREHENSION: COMPREHENSION: TYPE: Both COMPREHENSION - STEP 1: Does the patient require help from a person or device, or need extra time to understand complex and a bstract ideas (such as current events, finances, discharge planning, medical issues, relationships, e tc)? No. COMPREHENSION - STEP 2: Does the patient need extra time, require an assistive device (such as glasses for visual comprehensi on or a hearing aid for auditory comprehension) or does s/he have mild difficulty understanding compl ex and abstract information? Yes. COMPREHENSION - SCORE: 6-RONEN EXPRESSION EXPRESSION: TYPE: Both EXPRESSION - STEP 1: Does the patient require help from a person or device, or need extra time expressing complex and abst ract ideas (such as current events, finances, discharge planning, medical issues, relationships, etc) ? No. EXPRESSION - STEP 2: Does the patient need extra time, require an assistive device (such as augmentive communication syste m or a communication board), OR does s/he have mild difficulty expressing complex and abstract ideas (including mild dysarthria or mild word-find problems)? Yes. EXPRESSION - SCORE: 6-RONEN SOCIAL INTERACTION: SOCIAL INTERACTION - STEP 1: Does the patient require a helper to interact with others in social and therapeutic situations? No. SOCIAL INTERACTION - STEP 2: Does the patient need extra time in social situations, OR does s/he interact with staff, other patien ts, and family members ONLY in structured environments, OR does s/he require medication for social in teraction? Yes, patient needs extra time SOCIAL INTERACTION - SCORE: 6-ORNEN PROBLEM SOLVING: PROBLEM SOLVING - STEP 1: Does the patient need help from a person or device, or need extra time to solve complex problems such as managing a checking account or confronting interpersonal problems? No. PROBLEM SOLVING - STEP 2: Does the patient require extra time to make decisions or solve problems, OR does s/he have slight dif ficulty reading, initiating, or self-correcting in unfamiliar situations? Yes, patient needs extra ti me. PROBLEM SOLVING - SCORE: 6-RONEN MEMORY: MEMORY - STEP 1: Does the patient need help from a person or device, or need extra time to remember frequently encount ered people, daily routines, and executing requests? No. MEMORY - STEP 2: Does the patient have slight difficulty recognizing frequently encountered people, daily routines, or executing requests without the need for repetition or using self-initiated or environmental cues to remember? Yes. MEMORY - SCORE: 6-RONEN SIGNATURE PANEL: The following modified sections: Eating - Score, Grooming - Score, Bathing - Score, Dressing - Upper Body - Score, Dressing - Lower Body - Score, Toileting - Score, Bladder Management - Score, Bowel Man agement - Score, Transfers: Bed, Chair, Wheelchair - Score, Transfers: Toilet - Score, Transfers: Thelma wer - Score, Transfers: Tub - Score, Locomotion: Walk - Score, Locomotion: Wheelchair - Score, Compre hension - Score, Expression - Score, Social Interaction - Score, Problem Solving - Score, Memory - Sc ore were [electronically] signed by Demetris Klein on SunJun 18 2018 10:11:28 GMT-0500 (Central Daylight Time)
--- NOTE | 2018-06-18 15:22 | FAST ---
ENCOUNTER DATE AND TIME: 06/18/2018 08:00 (CDT) NAME SARI PERES DATE OF : 1940 DATE OF ADMISSION: 06/17/2018 20:40 (CDT) PHONE: AGE: 77 SSN# [id number] GENDER: Female ENCOUNTER PHYSICIAN: Dr. Huan Pepe M.D. ADMISSION DIAGNOSIS: - Medically Complex Conditions 17 - Other Medically Complex Conditions (17.9) Chronic Kidney Disease. EATING: Activity did not occur on this shift EATING - SCORE: 0-UNK GROOMING: Activity did not occur on this shift GROOMING - SCORE: 0-UNK BATHING: Activity did not occur on this shift BATHING - SCORE: 0-UNK DRESSING - UPPER BODY: Activity did not occur on this shift Patient is not dressing in public clothing ARTICLES SCORE Total number of steps: 0 DRESSING - UPPER BODY - SCORE: 0-UNK DRESSING - LOWER BODY: Activity did not occur on this shift Patient is not dressing in public clothing ARTICLES SCORE Total number of steps: 0 DRESSING - LOWER BODY - SCORE: 0-UNK TOILETING: Activity did not occur on this shift TOILETING - SCORE: 0-UNK BLADDER MANAGEMENT: Activity did not occur on this shift BLADDER MANAGEMENT - SCORE: 7-IND BOWEL MANAGEMENT: Activity did not occur on this shift BOWEL MANAGEMENT - SCORE: 7-IND TRANSFERS: BED, CHAIR, WHEELCHAIR: TRANSFERS: BED, CHAIR, WHEELCHAIR - STEP 1: Does the patient require assistance of a person or device, or need extra time with bed, chair, or whe elchair transfers? Yes. TRANSFERS: BED, CHAIR, WHEELCHAIR - STEP 2: Does the patient require the assistance of a helper? Yes. TRANSFERS: BED, CHAIR, WHEELCHAIR - STEP 3: How much assistance does the patient require from the helper? Steadying/guiding assistance TRANSFERS: BED, CHAIR, WHEELCHAIR - SCORE: 4-MIN TRANSFERS: TOILET: Activity did not occur on this shift TRANSFERS: TOILET - SCORE: 0-UNK TRANSFERS: SHOWER: Activity did not occur on this shift TRANSFERS: SHOWER - SCORE: 0-UNK TRANSFERS: TUB: Activity did not occur on this shift TRANSFERS: TUB - SCORE: 0-UNK LOCOMOTION: WALK: LOCOMOTION: WALK - STEP 1: Does the patient need help from a person or device, or need extra time to walk 150 feet? Yes. LOCOMOTION: WALK - STEP 2: How much assistance does the patient require to walk a minimum of 150 feet? Patient walks less than 1 50 feet - but more than 50 feet - with the assistance of only one helper LOCOMOTION: WALK - SCORE: 2-MAX LOCOMOTION: WHEELCHAIR: Activity did not occur on this shift LOCOMOTION: WHEELCHAIR - SCORE: 0-UNK LOCOMOTION: STAIRS: Activity did not occur on this shift LOCOMOTION: STAIRS - SCORE: 0-UNK COMPREHENSION: COMPREHENSION - SCORE: 0-UNK EXPRESSION EXPRESSION - SCORE: 0-UNK SOCIAL INTERACTION: SOCIAL INTERACTION - SCORE: 0-UNK PROBLEM SOLVING: PROBLEM SOLVING - SCORE: 0-UNK MEMORY: MEMORY - SCORE: 0-UNK SIGNATURE PANEL: The following modified sections: Transfers: Bed, Chair, Wheelchair - Score, Transfers: Toilet - Score , Locomotion: Walk - Score, Locomotion: Wheelchair - Score, Locomotion: Stairs - Score were [electron icaelio] signed by Silas Marion PT on SunJun 18 2018 15:21:52 T-0500 (Central Daylight Time)
[2018-06-18] MEDS: WARFARIN SODIUM 2 MG TAB PO SCH (16:41)
[2018-06-18] MEDS ORDERED: WARFARIN SODIUM 2 MG TAB PO SCH (17:00)
--- NOTE | 2018-06-18 17:42 | R.HP ---
FACILITY: [facility] ENCOUNTER DATE AND TIME: 06/18/2018 17:36 (CDT) MR#: [id number] NAME SARI PERES ADDRESS: [address] CITY: [place] [address] [id number] PHONE: DATE OF : 1940 AGE: 77 SSN# [id number] GENDER: Female DEXTERITY Right-handed [facility] [employer] [facility] PRE-HOSPITAL LIVING SETTING 01 - Home (private home/apt. board/care, assisted living, custodial, transitional living) PRE-HOSPITAL LIVING WITH Attendant ENCOUNTER PHYSICIAN: Dr. Huan Pepe M.D. REFERRING DOCTOR: bronson Laura DATE OF ADMISSION: 06/17/2018 20:40 (CDT) REFERRING FACILITY [facility] HOME TYPE AND DETAILS: Type of home: single family house # of steps to enter the residence: 0 # of steps within the residence: 0 # of levels in the residence: 1 ADMISSION DIAGNOSIS: Chronic Kidney Disease ONSET DATE: 06/16/2018 PRIMARY DIAGNOSIS-RELATED SURGERIES: No surgeries related to the primary diagnosis were performed. 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 is a 77 yo Right-handed female. On 06/16/2018 she was admitted to [facility] with diagnosis Chronic Kidney Dise ase. Her impairment category is Medically Complex Conditions 17 - Other Medically Complex Conditions (17. 9). Pre-morbidly, Pt. was independent/mod-I in Self-Care, Sphincter Control, Transfers Control, Locomotio n, and Communication; and she had good Sphincter Control. Currently, she has deficits of Transfers Control, Locomotion, Communication, Social Cognition, Endura nce, Balance, Safety Awareness, and Self-Care. Pt. is now referred to [facility] for acute in-patient rehabilitation in order to maximize patient's functional independence in activities of daily living, strength, ROM, and mobi lity. Patient has realistic goal of being discharged at assistance level 6-Melvin to reside at Home with Att endant. MEDICATION ALLERGIES: quinolones ENVIRONMENTAL ALLERGIES: - Substance Allergies None Known - Other Allergies None Known PAST MEDICAL HISTORY: ATRIAL FIBRILLATION CHF CORONARY ARTERY DISEASE HYPERLIPIDEMIA Type 2 diabetes mellitus with diabetic chronic kidney disease (E11.22) UTI hypertension weakness FAMILY HISTORY: Family history is not contributory. REVIEW OF SYSTEMS: - Gen No Chills Fatigue No Fever - Eyes No Double Vision No itchiness - ENMT No Difficulty Swallowing - CVS No Chest Discomfort No Chest Pain No Fatigue No Weight Gain - Resp No Cough No Shortness of Breath - GI Continent No Abdominal Pain No Constipation No Diarrhea - Continent No Kidney Pain No Painful Urination No Urinary Urgency - MSK Joint Pain Muscle Cramps Stiffness - Skin No Itching No Rash No Suspicious Lesions - Neuro Coordination Difficulty No Difficulty with Concentration No Memory Loss No Seizures Weakness - Psych No Anxiety No Depression No HIV Exposure No Persistent Infections No Seasonal Allergies - Endo No Cold/Heat Intolerance No Excessive Hunger No Excessive Thirst No Excessive Urination PHYSICAL EXAM - Gen Alert and awake Lying in bed No apparent distress Oriented to: person, time, and place - Skin No breakdown No abnormalities - Eyes No abnormalities - ENMT No abnormalities - Neck No abnormalities - CVS RRR - Chest No abnormalities - Abd Soft - GI nondistended Deferred - No abnormalities - Ext No significant edema. Right lower extremity in knee immobilizer due to moderate right medial meniscus tear. - MSK 4+/5 weakness in right lower extremity - Neuro 4/5 strength right lower extremity. - Psych No abnormalities VITAL SIGNS Temperature: 97.1 F SBP/DBP: 150/63 Pulse: 65 Resp: 18 NURSING: - Shower allowing shower - Lab Results blood Sugar Check ACHS PRECAUTIONS: - Weight Bearing Precaution NWB right LE ACTIVITIES OOB only with supervision FUNCTIONAL STATUS: - Self-Care A. Eating Ind Ind B. Grooming Ind Ind C. Bathing Ind Ind D. Dressing - Upper Ind Ind E. Dressing - Lower Ind maxA F. Toileting Ind Dep - Sphincter Control G: Bladder control Ind Ind H: Bowel control Ind Ind - Transfers Control I. Bed/Chair/Wheelchair Ind maxA J. Toilet Ind maxA K. Tub/Shower Ind maxA - Locomotion L. Walk/Wheelchair (B) Ind Dep M. Stairs Ind ADNO - Communication N. Comprehension (B) sup Matty O. Expression (B) Melvin Matty - Social Cognition P. Social Interaction sup Matty Q. Problem Solving Matty modA R. Memory Matty Matty - Endurance Poor - Balance Poor - Safety Awareness Poor CURRENT FUNC. DEFICITS: Transfers Control, Locomotion, Communication, Social Cognition, Endurance, Balance, Safety Awareness, and Self-Care ASSESSMENT: Pt. is a 77 yo Right-handed female.On 06/16/[address] [facility] with diagnosis Chronic Kidney Disease.Her impairment category is Medically Complex Conditio ns 17 - Other Medically Complex Conditions (17.9).Pre-morbidly, Pt. was independent/mod-I in Self-Ca re, Sphincter Control, Transfers Control, Locomotion, and Communication; and she had good Sphincter C ontrol.Currently, she has deficits of Transfers Control, Locomotion, Communication, Social Cognition, Endurance, Balance, Safety Awareness, and Self-Care.Pt. is now referred to [facility] for acute in-patient rehabilitation in order to maximize patient's functional independence i n activities of daily living, strength, ROM, and mobility.- Rehab Goal Patient has realistic goal of being discharged at assistance level 6-Melvin to reside at Home with Att endant. REHAB PLAN: - Physical Therapy Gait dysfunction - to improve, our physical therapists will perform initial evaluation of pt's status upon admission and devise an individualized program for Gait Training, and Wheel Chair mobility Inability to transfer - to improve, our physical therapists will perform initial evaluation of pt's s tatus upon admission and devise an individualized program for Bed mobility Need for home safety evaluation - to improve, our physical therapists will perform initial evaluation of pt's status upon admission and devise an individualized program for Home Evaluation Need in caregiver upon discharge - to improve, our physical therapists will perform initial evaluatio n of pt's status upon admission and devise an individualized program for Caregiver Training New precaution - to improve, our physical therapists will perform initial evaluation of pt's status u courtney admission and devise an individualized program for Patient precaution education Edema - to improve, our physical therapists will perform initial evaluation of pt's status upon admi ssion and devise an individualized program for Elevation Training, and Lymphedema Therapy Poor balance - to improve, our physical therapists will perform initial evaluation of pt's status upo n admission and devise an individualized program for Balance Training Poor endurance - to improve, our physical therapists will perform initial evaluation of pt's status u courtney admission and devise an individualized program for Endurance Training Weakness - to improve, our physical therapists will perform initial evaluation of pt's status upon ad mission and devise an individualized program for Aquatic Therapy, Neuromuscular Reeducation, and Stre ngthening Achieving independence - to improve, our physical therapists will perform initial evaluation of pt's status upon admission and devise an individualized program for Community Reintegration Activities - Occupational Therapy ADL deficits - to improve, our occupation therapists will perform initial evaluation of pt's status u courtney admission and devise an individualized program for Bathing, Bed mobility, Community Reintegration , Cooking, Dressing, Eating, Fine Motor Skills, Grooming, Homemaking, Kitchen Mobility, Laundry, Chelsea ent Education, Safety Awareness, Splinting - Positioning, Transfers(Toilet, Tub, Shower), and Wheel C hair Management Cognitive deficits - to improve, our occupation therapists will perform initial evaluation of pt's st atus upon admission and devise an individualized program for Cognition - orientation Need for wound care physician - to improve, our occupation therapists will perform initial evaluation of pt's s tatus upon admission and devise an individualized program for Caregiver Training Weakness - to improve, our occupation therapists will perform initial evaluation of pt's status upon admission and devise an individualized program for Aquatic Therapy, Balance, Endurance, UE ROM, and U E strengthening MEDICAL PLAN: - Diet Type Start Regular - Diet - Liquid Texture Start Regular - Tube Feed Start N/A - Lab Results blood Sugar Check ACHS - Weight Bearing Precaution NWB right LE - Diet - Solid Texture Regular - Shower shower DISCHARGE PLAN: - Estimated Length of Stay (days) 13. - Consensus on plan Discharge plan has been discussed with primary caregiver. Patient/Family is in agreement with the esperanza n. Primary caregiver is in agreement with the plan. - Patient/Family Goals Return home with assistance. - Planned Living Setting Upon Discharge Home, to live with Attendant. Primary caregiver: Attendant. SIGNATURE PANEL: (CDT)
--- NOTE | 2018-06-18 17:43 | PAPE ---
PATIENT: [id number] [id number] REFERR[facility] DOCTOR bronson Laura EVALUATION DATE AND TIME 06/18/2018 17:41 (CDT) NAME SARI PERES DATE OF 1940 AGE 77 PHONE N# [id number] GENDER female EVALUATING PHYSICIAN Dr. Huan Pepe M.D. 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 PATIENT NEEDS CLOSE MEDICAL SUPERVISION BY A REHABILITATION PHYSICIAN FOR: Bowel and Bladder Management Coordination of Treatment Team Diabetes Management Medical and Co-Morbidity Management PATIENT REQUIRES 24X7 REHAB NURSING FOR MEDICAL AND FUNCTIONAL MGT. OF THE FOLLOWING DEFICITS: ADL's Ambulation Bowel and Bladder Management Cognition Communication Disease Management Medication Management Patient/Family Education Providing Safe Environment Transfers PATIENT REQUIRES INTENSIVE, COORDINATED INTERDISCIPLINARY APPROACH TO REHAB: Arranging Home Equipment/Services Discharge Planning Family Intervention/Training Cattle Farmer/Case Management LIST OF IDENTIFIED AND POTENTIAL PROBLEMS: Alteration in leisure activities Bladder, Incontinence Blood Pressure, Hypertension/hypotension Issues Bowel, Incontinence Diabetes, Hyperglycemia/hypoglycemia Issues Fluid volume overload related to Congestive Heart Failure (CHF) Infection, Actual or Potential Mobility Impaired Pain, Alteration in Comfort Self Care Deficit Skin Integrity, Actual or Potential Urinary Tract Infection (UTI), Actual or Potential RISK FOR COMPLICATIONS - Hypertension CVA. Hypotension. DC. TIA. - Atrial Fibrillation CVA. Heart failure. Limb embolus. INTERVENTIONS - Hypertension - Atrial Fibrillation Anticoagulation. Medications. VS. PATIENT COULD BE AT RISK FOR COMPLICATIONS FROM ADVERSE MEDICAL CONDITIONS DUE TO HIS/HER COMORBIDITI ES AND THE RIGORS OF THE INTENSIVE REHABILLITATION PROGRAM. METHODS OR INTERVENTIONS TO AVOID COMPLIC ATIONS INCLUDE: - Infection Clinical staff to assess and manage the signs and symptoms of infection including fever, redness, war mth, etc. - Urinary Tract Infection - Falls Patient will be evaluated for Fall Precautions and will be placed on Fall Precautions as indicated pe r protocol. - Skin Breakdown Nursing will assess skin daily using assessment tool and will place on Skin Breakdown Precautions as indicated per protocol. - Pain Clinical staff may employ non-medication methods such as massage, distraction, decrease stimulus, etc . as needed. Clinical staff will assess patient's pain level every shift per protocol to assess and e nsure pain management effectiveness. Medications will be given and the pain level re-assessed. PRELIMINARY PLAN OF CARE: - Physical Therapy Patient needs Physical Therapy for a daily minimum of 1.5 hours at least 5 out of 7 days, to improve: Mobility, Strengthening, Transfers, Stretching, ROM, Endurance, Ability to manage stairs, Gait, and Balance. - Rehabilitation Nursing Patient requires 24x7 Rehabilitation Nursing for: Pain Issues, Identifying and preventing risk factor s, Monitoring and reporting current medical conditions, Assisting with ambulation and transfer, Yusuf ting with all ADL-s, Teaching patients about disease process and medications, Family teaching, Provid ing safe environment, Bowel and Bladder Issues, Skin Integrity, and Medication Management. Patient needs Cattle Farmer and/or Case Management for: Discharge Planning, Arranging Home Equipmen t or Services, and Family Interventions. - Dietary and Nutrition Services Patient needs Dietary and Nutrition Services for: Adequate Nutrition, Nutritional Supplements, and Nu tritional Education. - Occupational Therapy Patient needs Occupational Therapy for a daily minimum of 1.5 hours at least 5 out of 7 days, to impr ove Activities of Daily Living, including: Eating, Grooming, Bathing, Dressing, Toileting, Toilet Tra nsfers, Community Reintegration, Higher functional activities, Adaptive Equipment, Splinting, Househo ld Tasks, and Other activities as determined. POTENTIAL FUNCTIONAL GOALS FOR PATIENT TO ACHIEVE BY DISCHARGE: - Safety Precaution Patient will remain free from falls or injury at time of discharge. - Bed Mobility Patient will perform bed mobility at 4-Matty level of assistance. - Transfers Patient will complete transfers from bed to chair at 4-Matty level of assistance. - Mobility Patient will ambulate 150 ft with 4-Matty level of assistance with RW. PATIENT REHAB POTENTIAL Expected level of measurable improvement will be of a practical value to patient's functional capacit y or adaptations to impairments Has a viable Discharge Plan Medically appropriate; condition is sufficiently stable to participate in intensive rehab program Patient is able and expected to receive 3 hours of individualized therapy daily on at least 5 of ever y 7 days Patient's prognosis for significant practical improvement within a reasonable period of time appears Good DISCHARGE PLAN: - Estimated Length of Stay (days) 13. - Consensus on plan Discharge plan has been discussed with primary caregiver. Patient/Family is in agreement with the esperanza n. Primary caregiver is in agreement with the plan. - Patient/Family Goals Return home with assistance. - Planned Living Setting Upon Discharge Home, to live with Attendant. Primary caregiver: Attendant. CONCLUSION ON REHABILITATION NECESSITY: I have evaluated patient's pre-admission functional status and, comparing it to the patient's post-ad mission functional status now, I conclude that the pre-admission assessment was accurate. Patient's c ondition on admission supports the medical necessity of admission to IRF. It is safe to proceed with patient's therapy program. SIGNATURE PANEL: (CDT)
[2018-06-18] MEDS: NYSTATIN PWDR 100000 UNIT/GM TOP SCH (20:32)
[2018-06-18] MEDS: ATORVASTATIN 40 MG TAB PO SCH (20:32)
--- NOTE | 2018-06-19 01:46 | FAST ---
SHIFT START DATE/TIME: 06/18/2018 19:00 (CDT) SHIFT END DATE/TIME: 06/19/2018 07:00 (CDT) NAME SARI PERES DATE OF : 1940 DATE OF ADMISSION: 06/17/2018 20:40 (CDT) PHONE: AGE: 77 SSN# [id number] GENDER: Female ENCOUNTER PHYSICIAN: Dr. Huan Pepe M.D. ADMISSION DIAGNOSIS: - Medically Complex Conditions 17 - Other Medically Complex Conditions (17.9) Chronic Kidney Disease. EATING: Activity did not occur on this shift EATING - SCORE: 0-UNK GROOMING: Activity did not occur on this shift GROOMING - SCORE: 0-UNK BATHING: Activity did not occur on this shift BATHING - SCORE: 0-UNK DRESSING - UPPER BODY: Patient is not dressing in public clothing ARTICLES SCORE Total number of steps: 0 DRESSING - UPPER BODY - SCORE: 0-UNK DRESSING - LOWER BODY: Patient is not dressing in public clothing ARTICLES SCORE Total number of steps: 0 DRESSING - LOWER BODY - SCORE: 0-UNK TOILETING: TOILETING - STEP 1: Does the patient require the assistance of a person or device, or need extra time with toileting? Yes . TOILETING - STEP 2: Does the patient require the assistance of a helper? Yes. TOILETING - STEP 3: How much assistance does the patient require from the helper? Hands-on assistance from the helper TOILETING - STEP 4: Of the 3 tasks: 1) Adjusting clothing prior to use, 2) Cleansing of perineal area, 3) Adjusting clot julian after use; How many tasks does the patient perform WITHOUT assistance of the helper? No tasks; h elper performs all three tasks TOILETING - SCORE: 1-DEP BLADDER MANAGEMENT: [place] removes incontinent device (Depends, pull ups, etc.); cleans the patient after accident / inco ntinent episode; and, applies new incontinent device. BLADDER MANAGEMENT - SCORE: 1-DEP BOWEL MANAGEMENT: Activity did not occur on this shift BOWEL MANAGEMENT - SCORE: 7-IND TRANSFERS: BED, CHAIR, WHEELCHAIR: TRANSFERS: BED, CHAIR, WHEELCHAIR - STEP 1: Does the patient require assistance of a person or device, or need extra time with bed, chair, or whe elchair transfers? Yes. TRANSFERS: BED, CHAIR, WHEELCHAIR - STEP 2: Does the patient require the assistance of a helper? Yes. TRANSFERS: BED, CHAIR, WHEELCHAIR - STEP 3: How much assistance does the patient require from the helper? Lifting of the legs TRANSFERS: BED, CHAIR, WHEELCHAIR - STEP 4: How many legs does the patient require the helper to lift? both legs TRANSFERS: BED, CHAIR, WHEELCHAIR - SCORE: 3-MOD TRANSFERS: TOILET: TRANSFERS: TOILET - STEP 1: Does the patient require the assistance of a person or device, or need extra time with toilet transfe rs? Yes. TRANSFERS: TOILET - STEP 2: Does the patient require the assistance of a helper? Yes. TRANSFERS: TOILET - STEP 3: How much assistance does the patient require from the helper? Patient performs half or more of the tr ansferring tasks TRANSFERS: TOILET - STEP 4: Does the patient need only incidental help such as contact guard or steadying during toilet transfer? Yes. TRANSFERS: TOILET - SCORE: 4-MIN TRANSFERS: SHOWER: Activity did not occur on this shift TRANSFERS: SHOWER - SCORE: 0-UNK TRANSFERS: TUB: Activity did not occur on this shift TRANSFERS: TUB - SCORE: 0-UNK LOCOMOTION: WALK: Activity did not occur on this shift LOCOMOTION: WALK - SCORE: 0-UNK LOCOMOTION: WHEELCHAIR: Activity did not occur on this shift LOCOMOTION: WHEELCHAIR - SCORE: 0-UNK COMPREHENSION: COMPREHENSION: TYPE: Both COMPREHENSION - STEP 1: Does the patient require help from a person or device, or need extra time to understand complex and a bstract ideas (such as current events, finances, discharge planning, medical issues, relationships, e tc)? No. COMPREHENSION - STEP 2: Does the patient need extra time, require an assistive device (such as glasses for visual comprehensi on or a hearing aid for auditory comprehension) or does s/he have mild difficulty understanding compl ex and abstract information? No. COMPREHENSION - SCORE: 7-IND EXPRESSION EXPRESSION: TYPE: Both EXPRESSION - STEP 1: Does the patient require help from a person or device, or need extra time expressing complex and abst ract ideas (such as current events, finances, discharge planning, medical issues, relationships, etc) ? No. EXPRESSION - STEP 2: Does the patient need extra time, require an assistive device (such as augmentive communication syste m or a communication board), OR does s/he have mild difficulty expressing complex and abstract ideas (including mild dysarthria or mild word-find problems)? No. EXPRESSION - SCORE: 7-IND SOCIAL INTERACTION: SOCIAL INTERACTION - STEP 1: Does the patient require a helper to interact with others in social and therapeutic situations? No. SOCIAL INTERACTION - STEP 2: Does the patient need extra time in social situations, OR does s/he interact with staff, other patien ts, and family members ONLY in structured environments, OR does s/he require medication for social in teraction? No. SOCIAL INTERACTION - SCORE: 7-IND PROBLEM SOLVING: PROBLEM SOLVING - STEP 1: Does the patient need help from a person or device, or need extra time to solve complex problems such as managing a checking account or confronting interpersonal problems? No. PROBLEM SOLVING - STEP 2: Does the patient require extra time to make decisions or solve problems, OR does s/he have slight dif ficulty reading, initiating, or self-correcting in unfamiliar situations? No. PROBLEM SOLVING - SCORE: 7-IND MEMORY: MEMORY - STEP 1: Does the patient need help from a person or device, or need extra time to remember frequently encount ered people, daily routines, and executing requests? No. MEMORY - STEP 2: Does the patient have slight difficulty recognizing frequently encountered people, daily routines, or executing requests without the need for repetition or using self-initiated or environmental cues to remember? No. MEMORY - SCORE: 7-IND SIGNATURE PANEL: The following modified sections: Eating - Score, Grooming - Score, Bathing - Score, Dressing - Upper Body - Score, Dressing - Lower Body - Score, Toileting - Score, Bladder Management - Score, Bowel Man agement - Score, Transfers: Bed, Chair, Wheelchair - Score, Transfers: Toilet - Score, Transfers: Thelma wer - Score, Transfers: Tub - Score, Locomotion: Walk - Score, Locomotion: Wheelchair - Score, Compre hension - Score, Expression - Score, Social Interaction - Score, Problem Solving - Score, Memory - Sc ore were [electronically] signed by Sheryl Randolph CNA on SunJun 19 2018 01:45:54 T-0500 ([facility])
[2018-06-19 06:45] LABS: Protime INR 1.89
[2018-06-19] MEDS: PANTOPRAZOLE 40MG TABLET PO SCH (06:47)
[2018-06-19] MEDS: TRESIBA U SQ SCH (08:00)
[2018-06-19] MEDS: CITALOPRAM 10 MG TABLET PO SCH (08:20)
[2018-06-19] MEDS: METOPROLOL XL 50 MG TAB PO SCH (08:21)
[2018-06-19] MEDS: FERROUS SULFATE 325 MG TAB PO SCH ×3 (08:21→20:57)
[2018-06-19] MEDS: AMOX/K CLAV 500 MG TAB PO SCH (08:21)
[2018-06-19] MEDS: ASPIRIN 81 MG CHEWABLE TABLET PO SCH (08:21)
[2018-06-19] MEDS: ANASTROZOLE 1 MG TAB PO SCH (08:22)
[2018-06-19] MEDS: CHLORTHALIDONE 25 MG TAB PO SCH (08:22)
[2018-06-19] MEDS: INSULIN -REGULAR HUMAN 50 UNIT/0.5 ML ML SQ SCH ×4 (08:22→21:34)
[2018-06-19] MEDS: NYSTATIN PWDR 100000 UNIT/GM TOP SCH ×2 (08:23→20:57)
[2018-06-19] MEDS: RAMIPRIL 2.5 MG CAP PO SCH (12:11)
[2018-06-19] MEDS ORDERED: D50W 25 GM/50 ML SYRINGE IV PRN (12:29)
[2018-06-19] MEDS ORDERED: GLUCAGON 1 MG/VIAL IM PRN (12:29)
--- NOTE | 2018-06-19 13:53 | R.PN ---
ENCOUNTER DATE AND TIME: 06/19/2018 13:38 (CDT) NAME SARI PERES DATE OF : 1940 DATE OF ADMISSION: 06/17/2018 20:40 (CDT) Chronic Kidney DiseaseSUBJECTIVE: Pt denied any depression. Pt denied any Shortness of Breath. Ambulated 155' with contact guard assistance using a rolling walker. Hgb 10.0, WBC 7.0, Glucose 242 t o 416. She will be restarted on insulin glargine 32 units at bedtime and inslulin sliding scale. VITAL SIGNS Temperature: 97.4 F SBP/DBP: 127/72 Pulse: 60 Resp: 16 MEDICATION ALLERGIES: quinolones ENVIRONMENTAL ALLERGIES: - Substance Allergies None Known - Other Allergies None Known NURSING: - Shower allowing shower - Lab Results blood Sugar Check ACHS PRECAUTIONS: - Weight Bearing Precaution NWB right LE ACTIVITIES OOB only with supervision THERAPIES: - Occupational Therapy Evaluate and Treat. - Physical Therapy Evaluate and Treat. PHYSICAL EXAM - Gen Alert and awake Lying in bed No apparent distress Oriented to: person, time, and place - Skin No breakdown No abnormalities - Eyes No abnormalities - ENMT No abnormalities - Neck No abnormalities - CVS RRR - Chest No abnormalities - Abd Soft - GI nondistended Deferred - No abnormalities - Ext No significant edema. Right lower extremity in knee immobilizer due to moderate right medial meniscus tear. - MSK 4+/5 weakness in right lower extremity - Neuro 4/5 strength right lower extremity. - Psych No abnormalities ASSESSMENT: Pt. is a 77 yo Right-handed female.On 06/16/2018 she was admitted to [facility] with diagnosis Chronic Kidney Disease.Her impairment category is Medically Complex Conditio ns 17 - Other Medically Complex Conditions (17.9).Pre-morbidly, Pt. was independent/mod-I in Self-Ca re, Sphincter Control, Transfers Control, Locomotion, and Communication; and she had good Sphincter C ontrol.Currently, she has deficits of Transfers Control, Locomotion, Communication, Social Cognition, Endurance, Balance, Safety Awareness, and Self-Care.Pt. is now referred to [facility] for acute in-patient rehabilitation in order to maximize patient's functional independence i n activities of daily living, strength, ROM, and mobility.- Rehab Goal Patient has realistic goal of being discharged at assistance level 6-Melvin to reside at Home with Att endant. MDM/PLAN: - Physical Therapy Gait dysfunction - to improve, our physical therapists will perform initial evaluation of pt's statu s upon admission and devise an individualized program for Gait Training, and Wheel Chair mobility Inability to transfer - to improve, our physical therapists will perform initial evaluation of pt's status upon admission and devise an individualized program for Bed mobility Need for home safety evaluation - to improve, our physical therapists will perform initial evaluatio n of pt's status upon admission and devise an individualized program for Home Evaluation Need in caregiver upon discharge - to improve, our physical therapists will perform initial evaluati on of pt's status upon admission and devise an individualized program for Caregiver Training Edema - to improve, our physical therapists will perform initial evaluation of pt's status upon admis [place] and devise an individualized program for Elevation Training, and Lymphedema Therapy New precaution - to improve, our physical therapists will perform initial evaluation of pt's status upon admission and devise an individualized program for Patient precaution education Poor balance - to improve, our physical therapists will perform initial evaluation of pt's status up on admission and devise an individualized program for Balance Training Poor endurance - to improve, our physical therapists will perform initial evaluation of pt's status upon admission and devise an individualized program for Endurance Training Weakness - to improve, our physical therapists will perform initial evaluation of pt's status upon a dmission and devise an individualized program for Aquatic Therapy, Neuromuscular Reeducation, and Str engthening Achieving independence - to improve, our physical therapists will perform initial evaluation of pt's status upon admission and devise an individualized program for Community Reintegration Activities - Occupational Therapy ADL deficits - to improve, our occupation therapists will perform initial evaluation of pt's status upon admission and devise an individualized program for Bathing, Bed mobility, Community Reintegratio n, Cooking, Dressing, Eating, Fine Motor Skills, Grooming, Homemaking, Kitchen Mobility, Laundry, Pat ient Education, Safety Awareness, Splinting - Positioning, Transfers(Toilet, Tub, Shower), and Wheel Chair Management Cognitive deficits - to improve, our occupation therapists will perform initial evaluation of pt's s tatus upon admission and devise an individualized program for Cognition - orientation Need for career specialist - to improve, our occupation therapists will perform initial evaluation of pt's status upon admission and devise an individualized program for Caregiver Training Weakness - to improve, our occupation therapists will perform initial evaluation of pt's status upon admission and devise an individualized program for Aquatic Therapy, Balance, Endurance, UE ROM, and UE strengthening - Diet Type Continue Regular - Diet - Liquid Texture Continue Regular - Tube Feed Continue N/A - Lab Results blood Sugar Check ACHS - Weight Bearing Precaution NWB right LE - Diet - Solid Texture Continue Regular - Shower allowing shower FUNCTIONAL STATUS: UPDATED AT WEEKLY TEAM CONFERENCE - Bladder Same accident frequency: 7-Ind - No accidents in the past 7 days - Bowel Same accident frequency: 7-Ind - No accidents in the past 7 days - Walking Same score based on distance walked: 1(<=50ft) - Wheelchair Same score based on distance traveled: 1(<=50ft) FUNCTIONAL STATUS: - Self-Care A. Eating Ind B. Grooming Ind C. Bathing Ind D. Dressing - Upper Ind E. Dressing - Lower maxA F. Toileting Dep - Sphincter Control G: Bladder control Ind H: Bowel control Ind - Transfers Control I. Bed/Chair/Wheelchair maxA J. Toilet maxA K. Tub/Shower maxA - Locomotion L. Walk/Wheelchair (B) Dep M. Stairs ADNO - Communication N. Comprehension (B) Matty O. Expression (B) Matty - Social Cognition P. Social Interaction Matty Q. Problem Solving modA R. Memory Matty - Endurance Poor - Balance Poor - Safety Awareness Poor CURRENT FUNC. DEFICITS: Transfers Control, Locomotion, Communication, Social Cognition, Endurance, Balance, Safety Awareness, and Self-Care SIGNATURE PANEL: (CDT)
--- NOTE | 2018-06-19 14:31 | FAST ---
SHIFT START DATE/TIME: 06/19/2018 07:00 (CDT) SHIFT END DATE/TIME: 06/19/2018 19:00 (CDT) NAME SARI PERES DATE OF : 1940 DATE OF ADMISSION: 06/17/2018 20:40 (CDT) PHONE: AGE: 77 SSN# [id number] GENDER: Female ENCOUNTER PHYSICIAN: Dr. Huan Pepe M.D. ADMISSION DIAGNOSIS: - Medically Complex Conditions 17 - Other Medically Complex Conditions (17.9) Chronic Kidney Disease. EATING: EATING - STEP 1: Does the patient require the assistance of a person or device, or need extra time when eating? Yes. EATING - STEP 2: Does the patient require the assistance of a helper? Yes. EATING - STEP 3: Does the patient perform half or more of the eating tasks? Yes. EATING - STEP 4: Does the patient need only supervision, cuing, coaxing OR help to apply an orthosis OR help to cut fo od, open containers, pour liquids, or butter bread? Yes. EATING - SCORE: 5-SUP GROOMING: Comb/brush hair Oral care Wash, rinse, and dry face Wash, rinse, and dry hands GROOMING - STEP 1: Does the patient require the assistance of a person or device, or need extra time when grooming? Yes. GROOMING - STEP 2: Does the patient require the assistance of a helper? Yes. GROOMING - STEP 3: How much assistance does the patient require from the helper? Only prior equipment preparation/set up from the helper GROOMING - SCORE: 5-SUP BATHING: Activity did not occur on this shift BATHING - SCORE: 0-UNK DRESSING - UPPER BODY: T-shirt/pullover shirt (four steps) ARTICLES SCORE Total number of steps: 4 DRESSING - UPPER BODY - STEP 1: Does the patient require help from a person or device, or need extra time when dressing above the [address]? Yes. DRESSING - UPPER BODY - STEP 2: Does the patient require the assistance of a helper? Yes. DRESSING - UPPER BODY - STEP 3: Does the helper touch the patient while dressing? No. DRESSING - UPPER BODY - SCORE: 5-SUP DRESSING - LOWER BODY: Elastic waist pants (three steps) Underwear (three steps) ARTICLES SCORE Total number of steps: 6 DRESSING - LOWER BODY - STEP 1: Does the patient require help from a person or device, or need extra time when dressing below the [address]? Yes. DRESSING - LOWER BODY - STEP 2: Does the patient require the assistance of a helper? Yes. DRESSING - LOWER BODY - STEP 3: Does the helper touch the patient while dressing? Yes. DRESSING - LOWER BODY - STEP 4: How many of the total steps does the patient complete on his/her own? 0 DRESSING - LOWER BODY - STEP 5: Does patient require total assistance for dressing below the waist such as the helper holding clothin g and performing basically all the activities? Yes. DRESSING - LOWER BODY - SCORE: 1-DEP TOILETING: TOILETING - STEP 1: Does the patient require the assistance of a person or device, or need extra time with toileting? Yes . TOILETING - STEP 2: Does the patient require the assistance of a helper? Yes. TOILETING - STEP 3: How much assistance does the patient require from the helper? Hands-on assistance from the helper TOILETING - STEP 4: Of the 3 tasks: 1) Adjusting clothing prior to use, 2) Cleansing of perineal area, 3) Adjusting clot julian after use; How many tasks does the patient perform WITHOUT assistance of the helper? Two tasks TOILETING - SCORE: 3-MOD BLADDER MANAGEMENT: [place] removes incontinent device (Depends, pull ups, etc.); cleans the patient after accident / inco ntinent episode; and, applies new incontinent device. BLADDER MANAGEMENT - SCORE: 1-DEP BLADDER MANAGEMENT - FREQUENCY OF ACCIDENTS: BLADDER MANAGEMENT(FA) - STEP 1: How many accidents has the patient had during the current shift? 2 BOWEL MANAGEMENT: Activity did not occur on this shift BOWEL MANAGEMENT - SCORE: 7-IND BOWEL MANAGEMENT - FREQUENCY OF ACCIDENTS: BOWEL MANAGEMENT(FA) - STEP 1: How many accidents has the patient had during the current shift? 0 TRANSFERS: BED, CHAIR, WHEELCHAIR: TRANSFERS: BED, CHAIR, WHEELCHAIR - STEP 1: Does the patient require assistance of a person or device, or need extra time with bed, chair, or whe elchair transfers? Yes. TRANSFERS: BED, CHAIR, WHEELCHAIR - STEP 2: Does the patient require the assistance of a helper? Yes. TRANSFERS: BED, CHAIR, WHEELCHAIR - STEP 3: How much assistance does the patient require from the helper? Lifting of the legs TRANSFERS: BED, CHAIR, WHEELCHAIR - STEP 4: How many legs does the patient require the helper to lift? one leg TRANSFERS: BED, CHAIR, WHEELCHAIR - SCORE: 4-MIN TRANSFERS: TOILET: TRANSFERS: TOILET - STEP 1: Does the patient require the assistance of a person or device, or need extra time with toilet transfe rs? Yes. TRANSFERS: TOILET - STEP 2: Does the patient require the assistance of a helper? Yes. TRANSFERS: TOILET - STEP 3: How much assistance does the patient require from the helper? Patient performs half or more of the tr ansferring tasks TRANSFERS: TOILET - STEP 4: Does the patient need only incidental help such as contact guard or steadying during toilet transfer? Yes. TRANSFERS: TOILET - SCORE: 4-MIN TRANSFERS: SHOWER: Activity did not occur on this shift TRANSFERS: SHOWER - SCORE: 0-UNK TRANSFERS: TUB: Activity did not occur on this shift TRANSFERS: TUB - SCORE: 0-UNK LOCOMOTION: WALK: Activity did not occur on this shift LOCOMOTION: WALK - SCORE: 0-UNK LOCOMOTION: WHEELCHAIR: Activity did not occur on this shift LOCOMOTION: WHEELCHAIR - SCORE: 0-UNK COMPREHENSION: COMPREHENSION: TYPE: Both COMPREHENSION - STEP 1: Does the patient require help from a person or device, or need extra time to understand complex and a bstract ideas (such as current events, finances, discharge planning, medical issues, relationships, e tc)? No. COMPREHENSION - STEP 2: Does the patient need extra time, require an assistive device (such as glasses for visual comprehensi on or a hearing aid for auditory comprehension) or does s/he have mild difficulty understanding compl ex and abstract information? Yes. COMPREHENSION - SCORE: 6-RONEN EXPRESSION EXPRESSION: TYPE: Both EXPRESSION - STEP 1: Does the patient require help from a person or device, or need extra time expressing complex and abst ract ideas (such as current events, finances, discharge planning, medical issues, relationships, etc) ? No. EXPRESSION - STEP 2: Does the patient need extra time, require an assistive device (such as augmentive communication syste m or a communication board), OR does s/he have mild difficulty expressing complex and abstract ideas (including mild dysarthria or mild word-find problems)? Yes. EXPRESSION - SCORE: 6-RONEN SOCIAL INTERACTION: SOCIAL INTERACTION - STEP 1: Does the patient require a helper to interact with others in social and therapeutic situations? No. SOCIAL INTERACTION - STEP 2: Does the patient need extra time in social situations, OR does s/he interact with staff, other patien ts, and family members ONLY in structured environments, OR does s/he require medication for social in teraction? Yes, patient needs extra time SOCIAL INTERACTION - SCORE: 6-RONEN PROBLEM SOLVING: PROBLEM SOLVING - STEP 1: Does the patient need help from a person or device, or need extra time to solve complex problems such as managing a checking account or confronting interpersonal problems? No. PROBLEM SOLVING - STEP 2: Does the patient require extra time to make decisions or solve problems, OR does s/he have slight dif ficulty reading, initiating, or self-correcting in unfamiliar situations? Yes, patient needs extra ti me. PROBLEM SOLVING - SCORE: 6-RONEN MEMORY: MEMORY - STEP 1: Does the patient need help from a person or device, or need extra time to remember frequently encount ered people, daily routines, and executing requests? No. MEMORY - STEP 2: Does the patient have slight difficulty recognizing frequently encountered people, daily routines, or executing requests without the need for repetition or using self-initiated or environmental cues to remember? Yes. MEMORY - SCORE: 6-RONEN SIGNATURE PANEL: The following modified sections: Eating - Score, Grooming - Score, Bathing - Score, Dressing - Upper Body - Score, Dressing - Lower Body - Score, Toileting - Score, Bladder Management - Score, Bowel Man agement - Score, Transfers: Bed, Chair, Wheelchair - Score, Transfers: Toilet - Score, Transfers: Thelma wer - Score, Transfers: Tub - Score, Locomotion: Walk - Score, Locomotion: Wheelchair - Score, Compre hension - Score, Expression - Score, Social Interaction - Score, Problem Solving - Score, Memory - Sc ore were [electronically] signed by Nataly Watt C.N.A. on SunJun 19 2018 14:30:34 T-0500 (Centra l Daylight Time)
[2018-06-19] MEDS: WARFARIN SODIUM 2 MG TAB PO SCH (17:05)
[2018-06-19] MEDS: CEPHALEXIN 250 MG CAP PO SCH (20:57)
[2018-06-19] MEDS: ATORVASTATIN 40 MG TAB PO SCH (20:58)
[2018-06-19] MEDS ORDERED: INSULIN GLARGINE 100 UNITS/ML SQ SCH (21:00)
[2018-06-19] MEDS: DOCUSATE NA/SENNA CONC 1 TAB PO PRN (21:00)
--- NOTE | 2018-06-20 01:36 | CON ---
Date of Consultation: 06/19/2018 Additional Attending Physician: Dr. Pepe Reason For Consultation: Right knee pain with history of medial meniscus tear. History Of Present Illness: Ms. Smith is a 77-year-old female, who was admitted to the inpatient rehab center on 06/17/2018. She had a recent fall and was admitted to the hospital on June 16. She had an MRI of her right knee at that time, which demonstrated a tear of her medial meniscus. [facility] as well as right knee pain. Physical Therapy that time recommended continued rehabilitation. The patient has past medical history including diastolic CHF, chronic Afib, coronary artery disease, and chronic renal disease. During today's evaluation, the patient denies any leg pain and has been working with physical therapy. Review of Systems: As above, otherwise negative. Past Medical History: Includes atrial fibrillation, coronary artery disease, chronic diastolic CHF, type 2 diabetes, hypertension, hyperlipidemia, depression , anxiety. Past Surgical History: Includes hysterectomy, tubal ligation, appendectomy, right breast lumpectomy with lymph node removal. Social History: Denies tobacco, alcohol, or drug use. Family History: Reviewed and noncontributory. Physical Examination: General: No apparent distress. HEENT: Normocephalic, atraumatic. Neck: Supple. Cardiovascular: Brisk cap refill to all digits. Chest: Nonlabored breathing. Abdomen: Nondistended. Psychiatric: Response to exam. Extremities: Right lower extremity, no swelling noted about the knee. No effusion. Range of motion from 0-110 degrees without pain. No instability with Yvette's, posterior drawer, varus-valgus stresses. No tenderness to palpation over the medial or lateral joint line. No ecchymosis noted. 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 Assessment And Plan: Sarah is a 77-year-old female with right knee arthritis, medial meniscal tear, and right knee contusion. The patient is currently having no pain with the right knee at this time. She will continue to work with physical therapy. She will be weightbearing as tolerated and progress with activities as tolerated. She will follow up in my clinic as needed. As she is not having any active symptoms at this time, we will continue with conservative treatment measures. RIANA/SERGO Voice ID: [id number] Report ID: [id number] MTDD
--- NOTE | 2018-06-20 02:31 | FAST ---
SHIFT START DATE/TIME: 06/19/2018 19:00 (CDT) SHIFT END DATE/TIME: 06/20/2018 07:00 (CDT) NAME SARI PERES DATE OF : 1940 DATE OF ADMISSION: 06/17/2018 20:40 (CDT) PHONE: AGE: 77 SSN# [id number] GENDER: Female ENCOUNTER PHYSICIAN: Dr. Huan Pepe M.D. ADMISSION DIAGNOSIS: - Medically Complex Conditions 17 - Other Medically Complex Conditions (17.9) Chronic Kidney Disease. EATING: Activity did not occur on this shift EATING - SCORE: 0-UNK GROOMING: Activity did not occur on this shift GROOMING - SCORE: 0-UNK BATHING: Activity did not occur on this shift BATHING - SCORE: 0-UNK DRESSING - UPPER BODY: Patient is not dressing in public clothing ARTICLES SCORE Total number of steps: 0 DRESSING - UPPER BODY - SCORE: 0-UNK DRESSING - LOWER BODY: Patient is not dressing in public clothing ARTICLES SCORE Total number of steps: 0 DRESSING - LOWER BODY - SCORE: 0-UNK TOILETING: TOILETING - STEP 1: Does the patient require the assistance of a person or device, or need extra time with toileting? Yes . TOILETING - STEP 2: Does the patient require the assistance of a helper? Yes. TOILETING - STEP 3: How much assistance does the patient require from the helper? Hands-on assistance from the helper TOILETING - STEP 4: Of the 3 tasks: 1) Adjusting clothing prior to use, 2) Cleansing of perineal area, 3) Adjusting clot julian after use; How many tasks does the patient perform WITHOUT assistance of the helper? Two tasks TOILETING - SCORE: 3-MOD BLADDER MANAGEMENT: BLADDER MANAGEMENT - STEP 1: Does the patient control the bladder completely and intentionally without equipment or devices or med ications, and is always continent? No. BLADDER MANAGEMENT - STEP 2: Does the patient require the assistance of a helper? Yes. BLADDER MANAGEMENT - STEP 3: How much assistance does the patient require from the helper? Only set-up of equipment - such as plac ing it within reach of the patient or emptying a device - to maintain either satisfactory voiding pat tern or managing an external device, such as an absorbent pad, ileal device, or catheter BLADDER MANAGEMENT - SCORE: 5-SUP BOWEL MANAGEMENT: Activity did not occur on this shift BOWEL MANAGEMENT - SCORE: 7-IND TRANSFERS: BED, CHAIR, WHEELCHAIR: TRANSFERS: BED, CHAIR, WHEELCHAIR - STEP 1: Does the patient require assistance of a person or device, or need extra time with bed, chair, or whe elchair transfers? Yes. TRANSFERS: BED, CHAIR, WHEELCHAIR - STEP 2: Does the patient require the assistance of a helper? Yes. TRANSFERS: BED, CHAIR, WHEELCHAIR - STEP 3: How much assistance does the patient require from the helper? Lifting of the legs TRANSFERS: BED, CHAIR, WHEELCHAIR - STEP 4: How many legs does the patient require the helper to lift? one leg TRANSFERS: BED, CHAIR, WHEELCHAIR - SCORE: 4-MIN TRANSFERS: TOILET: TRANSFERS: TOILET - STEP 1: Does the patient require the assistance of a person or device, or need extra time with toilet transfe rs? Yes. TRANSFERS: TOILET - STEP 2: Does the patient require the assistance of a helper? Yes. TRANSFERS: TOILET - STEP 3: How much assistance does the patient require from the helper? Patient performs half or more of the tr ansferring tasks TRANSFERS: TOILET - STEP 4: Does the patient need only incidental help such as contact guard or steadying during toilet transfer? No. Patient needs more than incidental help TRANSFERS: TOILET - SCORE: 3-MOD TRANSFERS: SHOWER: Activity did not occur on this shift TRANSFERS: SHOWER - SCORE: 0-UNK TRANSFERS: TUB: Activity did not occur on this shift TRANSFERS: TUB - SCORE: 0-UNK LOCOMOTION: WALK: Activity did not occur on this shift LOCOMOTION: WALK - SCORE: 0-UNK LOCOMOTION: WHEELCHAIR: Activity did not occur on this shift LOCOMOTION: WHEELCHAIR - SCORE: 0-UNK COMPREHENSION: COMPREHENSION: TYPE: Both COMPREHENSION - STEP 1: Does the patient require help from a person or device, or need extra time to understand complex and a bstract ideas (such as current events, finances, discharge planning, medical issues, relationships, e tc)? Yes. COMPREHENSION - STEP 2: Does the patient require help to understand questions or statements about basic needs or ideas (such as hunger, thirst, sleep, safety, daily schedule, room location, or discomfort) half or more of the t lizeth? No. COMPREHENSION - STEP 3: How often does the patient need help to understand directions and conversation about basic needs? Les s than 10% of the time COMPREHENSION - SCORE: 5-SUP EXPRESSION EXPRESSION: TYPE: Both EXPRESSION - STEP 1: Does the patient require help from a person or device, or need extra time expressing complex and abst ract ideas (such as current events, finances, discharge planning, medical issues, relationships, etc) ? Yes. EXPRESSION - STEP 2: Does the patient require help to express basic necessities or ideas (such as hunger, thirst, sleep, s afety, daily schedule, room location, or discomfort) half or more of the time? No. EXPRESSION - STEP 3: How often does the patient need help to express directions and conversation about basic needs? Less t anne 10% of the time EXPRESSION - SCORE: 5-SUP SOCIAL INTERACTION: SOCIAL INTERACTION - STEP 1: Does the patient require a helper to interact with others in social and therapeutic situations? No. SOCIAL INTERACTION - STEP 2: Does the patient need extra time in social situations, OR does s/he interact with staff, other patien ts, and family members ONLY in structured environments, OR does s/he require medication for social in teraction? Yes, patient requires medication for social interaction SOCIAL INTERACTION - SCORE: 6-RONEN PROBLEM SOLVING: PROBLEM SOLVING - STEP 1: Does the patient need help from a person or device, or need extra time to solve complex problems such as managing a checking account or confronting interpersonal problems? Yes. PROBLEM SOLVING - STEP 2: Does the patient solve basic routine problems half or more of the time? Yes. PROBLEM SOLVING - STEP 3: How often does the patient need help to solve basic routine problems? Less than 10% of the time PROBLEM SOLVING - SCORE: 5-SUP MEMORY: MEMORY - STEP 1: Does the patient need help from a person or device, or need extra time to remember frequently encount ered people, daily routines, and executing requests? Yes. MEMORY - STEP 2: How often does the patient need help to remember frequently encountered people, daily routines, and e xecuting requests? Less than 10% of the time MEMORY - SCORE: 5-SUP
[2018-06-20 06:37] LABS: Absolute Lymphocytes (CBC) 2.3 K/uL (0.7-4.9); Absolute Monocytes 0.4 K/uL (0.1-1.3); Absolute Neutrophil 3.9 K/uL (1.8-8.0); Basophils % 0.7 % (0-1.3); Hematocrit 32.2 % (36.0-45.0); Lymphocytes % 32.2 % (15.3-44.8); MPV 9.9 fL (7.6-11.3); Monocytes % 5.4 % (3.3-12.3); RBC Red Blood Cell Count 3.45 M/uL (3.86-4.86)
[2018-06-20] MEDS: PANTOPRAZOLE 40MG TABLET PO SCH (06:51)
[2018-06-20 06:55] LABS: Protime INR 2.64
[2018-06-20 07:13] LABS: Albumin 2.7 g/dL (3.4-5.0); Potassium 5.1 mmol/L (3.5-5.1); Prealbumin 10.8 mg/dL (20-40)
[2018-06-20] MEDS: NYSTATIN PWDR 100000 UNIT/GM TOP SCH ×2 (08:00→19:52)
[2018-06-20] MEDS: FERROUS SULFATE 325 MG TAB PO SCH ×3 (08:33→21:17)
[2018-06-20] MEDS: METOPROLOL XL 50 MG TAB PO SCH (08:33)
[2018-06-20] MEDS: CITALOPRAM 10 MG TABLET PO SCH (08:33)
[2018-06-20] MEDS: ASPIRIN 81 MG CHEWABLE TABLET PO SCH (08:34)
[2018-06-20] MEDS: INSULIN -REGULAR HUMAN 50 UNIT/0.5 ML ML SQ SCH ×4 (08:36→21:55)
[2018-06-20] MEDS: RAMIPRIL 2.5 MG CAP PO SCH (09:01)
[2018-06-20] MEDS: CEPHALEXIN 250 MG CAP PO SCH ×2 (09:01→19:52)
[2018-06-20] MEDS: CHLORTHALIDONE 25 MG TAB PO SCH (09:02)
[2018-06-20] MEDS: ANASTROZOLE 1 MG TAB PO SCH (09:02)
[2018-06-20 10:56] LABS: Hematocrit 35.7 % (36.0-45.0)
--- NOTE | 2018-06-20 14:46 | FAST ---
SHIFT START DATE/TIME: 06/20/2018 07:00 (CDT) SHIFT END DATE/TIME: 06/20/2018 19:00 (CDT) NAME SARI PERES DATE OF : 1940 DATE OF ADMISSION: 06/17/2018 20:40 (CDT) PHONE: AGE: 77 SSN# [id number] GENDER: Female ENCOUNTER PHYSICIAN: Dr. Huan Pepe M.D. ADMISSION DIAGNOSIS: - Medically Complex Conditions 17 - Other Medically Complex Conditions (17.9) Chronic Kidney Disease. EATING: EATING - STEP 1: Does the patient require the assistance of a person or device, or need extra time when eating? Yes. EATING - STEP 2: Does the patient require the assistance of a helper? Yes. EATING - STEP 3: Does the patient perform half or more of the eating tasks? Yes. EATING - STEP 4: Does the patient need only supervision, cuing, coaxing OR help to apply an orthosis OR help to cut fo od, open containers, pour liquids, or butter bread? Yes. EATING - SCORE: 5-SUP GROOMING: Comb/brush hair Wash, rinse, and dry face Wash, rinse, and dry hands GROOMING - STEP 1: Does the patient require the assistance of a person or device, or need extra time when grooming? Yes. GROOMING - STEP 2: Does the patient require the assistance of a helper? Yes. GROOMING - STEP 3: How much assistance does the patient require from the helper? Only prior equipment preparation/set up from the helper GROOMING - SCORE: 5-SUP BATHING: Activity did not occur on this shift BATHING - SCORE: 0-UNK DRESSING - UPPER BODY: T-shirt/pullover shirt (four steps) ARTICLES SCORE Total number of steps: 4 DRESSING - UPPER BODY - STEP 1: Does the patient require help from a person or device, or need extra time when dressing above the [address]? Yes. DRESSING - UPPER BODY - STEP 2: Does the patient require the assistance of a helper? Yes. DRESSING - UPPER BODY - STEP 3: Does the helper touch the patient while dressing? No. DRESSING - UPPER BODY - SCORE: 5-SUP DRESSING - LOWER BODY: Elastic waist pants (three steps) Underwear (three steps) ARTICLES SCORE Total number of steps: 6 DRESSING - LOWER BODY - STEP 1: Does the patient require help from a person or device, or need extra time when dressing below the [address]? Yes. DRESSING - LOWER BODY - STEP 2: Does the patient require the assistance of a helper? Yes. DRESSING - LOWER BODY - STEP 3: Does the helper touch the patient while dressing? Yes. DRESSING - LOWER BODY - STEP 4: How many of the total steps does the patient complete on his/her own? 0 DRESSING - LOWER BODY - STEP 5: Does patient require total assistance for dressing below the waist such as the helper holding clothin g and performing basically all the activities? Yes. DRESSING - LOWER BODY - SCORE: 1-DEP TOILETING: TOILETING - STEP 1: Does the patient require the assistance of a person or device, or need extra time with toileting? Yes . TOILETING - STEP 2: Does the patient require the assistance of a helper? Yes. TOILETING - STEP 3: How much assistance does the patient require from the helper? Hands-on assistance from the helper TOILETING - STEP 4: Of the 3 tasks: 1) Adjusting clothing prior to use, 2) Cleansing of perineal area, 3) Adjusting clot julian after use; How many tasks does the patient perform WITHOUT assistance of the helper? No tasks; h elper performs all three tasks TOILETING - SCORE: 1-DEP BLADDER MANAGEMENT: [place] removes incontinent device (Depends, pull ups, etc.); cleans the patient after accident / inco ntinent episode; and, applies new incontinent device. BLADDER MANAGEMENT - SCORE: 1-DEP BLADDER MANAGEMENT - FREQUENCY OF ACCIDENTS: BLADDER MANAGEMENT(FA) - STEP 1: How many accidents has the patient had during the current shift? 2 BOWEL MANAGEMENT: [place] removes incontinent device (depends, pull ups, etc.); cleans the patient after accident / inco ntinent episode; and, applies new device (depends, pull-ups, padding, etc.). BOWEL MANAGEMENT - SCORE: 1-DEP BOWEL MANAGEMENT - FREQUENCY OF ACCIDENTS: BOWEL MANAGEMENT(FA) - STEP 1: How many accidents has the patient had during the current shift? 1 TRANSFERS: BED, CHAIR, WHEELCHAIR: TRANSFERS: BED, CHAIR, WHEELCHAIR - STEP 1: Does the patient require assistance of a person or device, or need extra time with bed, chair, or whe elchair transfers? Yes. TRANSFERS: BED, CHAIR, WHEELCHAIR - STEP 2: Does the patient require the assistance of a helper? Yes. TRANSFERS: BED, CHAIR, WHEELCHAIR - STEP 3: How much assistance does the patient require from the helper? Only supervision TRANSFERS: BED, CHAIR, WHEELCHAIR - SCORE: 5-SUP TRANSFERS: TOILET: TRANSFERS: TOILET - STEP 1: Does the patient require the assistance of a person or device, or need extra time with toilet transfe rs? Yes. TRANSFERS: TOILET - STEP 2: Does the patient require the assistance of a helper? Yes. TRANSFERS: TOILET - STEP 3: How much assistance does the patient require from the helper? Patient performs half or more of the tr ansferring tasks TRANSFERS: TOILET - STEP 4: Does the patient need only incidental help such as contact guard or steadying during toilet transfer? Yes. TRANSFERS: TOILET - SCORE: 4-MIN TRANSFERS: SHOWER: Activity did not occur on this shift TRANSFERS: SHOWER - SCORE: 0-UNK TRANSFERS: TUB: Activity did not occur on this shift TRANSFERS: TUB - SCORE: 0-UNK LOCOMOTION: WALK: Activity did not occur on this shift LOCOMOTION: WALK - SCORE: 0-UNK LOCOMOTION: WHEELCHAIR: Activity did not occur on this shift LOCOMOTION: WHEELCHAIR - SCORE: 0-UNK COMPREHENSION: COMPREHENSION: TYPE: Both COMPREHENSION - STEP 1: Does the patient require help from a person or device, or need extra time to understand complex and a bstract ideas (such as current events, finances, discharge planning, medical issues, relationships, e tc)? No. COMPREHENSION - STEP 2: Does the patient need extra time, require an assistive device (such as glasses for visual comprehensi on or a hearing aid for auditory comprehension) or does s/he have mild difficulty understanding compl ex and abstract information? Yes. COMPREHENSION - SCORE: 6-RONEN EXPRESSION EXPRESSION: TYPE: Both EXPRESSION - STEP 1: Does the patient require help from a person or device, or need extra time expressing complex and abst ract ideas (such as current events, finances, discharge planning, medical issues, relationships, etc) ? No. EXPRESSION - STEP 2: Does the patient need extra time, require an assistive device (such as augmentive communication syste m or a communication board), OR does s/he have mild difficulty expressing complex and abstract ideas (including mild dysarthria or mild word-find problems)? Yes. EXPRESSION - SCORE: 6-RONEN SOCIAL INTERACTION: SOCIAL INTERACTION - STEP 1: Does the patient require a helper to interact with others in social and therapeutic situations? No. SOCIAL INTERACTION - STEP 2: Does the patient need extra time in social situations, OR does s/he interact with staff, other patien ts, and family members ONLY in structured environments, OR does s/he require medication for social in teraction? Yes, patient needs extra time SOCIAL INTERACTION - SCORE: 6-RONEN PROBLEM SOLVING: PROBLEM SOLVING - STEP 1: Does the patient need help from a person or device, or need extra time to solve complex problems such as managing a checking account or confronting interpersonal problems? No. PROBLEM SOLVING - STEP 2: Does the patient require extra time to make decisions or solve problems, OR does s/he have slight dif ficulty reading, initiating, or self-correcting in unfamiliar situations? Yes, patient needs extra ti me. PROBLEM SOLVING - SCORE: 6-RONEN MEMORY: MEMORY - STEP 1: Does the patient need help from a person or device, or need extra time to remember frequently encount ered people, daily routines, and executing requests? No. MEMORY - STEP 2: Does the patient have slight difficulty recognizing frequently encountered people, daily routines, or executing requests without the need for repetition or using self-initiated or environmental cues to remember? Yes. MEMORY - SCORE: 6-RONEN SIGNATURE PANEL: The following modified sections: Eating - Score, Grooming - Score, Bathing - Score, Dressing - Upper Body - Score, Dressing - Lower Body - Score, Toileting - Score, Bladder Management - Score, Bowel Man agement - Score, Transfers: Bed, Chair, Wheelchair - Score, Transfers: Toilet - Score, Transfers: Thelma wer - Score, Transfers: Tub - Score, Locomotion: Walk - Score, Locomotion: Wheelchair - Score, Compre hension - Score, Expression - Score, Social Interaction - Score, Problem Solving - Score, Memory - Sc ore were [electronically] signed by Aneta CaseyNSteve on SunJun 20 2018 14:11:31 T-0500 ([facility])
--- NOTE | 2018-06-20 14:47 | FAST ---
ENCOUNTER DATE AND TIME: 06/20/2018 08:00 (CDT) NAME SARI PERES DATE OF : 1940 DATE OF ADMISSION: 06/17/2018 20:40 (CDT) PHONE: AGE: 77 SSN# [id number] GENDER: Female ENCOUNTER PHYSICIAN: Dr. Huan Pepe M.D. ADMISSION DIAGNOSIS: - Medically Complex Conditions 17 - Other Medically Complex Conditions (17.9) Chronic Kidney Disease. EATING: Activity did not occur on this shift EATING - SCORE: 0-UNK GROOMING: Comb/brush hair Wash, rinse, and dry face Wash, rinse, and dry hands GROOMING - STEP 1: Does the patient require the assistance of a person or device, or need extra time when grooming? Yes. GROOMING - STEP 2: Does the patient require the assistance of a helper? Yes. GROOMING - STEP 3: How much assistance does the patient require from the helper? Only prior equipment preparation/set up from the helper GROOMING - SCORE: 5-SUP BATHING: Abdomen Buttocks Chest Left arm Left lower leg and foot Left upper leg Perineal area Right arm Right lower leg and foot BATHING - STEP 1: Does the patient require the assistance of a person or device, or need extra time when bathing? Yes. BATHING - STEP 2: Does the patient require the assistance of a helper? Yes. BATHING - STEP 3: How much assistance does the patient require from the helper? More than just incidental help BATHING - STEP 4: What percent of the body parts did the patient bathe WITHOUT the helper? Less than half of the body p arts BATHING - SCORE: 2-MAX DRESSING - UPPER BODY: T-shirt/pullover shirt (four steps) ARTICLES SCORE Total number of steps: 4 DRESSING - UPPER BODY - STEP 1: Does the patient require help from a person or device, or need extra time when dressing above the [address] st? Yes. DRESSING - UPPER BODY - STEP 2: Does the patient require the assistance of a helper? Yes. DRESSING - UPPER BODY - STEP 3: Does the helper touch the patient while dressing? Yes. DRESSING - UPPER BODY - STEP 4: How many of the total steps does the patient complete on his/her own? 2 DRESSING - UPPER BODY - SCORE: 3-MOD DRESSING - LOWER BODY: Sock - Left foot (one step) Sock - Right foot (one step) Underwear (three steps) ARTICLES SCORE Total number of steps: 5 DRESSING - LOWER BODY - STEP 1: Does the patient require help from a person or device, or need extra time when dressing below the [address] st? Yes. DRESSING - LOWER BODY - STEP 2: Does the patient require the assistance of a helper? Yes. DRESSING - LOWER BODY - STEP 3: Does the helper touch the patient while dressing? Yes. DRESSING - LOWER BODY - STEP 4: How many of the total steps does the patient complete on his/her own? 0 DRESSING - LOWER BODY - STEP 5: Does patient require total assistance for dressing below the waist such as the helper holding clothin g and performing basically all the activities? Yes. DRESSING - LOWER BODY - SCORE: 1-DEP TOILETING: TOILETING - STEP 1: Does the patient require the assistance of a person or device, or need extra time with toileting? Yes . TOILETING - STEP 2: Does the patient require the assistance of a helper? Yes. TOILETING - STEP 3: How much assistance does the patient require from the helper? Hands-on assistance from the helper TOILETING - STEP 4: Of the 3 tasks: 1) Adjusting clothing prior to use, 2) Cleansing of perineal area, 3) Adjusting clot julian after use; How many tasks does the patient perform WITHOUT assistance of the helper? No tasks; h chao performs all three tasks TOILETING - SCORE: 1-DEP BLADDER MANAGEMENT: Activity did not occur on this shift BLADDER MANAGEMENT - SCORE: 7-IND BOWEL MANAGEMENT: Activity did not occur on this shift BOWEL MANAGEMENT - SCORE: 7-IND TRANSFERS: BED, CHAIR, WHEELCHAIR: Activity did not occur on this shift TRANSFERS: BED, CHAIR, WHEELCHAIR - SCORE: 0-UNK TRANSFERS: TOILET: TRANSFERS: TOILET - STEP 1: Does the patient require the assistance of a person or device, or need extra time with toilet transfe rs? Yes. TRANSFERS: TOILET - STEP 2: Does the patient require the assistance of a helper? Yes. TRANSFERS: TOILET - STEP 3: How much assistance does the patient require from the helper? Patient performs half or more of the tr ansferring tasks TRANSFERS: TOILET - STEP 4: Does the patient need only incidental help such as contact guard or steadying during toilet transfer? No. Patient needs more than incidental help TRANSFERS: TOILET - SCORE: 3-MOD TRANSFERS: SHOWER: Activity did not occur on this shift TRANSFERS: SHOWER - SCORE: 0-UNK TRANSFERS: TUB: TRANSFERS: TUB - STEP 1: Does the patient require the assistance of a person or device, or need extra time with tub transfers? Yes. TRANSFERS: TUB - STEP 2: Does the patient require the assistance of a helper? Yes. TRANSFERS: TUB - STEP 3: How much assistance does the patient require from the helper? More than incidental help TRANSFERS: TUB - STEP 4: How much more help does the patient require from the helper? [place] lifts BOTH legs into or out of th e tub TRANSFERS: TUB - SCORE: 3-MOD LOCOMOTION: WALK: Activity did not occur on this shift LOCOMOTION: WALK - SCORE: 0-UNK LOCOMOTION: WHEELCHAIR: Activity did not occur on this shift LOCOMOTION: WHEELCHAIR - SCORE: 0-UNK LOCOMOTION: STAIRS: Activity did not occur on this shift LOCOMOTION: STAIRS - SCORE: 0-UNK COMPREHENSION: COMPREHENSION: TYPE: Both COMPREHENSION - STEP 1: Does the patient require help from a person or device, or need extra time to understand complex and a bstract ideas (such as current events, finances, discharge planning, medical issues, relationships, e tc)? Yes. COMPREHENSION - STEP 2: Does the patient require help to understand questions or statements about basic needs or ideas (such as hunger, thirst, sleep, safety, daily schedule, room location, or discomfort) half or more of the t lizeth? No. COMPREHENSION - STEP 3: How often does the patient need help to understand directions and conversation about basic needs? 25% - 49% of the time COMPREHENSION - SCORE: 3-MOD EXPRESSION EXPRESSION: TYPE: Both EXPRESSION - STEP 1: Does the patient require help from a person or device, or need extra time expressing complex and abst ract ideas (such as current events, finances, discharge planning, medical issues, relationships, etc) ? Yes. EXPRESSION - STEP 2: Does the patient require help to express basic necessities or ideas (such as hunger, thirst, sleep, s afety, daily schedule, room location, or discomfort) half or more of the time? No. EXPRESSION - STEP 3: How often does the patient need help to express directions and conversation about basic needs? 10-24% of the time EXPRESSION - SCORE: 4-MIN SOCIAL INTERACTION: SOCIAL INTERACTION - STEP 1: Does the patient require a helper to interact with others in social and therapeutic situations? Yes. SOCIAL INTERACTION - STEP 2: Does the patient interact appropriately half or more of the time? Yes. SOCIAL INTERACTION - STEP 3: How often does the patient need help to interact appropriately? Less than 10% of the time SOCIAL INTERACTION - SCORE: 5-SUP PROBLEM SOLVING: PROBLEM SOLVING - STEP 1: Does the patient need help from a person or device, or need extra time to solve complex problems such as managing a checking account or confronting interpersonal problems? Yes. PROBLEM SOLVING - STEP 2: Does the patient solve basic routine problems half or more of the time? Yes. PROBLEM SOLVING - STEP 3: How often does the patient need help to solve basic routine problems? 25%-49% of the time PROBLEM SOLVING - SCORE: 3-MOD MEMORY: MEMORY - STEP 1: Does the patient need help from a person or device, or need extra time to remember frequently encount ered people, daily routines, and executing requests? Yes. MEMORY - STEP 2: How often does the patient need help to remember frequently encountered people, daily routines, and e xecuting requests? 25% - 49% of the time MEMORY - SCORE: 3-MOD SIGNATURE PANEL: The following modified sections: Eating - Score, Grooming - Score, Bathing - Score, Dressing - Upper Body - Score, Dressing - Lower Body - Score, Toileting - Score, Transfers: Bed, Chair, Wheelchair - S core, Transfers: Toilet - Score, Transfers: Shower - Score, Transfers: Tub - Score, Comprehension - S core, Expression - Score, Social Interaction - Score, Problem Solving - Score, Memory - Score were [e lectronically] signed by Raquel Busby OT on SunJun 20 2018 12:43:34 T-0500 ([place] Da ylight Time)
--- NOTE | 2018-06-20 15:48 | R.PN ---
ENCOUNTER DATE AND TIME: 06/20/2018 15:42 (CDT) NAME SARI PERES DATE OF : 1940 DATE OF ADMISSION: 06/17/2018 20:40 (CDT) Chronic Kidney DiseaseSUBJECTIVE: Pt denied any depression. Pt denied any Shortness of Breath. Ambulated 155' with contact guard assistance using a rolling walker. Hgb 10.0, WBC 7.0, Glucose 242 t o 416. She will be restarted on insulin glargine 32 units at bedtime and inslulin sliding scale. VITAL SIGNS Temperature: 97.4 F SBP/DBP: 127/72 Pulse: 60 Resp: 16 MEDICATION ALLERGIES: quinolones ENVIRONMENTAL ALLERGIES: - Substance Allergies None Known - Other Allergies None Known NURSING: - Shower allowing shower - Lab Results blood Sugar Check ACHS PRECAUTIONS: - Weight Bearing Precaution NWB right LE ACTIVITIES OOB only with supervision THERAPIES: - Occupational Therapy Evaluate and Treat. - Physical Therapy Evaluate and Treat. PHYSICAL EXAM - Gen Alert and awake Lying in bed No apparent distress Oriented to: person, time, and place - Skin No breakdown No abnormalities - Eyes No abnormalities - ENMT No abnormalities - Neck No abnormalities - CVS RRR - Chest No abnormalities - Abd Soft - GI nondistended Deferred - No abnormalities - Ext No significant edema. Right lower extremity in knee immobilizer due to moderate right medial meniscus tear. - MSK 4+/5 weakness in right lower extremity - Neuro 4/5 strength right lower extremity. - Psych No abnormalities ASSESSMENT: Pt. is a 77 yo Right-handed female.On 06/16/2018 she was admitted to [facility] with diagnosis Chronic Kidney Disease.Her impairment category is Medically Complex Conditio ns 17 - Other Medically Complex Conditions (17.9).Pre-morbidly, Pt. was independent/mod-I in Self-Ca re, Sphincter Control, Transfers Control, Locomotion, and Communication; and she had good Sphincter C ontrol.Currently, she has deficits of Transfers Control, Locomotion, Communication, Social Cognition, Endurance, Balance, Safety Awareness, and Self-Care.Pt. is now referred to [facility] for acute in-patient rehabilitation in order to maximize patient's functional independence i n activities of daily living, strength, ROM, and mobility.- Rehab Goal Patient has realistic goal of being discharged at assistance level 6-[place]vin to reside at Home with Att endant. MDM/PLAN: - Physical Therapy Gait dysfunction - to improve, our physical therapists will perform initial evaluation of pt's statu s upon admission and devise an individualized program for Gait Training, and Wheel Chair mobility Inability to transfer - to improve, our physical therapists will perform initial evaluation of pt's status upon admission and devise an individualized program for Bed mobility Need for home safety evaluation - to improve, our physical therapists will perform initial evaluatio n of pt's status upon admission and devise an individualized program for Home Evaluation Need in caregiver upon discharge - to improve, our physical therapists will perform initial evaluati on of pt's status upon admission and devise an individualized program for Caregiver Training Edema - to improve, our physical therapists will perform initial evaluation of pt's status upon admi ssion and devise an individualized program for Elevation Training, and Lymphedema Therapy New precaution - to improve, our physical therapists will perform initial evaluation of pt's status upon admission and devise an individualized program for Patient precaution education Poor balance - to improve, our physical therapists will perform initial evaluation of pt's status up on admission and devise an individualized program for Balance Training Poor endurance - to improve, our physical therapists will perform initial evaluation of pt's status upon admission and devise an individualized program for Endurance Training Weakness - to improve, our physical therapists will perform initial evaluation of pt's status upon a dmission and devise an individualized program for Aquatic Therapy, Neuromuscular Reeducation, and Str engthening Achieving independence - to improve, our physical therapists will perform initial evaluation of pt's status upon admission and devise an individualized program for Community Reintegration Activities - Occupational Therapy ADL deficits - to improve, our occupation therapists will perform initial evaluation of pt's status upon admission and devise an individualized program for Bathing, Bed mobility, Community Reintegratio n, Cooking, Dressing, Eating, Fine Motor Skills, Grooming, Homemaking, Kitchen Mobility, Laundry, Pat ient Education, Safety Awareness, Splinting - Positioning, Transfers(Toilet, Tub, Shower), and Wheel Chair Management Cognitive deficits - to improve, our occupation therapists will perform initial evaluation of pt's s tatus upon admission and devise an individualized program for Cognition - orientation Need for home health care case manager - to improve, our occupation therapists will perform initial evaluation of pt's status upon admission and devise an individualized program for Caregiver Training Weakness - to improve, our occupation therapists will perform initial evaluation of pt's status upon admission and devise an individualized program for Aquatic Therapy, Balance, Endurance, UE ROM, and UE strengthening - Diet Type Continue Regular - Diet - Liquid Texture Continue Regular - Tube Feed Continue N/A - Lab Results blood Sugar Check ACHS - Weight Bearing Precaution NWB right LE - Diet - Solid Texture Continue Regular - Shower allowing shower FUNCTIONAL STATUS: UPDATED AT WEEKLY TEAM CONFERENCE - Bladder Same accident frequency: 7-Ind - No accidents in the past 7 days - Bowel Same accident frequency: 7-Ind - No accidents in the past 7 days - Walking Same score based on distance walked: 1(<=50ft) - Wheelchair Same score based on distance traveled: 1(<=50ft) FUNCTIONAL STATUS: - Self-Care A. Eating Ind B. Grooming Ind C. Bathing Ind D. Dressing - Upper Ind E. Dressing - Lower maxA F. Toileting Dep - Sphincter Control G: Bladder control Ind H: Bowel control Ind - Transfers Control I. Bed/Chair/Wheelchair maxA J. Toilet maxA K. Tub/Shower maxA - Locomotion L. Walk/Wheelchair (B) Dep M. Stairs ADNO - Communication N. Comprehension (B) Matty O. Expression (B) Matty - Social Cognition P. Social Interaction Matty Q. Problem Solving modA R. Memory Matty - Endurance Poor - Balance Poor - Safety Awareness Poor CURRENT FUNC. DEFICITS: Transfers Control, Locomotion, Communication, Social Cognition, Endurance, Balance, Safety Awareness, and Self-Care SIGNATURE PANEL: (CDT)
[2018-06-20] MEDS: WARFARIN SODIUM 2 MG TAB PO SCH (17:08)
[2018-06-20] MEDS ORDERED: INSULIN GLARGINE 100 UNITS/ML SQ SCH (21:00)
[2018-06-20] MEDS: ATORVASTATIN 40 MG TAB PO SCH (21:17)
[2018-06-20] MEDS: INSULIN DEGLUDEC SQ SCH (21:17)
[2018-06-20] MEDS ORDERED: INSULIN -REGULAR HUMAN 50 UNIT/0.5 ML ML ONE (22:05)
--- NOTE | 2018-06-21 05:34 | FAST ---
SHIFT START DATE/TIME: 06/20/2018 19:00 (CDT) SHIFT END DATE/TIME: 06/21/2018 07:00 (CDT) NAME SARI PERES DATE OF : 1940 DATE OF ADMISSION: 06/17/2018 20:40 (CDT) PHONE: AGE: 77 SSN# [id number] GENDER: Female ENCOUNTER PHYSICIAN: Dr. Huan Pepe M.D. ADMISSION DIAGNOSIS: - Medically Complex Conditions 17 - Other Medically Complex Conditions (17.9) Chronic Kidney Disease. EATING: Activity did not occur on this shift EATING - SCORE: 0-UNK GROOMING: Activity did not occur on this shift GROOMING - SCORE: 0-UNK BATHING: Activity did not occur on this shift BATHING - SCORE: 0-UNK DRESSING - UPPER BODY: Activity did not occur on this shift ARTICLES SCORE Total number of steps: 0 DRESSING - UPPER BODY - SCORE: 0-UNK DRESSING - LOWER BODY: Activity did not occur on this shift ARTICLES SCORE Total number of steps: 0 DRESSING - LOWER BODY - SCORE: 0-UNK TOILETING: TOILETING - SCORE: 0-UNK BLADDER MANAGEMENT: Wellman removes incontinent device (Depends, pull ups, etc.); cleans the patient after accident / inco ntinent episode; and, applies new incontinent device. BLADDER MANAGEMENT - SCORE: 1-DEP BLADDER MANAGEMENT - FREQUENCY OF ACCIDENTS: BLADDER MANAGEMENT(FA) - STEP 1: How many accidents has the patient had during the current shift? 0 BOWEL MANAGEMENT: Activity did not occur on this shift BOWEL MANAGEMENT - SCORE: 7-IND BOWEL MANAGEMENT - FREQUENCY OF ACCIDENTS: BOWEL MANAGEMENT(FA) - STEP 1: How many accidents has the patient had during the current shift? 0 TRANSFERS: BED, CHAIR, WHEELCHAIR: Activity did not occur on this shift TRANSFERS: BED, CHAIR, WHEELCHAIR - SCORE: 0-UNK TRANSFERS: TOILET: Activity did not occur on this shift TRANSFERS: TOILET - SCORE: 0-UNK TRANSFERS: SHOWER: Activity did not occur on this shift TRANSFERS: SHOWER - SCORE: 0-UNK TRANSFERS: TUB: Activity did not occur on this shift TRANSFERS: TUB - SCORE: 0-UNK LOCOMOTION: WALK: Activity did not occur on this shift LOCOMOTION: WALK - SCORE: 0-UNK LOCOMOTION: WHEELCHAIR: Activity did not occur on this shift LOCOMOTION: WHEELCHAIR - SCORE: 0-UNK COMPREHENSION: COMPREHENSION: TYPE: Both COMPREHENSION - STEP 1: Does the patient require help from a person or device, or need extra time to understand complex and a bstract ideas (such as current events, finances, discharge planning, medical issues, relationships, e tc)? Yes. COMPREHENSION - STEP 2: Does the patient require help to understand questions or statements about basic needs or ideas (such as hunger, thirst, sleep, safety, daily schedule, room location, or discomfort) half or more of the t lizeth? No. COMPREHENSION - STEP 3: How often does the patient need help to understand directions and conversation about basic needs? Les s than 10% of the time COMPREHENSION - SCORE: 5-SUP EXPRESSION EXPRESSION: TYPE: Both EXPRESSION - STEP 1: Does the patient require help from a person or device, or need extra time expressing complex and abst ract ideas (such as current events, finances, discharge planning, medical issues, relationships, etc) ? Yes. EXPRESSION - STEP 2: Does the patient require help to express basic necessities or ideas (such as hunger, thirst, sleep, s afety, daily schedule, room location, or discomfort) half or more of the time? No. EXPRESSION - STEP 3: How often does the patient need help to express directions and conversation about basic needs? Less t anne 10% of the time EXPRESSION - SCORE: 5-SUP SOCIAL INTERACTION: SOCIAL INTERACTION - STEP 1: Does the patient require a helper to interact with others in social and therapeutic situations? No. SOCIAL INTERACTION - STEP 2: Does the patient need extra time in social situations, OR does s/he interact with staff, other patien ts, and family members ONLY in structured environments, OR does s/he require medication for social in teraction? Yes, patient needs extra time SOCIAL INTERACTION - SCORE: 6-RONEN PROBLEM SOLVING: PROBLEM SOLVING - STEP 1: Does the patient need help from a person or device, or need extra time to solve complex problems such as managing a checking account or confronting interpersonal problems? Yes. PROBLEM SOLVING - STEP 2: Does the patient solve basic routine problems half or more of the time? Yes. PROBLEM SOLVING - STEP 3: How often does the patient need help to solve basic routine problems? Less than 10% of the time PROBLEM SOLVING - SCORE: 5-SUP MEMORY: MEMORY - STEP 1: Does the patient need help from a person or device, or need extra time to remember frequently encount ered people, daily routines, and executing requests? Yes. MEMORY - STEP 2: How often does the patient need help to remember frequently encountered people, daily routines, and e xecuting requests? Less than 10% of the time MEMORY - SCORE: 5-SUP SIGNATURE PANEL: The following modified sections: Eating - Score, Grooming - Score, Bathing - Score, Dressing - Upper Body - Score, Dressing - Lower Body - Score, Bladder Management - Score, Bowel Management - Score, Tr ansfers: Bed, Chair, Wheelchair - Score, Transfers: Toilet - Score, Transfers: Shower - Score, Transf ers: Tub - Score, Locomotion: Walk - Score, Locomotion: Wheelchair - Score, Comprehension - Score, Ex pression - Score, Social Interaction - Score, Problem Solving - Score, Memory - Score were [jose cramer] signed by Therese Domínguez RN on SunJun 21 2018 05:29:15 [facility]-0500 (Central Daylight Time)
[2018-06-21 06:56] LABS: Protime INR 3.27
[2018-06-21] MEDS: PANTOPRAZOLE 40MG TABLET PO SCH (07:44)
[2018-06-21] MEDS: NYSTATIN PWDR 100000 UNIT/GM TOP SCH ×2 (07:44→20:00)
[2018-06-21] MEDS: INSULIN -REGULAR HUMAN 50 UNIT/0.5 ML ML SQ SCH ×4 (08:38→21:27)
[2018-06-21] MEDS: ANASTROZOLE 1 MG TAB PO SCH (08:41)
[2018-06-21] MEDS: RAMIPRIL 2.5 MG CAP PO SCH (08:41)
[2018-06-21] MEDS: CHLORTHALIDONE 25 MG TAB PO SCH (08:41)
[2018-06-21] MEDS: CEPHALEXIN 250 MG CAP PO SCH (08:42)
[2018-06-21] MEDS: FERROUS SULFATE 325 MG TAB PO SCH ×3 (08:42→21:20)
[2018-06-21] MEDS: METOPROLOL XL 50 MG TAB PO SCH (08:42)
[2018-06-21] MEDS: CITALOPRAM 10 MG TABLET PO SCH (08:43)
[2018-06-21] MEDS: ASPIRIN 81 MG CHEWABLE TABLET PO SCH (08:43)
--- NOTE | 2018-06-21 09:55 | P.RH.PN ---
Estimated Length of Stay: 16 Expected Discharge Date: 07/02/18 Discharge Disposition Plan: Home Family Support: Yes Snf Goal: Mobility, Transfers, Self Care Vital Signs: Last Vital Signs Temp 97.2 F 06/21/18 07:30 Pulse 56 06/21/18 08:42 Resp 16 06/21/18 07:30 BP 131/62 06/21/18 08:42 Pulse Ox 95 06/21/18 07:30 Laboratory: Laboratory Last Values WBC 7.0 K/uL (4.3-10.9) 06/20/18 05:54 RBC 3.45 M/uL (3.86-4.86) L 06/20/18 05:54 Hgb 11.4 g/dL (12.0-15.0) L 06/20/18 10:46 Hct 35.7 % (36.0-45.0) L 06/20/18 10:46 MCV 93.3 fL (80-100) 06/20/18 05:54 MCH 30.1 pg (27.0-35.0) 06/20/18 05:54 MCHC 32.2 g/dL (32.0-36.0) 06/20/18 05:54 RDW 15.3 % (12.1-15.2) H 06/20/18 05:54 Plt Count 212 K/uL (152-406) 06/20/18 05:54 MPV 9.9 fL (7.6-11.3) 06/20/18 05:54 Neutrophils % 54.7 % (41.7-73.7) 06/20/18 05:54 Lymphocytes % 32.2 % (15.3-44.8) 06/20/18 05:54 Monocytes % 5.4 % (3.3-12.3) 06/20/18 05:54 Eosinophils % 7.0 % (0-4.4) H 06/20/18 05:54 Basophils % 0.7 % (0-1.3) 06/20/18 05:54 Absolute Neutrophils 3.9 K/uL (1.8-8.0) 06/20/18 05:54 Absolute Lymphocytes 2.3 K/uL (0.7-4.9) 06/20/18 05:54 Absolute Monocytes 0.4 K/uL (0.1-1.3) 06/20/18 05:54 Absolute Eosinophils 0.5 K/uL (0-0.5) 06/20/18 05:54 Absolute Basophils 0.0 K/uL (0-0.5) 06/20/18 05:54 PT 36.9 SECONDS (9.5-12.5) H 06/21/18 06:14 INR 3.27 06/21/18 06:14 Sodium 143 mmol/L (136-145) 06/20/18 05:54 Potassium 5.1 mmol/L (3.5-5.1) 06/20/18 05:54 Chloride 110 mmol/L (98-107) H 06/20/18 05:54 Carbon Dioxide 28 mmol/L (21-32) 06/20/18 05:54 BUN 59 mg/dL (7-18) H 06/20/18 05:54 Creatinine 1.92 mg/dL (0.55-1.3) H 06/20/18 05:54 Estimated GFR 25 mL/min (=/>90) L 06/20/18 05:54 Glucose 200 mg/dL (74-106) H 06/20/18 05:54 POC Glucose 287 mg/dl (65-120) H 06/21/18 07:52 Calcium 8.8 mg/dL (8.5-10.1) 06/20/18 05:54 Magnesium 2.0 mg/dL (1.8-2.4) 06/18/18 05:33 Albumin 2.7 g/dL (3.4-5.0) L 06/20/18 05:54 Prealbumin 10.8 mg/dL (20-40) L 06/20/18 05:54 Weight: 186 lb 1.6 oz Wound Present: Yes Closed Surgical Incision Present: No Negative Pressure Wound Therapy Present: No Physician Update: Labs reviewed. Hgb 11.4, INR 3.27, Rate And Cost Analyst 1.92, glucose 190 to 287, prealbumin 10.8. She had an episode of hypotension with a showed and bowel movement. She ambulated 100' with contact guard assistance. She has cognitive challenges and will require supervision after discharge home. Medical Issues: UTI - on keflex 500mg BID PO. Coumadin 2mg daily PO Functional Improvement: Patient has met all short-term goals at this time and is progressing well toward long-term goals. Patient presents w/ good work ethic. Speech Therapy Update: Pt. has significant memory impairments. She exhibits a moderate processing delay and required frequent repetition, simplification and verbal cues. Pt. needs frequent reminders. She has difficulty communicating verbally in both [place] and [place]ian. This may be due to her educational level. At this time, pt. is not able to live alone safely due to reduced insight, reduced safety awareness and judgment. She will require 24 hour supervision upon her d/c. Summary: Patient's care plan and nursing home goals have been reviewed and revised as necessary. Please see the Rehabilitation Signature page for all necessary signatures.
--- NOTE | 2018-06-21 14:52 | FAST ---
ENCOUNTER DATE AND TIME: 06/19/2018 08:00 (CDT) NAME SARI PERES DATE OF : 1940 DATE OF ADMISSION: 06/17/2018 20:40 (CDT) PHONE: AGE: 77 SSN# [id number] GENDER: Female ENCOUNTER PHYSICIAN: Dr. Huan Pepe M.D. ADMISSION DIAGNOSIS: - Medically Complex Conditions 17 - Other Medically Complex Conditions (17.9) Chronic Kidney Disease. EATING: Activity did not occur on this shift EATING - SCORE: 0-UNK GROOMING: Activity did not occur on this shift GROOMING - SCORE: 0-UNK BATHING: Activity did not occur on this shift BATHING - SCORE: 0-UNK DRESSING - UPPER BODY: Activity did not occur on this shift Patient is not dressing in public clothing ARTICLES SCORE Total number of steps: 0 DRESSING - UPPER BODY - SCORE: 0-UNK DRESSING - LOWER BODY: Activity did not occur on this shift Patient is not dressing in public clothing ARTICLES SCORE Total number of steps: 0 DRESSING - LOWER BODY - SCORE: 0-UNK TOILETING: Activity did not occur on this shift TOILETING - SCORE: 0-UNK BLADDER MANAGEMENT: Activity did not occur on this shift BLADDER MANAGEMENT - SCORE: 7-IND BOWEL MANAGEMENT: Activity did not occur on this shift BOWEL MANAGEMENT - SCORE: 7-IND TRANSFERS: BED, CHAIR, WHEELCHAIR: TRANSFERS: BED, CHAIR, WHEELCHAIR - STEP 1: Does the patient require assistance of a person or device, or need extra time with bed, chair, or whe elchair transfers? Yes. TRANSFERS: BED, CHAIR, WHEELCHAIR - STEP 2: Does the patient require the assistance of a helper? Yes. TRANSFERS: BED, CHAIR, WHEELCHAIR - STEP 3: How much assistance does the patient require from the helper? Only supervision TRANSFERS: BED, CHAIR, WHEELCHAIR - SCORE: 5-SUP TRANSFERS: TOILET: Activity did not occur on this shift TRANSFERS: TOILET - SCORE: 0-UNK TRANSFERS: SHOWER: Activity did not occur on this shift TRANSFERS: SHOWER - SCORE: 0-UNK TRANSFERS: TUB: Activity did not occur on this shift TRANSFERS: TUB - SCORE: 0-UNK LOCOMOTION: WALK: LOCOMOTION: WALK - STEP 1: Does the patient need help from a person or device, or need extra time to walk 150 feet? Yes. LOCOMOTION: WALK - STEP 2: How much assistance does the patient require to walk a minimum of 150 feet? Only supervision, cuing, or coaxing LOCOMOTION: WALK - SCORE: 5-SUP LOCOMOTION: WHEELCHAIR: LOCOMOTION: WHEELCHAIR - STEP 1: Does the patient need help to go 150 feet in a wheelchair? Yes. LOCOMOTION: WHEELCHAIR - STEP 2: How much assistance does the patient need from the helper? Only supervision, cuing, or coaxing LOCOMOTION: WHEELCHAIR - SCORE: 5-SUP LOCOMOTION: STAIRS: Activity did not occur on this shift LOCOMOTION: STAIRS - SCORE: 0-UNK COMPREHENSION: COMPREHENSION - SCORE: 0-UNK EXPRESSION EXPRESSION - SCORE: 0-UNK SOCIAL INTERACTION: SOCIAL INTERACTION - SCORE: 0-UNK PROBLEM SOLVING: PROBLEM SOLVING - SCORE: 0-UNK MEMORY: MEMORY - SCORE: 0-UNK SIGNATURE PANEL: The following modified sections: Transfers: Bed, Chair, Wheelchair - Score, Transfers: Toilet - Score , Locomotion: Walk - Score, Locomotion: Wheelchair - Score, Locomotion: Stairs - Score were [brenda patton] signed by Josue Novak PTA on SunJun 21 2018 14:52:17 T-0500 (Central Daylight Time)
--- NOTE | 2018-06-21 14:59 | FAST ---
ENCOUNTER DATE AND TIME: 06/20/2018 08:00 (CDT) NAME SARI PERES DATE OF : 1940 DATE OF ADMISSION: 06/17/2018 20:40 (CDT) PHONE: AGE: 77 SSN# [id number] GENDER: Female ENCOUNTER PHYSICIAN: Dr. Huan Pepe M.D. ADMISSION DIAGNOSIS: - Medically Complex Conditions 17 - Other Medically Complex Conditions (17.9) Chronic Kidney Disease. EATING: Activity did not occur on this shift EATING - SCORE: 0-UNK GROOMING: Activity did not occur on this shift GROOMING - SCORE: 0-UNK BATHING: Activity did not occur on this shift BATHING - SCORE: 0-UNK DRESSING - UPPER BODY: Activity did not occur on this shift Patient is not dressing in public clothing ARTICLES SCORE Total number of steps: 0 DRESSING - UPPER BODY - SCORE: 0-UNK DRESSING - LOWER BODY: Activity did not occur on this shift Patient is not dressing in public clothing ARTICLES SCORE Total number of steps: 0 DRESSING - LOWER BODY - SCORE: 0-UNK TOILETING: Activity did not occur on this shift TOILETING - SCORE: 0-UNK BLADDER MANAGEMENT: Activity did not occur on this shift BLADDER MANAGEMENT - SCORE: 7-IND BOWEL MANAGEMENT: Activity did not occur on this shift BOWEL MANAGEMENT - SCORE: 7-IND TRANSFERS: BED, CHAIR, WHEELCHAIR: TRANSFERS: BED, CHAIR, WHEELCHAIR - STEP 1: Does the patient require assistance of a person or device, or need extra time with bed, chair, or whe elchair transfers? Yes. TRANSFERS: BED, CHAIR, WHEELCHAIR - STEP 2: Does the patient require the assistance of a helper? Yes. TRANSFERS: BED, CHAIR, WHEELCHAIR - STEP 3: How much assistance does the patient require from the helper? Only supervision TRANSFERS: BED, CHAIR, WHEELCHAIR - SCORE: 5-SUP TRANSFERS: TOILET: Activity did not occur on this shift TRANSFERS: TOILET - SCORE: 0-UNK TRANSFERS: SHOWER: Activity did not occur on this shift TRANSFERS: SHOWER - SCORE: 0-UNK TRANSFERS: TUB: Activity did not occur on this shift TRANSFERS: TUB - SCORE: 0-UNK LOCOMOTION: WALK: LOCOMOTION: WALK - STEP 1: Does the patient need help from a person or device, or need extra time to walk 150 feet? Yes. LOCOMOTION: WALK - STEP 2: How much assistance does the patient require to walk a minimum of 150 feet? Only supervision, cuing, or coaxing LOCOMOTION: WALK - SCORE: 5-SUP LOCOMOTION: WHEELCHAIR: LOCOMOTION: WHEELCHAIR - STEP 1: Does the patient need help to go 150 feet in a wheelchair? Yes. LOCOMOTION: WHEELCHAIR - STEP 2: How much assistance does the patient need from the helper? Only supervision, cuing, or coaxing LOCOMOTION: WHEELCHAIR - SCORE: 5-SUP LOCOMOTION: STAIRS: Patient goes up and down less than 4 to 6 stairs LOCOMOTION: STAIRS - SCORE: 1-DEP COMPREHENSION: COMPREHENSION - SCORE: 0-UNK EXPRESSION EXPRESSION - SCORE: 0-UNK SOCIAL INTERACTION: SOCIAL INTERACTION - SCORE: 0-UNK PROBLEM SOLVING: PROBLEM SOLVING - SCORE: 0-UNK MEMORY: MEMORY - SCORE: 0-UNK SIGNATURE PANEL: The following modified sections: Transfers: Bed, Chair, Wheelchair - Score, Transfers: Toilet - Score , Locomotion: Walk - Score, Locomotion: Wheelchair - Score, Locomotion: Stairs - Score were [brenda patton] signed by Josue Novak PTA on SunJun 21 2018 14:58:27 GMT-0500 (Central Daylight Time)
--- NOTE | 2018-06-21 15:23 | FAST ---
ENCOUNTER DATE AND TIME: 06/21/2018 08:00 (CDT) NAME SARI PERES DATE OF : 1940 DATE OF ADMISSION: 06/17/2018 20:40 (CDT) PHONE: AGE: 77 SSN# [id number] GENDER: Female ENCOUNTER PHYSICIAN: Dr. Huan Pepe M.D. ADMISSION DIAGNOSIS: - Medically Complex Conditions 17 - Other Medically Complex Conditions (17.9) Chronic Kidney Disease. EATING: Activity did not occur on this shift EATING - SCORE: 0-UNK GROOMING: Activity did not occur on this shift GROOMING - SCORE: 0-UNK BATHING: Activity did not occur on this shift BATHING - SCORE: 0-UNK DRESSING - UPPER BODY: Activity did not occur on this shift Patient is not dressing in public clothing ARTICLES SCORE Total number of steps: 0 DRESSING - UPPER BODY - SCORE: 0-UNK DRESSING - LOWER BODY: Activity did not occur on this shift Patient is not dressing in public clothing ARTICLES SCORE Total number of steps: 0 DRESSING - LOWER BODY - SCORE: 0-UNK TOILETING: Activity did not occur on this shift TOILETING - SCORE: 0-UNK BLADDER MANAGEMENT: Activity did not occur on this shift BLADDER MANAGEMENT - SCORE: 7-IND BOWEL MANAGEMENT: Activity did not occur on this shift BOWEL MANAGEMENT - SCORE: 7-IND TRANSFERS: BED, CHAIR, WHEELCHAIR: TRANSFERS: BED, CHAIR, WHEELCHAIR - STEP 1: Does the patient require assistance of a person or device, or need extra time with bed, chair, or whe elchair transfers? Yes. TRANSFERS: BED, CHAIR, WHEELCHAIR - STEP 2: Does the patient require the assistance of a helper? Yes. TRANSFERS: BED, CHAIR, WHEELCHAIR - STEP 3: How much assistance does the patient require from the helper? Only supervision TRANSFERS: BED, CHAIR, WHEELCHAIR - SCORE: 5-SUP TRANSFERS: TOILET: Activity did not occur on this shift TRANSFERS: TOILET - SCORE: 0-UNK TRANSFERS: SHOWER: Activity did not occur on this shift TRANSFERS: SHOWER - SCORE: 0-UNK TRANSFERS: TUB: Activity did not occur on this shift TRANSFERS: TUB - SCORE: 0-UNK LOCOMOTION: WALK: LOCOMOTION: WALK - STEP 1: Does the patient need help from a person or device, or need extra time to walk 150 feet? Yes. LOCOMOTION: WALK - STEP 2: How much assistance does the patient require to walk a minimum of 150 feet? Only supervision, cuing, or coaxing LOCOMOTION: WALK - SCORE: 5-SUP LOCOMOTION: WHEELCHAIR: LOCOMOTION: WHEELCHAIR - STEP 1: Does the patient need help to go 150 feet in a wheelchair? Yes. LOCOMOTION: WHEELCHAIR - STEP 2: How much assistance does the patient need from the helper? Patient goes less than 150 feet - but more than 50 feet - with the assistance of only one helper LOCOMOTION: WHEELCHAIR - SCORE: 2-MAX LOCOMOTION: STAIRS: Activity did not occur on this shift LOCOMOTION: STAIRS - SCORE: 0-UNK COMPREHENSION: COMPREHENSION - SCORE: 0-UNK EXPRESSION EXPRESSION - SCORE: 0-UNK SOCIAL INTERACTION: SOCIAL INTERACTION - SCORE: 0-UNK PROBLEM SOLVING: PROBLEM SOLVING - SCORE: 0-UNK MEMORY: MEMORY - SCORE: 0-UNK SIGNATURE PANEL: The following modified sections: Transfers: Bed, Chair, Wheelchair - Score, Transfers: Toilet - Score , Locomotion: Walk - Score, Locomotion: Wheelchair - Score, Locomotion: Stairs - Score were [brenda patton] signed by Josue Novak PTA on SunJun 21 2018 15:22:11 GMT-0500 (Central Daylight Time)
--- NOTE | 2018-06-21 16:40 | FAST ---
SHIFT START DATE/TIME: 06/21/2018 07:00 (CDT) SHIFT END DATE/TIME: 06/21/2018 19:00 (CDT) NAME SARI PERES DATE OF : 1940 DATE OF ADMISSION: 06/17/2018 20:40 (CDT) PHONE: AGE: 77 SSN# [id number] GENDER: Female ENCOUNTER PHYSICIAN: Dr. Huan Pepe M.D. ADMISSION DIAGNOSIS: - Medically Complex Conditions 17 - Other Medically Complex Conditions (17.9) Chronic Kidney Disease. EATING: EATING - STEP 1: Does the patient require the assistance of a person or device, or need extra time when eating? No. EATING - SCORE: 7-IND GROOMING: Comb/brush hair Oral care Wash, rinse, and dry face Wash, rinse, and dry hands GROOMING - STEP 1: Does the patient require the assistance of a person or device, or need extra time when grooming? Yes. GROOMING - STEP 2: Does the patient require the assistance of a helper? Yes. GROOMING - STEP 3: How much assistance does the patient require from the helper? Only prior equipment preparation/set up from the helper GROOMING - SCORE: 5-SUP BATHING: Activity did not occur on this shift BATHING - SCORE: 0-UNK DRESSING - UPPER BODY: Activity did not occur on this shift ARTICLES SCORE Total number of steps: 0 DRESSING - UPPER BODY - SCORE: 0-UNK DRESSING - LOWER BODY: Underwear (three steps) ARTICLES SCORE Total number of steps: 3 DRESSING - LOWER BODY - STEP 1: Does the patient require help from a person or device, or need extra time when dressing below the [address]? Yes. DRESSING - LOWER BODY - STEP 2: Does the patient require the assistance of a helper? Yes. DRESSING - LOWER BODY - STEP 3: Does the helper touch the patient while dressing? Yes. DRESSING - LOWER BODY - STEP 4: How many of the total steps does the patient complete on his/her own? 3 DRESSING - LOWER BODY - SCORE: 4-MIN TOILETING: TOILETING - STEP 1: Does the patient require the assistance of a person or device, or need extra time with toileting? Yes . TOILETING - STEP 2: Does the patient require the assistance of a helper? Yes. TOILETING - STEP 3: How much assistance does the patient require from the helper? Hands-on assistance from the helper TOILETING - STEP 4: Of the 3 tasks: 1) Adjusting clothing prior to use, 2) Cleansing of perineal area, 3) Adjusting clot julian after use; How many tasks does the patient perform WITHOUT assistance of the helper? Two tasks TOILETING - SCORE: 3-MOD BLADDER MANAGEMENT: BLADDER MANAGEMENT - STEP 1: Does the patient control the bladder completely and intentionally without equipment or devices or med ications, and is always continent? No. BLADDER MANAGEMENT - STEP 2: Does the patient require the assistance of a helper? Yes. BLADDER MANAGEMENT - STEP 3: How much assistance does the patient require from the helper? Only set-up of equipment - such as plac ing it within reach of the patient or emptying a device - to maintain either satisfactory voiding pat tern or managing an external device, such as an absorbent pad, ileal device, or catheter BLADDER MANAGEMENT - SCORE: 5-SUP BLADDER MANAGEMENT - FREQUENCY OF ACCIDENTS: BLADDER MANAGEMENT(FA) - STEP 1: How many accidents has the patient had during the current shift? 2 BOWEL MANAGEMENT: BOWEL MANAGEMENT - STEP 1: Does the patient control bowels completely and intentionally without equipment devices or medications AND is always continent? Yes. BOWEL MANAGEMENT - SCORE: 7-IND BOWEL MANAGEMENT - FREQUENCY OF ACCIDENTS: BOWEL MANAGEMENT(FA) - STEP 1: How many accidents has the patient had during the current shift? 0 TRANSFERS: BED, CHAIR, WHEELCHAIR: TRANSFERS: BED, CHAIR, WHEELCHAIR - STEP 1: Does the patient require assistance of a person or device, or need extra time with bed, chair, or whe elchair transfers? Yes. TRANSFERS: BED, CHAIR, WHEELCHAIR - STEP 2: Does the patient require the assistance of a helper? Yes. TRANSFERS: BED, CHAIR, WHEELCHAIR - STEP 3: How much assistance does the patient require from the helper? Steadying/guiding assistance TRANSFERS: BED, CHAIR, WHEELCHAIR - SCORE: 4-MIN TRANSFERS: TOILET: TRANSFERS: TOILET - STEP 1: Does the patient require the assistance of a person or device, or need extra time with toilet transfe rs? Yes. TRANSFERS: TOILET - STEP 2: Does the patient require the assistance of a helper? Yes. TRANSFERS: TOILET - STEP 3: How much assistance does the patient require from the helper? Patient performs half or more of the tr ansferring tasks TRANSFERS: TOILET - STEP 4: Does the patient need only incidental help such as contact guard or steadying during toilet transfer? Yes. TRANSFERS: TOILET - SCORE: 4-MIN TRANSFERS: SHOWER: Activity did not occur on this shift TRANSFERS: SHOWER - SCORE: 0-UNK TRANSFERS: TUB: Activity did not occur on this shift TRANSFERS: TUB - SCORE: 0-UNK LOCOMOTION: WALK: Activity did not occur on this shift LOCOMOTION: WALK - SCORE: 0-UNK LOCOMOTION: WHEELCHAIR: Activity did not occur on this shift LOCOMOTION: WHEELCHAIR - SCORE: 0-UNK COMPREHENSION: COMPREHENSION - SCORE: 0-UNK EXPRESSION EXPRESSION - SCORE: 0-UNK SOCIAL INTERACTION: SOCIAL INTERACTION - SCORE: 0-UNK PROBLEM SOLVING: PROBLEM SOLVING - SCORE: 0-UNK MEMORY: MEMORY - SCORE: 0-UNK SIGNATURE PANEL: The following modified sections: Eating - Score, Grooming - Score, Bathing - Score, Dressing - Upper Body - Score, Dressing - Lower Body - Score, Toileting - Score, Bladder Management - Score, Bowel Man agement - Score, Transfers: Bed, Chair, Wheelchair - Score, Transfers: Toilet - Score, Transfers: Thelma wer - Score, Transfers: Tub - Score, Locomotion: Walk - Score, Locomotion: Wheelchair - Score, Compre hension - Score, Expression - Score, Social Interaction - Score, Problem Solving - Score, Memory - Sc ore were [electronically] signed by Natalie Landa CNA on SunJun 21 2018 16:38:48 T-0500 (Centra l Daylight Time)
[2018-06-21] MEDS: WARFARIN SODIUM 2 MG TAB PO SCH (17:10)
[2018-06-21] MEDS: CEPHALEXIN 500 MG CAP PO SCH (21:20)
[2018-06-21] MEDS: ATORVASTATIN 40 MG TAB PO SCH (21:20)
[2018-06-21] MEDS: DOCUSATE NA/SENNA CONC 1 TAB PO PRN (21:20)
[2018-06-21] MEDS: INSULIN DEGLUDEC SQ SCH (21:28)
--- NOTE | 2018-06-22 02:25 | FAST ---
SHIFT START DATE/TIME: 06/21/2018 19:00 (CDT) SHIFT END DATE/TIME: 06/22/2018 07:00 (CDT) NAME SARI PERES DATE OF : 1940 DATE OF ADMISSION: 06/17/2018 20:40 (CDT) PHONE: AGE: 77 SSN# [id number] GENDER: Female ENCOUNTER PHYSICIAN: Dr. Huan Pepe M.D. ADMISSION DIAGNOSIS: - Medically Complex Conditions 17 - Other Medically Complex Conditions (17.9) Chronic Kidney Disease. EATING: Activity did not occur on this shift EATING - SCORE: 0-UNK GROOMING: Activity did not occur on this shift GROOMING - SCORE: 0-UNK BATHING: Activity did not occur on this shift BATHING - SCORE: 0-UNK DRESSING - UPPER BODY: Patient is not dressing in public clothing ARTICLES SCORE Total number of steps: 0 DRESSING - UPPER BODY - SCORE: 0-UNK DRESSING - LOWER BODY: Patient is not dressing in public clothing ARTICLES SCORE Total number of steps: 0 DRESSING - LOWER BODY - SCORE: 0-UNK TOILETING: TOILETING - STEP 1: Does the patient require the assistance of a person or device, or need extra time with toileting? Yes . TOILETING - STEP 2: Does the patient require the assistance of a helper? Yes. TOILETING - STEP 3: How much assistance does the patient require from the helper? Hands-on assistance from the helper TOILETING - STEP 4: Of the 3 tasks: 1) Adjusting clothing prior to use, 2) Cleansing of perineal area, 3) Adjusting clot julian after use; How many tasks does the patient perform WITHOUT assistance of the helper? No tasks; h chao performs all three tasks TOILETING - SCORE: 1-DEP BLADDER MANAGEMENT: BLADDER MANAGEMENT - STEP 1: Does the patient control the bladder completely and intentionally without equipment or devices or med ications, and is always continent? No. BLADDER MANAGEMENT - STEP 2: Does the patient require the assistance of a helper? Yes. BLADDER MANAGEMENT - STEP 3: How much assistance does the patient require from the helper? Patient requires contact assistance fro m the helper BLADDER MANAGEMENT - STEP 4: How much contact assistance does the patient require from the helper? Patient requires minimal assist ance to maintain an external device - by positioning, and the patient performs 75% or more of bladder management tasks, while the helper provides less than 25% of the assistance to position patient on / off bedpan BLADDER MANAGEMENT - SCORE: 4-MIN BOWEL MANAGEMENT: Activity did not occur on this shift BOWEL MANAGEMENT - SCORE: 7-IND TRANSFERS: BED, CHAIR, WHEELCHAIR: TRANSFERS: BED, CHAIR, WHEELCHAIR - STEP 1: Does the patient require assistance of a person or device, or need extra time with bed, chair, or whe elchair transfers? Yes. TRANSFERS: BED, CHAIR, WHEELCHAIR - STEP 2: Does the patient require the assistance of a helper? Yes. TRANSFERS: BED, CHAIR, WHEELCHAIR - STEP 3: How much assistance does the patient require from the helper? Steadying/guiding assistance TRANSFERS: BED, CHAIR, WHEELCHAIR - SCORE: 4-MIN TRANSFERS: TOILET: TRANSFERS: TOILET - STEP 1: Does the patient require the assistance of a person or device, or need extra time with toilet transfe rs? Yes. TRANSFERS: TOILET - STEP 2: Does the patient require the assistance of a helper? Yes. TRANSFERS: TOILET - STEP 3: How much assistance does the patient require from the helper? Patient performs half or more of the tr ansferring tasks TRANSFERS: TOILET - STEP 4: Does the patient need only incidental help such as contact guard or steadying during toilet transfer? No. Patient needs more than incidental help TRANSFERS: TOILET - SCORE: 3-MOD TRANSFERS: SHOWER: Activity did not occur on this shift TRANSFERS: SHOWER - SCORE: 0-UNK TRANSFERS: TUB: Activity did not occur on this shift TRANSFERS: TUB - SCORE: 0-UNK LOCOMOTION: WALK: Activity did not occur on this shift LOCOMOTION: WALK - SCORE: 0-UNK LOCOMOTION: WHEELCHAIR: Activity did not occur on this shift LOCOMOTION: WHEELCHAIR - SCORE: 0-UNK COMPREHENSION: COMPREHENSION: TYPE: Both COMPREHENSION - STEP 1: Does the patient require help from a person or device, or need extra time to understand complex and a bstract ideas (such as current events, finances, discharge planning, medical issues, relationships, e tc)? No. COMPREHENSION - STEP 2: Does the patient need extra time, require an assistive device (such as glasses for visual comprehensi on or a hearing aid for auditory comprehension) or does s/he have mild difficulty understanding compl ex and abstract information? Yes. COMPREHENSION - SCORE: 6-RONEN EXPRESSION EXPRESSION: TYPE: Both EXPRESSION - STEP 1: Does the patient require help from a person or device, or need extra time expressing complex and abst ract ideas (such as current events, finances, discharge planning, medical issues, relationships, etc) ? No. EXPRESSION - STEP 2: Does the patient need extra time, require an assistive device (such as augmentive communication syste m or a communication board), OR does s/he have mild difficulty expressing complex and abstract ideas (including mild dysarthria or mild word-find problems)? Yes. EXPRESSION - SCORE: 6-RONEN SOCIAL INTERACTION: SOCIAL INTERACTION - STEP 1: Does the patient require a helper to interact with others in social and therapeutic situations? No. SOCIAL INTERACTION - STEP 2: Does the patient need extra time in social situations, OR does s/he interact with staff, other patien ts, and family members ONLY in structured environments, OR does s/he require medication for social in teraction? Yes, patient needs extra time SOCIAL INTERACTION - SCORE: 6-RONEN PROBLEM SOLVING: PROBLEM SOLVING - STEP 1: Does the patient need help from a person or device, or need extra time to solve complex problems such as managing a checking account or confronting interpersonal problems? No. PROBLEM SOLVING - STEP 2: Does the patient require extra time to make decisions or solve problems, OR does s/he have slight dif ficulty reading, initiating, or self-correcting in unfamiliar situations? Yes, patient needs extra ti me. PROBLEM SOLVING - SCORE: 6-RONEN MEMORY: MEMORY - STEP 1: Does the patient need help from a person or device, or need extra time to remember frequently encount ered people, daily routines, and executing requests? No. MEMORY - STEP 2: Does the patient have slight difficulty recognizing frequently encountered people, daily routines, or executing requests without the need for repetition or using self-initiated or environmental cues to remember? Yes. MEMORY - SCORE: 6-RONEN
[2018-06-22 06:34] LABS: Protime INR 3.75
[2018-06-22] MEDS: PANTOPRAZOLE 40MG TABLET PO SCH (07:50)
[2018-06-22] MEDS ORDERED: FLUDROCORTISONE 0.1 MG TAB PO SCH (08:00)
[2018-06-22] MEDS ORDERED: METOPROLOL XL 25 MG TAB PO SCH (08:00)
[2018-06-22] MEDS: INSULIN -REGULAR HUMAN 50 UNIT/0.5 ML ML SQ SCH ×4 (08:15→21:37)
[2018-06-22] MEDS: RAMIPRIL 2.5 MG CAP PO SCH (08:17)
[2018-06-22] MEDS: CEPHALEXIN 500 MG CAP PO SCH ×2 (08:17→20:36)
[2018-06-22] MEDS: ANASTROZOLE 1 MG TAB PO SCH (08:18)
[2018-06-22] MEDS: ASPIRIN 81 MG CHEWABLE TABLET PO SCH (08:18)
[2018-06-22] MEDS: CHLORTHALIDONE 25 MG TAB PO SCH (08:18)
[2018-06-22] MEDS: CITALOPRAM 10 MG TABLET PO SCH (08:19)
[2018-06-22] MEDS: FERROUS SULFATE 325 MG TAB PO SCH ×3 (08:19→20:36)
[2018-06-22] MEDS: NYSTATIN PWDR 100000 UNIT/GM TOP SCH ×2 (08:36→20:37)
--- NOTE | 2018-06-22 09:04 | FAST ---
SHIFT START DATE/TIME: 06/22/2018 07:00 (CDT) SHIFT END DATE/TIME: 06/22/2018 19:00 (CDT) NAME SARI PERES DATE OF : 1940 DATE OF ADMISSION: 06/17/2018 20:40 (CDT) PHONE: AGE: 77 SSN# [id number] GENDER: Female ENCOUNTER PHYSICIAN: Dr. Huan Pepe M.D. ADMISSION DIAGNOSIS: - Medically Complex Conditions 17 - Other Medically Complex Conditions (17.9) Chronic Kidney Disease. EATING: EATING - STEP 1: Does the patient require the assistance of a person or device, or need extra time when eating? Yes. EATING - STEP 2: Does the patient require the assistance of a helper? Yes. EATING - STEP 3: Does the patient perform half or more of the eating tasks? Yes. EATING - STEP 4: Does the patient need only supervision, cuing, coaxing OR help to apply an orthosis OR help to cut fo od, open containers, pour liquids, or butter bread? Yes. EATING - SCORE: 5-SUP GROOMING: Comb/brush hair Wash, rinse, and dry face Wash, rinse, and dry hands GROOMING - STEP 1: Does the patient require the assistance of a person or device, or need extra time when grooming? No. GROOMING - SCORE: 7-IND BATHING: Activity did not occur on this shift BATHING - SCORE: 0-UNK DRESSING - UPPER BODY: T-shirt/pullover shirt (four steps) ARTICLES SCORE Total number of steps: 4 DRESSING - UPPER BODY - STEP 1: Does the patient require help from a person or device, or need extra time when dressing above the [address]? Yes. DRESSING - UPPER BODY - STEP 2: Does the patient require the assistance of a helper? Yes. DRESSING - UPPER BODY - STEP 3: Does the helper touch the patient while dressing? Yes. DRESSING - UPPER BODY - STEP 4: How many of the total steps does the patient complete on his/her own? 3 DRESSING - UPPER BODY - SCORE: 4-MIN DRESSING - LOWER BODY: ARTICLES SCORE Total number of steps: 8 DRESSING - LOWER BODY - STEP 1: Does the patient require help from a person or device, or need extra time when dressing below the [address]? Yes. DRESSING - LOWER BODY - STEP 2: Does the patient require the assistance of a helper? Yes. DRESSING - LOWER BODY - STEP 3: Does the helper touch the patient while dressing? Yes. DRESSING - LOWER BODY - STEP 4: How many of the total steps does the patient complete on his/her own? 4 DRESSING - LOWER BODY - SCORE: 3-MOD TOILETING: TOILETING - STEP 1: Does the patient require the assistance of a person or device, or need extra time with toileting? Yes . TOILETING - STEP 2: Does the patient require the assistance of a helper? Yes. TOILETING - STEP 3: How much assistance does the patient require from the helper? Hands-on assistance from the helper TOILETING - STEP 4: Of the 3 tasks: 1) Adjusting clothing prior to use, 2) Cleansing of perineal area, 3) Adjusting clot julian after use; How many tasks does the patient perform WITHOUT assistance of the helper? Three tasks with steadying assistance from the helper TOILETING - SCORE: 4-MIN BLADDER MANAGEMENT: BLADDER MANAGEMENT - STEP 1: Does the patient control the bladder completely and intentionally without equipment or devices or med ications, and is always continent? No. BLADDER MANAGEMENT - STEP 2: Does the patient require the assistance of a helper? No, patient requires and independently uses an a ssistive device, such as a urinal, bedpan, bedside commode, catheter, absorbent pad, or collecting de vice BLADDER MANAGEMENT - SCORE: 6-RONEN BOWEL MANAGEMENT: Activity did not occur on this shift BOWEL MANAGEMENT - SCORE: 7-IND TRANSFERS: BED, CHAIR, WHEELCHAIR: TRANSFERS: BED, CHAIR, WHEELCHAIR - STEP 1: Does the patient require assistance of a person or device, or need extra time with bed, chair, or whe elchair transfers? Yes. TRANSFERS: BED, CHAIR, WHEELCHAIR - STEP 2: Does the patient require the assistance of a helper? Yes. TRANSFERS: BED, CHAIR, WHEELCHAIR - STEP 3: How much assistance does the patient require from the helper? Steadying/guiding assistance TRANSFERS: BED, CHAIR, WHEELCHAIR - SCORE: 4-MIN TRANSFERS: TOILET: TRANSFERS: TOILET - STEP 1: Does the patient require the assistance of a person or device, or need extra time with toilet transfe rs? Yes. TRANSFERS: TOILET - STEP 2: Does the patient require the assistance of a helper? Yes. TRANSFERS: TOILET - STEP 3: How much assistance does the patient require from the helper? Patient performs half or more of the tr ansferring tasks TRANSFERS: TOILET - STEP 4: Does the patient need only incidental help such as contact guard or steadying during toilet transfer? No. Patient needs more than incidental help TRANSFERS: TOILET - SCORE: 3-MOD TRANSFERS: SHOWER: Activity did not occur on this shift TRANSFERS: SHOWER - SCORE: 0-UNK TRANSFERS: TUB: Activity did not occur on this shift TRANSFERS: TUB - SCORE: 0-UNK LOCOMOTION: WALK: Activity did not occur on this shift LOCOMOTION: WALK - SCORE: 0-UNK LOCOMOTION: WHEELCHAIR: Activity did not occur on this shift LOCOMOTION: WHEELCHAIR - SCORE: 0-UNK COMPREHENSION: COMPREHENSION: TYPE: Both COMPREHENSION - STEP 1: Does the patient require help from a person or device, or need extra time to understand complex and a bstract ideas (such as current events, finances, discharge planning, medical issues, relationships, e tc)? No. COMPREHENSION - STEP 2: Does the patient need extra time, require an assistive device (such as glasses for visual comprehensi on or a hearing aid for auditory comprehension) or does s/he have mild difficulty understanding compl ex and abstract information? Yes. COMPREHENSION - SCORE: 6-RONEN EXPRESSION EXPRESSION: TYPE: Both EXPRESSION - STEP 1: Does the patient require help from a person or device, or need extra time expressing complex and abst ract ideas (such as current events, finances, discharge planning, medical issues, relationships, etc) ? No. EXPRESSION - STEP 2: Does the patient need extra time, require an assistive device (such as augmentive communication syste m or a communication board), OR does s/he have mild difficulty expressing complex and abstract ideas (including mild dysarthria or mild word-find problems)? Yes. EXPRESSION - SCORE: 6-RONEN SOCIAL INTERACTION: SOCIAL INTERACTION - STEP 1: Does the patient require a helper to interact with others in social and therapeutic situations? No. SOCIAL INTERACTION - STEP 2: Does the patient need extra time in social situations, OR does s/he interact with staff, other patien ts, and family members ONLY in structured environments, OR does s/he require medication for social in teraction? Yes, patient needs extra time SOCIAL INTERACTION - SCORE: 6-RONEN PROBLEM SOLVING: PROBLEM SOLVING - STEP 1: Does the patient need help from a person or device, or need extra time to solve complex problems such as managing a checking account or confronting interpersonal problems? No. PROBLEM SOLVING - STEP 2: Does the patient require extra time to make decisions or solve problems, OR does s/he have slight dif ficulty reading, initiating, or self-correcting in unfamiliar situations? Yes, patient needs extra ti me. PROBLEM SOLVING - SCORE: 6-RONEN MEMORY: MEMORY - STEP 1: Does the patient need help from a person or device, or need extra time to remember frequently encount ered people, daily routines, and executing requests? No. MEMORY - STEP 2: Does the patient have slight difficulty recognizing frequently encountered people, daily routines, or executing requests without the need for repetition or using self-initiated or environmental cues to remember? Yes. MEMORY - SCORE: 6-RONEN SIGNATURE PANEL: The following modified sections: Eating - Score, Grooming - Score, Bathing - Score, Dressing - Upper Body - Score, Dressing - Lower Body - Score, Toileting - Score, Bladder Management - Score, Bowel Man agement - Score, Transfers: Bed, Chair, Wheelchair - Score, Transfers: Toilet - Score, Transfers: Thelma wer - Score, Transfers: Tub - Score, Locomotion: Walk - Score, Locomotion: Wheelchair - Score, Compre hension - Score, Expression - Score, Social Interaction - Score, Problem Solving - Score, Memory - Sc ore were [electronically] signed by Dmeetris Klein on Sat Jun 22 2018 09:03:07 GMT-0500 (Central Daylight Time)
--- NOTE | 2018-06-22 10:00 | FAST ---
ENCOUNTER DATE AND TIME: 06/18/2018 08:00 (CDT) NAME SARI PERES DATE OF : 1940 DATE OF ADMISSION: 06/17/2018 20:40 (CDT) PHONE: AGE: 77 SSN# [id number] GENDER: Female ENCOUNTER PHYSICIAN: Dr. Huan Pepe M.D. ADMISSION DIAGNOSIS: - Medically Complex Conditions 17 - Other Medically Complex Conditions (17.9) Chronic Kidney Disease. EATING: EATING - STEP 1: Does the patient require the assistance of a person or device, or need extra time when eating? No. EATING - SCORE: 7-IND GROOMING: Comb/brush hair Oral care Wash, rinse, and dry face Wash, rinse, and dry hands GROOMING - STEP 1: Does the patient require the assistance of a person or device, or need extra time when grooming? No. GROOMING - SCORE: 7-IND BATHING: Abdomen Buttocks Chest Left arm Left lower leg and foot Left upper leg Perineal area Right arm Right lower leg and foot Right upper leg BATHING - STEP 1: Does the patient require the assistance of a person or device, or need extra time when bathing? Yes. BATHING - STEP 2: Does the patient require the assistance of a helper? Yes. BATHING - STEP 3: How much assistance does the patient require from the helper? More than just incidental help BATHING - STEP 4: What percent of the body parts did the patient bathe WITHOUT the helper? Less than half of the body p arts BATHING - SCORE: 2-MAX DRESSING - UPPER BODY: Patient is not dressing in public clothing ARTICLES SCORE Total number of steps: 0 DRESSING - UPPER BODY - SCORE: 0-UNK DRESSING - LOWER BODY: Sock - Left foot (one step) Sock - Right foot (one step) ARTICLES SCORE Total number of steps: 2 DRESSING - LOWER BODY - STEP 1: Does the patient require help from a person or device, or need extra time when dressing below the [address] st? Yes. DRESSING - LOWER BODY - STEP 2: Does the patient require the assistance of a helper? Yes. DRESSING - LOWER BODY - STEP 3: Does the helper touch the patient while dressing? Yes. DRESSING - LOWER BODY - STEP 4: How many of the total steps does the patient complete on his/her own? 0 DRESSING - LOWER BODY - STEP 5: Does patient require total assistance for dressing below the waist such as the helper holding clothin g and performing basically all the activities? Yes. DRESSING - LOWER BODY - SCORE: 1-DEP TOILETING: Activity did not occur on this shift TOILETING - SCORE: 0-UNK BLADDER MANAGEMENT: Activity did not occur on this shift BLADDER MANAGEMENT - SCORE: 7-IND BOWEL MANAGEMENT: Activity did not occur on this shift BOWEL MANAGEMENT - SCORE: 7-IND TRANSFERS: BED, CHAIR, WHEELCHAIR: Activity did not occur on this shift TRANSFERS: BED, CHAIR, WHEELCHAIR - SCORE: 0-UNK TRANSFERS: TOILET: Activity did not occur on this shift TRANSFERS: TOILET - SCORE: 0-UNK TRANSFERS: SHOWER: TRANSFERS: SHOWER - STEP 1: Does the patient require the assistance of a person or device, or need extra time with shower transfe rs? Yes. TRANSFERS: SHOWER - STEP 2: Does the patient require the assistance of a helper? Yes. TRANSFERS: SHOWER - STEP 3: How much assistance does the patient require from the helper? More than incidental help TRANSFERS: SHOWER - STEP 4: How much more help does the patient require from the helper? Lifting the patient up AND down from the wheelchair onto the shower chair TRANSFERS: SHOWER - SCORE: 2-MAX TRANSFERS: TUB: Activity did not occur on this shift TRANSFERS: TUB - SCORE: 0-UNK LOCOMOTION: WALK: Activity did not occur on this shift LOCOMOTION: WALK - SCORE: 0-UNK LOCOMOTION: WHEELCHAIR: Activity did not occur on this shift LOCOMOTION: WHEELCHAIR - SCORE: 0-UNK LOCOMOTION: STAIRS: Activity did not occur on this shift LOCOMOTION: STAIRS - SCORE: 0-UNK COMPREHENSION: COMPREHENSION: TYPE: Both COMPREHENSION - STEP 1: Does the patient require help from a person or device, or need extra time to understand complex and a bstract ideas (such as current events, finances, discharge planning, medical issues, relationships, e tc)? Yes. COMPREHENSION - STEP 2: Does the patient require help to understand questions or statements about basic needs or ideas (such as hunger, thirst, sleep, safety, daily schedule, room location, or discomfort) half or more of the t lizeth? No. COMPREHENSION - STEP 3: How often does the patient need help to understand directions and conversation about basic needs? Les s than 10% of the time COMPREHENSION - SCORE: 5-SUP EXPRESSION EXPRESSION: TYPE: Both EXPRESSION - STEP 1: Does the patient require help from a person or device, or need extra time expressing complex and abst ract ideas (such as current events, finances, discharge planning, medical issues, relationships, etc) ? Yes. EXPRESSION - STEP 2: Does the patient require help to express basic necessities or ideas (such as hunger, thirst, sleep, s afety, daily schedule, room location, or discomfort) half or more of the time? No. EXPRESSION - STEP 3: How often does the patient need help to express directions and conversation about basic needs? Less t anne 10% of the time EXPRESSION - SCORE: 5-SUP SOCIAL INTERACTION: SOCIAL INTERACTION - STEP 1: Does the patient require a helper to interact with others in social and therapeutic situations? No. SOCIAL INTERACTION - STEP 2: Does the patient need extra time in social situations, OR does s/he interact with staff, other patien ts, and family members ONLY in structured environments, OR does s/he require medication for social in teraction? Yes, patient needs extra time SOCIAL INTERACTION - SCORE: 6-RONEN PROBLEM SOLVING: PROBLEM SOLVING - STEP 1: Does the patient need help from a person or device, or need extra time to solve complex problems such as managing a checking account or confronting interpersonal problems? Yes. PROBLEM SOLVING - STEP 2: Does the patient solve basic routine problems half or more of the time? Yes. PROBLEM SOLVING - STEP 3: How often does the patient need help to solve basic routine problems? 10%-24% of the time PROBLEM SOLVING - SCORE: 4-MIN MEMORY: MEMORY - STEP 1: Does the patient need help from a person or device, or need extra time to remember frequently encount ered people, daily routines, and executing requests? Yes. MEMORY - STEP 2: How often does the patient need help to remember frequently encountered people, daily routines, and e xecuting requests? 25% - 49% of the time MEMORY - SCORE: 3-MOD SIGNATURE PANEL: The following modified sections: Eating - Score, Grooming - Score, Bathing - Score, Dressing - Upper Body - Score, Dressing - Lower Body - Score, Toileting - Score, Transfers: Bed, Chair, Wheelchair - S core, Transfers: Toilet - Score, Transfers: Tub - Score, Transfers: Shower - Score, Comprehension - S core, Expression - Score, Social Interaction - Score, Problem Solving - Score, Memory - Score were [e lectronically] signed by Abbie Mcmahan OT on SunJun 22 2018 09:59:53 T-0500 (Central Daylight T lizeth)
[2018-06-22] MEDS ORDERED: METOPROLOL XL 25 MG TAB PO ONE (20:00)
[2018-06-22] MEDS: DOCUSATE NA/SENNA CONC 1 TAB PO PRN (20:37)
[2018-06-22] MEDS: INSULIN DEGLUDEC SQ SCH (20:37)
[2018-06-22] MEDS: ATORVASTATIN 40 MG TAB PO SCH (20:41)
--- NOTE | 2018-06-23 01:20 | FAST ---
SHIFT START DATE/TIME: 06/22/2018 19:00 (CDT) SHIFT END DATE/TIME: 06/23/2018 07:00 (CDT) NAME SARI PERES DATE OF : 1940 DATE OF ADMISSION: 06/17/2018 20:40 (CDT) PHONE: AGE: 77 SSN# [id number] GENDER: Female ENCOUNTER PHYSICIAN: Dr. Huan Pepe M.D. ADMISSION DIAGNOSIS: - Medically Complex Conditions 17 - Other Medically Complex Conditions (17.9) Chronic Kidney Disease. EATING: Activity did not occur on this shift EATING - SCORE: 0-UNK GROOMING: Activity did not occur on this shift GROOMING - SCORE: 0-UNK BATHING: Activity did not occur on this shift BATHING - SCORE: 0-UNK DRESSING - UPPER BODY: Patient is not dressing in public clothing ARTICLES SCORE Total number of steps: 0 DRESSING - UPPER BODY - SCORE: 0-UNK DRESSING - LOWER BODY: Patient is not dressing in public clothing ARTICLES SCORE Total number of steps: 0 DRESSING - LOWER BODY - SCORE: 0-UNK TOILETING: TOILETING - STEP 1: Does the patient require the assistance of a person or device, or need extra time with toileting? Yes . TOILETING - STEP 2: Does the patient require the assistance of a helper? Yes. TOILETING - STEP 3: How much assistance does the patient require from the helper? Hands-on assistance from the helper TOILETING - STEP 4: Of the 3 tasks: 1) Adjusting clothing prior to use, 2) Cleansing of perineal area, 3) Adjusting clot julian after use; How many tasks does the patient perform WITHOUT assistance of the helper? No tasks; h chao performs all three tasks TOILETING - SCORE: 1-DEP BLADDER MANAGEMENT: BLADDER MANAGEMENT - STEP 1: Does the patient control the bladder completely and intentionally without equipment or devices or med ications, and is always continent? No. BLADDER MANAGEMENT - STEP 2: Does the patient require the assistance of a helper? Yes. BLADDER MANAGEMENT - STEP 3: How much assistance does the patient require from the helper? Patient requires contact assistance fro m the helper BLADDER MANAGEMENT - STEP 4: How much contact assistance does the patient require from the helper? Patient requires moderate elizabeth tance, and performs 50% to 75% of bladder management tasks - [place] positions AND holds urinal or bed green BLADDER MANAGEMENT - SCORE: 3-MOD BOWEL MANAGEMENT: Activity did not occur on this shift BOWEL MANAGEMENT - SCORE: 7-IND TRANSFERS: BED, CHAIR, WHEELCHAIR: TRANSFERS: BED, CHAIR, WHEELCHAIR - STEP 1: Does the patient require assistance of a person or device, or need extra time with bed, chair, or whe elchair transfers? Yes. TRANSFERS: BED, CHAIR, WHEELCHAIR - STEP 2: Does the patient require the assistance of a helper? Yes. TRANSFERS: BED, CHAIR, WHEELCHAIR - STEP 3: How much assistance does the patient require from the helper? Steadying/guiding assistance TRANSFERS: BED, CHAIR, WHEELCHAIR - SCORE: 4-MIN TRANSFERS: TOILET: TRANSFERS: TOILET - STEP 1: Does the patient require the assistance of a person or device, or need extra time with toilet transfe rs? Yes. TRANSFERS: TOILET - STEP 2: Does the patient require the assistance of a helper? Yes. TRANSFERS: TOILET - STEP 3: How much assistance does the patient require from the helper? Patient performs half or more of the tr ansferring tasks TRANSFERS: TOILET - STEP 4: Does the patient need only incidental help such as contact guard or steadying during toilet transfer? Yes. TRANSFERS: TOILET - SCORE: 4-MIN TRANSFERS: SHOWER: Activity did not occur on this shift TRANSFERS: SHOWER - SCORE: 0-UNK TRANSFERS: TUB: Activity did not occur on this shift TRANSFERS: TUB - SCORE: 0-UNK LOCOMOTION: WALK: Activity did not occur on this shift LOCOMOTION: WALK - SCORE: 0-UNK LOCOMOTION: WHEELCHAIR: Activity did not occur on this shift LOCOMOTION: WHEELCHAIR - SCORE: 0-UNK COMPREHENSION: COMPREHENSION: TYPE: Both COMPREHENSION - STEP 1: Does the patient require help from a person or device, or need extra time to understand complex and a bstract ideas (such as current events, finances, discharge planning, medical issues, relationships, e tc)? No. COMPREHENSION - STEP 2: Does the patient need extra time, require an assistive device (such as glasses for visual comprehensi on or a hearing aid for auditory comprehension) or does s/he have mild difficulty understanding compl ex and abstract information? No. COMPREHENSION - SCORE: 7-IND EXPRESSION EXPRESSION: TYPE: Both EXPRESSION - STEP 1: Does the patient require help from a person or device, or need extra time expressing complex and abst ract ideas (such as current events, finances, discharge planning, medical issues, relationships, etc) ? No. EXPRESSION - STEP 2: Does the patient need extra time, require an assistive device (such as augmentive communication syste m or a communication board), OR does s/he have mild difficulty expressing complex and abstract ideas (including mild dysarthria or mild word-find problems)? No. EXPRESSION - SCORE: 7-IND SOCIAL INTERACTION: SOCIAL INTERACTION - STEP 1: Does the patient require a helper to interact with others in social and therapeutic situations? No. SOCIAL INTERACTION - STEP 2: Does the patient need extra time in social situations, OR does s/he interact with staff, other patien ts, and family members ONLY in structured environments, OR does s/he require medication for social in teraction? No. SOCIAL INTERACTION - SCORE: 7-IND PROBLEM SOLVING: PROBLEM SOLVING - STEP 1: Does the patient need help from a person or device, or need extra time to solve complex problems such as managing a checking account or confronting interpersonal problems? No. PROBLEM SOLVING - STEP 2: Does the patient require extra time to make decisions or solve problems, OR does s/he have slight dif ficulty reading, initiating, or self-correcting in unfamiliar situations? No. PROBLEM SOLVING - SCORE: 7-IND MEMORY: MEMORY - STEP 1: Does the patient need help from a person or device, or need extra time to remember frequently encount ered people, daily routines, and executing requests? No. MEMORY - STEP 2: Does the patient have slight difficulty recognizing frequently encountered people, daily routines, or executing requests without the need for repetition or using self-initiated or environmental cues to remember? No. MEMORY - SCORE: 7-IND SIGNATURE PANEL: The following modified sections: Eating - Score, Grooming - Score, Bathing - Score, Dressing - Upper Body - Score, Dressing - Lower Body - Score, Toileting - Score, Bladder Management - Score, Bowel Man agement - Score, Transfers: Bed, Chair, Wheelchair - Score, Transfers: Toilet - Score, Transfers: Thelma wer - Score, Transfers: Tub - Score, Locomotion: Walk - Score, Locomotion: Wheelchair - Score, Compre hension - Score, Expression - Score, Social Interaction - Score, Problem Solving - Score, Memory - Sc ore were [electronically] signed by Sheryl Randolph CNA on SunJun 23 2018 01:19:34 [facility]-0500 ([facility] ylight Time)
[2018-06-23 06:53] LABS: Protime INR 3.76
[2018-06-23] MEDS: PANTOPRAZOLE 40MG TABLET PO SCH (07:02)
[2018-06-23] MEDS: NYSTATIN PWDR 100000 UNIT/GM TOP SCH ×2 (07:02→19:44)
[2018-06-23] MEDS: INSULIN -REGULAR HUMAN 50 UNIT/0.5 ML ML SQ SCH ×4 (07:30→21:26)
[2018-06-23] MEDS: METOPROLOL XL 50 MG TAB PO SCH (08:00)
[2018-06-23] MEDS: FERROUS SULFATE 325 MG TAB PO SCH ×3 (08:27→20:41)
[2018-06-23] MEDS: ASPIRIN 81 MG CHEWABLE TABLET PO SCH (08:28)
[2018-06-23] MEDS: CITALOPRAM 10 MG TABLET PO SCH (08:28)
[2018-06-23] MEDS: ANASTROZOLE 1 MG TAB PO SCH (08:29)
[2018-06-23] MEDS: CHLORTHALIDONE 25 MG TAB PO SCH (08:29)
[2018-06-23] MEDS: RAMIPRIL 2.5 MG CAP PO SCH (08:29)
[2018-06-23] MEDS: CEPHALEXIN 500 MG CAP PO SCH ×2 (08:33→19:44)
[2018-06-23] MEDS: WARFARIN SODIUM 2 MG TAB PO SCH (10:19)
--- NOTE | 2018-06-23 11:05 | FAST ---
SHIFT START DATE/TIME: 06/23/2018 07:00 (CDT) SHIFT END DATE/TIME: 06/23/2018 19:00 (CDT) NAME SARI PERES DATE OF : 1940 DATE OF ADMISSION: 06/17/2018 20:40 (CDT) PHONE: AGE: 77 SSN# [id number] GENDER: Female ENCOUNTER PHYSICIAN: Dr. Huan Pepe M.D. ADMISSION DIAGNOSIS: - Medically Complex Conditions 17 - Other Medically Complex Conditions (17.9) Chronic Kidney Disease. EATING: EATING - STEP 1: Does the patient require the assistance of a person or device, or need extra time when eating? Yes. EATING - STEP 2: Does the patient require the assistance of a helper? Yes. EATING - STEP 3: Does the patient perform half or more of the eating tasks? Yes. EATING - STEP 4: Does the patient need only supervision, cuing, coaxing OR help to apply an orthosis OR help to cut fo od, open containers, pour liquids, or butter bread? Yes. EATING - SCORE: 5-SUP GROOMING: Comb/brush hair Oral care Wash, rinse, and dry face Wash, rinse, and dry hands GROOMING - STEP 1: Does the patient require the assistance of a person or device, or need extra time when grooming? Yes. GROOMING - STEP 2: Does the patient require the assistance of a helper? No. The patient only requires an assistive devic e, OR takes more than reasonable time to groom, OR there is a concern for safety as the patient groom s GROOMING - SCORE: 6-RONEN BATHING: Activity did not occur on this shift BATHING - SCORE: 0-UNK DRESSING - UPPER BODY: Activity did not occur on this shift ARTICLES SCORE Total number of steps: 0 DRESSING - UPPER BODY - SCORE: 0-UNK DRESSING - LOWER BODY: Activity did not occur on this shift ARTICLES SCORE Total number of steps: 0 DRESSING - LOWER BODY - SCORE: 0-UNK TOILETING: TOILETING - STEP 1: Does the patient require the assistance of a person or device, or need extra time with toileting? Yes . TOILETING - STEP 2: Does the patient require the assistance of a helper? Yes. TOILETING - STEP 3: How much assistance does the patient require from the helper? Hands-on assistance from the helper TOILETING - STEP 4: Of the 3 tasks: 1) Adjusting clothing prior to use, 2) Cleansing of perineal area, 3) Adjusting clot julian after use; How many tasks does the patient perform WITHOUT assistance of the helper? Three tasks with steadying assistance from the helper TOILETING - SCORE: 4-MIN BLADDER MANAGEMENT: BLADDER MANAGEMENT - STEP 1: Does the patient control the bladder completely and intentionally without equipment or devices or med ications, and is always continent? No. BLADDER MANAGEMENT - STEP 2: Does the patient require the assistance of a helper? No, patient requires and independently uses an a ssistive device, such as a urinal, bedpan, bedside commode, catheter, absorbent pad, or collecting de vice BLADDER MANAGEMENT - SCORE: 6-RONEN BOWEL MANAGEMENT: Activity did not occur on this shift BOWEL MANAGEMENT - SCORE: 7-IND TRANSFERS: BED, CHAIR, WHEELCHAIR: TRANSFERS: BED, CHAIR, WHEELCHAIR - STEP 1: Does the patient require assistance of a person or device, or need extra time with bed, chair, or whe elchair transfers? Yes. TRANSFERS: BED, CHAIR, WHEELCHAIR - STEP 2: Does the patient require the assistance of a helper? Yes. TRANSFERS: BED, CHAIR, WHEELCHAIR - STEP 3: How much assistance does the patient require from the helper? Steadying/guiding assistance TRANSFERS: BED, CHAIR, WHEELCHAIR - SCORE: 4-MIN TRANSFERS: TOILET: TRANSFERS: TOILET - STEP 1: Does the patient require the assistance of a person or device, or need extra time with toilet transfe rs? Yes. TRANSFERS: TOILET - STEP 2: Does the patient require the assistance of a helper? Yes. TRANSFERS: TOILET - STEP 3: How much assistance does the patient require from the helper? Patient performs half or more of the tr ansferring tasks TRANSFERS: TOILET - STEP 4: Does the patient need only incidental help such as contact guard or steadying during toilet transfer? Yes. TRANSFERS: TOILET - SCORE: 4-MIN TRANSFERS: SHOWER: Activity did not occur on this shift TRANSFERS: SHOWER - SCORE: 0-UNK TRANSFERS: TUB: Activity did not occur on this shift TRANSFERS: TUB - SCORE: 0-UNK LOCOMOTION: WALK: Activity did not occur on this shift LOCOMOTION: WALK - SCORE: 0-UNK LOCOMOTION: WHEELCHAIR: Activity did not occur on this shift LOCOMOTION: WHEELCHAIR - SCORE: 0-UNK COMPREHENSION: COMPREHENSION: TYPE: Both COMPREHENSION - STEP 1: Does the patient require help from a person or device, or need extra time to understand complex and a bstract ideas (such as current events, finances, discharge planning, medical issues, relationships, e tc)? No. COMPREHENSION - STEP 2: Does the patient need extra time, require an assistive device (such as glasses for visual comprehensi on or a hearing aid for auditory comprehension) or does s/he have mild difficulty understanding compl ex and abstract information? Yes. COMPREHENSION - SCORE: 6-RONEN EXPRESSION EXPRESSION: TYPE: Both EXPRESSION - STEP 1: Does the patient require help from a person or device, or need extra time expressing complex and abst ract ideas (such as current events, finances, discharge planning, medical issues, relationships, etc) ? No. EXPRESSION - STEP 2: Does the patient need extra time, require an assistive device (such as augmentive communication syste m or a communication board), OR does s/he have mild difficulty expressing complex and abstract ideas (including mild dysarthria or mild word-find problems)? Yes. EXPRESSION - SCORE: 6-RONEN SOCIAL INTERACTION: SOCIAL INTERACTION - STEP 1: Does the patient require a helper to interact with others in social and therapeutic situations? Yes. SOCIAL INTERACTION - STEP 2: Does the patient interact appropriately half or more of the time? Yes. SOCIAL INTERACTION - STEP 3: How often does the patient need help to interact appropriately? Less than 10% of the time SOCIAL INTERACTION - SCORE: 5-SUP PROBLEM SOLVING: PROBLEM SOLVING - STEP 1: Does the patient need help from a person or device, or need extra time to solve complex problems such as managing a checking account or confronting interpersonal problems? Yes. PROBLEM SOLVING - STEP 2: Does the patient solve basic routine problems half or more of the time? Yes. PROBLEM SOLVING - STEP 3: How often does the patient need help to solve basic routine problems? Less than 10% of the time PROBLEM SOLVING - SCORE: 5-SUP MEMORY: MEMORY - STEP 1: Does the patient need help from a person or device, or need extra time to remember frequently encount ered people, daily routines, and executing requests? Yes. MEMORY - STEP 2: How often does the patient need help to remember frequently encountered people, daily routines, and e xecuting requests? Less than 10% of the time MEMORY - SCORE: 5-SUP SIGNATURE PANEL: The following modified sections: Eating - Score, Grooming - Score, Bathing - Score, Dressing - Upper Body - Score, Dressing - Lower Body - Score, Toileting - Score, Bladder Management - Score, Bowel Man agement - Score, Transfers: Bed, Chair, Wheelchair - Score, Transfers: Toilet - Score, Transfers: Thelma wer - Score, Transfers: Tub - Score, Locomotion: Walk - Score, Locomotion: Wheelchair - Score, Compre hension - Score, Expression - Score, Social Interaction - Score, Problem Solving - Score, Memory - Sc ore were [electronically] signed by Demetris Klein on SunJun 23 2018 11:04:09 GMT-0500 (Central Daylight Time)
[2018-06-23] MEDS: ATORVASTATIN 40 MG TAB PO SCH (20:41)
[2018-06-23] MEDS: INSULIN DEGLUDEC SQ SCH (20:42)
[2018-06-24] MEDS: METOPROLOL XL 50 MG TAB PO SCH (05:00)
[2018-06-24 06:09] LABS: Protime INR 3.04
[2018-06-24] MEDS: PANTOPRAZOLE 40MG TABLET PO SCH (07:18)
[2018-06-24] MEDS: INSULIN -REGULAR HUMAN 50 UNIT/0.5 ML ML SQ SCH ×4 (07:30→21:25)
[2018-06-24] MEDS: ASPIRIN 81 MG CHEWABLE TABLET PO SCH (07:51)
[2018-06-24] MEDS: NYSTATIN PWDR 100000 UNIT/GM TOP SCH ×2 (07:51→20:18)
[2018-06-24] MEDS: RAMIPRIL 2.5 MG CAP PO SCH (07:52)
[2018-06-24] MEDS: CITALOPRAM 10 MG TABLET PO SCH (07:52)
[2018-06-24] MEDS: CHLORTHALIDONE 25 MG TAB PO SCH (07:52)
[2018-06-24] MEDS: CEPHALEXIN 500 MG CAP PO SCH ×2 (07:53→20:18)
[2018-06-24] MEDS: ANASTROZOLE 1 MG TAB PO SCH (07:53)
[2018-06-24] MEDS: FERROUS SULFATE 325 MG TAB PO SCH ×3 (07:54→20:18)
[2018-06-24] MEDS: ACETAMINOPHEN 500 MG TAB PO PRN (11:11)
--- NOTE | 2018-06-24 13:43 | FAST ---
SHIFT START DATE/TIME: 06/24/2018 07:00 (CDT) SHIFT END DATE/TIME: 06/24/2018 19:00 (CDT) NAME SARI PERES DATE OF : 1940 DATE OF ADMISSION: 06/17/2018 20:40 (CDT) PHONE: AGE: 77 SSN# [id number] GENDER: Female ENCOUNTER PHYSICIAN: Dr. Huan Pepe M.D. ADMISSION DIAGNOSIS: - Medically Complex Conditions 17 - Other Medically Complex Conditions (17.9) Chronic Kidney Disease. EATING: EATING - STEP 1: Does the patient require the assistance of a person or device, or need extra time when eating? Yes. EATING - STEP 2: Does the patient require the assistance of a helper? Yes. EATING - STEP 3: Does the patient perform half or more of the eating tasks? Yes. EATING - STEP 4: Does the patient need only supervision, cuing, coaxing OR help to apply an orthosis OR help to cut fo od, open containers, pour liquids, or butter bread? Yes. EATING - SCORE: 5-SUP GROOMING: Comb/brush hair Wash, rinse, and dry face Wash, rinse, and dry hands GROOMING - STEP 1: Does the patient require the assistance of a person or device, or need extra time when grooming? Yes. GROOMING - STEP 2: Does the patient require the assistance of a helper? No. The patient only requires an assistive devic e, OR takes more than reasonable time to groom, OR there is a concern for safety as the patient groom s GROOMING - SCORE: 6-RONEN BATHING: Activity did not occur on this shift BATHING - SCORE: 0-UNK DRESSING - UPPER BODY: T-shirt/pullover shirt (four steps) ARTICLES SCORE Total number of steps: 4 DRESSING - UPPER BODY - STEP 1: Does the patient require help from a person or device, or need extra time when dressing above the [address]? Yes. DRESSING - UPPER BODY - STEP 2: Does the patient require the assistance of a helper? Yes. DRESSING - UPPER BODY - STEP 3: Does the helper touch the patient while dressing? No. DRESSING - UPPER BODY - SCORE: 5-SUP DRESSING - LOWER BODY: Elastic waist pants (three steps) Sock - Left foot (one step) Sock - Right foot (one step) Underwear (three steps) ARTICLES SCORE Total number of steps: 8 DRESSING - LOWER BODY - STEP 1: Does the patient require help from a person or device, or need extra time when dressing below the [address]? Yes. DRESSING - LOWER BODY - STEP 2: Does the patient require the assistance of a helper? Yes. DRESSING - LOWER BODY - STEP 3: Does the helper touch the patient while dressing? Yes. DRESSING - LOWER BODY - STEP 4: How many of the total steps does the patient complete on his/her own? 0 DRESSING - LOWER BODY - STEP 5: Does patient require total assistance for dressing below the waist such as the helper holding clothin g and performing basically all the activities? Yes. DRESSING - LOWER BODY - SCORE: 1-DEP TOILETING: TOILETING - STEP 1: Does the patient require the assistance of a person or device, or need extra time with toileting? Yes . TOILETING - STEP 2: Does the patient require the assistance of a helper? Yes. TOILETING - STEP 3: How much assistance does the patient require from the helper? Hands-on assistance from the helper TOILETING - STEP 4: Of the 3 tasks: 1) Adjusting clothing prior to use, 2) Cleansing of perineal area, 3) Adjusting clot julian after use; How many tasks does the patient perform WITHOUT assistance of the helper? Three tasks with steadying assistance from the helper TOILETING - SCORE: 4-MIN BLADDER MANAGEMENT: BLADDER MANAGEMENT - STEP 1: Does the patient control the bladder completely and intentionally without equipment or devices or med ications, and is always continent? No. BLADDER MANAGEMENT - STEP 2: Does the patient require the assistance of a helper? No, patient only requires extra time BLADDER MANAGEMENT - SCORE: 6-RONEN BLADDER MANAGEMENT - FREQUENCY OF ACCIDENTS: BLADDER MANAGEMENT(FA) - STEP 1: How many accidents has the patient had during the current shift? 0 BOWEL MANAGEMENT: BOWEL MANAGEMENT - STEP 1: Does the patient control bowels completely and intentionally without equipment devices or medications AND is always continent? No. BOWEL MANAGEMENT - STEP 2: Does the patient require the assistance of a helper? No, patient requires medication for control such as stool softeners, suppositories, laxatives, enemas, or OTC medications BOWEL MANAGEMENT - SCORE: 6-RONEN BOWEL MANAGEMENT - FREQUENCY OF ACCIDENTS: BOWEL MANAGEMENT(FA) - STEP 1: How many accidents has the patient had during the current shift? 0 TRANSFERS: BED, CHAIR, WHEELCHAIR: TRANSFERS: BED, CHAIR, WHEELCHAIR - STEP 1: Does the patient require assistance of a person or device, or need extra time with bed, chair, or whe elchair transfers? Yes. TRANSFERS: BED, CHAIR, WHEELCHAIR - STEP 2: Does the patient require the assistance of a helper? Yes. TRANSFERS: BED, CHAIR, WHEELCHAIR - STEP 3: How much assistance does the patient require from the helper? Steadying/guiding assistance TRANSFERS: BED, CHAIR, WHEELCHAIR - SCORE: 4-MIN TRANSFERS: TOILET: TRANSFERS: TOILET - STEP 1: Does the patient require the assistance of a person or device, or need extra time with toilet transfe rs? Yes. TRANSFERS: TOILET - STEP 2: Does the patient require the assistance of a helper? Yes. TRANSFERS: TOILET - STEP 3: How much assistance does the patient require from the helper? Patient performs half or more of the tr ansferring tasks TRANSFERS: TOILET - STEP 4: Does the patient need only incidental help such as contact guard or steadying during toilet transfer? Yes. TRANSFERS: TOILET - SCORE: 4-MIN TRANSFERS: SHOWER: Activity did not occur on this shift TRANSFERS: SHOWER - SCORE: 0-UNK TRANSFERS: TUB: Activity did not occur on this shift TRANSFERS: TUB - SCORE: 0-UNK LOCOMOTION: WALK: Activity did not occur on this shift LOCOMOTION: WALK - SCORE: 0-UNK LOCOMOTION: WHEELCHAIR: Activity did not occur on this shift LOCOMOTION: WHEELCHAIR - SCORE: 0-UNK COMPREHENSION: COMPREHENSION: TYPE: Both COMPREHENSION - STEP 1: Does the patient require help from a person or device, or need extra time to understand complex and a bstract ideas (such as current events, finances, discharge planning, medical issues, relationships, e tc)? No. COMPREHENSION - STEP 2: Does the patient need extra time, require an assistive device (such as glasses for visual comprehensi on or a hearing aid for auditory comprehension) or does s/he have mild difficulty understanding compl ex and abstract information? Yes. COMPREHENSION - SCORE: 6-RONEN EXPRESSION EXPRESSION: TYPE: Both EXPRESSION - STEP 1: Does the patient require help from a person or device, or need extra time expressing complex and abst ract ideas (such as current events, finances, discharge planning, medical issues, relationships, etc) ? No. EXPRESSION - STEP 2: Does the patient need extra time, require an assistive device (such as augmentive communication syste m or a communication board), OR does s/he have mild difficulty expressing complex and abstract ideas (including mild dysarthria or mild word-find problems)? Yes. EXPRESSION - SCORE: 6-RONEN SOCIAL INTERACTION: SOCIAL INTERACTION - STEP 1: Does the patient require a helper to interact with others in social and therapeutic situations? Yes. SOCIAL INTERACTION - STEP 2: Does the patient interact appropriately half or more of the time? Yes. SOCIAL INTERACTION - STEP 3: How often does the patient need help to interact appropriately? Less than 10% of the time SOCIAL INTERACTION - SCORE: 5-SUP PROBLEM SOLVING: PROBLEM SOLVING - STEP 1: Does the patient need help from a person or device, or need extra time to solve complex problems such as managing a checking account or confronting interpersonal problems? Yes. PROBLEM SOLVING - STEP 2: Does the patient solve basic routine problems half or more of the time? Yes. PROBLEM SOLVING - STEP 3: How often does the patient need help to solve basic routine problems? Less than 10% of the time PROBLEM SOLVING - SCORE: 5-SUP MEMORY: MEMORY - STEP 1: Does the patient need help from a person or device, or need extra time to remember frequently encount ered people, daily routines, and executing requests? Yes. MEMORY - STEP 2: How often does the patient need help to remember frequently encountered people, daily routines, and e xecuting requests? Less than 10% of the time MEMORY - SCORE: 5-SUP SIGNATURE PANEL: The following modified sections: Eating - Score, Grooming - Score, Bathing - Score, Dressing - Upper Body - Score, Dressing - Lower Body - Score, Toileting - Score, Bladder Management - Score, Bowel Man agement - Score, Transfers: Bed, Chair, Wheelchair - Score, Transfers: Toilet - Score, Transfers: Thelma wer - Score, Transfers: Tub - Score, Locomotion: Walk - Score, Locomotion: Wheelchair - Score, Compre hension - Score, Expression - Score, Social Interaction - Score, Problem Solving - Score, Memory - Sc ore were [electronically] signed by Aneta [email or web address] on SunJun 24 2018 13:41:53 T-0500 ([place] Day[place])
--- NOTE | 2018-06-24 13:50 | FAST ---
ENCOUNTER DATE AND TIME: 06/24/2018 08:00 (CDT) NAME SARI PERES DATE OF : 1940 DATE OF ADMISSION: 06/17/2018 20:40 (CDT) PHONE: AGE: 77 SSN# [id number] GENDER: Female ENCOUNTER PHYSICIAN: Dr. Huan Pepe M.D. ADMISSION DIAGNOSIS: - Medically Complex Conditions 17 - Other Medically Complex Conditions (17.9) Chronic Kidney Disease. EATING: Activity did not occur on this shift EATING - SCORE: 0-UNK GROOMING: Comb/brush hair Wash, rinse, and dry face Wash, rinse, and dry hands GROOMING - STEP 1: Does the patient require the assistance of a person or device, or need extra time when grooming? No. GROOMING - SCORE: 7-IND BATHING: Abdomen Buttocks Chest Left arm Left lower leg and foot Left upper leg Perineal area Right arm Right lower leg and foot Right upper leg BATHING - STEP 1: Does the patient require the assistance of a person or device, or need extra time when bathing? Yes. BATHING - STEP 2: Does the patient require the assistance of a helper? Yes. BATHING - STEP 3: How much assistance does the patient require from the helper? More than just incidental help BATHING - STEP 4: What percent of the body parts did the patient bathe WITHOUT the helper? Half or more of the body par ts BATHING - SCORE: 3-MOD DRESSING - UPPER BODY: Bra (three steps) T-shirt/pullover shirt (four steps) ARTICLES SCORE Total number of steps: 7 DRESSING - UPPER BODY - STEP 1: Does the patient require help from a person or device, or need extra time when dressing above the [address]? Yes. DRESSING - UPPER BODY - STEP 2: Does the patient require the assistance of a helper? Yes. DRESSING - UPPER BODY - STEP 3: Does the helper touch the patient while dressing? Yes. DRESSING - UPPER BODY - STEP 4: How many of the total steps does the patient complete on his/her own? 6 DRESSING - UPPER BODY - SCORE: 4-MIN DRESSING - LOWER BODY: Elastic waist pants (three steps) Sock - Left foot (one step) Sock - Right foot (one step) Underwear (three steps) ARTICLES SCORE Total number of steps: 8 DRESSING - LOWER BODY - STEP 1: Does the patient require help from a person or device, or need extra time when dressing below the [address]? Yes. DRESSING - LOWER BODY - STEP 2: Does the patient require the assistance of a helper? Yes. DRESSING - LOWER BODY - STEP 3: Does the helper touch the patient while dressing? Yes. DRESSING - LOWER BODY - STEP 4: How many of the total steps does the patient complete on his/her own? 5 DRESSING - LOWER BODY - SCORE: 3-MOD TOILETING: TOILETING - STEP 1: Does the patient require the assistance of a person or device, or need extra time with toileting? Yes . TOILETING - STEP 2: Does the patient require the assistance of a helper? Yes. TOILETING - STEP 3: How much assistance does the patient require from the helper? Hands-on assistance from the helper TOILETING - STEP 4: Of the 3 tasks: 1) Adjusting clothing prior to use, 2) Cleansing of perineal area, 3) Adjusting clot julian after use; How many tasks does the patient perform WITHOUT assistance of the helper? Three tasks with steadying assistance from the helper TOILETING - SCORE: 4-MIN BLADDER MANAGEMENT: Activity did not occur on this shift BLADDER MANAGEMENT - SCORE: 7-IND BOWEL MANAGEMENT: Activity did not occur on this shift BOWEL MANAGEMENT - SCORE: 7-IND TRANSFERS: BED, CHAIR, WHEELCHAIR: TRANSFERS: BED, CHAIR, WHEELCHAIR - STEP 1: Does the patient require assistance of a person or device, or need extra time with bed, chair, or whe elchair transfers? Yes. TRANSFERS: BED, CHAIR, WHEELCHAIR - STEP 2: Does the patient require the assistance of a helper? Yes. TRANSFERS: BED, CHAIR, WHEELCHAIR - STEP 3: How much assistance does the patient require from the helper? Steadying/guiding assistance TRANSFERS: BED, CHAIR, WHEELCHAIR - SCORE: 4-MIN TRANSFERS: TOILET: TRANSFERS: TOILET - STEP 1: Does the patient require the assistance of a person or device, or need extra time with toilet transfe rs? Yes. TRANSFERS: TOILET - STEP 2: Does the patient require the assistance of a helper? Yes. TRANSFERS: TOILET - STEP 3: How much assistance does the patient require from the helper? Patient performs half or more of the tr ansferring tasks TRANSFERS: TOILET - STEP 4: Does the patient need only incidental help such as contact guard or steadying during toilet transfer? Yes. TRANSFERS: TOILET - SCORE: 4-MIN TRANSFERS: SHOWER: Activity did not occur on this shift TRANSFERS: SHOWER - SCORE: 0-UNK TRANSFERS: TUB: TRANSFERS: TUB - STEP 1: Does the patient require the assistance of a person or device, or need extra time with tub transfers? Yes. TRANSFERS: TUB - STEP 2: Does the patient require the assistance of a helper? Yes. TRANSFERS: TUB - STEP 3: How much assistance does the patient require from the helper? More than incidental help TRANSFERS: TUB - STEP 4: How much more help does the patient require from the helper? Bowler lifts BOTH legs into or out of th e tub TRANSFERS: TUB - SCORE: 3-MOD LOCOMOTION: WALK: Activity did not occur on this shift LOCOMOTION: WALK - SCORE: 0-UNK LOCOMOTION: WHEELCHAIR: Activity did not occur on this shift LOCOMOTION: WHEELCHAIR - SCORE: 0-UNK LOCOMOTION: STAIRS: Activity did not occur on this shift LOCOMOTION: STAIRS - SCORE: 0-UNK COMPREHENSION: COMPREHENSION: TYPE: Both COMPREHENSION - STEP 1: Does the patient require help from a person or device, or need extra time to understand complex and a bstract ideas (such as current events, finances, discharge planning, medical issues, relationships, e tc)? Yes. COMPREHENSION - STEP 2: Does the patient require help to understand questions or statements about basic needs or ideas (such as hunger, thirst, sleep, safety, daily schedule, room location, or discomfort) half or more of the t lizeth? No. COMPREHENSION - STEP 3: How often does the patient need help to understand directions and conversation about basic needs? 10% - 24% of the time COMPREHENSION - SCORE: 4-MIN EXPRESSION EXPRESSION: TYPE: Both EXPRESSION - STEP 1: Does the patient require help from a person or device, or need extra time expressing complex and abst ract ideas (such as current events, finances, discharge planning, medical issues, relationships, etc) ? Yes. EXPRESSION - STEP 2: Does the patient require help to express basic necessities or ideas (such as hunger, thirst, sleep, s afety, daily schedule, room location, or discomfort) half or more of the time? No. EXPRESSION - STEP 3: How often does the patient need help to express directions and conversation about basic needs? 10-24% of the time EXPRESSION - SCORE: 4-MIN SOCIAL INTERACTION: SOCIAL INTERACTION - STEP 1: Does the patient require a helper to interact with others in social and therapeutic situations? Yes. SOCIAL INTERACTION - STEP 2: Does the patient interact appropriately half or more of the time? Yes. SOCIAL INTERACTION - STEP 3: How often does the patient need help to interact appropriately? Less than 10% of the time SOCIAL INTERACTION - SCORE: 5-SUP PROBLEM SOLVING: PROBLEM SOLVING - STEP 1: Does the patient need help from a person or device, or need extra time to solve complex problems such as managing a checking account or confronting interpersonal problems? Yes. PROBLEM SOLVING - STEP 2: Does the patient solve basic routine problems half or more of the time? Yes. PROBLEM SOLVING - STEP 3: How often does the patient need help to solve basic routine problems? 25%-49% of the time PROBLEM SOLVING - SCORE: 3-MOD MEMORY: MEMORY - STEP 1: Does the patient need help from a person or device, or need extra time to remember frequently encount ered people, daily routines, and executing requests? Yes. MEMORY - STEP 2: How often does the patient need help to remember frequently encountered people, daily routines, and e xecuting requests? 25% - 49% of the time MEMORY - SCORE: 3-MOD SIGNATURE PANEL: The following modified sections: Eating - Score, Grooming - Score, Bathing - Score, Dressing - Upper Body - Score, Dressing - Lower Body - Score, Toileting - Score, Transfers: Bed, Chair, Wheelchair - S core, Transfers: Toilet - Score, Transfers: Shower - Score, Transfers: Tub - Score, Comprehension - S core, Expression - Score, Social Interaction - Score, Problem Solving - Score, Memory - Score were [e lectronically] signed by Raquel Busby OT on SunJun 24 2018 13:49:14 GMT-0500 ([facility] [place] Time)
--- NOTE | 2018-06-24 16:08 | FAST ---
ENCOUNTER DATE AND TIME: 06/24/2018 08:00 (CDT) NAME SARI PERES DATE OF : 1940 DATE OF ADMISSION: 06/17/2018 20:40 (CDT) PHONE: AGE: 77 SSN# [id number] GENDER: Female ENCOUNTER PHYSICIAN: Dr. Huan Pepe M.D. ADMISSION DIAGNOSIS: - Medically Complex Conditions 17 - Other Medically Complex Conditions (17.9) Chronic Kidney Disease. EATING: Activity did not occur on this shift EATING - SCORE: 0-UNK GROOMING: Activity did not occur on this shift GROOMING - SCORE: 0-UNK BATHING: Activity did not occur on this shift BATHING - SCORE: 0-UNK DRESSING - UPPER BODY: Activity did not occur on this shift Patient is not dressing in public clothing ARTICLES SCORE Total number of steps: 0 DRESSING - UPPER BODY - SCORE: 0-UNK DRESSING - LOWER BODY: Activity did not occur on this shift Patient is not dressing in public clothing ARTICLES SCORE Total number of steps: 0 DRESSING - LOWER BODY - SCORE: 0-UNK TOILETING: Activity did not occur on this shift TOILETING - SCORE: 0-UNK BLADDER MANAGEMENT: Activity did not occur on this shift BLADDER MANAGEMENT - SCORE: 7-IND BOWEL MANAGEMENT: Activity did not occur on this shift BOWEL MANAGEMENT - SCORE: 7-IND TRANSFERS: BED, CHAIR, WHEELCHAIR: TRANSFERS: BED, CHAIR, WHEELCHAIR - STEP 1: Does the patient require assistance of a person or device, or need extra time with bed, chair, or whe elchair transfers? Yes. TRANSFERS: BED, CHAIR, WHEELCHAIR - STEP 2: Does the patient require the assistance of a helper? Yes. TRANSFERS: BED, CHAIR, WHEELCHAIR - STEP 3: How much assistance does the patient require from the helper? Only supervision TRANSFERS: BED, CHAIR, WHEELCHAIR - SCORE: 5-SUP TRANSFERS: TOILET: Activity did not occur on this shift TRANSFERS: TOILET - SCORE: 0-UNK TRANSFERS: SHOWER: Activity did not occur on this shift TRANSFERS: SHOWER - SCORE: 0-UNK TRANSFERS: TUB: Activity did not occur on this shift TRANSFERS: TUB - SCORE: 0-UNK LOCOMOTION: WALK: LOCOMOTION: WALK - STEP 1: Does the patient need help from a person or device, or need extra time to walk 150 feet? Yes. LOCOMOTION: WALK - STEP 2: How much assistance does the patient require to walk a minimum of 150 feet? Patient walks less than 1 50 feet - but more than 50 feet - with the assistance of only one helper LOCOMOTION: WALK - SCORE: 2-MAX LOCOMOTION: WHEELCHAIR: Activity did not occur on this shift LOCOMOTION: WHEELCHAIR - SCORE: 0-UNK LOCOMOTION: STAIRS: Activity did not occur on this shift LOCOMOTION: STAIRS - SCORE: 0-UNK COMPREHENSION: COMPREHENSION - SCORE: 0-UNK EXPRESSION EXPRESSION - SCORE: 0-UNK SOCIAL INTERACTION: SOCIAL INTERACTION - SCORE: 0-UNK PROBLEM SOLVING: PROBLEM SOLVING - SCORE: 0-UNK MEMORY: MEMORY - SCORE: 0-UNK SIGNATURE PANEL: The following modified sections: Transfers: Bed, Chair, Wheelchair - Score, Transfers: Toilet - Score , Locomotion: Walk - Score, Locomotion: Wheelchair - Score, Locomotion: Stairs - Score were [electron pooja] signed by Silas Marion PT on SunJun 24 2018 16:07:20 [facility]-0500 (Central Daylight Time)
[2018-06-24] MEDS: WARFARIN SODIUM 2 MG TAB PO SCH (17:08)
--- NOTE | 2018-06-24 18:23 | R.PN ---
ENCOUNTER DATE AND TIME: 06/24/2018 18:07 (CDT) NAME SARI PERES DATE OF : 1940 DATE OF ADMISSION: 06/17/2018 20:40 (CDT) Chronic Kidney DiseaseCHIEF COMPLAINT: Chronic kidney disease with debility SUBJECTIVE: Pt denied any depression. Pt denied any Shortness of Breath. Ambulated 330' with standby assistance using a rolling walker. Hgb 10.0, WBC 7.0, Glucose 156 to 334. Restarted insulin glargine 40 units at bedtime but blood sugars still elevated.. Will increase to 43 units at bedtime and continue mild insulin sliding scale. VITAL SIGNS Temperature: 97.4 F SBP/DBP: 133/60 Pulse: 60 Resp: 16 MEDICATION ALLERGIES: quinolones ENVIRONMENTAL ALLERGIES: - Substance Allergies None Known - Other Allergies None Known NURSING: - Shower allowing shower - Lab Results blood Sugar Check ACHS PRECAUTIONS: - Weight Bearing Precaution NWB right LE ACTIVITIES OOB only with supervision THERAPIES: - Occupational Therapy Evaluate and Treat. - Physical Therapy Evaluate and Treat. PHYSICAL EXAM - Gen Alert and awake Lying in bed No apparent distress Oriented to: person, time, and place - Skin No breakdown No abnormalities - Eyes No abnormalities - ENMT No abnormalities - Neck No abnormalities - CVS RRR - Chest No abnormalities - Abd Soft - GI nondistended Deferred - No abnormalities - Ext No significant edema. Right lower extremity in knee immobilizer due to moderate right medial meniscus tear. - MSK 4+/5 weakness in right lower extremity - Neuro 4/5 strength right lower extremity. - Psych No abnormalities ASSESSMENT: Pt. is a 77 yo Right-handed female.On 06/16/2018 she was admitted to [facility] with diagnosis Chronic Kidney Disease.Her impairment category is Medically Complex Conditio ns 17 - Other Medically Complex Conditions (17.9).Pre-morbidly, Pt. was independent/mod-I in Self-Ca re, Sphincter Control, Transfers Control, Locomotion, and Communication; and she had good Sphincter C ontrol.Currently, she has deficits of Transfers Control, Locomotion, Communication, Social Cognition, Endurance, Balance, Safety Awareness, and Self-Care.Pt. is now referred to [facility] for acute in-patient rehabilitation in order to maximize patient's functional independence i n activities of daily living, strength, ROM, and mobility.- Rehab Goal Patient has realistic goal of being discharged at assistance level 6-Melvin to reside at Home with Att endant. MDM/PLAN: - Physical Therapy Gait dysfunction - to improve, our physical therapists will perform initial evaluation of pt's statu s upon admission and devise an individualized program for Gait Training, and Wheel Chair mobility Inability to transfer - to improve, our physical therapists will perform initial evaluation of pt's status upon admission and devise an individualized program for Bed mobility Need for home safety evaluation - to improve, our physical therapists will perform initial evaluatio n of pt's status upon admission and devise an individualized program for Home Evaluation Need in caregiver upon discharge - to improve, our physical therapists will perform initial evaluati on of pt's status upon admission and devise an individualized program for Caregiver Training Edema - to improve, our physical therapists will perform initial evaluation of pt's status upon admi ssion and devise an individualized program for Elevation Training, and Lymphedema Therapy New precaution - to improve, our physical therapists will perform initial evaluation of pt's status upon admission and devise an individualized program for Patient precaution education Poor balance - to improve, our physical therapists will perform initial evaluation of pt's status up on admission and devise an individualized program for Balance Training Poor endurance - to improve, our physical therapists will perform initial evaluation of pt's status upon admission and devise an individualized program for Endurance Training Weakness - to improve, our physical therapists will perform initial evaluation of pt's status upon a dmission and devise an individualized program for Aquatic Therapy, Neuromuscular Reeducation, and Str engthening Achieving independence - to improve, our physical therapists will perform initial evaluation of pt's status upon admission and devise an individualized program for Community Reintegration Activities - Occupational Therapy ADL deficits - to improve, our occupation therapists will perform initial evaluation of pt's status upon admission and devise an individualized program for Bathing, Bed mobility, Community Reintegratio n, Cooking, Dressing, Eating, Fine Motor Skills, Grooming, Homemaking, Kitchen Mobility, Laundry, Pat ient Education, Safety Awareness, Splinting - Positioning, Transfers(Toilet, Tub, Shower), and Wheel Chair Management Cognitive deficits - to improve, our occupation therapists will perform initial evaluation of pt's s tatus upon admission and devise an individualized program for Cognition - orientation Need for career development coordinator/teacher - to improve, our occupation therapists will perform initial evaluation of pt's status upon admission and devise an individualized program for Caregiver Training Weakness - to improve, our occupation therapists will perform initial evaluation of pt's status upon admission and devise an individualized program for Aquatic Therapy, Balance, Endurance, UE ROM, and UE strengthening - Diet Type Continue Regular - Diet - Liquid Texture Continue Regular - Tube Feed Continue N/A - Lab Results blood Sugar Check ACHS - Weight Bearing Precaution NWB right LE - Diet - Solid Texture Continue Regular - Shower allowing shower FUNCTIONAL STATUS: UPDATED AT WEEKLY TEAM CONFERENCE - Bladder Same accident frequency: 7-Ind - No accidents in the past 7 days - Bowel Same accident frequency: 7-Ind - No accidents in the past 7 days - Walking Same score based on distance walked: 1(<=50ft) - Wheelchair Same score based on distance traveled: 1(<=50ft) FUNCTIONAL STATUS: - Self-Care A. Eating Ind B. Grooming Ind C. Bathing Ind D. Dressing - Upper Ind E. Dressing - Lower maxA F. Toileting Dep - Sphincter Control G: Bladder control Ind H: Bowel control Ind - Transfers Control I. Bed/Chair/Wheelchair maxA J. Toilet maxA K. Tub/Shower maxA - Locomotion L. Walk/Wheelchair (B) Dep M. Stairs ADNO - Communication N. Comprehension (B) Matty O. Expression (B) Matty - Social Cognition P. Social Interaction Matty Q. Problem Solving modA R. Memory Matty - Endurance Poor - Balance Poor - Safety Awareness Poor CURRENT FUNC. DEFICITS: Transfers Control, Locomotion, Communication, Social Cognition, Endurance, Balance, Safety Awareness, and Self-Care SIGNATURE PANEL: (CDT)
[2018-06-24] MEDS: ATORVASTATIN 40 MG TAB PO SCH (20:20)
[2018-06-24] MEDS: INSULIN DEGLUDEC SQ SCH (20:23)
--- NOTE | 2018-06-25 01:21 | FAST ---
SHIFT START DATE/TIME: 06/24/2018 19:00 (CDT) SHIFT END DATE/TIME: 06/25/2018 07:00 (CDT) NAME SARI PERES DATE OF : 1940 DATE OF ADMISSION: 06/17/2018 20:40 (CDT) PHONE: AGE: 77 SSN# [id number] GENDER: Female ENCOUNTER PHYSICIAN: Dr. Huan Pepe M.D. ADMISSION DIAGNOSIS: - Medically Complex Conditions 17 - Other Medically Complex Conditions (17.9) Chronic Kidney Disease. EATING: Activity did not occur on this shift EATING - SCORE: 0-UNK GROOMING: Activity did not occur on this shift GROOMING - SCORE: 0-UNK BATHING: Activity did not occur on this shift BATHING - SCORE: 0-UNK DRESSING - UPPER BODY: Patient is not dressing in public clothing ARTICLES SCORE Total number of steps: 0 DRESSING - UPPER BODY - SCORE: 0-UNK DRESSING - LOWER BODY: Patient is not dressing in public clothing ARTICLES SCORE Total number of steps: 0 DRESSING - LOWER BODY - SCORE: 0-UNK TOILETING: TOILETING - STEP 1: Does the patient require the assistance of a person or device, or need extra time with toileting? Yes . TOILETING - STEP 2: Does the patient require the assistance of a helper? Yes. TOILETING - STEP 3: How much assistance does the patient require from the helper? Hands-on assistance from the helper TOILETING - STEP 4: Of the 3 tasks: 1) Adjusting clothing prior to use, 2) Cleansing of perineal area, 3) Adjusting clot julian after use; How many tasks does the patient perform WITHOUT assistance of the helper? No tasks; h elper performs all three tasks TOILETING - SCORE: 1-DEP BLADDER MANAGEMENT: Biddle removes incontinent device (Depends, pull ups, etc.); cleans the patient after accident / inco ntinent episode; and, applies new incontinent device. BLADDER MANAGEMENT - SCORE: 1-DEP BOWEL MANAGEMENT: Activity did not occur on this shift BOWEL MANAGEMENT - SCORE: 7-IND TRANSFERS: BED, CHAIR, WHEELCHAIR: TRANSFERS: BED, CHAIR, WHEELCHAIR - STEP 1: Does the patient require assistance of a person or device, or need extra time with bed, chair, or whe elchair transfers? Yes. TRANSFERS: BED, CHAIR, WHEELCHAIR - STEP 2: Does the patient require the assistance of a helper? Yes. TRANSFERS: BED, CHAIR, WHEELCHAIR - STEP 3: How much assistance does the patient require from the helper? Steadying/guiding assistance TRANSFERS: BED, CHAIR, WHEELCHAIR - SCORE: 4-MIN TRANSFERS: TOILET: TRANSFERS: TOILET - STEP 1: Does the patient require the assistance of a person or device, or need extra time with toilet transfe rs? Yes. TRANSFERS: TOILET - STEP 2: Does the patient require the assistance of a helper? Yes. TRANSFERS: TOILET - STEP 3: How much assistance does the patient require from the helper? Patient performs half or more of the tr ansferring tasks TRANSFERS: TOILET - STEP 4: Does the patient need only incidental help such as contact guard or steadying during toilet transfer? Yes. TRANSFERS: TOILET - SCORE: 4-MIN TRANSFERS: SHOWER: Activity did not occur on this shift TRANSFERS: SHOWER - SCORE: 0-UNK TRANSFERS: TUB: Activity did not occur on this shift TRANSFERS: TUB - SCORE: 0-UNK LOCOMOTION: WALK: Activity did not occur on this shift LOCOMOTION: WALK - SCORE: 0-UNK LOCOMOTION: WHEELCHAIR: Activity did not occur on this shift LOCOMOTION: WHEELCHAIR - SCORE: 0-UNK COMPREHENSION: COMPREHENSION: TYPE: Both COMPREHENSION - STEP 1: Does the patient require help from a person or device, or need extra time to understand complex and a bstract ideas (such as current events, finances, discharge planning, medical issues, relationships, e tc)? Yes. COMPREHENSION - STEP 2: Does the patient require help to understand questions or statements about basic needs or ideas (such as hunger, thirst, sleep, safety, daily schedule, room location, or discomfort) half or more of the t lizeth? No. COMPREHENSION - STEP 3: How often does the patient need help to understand directions and conversation about basic needs? 10% - 24% of the time COMPREHENSION - SCORE: 4-MIN EXPRESSION EXPRESSION: TYPE: Both EXPRESSION - STEP 1: Does the patient require help from a person or device, or need extra time expressing complex and abst ract ideas (such as current events, finances, discharge planning, medical issues, relationships, etc) ? No. EXPRESSION - STEP 2: Does the patient need extra time, require an assistive device (such as augmentive communication syste m or a communication board), OR does s/he have mild difficulty expressing complex and abstract ideas (including mild dysarthria or mild word-find problems)? No. EXPRESSION - SCORE: 7-IND SOCIAL INTERACTION: SOCIAL INTERACTION - STEP 1: Does the patient require a helper to interact with others in social and therapeutic situations? No. SOCIAL INTERACTION - STEP 2: Does the patient need extra time in social situations, OR does s/he interact with staff, other patien ts, and family members ONLY in structured environments, OR does s/he require medication for social in teraction? Yes, patient requires medication for social interaction SOCIAL INTERACTION - SCORE: 6-RONEN PROBLEM SOLVING: PROBLEM SOLVING - STEP 1: Does the patient need help from a person or device, or need extra time to solve complex problems such as managing a checking account or confronting interpersonal problems? Yes. PROBLEM SOLVING - STEP 2: Does the patient solve basic routine problems half or more of the time? Yes. PROBLEM SOLVING - STEP 3: How often does the patient need help to solve basic routine problems? 10%-24% of the time PROBLEM SOLVING - SCORE: 4-MIN MEMORY: MEMORY - STEP 1: Does the patient need help from a person or device, or need extra time to remember frequently encount ered people, daily routines, and executing requests? No. MEMORY - STEP 2: Does the patient have slight difficulty recognizing frequently encountered people, daily routines, or executing requests without the need for repetition or using self-initiated or environmental cues to remember? Yes. MEMORY - SCORE: 6-RONEN SIGNATURE PANEL: The following modified sections: Eating - Score, Grooming - Score, Dressing - Upper Body - Score, Maynor ssing - Lower Body - Score, Toileting - Score, Bladder Management - Score, Bowel Management - Score, Transfers: Bed, Chair, Wheelchair - Score, Transfers: Toilet - Score, Transfers: Shower - Score, Lopez sfers: Tub - Score, Locomotion: Walk - Score, Locomotion: Wheelchair - Score, Comprehension - Score, Expression - Score, Social Interaction - Score, Problem Solving - Score, Memory - Score were [electro nically] signed by Zina Flynn CNA on SunJun 25 2018 01:21:08 T-0500 (Central Daylight Time)
[2018-06-25] MEDS: METOPROLOL XL 50 MG TAB PO SCH (05:33)
[2018-06-25 06:43] LABS: Protime INR 2.2
[2018-06-25] MEDS: PANTOPRAZOLE 40MG TABLET PO SCH (06:45)
[2018-06-25] MEDS: INSULIN -REGULAR HUMAN 50 UNIT/0.5 ML ML SQ SCH ×4 (07:30→21:40)
[2018-06-25] MEDS: NYSTATIN PWDR 100000 UNIT/GM TOP SCH ×2 (08:00→19:47)
[2018-06-25] MEDS: RAMIPRIL 2.5 MG CAP PO SCH (08:19)
[2018-06-25] MEDS: CEPHALEXIN 500 MG CAP PO SCH (08:19)
[2018-06-25] MEDS: CITALOPRAM 10 MG TABLET PO SCH (08:20)
[2018-06-25] MEDS: ANASTROZOLE 1 MG TAB PO SCH (08:20)
[2018-06-25] MEDS: ASPIRIN 81 MG CHEWABLE TABLET PO SCH (08:20)
[2018-06-25] MEDS: LIDOCAINE 5% PATCH TOP SCH (08:20)
[2018-06-25] MEDS: CHLORTHALIDONE 25 MG TAB PO SCH (08:20)
[2018-06-25] MEDS: FERROUS SULFATE 325 MG TAB PO SCH ×3 (08:20→20:35)
[2018-06-25] MEDS: ACETAMINOPHEN 500 MG TAB PO PRN (08:20)
--- NOTE | 2018-06-25 11:20 | FAST ---
ENCOUNTER DATE AND TIME: 06/25/2018 08:00 (CDT) NAME SARI PERES DATE OF : 1940 DATE OF ADMISSION: 06/17/2018 20:40 (CDT) PHONE: AGE: 77 SSN# [id number] GENDER: Female ENCOUNTER PHYSICIAN: Dr. Huan Pepe M.D. ADMISSION DIAGNOSIS: - Medically Complex Conditions 17 - Other Medically Complex Conditions (17.9) Chronic Kidney Disease. EATING: Activity did not occur on this shift EATING - SCORE: 0-UNK GROOMING: Comb/brush hair Wash, rinse, and dry face Wash, rinse, and dry hands GROOMING - STEP 1: Does the patient require the assistance of a person or device, or need extra time when grooming? Yes. GROOMING - STEP 2: Does the patient require the assistance of a helper? No. The patient only requires an assistive devic e, OR takes more than reasonable time to groom, OR there is a concern for safety as the patient groom s GROOMING - SCORE: 6-RONEN BATHING: Activity did not occur on this shift BATHING - SCORE: 0-UNK DRESSING - UPPER BODY: Activity did not occur on this shift ARTICLES SCORE Total number of steps: 0 DRESSING - UPPER BODY - SCORE: 0-UNK DRESSING - LOWER BODY: Activity did not occur on this shift ARTICLES SCORE Total number of steps: 0 DRESSING - LOWER BODY - SCORE: 0-UNK TOILETING: TOILETING - STEP 1: Does the patient require the assistance of a person or device, or need extra time with toileting? Yes . TOILETING - STEP 2: Does the patient require the assistance of a helper? Yes. TOILETING - STEP 3: How much assistance does the patient require from the helper? Only supervision TOILETING - SCORE: 5-SUP BLADDER MANAGEMENT: Activity did not occur on this shift BLADDER MANAGEMENT - SCORE: 7-IND BOWEL MANAGEMENT: Activity did not occur on this shift BOWEL MANAGEMENT - SCORE: 7-IND TRANSFERS: BED, CHAIR, WHEELCHAIR: TRANSFERS: BED, CHAIR, WHEELCHAIR - STEP 1: Does the patient require assistance of a person or device, or need extra time with bed, chair, or whe elchair transfers? Yes. TRANSFERS: BED, CHAIR, WHEELCHAIR - STEP 2: Does the patient require the assistance of a helper? Yes. TRANSFERS: BED, CHAIR, WHEELCHAIR - STEP 3: How much assistance does the patient require from the helper? Only supervision TRANSFERS: BED, CHAIR, WHEELCHAIR - SCORE: 5-SUP TRANSFERS: TOILET: TRANSFERS: TOILET - STEP 1: Does the patient require the assistance of a person or device, or need extra time with toilet transfe rs? Yes. TRANSFERS: TOILET - STEP 2: Does the patient require the assistance of a helper? Yes. TRANSFERS: TOILET - STEP 3: How much assistance does the patient require from the helper? Only supervision, cuing, coaxing, OR he lp to set out transfer equipment or to lock brakes and/or lift foot rests TRANSFERS: TOILET - SCORE: 5-SUP TRANSFERS: SHOWER: Activity did not occur on this shift TRANSFERS: SHOWER - SCORE: 0-UNK TRANSFERS: TUB: Activity did not occur on this shift TRANSFERS: TUB - SCORE: 0-UNK LOCOMOTION: WALK: Activity did not occur on this shift LOCOMOTION: WALK - SCORE: 0-UNK LOCOMOTION: WHEELCHAIR: Activity did not occur on this shift LOCOMOTION: WHEELCHAIR - SCORE: 0-UNK LOCOMOTION: STAIRS: Activity did not occur on this shift LOCOMOTION: STAIRS - SCORE: 0-UNK COMPREHENSION: COMPREHENSION: TYPE: Both COMPREHENSION - STEP 1: Does the patient require help from a person or device, or need extra time to understand complex and a bstract ideas (such as current events, finances, discharge planning, medical issues, relationships, e tc)? Yes. COMPREHENSION - STEP 2: Does the patient require help to understand questions or statements about basic needs or ideas (such as hunger, thirst, sleep, safety, daily schedule, room location, or discomfort) half or more of the t lizeth? No. COMPREHENSION - STEP 3: How often does the patient need help to understand directions and conversation about basic needs? Les s than 10% of the time COMPREHENSION - SCORE: 5-SUP EXPRESSION EXPRESSION: TYPE: Both EXPRESSION - STEP 1: Does the patient require help from a person or device, or need extra time expressing complex and abst ract ideas (such as current events, finances, discharge planning, medical issues, relationships, etc) ? Yes. EXPRESSION - STEP 2: Does the patient require help to express basic necessities or ideas (such as hunger, thirst, sleep, s afety, daily schedule, room location, or discomfort) half or more of the time? No. EXPRESSION - STEP 3: How often does the patient need help to express directions and conversation about basic needs? Less t anne 10% of the time EXPRESSION - SCORE: 5-SUP SOCIAL INTERACTION: SOCIAL INTERACTION - STEP 1: Does the patient require a helper to interact with others in social and therapeutic situations? Yes. SOCIAL INTERACTION - STEP 2: Does the patient interact appropriately half or more of the time? Yes. SOCIAL INTERACTION - STEP 3: How often does the patient need help to interact appropriately? Less than 10% of the time SOCIAL INTERACTION - SCORE: 5-SUP PROBLEM SOLVING: PROBLEM SOLVING - STEP 1: Does the patient need help from a person or device, or need extra time to solve complex problems such as managing a checking account or confronting interpersonal problems? Yes. PROBLEM SOLVING - STEP 2: Does the patient solve basic routine problems half or more of the time? Yes. PROBLEM SOLVING - STEP 3: How often does the patient need help to solve basic routine problems? 25%-49% of the time PROBLEM SOLVING - SCORE: 3-MOD MEMORY: MEMORY - STEP 1: Does the patient need help from a person or device, or need extra time to remember frequently encount ered people, daily routines, and executing requests? Yes. MEMORY - STEP 2: How often does the patient need help to remember frequently encountered people, daily routines, and e xecuting requests? 25% - 49% of the time MEMORY - SCORE: 3-MOD SIGNATURE PANEL: The following modified sections: Eating - Score, Grooming - Score, Bathing - Score, Dressing - Upper Body - Score, Dressing - Lower Body - Score, Toileting - Score, Transfers: Bed, Chair, Wheelchair - S core, Transfers: Toilet - Score, Transfers: Shower - Score, Transfers: Tub - Score, Comprehension - S core, Expression - Score, Social Interaction - Score, Problem Solving - Score, Memory - Score were [e lectronically] signed by Raquel Busby OT on SunJun 25 2018 11:18:56 T-0500 ([place] Da ylight Time)
--- NOTE | 2018-06-25 13:20 | FAST ---
SHIFT START DATE/TIME: 06/25/2018 07:00 (CDT) SHIFT END DATE/TIME: 06/25/2018 19:00 (CDT) NAME SARI PERES DATE OF : 1940 DATE OF ADMISSION: 06/17/2018 20:40 (CDT) PHONE: AGE: 77 SSN# [id number] GENDER: Female ENCOUNTER PHYSICIAN: Dr. Huan Pepe M.D. ADMISSION DIAGNOSIS: - Medically Complex Conditions 17 - Other Medically Complex Conditions (17.9) Chronic Kidney Disease. EATING: EATING - STEP 1: Does the patient require the assistance of a person or device, or need extra time when eating? Yes. EATING - STEP 2: Does the patient require the assistance of a helper? Yes. EATING - STEP 3: Does the patient perform half or more of the eating tasks? Yes. EATING - STEP 4: Does the patient need only supervision, cuing, coaxing OR help to apply an orthosis OR help to cut fo od, open containers, pour liquids, or butter bread? Yes. EATING - SCORE: 5-SUP GROOMING: Comb/brush hair Wash, rinse, and dry face GROOMING - STEP 1: Does the patient require the assistance of a person or device, or need extra time when grooming? Yes. GROOMING - STEP 2: Does the patient require the assistance of a helper? No. The patient only requires an assistive devic e, OR takes more than reasonable time to groom, OR there is a concern for safety as the patient groom s GROOMING - SCORE: 6-RONEN BATHING: Activity did not occur on this shift BATHING - SCORE: 0-UNK DRESSING - UPPER BODY: T-shirt/pullover shirt (four steps) ARTICLES SCORE Total number of steps: 4 DRESSING - UPPER BODY - STEP 1: Does the patient require help from a person or device, or need extra time when dressing above the [address]? Yes. DRESSING - UPPER BODY - STEP 2: Does the patient require the assistance of a helper? Yes. DRESSING - UPPER BODY - STEP 3: Does the helper touch the patient while dressing? No. DRESSING - UPPER BODY - SCORE: 5-SUP DRESSING - LOWER BODY: Elastic waist pants (three steps) Underwear (three steps) ARTICLES SCORE Total number of steps: 6 DRESSING - LOWER BODY - STEP 1: Does the patient require help from a person or device, or need extra time when dressing below the [address]? Yes. DRESSING - LOWER BODY - STEP 2: Does the patient require the assistance of a helper? Yes. DRESSING - LOWER BODY - STEP 3: Does the helper touch the patient while dressing? Yes. DRESSING - LOWER BODY - STEP 4: How many of the total steps does the patient complete on his/her own? 0 DRESSING - LOWER BODY - STEP 5: Does patient require total assistance for dressing below the waist such as the helper holding clothin g and performing basically all the activities? Yes. DRESSING - LOWER BODY - SCORE: 1-DEP TOILETING: TOILETING - STEP 1: Does the patient require the assistance of a person or device, or need extra time with toileting? Yes . TOILETING - STEP 2: Does the patient require the assistance of a helper? Yes. TOILETING - STEP 3: How much assistance does the patient require from the helper? Hands-on assistance from the helper TOILETING - STEP 4: Of the 3 tasks: 1) Adjusting clothing prior to use, 2) Cleansing of perineal area, 3) Adjusting clot julian after use; How many tasks does the patient perform WITHOUT assistance of the helper? No tasks; h chao performs all three tasks TOILETING - SCORE: 1-DEP BLADDER MANAGEMENT: BLADDER MANAGEMENT - STEP 1: Does the patient control the bladder completely and intentionally without equipment or devices or med ications, and is always continent? No. BLADDER MANAGEMENT - STEP 2: Does the patient require the assistance of a helper? No, patient only requires extra time BLADDER MANAGEMENT - SCORE: 6-RONEN BLADDER MANAGEMENT - FREQUENCY OF ACCIDENTS: BLADDER MANAGEMENT(FA) - STEP 1: How many accidents has the patient had during the current shift? 0 BOWEL MANAGEMENT: BOWEL MANAGEMENT - STEP 1: Does the patient control bowels completely and intentionally without equipment devices or medications AND is always continent? No. BOWEL MANAGEMENT - STEP 2: Does the patient require the assistance of a helper? No, patient requires medication for control such as stool softeners, suppositories, laxatives, enemas, or OTC medications BOWEL MANAGEMENT - SCORE: 6-RONEN BOWEL MANAGEMENT - FREQUENCY OF ACCIDENTS: BOWEL MANAGEMENT(FA) - STEP 1: How many accidents has the patient had during the current shift? 0 TRANSFERS: BED, CHAIR, WHEELCHAIR: TRANSFERS: BED, CHAIR, WHEELCHAIR - STEP 1: Does the patient require assistance of a person or device, or need extra time with bed, chair, or whe elchair transfers? Yes. TRANSFERS: BED, CHAIR, WHEELCHAIR - STEP 2: Does the patient require the assistance of a helper? Yes. TRANSFERS: BED, CHAIR, WHEELCHAIR - STEP 3: How much assistance does the patient require from the helper? Steadying/guiding assistance TRANSFERS: BED, CHAIR, WHEELCHAIR - SCORE: 4-MIN TRANSFERS: TOILET: TRANSFERS: TOILET - STEP 1: Does the patient require the assistance of a person or device, or need extra time with toilet transfe rs? Yes. TRANSFERS: TOILET - STEP 2: Does the patient require the assistance of a helper? Yes. TRANSFERS: TOILET - STEP 3: How much assistance does the patient require from the helper? Patient performs half or more of the tr ansferring tasks TRANSFERS: TOILET - STEP 4: Does the patient need only incidental help such as contact guard or steadying during toilet transfer? Yes. TRANSFERS: TOILET - SCORE: 4-MIN TRANSFERS: SHOWER: Activity did not occur on this shift TRANSFERS: SHOWER - SCORE: 0-UNK TRANSFERS: TUB: Activity did not occur on this shift TRANSFERS: TUB - SCORE: 0-UNK LOCOMOTION: WALK: Activity did not occur on this shift LOCOMOTION: WALK - SCORE: 0-UNK LOCOMOTION: WHEELCHAIR: Activity did not occur on this shift LOCOMOTION: WHEELCHAIR - SCORE: 0-UNK COMPREHENSION: COMPREHENSION: TYPE: Both COMPREHENSION - STEP 1: Does the patient require help from a person or device, or need extra time to understand complex and a bstract ideas (such as current events, finances, discharge planning, medical issues, relationships, e tc)? No. COMPREHENSION - STEP 2: Does the patient need extra time, require an assistive device (such as glasses for visual comprehensi on or a hearing aid for auditory comprehension) or does s/he have mild difficulty understanding compl ex and abstract information? Yes. COMPREHENSION - SCORE: 6-RONEN EXPRESSION EXPRESSION: TYPE: Both EXPRESSION - STEP 1: Does the patient require help from a person or device, or need extra time expressing complex and abst ract ideas (such as current events, finances, discharge planning, medical issues, relationships, etc) ? No. EXPRESSION - STEP 2: Does the patient need extra time, require an assistive device (such as augmentive communication syste m or a communication board), OR does s/he have mild difficulty expressing complex and abstract ideas (including mild dysarthria or mild word-find problems)? Yes. EXPRESSION - SCORE: 6-RONEN SOCIAL INTERACTION: SOCIAL INTERACTION - STEP 1: Does the patient require a helper to interact with others in social and therapeutic situations? Yes. SOCIAL INTERACTION - STEP 2: Does the patient interact appropriately half or more of the time? Yes. SOCIAL INTERACTION - STEP 3: How often does the patient need help to interact appropriately? Less than 10% of the time SOCIAL INTERACTION - SCORE: 5-SUP PROBLEM SOLVING: PROBLEM SOLVING - STEP 1: Does the patient need help from a person or device, or need extra time to solve complex problems such as managing a checking account or confronting interpersonal problems? Yes. PROBLEM SOLVING - STEP 2: Does the patient solve basic routine problems half or more of the time? Yes. PROBLEM SOLVING - STEP 3: How often does the patient need help to solve basic routine problems? Less than 10% of the time PROBLEM SOLVING - SCORE: 5-SUP MEMORY: MEMORY - STEP 1: Does the patient need help from a person or device, or need extra time to remember frequently encount ered people, daily routines, and executing requests? Yes. MEMORY - STEP 2: How often does the patient need help to remember frequently encountered people, daily routines, and e xecuting requests? Less than 10% of the time MEMORY - SCORE: 5-SUP SIGNATURE PANEL: The following modified sections: Eating - Score, Grooming - Score, Bathing - Score, Dressing - Upper Body - Score, Dressing - Lower Body - Score, Toileting - Score, Bladder Management - Score, Bowel Man agement - Score, Transfers: Bed, Chair, Wheelchair - Score, Transfers: Toilet - Score, Transfers: Thelma wer - Score, Transfers: Tub - Score, Locomotion: Walk - Score, Locomotion: Wheelchair - Score, Compre hension - Score, Expression - Score, Social Interaction - Score, Problem Solving - Score, Memory - Sc ore were [electronically] signed by Aneta CaseyNSteve on SunJun 25 2018 13:19:53 T-0500 ([place])
--- NOTE | 2018-06-25 15:09 | FAST ---
ENCOUNTER DATE AND TIME: 06/25/2018 08:00 (CDT) NAME SARI PERES DATE OF : 1940 DATE OF ADMISSION: 06/17/2018 20:40 (CDT) PHONE: AGE: 77 SSN# [id number] GENDER: Female ENCOUNTER PHYSICIAN: Dr. Huan Pepe M.D. ADMISSION DIAGNOSIS: - Medically Complex Conditions 17 - Other Medically Complex Conditions (17.9) Chronic Kidney Disease. EATING: Activity did not occur on this shift EATING - SCORE: 0-UNK GROOMING: Activity did not occur on this shift GROOMING - SCORE: 0-UNK BATHING: Activity did not occur on this shift BATHING - SCORE: 0-UNK DRESSING - UPPER BODY: Activity did not occur on this shift Patient is not dressing in public clothing ARTICLES SCORE Total number of steps: 0 DRESSING - UPPER BODY - SCORE: 0-UNK DRESSING - LOWER BODY: Activity did not occur on this shift Patient is not dressing in public clothing ARTICLES SCORE Total number of steps: 0 DRESSING - LOWER BODY - SCORE: 0-UNK TOILETING: Activity did not occur on this shift TOILETING - SCORE: 0-UNK BLADDER MANAGEMENT: Activity did not occur on this shift BLADDER MANAGEMENT - SCORE: 7-IND BOWEL MANAGEMENT: Activity did not occur on this shift BOWEL MANAGEMENT - SCORE: 7-IND TRANSFERS: BED, CHAIR, WHEELCHAIR: TRANSFERS: BED, CHAIR, WHEELCHAIR - STEP 1: Does the patient require assistance of a person or device, or need extra time with bed, chair, or whe elchair transfers? Yes. TRANSFERS: BED, CHAIR, WHEELCHAIR - STEP 2: Does the patient require the assistance of a helper? No. Patient only requires an assistive device fo r bed, chair, wheelchair transfers such as a sliding board, grab bar, or brace, OR s/he takes more th an reasonable time, OR there is a safety concern when s/he performs the transfers TRANSFERS: BED, CHAIR, WHEELCHAIR - SCORE: 6-RONEN TRANSFERS: TOILET: Activity did not occur on this shift TRANSFERS: TOILET - SCORE: 0-UNK TRANSFERS: SHOWER: Activity did not occur on this shift TRANSFERS: SHOWER - SCORE: 0-UNK TRANSFERS: TUB: Activity did not occur on this shift TRANSFERS: TUB - SCORE: 0-UNK LOCOMOTION: WALK: LOCOMOTION: WALK - STEP 1: Does the patient need help from a person or device, or need extra time to walk 150 feet? Yes. LOCOMOTION: WALK - STEP 2: How much assistance does the patient require to walk a minimum of 150 feet? Patient walks less than 1 50 feet - but more than 50 feet - with the assistance of only one helper LOCOMOTION: WALK - SCORE: 2-MAX LOCOMOTION: WHEELCHAIR: Activity did not occur on this shift LOCOMOTION: WHEELCHAIR - SCORE: 0-UNK LOCOMOTION: STAIRS: LOCOMOTION: STAIRS - STEP 1: Does the patient need help to go up and down 12 to 14 stairs? Yes. LOCOMOTION: STAIRS - STEP 2: How much assistance does the patient need from the helper to go a minimum of 12 to 14 stairs? The pat ient goes less than 12 stairs, but at least 4 stairs LOCOMOTION: STAIRS - SCORE: 2-MAX COMPREHENSION: COMPREHENSION - SCORE: 0-UNK EXPRESSION EXPRESSION - SCORE: 0-UNK SOCIAL INTERACTION: SOCIAL INTERACTION - SCORE: 0-UNK PROBLEM SOLVING: PROBLEM SOLVING - SCORE: 0-UNK MEMORY: MEMORY - SCORE: 0-UNK SIGNATURE PANEL: The following modified sections: Transfers: Bed, Chair, Wheelchair - Score, Transfers: Toilet - Score , Locomotion: Walk - Score, Locomotion: Wheelchair - Score, Locomotion: Stairs - Score were [brenda patton] signed by Silas Marion PT on SunJun 25 2018 15:09:02 T-0500 (Central Daylight Time)
[2018-06-25] MEDS: WARFARIN SODIUM 2 MG TAB PO SCH (17:03)
[2018-06-25] MEDS: ATORVASTATIN 40 MG TAB PO SCH (20:35)
[2018-06-25] MEDS: DOCUSATE NA/SENNA CONC 1 TAB PO PRN (20:35)
[2018-06-25] MEDS: INSULIN DEGLUDEC SQ SCH (20:36)
--- NOTE | 2018-06-26 01:28 | FAST ---
SHIFT START DATE/TIME: 06/25/2018 19:00 (CDT) SHIFT END DATE/TIME: 06/26/2018 07:00 (CDT) NAME SARI PERES DATE OF : 1940 DATE OF ADMISSION: 06/17/2018 20:40 (CDT) PHONE: AGE: 77 SSN# [id number] GENDER: Female ENCOUNTER PHYSICIAN: Dr. Huan Pepe M.D. ADMISSION DIAGNOSIS: - Medically Complex Conditions 17 - Other Medically Complex Conditions (17.9) Chronic Kidney Disease. EATING: Activity did not occur on this shift EATING - SCORE: 0-UNK GROOMING: Activity did not occur on this shift GROOMING - SCORE: 0-UNK BATHING: Activity did not occur on this shift BATHING - SCORE: 0-UNK DRESSING - UPPER BODY: Patient is not dressing in public clothing ARTICLES SCORE Total number of steps: 0 DRESSING - UPPER BODY - SCORE: 0-UNK DRESSING - LOWER BODY: Patient is not dressing in public clothing ARTICLES SCORE Total number of steps: 0 DRESSING - LOWER BODY - SCORE: 0-UNK TOILETING: TOILETING - STEP 1: Does the patient require the assistance of a person or device, or need extra time with toileting? Yes . TOILETING - STEP 2: Does the patient require the assistance of a helper? Yes. TOILETING - STEP 3: How much assistance does the patient require from the helper? Hands-on assistance from the helper TOILETING - STEP 4: Of the 3 tasks: 1) Adjusting clothing prior to use, 2) Cleansing of perineal area, 3) Adjusting clot julian after use; How many tasks does the patient perform WITHOUT assistance of the helper? Two tasks TOILETING - SCORE: 3-MOD BLADDER MANAGEMENT: [place] removes incontinent device (Depends, pull ups, etc.); cleans the patient after accident / inco ntinent episode; and, applies new incontinent device. BLADDER MANAGEMENT - SCORE: 1-DEP BOWEL MANAGEMENT: Activity did not occur on this shift BOWEL MANAGEMENT - SCORE: 7-IND TRANSFERS: BED, CHAIR, WHEELCHAIR: TRANSFERS: BED, CHAIR, WHEELCHAIR - STEP 1: Does the patient require assistance of a person or device, or need extra time with bed, chair, or whe elchair transfers? Yes. TRANSFERS: BED, CHAIR, WHEELCHAIR - STEP 2: Does the patient require the assistance of a helper? Yes. TRANSFERS: BED, CHAIR, WHEELCHAIR - STEP 3: How much assistance does the patient require from the helper? Steadying/guiding assistance TRANSFERS: BED, CHAIR, WHEELCHAIR - SCORE: 4-MIN TRANSFERS: TOILET: TRANSFERS: TOILET - STEP 1: Does the patient require the assistance of a person or device, or need extra time with toilet transfe rs? Yes. TRANSFERS: TOILET - STEP 2: Does the patient require the assistance of a helper? Yes. TRANSFERS: TOILET - STEP 3: How much assistance does the patient require from the helper? Only supervision, cuing, coaxing, OR he lp to set out transfer equipment or to lock brakes and/or lift foot rests TRANSFERS: TOILET - SCORE: 5-SUP TRANSFERS: SHOWER: Activity did not occur on this shift TRANSFERS: SHOWER - SCORE: 0-UNK TRANSFERS: TUB: Activity did not occur on this shift TRANSFERS: TUB - SCORE: 0-UNK LOCOMOTION: WALK: Activity did not occur on this shift LOCOMOTION: WALK - SCORE: 0-UNK LOCOMOTION: WHEELCHAIR: Activity did not occur on this shift LOCOMOTION: WHEELCHAIR - SCORE: 0-UNK COMPREHENSION: COMPREHENSION: TYPE: Both COMPREHENSION - STEP 1: Does the patient require help from a person or device, or need extra time to understand complex and a bstract ideas (such as current events, finances, discharge planning, medical issues, relationships, e tc)? No. COMPREHENSION - STEP 2: Does the patient need extra time, require an assistive device (such as glasses for visual comprehensi on or a hearing aid for auditory comprehension) or does s/he have mild difficulty understanding compl ex and abstract information? Yes. COMPREHENSION - SCORE: 6-RONEN EXPRESSION EXPRESSION: TYPE: Both EXPRESSION - STEP 1: Does the patient require help from a person or device, or need extra time expressing complex and abst ract ideas (such as current events, finances, discharge planning, medical issues, relationships, etc) ? No. EXPRESSION - STEP 2: Does the patient need extra time, require an assistive device (such as augmentive communication syste m or a communication board), OR does s/he have mild difficulty expressing complex and abstract ideas (including mild dysarthria or mild word-find problems)? No. EXPRESSION - SCORE: 7-IND SOCIAL INTERACTION: SOCIAL INTERACTION - STEP 1: Does the patient require a helper to interact with others in social and therapeutic situations? No. SOCIAL INTERACTION - STEP 2: Does the patient need extra time in social situations, OR does s/he interact with staff, other patien ts, and family members ONLY in structured environments, OR does s/he require medication for social in teraction? Yes, patient needs extra time SOCIAL INTERACTION - SCORE: 6-RONEN PROBLEM SOLVING: PROBLEM SOLVING - STEP 1: Does the patient need help from a person or device, or need extra time to solve complex problems such as managing a checking account or confronting interpersonal problems? Yes. PROBLEM SOLVING - STEP 2: Does the patient solve basic routine problems half or more of the time? Yes. PROBLEM SOLVING - STEP 3: How often does the patient need help to solve basic routine problems? Less than 10% of the time PROBLEM SOLVING - SCORE: 5-SUP MEMORY: MEMORY - STEP 1: Does the patient need help from a person or device, or need extra time to remember frequently encount ered people, daily routines, and executing requests? No. MEMORY - STEP 2: Does the patient have slight difficulty recognizing frequently encountered people, daily routines, or executing requests without the need for repetition or using self-initiated or environmental cues to remember? Yes. MEMORY - SCORE: 6-RONEN SIGNATURE PANEL: The following modified sections: Eating - Score, Grooming - Score, Dressing - Upper Body - Score, Maynor ssing - Lower Body - Score, Toileting - Score, Bladder Management - Score, Bowel Management - Score, Transfers: Bed, Chair, Wheelchair - Score, Transfers: Toilet - Score, Transfers: Shower - Score, Lopez sfers: Tub - Score, Locomotion: Walk - Score, Locomotion: Wheelchair - Score, Comprehension - Score, Expression - Score, Social Interaction - Score, Problem Solving - Score, Memory - Score were [electro nically] signed by Zina Flynn CNA on SunJun 26 2018 01:27:59 GMT-0500 (Central Daylight Time)
[2018-06-26] MEDS: METOPROLOL XL 50 MG TAB PO SCH (05:11)
[2018-06-26] MEDS: INSULIN -REGULAR HUMAN 50 UNIT/0.5 ML ML SQ SCH ×4 (07:30→20:45)
[2018-06-26] MEDS: PANTOPRAZOLE 40MG TABLET PO SCH (07:45)
[2018-06-26] MEDS: RAMIPRIL 2.5 MG CAP PO SCH (08:00)
[2018-06-26] MEDS: FERROUS SULFATE 325 MG TAB PO SCH ×3 (08:00→20:46)
[2018-06-26] MEDS: ASPIRIN 81 MG CHEWABLE TABLET PO SCH (08:01)
[2018-06-26] MEDS: CHLORTHALIDONE 25 MG TAB PO SCH (08:01)
[2018-06-26] MEDS: CITALOPRAM 10 MG TABLET PO SCH (08:01)
[2018-06-26] MEDS: ANASTROZOLE 1 MG TAB PO SCH (08:01)
[2018-06-26] MEDS: ACETAMINOPHEN 500 MG TAB PO PRN (09:02)
[2018-06-26] MEDS: NYSTATIN PWDR 100000 UNIT/GM TOP SCH ×2 (12:26→19:28)
[2018-06-26] MEDS: LIDOCAINE 5% PATCH TOP SCH (12:26)
[2018-06-26 12:52] LABS: Protime INR 2.27
--- NOTE | 2018-06-26 14:49 | FAST ---
SHIFT START DATE/TIME: 06/26/2018 07:00 (CDT) SHIFT END DATE/TIME: 06/26/2018 19:00 (CDT) NAME SARI PERES DATE OF : 1940 DATE OF ADMISSION: 06/17/2018 20:40 (CDT) PHONE: AGE: 77 SSN# [id number] GENDER: Female ENCOUNTER PHYSICIAN: Dr. Huan Pepe M.D. ADMISSION DIAGNOSIS: - Medically Complex Conditions 17 - Other Medically Complex Conditions (17.9) Chronic Kidney Disease. EATING: EATING - STEP 1: Does the patient require the assistance of a person or device, or need extra time when eating? Yes. EATING - STEP 2: Does the patient require the assistance of a helper? No, patient only requires an assistive device, O R s/he takes more than reasonable time to eat, OR there is a safety concern, OR s/he requires modifie d food consistency EATING - SCORE: 6-RONEN GROOMING: Comb/brush hair Oral care Wash, rinse, and dry face Wash, rinse, and dry hands GROOMING - STEP 1: Does the patient require the assistance of a person or device, or need extra time when grooming? Yes. GROOMING - STEP 2: Does the patient require the assistance of a helper? No. The patient only requires an assistive devic e, OR takes more than reasonable time to groom, OR there is a concern for safety as the patient groom s GROOMING - SCORE: 6-ORNEN BATHING: Activity did not occur on this shift BATHING - SCORE: 0-UNK DRESSING - UPPER BODY: Activity did not occur on this shift ARTICLES SCORE Total number of steps: 0 DRESSING - UPPER BODY - SCORE: 0-UNK DRESSING - LOWER BODY: Activity did not occur on this shift ARTICLES SCORE Total number of steps: 0 DRESSING - LOWER BODY - SCORE: 0-UNK TOILETING: TOILETING - STEP 1: Does the patient require the assistance of a person or device, or need extra time with toileting? Yes . TOILETING - STEP 2: Does the patient require the assistance of a helper? Yes. TOILETING - STEP 3: How much assistance does the patient require from the helper? Hands-on assistance from the helper TOILETING - STEP 4: Of the 3 tasks: 1) Adjusting clothing prior to use, 2) Cleansing of perineal area, 3) Adjusting clot julian after use; How many tasks does the patient perform WITHOUT assistance of the helper? Three tasks with steadying assistance from the helper TOILETING - SCORE: 4-MIN BLADDER MANAGEMENT: BLADDER MANAGEMENT - STEP 1: Does the patient control the bladder completely and intentionally without equipment or devices or med ications, and is always continent? No. BLADDER MANAGEMENT - STEP 2: Does the patient require the assistance of a helper? No, patient requires and independently uses an a ssistive device, such as a urinal, bedpan, bedside commode, catheter, absorbent pad, or collecting de vice BLADDER MANAGEMENT - SCORE: 6-RONEN BOWEL MANAGEMENT: Activity did not occur on this shift BOWEL MANAGEMENT - SCORE: 7-IND TRANSFERS: BED, CHAIR, WHEELCHAIR: TRANSFERS: BED, CHAIR, WHEELCHAIR - STEP 1: Does the patient require assistance of a person or device, or need extra time with bed, chair, or whe elchair transfers? Yes. TRANSFERS: BED, CHAIR, WHEELCHAIR - STEP 2: Does the patient require the assistance of a helper? Yes. TRANSFERS: BED, CHAIR, WHEELCHAIR - STEP 3: How much assistance does the patient require from the helper? Steadying/guiding assistance TRANSFERS: BED, CHAIR, WHEELCHAIR - SCORE: 4-MIN TRANSFERS: TOILET: TRANSFERS: TOILET - STEP 1: Does the patient require the assistance of a person or device, or need extra time with toilet transfe rs? Yes. TRANSFERS: TOILET - STEP 2: Does the patient require the assistance of a helper? Yes. TRANSFERS: TOILET - STEP 3: How much assistance does the patient require from the helper? Patient performs half or more of the tr ansferring tasks TRANSFERS: TOILET - STEP 4: Does the patient need only incidental help such as contact guard or steadying during toilet transfer? No. Patient needs more than incidental help TRANSFERS: TOILET - SCORE: 3-MOD TRANSFERS: SHOWER: Activity did not occur on this shift TRANSFERS: SHOWER - SCORE: 0-UNK TRANSFERS: TUB: Activity did not occur on this shift TRANSFERS: TUB - SCORE: 0-UNK LOCOMOTION: WALK: Activity did not occur on this shift LOCOMOTION: WALK - SCORE: 0-UNK LOCOMOTION: WHEELCHAIR: Activity did not occur on this shift LOCOMOTION: WHEELCHAIR - SCORE: 0-UNK COMPREHENSION: COMPREHENSION: TYPE: Both COMPREHENSION - STEP 1: Does the patient require help from a person or device, or need extra time to understand complex and a bstract ideas (such as current events, finances, discharge planning, medical issues, relationships, e tc)? No. COMPREHENSION - STEP 2: Does the patient need extra time, require an assistive device (such as glasses for visual comprehensi on or a hearing aid for auditory comprehension) or does s/he have mild difficulty understanding compl ex and abstract information? Yes. COMPREHENSION - SCORE: 6-RONEN EXPRESSION EXPRESSION: TYPE: Both EXPRESSION - STEP 1: Does the patient require help from a person or device, or need extra time expressing complex and abst ract ideas (such as current events, finances, discharge planning, medical issues, relationships, etc) ? No. EXPRESSION - STEP 2: Does the patient need extra time, require an assistive device (such as augmentive communication syste m or a communication board), OR does s/he have mild difficulty expressing complex and abstract ideas (including mild dysarthria or mild word-find problems)? Yes. EXPRESSION - SCORE: 6-RONEN SOCIAL INTERACTION: SOCIAL INTERACTION - STEP 1: Does the patient require a helper to interact with others in social and therapeutic situations? No. SOCIAL INTERACTION - STEP 2: Does the patient need extra time in social situations, OR does s/he interact with staff, other patien ts, and family members ONLY in structured environments, OR does s/he require medication for social in teraction? Yes, patient needs extra time SOCIAL INTERACTION - SCORE: 6-RONEN PROBLEM SOLVING: PROBLEM SOLVING - STEP 1: Does the patient need help from a person or device, or need extra time to solve complex problems such as managing a checking account or confronting interpersonal problems? No. PROBLEM SOLVING - STEP 2: Does the patient require extra time to make decisions or solve problems, OR does s/he have slight dif ficulty reading, initiating, or self-correcting in unfamiliar situations? Yes, patient needs extra ti me. PROBLEM SOLVING - SCORE: 6-RONEN MEMORY: MEMORY - STEP 1: Does the patient need help from a person or device, or need extra time to remember frequently encount ered people, daily routines, and executing requests? No. MEMORY - STEP 2: Does the patient have slight difficulty recognizing frequently encountered people, daily routines, or executing requests without the need for repetition or using self-initiated or environmental cues to remember? Yes. MEMORY - SCORE: 6-RONEN SIGNATURE PANEL: The following modified sections: Eating - Score, Grooming - Score, Bathing - Score, Dressing - Upper Body - Score, Dressing - Lower Body - Score, Toileting - Score, Bladder Management - Score, Bowel Man agement - Score, Transfers: Bed, Chair, Wheelchair - Score, Transfers: Toilet - Score, Transfers: Thelma wer - Score, Transfers: Tub - Score, Locomotion: Walk - Score, Locomotion: Wheelchair - Score, Compre hension - Score, Expression - Score, Social Interaction - Score, Problem Solving - Score, Memory - Sc ore were [electronically] signed by Demetris Klein on SunJun 26 2018 14:49:29 GMT-0500 (Central Daylight Time)
--- NOTE | 2018-06-26 15:10 | FAST ---
ENCOUNTER DATE AND TIME: 06/26/2018 08:00 (CDT) NAME SARI PERES DATE OF : 1940 DATE OF ADMISSION: 06/17/2018 20:40 (CDT) PHONE: AGE: 77 SSN# [id number] GENDER: Female ENCOUNTER PHYSICIAN: Dr. Huan Pepe M.D. ADMISSION DIAGNOSIS: - Medically Complex Conditions 17 - Other Medically Complex Conditions (17.9) Chronic Kidney Disease. EATING: Activity did not occur on this shift EATING - SCORE: 0-UNK GROOMING: Activity did not occur on this shift GROOMING - SCORE: 0-UNK BATHING: Activity did not occur on this shift BATHING - SCORE: 0-UNK DRESSING - UPPER BODY: Activity did not occur on this shift Patient is not dressing in public clothing ARTICLES SCORE Total number of steps: 0 DRESSING - UPPER BODY - SCORE: 0-UNK DRESSING - LOWER BODY: Activity did not occur on this shift Patient is not dressing in public clothing ARTICLES SCORE Total number of steps: 0 DRESSING - LOWER BODY - SCORE: 0-UNK TOILETING: Activity did not occur on this shift TOILETING - SCORE: 0-UNK BLADDER MANAGEMENT: Activity did not occur on this shift BLADDER MANAGEMENT - SCORE: 7-IND BOWEL MANAGEMENT: Activity did not occur on this shift BOWEL MANAGEMENT - SCORE: 7-IND TRANSFERS: BED, CHAIR, WHEELCHAIR: TRANSFERS: BED, CHAIR, WHEELCHAIR - STEP 1: Does the patient require assistance of a person or device, or need extra time with bed, chair, or whe elchair transfers? Yes. TRANSFERS: BED, CHAIR, WHEELCHAIR - STEP 2: Does the patient require the assistance of a helper? No. Patient only requires an assistive device fo r bed, chair, wheelchair transfers such as a sliding board, grab bar, or brace, OR s/he takes more th an reasonable time, OR there is a safety concern when s/he performs the transfers TRANSFERS: BED, CHAIR, WHEELCHAIR - SCORE: 6-RONEN TRANSFERS: TOILET: Activity did not occur on this shift TRANSFERS: TOILET - SCORE: 0-UNK TRANSFERS: SHOWER: Activity did not occur on this shift TRANSFERS: SHOWER - SCORE: 0-UNK TRANSFERS: TUB: Activity did not occur on this shift TRANSFERS: TUB - SCORE: 0-UNK LOCOMOTION: WALK: LOCOMOTION: WALK - STEP 1: Does the patient need help from a person or device, or need extra time to walk 150 feet? Yes. LOCOMOTION: WALK - STEP 2: How much assistance does the patient require to walk a minimum of 150 feet? Only supervision, cuing, or coaxing LOCOMOTION: WALK - SCORE: 5-SUP LOCOMOTION: WHEELCHAIR: Activity did not occur on this shift LOCOMOTION: WHEELCHAIR - SCORE: 0-UNK LOCOMOTION: STAIRS: Activity did not occur on this shift LOCOMOTION: STAIRS - SCORE: 0-UNK COMPREHENSION: COMPREHENSION - SCORE: 0-UNK EXPRESSION EXPRESSION - SCORE: 0-UNK SOCIAL INTERACTION: SOCIAL INTERACTION - SCORE: 0-UNK PROBLEM SOLVING: PROBLEM SOLVING - SCORE: 0-UNK MEMORY: MEMORY - SCORE: 0-UNK SIGNATURE PANEL: The following modified sections: Transfers: Bed, Chair, Wheelchair - Score, Transfers: Toilet - Score , Locomotion: Walk - Score, Locomotion: Wheelchair - Score, Locomotion: Stairs - Score were [brenda patton] signed by Silas Marion PT on SunJun 26 2018 15:08:49 T-0500 (Central Daylight Time)
[2018-06-26] MEDS: WARFARIN SODIUM 2 MG TAB PO SCH (16:33)
[2018-06-26] MEDS: MAGNESIUM OXIDE 400 MG TAB PO SCH (19:28)
[2018-06-26] MEDS: ATORVASTATIN 40 MG TAB PO SCH (20:46)
[2018-06-26] MEDS: TRESIBA (INSULIN DEGLUDEC) SQ SCH (20:46)
[2018-06-27] MEDS: METOPROLOL XL 50 MG TAB PO SCH (05:06)
[2018-06-27] MEDS: PANTOPRAZOLE 40MG TABLET PO SCH (06:43)
[2018-06-27 06:51] LABS: Absolute Lymphocytes (CBC) 2.2 K/uL (0.7-4.9); Absolute Monocytes 0.4 K/uL (0.1-1.3); Absolute Neutrophil 4.3 K/uL (1.8-8.0); Basophils % 0.9 % (0-1.3); Eosinophils % 6.2 % (0-4.4); Hematocrit 32.5 % (36.0-45.0); Lymphocytes % 29.7 % (15.3-44.8); MPV 9.4 fL (7.6-11.3); Monocytes % 5.9 % (3.3-12.3); RBC Red Blood Cell Count 3.49 M/uL (3.86-4.86)
[2018-06-27 07:09] LABS: Potassium 4.9 mmol/L (3.5-5.1); Prealbumin 16.7 mg/dL (20-40)
[2018-06-27 07:28] LABS: Protime INR 2.66
[2018-06-27] MEDS: INSULIN -REGULAR HUMAN 50 UNIT/0.5 ML ML SQ SCH ×4 (07:30→20:32)
[2018-06-27] MEDS: NYSTATIN PWDR 100000 UNIT/GM TOP SCH ×2 (08:00→20:33)
[2018-06-27] MEDS: MAGNESIUM OXIDE 400 MG TAB PO SCH ×2 (08:04→20:33)
[2018-06-27] MEDS: ASPIRIN 81 MG CHEWABLE TABLET PO SCH (08:04)
[2018-06-27] MEDS: RAMIPRIL 2.5 MG CAP PO SCH (08:04)
[2018-06-27] MEDS: CITALOPRAM 10 MG TABLET PO SCH (08:05)
[2018-06-27] MEDS: CHLORTHALIDONE 25 MG TAB PO SCH (08:05)
[2018-06-27] MEDS: FERROUS SULFATE 325 MG TAB PO SCH ×3 (08:05→20:33)
[2018-06-27] MEDS: ANASTROZOLE 1 MG TAB PO SCH (08:05)
[2018-06-27] MEDS: LIDOCAINE 5% PATCH TOP SCH (08:06)
[2018-06-27] MEDS: TRAMADOL HCL 50 MG TAB PO PRN (10:13)
--- NOTE | 2018-06-27 11:11 | FAST ---
SHIFT START DATE/TIME: 06/27/2018 07:00 (CDT) SHIFT END DATE/TIME: 06/27/2018 19:00 (CDT) NAME SARI PERES DATE OF : 1940 DATE OF ADMISSION: 06/17/2018 20:40 (CDT) PHONE: AGE: 77 SSN# [id number] GENDER: Female ENCOUNTER PHYSICIAN: Dr. Huan Pepe M.D. ADMISSION DIAGNOSIS: - Medically Complex Conditions 17 - Other Medically Complex Conditions (17.9) Chronic Kidney Disease. EATING: EATING - STEP 1: Does the patient require the assistance of a person or device, or need extra time when eating? Yes. EATING - STEP 2: Does the patient require the assistance of a helper? Yes. EATING - STEP 3: Does the patient perform half or more of the eating tasks? Yes. EATING - STEP 4: Does the patient need only supervision, cuing, coaxing OR help to apply an orthosis OR help to cut fo od, open containers, pour liquids, or butter bread? Yes. EATING - SCORE: 5-SUP GROOMING: Comb/brush hair Wash, rinse, and dry face Wash, rinse, and dry hands GROOMING - STEP 1: Does the patient require the assistance of a person or device, or need extra time when grooming? Yes. GROOMING - STEP 2: Does the patient require the assistance of a helper? Yes. GROOMING - STEP 3: How much assistance does the patient require from the helper? Cuing, coaxing, instructions, or encour agement for completion of grooming GROOMING - SCORE: 5-SUP BATHING: Activity did not occur on this shift BATHING - SCORE: 0-UNK DRESSING - UPPER BODY: Activity did not occur on this shift ARTICLES SCORE Total number of steps: 0 DRESSING - UPPER BODY - SCORE: 0-UNK DRESSING - LOWER BODY: Activity did not occur on this shift ARTICLES SCORE Total number of steps: 0 DRESSING - LOWER BODY - SCORE: 0-UNK TOILETING: TOILETING - STEP 1: Does the patient require the assistance of a person or device, or need extra time with toileting? Yes . TOILETING - STEP 2: Does the patient require the assistance of a helper? Yes. TOILETING - STEP 3: How much assistance does the patient require from the helper? Hands-on assistance from the helper TOILETING - STEP 4: Of the 3 tasks: 1) Adjusting clothing prior to use, 2) Cleansing of perineal area, 3) Adjusting clot julian after use; How many tasks does the patient perform WITHOUT assistance of the helper? Three tasks with steadying assistance from the helper TOILETING - SCORE: 4-MIN BLADDER MANAGEMENT: BLADDER MANAGEMENT - STEP 1: Does the patient control the bladder completely and intentionally without equipment or devices or med ications, and is always continent? No. BLADDER MANAGEMENT - STEP 2: Does the patient require the assistance of a helper? No, patient requires and independently uses an a ssistive device, such as a urinal, bedpan, bedside commode, catheter, absorbent pad, or collecting de vice BLADDER MANAGEMENT - SCORE: 6-RONEN BOWEL MANAGEMENT: Activity did not occur on this shift BOWEL MANAGEMENT - SCORE: 7-IND TRANSFERS: BED, CHAIR, WHEELCHAIR: TRANSFERS: BED, CHAIR, WHEELCHAIR - STEP 1: Does the patient require assistance of a person or device, or need extra time with bed, chair, or whe elchair transfers? Yes. TRANSFERS: BED, CHAIR, WHEELCHAIR - STEP 2: Does the patient require the assistance of a helper? Yes. TRANSFERS: BED, CHAIR, WHEELCHAIR - STEP 3: How much assistance does the patient require from the helper? Steadying/guiding assistance TRANSFERS: BED, CHAIR, WHEELCHAIR - SCORE: 4-MIN TRANSFERS: TOILET: TRANSFERS: TOILET - STEP 1: Does the patient require the assistance of a person or device, or need extra time with toilet transfe rs? Yes. TRANSFERS: TOILET - STEP 2: Does the patient require the assistance of a helper? Yes. TRANSFERS: TOILET - STEP 3: How much assistance does the patient require from the helper? Patient performs half or more of the tr ansferring tasks TRANSFERS: TOILET - STEP 4: Does the patient need only incidental help such as contact guard or steadying during toilet transfer? No. Patient needs more than incidental help TRANSFERS: TOILET - SCORE: 3-MOD TRANSFERS: SHOWER: Activity did not occur on this shift TRANSFERS: SHOWER - SCORE: 0-UNK TRANSFERS: TUB: Activity did not occur on this shift TRANSFERS: TUB - SCORE: 0-UNK LOCOMOTION: WALK: Activity did not occur on this shift LOCOMOTION: WALK - SCORE: 0-UNK LOCOMOTION: WHEELCHAIR: Activity did not occur on this shift LOCOMOTION: WHEELCHAIR - SCORE: 0-UNK COMPREHENSION: COMPREHENSION - SCORE: 0-UNK EXPRESSION EXPRESSION - SCORE: 0-UNK SOCIAL INTERACTION: SOCIAL INTERACTION - SCORE: 0-UNK PROBLEM SOLVING: PROBLEM SOLVING - SCORE: 0-UNK MEMORY: MEMORY - SCORE: 0-UNK SIGNATURE PANEL: The following modified sections: Eating - Score, Grooming - Score, Bathing - Score, Dressing - Upper Body - Score, Dressing - Lower Body - Score, Toileting - Score, Bladder Management - Score, Bowel Man agement - Score, Transfers: Bed, Chair, Wheelchair - Score, Transfers: Toilet - Score, Transfers: Thelma wer - Score, Transfers: Tub - Score, Locomotion: Walk - Score, Locomotion: Wheelchair - Score, Compre hension - Score, Expression - Score, Social Interaction - Score, Problem Solving - Score, Memory - Sc ore were [electronically] signed by Demetris Klein on SunJun 27 2018 11:11:07 T-0500 (Central Daylight Time)
--- NOTE | 2018-06-27 14:13 | FAST ---
ENCOUNTER DATE AND TIME: 06/27/2018 08:00 (CDT) NAME SARI PERES DATE OF : 1940 DATE OF ADMISSION: 06/17/2018 20:40 (CDT) PHONE: AGE: 77 SSN# [id number] GENDER: Female ENCOUNTER PHYSICIAN: Dr. Huan Pepe M.D. ADMISSION DIAGNOSIS: - Medically Complex Conditions 17 - Other Medically Complex Conditions (17.9) Chronic Kidney Disease. EATING: Activity did not occur on this shift EATING - SCORE: 0-UNK GROOMING: Comb/brush hair Wash, rinse, and dry face Wash, rinse, and dry hands GROOMING - STEP 1: Does the patient require the assistance of a person or device, or need extra time when grooming? Yes. GROOMING - STEP 2: Does the patient require the assistance of a helper? No. The patient only requires an assistive devic e, OR takes more than reasonable time to groom, OR there is a concern for safety as the patient groom s GROOMING - SCORE: 6-RONEN BATHING: Abdomen Buttocks Chest Left arm Left lower leg and foot Left upper leg Perineal area Right arm Right lower leg and foot Right upper leg BATHING - STEP 1: Does the patient require the assistance of a person or device, or need extra time when bathing? Yes. BATHING - STEP 2: Does the patient require the assistance of a helper? Yes. BATHING - STEP 3: How much assistance does the patient require from the helper? Only supervision, cuing, coaxing, instr uctions, encouragement BATHING - SCORE: 5-SUP DRESSING - UPPER BODY: Bra (three steps) T-shirt/pullover shirt (four steps) ARTICLES SCORE Total number of steps: 7 DRESSING - UPPER BODY - STEP 1: Does the patient require help from a person or device, or need extra time when dressing above the [address]? Yes. DRESSING - UPPER BODY - STEP 2: Does the patient require the assistance of a helper? Yes. DRESSING - UPPER BODY - STEP 3: Does the helper touch the patient while dressing? Yes. DRESSING - UPPER BODY - STEP 4: How many of the total steps does the patient complete on his/her own? 6 DRESSING - UPPER BODY - SCORE: 4-MIN DRESSING - LOWER BODY: Elastic waist pants (three steps) Sock - Left foot (one step) Sock - Right foot (one step) Underwear (three steps) ARTICLES SCORE Total number of steps: 8 DRESSING - LOWER BODY - STEP 1: Does the patient require help from a person or device, or need extra time when dressing below the [address]? Yes. DRESSING - LOWER BODY - STEP 2: Does the patient require the assistance of a helper? Yes. DRESSING - LOWER BODY - STEP 3: Does the helper touch the patient while dressing? Yes. DRESSING - LOWER BODY - STEP 4: How many of the total steps does the patient complete on his/her own? 6 DRESSING - LOWER BODY - SCORE: 4-MIN TOILETING: TOILETING - STEP 1: Does the patient require the assistance of a person or device, or need extra time with toileting? Yes . TOILETING - STEP 2: Does the patient require the assistance of a helper? Yes. TOILETING - STEP 3: How much assistance does the patient require from the helper? Only supervision TOILETING - SCORE: 5-SUP BLADDER MANAGEMENT: Activity did not occur on this shift BLADDER MANAGEMENT - SCORE: 7-IND BOWEL MANAGEMENT: Activity did not occur on this shift BOWEL MANAGEMENT - SCORE: 7-IND TRANSFERS: BED, CHAIR, WHEELCHAIR: Activity did not occur on this shift TRANSFERS: BED, CHAIR, WHEELCHAIR - SCORE: 0-UNK TRANSFERS: TOILET: TRANSFERS: TOILET - STEP 1: Does the patient require the assistance of a person or device, or need extra time with toilet transfe rs? Yes. TRANSFERS: TOILET - STEP 2: Does the patient require the assistance of a helper? Yes. TRANSFERS: TOILET - STEP 3: How much assistance does the patient require from the helper? Only supervision, cuing, coaxing, OR he lp to set out transfer equipment or to lock brakes and/or lift foot rests TRANSFERS: TOILET - SCORE: 5-SUP TRANSFERS: SHOWER: Activity did not occur on this shift TRANSFERS: SHOWER - SCORE: 0-UNK TRANSFERS: TUB: TRANSFERS: TUB - STEP 1: Does the patient require the assistance of a person or device, or need extra time with tub transfers? Yes. TRANSFERS: TUB - STEP 2: Does the patient require the assistance of a helper? Yes. TRANSFERS: TUB - STEP 3: How much assistance does the patient require from the helper? Only supervision, cuing, coaxing, or he lp to set out transfer equipment or to lock brakes and/or lift foot rests TRANSFERS: TUB - SCORE: 5-SUP LOCOMOTION: WALK: Activity did not occur on this shift LOCOMOTION: WALK - SCORE: 0-UNK LOCOMOTION: WHEELCHAIR: Activity did not occur on this shift LOCOMOTION: WHEELCHAIR - SCORE: 0-UNK LOCOMOTION: STAIRS: Activity did not occur on this shift LOCOMOTION: STAIRS - SCORE: 0-UNK COMPREHENSION: COMPREHENSION - SCORE: 0-UNK EXPRESSION EXPRESSION - SCORE: 0-UNK SOCIAL INTERACTION: SOCIAL INTERACTION - SCORE: 0-UNK PROBLEM SOLVING: PROBLEM SOLVING - SCORE: 0-UNK MEMORY: MEMORY - SCORE: 0-UNK SIGNATURE PANEL: The following modified sections: Eating - Score, Grooming - Score, Bathing - Score, Dressing - Upper Body - Score, Dressing - Lower Body - Score, Toileting - Score, Transfers: Bed, Chair, Wheelchair - S core, Transfers: Toilet - Score, Transfers: Shower - Score, Transfers: Tub - Score, Comprehension - S core, Expression - Score, Social Interaction - Score, Problem Solving - Score, Memory - Score were [e lectronically] signed by CHIO Henson on SunJun 27 2018 14:12:25 T-0500 ([facility] Time)
--- NOTE | 2018-06-27 15:21 | FAST ---
ENCOUNTER DATE AND TIME: 06/27/2018 08:00 (CDT) NAME SARI PERES DATE OF : 1940 DATE OF ADMISSION: 06/17/2018 20:40 (CDT) PHONE: AGE: 77 SSN# [id number] GENDER: Female ENCOUNTER PHYSICIAN: Dr. Huan Pepe M.D. ADMISSION DIAGNOSIS: - Medically Complex Conditions 17 - Other Medically Complex Conditions (17.9) Chronic Kidney Disease. EATING: Activity did not occur on this shift EATING - SCORE: 0-UNK GROOMING: Activity did not occur on this shift GROOMING - SCORE: 0-UNK BATHING: Activity did not occur on this shift BATHING - SCORE: 0-UNK DRESSING - UPPER BODY: Activity did not occur on this shift Patient is not dressing in public clothing ARTICLES SCORE Total number of steps: 0 DRESSING - UPPER BODY - SCORE: 0-UNK DRESSING - LOWER BODY: Activity did not occur on this shift Patient is not dressing in public clothing ARTICLES SCORE Total number of steps: 0 DRESSING - LOWER BODY - SCORE: 0-UNK TOILETING: Activity did not occur on this shift TOILETING - SCORE: 0-UNK BLADDER MANAGEMENT: Activity did not occur on this shift BLADDER MANAGEMENT - SCORE: 7-IND BOWEL MANAGEMENT: Activity did not occur on this shift BOWEL MANAGEMENT - SCORE: 7-IND TRANSFERS: BED, CHAIR, WHEELCHAIR: TRANSFERS: BED, CHAIR, WHEELCHAIR - STEP 1: Does the patient require assistance of a person or device, or need extra time with bed, chair, or whe elchair transfers? Yes. TRANSFERS: BED, CHAIR, WHEELCHAIR - STEP 2: Does the patient require the assistance of a helper? No. Patient only requires an assistive device fo r bed, chair, wheelchair transfers such as a sliding board, grab bar, or brace, OR s/he takes more th an reasonable time, OR there is a safety concern when s/he performs the transfers TRANSFERS: BED, CHAIR, WHEELCHAIR - SCORE: 6-RONEN TRANSFERS: TOILET: TRANSFERS: TOILET - STEP 1: Does the patient require the assistance of a person or device, or need extra time with toilet transfe rs? Yes. TRANSFERS: TOILET - STEP 2: Does the patient require the assistance of a helper? No. Patient only requires an assistive device peralta ch as a grab bar or special seat, OR s/he takes more than reasonable time to perform toilet transfers , OR there is a safety concern when s/he performs toilet transfers. TRANSFERS: TOILET - SCORE: 6-RONEN TRANSFERS: SHOWER: Activity did not occur on this shift TRANSFERS: SHOWER - SCORE: 0-UNK TRANSFERS: TUB: Activity did not occur on this shift TRANSFERS: TUB - SCORE: 0-UNK LOCOMOTION: WALK: HOUSEHOLD EXCEPTION: Patient walks at least 50 feet independently (with or without a device) LOCOMOTION: WALK - SCORE: 5-SUP LOCOMOTION: WHEELCHAIR: Activity did not occur on this shift LOCOMOTION: WHEELCHAIR - SCORE: 0-UNK LOCOMOTION: STAIRS: LOCOMOTION: STAIRS - STEP 1: Does the patient need help to go up and down 12 to 14 stairs? Yes. LOCOMOTION: STAIRS - STEP 2: How much assistance does the patient need from the helper to go a minimum of 12 to 14 stairs? Only peralta pervision, cuing, or coaxing LOCOMOTION: STAIRS - SCORE: 5-SUP COMPREHENSION: COMPREHENSION - SCORE: 0-UNK EXPRESSION EXPRESSION - SCORE: 0-UNK SOCIAL INTERACTION: SOCIAL INTERACTION - SCORE: 0-UNK PROBLEM SOLVING: PROBLEM SOLVING - SCORE: 0-UNK MEMORY: MEMORY - SCORE: 0-UNK SIGNATURE PANEL: The following modified sections: Transfers: Bed, Chair, Wheelchair - Score, Transfers: Toilet - Score , Locomotion: Walk - Score, Locomotion: Wheelchair - Score, Locomotion: Stairs - Score were [electron pooja] signed by Silas Marion PT on SunJun 27 2018 15:19:43 T-0500 (Central Daylight Time)
[2018-06-27] MEDS: WARFARIN SODIUM 2 MG TAB PO SCH (17:02)
--- NOTE | 2018-06-27 18:09 | R.PN ---
ENCOUNTER DATE AND TIME: 06/27/2018 18:04 (CDT) NAME SARI PERES DATE OF : 1940 DATE OF ADMISSION: 06/17/2018 20:40 (CDT) Chronic Kidney DiseaseCHIEF COMPLAINT: Chronic kidney disease with debility SUBJECTIVE: Pt denied any depression. Pt denied any Shortness of Breath. Ambulated 330' with standby assistance using a rolling walker. Hgb 10.0, WBC 7.0, Glucose 67 to 174. Restarted insulin glargine 4 units at bedtime with improved glucose control. Will increase to 45 unit s at bedtime and continue mild insulin sliding scale. VITAL SIGNS Temperature: 97.4 F SBP/DBP: 140/94 Pulse: 51 Resp: 16 MEDICATION ALLERGIES: quinolones ENVIRONMENTAL ALLERGIES: - Substance Allergies None Known - Other Allergies None Known NURSING: - Shower allowing shower - Lab Results blood Sugar Check ACHS PRECAUTIONS: - Weight Bearing Precaution NWB right LE ACTIVITIES OOB only with supervision THERAPIES: - Occupational Therapy Evaluate and Treat. - Physical Therapy Evaluate and Treat. PHYSICAL EXAM - Gen Alert and awake Lying in bed No apparent distress Oriented to: person, time, and place - Skin No breakdown No abnormalities - Eyes No abnormalities - ENMT No abnormalities - Neck No abnormalities - CVS RRR - Chest No abnormalities - Abd Soft - GI nondistended Deferred - No abnormalities - Ext No significant edema. Right lower extremity in knee immobilizer due to moderate right medial meniscus tear. - MSK 4+/5 weakness in right lower extremity - Neuro 4/5 strength right lower extremity. - Psych No abnormalities ASSESSMENT: Pt. is a 77 yo Right-handed female.On 06/16/2018 she was admitted to [facility] with diagnosis Chronic Kidney Disease.Her impairment category is Medically Complex Conditio ns 17 - Other Medically Complex Conditions (17.9).Pre-morbidly, Pt. was independent/mod-I in Self-Ca re, Sphincter Control, Transfers Control, Locomotion, and Communication; and she had good Sphincter C ontrol.Currently, she has deficits of Transfers Control, Locomotion, Communication, Social Cognition, Endurance, Balance, Safety Awareness, and Self-Care.Pt. is now referred to [facility] for acute in-patient rehabilitation in order to maximize patient's functional independence i n activities of daily living, strength, ROM, and mobility.- Rehab Goal Patient has realistic goal of being discharged at assistance level 6-Melvin to reside at Home with Att endant. MDM/PLAN: - Physical Therapy Gait dysfunction - to improve, our physical therapists will perform initial evaluation of pt's statu s upon admission and devise an individualized program for Gait Training, and Wheel Chair mobility Inability to transfer - to improve, our physical therapists will perform initial evaluation of pt's status upon admission and devise an individualized program for Bed mobility Need for home safety evaluation - to improve, our physical therapists will perform initial evaluatio n of pt's status upon admission and devise an individualized program for Home Evaluation Need in caregiver upon discharge - to improve, our physical therapists will perform initial evaluati on of pt's status upon admission and devise an individualized program for Caregiver Training Edema - to improve, our physical therapists will perform initial evaluation of pt's status upon admi ssion and devise an individualized program for Elevation Training, and Lymphedema Therapy New precaution - to improve, our physical therapists will perform initial evaluation of pt's status upon admission and devise an individualized program for Patient precaution education Poor balance - to improve, our physical therapists will perform initial evaluation of pt's status up on admission and devise an individualized program for Balance Training Poor endurance - to improve, our physical therapists will perform initial evaluation of pt's status upon admission and devise an individualized program for Endurance Training Weakness - to improve, our physical therapists will perform initial evaluation of pt's status upon a dmission and devise an individualized program for Aquatic Therapy, Neuromuscular Reeducation, and Str engthening Achieving independence - to improve, our physical therapists will perform initial evaluation of pt's status upon admission and devise an individualized program for Community Reintegration Activities - Occupational Therapy ADL deficits - to improve, our occupation therapists will perform initial evaluation of pt's status upon admission and devise an individualized program for Bathing, Bed mobility, Community Reintegratio n, Cooking, Dressing, Eating, Fine Motor Skills, Grooming, Homemaking, Kitchen Mobility, Laundry, Pat ient Education, Safety Awareness, Splinting - Positioning, Transfers(Toilet, Tub, Shower), and Wheel Chair Management Cognitive deficits - to improve, our occupation therapists will perform initial evaluation of pt's s tatus upon admission and devise an individualized program for Cognition - orientation Need for personal care aide - to improve, our occupation therapists will perform initial evaluation of pt's status upon admission and devise an individualized program for Caregiver Training Weakness - to improve, our occupation therapists will perform initial evaluation of pt's status upon admission and devise an individualized program for Aquatic Therapy, Balance, Endurance, UE ROM, and UE strengthening - Diet Type Continue Regular - Diet - Liquid Texture Continue Regular - Tube Feed Continue N/A - Lab Results blood Sugar Check ACHS - Weight Bearing Precaution NWB right LE - Diet - Solid Texture Continue Regular - Shower allowing shower FUNCTIONAL STATUS: UPDATED AT WEEKLY TEAM CONFERENCE - Bladder Same accident frequency: 7-Ind - No accidents in the past 7 days - Bowel Same accident frequency: 7-Ind - No accidents in the past 7 days - Walking Same score based on distance walked: 1(<=50ft) - Wheelchair Same score based on distance traveled: 1(<=50ft) FUNCTIONAL STATUS: - Self-Care A. Eating Ind B. Grooming Ind C. Bathing Ind D. Dressing - Upper Ind E. Dressing - Lower maxA F. Toileting Dep - Sphincter Control G: Bladder control Ind H: Bowel control Ind - Transfers Control I. Bed/Chair/Wheelchair maxA J. Toilet maxA K. Tub/Shower maxA - Locomotion L. Walk/Wheelchair (B) Dep M. Stairs ADNO - Communication N. Comprehension (B) Matty O. Expression (B) Matty - Social Cognition P. Social Interaction Matty Q. Problem Solving modA R. Memory Matty - Endurance Poor - Balance Poor - Safety Awareness Poor CURRENT FUNC. DEFICITS: Transfers Control, Locomotion, Communication, Social Cognition, Endurance, Balance, Safety Awareness, and Self-Care SIGNATURE PANEL: (CDT)
[2018-06-27] MEDS: ATORVASTATIN 40 MG TAB PO SCH (20:33)
[2018-06-27] MEDS: TRESIBA (INSULIN DEGLUDEC) SQ SCH (20:34)
--- NOTE | 2018-06-28 02:58 | FAST ---
SHIFT START DATE/TIME: 06/27/2018 19:00 (CDT) SHIFT END DATE/TIME: 06/28/2018 07:00 (CDT) NAME SARI PERES DATE OF : 1940 DATE OF ADMISSION: 06/17/2018 20:40 (CDT) PHONE: AGE: 77 SSN# [id number] GENDER: Female ENCOUNTER PHYSICIAN: Dr. Huan Pepe M.D. ADMISSION DIAGNOSIS: - Medically Complex Conditions 17 - Other Medically Complex Conditions (17.9) Chronic Kidney Disease. EATING: Activity did not occur on this shift EATING - SCORE: 0-UNK GROOMING: Activity did not occur on this shift GROOMING - SCORE: 0-UNK BATHING: Activity did not occur on this shift BATHING - SCORE: 0-UNK DRESSING - UPPER BODY: Patient is not dressing in public clothing ARTICLES SCORE Total number of steps: 0 DRESSING - UPPER BODY - SCORE: 0-UNK DRESSING - LOWER BODY: Patient is not dressing in public clothing ARTICLES SCORE Total number of steps: 0 DRESSING - LOWER BODY - SCORE: 0-UNK TOILETING: TOILETING - STEP 1: Does the patient require the assistance of a person or device, or need extra time with toileting? Yes . TOILETING - STEP 2: Does the patient require the assistance of a helper? Yes. TOILETING - STEP 3: How much assistance does the patient require from the helper? Hands-on assistance from the helper TOILETING - STEP 4: Of the 3 tasks: 1) Adjusting clothing prior to use, 2) Cleansing of perineal area, 3) Adjusting clot julian after use; How many tasks does the patient perform WITHOUT assistance of the helper? No tasks; h elper performs all three tasks TOILETING - SCORE: 1-DEP BLADDER MANAGEMENT: [place] removes incontinent device (Depends, pull ups, etc.); cleans the patient after accident / inco ntinent episode; and, applies new incontinent device. BLADDER MANAGEMENT - SCORE: 1-DEP BOWEL MANAGEMENT: Activity did not occur on this shift BOWEL MANAGEMENT - SCORE: 7-IND TRANSFERS: BED, CHAIR, WHEELCHAIR: TRANSFERS: BED, CHAIR, WHEELCHAIR - STEP 1: Does the patient require assistance of a person or device, or need extra time with bed, chair, or whe elchair transfers? Yes. TRANSFERS: BED, CHAIR, WHEELCHAIR - STEP 2: Does the patient require the assistance of a helper? Yes. TRANSFERS: BED, CHAIR, WHEELCHAIR - STEP 3: How much assistance does the patient require from the helper? Steadying/guiding assistance TRANSFERS: BED, CHAIR, WHEELCHAIR - SCORE: 4-MIN TRANSFERS: TOILET: TRANSFERS: TOILET - STEP 1: Does the patient require the assistance of a person or device, or need extra time with toilet transfe rs? Yes. TRANSFERS: TOILET - STEP 2: Does the patient require the assistance of a helper? Yes. TRANSFERS: TOILET - STEP 3: How much assistance does the patient require from the helper? Patient performs half or more of the tr ansferring tasks TRANSFERS: TOILET - STEP 4: Does the patient need only incidental help such as contact guard or steadying during toilet transfer? Yes. TRANSFERS: TOILET - SCORE: 4-MIN TRANSFERS: SHOWER: Activity did not occur on this shift TRANSFERS: SHOWER - SCORE: 0-UNK TRANSFERS: TUB: Activity did not occur on this shift TRANSFERS: TUB - SCORE: 0-UNK LOCOMOTION: WALK: Activity did not occur on this shift LOCOMOTION: WALK - SCORE: 0-UNK LOCOMOTION: WHEELCHAIR: Activity did not occur on this shift LOCOMOTION: WHEELCHAIR - SCORE: 0-UNK COMPREHENSION: COMPREHENSION: TYPE: Both COMPREHENSION - STEP 1: Does the patient require help from a person or device, or need extra time to understand complex and a bstract ideas (such as current events, finances, discharge planning, medical issues, relationships, e tc)? No. COMPREHENSION - STEP 2: Does the patient need extra time, require an assistive device (such as glasses for visual comprehensi on or a hearing aid for auditory comprehension) or does s/he have mild difficulty understanding compl ex and abstract information? No. COMPREHENSION - SCORE: 7-IND EXPRESSION EXPRESSION: TYPE: Both EXPRESSION - STEP 1: Does the patient require help from a person or device, or need extra time expressing complex and abst ract ideas (such as current events, finances, discharge planning, medical issues, relationships, etc) ? No. EXPRESSION - STEP 2: Does the patient need extra time, require an assistive device (such as augmentive communication syste m or a communication board), OR does s/he have mild difficulty expressing complex and abstract ideas (including mild dysarthria or mild word-find problems)? No. EXPRESSION - SCORE: 7-IND SOCIAL INTERACTION: SOCIAL INTERACTION - STEP 1: Does the patient require a helper to interact with others in social and therapeutic situations? No. SOCIAL INTERACTION - STEP 2: Does the patient need extra time in social situations, OR does s/he interact with staff, other patien ts, and family members ONLY in structured environments, OR does s/he require medication for social in teraction? No. SOCIAL INTERACTION - SCORE: 7-IND PROBLEM SOLVING: PROBLEM SOLVING - STEP 1: Does the patient need help from a person or device, or need extra time to solve complex problems such as managing a checking account or confronting interpersonal problems? No. PROBLEM SOLVING - STEP 2: Does the patient require extra time to make decisions or solve problems, OR does s/he have slight dif ficulty reading, initiating, or self-correcting in unfamiliar situations? No. PROBLEM SOLVING - SCORE: 7-IND MEMORY: MEMORY - STEP 1: Does the patient need help from a person or device, or need extra time to remember frequently encount ered people, daily routines, and executing requests? No. MEMORY - STEP 2: Does the patient have slight difficulty recognizing frequently encountered people, daily routines, or executing requests without the need for repetition or using self-initiated or environmental cues to remember? No. MEMORY - SCORE: 7-IND SIGNATURE PANEL: The following modified sections: Eating - Score, Grooming - Score, Bathing - Score, Dressing - Upper Body - Score, Dressing - Lower Body - Score, Toileting - Score, Bladder Management - Score, Bowel Man agement - Score, Transfers: Bed, Chair, Wheelchair - Score, Transfers: Toilet - Score, Transfers: Thelma wer - Score, Transfers: Tub - Score, Locomotion: Walk - Score, Locomotion: Wheelchair - Score, Compre hension - Score, Expression - Score, Social Interaction - Score, Problem Solving - Score, Memory - Sc ore were [electronically] signed by Sheryl Randolph CNA on SunJun 28 2018 02:57:40 T-0500 ([place] Da ylight Time)
[2018-06-28] MEDS: METOPROLOL XL 50 MG TAB PO SCH (05:15)
[2018-06-28] MEDS: PANTOPRAZOLE 40MG TABLET PO SCH (07:22)
[2018-06-28] MEDS: INSULIN -REGULAR HUMAN 50 UNIT/0.5 ML ML SQ SCH ×4 (07:30→21:39)
[2018-06-28] MEDS: RAMIPRIL 2.5 MG CAP PO SCH (08:00)
[2018-06-28] MEDS: CHLORTHALIDONE 25 MG TAB PO SCH (08:00)
[2018-06-28] MEDS: LIDOCAINE 5% PATCH TOP SCH (09:15)
[2018-06-28] MEDS: NYSTATIN PWDR 100000 UNIT/GM TOP SCH ×2 (09:15→19:57)
[2018-06-28] MEDS: FERROUS SULFATE 325 MG TAB PO SCH ×3 (09:18→23:13)
[2018-06-28] MEDS: ANASTROZOLE 1 MG TAB PO SCH (09:18)
[2018-06-28] MEDS: CITALOPRAM 10 MG TABLET PO SCH (09:19)
[2018-06-28] MEDS: ASPIRIN 81 MG CHEWABLE TABLET PO SCH (09:19)
[2018-06-28] MEDS: MAGNESIUM OXIDE 400 MG TAB PO SCH ×2 (09:19→19:55)
--- NOTE | 2018-06-28 09:56 | P.RH.PN ---
Estimated Length of Stay: 16 Expected Discharge Date: 07/02/18 Discharge Disposition Plan: Home Family Support: Yes [facility] Goal: Mobility, Transfers, Self Care Vital Signs: Last Vital Signs Temp 97.4 F 06/28/18 07:15 Pulse 55 06/28/18 07:15 Resp 16 06/28/18 07:15 BP 126/55 L 06/28/18 07:15 Pulse Ox 93 06/28/18 07:15 Laboratory: Laboratory Last Values WBC 7.5 K/uL (4.3-10.9) 06/27/18 06:13 RBC 3.49 M/uL (3.86-4.86) L 06/27/18 06:13 Hgb 10.6 g/dL (12.0-15.0) L 06/27/18 06:13 Hct 32.5 % (36.0-45.0) L 06/27/18 06:13 MCV 93.1 fL (80-100) 06/27/18 06:13 MCH 30.3 pg (27.0-35.0) 06/27/18 06:13 MCHC 32.5 g/dL (32.0-36.0) 06/27/18 06:13 RDW 15.0 % (12.1-15.2) 06/27/18 06:13 Plt Count 249 K/uL (152-406) 06/27/18 06:13 MPV 9.4 fL (7.6-11.3) 06/27/18 06:13 Neutrophils % 57.3 % (41.7-73.7) 06/27/18 06:13 Lymphocytes % 29.7 % (15.3-44.8) 06/27/18 06:13 Monocytes % 5.9 % (3.3-12.3) 06/27/18 06:13 Eosinophils % 6.2 % (0-4.4) H 06/27/18 06:13 Basophils % 0.9 % (0-1.3) 06/27/18 06:13 Absolute Neutrophils 4.3 K/uL (1.8-8.0) 06/27/18 06:13 Absolute Lymphocytes 2.2 K/uL (0.7-4.9) 06/27/18 06:13 Absolute Monocytes 0.4 K/uL (0.1-1.3) 06/27/18 06:13 Absolute Eosinophils 0.5 K/uL (0-0.5) 06/27/18 06:13 Absolute Basophils 0.1 K/uL (0-0.5) 06/27/18 06:13 PT 44.7 SECONDS (9.5-12.5) H 06/28/18 05:47 INR 4.00 06/28/18 05:47 Sodium 144 mmol/L (136-145) 06/27/18 06:13 Potassium 4.9 mmol/L (3.5-5.1) 06/27/18 06:13 Chloride 113 mmol/L (98-107) H 06/27/18 06:13 Carbon Dioxide 24 mmol/L (21-32) 06/27/18 06:13 BUN 80 mg/dL (7-18) H D 06/27/18 06:13 Creatinine 2.30 mg/dL (0.55-1.3) H 06/27/18 06:13 Estimated GFR 21 mL/min (=/>90) L 06/27/18 06:13 Glucose 80 mg/dL (74-106) 06/27/18 06:13 POC Glucose 93 mg/dl (65-120) 06/28/18 08:37 Calcium 8.9 mg/dL (8.5-10.1) 06/27/18 06:13 Magnesium 2.0 mg/dL (1.8-2.4) 06/18/18 05:33 Albumin 3.0 g/dL (3.4-5.0) L 06/27/18 06:13 Prealbumin 16.7 mg/dL (20-40) L 06/27/18 06:13 Weight: 177 lb 8 oz Wound Present: Yes Closed Surgical Incision Present: No Negative Pressure Wound Therapy Present: No Physician Update: Her labs have been reviewed and are stable. Hgb 10.6, INR now 2.2 to 4.0. She has cognitive issues and language barrier resulting in poor decision making and she may require 24 supervision. She ambulates 120' to 130' with minimum assistance using a rolling walker. She has a rollator and wheelchair at home. Medical Issues: Coumadin 2mg daily PO Pain Issues: Tramadol 50mg Q6H PRN Functional Improvement: pt has demonstrated progress with functional mobility. pt is able to perform functional mobility and activity with Lisa. She is limited on her tolerance to ambulation and she continually fatigues around 100'- 140'. pt is on track for her intended discharge date. Functional Improvement Occupational Therapy: pt has great potential at reaching the STG's and the LTG's cont to address pt's adl tasks and overall weakness by increasing pt's UB strength/static/dynamic standing balance for adl and functional tasks. Cont to provide v/c's for follow through and safety while completing functional transfers and for adl tasks. Cont with the POC and the goals by the supervising OTR. Speech Therapy Update: Pt. is at [facility] for Auditory Comprehension and Social Interaction and requires MIN A for Verbal Expression, Problem Solving, and Memory. It is difficult to determine if pt.'s deficits are a true underlying cognitive deficit, a language barrier, or lack of education; however, pt. needs a lot of reminders and will require 24 hour supervision upon D/C. Summary: Patient's care plan and manager long term care goals have been reviewed and revised as necessary. Please see the Rehabilitation Signature page for all necessary signatures.
--- NOTE | 2018-06-28 15:20 | FAST ---
ENCOUNTER DATE AND TIME: 06/28/2018 08:00 (CDT) NAME SARI PERES DATE OF : 1940 DATE OF ADMISSION: 06/17/2018 20:40 (CDT) PHONE: AGE: 77 SSN# [id number] GENDER: Female ENCOUNTER PHYSICIAN: Dr. Huan Pepe M.D. ADMISSION DIAGNOSIS: - Medically Complex Conditions 17 - Other Medically Complex Conditions (17.9) Chronic Kidney Disease. EATING: Activity did not occur on this shift EATING - SCORE: 0-UNK GROOMING: Activity did not occur on this shift GROOMING - SCORE: 0-UNK BATHING: Activity did not occur on this shift BATHING - SCORE: 0-UNK DRESSING - UPPER BODY: Activity did not occur on this shift Patient is not dressing in public clothing ARTICLES SCORE Total number of steps: 0 DRESSING - UPPER BODY - SCORE: 0-UNK DRESSING - LOWER BODY: Activity did not occur on this shift Patient is not dressing in public clothing ARTICLES SCORE Total number of steps: 0 DRESSING - LOWER BODY - SCORE: 0-UNK TOILETING: Activity did not occur on this shift TOILETING - SCORE: 0-UNK BLADDER MANAGEMENT: Activity did not occur on this shift BLADDER MANAGEMENT - SCORE: 7-IND BOWEL MANAGEMENT: Activity did not occur on this shift BOWEL MANAGEMENT - SCORE: 7-IND TRANSFERS: BED, CHAIR, WHEELCHAIR: TRANSFERS: BED, CHAIR, WHEELCHAIR - STEP 1: Does the patient require assistance of a person or device, or need extra time with bed, chair, or whe elchair transfers? Yes. TRANSFERS: BED, CHAIR, WHEELCHAIR - STEP 2: Does the patient require the assistance of a helper? No. Patient only requires an assistive device fo r bed, chair, wheelchair transfers such as a sliding board, grab bar, or brace, OR s/he takes more th an reasonable time, OR there is a safety concern when s/he performs the transfers TRANSFERS: BED, CHAIR, WHEELCHAIR - SCORE: 6-RONEN TRANSFERS: TOILET: Activity did not occur on this shift TRANSFERS: TOILET - SCORE: 0-UNK TRANSFERS: SHOWER: Activity did not occur on this shift TRANSFERS: SHOWER - SCORE: 0-UNK TRANSFERS: TUB: Activity did not occur on this shift TRANSFERS: TUB - SCORE: 0-UNK LOCOMOTION: WALK: LOCOMOTION: WALK - STEP 1: Does the patient need help from a person or device, or need extra time to walk 150 feet? Yes. LOCOMOTION: WALK - STEP 2: How much assistance does the patient require to walk a minimum of 150 feet? Only supervision, cuing, or coaxing LOCOMOTION: WALK - SCORE: 5-SUP LOCOMOTION: WHEELCHAIR: LOCOMOTION: WHEELCHAIR - STEP 1: Does the patient need help to go 150 feet in a wheelchair? No. LOCOMOTION: WHEELCHAIR - SCORE: 6-RONEN LOCOMOTION: STAIRS: LOCOMOTION: STAIRS - STEP 1: Does the patient need help to go up and down 12 to 14 stairs? Yes. LOCOMOTION: STAIRS - STEP 2: How much assistance does the patient need from the helper to go a minimum of 12 to 14 stairs? Only peralta pervision, cuing, or coaxing LOCOMOTION: STAIRS - SCORE: 5-SUP COMPREHENSION: COMPREHENSION - SCORE: 0-UNK EXPRESSION EXPRESSION - SCORE: 0-UNK SOCIAL INTERACTION: SOCIAL INTERACTION - SCORE: 0-UNK PROBLEM SOLVING: PROBLEM SOLVING - SCORE: 0-UNK MEMORY: MEMORY - SCORE: 0-UNK SIGNATURE PANEL: The following modified sections: Transfers: Bed, Chair, Wheelchair - Score, Transfers: Toilet - Score , Locomotion: Walk - Score, Locomotion: Wheelchair - Score, Locomotion: Stairs - Score were [brenda patton] signed by Josue Novak PTA on SunJun 28 2018 15:19:47 GMT-0500 ([place] Daylight Time)
[2018-06-28] MEDS: WARFARIN SODIUM 2 MG TAB PO SCH (15:37)
--- NOTE | 2018-06-28 18:00 | FAST ---
SHIFT START DATE/TIME: 06/28/2018 07:00 (CDT) SHIFT END DATE/TIME: 06/28/2018 19:00 (CDT) NAME SARI PERES DATE OF : 1940 DATE OF ADMISSION: 06/17/2018 20:40 (CDT) PHONE: AGE: 77 SSN# [id number] GENDER: Female ENCOUNTER PHYSICIAN: Dr. Huan Pepe M.D. ADMISSION DIAGNOSIS: - Medically Complex Conditions 17 - Other Medically Complex Conditions (17.9) Chronic Kidney Disease. EATING: EATING - STEP 1: Does the patient require the assistance of a person or device, or need extra time when eating? Yes. EATING - STEP 2: Does the patient require the assistance of a helper? No, patient only requires an assistive device, O R s/he takes more than reasonable time to eat, OR there is a safety concern, OR s/he requires modifie d food consistency EATING - SCORE: 6-RONEN GROOMING: Comb/brush hair Oral care GROOMING - STEP 1: Does the patient require the assistance of a person or device, or need extra time when grooming? Yes. GROOMING - STEP 2: Does the patient require the assistance of a helper? No. The patient only requires an assistive devic e, OR takes more than reasonable time to groom, OR there is a concern for safety as the patient groom s GROOMING - SCORE: 6-RONEN BATHING: Activity did not occur on this shift BATHING - SCORE: 0-UNK DRESSING - UPPER BODY: T-shirt/pullover shirt (four steps) ARTICLES SCORE Total number of steps: 4 DRESSING - UPPER BODY - STEP 1: Does the patient require help from a person or device, or need extra time when dressing above the [address]? Yes. DRESSING - UPPER BODY - STEP 2: Does the patient require the assistance of a helper? Yes. DRESSING - UPPER BODY - STEP 3: Does the helper touch the patient while dressing? No. DRESSING - UPPER BODY - SCORE: 5-SUP DRESSING - LOWER BODY: Elastic waist pants (three steps) Underwear (three steps) ARTICLES SCORE Total number of steps: 6 DRESSING - LOWER BODY - STEP 1: Does the patient require help from a person or device, or need extra time when dressing below the [address]? Yes. DRESSING - LOWER BODY - STEP 2: Does the patient require the assistance of a helper? Yes. DRESSING - LOWER BODY - STEP 3: Does the helper touch the patient while dressing? Yes. DRESSING - LOWER BODY - STEP 4: How many of the total steps does the patient complete on his/her own? 4 DRESSING - LOWER BODY - SCORE: 3-MOD TOILETING: TOILETING - STEP 1: Does the patient require the assistance of a person or device, or need extra time with toileting? Yes . TOILETING - STEP 2: Does the patient require the assistance of a helper? Yes. TOILETING - STEP 3: How much assistance does the patient require from the helper? Hands-on assistance from the helper TOILETING - STEP 4: Of the 3 tasks: 1) Adjusting clothing prior to use, 2) Cleansing of perineal area, 3) Adjusting clot julian after use; How many tasks does the patient perform WITHOUT assistance of the helper? Two tasks TOILETING - SCORE: 3-MOD BLADDER MANAGEMENT: Simon removes incontinent device (Depends, pull ups, etc.); cleans the patient after accident / inco ntinent episode; and, applies new incontinent device. BLADDER MANAGEMENT - SCORE: 1-DEP BLADDER MANAGEMENT - FREQUENCY OF ACCIDENTS: BLADDER MANAGEMENT(FA) - STEP 1: How many accidents has the patient had during the current shift? 2 BOWEL MANAGEMENT: BOWEL MANAGEMENT - STEP 1: Does the patient control bowels completely and intentionally without equipment devices or medications AND is always continent? Yes. BOWEL MANAGEMENT - SCORE: 7-IND BOWEL MANAGEMENT - FREQUENCY OF ACCIDENTS: BOWEL MANAGEMENT(FA) - STEP 1: How many accidents has the patient had during the current shift? 0 TRANSFERS: BED, CHAIR, WHEELCHAIR: TRANSFERS: BED, CHAIR, WHEELCHAIR - STEP 1: Does the patient require assistance of a person or device, or need extra time with bed, chair, or whe elchair transfers? Yes. TRANSFERS: BED, CHAIR, WHEELCHAIR - STEP 2: Does the patient require the assistance of a helper? Yes. TRANSFERS: BED, CHAIR, WHEELCHAIR - STEP 3: How much assistance does the patient require from the helper? Steadying/guiding assistance TRANSFERS: BED, CHAIR, WHEELCHAIR - SCORE: 4-MIN TRANSFERS: TOILET: TRANSFERS: TOILET - STEP 1: Does the patient require the assistance of a person or device, or need extra time with toilet transfe rs? Yes. TRANSFERS: TOILET - STEP 2: Does the patient require the assistance of a helper? Yes. TRANSFERS: TOILET - STEP 3: How much assistance does the patient require from the helper? Patient performs half or more of the tr ansferring tasks TRANSFERS: TOILET - STEP 4: Does the patient need only incidental help such as contact guard or steadying during toilet transfer? Yes. TRANSFERS: TOILET - SCORE: 4-MIN TRANSFERS: SHOWER: Activity did not occur on this shift TRANSFERS: SHOWER - SCORE: 0-UNK TRANSFERS: TUB: Activity did not occur on this shift TRANSFERS: TUB - SCORE: 0-UNK LOCOMOTION: WALK: Activity did not occur on this shift LOCOMOTION: WALK - SCORE: 0-UNK LOCOMOTION: WHEELCHAIR: Activity did not occur on this shift LOCOMOTION: WHEELCHAIR - SCORE: 0-UNK COMPREHENSION: COMPREHENSION - SCORE: 0-UNK EXPRESSION EXPRESSION - SCORE: 0-UNK SOCIAL INTERACTION: SOCIAL INTERACTION - SCORE: 0-UNK PROBLEM SOLVING: PROBLEM SOLVING - SCORE: 0-UNK MEMORY: MEMORY - SCORE: 0-UNK SIGNATURE PANEL: The following modified sections: Eating - Score, Grooming - Score, Bathing - Score, Dressing - Upper Body - Score, Dressing - Lower Body - Score, Toileting - Score, Bladder Management - Score, Bowel Man agement - Score, Transfers: Bed, Chair, Wheelchair - Score, Transfers: Toilet - Score, Transfers: Thelma wer - Score, Transfers: Tub - Score, Locomotion: Walk - Score, Locomotion: Wheelchair - Score, Compre hension - Score, Expression - Score, Social Interaction - Score, Problem Solving - Score, Memory - Sc ore were [electronically] signed by Natalie Landa CNA on SunJun 28 2018 17:59:30 GMT-0500 ([place] Day[place])
[2018-06-28] MEDS: PROMOD 30 ML DOSE PO SCH ×2 (19:55→19:58)
[2018-06-28] MEDS: ATORVASTATIN 40 MG TAB PO SCH (21:00)
[2018-06-28] MEDS: TRESIBA (INSULIN DEGLUDEC) SQ SCH (21:38)
--- NOTE | 2018-06-29 02:36 | FAST ---
SHIFT START DATE/TIME: 06/28/2018 19:00 (CDT) SHIFT END DATE/TIME: 06/29/2018 07:00 (CDT) NAME SARI PERES DATE OF : 1940 DATE OF ADMISSION: 06/17/2018 20:40 (CDT) PHONE: AGE: 77 SSN# [id number] GENDER: Female ENCOUNTER PHYSICIAN: Dr. Huan Pepe M.D. ADMISSION DIAGNOSIS: - Medically Complex Conditions 17 - Other Medically Complex Conditions (17.9) Chronic Kidney Disease. EATING: Activity did not occur on this shift EATING - SCORE: 0-UNK GROOMING: Activity did not occur on this shift GROOMING - SCORE: 0-UNK BATHING: Activity did not occur on this shift BATHING - SCORE: 0-UNK DRESSING - UPPER BODY: Patient is not dressing in public clothing ARTICLES SCORE Total number of steps: 0 DRESSING - UPPER BODY - SCORE: 0-UNK DRESSING - LOWER BODY: Patient is not dressing in public clothing ARTICLES SCORE Total number of steps: 0 DRESSING - LOWER BODY - SCORE: 0-UNK TOILETING: TOILETING - STEP 1: Does the patient require the assistance of a person or device, or need extra time with toileting? Yes . TOILETING - STEP 2: Does the patient require the assistance of a helper? Yes. TOILETING - STEP 3: How much assistance does the patient require from the helper? Hands-on assistance from the helper TOILETING - STEP 4: Of the 3 tasks: 1) Adjusting clothing prior to use, 2) Cleansing of perineal area, 3) Adjusting clot julian after use; How many tasks does the patient perform WITHOUT assistance of the helper? Two tasks TOILETING - SCORE: 3-MOD BLADDER MANAGEMENT: BLADDER MANAGEMENT - STEP 1: Does the patient control the bladder completely and intentionally without equipment or devices or med ications, and is always continent? No. BLADDER MANAGEMENT - STEP 2: Does the patient require the assistance of a helper? Yes. BLADDER MANAGEMENT - STEP 3: How much assistance does the patient require from the helper? Patient requires contact assistance fro m the helper BLADDER MANAGEMENT - STEP 4: How much contact assistance does the patient require from the helper? Patient requires minimal assist ance to maintain an external device - by positioning, and the patient performs 75% or more of bladder management tasks, while the helper provides less than 25% of the assistance to position patient on / off bedpan BLADDER MANAGEMENT - SCORE: 4-MIN BOWEL MANAGEMENT: Activity did not occur on this shift BOWEL MANAGEMENT - SCORE: 7-IND TRANSFERS: BED, CHAIR, WHEELCHAIR: TRANSFERS: BED, CHAIR, WHEELCHAIR - STEP 1: Does the patient require assistance of a person or device, or need extra time with bed, chair, or whe elchair transfers? Yes. TRANSFERS: BED, CHAIR, WHEELCHAIR - STEP 2: Does the patient require the assistance of a helper? Yes. TRANSFERS: BED, CHAIR, WHEELCHAIR - STEP 3: How much assistance does the patient require from the helper? Lifting of the legs TRANSFERS: BED, CHAIR, WHEELCHAIR - STEP 4: How many legs does the patient require the helper to lift? both legs TRANSFERS: BED, CHAIR, WHEELCHAIR - SCORE: 3-MOD TRANSFERS: TOILET: TRANSFERS: TOILET - STEP 1: Does the patient require the assistance of a person or device, or need extra time with toilet transfe rs? Yes. TRANSFERS: TOILET - STEP 2: Does the patient require the assistance of a helper? Yes. TRANSFERS: TOILET - STEP 3: How much assistance does the patient require from the helper? Patient performs half or more of the tr ansferring tasks TRANSFERS: TOILET - STEP 4: Does the patient need only incidental help such as contact guard or steadying during toilet transfer? No. Patient needs more than incidental help TRANSFERS: TOILET - SCORE: 3-MOD TRANSFERS: SHOWER: Activity did not occur on this shift TRANSFERS: SHOWER - SCORE: 0-UNK TRANSFERS: TUB: Activity did not occur on this shift TRANSFERS: TUB - SCORE: 0-UNK LOCOMOTION: WALK: Activity did not occur on this shift LOCOMOTION: WALK - SCORE: 0-UNK LOCOMOTION: WHEELCHAIR: Activity did not occur on this shift LOCOMOTION: WHEELCHAIR - SCORE: 0-UNK COMPREHENSION: COMPREHENSION: TYPE: Both COMPREHENSION - STEP 1: Does the patient require help from a person or device, or need extra time to understand complex and a bstract ideas (such as current events, finances, discharge planning, medical issues, relationships, e tc)? No. COMPREHENSION - STEP 2: Does the patient need extra time, require an assistive device (such as glasses for visual comprehensi on or a hearing aid for auditory comprehension) or does s/he have mild difficulty understanding compl ex and abstract information? Yes. COMPREHENSION - SCORE: 6-RONEN EXPRESSION EXPRESSION: TYPE: Both EXPRESSION - STEP 1: Does the patient require help from a person or device, or need extra time expressing complex and abst ract ideas (such as current events, finances, discharge planning, medical issues, relationships, etc) ? No. EXPRESSION - STEP 2: Does the patient need extra time, require an assistive device (such as augmentive communication syste m or a communication board), OR does s/he have mild difficulty expressing complex and abstract ideas (including mild dysarthria or mild word-find problems)? Yes. EXPRESSION - SCORE: 6-RONEN SOCIAL INTERACTION: SOCIAL INTERACTION - STEP 1: Does the patient require a helper to interact with others in social and therapeutic situations? No. SOCIAL INTERACTION - STEP 2: Does the patient need extra time in social situations, OR does s/he interact with staff, other patien ts, and family members ONLY in structured environments, OR does s/he require medication for social in teraction? Yes, patient needs extra time SOCIAL INTERACTION - SCORE: 6-RONEN PROBLEM SOLVING: PROBLEM SOLVING - STEP 1: Does the patient need help from a person or device, or need extra time to solve complex problems such as managing a checking account or confronting interpersonal problems? Yes. PROBLEM SOLVING - STEP 2: Does the patient solve basic routine problems half or more of the time? Yes. PROBLEM SOLVING - STEP 3: How often does the patient need help to solve basic routine problems? Less than 10% of the time PROBLEM SOLVING - SCORE: 5-SUP MEMORY: MEMORY - STEP 1: Does the patient need help from a person or device, or need extra time to remember frequently encount ered people, daily routines, and executing requests? Yes. MEMORY - STEP 2: How often does the patient need help to remember frequently encountered people, daily routines, and e xecuting requests? Less than 10% of the time MEMORY - SCORE: 5-SUP
[2018-06-29] MEDS: METOPROLOL XL 50 MG TAB PO SCH (05:15)
[2018-06-29] MEDS: PANTOPRAZOLE 40MG TABLET PO SCH (06:30)
[2018-06-29 06:43] LABS: Protime INR 3.76
[2018-06-29] MEDS: INSULIN -REGULAR HUMAN 50 UNIT/0.5 ML ML SQ SCH ×4 (07:30→21:00)
[2018-06-29] MEDS: PROMOD 30 ML DOSE PO SCH ×2 (08:00→20:00)
[2018-06-29] MEDS: NYSTATIN PWDR 100000 UNIT/GM TOP SCH ×2 (08:00→21:19)
[2018-06-29] MEDS: FERROUS SULFATE 325 MG TAB PO SCH ×3 (08:14→21:18)
[2018-06-29] MEDS: CITALOPRAM 10 MG TABLET PO SCH (08:14)
[2018-06-29] MEDS: RAMIPRIL 2.5 MG CAP PO SCH (08:14)
[2018-06-29] MEDS: ASPIRIN 81 MG CHEWABLE TABLET PO SCH (08:15)
[2018-06-29] MEDS: LIDOCAINE 5% PATCH TOP SCH (08:15)
[2018-06-29] MEDS: CHLORTHALIDONE 25 MG TAB PO SCH (08:15)
[2018-06-29] MEDS: MAGNESIUM OXIDE 400 MG TAB PO SCH ×2 (08:15→21:19)
[2018-06-29] MEDS: ANASTROZOLE 1 MG TAB PO SCH (08:15)
--- NOTE | 2018-06-29 14:53 | FAST ---
SHIFT START DATE/TIME: 06/29/2018 07:00 (CDT) SHIFT END DATE/TIME: 06/29/2018 19:00 (CDT) NAME SARI PERES DATE OF : 1940 DATE OF ADMISSION: 06/17/2018 20:40 (CDT) PHONE: AGE: 77 SSN# [id number] GENDER: Female ENCOUNTER PHYSICIAN: Dr. Huan Pepe M.D. ADMISSION DIAGNOSIS: - Medically Complex Conditions 17 - Other Medically Complex Conditions (17.9) Chronic Kidney Disease. EATING: EATING - STEP 1: Does the patient require the assistance of a person or device, or need extra time when eating? Yes. EATING - STEP 2: Does the patient require the assistance of a helper? Yes. EATING - STEP 3: Does the patient perform half or more of the eating tasks? Yes. EATING - STEP 4: Does the patient need only supervision, cuing, coaxing OR help to apply an orthosis OR help to cut fo od, open containers, pour liquids, or butter bread? Yes. EATING - SCORE: 5-SUP GROOMING: Comb/brush hair Oral care Wash, rinse, and dry face GROOMING - STEP 1: Does the patient require the assistance of a person or device, or need extra time when grooming? Yes. GROOMING - STEP 2: Does the patient require the assistance of a helper? No. The patient only requires an assistive devic e, OR takes more than reasonable time to groom, OR there is a concern for safety as the patient groom s GROOMING - SCORE: 6-RONEN BATHING: Activity did not occur on this shift BATHING - SCORE: 0-UNK DRESSING - UPPER BODY: T-shirt/pullover shirt (four steps) ARTICLES SCORE Total number of steps: 4 DRESSING - UPPER BODY - STEP 1: Does the patient require help from a person or device, or need extra time when dressing above the [address]? Yes. DRESSING - UPPER BODY - STEP 2: Does the patient require the assistance of a helper? Yes. DRESSING - UPPER BODY - STEP 3: Does the helper touch the patient while dressing? No. DRESSING - UPPER BODY - SCORE: 5-SUP DRESSING - LOWER BODY: Elastic waist pants (three steps) Underwear (three steps) ARTICLES SCORE Total number of steps: 6 DRESSING - LOWER BODY - STEP 1: Does the patient require help from a person or device, or need extra time when dressing below the [address]? Yes. DRESSING - LOWER BODY - STEP 2: Does the patient require the assistance of a helper? Yes. DRESSING - LOWER BODY - STEP 3: Does the helper touch the patient while dressing? Yes. DRESSING - LOWER BODY - STEP 4: How many of the total steps does the patient complete on his/her own? 0 DRESSING - LOWER BODY - STEP 5: Does patient require total assistance for dressing below the waist such as the helper holding clothin g and performing basically all the activities? Yes. DRESSING - LOWER BODY - SCORE: 1-DEP TOILETING: TOILETING - STEP 1: Does the patient require the assistance of a person or device, or need extra time with toileting? Yes . TOILETING - STEP 2: Does the patient require the assistance of a helper? Yes. TOILETING - STEP 3: How much assistance does the patient require from the helper? Hands-on assistance from the helper TOILETING - STEP 4: Of the 3 tasks: 1) Adjusting clothing prior to use, 2) Cleansing of perineal area, 3) Adjusting clot julian after use; How many tasks does the patient perform WITHOUT assistance of the helper? Three tasks with steadying assistance from the helper TOILETING - SCORE: 4-MIN BLADDER MANAGEMENT: BLADDER MANAGEMENT - STEP 1: Does the patient control the bladder completely and intentionally without equipment or devices or med ications, and is always continent? No. BLADDER MANAGEMENT - STEP 2: Does the patient require the assistance of a helper? Yes. BLADDER MANAGEMENT - STEP 3: How much assistance does the patient require from the helper? Only supervision, stand-by, cuing, or c oaxing BLADDER MANAGEMENT - SCORE: 5-SUP BLADDER MANAGEMENT - FREQUENCY OF ACCIDENTS: BLADDER MANAGEMENT(FA) - STEP 1: How many accidents has the patient had during the current shift? 2 BOWEL MANAGEMENT: Activity did not occur on this shift BOWEL MANAGEMENT - SCORE: 7-IND BOWEL MANAGEMENT - FREQUENCY OF ACCIDENTS: BOWEL MANAGEMENT(FA) - STEP 1: How many accidents has the patient had during the current shift? 0 TRANSFERS: BED, CHAIR, WHEELCHAIR: TRANSFERS: BED, CHAIR, WHEELCHAIR - STEP 1: Does the patient require assistance of a person or device, or need extra time with bed, chair, or whe elchair transfers? Yes. TRANSFERS: BED, CHAIR, WHEELCHAIR - STEP 2: Does the patient require the assistance of a helper? Yes. TRANSFERS: BED, CHAIR, WHEELCHAIR - STEP 3: How much assistance does the patient require from the helper? Steadying/guiding assistance TRANSFERS: BED, CHAIR, WHEELCHAIR - SCORE: 4-MIN TRANSFERS: TOILET: TRANSFERS: TOILET - STEP 1: Does the patient require the assistance of a person or device, or need extra time with toilet transfe rs? Yes. TRANSFERS: TOILET - STEP 2: Does the patient require the assistance of a helper? Yes. TRANSFERS: TOILET - STEP 3: How much assistance does the patient require from the helper? Patient performs half or more of the tr ansferring tasks TRANSFERS: TOILET - STEP 4: Does the patient need only incidental help such as contact guard or steadying during toilet transfer? Yes. TRANSFERS: TOILET - SCORE: 4-MIN TRANSFERS: SHOWER: Activity did not occur on this shift TRANSFERS: SHOWER - SCORE: 0-UNK TRANSFERS: TUB: Activity did not occur on this shift TRANSFERS: TUB - SCORE: 0-UNK LOCOMOTION: WALK: Activity did not occur on this shift LOCOMOTION: WALK - SCORE: 0-UNK LOCOMOTION: WHEELCHAIR: LOCOMOTION: WHEELCHAIR - STEP 1: Does the patient need help to go 150 feet in a wheelchair? Yes. LOCOMOTION: WHEELCHAIR - STEP 2: How much assistance does the patient need from the helper? Only supervision, cuing, or coaxing LOCOMOTION: WHEELCHAIR - SCORE: 5-SUP COMPREHENSION: COMPREHENSION: TYPE: Both COMPREHENSION - STEP 1: Does the patient require help from a person or device, or need extra time to understand complex and a bstract ideas (such as current events, finances, discharge planning, medical issues, relationships, e tc)? No. COMPREHENSION - STEP 2: Does the patient need extra time, require an assistive device (such as glasses for visual comprehensi on or a hearing aid for auditory comprehension) or does s/he have mild difficulty understanding compl ex and abstract information? Yes. COMPREHENSION - SCORE: 6-RONEN EXPRESSION EXPRESSION: TYPE: Both EXPRESSION - STEP 1: Does the patient require help from a person or device, or need extra time expressing complex and abst ract ideas (such as current events, finances, discharge planning, medical issues, relationships, etc) ? No. EXPRESSION - STEP 2: Does the patient need extra time, require an assistive device (such as augmentive communication syste m or a communication board), OR does s/he have mild difficulty expressing complex and abstract ideas (including mild dysarthria or mild word-find problems)? Yes. EXPRESSION - SCORE: 6-RONEN SOCIAL INTERACTION: SOCIAL INTERACTION - STEP 1: Does the patient require a helper to interact with others in social and therapeutic situations? Yes. SOCIAL INTERACTION - STEP 2: Does the patient interact appropriately half or more of the time? Yes. SOCIAL INTERACTION - STEP 3: How often does the patient need help to interact appropriately? Less than 10% of the time SOCIAL INTERACTION - SCORE: 5-SUP PROBLEM SOLVING: PROBLEM SOLVING - STEP 1: Does the patient need help from a person or device, or need extra time to solve complex problems such as managing a checking account or confronting interpersonal problems? Yes. PROBLEM SOLVING - STEP 2: Does the patient solve basic routine problems half or more of the time? Yes. PROBLEM SOLVING - STEP 3: How often does the patient need help to solve basic routine problems? Less than 10% of the time PROBLEM SOLVING - SCORE: 5-SUP MEMORY: MEMORY - STEP 1: Does the patient need help from a person or device, or need extra time to remember frequently encount ered people, daily routines, and executing requests? Yes. MEMORY - STEP 2: How often does the patient need help to remember frequently encountered people, daily routines, and e xecuting requests? Less than 10% of the time MEMORY - SCORE: 5-SUP SIGNATURE PANEL: The following modified sections: Eating - Score, Grooming - Score, Bathing - Score, Dressing - Upper Body - Score, Dressing - Lower Body - Score, Toileting - Score, Bladder Management - Score, Bowel Man agement - Score, Transfers: Bed, Chair, Wheelchair - Score, Transfers: Toilet - Score, Transfers: Thelma wer - Score, Transfers: Tub - Score, Locomotion: Walk - Score, Locomotion: Wheelchair - Score, Compre hension - Score, Expression - Score, Social Interaction - Score, Problem Solving - Score, Memory - Sc ore were [electronically] signed by Nataly Watt C.N.A. on SunJun 29 2018 14:52:59 T-0500 (Centra l Daylight Time)
[2018-06-29] MEDS: ATORVASTATIN 40 MG TAB PO SCH (21:18)
[2018-06-29] MEDS: TRESIBA (INSULIN DEGLUDEC) SQ SCH (21:19)
--- NOTE | 2018-06-30 01:34 | FAST ---
SHIFT START DATE/TIME: 06/29/2018 19:00 (CDT) SHIFT END DATE/TIME: 06/30/2018 07:00 (CDT) NAME SARI PERES DATE OF : 1940 DATE OF ADMISSION: 06/17/2018 20:40 (CDT) PHONE: AGE: 77 SSN# [id number] GENDER: Female ENCOUNTER PHYSICIAN: Dr. Huan Pepe M.D. ADMISSION DIAGNOSIS: - Medically Complex Conditions 17 - Other Medically Complex Conditions (17.9) Chronic Kidney Disease. EATING: Activity did not occur on this shift EATING - SCORE: 0-UNK GROOMING: Activity did not occur on this shift GROOMING - SCORE: 0-UNK BATHING: Activity did not occur on this shift BATHING - SCORE: 0-UNK DRESSING - UPPER BODY: Patient is not dressing in public clothing ARTICLES SCORE Total number of steps: 0 DRESSING - UPPER BODY - SCORE: 0-UNK DRESSING - LOWER BODY: Patient is not dressing in public clothing ARTICLES SCORE Total number of steps: 0 DRESSING - LOWER BODY - SCORE: 0-UNK TOILETING: TOILETING - STEP 1: Does the patient require the assistance of a person or device, or need extra time with toileting? Yes . TOILETING - STEP 2: Does the patient require the assistance of a helper? Yes. TOILETING - STEP 3: How much assistance does the patient require from the helper? Hands-on assistance from the helper TOILETING - STEP 4: Of the 3 tasks: 1) Adjusting clothing prior to use, 2) Cleansing of perineal area, 3) Adjusting clot julian after use; How many tasks does the patient perform WITHOUT assistance of the helper? One task TOILETING - SCORE: 2-MAX BLADDER MANAGEMENT: [place] removes incontinent device (Depends, pull ups, etc.); cleans the patient after accident / inco ntinent episode; and, applies new incontinent device. BLADDER MANAGEMENT - SCORE: 1-DEP BOWEL MANAGEMENT: Activity did not occur on this shift BOWEL MANAGEMENT - SCORE: 7-IND TRANSFERS: BED, CHAIR, WHEELCHAIR: TRANSFERS: BED, CHAIR, WHEELCHAIR - STEP 1: Does the patient require assistance of a person or device, or need extra time with bed, chair, or whe elchair transfers? Yes. TRANSFERS: BED, CHAIR, WHEELCHAIR - STEP 2: Does the patient require the assistance of a helper? Yes. TRANSFERS: BED, CHAIR, WHEELCHAIR - STEP 3: How much assistance does the patient require from the helper? Steadying/guiding assistance TRANSFERS: BED, CHAIR, WHEELCHAIR - SCORE: 4-MIN TRANSFERS: TOILET: TRANSFERS: TOILET - STEP 1: Does the patient require the assistance of a person or device, or need extra time with toilet transfe rs? Yes. TRANSFERS: TOILET - STEP 2: Does the patient require the assistance of a helper? Yes. TRANSFERS: TOILET - STEP 3: How much assistance does the patient require from the helper? Patient performs half or more of the tr ansferring tasks TRANSFERS: TOILET - STEP 4: Does the patient need only incidental help such as contact guard or steadying during toilet transfer? Yes. TRANSFERS: TOILET - SCORE: 4-MIN TRANSFERS: SHOWER: Activity did not occur on this shift TRANSFERS: SHOWER - SCORE: 0-UNK TRANSFERS: TUB: Activity did not occur on this shift TRANSFERS: TUB - SCORE: 0-UNK LOCOMOTION: WALK: Activity did not occur on this shift LOCOMOTION: WALK - SCORE: 0-UNK LOCOMOTION: WHEELCHAIR: Activity did not occur on this shift LOCOMOTION: WHEELCHAIR - SCORE: 0-UNK COMPREHENSION: COMPREHENSION: TYPE: Both COMPREHENSION - STEP 1: Does the patient require help from a person or device, or need extra time to understand complex and a bstract ideas (such as current events, finances, discharge planning, medical issues, relationships, e tc)? No. COMPREHENSION - STEP 2: Does the patient need extra time, require an assistive device (such as glasses for visual comprehensi on or a hearing aid for auditory comprehension) or does s/he have mild difficulty understanding compl ex and abstract information? Yes. COMPREHENSION - SCORE: 6-RONEN EXPRESSION EXPRESSION: TYPE: Both EXPRESSION - STEP 1: Does the patient require help from a person or device, or need extra time expressing complex and abst ract ideas (such as current events, finances, discharge planning, medical issues, relationships, etc) ? No. EXPRESSION - STEP 2: Does the patient need extra time, require an assistive device (such as augmentive communication syste m or a communication board), OR does s/he have mild difficulty expressing complex and abstract ideas (including mild dysarthria or mild word-find problems)? Yes. EXPRESSION - SCORE: 6-RONEN SOCIAL INTERACTION: SOCIAL INTERACTION - STEP 1: Does the patient require a helper to interact with others in social and therapeutic situations? No. SOCIAL INTERACTION - STEP 2: Does the patient need extra time in social situations, OR does s/he interact with staff, other patien ts, and family members ONLY in structured environments, OR does s/he require medication for social in teraction? Yes, patient requires medication for social interaction SOCIAL INTERACTION - SCORE: 6-RONEN PROBLEM SOLVING: PROBLEM SOLVING - STEP 1: Does the patient need help from a person or device, or need extra time to solve complex problems such as managing a checking account or confronting interpersonal problems? No. PROBLEM SOLVING - STEP 2: Does the patient require extra time to make decisions or solve problems, OR does s/he have slight dif ficulty reading, initiating, or self-correcting in unfamiliar situations? Yes, patient needs extra ti me. PROBLEM SOLVING - SCORE: 6-RONEN MEMORY: MEMORY - STEP 1: Does the patient need help from a person or device, or need extra time to remember frequently encount ered people, daily routines, and executing requests? No. MEMORY - STEP 2: Does the patient have slight difficulty recognizing frequently encountered people, daily routines, or executing requests without the need for repetition or using self-initiated or environmental cues to remember? Yes. MEMORY - SCORE: 6-RONEN SIGNATURE PANEL: The following modified sections: Eating - Score, Grooming - Score, Dressing - Upper Body - Score, Maynor ssing - Lower Body - Score, Toileting - Score, Bladder Management - Score, Bowel Management - Score, Transfers: Bed, Chair, Wheelchair - Score, Transfers: Toilet - Score, Transfers: Shower - Score, Lopez sfers: Tub - Score, Locomotion: Walk - Score, Locomotion: Wheelchair - Score, Comprehension - Score, Expression - Score, Social Interaction - Score, Problem Solving - Score, Memory - Score were [electro nically] signed by Zina Flynn CNA on SunJun 30 2018 01:33:22 GMT-0500 (Central Daylight Time)
[2018-06-30] MEDS: METOPROLOL XL 50 MG TAB PO SCH (05:10)
[2018-06-30 06:11] LABS: Protime INR 1.88
[2018-06-30] MEDS: PANTOPRAZOLE 40MG TABLET PO SCH (07:01)
[2018-06-30] MEDS: INSULIN -REGULAR HUMAN 50 UNIT/0.5 ML ML SQ SCH ×4 (07:30→20:42)
[2018-06-30] MEDS: NYSTATIN PWDR 100000 UNIT/GM TOP SCH ×2 (08:00→20:41)
[2018-06-30] MEDS: PROMOD 30 ML DOSE PO SCH ×2 (08:00→20:00)
[2018-06-30] MEDS: LIDOCAINE 5% PATCH TOP SCH (08:44)
[2018-06-30] MEDS: RAMIPRIL 2.5 MG CAP PO SCH (08:44)
[2018-06-30] MEDS: ASPIRIN 81 MG CHEWABLE TABLET PO SCH (08:45)
[2018-06-30] MEDS: CITALOPRAM 10 MG TABLET PO SCH (08:45)
[2018-06-30] MEDS: FERROUS SULFATE 325 MG TAB PO SCH ×3 (08:45→20:41)
[2018-06-30] MEDS: CHLORTHALIDONE 25 MG TAB PO SCH (08:45)
[2018-06-30] MEDS: MAGNESIUM OXIDE 400 MG TAB PO SCH ×2 (08:45→20:41)
[2018-06-30] MEDS: ANASTROZOLE 1 MG TAB PO SCH (08:48)
--- NOTE | 2018-06-30 14:37 | FAST ---
SHIFT START DATE/TIME: 06/30/2018 07:00 (CDT) SHIFT END DATE/TIME: 06/30/2018 19:00 (CDT) NAME SARI PERES DATE OF : 1940 DATE OF ADMISSION: 06/17/2018 20:40 (CDT) PHONE: AGE: 77 SSN# [id number] GENDER: Female ENCOUNTER PHYSICIAN: Dr. Huan Pepe M.D. ADMISSION DIAGNOSIS: - Medically Complex Conditions 17 - Other Medically Complex Conditions (17.9) Chronic Kidney Disease. EATING: EATING - STEP 1: Does the patient require the assistance of a person or device, or need extra time when eating? Yes. EATING - STEP 2: Does the patient require the assistance of a helper? No, patient only requires an assistive device, O R s/he takes more than reasonable time to eat, OR there is a safety concern, OR s/he requires modifie d food consistency EATING - SCORE: 6-RONEN GROOMING: Comb/brush hair Oral care Wash, rinse, and dry face Wash, rinse, and dry hands GROOMING - STEP 1: Does the patient require the assistance of a person or device, or need extra time when grooming? Yes. GROOMING - STEP 2: Does the patient require the assistance of a helper? No. The patient only requires an assistive devic e, OR takes more than reasonable time to groom, OR there is a concern for safety as the patient groom s GROOMING - SCORE: 6-RONEN BATHING: Activity did not occur on this shift BATHING - SCORE: 0-UNK DRESSING - UPPER BODY: T-shirt/pullover shirt (four steps) ARTICLES SCORE Total number of steps: 4 DRESSING - UPPER BODY - STEP 1: Does the patient require help from a person or device, or need extra time when dressing above the [address]? Yes. DRESSING - UPPER BODY - STEP 2: Does the patient require the assistance of a helper? Yes. DRESSING - UPPER BODY - STEP 3: Does the helper touch the patient while dressing? No. DRESSING - UPPER BODY - SCORE: 5-SUP DRESSING - LOWER BODY: Elastic waist pants (three steps) Sock - Left foot (one step) Sock - Right foot (one step) Underwear (three steps) ARTICLES SCORE Total number of steps: 8 DRESSING - LOWER BODY - STEP 1: Does the patient require help from a person or device, or need extra time when dressing below the [address]? Yes. DRESSING - LOWER BODY - STEP 2: Does the patient require the assistance of a helper? Yes. DRESSING - LOWER BODY - STEP 3: Does the helper touch the patient while dressing? Yes. DRESSING - LOWER BODY - STEP 4: How many of the total steps does the patient complete on his/her own? 6 DRESSING - LOWER BODY - SCORE: 4-MIN TOILETING: TOILETING - STEP 1: Does the patient require the assistance of a person or device, or need extra time with toileting? Yes . TOILETING - STEP 2: Does the patient require the assistance of a helper? Yes. TOILETING - STEP 3: How much assistance does the patient require from the helper? Only supervision TOILETING - SCORE: 5-SUP BLADDER MANAGEMENT: BLADDER MANAGEMENT - STEP 1: Does the patient control the bladder completely and intentionally without equipment or devices or med ications, and is always continent? No. BLADDER MANAGEMENT - STEP 2: Does the patient require the assistance of a helper? Yes. BLADDER MANAGEMENT - STEP 3: How much assistance does the patient require from the helper? Only supervision, stand-by, cuing, or c oaxing BLADDER MANAGEMENT - SCORE: 5-SUP BLADDER MANAGEMENT - FREQUENCY OF ACCIDENTS: BLADDER MANAGEMENT(FA) - STEP 1: How many accidents has the patient had during the current shift? 2 BOWEL MANAGEMENT: Activity did not occur on this shift BOWEL MANAGEMENT - SCORE: 7-IND BOWEL MANAGEMENT - FREQUENCY OF ACCIDENTS: BOWEL MANAGEMENT(FA) - STEP 1: How many accidents has the patient had during the current shift? 0 TRANSFERS: BED, CHAIR, WHEELCHAIR: TRANSFERS: BED, CHAIR, WHEELCHAIR - STEP 1: Does the patient require assistance of a person or device, or need extra time with bed, chair, or whe elchair transfers? Yes. TRANSFERS: BED, CHAIR, WHEELCHAIR - STEP 2: Does the patient require the assistance of a helper? Yes. TRANSFERS: BED, CHAIR, WHEELCHAIR - STEP 3: How much assistance does the patient require from the helper? Only supervision TRANSFERS: BED, CHAIR, WHEELCHAIR - SCORE: 5-SUP TRANSFERS: TOILET: TRANSFERS: TOILET - STEP 1: Does the patient require the assistance of a person or device, or need extra time with toilet transfe rs? Yes. TRANSFERS: TOILET - STEP 2: Does the patient require the assistance of a helper? Yes. TRANSFERS: TOILET - STEP 3: How much assistance does the patient require from the helper? Patient performs half or more of the tr ansferring tasks TRANSFERS: TOILET - STEP 4: Does the patient need only incidental help such as contact guard or steadying during toilet transfer? Yes. TRANSFERS: TOILET - SCORE: 4-MIN TRANSFERS: SHOWER: Activity did not occur on this shift TRANSFERS: SHOWER - SCORE: 0-UNK TRANSFERS: TUB: Activity did not occur on this shift TRANSFERS: TUB - SCORE: 0-UNK LOCOMOTION: WALK: Activity did not occur on this shift LOCOMOTION: WALK - SCORE: 0-UNK LOCOMOTION: WHEELCHAIR: Activity did not occur on this shift LOCOMOTION: WHEELCHAIR - SCORE: 0-UNK COMPREHENSION: COMPREHENSION: TYPE: Both COMPREHENSION - STEP 1: Does the patient require help from a person or device, or need extra time to understand complex and a bstract ideas (such as current events, finances, discharge planning, medical issues, relationships, e tc)? Yes. COMPREHENSION - STEP 2: Does the patient require help to understand questions or statements about basic needs or ideas (such as hunger, thirst, sleep, safety, daily schedule, room location, or discomfort) half or more of the t lizeth? No. COMPREHENSION - STEP 3: How often does the patient need help to understand directions and conversation about basic needs? Les s than 10% of the time COMPREHENSION - SCORE: 5-SUP EXPRESSION EXPRESSION: TYPE: Both EXPRESSION - STEP 1: Does the patient require help from a person or device, or need extra time expressing complex and abst ract ideas (such as current events, finances, discharge planning, medical issues, relationships, etc) ? No. EXPRESSION - STEP 2: Does the patient need extra time, require an assistive device (such as augmentive communication syste m or a communication board), OR does s/he have mild difficulty expressing complex and abstract ideas (including mild dysarthria or mild word-find problems)? Yes. EXPRESSION - SCORE: 6-RONEN SOCIAL INTERACTION: SOCIAL INTERACTION - STEP 1: Does the patient require a helper to interact with others in social and therapeutic situations? Yes. SOCIAL INTERACTION - STEP 2: Does the patient interact appropriately half or more of the time? Yes. SOCIAL INTERACTION - STEP 3: How often does the patient need help to interact appropriately? Less than 10% of the time SOCIAL INTERACTION - SCORE: 5-SUP PROBLEM SOLVING: PROBLEM SOLVING - STEP 1: Does the patient need help from a person or device, or need extra time to solve complex problems such as managing a checking account or confronting interpersonal problems? Yes. PROBLEM SOLVING - STEP 2: Does the patient solve basic routine problems half or more of the time? Yes. PROBLEM SOLVING - STEP 3: How often does the patient need help to solve basic routine problems? Less than 10% of the time PROBLEM SOLVING - SCORE: 5-SUP MEMORY: MEMORY - STEP 1: Does the patient need help from a person or device, or need extra time to remember frequently encount ered people, daily routines, and executing requests? Yes. MEMORY - STEP 2: How often does the patient need help to remember frequently encountered people, daily routines, and e xecuting requests? Less than 10% of the time MEMORY - SCORE: 5-SUP SIGNATURE PANEL: The following modified sections: Eating - Score, Grooming - Score, Bathing - Score, Dressing - Upper Body - Score, Dressing - Lower Body - Score, Toileting - Score, Bladder Management - Score, Bowel Man agement - Score, Transfers: Bed, Chair, Wheelchair - Score, Transfers: Toilet - Score, Transfers: Thelma wer - Score, Transfers: Tub - Score, Locomotion: Walk - Score, Locomotion: Wheelchair - Score, Compre hension - Score, Expression - Score, Social Interaction - Score, Problem Solving - Score, Memory - Sc ore were [electronically] signed by Nataly Watt C.N.A. on SunJun 30 2018 14:37:01 T-0500 (Centra l Daylight Time)
[2018-06-30] MEDS: WARFARIN SODIUM 2 MG TAB PO SCH (16:14)
[2018-06-30] MEDS: ATORVASTATIN 40 MG TAB PO SCH (20:41)
[2018-06-30] MEDS: DOCUSATE NA/SENNA CONC 1 TAB PO PRN (20:41)
[2018-06-30] MEDS: TRESIBA (INSULIN DEGLUDEC) SQ SCH (20:42)
--- NOTE | 2018-07-01 01:23 | FAST ---
SHIFT START DATE/TIME: 06/30/2018 19:00 (CDT) SHIFT END DATE/TIME: 07/01/2018 07:00 (CDT) NAME SARI PERES DATE OF : 1940 DATE OF ADMISSION: 06/17/2018 20:40 (CDT) PHONE: AGE: 77 SSN# [id number] GENDER: Female ENCOUNTER PHYSICIAN: Dr. Huan Pepe M.D. ADMISSION DIAGNOSIS: - Medically Complex Conditions 17 - Other Medically Complex Conditions (17.9) Chronic Kidney Disease. EATING: Activity did not occur on this shift EATING - SCORE: 0-UNK GROOMING: Activity did not occur on this shift GROOMING - SCORE: 0-UNK BATHING: Activity did not occur on this shift BATHING - SCORE: 0-UNK DRESSING - UPPER BODY: Patient is not dressing in public clothing ARTICLES SCORE Total number of steps: 0 DRESSING - UPPER BODY - SCORE: 0-UNK DRESSING - LOWER BODY: Patient is not dressing in public clothing ARTICLES SCORE Total number of steps: 0 DRESSING - LOWER BODY - SCORE: 0-UNK TOILETING: TOILETING - STEP 1: Does the patient require the assistance of a person or device, or need extra time with toileting? Yes . TOILETING - STEP 2: Does the patient require the assistance of a helper? Yes. TOILETING - STEP 3: How much assistance does the patient require from the helper? Hands-on assistance from the helper TOILETING - STEP 4: Of the 3 tasks: 1) Adjusting clothing prior to use, 2) Cleansing of perineal area, 3) Adjusting clot julian after use; How many tasks does the patient perform WITHOUT assistance of the helper? Two tasks TOILETING - SCORE: 3-MOD BLADDER MANAGEMENT: [place] removes incontinent device (Depends, pull ups, etc.); cleans the patient after accident / inco ntinent episode; and, applies new incontinent device. BLADDER MANAGEMENT - SCORE: 1-DEP BOWEL MANAGEMENT: Activity did not occur on this shift BOWEL MANAGEMENT - SCORE: 7-IND TRANSFERS: BED, CHAIR, WHEELCHAIR: TRANSFERS: BED, CHAIR, WHEELCHAIR - STEP 1: Does the patient require assistance of a person or device, or need extra time with bed, chair, or whe elchair transfers? Yes. TRANSFERS: BED, CHAIR, WHEELCHAIR - STEP 2: Does the patient require the assistance of a helper? Yes. TRANSFERS: BED, CHAIR, WHEELCHAIR - STEP 3: How much assistance does the patient require from the helper? Steadying/guiding assistance TRANSFERS: BED, CHAIR, WHEELCHAIR - SCORE: 4-MIN TRANSFERS: TOILET: TRANSFERS: TOILET - STEP 1: Does the patient require the assistance of a person or device, or need extra time with toilet transfe rs? Yes. TRANSFERS: TOILET - STEP 2: Does the patient require the assistance of a helper? Yes. TRANSFERS: TOILET - STEP 3: How much assistance does the patient require from the helper? Patient performs half or more of the tr ansferring tasks TRANSFERS: TOILET - STEP 4: Does the patient need only incidental help such as contact guard or steadying during toilet transfer? Yes. TRANSFERS: TOILET - SCORE: 4-MIN TRANSFERS: SHOWER: Activity did not occur on this shift TRANSFERS: SHOWER - SCORE: 0-UNK TRANSFERS: TUB: Activity did not occur on this shift TRANSFERS: TUB - SCORE: 0-UNK LOCOMOTION: WALK: Activity did not occur on this shift LOCOMOTION: WALK - SCORE: 0-UNK LOCOMOTION: WHEELCHAIR: Activity did not occur on this shift LOCOMOTION: WHEELCHAIR - SCORE: 0-UNK COMPREHENSION: COMPREHENSION: TYPE: Both COMPREHENSION - STEP 1: Does the patient require help from a person or device, or need extra time to understand complex and a bstract ideas (such as current events, finances, discharge planning, medical issues, relationships, e tc)? No. COMPREHENSION - STEP 2: Does the patient need extra time, require an assistive device (such as glasses for visual comprehensi on or a hearing aid for auditory comprehension) or does s/he have mild difficulty understanding compl ex and abstract information? Yes. COMPREHENSION - SCORE: 6-RONEN EXPRESSION EXPRESSION: TYPE: Both EXPRESSION - STEP 1: Does the patient require help from a person or device, or need extra time expressing complex and abst ract ideas (such as current events, finances, discharge planning, medical issues, relationships, etc) ? No. EXPRESSION - STEP 2: Does the patient need extra time, require an assistive device (such as augmentive communication syste m or a communication board), OR does s/he have mild difficulty expressing complex and abstract ideas (including mild dysarthria or mild word-find problems)? Yes. EXPRESSION - SCORE: 6-RONEN SOCIAL INTERACTION: SOCIAL INTERACTION - STEP 1: Does the patient require a helper to interact with others in social and therapeutic situations? No. SOCIAL INTERACTION - STEP 2: Does the patient need extra time in social situations, OR does s/he interact with staff, other patien ts, and family members ONLY in structured environments, OR does s/he require medication for social in teraction? Yes, patient requires medication for social interaction SOCIAL INTERACTION - SCORE: 6-RONEN PROBLEM SOLVING: PROBLEM SOLVING - STEP 1: Does the patient need help from a person or device, or need extra time to solve complex problems such as managing a checking account or confronting interpersonal problems? No. PROBLEM SOLVING - STEP 2: Does the patient require extra time to make decisions or solve problems, OR does s/he have slight dif ficulty reading, initiating, or self-correcting in unfamiliar situations? Yes, patient needs extra ti me. PROBLEM SOLVING - SCORE: 6-RONEN MEMORY: MEMORY - STEP 1: Does the patient need help from a person or device, or need extra time to remember frequently encount ered people, daily routines, and executing requests? No. MEMORY - STEP 2: Does the patient have slight difficulty recognizing frequently encountered people, daily routines, or executing requests without the need for repetition or using self-initiated or environmental cues to remember? Yes. MEMORY - SCORE: 6-RONEN SIGNATURE PANEL: The following modified sections: Eating - Score, Grooming - Score, Dressing - Upper Body - Score, Maynor ssing - Lower Body - Score, Toileting - Score, Bladder Management - Score, Bowel Management - Score, Transfers: Bed, Chair, Wheelchair - Score, Transfers: Toilet - Score, Transfers: Shower - Score, Lopez sfers: Tub - Score, Locomotion: Walk - Score, Locomotion: Wheelchair - Score, Comprehension - Score, Expression - Score, Social Interaction - Score, Problem Solving - Score, Memory - Score were [electro nically] signed by Zina Flynn CNA on SunJul 01 2018 01:23:03 GMT-0500 (Central Daylight Time)
[2018-07-01] MEDS: METOPROLOL XL 50 MG TAB PO SCH (05:22)
[2018-07-01] MEDS: PANTOPRAZOLE 40MG TABLET PO SCH (06:08)
[2018-07-01 06:49] LABS: Protime INR 1.42
[2018-07-01] MEDS: INSULIN -REGULAR HUMAN 50 UNIT/0.5 ML ML SQ SCH ×4 (07:23→21:00)
[2018-07-01] MEDS: NYSTATIN PWDR 100000 UNIT/GM TOP SCH ×2 (08:00→21:13)
[2018-07-01] MEDS: FERROUS SULFATE 325 MG TAB PO SCH ×3 (08:10→21:13)
[2018-07-01] MEDS: CHLORTHALIDONE 25 MG TAB PO SCH (08:10)
[2018-07-01] MEDS: RAMIPRIL 2.5 MG CAP PO SCH (08:10)
[2018-07-01] MEDS: CITALOPRAM 10 MG TABLET PO SCH (08:11)
[2018-07-01] MEDS: TRAMADOL HCL 50 MG TAB PO PRN (08:11)
[2018-07-01] MEDS: ANASTROZOLE 1 MG TAB PO SCH (08:11)
[2018-07-01] MEDS: ASPIRIN 81 MG CHEWABLE TABLET PO SCH (08:11)
[2018-07-01] MEDS: MAGNESIUM OXIDE 400 MG TAB PO SCH ×2 (08:11→21:13)
[2018-07-01] MEDS: LIDOCAINE 5% PATCH TOP SCH (08:12)
[2018-07-01] MEDS: PROMOD 30 ML DOSE PO SCH ×2 (08:12→21:13)
[2018-07-01] MEDS: WARFARIN SODIUM 2 MG TAB PO SCH (16:13)
[2018-07-01] MEDS: ATORVASTATIN 40 MG TAB PO SCH (21:13)
[2018-07-01] MEDS: TRESIBA (INSULIN DEGLUDEC) SQ SCH (21:14)
--- NOTE | 2018-07-02 03:00 | FAST ---
SHIFT START DATE/TIME: 07/01/2018 19:00 (CDT) SHIFT END DATE/TIME: 07/02/2018 07:00 (CDT) NAME SARI PERES DATE OF : 1940 DATE OF ADMISSION: 06/17/2018 20:40 (CDT) PHONE: AGE: 77 SSN# [id number] GENDER: Female ENCOUNTER PHYSICIAN: Dr. Huan Pepe M.D. ADMISSION DIAGNOSIS: - Medically Complex Conditions 17 - Other Medically Complex Conditions (17.9) Chronic Kidney Disease. EATING: Activity did not occur on this shift EATING - SCORE: 0-UNK GROOMING: Activity did not occur on this shift GROOMING - SCORE: 0-UNK BATHING: Activity did not occur on this shift BATHING - SCORE: 0-UNK DRESSING - UPPER BODY: Patient is not dressing in public clothing ARTICLES SCORE Total number of steps: 0 DRESSING - UPPER BODY - SCORE: 0-UNK DRESSING - LOWER BODY: Patient is not dressing in public clothing ARTICLES SCORE Total number of steps: 0 DRESSING - LOWER BODY - SCORE: 0-UNK TOILETING: TOILETING - STEP 1: Does the patient require the assistance of a person or device, or need extra time with toileting? Yes . TOILETING - STEP 2: Does the patient require the assistance of a helper? Yes. TOILETING - STEP 3: How much assistance does the patient require from the helper? Hands-on assistance from the helper TOILETING - STEP 4: Of the 3 tasks: 1) Adjusting clothing prior to use, 2) Cleansing of perineal area, 3) Adjusting clot julian after use; How many tasks does the patient perform WITHOUT assistance of the helper? Three tasks with steadying assistance from the helper TOILETING - SCORE: 4-MIN BLADDER MANAGEMENT: [place] removes incontinent device (Depends, pull ups, etc.); cleans the patient after accident / inco ntinent episode; and, applies new incontinent device. BLADDER MANAGEMENT - SCORE: 1-DEP BOWEL MANAGEMENT: Activity did not occur on this shift BOWEL MANAGEMENT - SCORE: 7-IND TRANSFERS: BED, CHAIR, WHEELCHAIR: TRANSFERS: BED, CHAIR, WHEELCHAIR - STEP 1: Does the patient require assistance of a person or device, or need extra time with bed, chair, or whe elchair transfers? Yes. TRANSFERS: BED, CHAIR, WHEELCHAIR - STEP 2: Does the patient require the assistance of a helper? Yes. TRANSFERS: BED, CHAIR, WHEELCHAIR - STEP 3: How much assistance does the patient require from the helper? Steadying/guiding assistance TRANSFERS: BED, CHAIR, WHEELCHAIR - SCORE: 4-MIN TRANSFERS: TOILET: TRANSFERS: TOILET - STEP 1: Does the patient require the assistance of a person or device, or need extra time with toilet transfe rs? Yes. TRANSFERS: TOILET - STEP 2: Does the patient require the assistance of a helper? Yes. TRANSFERS: TOILET - STEP 3: How much assistance does the patient require from the helper? Patient performs half or more of the tr ansferring tasks TRANSFERS: TOILET - STEP 4: Does the patient need only incidental help such as contact guard or steadying during toilet transfer? Yes. TRANSFERS: TOILET - SCORE: 4-MIN TRANSFERS: SHOWER: Activity did not occur on this shift TRANSFERS: SHOWER - SCORE: 0-UNK TRANSFERS: TUB: Activity did not occur on this shift TRANSFERS: TUB - SCORE: 0-UNK LOCOMOTION: WALK: Activity did not occur on this shift LOCOMOTION: WALK - SCORE: 0-UNK LOCOMOTION: WHEELCHAIR: Activity did not occur on this shift LOCOMOTION: WHEELCHAIR - SCORE: 0-UNK COMPREHENSION: COMPREHENSION: TYPE: Both COMPREHENSION - STEP 1: Does the patient require help from a person or device, or need extra time to understand complex and a bstract ideas (such as current events, finances, discharge planning, medical issues, relationships, e tc)? No. COMPREHENSION - STEP 2: Does the patient need extra time, require an assistive device (such as glasses for visual comprehensi on or a hearing aid for auditory comprehension) or does s/he have mild difficulty understanding compl ex and abstract information? No. COMPREHENSION - SCORE: 7-IND EXPRESSION EXPRESSION: TYPE: Both EXPRESSION - STEP 1: Does the patient require help from a person or device, or need extra time expressing complex and abst ract ideas (such as current events, finances, discharge planning, medical issues, relationships, etc) ? No. EXPRESSION - STEP 2: Does the patient need extra time, require an assistive device (such as augmentive communication syste m or a communication board), OR does s/he have mild difficulty expressing complex and abstract ideas (including mild dysarthria or mild word-find problems)? No. EXPRESSION - SCORE: 7-IND SOCIAL INTERACTION: SOCIAL INTERACTION - STEP 1: Does the patient require a helper to interact with others in social and therapeutic situations? No. SOCIAL INTERACTION - STEP 2: Does the patient need extra time in social situations, OR does s/he interact with staff, other patien ts, and family members ONLY in structured environments, OR does s/he require medication for social in teraction? No. SOCIAL INTERACTION - SCORE: 7-IND PROBLEM SOLVING: PROBLEM SOLVING - STEP 1: Does the patient need help from a person or device, or need extra time to solve complex problems such as managing a checking account or confronting interpersonal problems? No. PROBLEM SOLVING - STEP 2: Does the patient require extra time to make decisions or solve problems, OR does s/he have slight dif ficulty reading, initiating, or self-correcting in unfamiliar situations? No. PROBLEM SOLVING - SCORE: 7-IND MEMORY: MEMORY - STEP 1: Does the patient need help from a person or device, or need extra time to remember frequently encount ered people, daily routines, and executing requests? No. MEMORY - STEP 2: Does the patient have slight difficulty recognizing frequently encountered people, daily routines, or executing requests without the need for repetition or using self-initiated or environmental cues to remember? No. MEMORY - SCORE: 7-IND SIGNATURE PANEL: The following modified sections: Eating - Score, Grooming - Score, Bathing - Score, Dressing - Upper Body - Score, Dressing - Lower Body - Score, Toileting - Score, Bladder Management - Score, Bowel Man agement - Score, Transfers: Bed, Chair, Wheelchair - Score, Transfers: Toilet - Score, Transfers: Thelma wer - Score, Transfers: Tub - Score, Locomotion: Walk - Score, Locomotion: Wheelchair - Score, Compre hension - Score, Expression - Score, Social Interaction - Score, Problem Solving - Score, Memory - Sc ore were [electronically] signed by Sheryl Randolph CNA on SunJul 02 2018 02:59:39 T-0500 ([place] ylight Time)
[2018-07-02] MEDS: METOPROLOL XL 50 MG TAB PO SCH (05:11)
[2018-07-02 06:21] LABS: Protime INR 1.64
[2018-07-02] MEDS: PANTOPRAZOLE 40MG TABLET PO SCH (06:56)
[2018-07-02] MEDS: INSULIN -REGULAR HUMAN 50 UNIT/0.5 ML ML SQ SCH ×2 (07:30→11:30)
[2018-07-02] MEDS: LIDOCAINE 5% PATCH TOP SCH (07:40)
[2018-07-02 07:53] VITALS: BP 135/60; TEMP 97.2
[2018-07-02] MEDS: CITALOPRAM 10 MG TABLET PO SCH (08:00)
[2018-07-02] MEDS: CHLORTHALIDONE 25 MG TAB PO SCH (08:00)
[2018-07-02] MEDS: ANASTROZOLE 1 MG TAB PO SCH (08:00)
[2018-07-02] MEDS: MAGNESIUM OXIDE 400 MG TAB PO SCH (08:00)
[2018-07-02] MEDS: FERROUS SULFATE 325 MG TAB PO SCH ×2 (08:00→13:46)
[2018-07-02] MEDS: ASPIRIN 81 MG CHEWABLE TABLET PO SCH (08:00)
[2018-07-02] MEDS: RAMIPRIL 2.5 MG CAP PO SCH (08:00)
[2018-07-02] MEDS: PROMOD 30 ML DOSE PO SCH (08:01)
[2018-07-02] MEDS: NYSTATIN PWDR 100000 UNIT/GM TOP SCH (08:01)
--- NOTE | 2018-07-02 15:39 | FAST ---
ENCOUNTER DATE AND TIME: 07/02/2018 08:00 (CDT) NAME SARI PERES DATE OF : 1940 DATE OF ADMISSION: 06/17/2018 20:40 (CDT) PHONE: AGE: 77 SSN# [id number] GENDER: Female ENCOUNTER PHYSICIAN: Dr. Huan Pepe M.D. ADMISSION DIAGNOSIS: - Medically Complex Conditions 17 - Other Medically Complex Conditions (17.9) Chronic Kidney Disease. EATING: Activity did not occur on this shift EATING - SCORE: 0-UNK GROOMING: Activity did not occur on this shift GROOMING - SCORE: 0-UNK BATHING: Activity did not occur on this shift BATHING - SCORE: 0-UNK DRESSING - UPPER BODY: Activity did not occur on this shift Patient is not dressing in public clothing ARTICLES SCORE Total number of steps: 0 DRESSING - UPPER BODY - SCORE: 0-UNK DRESSING - LOWER BODY: Activity did not occur on this shift Patient is not dressing in public clothing ARTICLES SCORE Total number of steps: 0 DRESSING - LOWER BODY - SCORE: 0-UNK TOILETING: Activity did not occur on this shift TOILETING - SCORE: 0-UNK BLADDER MANAGEMENT: Activity did not occur on this shift BLADDER MANAGEMENT - SCORE: 7-IND BOWEL MANAGEMENT: Activity did not occur on this shift BOWEL MANAGEMENT - SCORE: 7-IND TRANSFERS: BED, CHAIR, WHEELCHAIR: TRANSFERS: BED, CHAIR, WHEELCHAIR - STEP 1: Does the patient require assistance of a person or device, or need extra time with bed, chair, or whe elchair transfers? Yes. TRANSFERS: BED, CHAIR, WHEELCHAIR - STEP 2: Does the patient require the assistance of a helper? No. Patient only requires an assistive device fo r bed, chair, wheelchair transfers such as a sliding board, grab bar, or brace, OR s/he takes more th an reasonable time, OR there is a safety concern when s/he performs the transfers TRANSFERS: BED, CHAIR, WHEELCHAIR - SCORE: 6-RONEN TRANSFERS: TOILET: Activity did not occur on this shift TRANSFERS: TOILET - SCORE: 0-UNK TRANSFERS: SHOWER: Activity did not occur on this shift TRANSFERS: SHOWER - SCORE: 0-UNK TRANSFERS: TUB: Activity did not occur on this shift TRANSFERS: TUB - SCORE: 0-UNK LOCOMOTION: WALK: LOCOMOTION: WALK - STEP 1: Does the patient need help from a person or device, or need extra time to walk 150 feet? No. LOCOMOTION: WALK - STEP 2: Does the patient need an assistive device (such as an orthosis, prosthesis, crutches, or walker) to g o 150 feet, OR does s/he take more than reasonable time, OR is there a concern for safety? Yes, the p atient needs an assistive device LOCOMOTION: WALK - SCORE: 6-RONEN LOCOMOTION: WHEELCHAIR: LOCOMOTION: WHEELCHAIR - STEP 1: Does the patient need help to go 150 feet in a wheelchair? No. LOCOMOTION: WHEELCHAIR - SCORE: 6-RONEN LOCOMOTION: STAIRS: LOCOMOTION: STAIRS - STEP 1: Does the patient need help to go up and down 12 to 14 stairs? Yes. LOCOMOTION: STAIRS - STEP 2: How much assistance does the patient need from the helper to go a minimum of 12 to 14 stairs? Only peralta pervision, cuing, or coaxing LOCOMOTION: STAIRS - SCORE: 5-SUP COMPREHENSION: COMPREHENSION - SCORE: 0-UNK EXPRESSION EXPRESSION - SCORE: 0-UNK SOCIAL INTERACTION: SOCIAL INTERACTION - SCORE: 0-UNK PROBLEM SOLVING: PROBLEM SOLVING - SCORE: 0-UNK MEMORY: MEMORY - SCORE: 0-UNK SIGNATURE PANEL: The following modified sections: Transfers: Bed, Chair, Wheelchair - Score, Transfers: Toilet - Score , Locomotion: Walk - Score, Locomotion: Wheelchair - Score, Locomotion: Stairs - Score were [electron pooja] signed by Josue Novak PTA on SunJul 02 2018 15:38:07 T-0500 (Central Daylight Time)
--- NOTE | 2018-07-02 18:46 | R.PN ---
ENCOUNTER DATE AND TIME: 07/02/2018 18:44 (CDT) NAME SARI PERES DATE OF : 1940 DATE OF ADMISSION: 06/17/2018 20:40 (CDT) Chronic Kidney DiseaseCHIEF COMPLAINT: Chronic kidney disease with debility SUBJECTIVE: Pt denied any depression. Pt denied any Shortness of Breath. Ambulated 200' with modified independence using a rolling walker. Hgb 10.0, WBC 7.0, Glucose 110 to 1 98. Restarted insulin glargine 4 units at bedtime with improved glucose control. Will increase to 45 units at bedtime and continue mild insulin sliding scale. VITAL SIGNS Temperature: 97.4 F SBP/DBP: 135/60 Pulse: 59 Resp: 16 MEDICATION ALLERGIES: quinolones ENVIRONMENTAL ALLERGIES: - Substance Allergies None Known - Other Allergies None Known NURSING: - Shower allowing shower - Lab Results blood Sugar Check ACHS PRECAUTIONS: - Weight Bearing Precaution NWB right LE ACTIVITIES OOB only with supervision THERAPIES: - Occupational Therapy Evaluate and Treat. - Physical Therapy Evaluate and Treat. PHYSICAL EXAM - Gen Alert and awake Lying in bed No apparent distress Oriented to: person, time, and place - Skin No breakdown No abnormalities - Eyes No abnormalities - ENMT No abnormalities - Neck No abnormalities - CVS RRR - Chest No abnormalities - Abd Soft - GI nondistended Deferred - No abnormalities - Ext No significant edema. Right lower extremity in knee immobilizer due to moderate right medial meniscus tear. - MSK 4+/5 weakness in right lower extremity - Neuro 4/5 strength right lower extremity. - Psych No abnormalities ASSESSMENT: Pt. is a 77 yo Right-handed female.On 06/16/2018 she was admitted to [facility] with diagnosis Chronic Kidney Disease.Her impairment category is Medically Complex Conditio ns 17 - Other Medically Complex Conditions (17.9).Pre-morbidly, Pt. was independent/mod-I in Self-Ca re, Sphincter Control, Transfers Control, Locomotion, and Communication; and she had good Sphincter C ontrol.Currently, she has deficits of Transfers Control, Locomotion, Communication, Social Cognition, Endurance, Balance, Safety Awareness, and Self-Care.Pt. is now referred to [facility] for acute in-patient rehabilitation in order to maximize patient's functional independence i n activities of daily living, strength, ROM, and mobility.- Rehab Goal Patient has realistic goal of being discharged at assistance level 6-Melvin to reside at Home with Att endant. MDM/PLAN: - Physical Therapy Gait dysfunction - to improve, our physical therapists will perform initial evaluation of pt's statu s upon admission and devise an individualized program for Gait Training, and Wheel Chair mobility Inability to transfer - to improve, our physical therapists will perform initial evaluation of pt's status upon admission and devise an individualized program for Bed mobility Need for home safety evaluation - to improve, our physical therapists will perform initial evaluatio n of pt's status upon admission and devise an individualized program for Home Evaluation Need in caregiver upon discharge - to improve, our physical therapists will perform initial evaluati on of pt's status upon admission and devise an individualized program for Caregiver Training Edema - to improve, our physical therapists will perform initial evaluation of pt's status upon admi ssion and devise an individualized program for Elevation Training, and Lymphedema Therapy New precaution - to improve, our physical therapists will perform initial evaluation of pt's status upon admission and devise an individualized program for Patient precaution education Poor balance - to improve, our physical therapists will perform initial evaluation of pt's status up on admission and devise an individualized program for Balance Training Poor endurance - to improve, our physical therapists will perform initial evaluation of pt's status upon admission and devise an individualized program for Endurance Training Weakness - to improve, our physical therapists will perform initial evaluation of pt's status upon a dmission and devise an individualized program for Aquatic Therapy, Neuromuscular Reeducation, and Str engthening Achieving independence - to improve, our physical therapists will perform initial evaluation of pt's status upon admission and devise an individualized program for Community Reintegration Activities - Occupational Therapy ADL deficits - to improve, our occupation therapists will perform initial evaluation of pt's status upon admission and devise an individualized program for Bathing, Bed mobility, Community Reintegratio n, Cooking, Dressing, Eating, Fine Motor Skills, Grooming, Homemaking, Kitchen Mobility, Laundry, Pat ient Education, Safety Awareness, Splinting - Positioning, Transfers(Toilet, Tub, Shower), and Wheel Chair Management Cognitive deficits - to improve, our occupation therapists will perform initial evaluation of pt's s tatus upon admission and devise an individualized program for Cognition - orientation Need for primary care provider - to improve, our occupation therapists will perform initial evaluation of pt's status upon admission and devise an individualized program for Caregiver Training Weakness - to improve, our occupation therapists will perform initial evaluation of pt's status upon admission and devise an individualized program for Aquatic Therapy, Balance, Endurance, UE ROM, and UE strengthening - Diet Type Continue Regular - Diet - Liquid Texture Continue Regular - Tube Feed Continue N/A - Lab Results blood Sugar Check ACHS - Weight Bearing Precaution NWB right LE - Diet - Solid Texture Continue Regular - Shower allowing shower FUNCTIONAL STATUS: UPDATED AT WEEKLY TEAM CONFERENCE - Bladder Same accident frequency: 7-Ind - No accidents in the past 7 days - Bowel Same accident frequency: 7-Ind - No accidents in the past 7 days - Walking Same score based on distance walked: 1(<=50ft) - Wheelchair Same score based on distance traveled: 1(<=50ft) FUNCTIONAL STATUS: - Self-Care A. Eating Ind B. Grooming Ind C. Bathing Ind D. Dressing - Upper Ind E. Dressing - Lower maxA F. Toileting Dep - Sphincter Control G: Bladder control Ind H: Bowel control Ind - Transfers Control I. Bed/Chair/Wheelchair maxA J. Toilet maxA K. Tub/Shower maxA - Locomotion L. Walk/Wheelchair (B) Dep M. Stairs ADNO - Communication N. Comprehension (B) Matty O. Expression (B) Matty - Social Cognition P. Social Interaction Matty Q. Problem Solving modA R. Memory Matty - Endurance Poor - Balance Poor - Safety Awareness Poor CURRENT FUNC. DEFICITS: Transfers Control, Locomotion, Communication, Social Cognition, Endurance, Balance, Safety Awareness, and Self-Care SIGNATURE PANEL: (CDT)
== END 2018-07-02 14:45 | disposition home health service (06) | DRG 292 ==
LOC: 5TH 20:39
PROVIDERS: ADMIT Psychiatry & Neurology Neurology with Special Qualifications in Child Neurology; ATTEND Psychiatry & Neurology Neurology with Special Qualifications in Child Neurology
DX: I13.0 Hypertensive heart and chronic kidney disease with heart failure and stage 1 through stage 4 chronic kidney disease, or unspecified chronic kidney disease (principal); N39.0 Urinary tract infection, site not specified; R53.81 Other malaise; E11.22 Type 2 diabetes mellitus with diabetic chronic kidney disease; N18.9 Chronic kidney disease, unspecified; I50.89 Other heart failure; I48.91 Unspecified atrial fibrillation; I25.10 Atherosclerotic heart disease of native coronary artery without angina pectoris; E78.5 Hyperlipidemia, unspecified; M17.11 Unilateral primary osteoarthritis, right knee
CPT/HCPCS: 36415; 80048; 82040; 82962; 83735; 84134; 85014; 85018; 85025; 85610; 92507; 92508; 92523; 97110; 97112; 97116; 97150; 97163; 97167; 97530; 97542

== ENCOUNTER 2018-07-10 12:59 | Inpatient (IN) | payer OTHER ==
--- OUTSIDE RECORDS SUMMARY | 2018-07-10 13:02 | XMS REPORT ---
:1940 Author Organization [facility] Address [address] [place] [id number] Care Team Providers Name Role Phone Unavailable Unavailable Unavailable Problems This patient has no known problems. Allergies, Adverse Reactions, Alerts This patient has no known allergies or adverse reactions. Medications This patient has no known medications.
--- OUTSIDE RECORDS SUMMARY | 2018-07-10 13:02 | XMS REPORT ---
:1940 Author Organization [employer] Care Team Providers Name Role Phone Laura, [facility] Provider Role Unavailable Allergies, Adverse Reactions, Alerts [...] Citalopram [facility] 64417949429 20 MG Orally Active 1 tablet Hydrobromide Once a day Coumadin ND 63567513360 2 MG Orally Active 1 tablet Once a day Lipitor ND 95719006465 40 MG Active 1 TAB(S) ONCE A DAY ORALLY Meclizine HCl ND 94035966671 25 MG Orally Active 1 tablet Three times a day Ferrous Sulfate ND 65031709599 325 (65 Fe) MG May Active 1 tablet Orally Once a 2017 day Tresiba FlexTouch ND 68436870523 200 UNIT/ML Active not Subcutaneous defined Chlorthalidone ND 42526458240 25 MG Orally Active 1 tablet Once a day in the morning with food FreeStyle Lite [facility] 50618101556 0 Active CHECK Test BLOOD SUGAR TWICE DAILY Flonase Allergy [facility] 42679657872 50 MCG/ACT Active 1 spray in Relief Nasally Once a each day nostril Meclizine HCl [facility] 32541170379 25 Active CHEW AND SWALLOW 1 TABLET THREE TIMES DAILY Anastrozole [facility] 69329545241 1 MG Orally Active 1 tablet Once a day Protonix [facility] 60228128608 40 MG Active 1 TAB(S) ONCE A DAY ORALLY Losartan [facility] 49786879703 100 MG Orally Active 1 tablet Potassium Once a day Topamax [facility] 43980188682 50 MG Orally Active 1 tablet Once a day Protonix [facility] 24071481201 40 MG Orally Active 1 tablet Once a day Tresiba FlexTouch [facility] 04642552000 200 UNIT/ML Active 40 UNITS DAILY Results No Known Results Summary Purpose eClinicalWorks Submission
--- OUTSIDE RECORDS SUMMARY | 2018-07-10 13:02 | XMS REPORT ---
:1940 Author Organization [employer] Care Team Providers Name Role Phone Valentín [facility] Provider Role Unavailable Allergies No [...] Start End Date Status Dosage System Date [facility] 68639782099 200 UNIT/ML Active 70 UNITS FlexTouch Subcutaneous DAILY Increase 2 untis after 3 day if BS are high Results No Known Results Summary Purpose eClinicalWorks Submission
--- OUTSIDE RECORDS SUMMARY | 2018-07-10 13:03 | XMS REPORT ---
[...] End Status Dosage System Date Date Anastrozole [facility] 65443761220 1 MG Orally Active 1 tablet Once a day Lipitor [facility] 97842978283 40 MG Orally Active 1 tablet Once a day Protonix [facility] 40632263781 40 MG Orally Active 1 tablet Once a day Topamax [facility] 15419915129 50 MG Orally Active 1 tablet Once a day Ferrous Sulfate [facility] 39575407724 325 (65 Fe) MG Active 1 tablet Orally Once a day Lipitor [facility] 32179444391 40 Active 1 TAB(S) ONCE A DAY ORALLY Tresiba FlexTouch [facility] 65464257123 200 UNIT/ML Active 70 UNITS Subcutaneous DAILY Increase 2 untis after 3 day if BS are high HydrALAZINE HCl [facility] 44790355448 25 MG Orally Active 1 tablet Two times a day with food Tresiba FlexTouch [facility] 47752163160 200 UNIT/ML Active not Subcutaneous defined Tresiba FlexTouch [facility] 59360549558 200 UNIT/ML Active INJECT 70 UNITS UNDER THE SKIN EVERY DAY INCREASE 2 UNITS AFTER 3 DAYS IF BLOOD SUGAR IS HIGH FreeStyle Lite [facility] 00370156846 0 Active CHECK Test BLOOD SUGAR TWICE DAILY Losartan [facility] 34163431547 100 MG Orally Inactive 1 tablet Potassium Once a day Pantoprazole [facility] 29884277294 40 Active TAKE 1 Sodium TABLET BY MOUTH EVERY DAY Citalopram [facility] 66613008671 20 Active TAKE 1 Hydrobromide TABLET BY MOUTH EVERY DAY Meclizine HCl [facility] 24342085010 25 Active CHEW AND SWALLOW 1 TABLET THREE TIMES DAILY Citalopram [facility] 37961092765 20 MG Orally Active 1 tablet Hydrobromide Once a day Coumadin [facility] 27698332132 2 MG Orally Active 1 tablet Once a day Lipitor [facility] 90798917671 40 MG Active 1 TAB(S) ONCE A DAY ORALLY Chlorthalidone [facility] 12534674621 25 MG Orally Inactive 1 tablet Once a day in the morning with food Flonase Allergy [facility] 48893613640 50 MCG/ACT Active 1 spray in Relief Nasally Once a each day nostril Protonix [facility] 04937004106 40 MG Active 1 TAB(S) ONCE A DAY ORALLY BD Pen Needle [facility] 19756983511 0 Active USE DAILY Short U/F Results No Known Results Summary Purpose eClinicalWorks Submission
--- OUTSIDE RECORDS SUMMARY | 2018-07-10 13:03 | XMS REPORT ---
:1940 Author Organization eClinicalWorks Care Team Providers Name Role Phone Valentín [facility] Provider Role Unavailable Allergies No Known Allergies [...] Date Status Dosage System Date [facility] [id number] - Oct 11, Active as directed Lancets 2018 Results No Known Results Summary Purpose [employer] Submission
--- OUTSIDE RECORDS SUMMARY | 2018-07-10 13:03 | XMS REPORT ---
[...] Status Dosage System Date Date FreeStyle Lite [facility] 01948952079 0 Active CHECK Test BLOOD SUGAR TWICE DAILY Lipitor [facility] 39787778825 40 MG Active 1 TAB(S) ONCE A DAY ORALLY Losartan [facility] 85132971657 100 MG Orally Active 1 tablet Potassium Once a day Meclizine HCl [facility] 81828691821 25 Active CHEW AND SWALLOW 1 TABLET THREE TIMES DAILY Flonase Allergy [facility] 17770762199 50 MCG/ACT Active 1 spray in Relief Nasally Once a each day nostril Ferrous Sulfate [facility] 69403778241 325 (65 Fe) MG Active 1 tablet Orally Once a day Tresiba FlexTouch [facility] 28963306589 200 UNIT/ML Active 70 UNITS Subcutaneous DAILY Increase 2 untis after 3 day if BS are high Citalopram [facility] 83195747147 20 MG Orally Active 1 tablet Hydrobromide Once a day Chlorthalidone [facility] 45500364947 25 MG Orally Active 1 tablet Once a day in the morning with food Tresiba FlexTouch [facility] 12678145996 200 UNIT/ML Active not Subcutaneous defined Anastrozole [facility] 10325060685 1 MG Orally Active 1 tablet Once a day Topamax [facility] 61125962176 50 MG Orally Active 1 tablet Once a day Protonix [facility] 39780728247 40 MG Active 1 TAB(S) ONCE A DAY ORALLY Lipitor [facility] 40642608089 40 MG Orally Active 1 tablet Once a day Coumadin [facility] 34873991760 2 MG Orally Active 1 tablet Once a day BD Pen Needle [facility] 37028427368 0 Active USE DAILY Short U/F Citalopram [facility] 45584007662 20 Active TAKE 1 Hydrobromide TABLET BY MOUTH EVERY DAY Protonix [facility] 61936138803 40 MG Orally Active 1 tablet Once a day Results No Known Results Summary Purpose eClinicalWorks Submission
--- OUTSIDE RECORDS SUMMARY | 2018-07-10 13:04 | XMS REPORT ---
:1940 Author Organization eClinicalWorks Care Team Providers Name Role Phone Valentín [facility] Provider Role Unavailable Allergies No [...] Status Dosage System Date Date Ferrous Sulfate [facility][NOTE 3] 81380930916 325 (65 Fe) MG Active 1 tablet Orally Once a day FreeStyle Lite [facility][NOTE 3] 26537259355 0 Active CHECK BLOOD Test SUGAR TWICE DAILY Citalopram [facility][NOTE 3] 42069564365 20 Active TAKE 1 Hydrobromide TABLET BY MOUTH EVERY DAY Meclizine HCl [facility][NOTE 3] 61382896661 25 Active CHEW AND SWALLOW 1 TABLET THREE TIMES DAILY Lipitor ND 64610096512 40 MG Orally Active 1 tablet Once a day Flonase Allergy ND 98124758393 50 MCG/ACT Active 1 spray in Relief Nasally Once a each day nostril Pantoprazole [facility][NOTE 3] 05388773419 40 Active TAKE 1 Sodium TABLET BY MOUTH EVERY DAY FreeStyle [facility][NOTE 3] 75466867928 - Oct 11, Active as directed Lancets 2018 HydrALAZINE HCl [facility][NOTE 3] 13401611102 25 MG Orally Active 1 tablet Two times a day with food Lyrica [facility][NOTE 3] 24767915910 50 MG Orally Oct 30, Active 1 capsule Twice a day 2017 BD Pen Needle [facility][NOTE 3] 56701938307 0 Active USE DAILY Short U/F Anastrozole [facility][NOTE 3] 27415466769 1 MG Orally Active 1 tablet Once a day Topamax [facility][NOTE 3] 66627806522 50 MG Orally Active 1 tablet Once a day Coumadin [facility][NOTE 3] 40439479198 2 MG Orally Active 1 tablet Once a day Tresiba [facility][NOTE 3] 72492667982 200 UNIT/ML Active INJECT 70 FlexTouch UNITS UNDER THE SKIN EVERY DAY INCREASE 2 UNITS AFTER 3 DAYS IF BLOOD SUGAR IS HIGH Results No Known Results Summary Purpose eClinicalWorks Submission
--- OUTSIDE RECORDS SUMMARY | 2018-07-10 13:04 | XMS REPORT ---
[...] Status Dosage System Date Date HydrALAZINE HCl [facility] 06308326051 25 Orally Two Active 1 tablet times a day with food Flonase Allergy [facility] 09637669001 50 MCG/ACT Active 1 spray in Relief Nasally Once a each day nostril Topamax [facility] 73633589007 50 MG Orally Active 1 tablet Once a day Tresiba [facility] 49570916809 200 UNIT/ML Active not defined FlexTouch Subcutaneous FreeStyle [facility] 93817880662 - Oct 11, Active as directed Lancets 2018 Anastrozole [facility] 11408965905 1 MG Orally Active 1 tablet Once a day BD Pen Needle [facility] 90810774228 0 Active USE DAILY Short U/F Lyrica [facility] 12925472265 50 MG Orally Active 1 capsule Twice a day Meclizine HCl [facility] 42831113298 25 Active TAKE 1 TABLET BY MOUTH THREE TIMES DAILY Coumadin [facility] 67236430254 2 MG Orally Active 1 tablet Once a day Tresiba [facility] 44585539036 200 UNIT/ML Active INJECT 70 FlexTouch UNITS UNDER THE SKIN EVERY DAY INCREASE 2 UNITS AFTER 3 DAYS IF BLOOD SUGAR IS HIGH FreeStyle Lite [facility] 35156295247 0 Active CHECK BLOOD Test SUGAR TWICE DAILY Protonix [facility] 30021901896 40 MG Orally Active 1 tablet Once a day Citalopram [facility] 77150424584 20 MG Orally Active 1 tablet Hydrobromide Once a day Lipitor [facility] 31612810300 40 Active 1 TAB(S) ONCE A DAY ORALLY Lipitor [facility] 71207597290 40 MG Orally Active 1 tablet Once a day Lasix [facility] 36466514301 40 MG Orally Active 1 tablet Twice a day PRN for edema Ferrous Sulfate [facility] 77135234613 325 (65 Fe) MG Active 1 tablet Orally Once a day Pantoprazole [facility] 43900846178 40 Active TAKE 1 Sodium TABLET BY MOUTH EVERY DAY Results No Known Results Summary Purpose eClinicalWorks Submission
--- OUTSIDE RECORDS SUMMARY | 2018-07-10 13:04 | XMS REPORT ---
[...] End Status Dosage System Date Date Pantoprazole [facility] 68473939479 40 Active TAKE 1 Sodium TABLET BY MOUTH EVERY DAY Lipitor [facility] 42371207006 40 MG Orally Active 1 tablet Once a day Citalopram [facility] 70977272484 20 Active TAKE 1 Hydrobromide TABLET BY MOUTH EVERY DAY Lasix [facility] 64084917042 40 MG Orally Feb 13, Active 1 tablet Twice a day PRN 2019 for edema Losartan [facility] 93852041732 100 MG Orally Inactive 1 tablet Potassium Once a day Flonase Allergy [facility] 63985023087 50 MCG/ACT Active 1 spray in Relief Nasally Once a each day nostril Citalopram [facility] 16604480992 20 MG Orally Active 1 tablet Hydrobromide Once a day Lipitor [facility] 00597455968 40 Active 1 TAB(S) ONCE A DAY ORALLY Anastrozole [facility] 21076749389 1 MG Orally Feb 08, Active 1 tablet Once a day 2019 FreeStyle Lite [facility] 31068776579 0 Active CHECK Test BLOOD SUGAR TWICE DAILY Protonix [facility] 74468337254 40 MG Orally Active 1 tablet Once a day BD Pen Needle [facility] 84579359735 0 Active USE DAILY Short U/F Tresiba [facility] 67677507078 200 UNIT/ML Active INJECT 70 FlexTouch UNITS UNDER THE SKIN EVERY DAY INCREASE 2 UNITS AFTER 3 DAYS IF BLOOD SUGAR IS HIGH Coumadin [facility] 11465297276 2 MG Orally Active 1 tablet Once a day Ferrous Sulfate [facility] 08939277270 325 (65 Fe) MG Active 1 tablet Orally Once a day Meclizine HCl [facility] 45216132861 25 Active TAKE 1 TABLET BY MOUTH THREE TIMES DAILY HydrALAZINE HCl [facility] 73020467050 25 Orally Two Active 1 tablet times a day with food Topamax [facility] 66819927554 50 MG Orally Active 1 tablet Once a day FreeStyle [facility] 17767748521 - Oct 11, Active as Lancets 2018 directed Lyrica [facility] 74990388825 50 MG Orally Active 1 capsule Twice a day Lyrica [facility] 52694614393 50 Active TAKE 1 CAPSULE BY MOUTH TWICE DAILY HydrALAZINE HCl [facility] 64510751657 25 Orally Two Active 1 tablet times a day with food Tresiba [facility] 27391268900 200 UNIT/ML Active not FlexTouch Subcutaneous defined Results No Known Results Summary Purpose eClinicalWorks Submission
--- OUTSIDE RECORDS SUMMARY | 2018-07-10 13:05 | XMS REPORT ---
[...] Status Dosage System Date Date Anastrozole ND 82614897389 1 MG Orally Active 1 tablet Once a day Protonix ND 80837414657 40 MG Orally Active 1 tablet Once a day Flonase Allergy ND 52289882288 50 MCG/ACT Active 1 spray in Relief Nasally Once a each day nostril Citalopram ND 79524351022 20 MG Orally Active 1 tablet Hydrobromide Once a day Furosemide ND 88058874930 20 MG Orally Active 1 tablet Once a day Lipitor [facility] 57945422811 40 Active 1 TAB(S) ONCE A DAY ORALLY Coumadin [facility] 55507183643 2 MG Orally Active 1 tablet Once a day BD Pen Needle [facility] 99007580015 0 Active USE DAILY Short U/F Lyrica [facility] 19575165634 50 MG Orally Active 1 capsule Twice a day Lasix [facility] 42258361545 40 MG Orally Active 1 tablet Twice a day PRN for edema Meclizine HCl [facility] 37816317867 25 Active TAKE 1 TABLET BY MOUTH THREE TIMES DAILY FreeStyle Lite [facility] 02687355304 0 Active CHECK BLOOD Test SUGAR TWICE DAILY Tresiba [facility] 79960770882 200 UNIT/ML Active INJECT 70 FlexTouch UNITS UNDER THE SKIN EVERY DAY INCREASE 2 UNITS AFTER 3 DAYS IF BLOOD SUGAR IS HIGH Lipitor [facility] 24903319130 40 MG Orally Active 1 tablet Once a day Tresiba [facility] 93007924517 200 UNIT/ML Active not defined FlexTouch Subcutaneous Pantoprazole [facility] 00357636174 40 Active TAKE 1 Sodium TABLET BY MOUTH EVERY DAY HydrALAZINE HCl [facility] 86180077409 25 Orally Two Active 1 tablet times a day with food Ferrous Sulfate [facility] 88502291648 325 (65 Fe) MG Active 1 tablet Orally Once a day Topamax [facility] 34293387599 50 MG Orally Active 1 tablet Once a day FreeStyle [facility] 65401756381 - Oct 11, Active as directed Lancets 2018 Results No Known Results Summary Purpose eClinicalWorks Submission
--- OUTSIDE RECORDS SUMMARY | 2018-07-10 13:05 | XMS REPORT ---
[...] End Status Dosage System Date Date Tresiba [facility] 55275697318 200 UNIT/ML Active not defined FlexTouch Subcutaneous Coumadin [facility] 50301236008 2 MG Orally Active 1 tablet Once a day Ferrous Sulfate [facility] 03192601421 325 (65 Fe) MG Active 1 tablet Orally Once a day Protonix [facility] 82297015577 40 MG Orally Active 1 tablet Once a day BD Pen Needle [facility] 52561811848 0 Active USE DAILY Short U/F Lasix [facility] 30015672755 40 MG Orally Active 1 tablet Twice a day PRN for edema Lipitor [facility] 76633893229 40 MG Orally Active 1 tablet Once a day Lipitor [facility] 45448071973 40 Active 1 TAB(S) ONCE A DAY ORALLY HydrALAZINE HCl [facility] 96650217892 25 Orally Two Active 1 tablet times a day with food Pantoprazole [facility] 47526152238 40 Active TAKE 1 Sodium TABLET BY MOUTH EVERY DAY Januvia [facility] 30078484185 100 MG Orally April Active 1 tablet Once a day 2018 Flonase Allergy [facility] 26378043701 50 MCG/ACT Active 1 spray in Relief Nasally Once a each day nostril FreeStyle Lite [facility] 46594094606 0 Active CHECK BLOOD Test SUGAR TWICE DAILY Anastrozole ND 92787211658 1 MG Orally Active 1 tablet Once a day Lyrica [facility] 24431471279 75 MG Orally Active 1 capsule Twice a day FreeStyle [facility] 70002676851 - Oct 11, Active as directed Lancets 2018 Meclizine HCl [facility] 50258657885 25 Active TAKE 1 TABLET BY MOUTH THREE TIMES DAILY Citalopram [facility] 58696714386 20 MG Orally Active 1 tablet Hydrobromide Once a day Topamax [facility] 02019047338 50 MG Orally Active 1 tablet Once a day Tresiba [facility] 86761969188 200 UNIT/ML Active INJECT 70 FlexTouch UNITS UNDER THE SKIN EVERY DAY INCREASE 2 UNITS AFTER 3 DAYS IF BLOOD SUGAR IS HIGH Results No Known Results Summary Purpose eClinicalWorks Submission
[2018-07-10 13:39] LABS: Absolute Lymphocytes (CBC) 2.2 K/uL (0.7-4.9); Absolute Monocytes 0.4 K/uL (0.1-1.3); Absolute Neutrophil 5.1 K/uL (1.8-8.0); Basophils % 1.1 % (0-1.3); Eosinophils % 4.2 % (0-4.4); Hematocrit 34.9 % (36.0-45.0); Lymphocytes % 27.3 % (15.3-44.8); MPV 9.8 fL (7.6-11.3); Monocytes % 4.6 % (3.3-12.3)
[2018-07-10] MEDS ORDERED: NA CHLORIDE 0.9% 500 ML ONE ×2 (13:44→14:55)
[2018-07-10] MEDS ORDERED: WATER ONE (13:44)
[2018-07-10] MEDS ORDERED: CEFTRIAXONE ONE (13:44)
--- NOTE | 2018-07-10 13:54 | RAD REPORT ---
EXAM DESCRIPTION: CT - Head Brain Wo Cont - 07/10/2018 1:47 pm CLINICAL HISTORY: CONFUSED Headache, hypertension, drowsiness COMPARISON: Head Brain Wo Cont dated 05/30/2018; Head Brain Wo Cont dated 01/31/2018 TECHNIQUE: All CT scans are performed using dose optimization technique as appropriate and may inclu de automated exposure control or mA/KV adjustment according to patient size. FINDINGS: No intracranial hemorrhage, hydrocephalus or extra-axial fluid collection.Mild generalized brain atrophy is present with mild periventricular and deep white matter chronic microvascular ische ken changes.No areas of brain edema or evidence of midline shift. The paranasal sinuses and mastoids are clear. The calvarium is intact. IMPRESSION: No acute intracranial abnormality.
[2018-07-10 14:15] LABS: Urine Bacteria LOADED /HPF (<20); Urine Culture Reflex Order NOT NEEDED
[2018-07-10 14:16] LABS: Potassium 4.9 mmol/L (3.5-5.1)
[2018-07-10 15:00] LABS: Urine Blood 1+ (NEG); Urine Glucose 2+ (NEG); Urine Protein 1+ (NEG); Urine pH 5.5 (5.0-7.0)
[2018-07-10] MEDS ORDERED: INSULIN -REGULAR HUMAN 50 UNIT/0.5 ML ML ONE ×2 (15:13→16:47)
--- NOTE | 2018-07-10 15:26 | EDPHYS ---
Physician Documentation [facility] Name: Sarah Garcia Age: 77 yrs Sex: Female : 1940 Arrival Date: 07/10/2018 Time: 13:03 Bed 5 Private MD: ED Physician John Alas HPI: 07/10 13:12 This 77 yrs old Female presents to ER via Unassigned with complaints of rn Altered Mental Status, High Blood Sugar. 13:12 The patient presents with confusion. Onset: The symptoms/episode began/occurred at an rn unknown time. Possible causes: unknown. Current symptoms: In the emergency department the patient's symptoms have improved. The patient has experienced similar episodes in the past. Per EMS, family called for generalized weakness, unknown onset, slid out of seated position, family told EMS just "not acting right", no focal weakness, stroke screen negative pre EMS. Patient denies focal weakness/numbness. Denies trauma from fall. Denies pain. Glucose > 400. Historical: - Allergies: 13:37 QUINOLONES; sv - PMHx: 13:37 Atrial Fib; Cancer, Breast; Diabetes - IDDM; GERD; High Cholesterol; Hypertension; sv Myocardial infarction; stage 4 kidney disease; Hyperlipidemia; DVT; neuropathy; - PSHx: 13:37 right mastectomy; sv - Immunization history:: Adult Immunizations up to date. - Social history:: Smoking status: Patient/guardian denies using tobacco. - Family history:: not pertinent. - Ebola Screening: : No symptoms or risks identified at this time. - Hospitalizations: : No recent hospitalization is reported. ROS: 13:12 Constitutional: Negative for fever, chills, and weight loss, Eyes: Negative for injury, rn pain, redness, and discharge, Neck: Negative for injury, pain, and swelling, Cardiovascular: Negative for chest pain, palpitations, and edema, Respiratory: Negative for shortness of breath, cough, wheezing, and pleuritic chest pain, Abdomen/GI: Negative for abdominal pain, nausea, vomiting, diarrhea, and constipation, MS/Extremity: Negative for injury and deformity, Skin: Negative for injury, rash, and discoloration, Neuro: + generalized weakness, no focal weakness or tingling, no seizure. Exam: 13:12 Constitutional: Overweight female, no acute distress Head/Face: Normocephalic, rn atraumatic. ENT: dry MM Cardiovascular: Regular rate and rhythm. No pulse deficits. Respiratory: Lungs have equal breath sounds bilaterally, clear to auscultation. No increased work of breathing, no retractions or nasal flaring. Abdomen/GI: soft, non-tender MS/ Extremity: Pulses equal, no cyanosis. Neurovascular intact. Full, normal range of motion. Equal circumference. Neuro: Awake and alert, GCS 15, oriented to person, place, and situation, knows it is sunday. Cranial nerves II-XII grossly intact. Motor strength 5/5 in all extremities. Sensory grossly intact. Cerebellar exam normal. Vital Signs: 13:04 BP 100 / 42; Pulse 82; Resp 16; Temp 98; Pulse Ox 91% on R/A; Weight 78 kg; Height 5 sv ft. 0 in. (152.40 cm); Pain 0/10; 14:21 BP 92 / 65; Pulse 68; Resp 15; Pulse Ox 100% on 2 lpm NC; sv 15:02 BP 122 / 91; Pulse 71; Resp 14; Pulse Ox 100% on 2 lpm NC; sv 15:45 BP 123 / 45; Pulse 67; Resp 13; Pulse Ox 100% on 2 lpm NC; sv 16:18 BP 129 / 95; Pulse 66; Resp 16; Pulse Ox 100% on 2 lpm NC; ae4 13:04 Body Mass Index 33.58 (78.00 kg, 152.40 cm) sv 13:04 Pt placed on O2 \\T\\ 2L per NC. O2 sat up to 100%. sv NIH Stroke Scale Scores: 13:12 NIHSS Score: 0 rn MDM: 13:03 Patient medically screened. rn 15:23 Differential Diagnosis: CVA, electrolyte abnormality, sepsis, UTI, volume depletion. rn Data reviewed: vital signs, nurses notes, lab test result(s), EKG, radiologic studies, CT scan, and as a result, I will admit patient. Counseling: I had a detailed discussion with the patient and/or guardian regarding: the historical points, exam findings, and any diagnostic results supporting the discharge/admit diagnosis, lab results, radiology results, the need for further work-up and treatment in the hospital. Response to treatment: the patient's symptoms have mildly improved after treatment, and as a result, I will admit patient. Admission orders: after a detailed discussion of the patient's condition and case, the admit orders are written by me. ED course: Pt admitted to Dr. Laura for UTI, AMS with delirium, acute on chronic renal failure. Non-focal neuro exam and neg ct head. . 07/10 13:05 Order name: CBC with Diff; Complete Time: 14:33 rn 07/10 13:05 Order name: Basic Metabolic Panel; Complete Time: 14:33 rn 07/10 13:05 Order name: Urine Culture rn 07/10 13:05 Order name: Urine Microscopic Only; Complete Time: 14:33 rn 07/10 13:05 Order name: Blood Culture Adult (2) rn 07/10 13:05 Order name: Procalcitonin; Complete Time: 15:05 rn 07/10 13:05 Order name: CT Head Brain wo Cont; Complete Time: 14:03 rn 07/10 13:16 Order name: Urine Dipstick--Ancillary (enter results); Complete Time: 15:05 bd 07/10 13:30 Order name: Glucose, Ancillary Testing; Complete Time: 13:39 EDMS 07/10 13:05 Order name: IV Start; Complete Time: 13:18 rn 07/10 13:05 Order name: Urine Dipstick-Ancillary (obtain specimen); Complete Time: 13:16 rn 07/10 13:05 Order name: Glucose Level; Complete Time: 13:30 rn 07/10 15:48 Order name: EKG Electrocardiogram; Complete Time: 15:47 EDMS Administered Medications: 13:41 Drug: NS 0.9% 500 ml Route: IV; Rate: bolus; Site: left forearm; sv 15:41 Follow up: Response: No adverse reaction; IV Status: Completed infusion; IV Intake: sv 500ml 13:41 Drug: Rocephin - (cefTRIAXone) 1 grams Route: IVPB; Infused Over: 30 mins; Site: left sv forearm; 15:41 Follow up: Response: No adverse reaction; IV Status: Completed infusion; IV Intake: 10mlsv 14:44 CANCELLED (Physician Discretion): NS 0.9% 1000 ml IV at 1000 ml once sv 14:44 Drug: NS 0.9% 500 ml Route: IV; Rate: bolus; Site: left forearm; sv 15:42 Follow up: Response: No adverse reaction; IV Status: Completed infusion; IV Intake: sv 500ml 15:00 Drug: Insulin Regular Human 10 units {Co-Signature: cornelia (Isa Silva RN).} Route: ae4 Sub-Q; Site: right lower abdomen; 16:00 Follow up: Response: No adverse reaction sv 16:36 Drug: Insulin Regular Human 5 units {Co-Signature: cornelia (Isa Silva RN).} Route: mg2 Sub-Q; Site: right lower abdomen; 17:00 Follow up: Response: No adverse reaction sv Point of Care Testing: Blood Glucose: 13:28 Blood Glucose: 444 mg/dL; iw 16:17 Blood Glucose: 406 mg/dL; ae4 Ranges: Critical Glucose Levels:Adult <50 mg/dl or >400 mg/dl <40 mg/dl or >180 mg/dl Disposition: 07/10/18 15:26 Hospitalization ordered by Wendy Laura for Inpatient Admission. Preliminary diagnosis are Acute on chronic renal failure, Hyperglycemia, unspecified, Dehydration, Weakness, Delirium due to known physiological condition, Urinary tract infection, site not specified. - Bed requested for Telemetry/MedSurg (Inpatient). - Status is Inpatient Admission. ae4 - Condition is Stable. - Problem is new. - Symptoms have improved. UTI on Admission? Yes NIH Stroke Scale - NIH Stroke Score Date: 07/10/2018 Time: 13:12 Total Score = 0 1a. Level of Consciousness (LOC) - 0(Alert) 1b. Level of Consciousness (LOC) (Year \\T\\ Age) - 0(Both) 1c. LOC Commands (Open \\T\\ Closes Eyes/[employer]) - 0(Both) 2. Best Gaze (Lateral Gaze Paresis) - 0(Normal) 3. Visual Field Loss - 0(No visual loss) 4. Facial Palsy - 0(Normal) 5a. Left Arm: Motor (10-second hold) - 0(No drift) 5b. Right Arm: Motor (10-second hold) - 0(No drift) 6a. Left Leg: Motor (5-second hold - always test supine) - 0(No drift) 6b. Right Leg: Motor (5-second hold - always test supine) - 0(No drift) 7. Limb Ataxia (finger/nose \\T\\ heel/roger - test with eyes open) - 0(Absent) 8. Sensory Loss (pinprick arms/legs/face) - 0(Normal) 9. Best Language: Aphasia (description/naming/reading) - 0(No aphasia) 10. Dysarthria (speech clarity - read or repeat words) - 0(Normal) 11. Extinction and Inattention (visual/tactile/auditory/spatial/personal) - 0(No abnormality) Initials: rn Signatures: Dispatcher [employer] EDIsa Reid RN RN sv Lauren Marion RN RN dw John Alas MD MD rn Gardose, Michele, RN RN mg2 Abdi Marcial RN RN ae4 Isa Silva RN sv Corrections: (The following items were deleted from the chart) 14:44 14:33 NS 0.9% 1000 ml IV at 1000 ml once ordered. rn sv 14:44 14:43 NS 0.9% 1000 ml IV at 1000 ml once ordered. sv sv 16:25 15:26 Hospitalization Ordered by Wendy Laura MD for Inpatient Admission. dw Preliminary diagnosis is Acute on chronic renal failure; Hyperglycemia, unspecified; Dehydration; Weakness; Delirium due to known physiological condition; Urinary tract infection, site not specified. Bed requested for Telemetry/MedSurg (Inpatient). Status is Inpatient Admission. Condition is Stable. Problem is new. Symptoms have improved. UTI on Admission? Yes. rn 17:01 16:25 07/10/2018 15:26 Hospitalization Ordered by Wendy Laura MD for ae4 Inpatient Admission. Preliminary diagnosis is Acute on chronic renal failure; Hyperglycemia, unspecified; Dehydration; Weakness; Delirium due to known physiological condition; Urinary tract infection, site not specified. Bed requested for Telemetry/MedSurg (Inpatient). Status is Inpatient Admission. Condition is Stable. Problem is new. Symptoms have improved. UTI on Admission? Yes. dw
--- NOTE | 2018-07-10 15:26 | ER ---
Nurse's Notes [facility] Name: Sarah Garcia Age: 77 yrs Sex: Female : 1940 Arrival Date: 07/10/2018 Time: 13:03 Bed 5 Private MD: Diagnosis: Acute on chronic renal failure;Hyperglycemia, unspecified;Dehydration;Weakness;Delirium due to known physiological condition;Urinary tract infection, site not specified Presentation: 07/10 12:55 Presenting complaint: EMS states: AMS, hyperglycemia BS-138 \T\452 stated by family, sv started about 1218, EMS arrived at 1228. BS-444 BP 120/60 HR-70 R-15 20 G L wrist. A\T\O x4 normally but is A\T\O x 3. Transition of care: patient was not received from another setting of care. Onset of symptoms was July 10, 2018 at 12:18. Risk Assessment: Do you want to hurt yourself or someone else? Patient reports no desire to harm self or others. Initial Sepsis Screen: Does the patient meet any 2 criteria? Altered Mental Status. No. Patient's initial sepsis screen is negative. Does the patient have a suspected source of infection? No. Patient's initial sepsis screen is negative. Care prior to arrival: IV initiated. 22 GA, in the left wrist, Glucose check: 444. 12:55 Method Of Arrival: EMS: [facility] sv 13:12 Acuity: CHRISS 2 sv Triage Assessment: 13:00 General: Appears in no apparent distress. comfortable, obese, Behavior is calm, sv cooperative, appropriate for age. Pain: Denies pain. Neuro: Level of Consciousness is awake, alert, obeys commands, Oriented to person, place, time, situation, Cook Mayonnaise are equal bilaterally Moves all extremities. Speech is normal, Facial symmetry appears normal, Denies blurred vision dizziness, numbness headache. Cardiovascular: Denies chest pain, Patient's skin is warm and dry. Pulses are 3+ in right radial artery and left radial artery. Respiratory: Airway is patent Respiratory effort is even, unlabored, Respiratory pattern is regular, symmetrical. Derm: Skin is normal. Musculoskeletal: Range of motion: intact in all extremities. Historical: - Allergies: 13:37 QUINOLONES; sv - PMHx: 13:37 Atrial Fib; Cancer, Breast; Diabetes - IDDM; GERD; High Cholesterol; Hypertension; sv Myocardial infarction; stage 4 kidney disease; Hyperlipidemia; DVT; neuropathy; - PSHx: 13:37 right mastectomy; sv - Immunization history:: Adult Immunizations up to date. - Social history:: Smoking status: Patient/guardian denies using tobacco. - Family history:: not pertinent. - Ebola Screening: : No symptoms or risks identified at this time. - Hospitalizations: : No recent hospitalization is reported. Screenin:39 Abuse screen: Denies threats or abuse. Denies injuries from another. Nutritional sv screening: No deficits noted. Tuberculosis screening: No symptoms or risk factors identified. Fall Risk Fall in past 12 months (25 points). No secondary diagnosis (0 pts). IV access (20 points). Ambulatory Aid- None/Bed Rest/Nurse Assist (0 pts). Gait- Normal/Bed Rest/Wheelchair (0 pts) Mental Status- Oriented to own ability (0 pts). Total Lutz Fall Scale indicates High Risk Score (45 or more points). Fall prevention measures have been instituted. Side Rails Up X 2 Placed Close to Nursing Station Frequent Obs/Assessments Occuring As available patient and family educated on Fall Prevention Program and Strategies. Assessment: 14:19 Reassessment: Received critical lab value from Mabel from lab, glucose of 426. ae4 14:21 Reassessment: Patient appears in no apparent distress at this time. No changes from sv previously documented assessment. Patient and/or family updated on plan of care and expected duration. Pain level reassessed. Patient is alert, oriented x 3, equal unlabored respirations, skin warm/dry/pink. 15:40 Reassessment: Patient appears in no apparent distress at this time. No changes from sv previously documented assessment. Patient and/or family updated on plan of care and expected duration. Pain level reassessed. Patient is alert, oriented x 3, equal unlabored respirations, skin warm/dry/pink. 16:17 Reassessment: No changes from previously documented assessment. Patient and/or family ae4 updated on plan of care and expected duration. Pain level reassessed. 16:50 Reassessment: Report given to leslie [facility] nurse via telephone. ae4 Vital Signs: 13:04 BP 100 / 42; Pulse 82; Resp 16; Temp 98; Pulse Ox 91% on R/A; Weight 78 kg; Height 5 sv ft. 0 in. (152.40 cm); Pain 0/10; 14:21 BP 92 / 65; Pulse 68; Resp 15; Pulse Ox 100% on 2 lpm NC; sv 15:02 BP 122 / 91; Pulse 71; Resp 14; Pulse Ox 100% on 2 lpm NC; sv 15:45 BP 123 / 45; Pulse 67; Resp 13; Pulse Ox 100% on 2 lpm NC; sv 16:18 BP 129 / 95; Pulse 66; Resp 16; Pulse Ox 100% on 2 lpm NC; ae4 13:04 Body Mass Index 33.58 (78.00 kg, 152.40 cm) sv 13:04 Pt placed on O2 \T\ 2L per NC. O2 sat up to 100%. sv NIH Stroke Scale Scores: 13:12 NIHSS Score: 0 yarn weigher Course: 13:03 Patient arrived in ED. rn 13:03 John Alas MD is Attending Physician. rn 13:05 Patient has correct armband on for positive identification. Placed in gown. Bed in low sv position. Call light in reach. Side rails up X2. media monitor on. Pulse ox on. NIBP on. 13:10 Straight cath inserted, using sterile technique, 16 Fr. Specimen obtained. Returned sv clear yellow urine. 13:11 Isa Silva, RN is Primary Nurse. sv 13:12 Triage completed. sv 13:16 EKG done, by rv repair technician. reviewed by John Alas MD. sm3 13:16 Urine collected: straight cath specimen, cloudy, Amount Returned: 925mL. ms 13:20 Initial lab(s) drawn, by me, sent to lab. First set of blood cultures drawn by me. sv Inserted saline lock: 22 gauge in left forearm, using aseptic technique. ,using aseptic technique. diffusics Blood collected. Flushed left forearm with 5 ml normal saline. 13:35 Arm band placed on. sv 13:[address] via stretcher. sv 13:49 CT Head Brain wo Cont In Process Unspecified. EDMS 14:21 Awaiting re-evaluation by ER provider. sv 15:25 Wendy Laura MD is Hospitalizing Provider. rn 16:28 No provider procedures requiring assistance completed. Patient admitted, IV remains in sv place. intact. 16:37 Primary Nurse role handed off by Isa Silva RN sv Administered Medications: 13:41 Drug: NS 0.9% 500 ml Route: IV; Rate: bolus; Site: left forearm; sv 15:41 Follow up: Response: No adverse reaction; IV Status: Completed infusion; IV Intake: sv 500ml 13:41 Drug: Rocephin - (cefTRIAXone) 1 grams Route: IVPB; Infused Over: 30 mins; Site: left sv forearm; 15:41 Follow up: Response: No adverse reaction; IV Status: Completed infusion; IV Intake: 10mlsv 14:44 CANCELLED (Physician Discretion): NS 0.9% 1000 ml IV at 1000 ml once sv 14:44 Drug: NS 0.9% 500 ml Route: IV; Rate: bolus; Site: left forearm; sv 15:42 Follow up: Response: No adverse reaction; IV Status: Completed infusion; IV Intake: sv 500ml 15:00 Drug: Insulin Regular Human 10 units {Co-Signature: sv (Isa Silva RN).} Route: ae4 Sub-Q; Site: right lower abdomen; 16:00 Follow up: Response: No adverse reaction sv 16:36 Drug: Insulin Regular Human 5 units {Co-Signature: sv (Isa Silva RN).} Route: mg2 Sub-Q; Site: right lower abdomen; 17:00 Follow up: Response: No adverse reaction sv Point of Care Testing: Blood Glucose: 13:28 Blood Glucose: 444 mg/dL; iw 16:17 Blood Glucose: 406 mg/dL; ae4 Ranges: Intake: 15:41 IV: 500ml; Total: 500ml. sv 15:41 IV: 10ml; Total: 510ml. sv 15:42 IV: 500ml; Total: 1010ml. sv Output: 13:10 Urine: 925ml (Straight Cath); Total: 925ml. sv Outcome: 15:26 Decision to Hospitalize by Provider. rn 16:51 Condition: stable ae4 16:51 Instructed on the need for admit. 17:00 Admitted to Med/surg accompanied by tech, via wheelchair, room 409, with chart, Report ae4 called to Tamara receiving nurse. 17:01 Patient left the ED. ae4 NIH Stroke Scale - NIH Stroke Score Date: 07/10/2018 Time: 13:12 Total Score = 0 1a. Level of Consciousness (LOC) - 0(Alert) 1b. Level of Consciousness (LOC) (Year \T\ Age) - 0(Both) 1c. LOC Commands (Open \T\ Closes Eyes/Chemical Detection Expert) - 0(Both) 2. Best Gaze (Lateral Gaze Paresis) - 0(Normal) 3. Visual Field Loss - 0(No visual loss) 4. Facial Palsy - 0(Normal) 5a. Left Arm: Motor (10-second hold) - 0(No drift) 5b. Right Arm: Motor (10-second hold) - 0(No drift) 6a. Left Leg: Motor (5-second hold - always test supine) - 0(No drift) 6b. Right Leg: Motor (5-second hold - always test supine) - 0(No drift) 7. Limb Ataxia (finger/nose \T\ heel/roger - test with eyes open) - 0(Absent) 8. Sensory Loss (pinprick arms/legs/face) - 0(Normal) 9. Best Language: Aphasia (description/naming/reading) - 0(No aphasia) 10. Dysarthria (speech clarity - read or repeat words) - 0(Normal) 11. Extinction and Inattention (visual/tactile/auditory/spatial/personal) - 0(No abnormality) Initials: rn Signatures: Dispatcher [employer] Isa Donaldson RN RN sv Williams, Irene, RN RN iw Solis, Maria ms Nieto, Roman, MD MD rn Gardose, Michele, RN RN mg2 Montes, Shakira 3 Abdi Marcial RN RN ae4 Isa Silva RN sv Corrections: (The following items were deleted from the chart) 13:39 13:04 BP 100 / 42; Pulse 82bpm; Resp 16bpm; Pulse Ox 91% RA; Temp 98F; Pain sv 0/10; Pt placed on O2 \T\ 2L per NC. O2 sat up to 100%.; sv
--- NOTE | 2018-07-10 15:55 | EKG ---
Test Date: 2018-07-10 Test Time: 13:12:48 Supervisor Phosphorus Processing: AG/S MEASUREMENT RESULTS: Intervals: Rate: 71 LA: 176 QRSD: 76 QT: 408 QTc: 443 Sims: P: 32 LA: 176 QRS: -9 T: 49 INTERPRETIVE STATEMENTS: Normal sinus rhythm Moderate voltage criteria for LVH, may be normal variant Inferior infarct, age undetermined Abnormal ECG Compared to ECG 06/14/2018 16:16:06 Atrial premature complex(es) no longer present Myocardial infarct finding still present Electronically Signed On 07-10-18 15:55:03 CDT by Jefe Ewing
[2018-07-10] MEDS: INSULIN -REGULAR HUMAN 50 UNIT/0.5 ML ML SQ SCH ×2 (17:11→20:35)
[2018-07-10] MEDS ORDERED: ONDANSETRON 4 MG/2 ML VIAL IV PRN (17:11)
[2018-07-10] MEDS ORDERED: GLUCAGON 1 MG/VIAL IM PRN (17:22)
[2018-07-10] MEDS ORDERED: D50W 25 GM/50 ML SYRINGE IV PRN (17:22)
--- NOTE | 2018-07-10 17:30 | P.HP ---
Certification for Inpatient Patient admitted to: Observation With expected LOS: <2 Midnights Patient will require the following post-hospital care: None Practitioner: I am a practitioner with admitting privileges, knowledge of patient current condition, hospital course, and medical plan of care. Services: Services provided to patient in accordance with Admission requirements found in Title 42 Section 412.3 of the Code of Federal Regulations Patient History Date of Service: 07/10/18 Primary Care Provider: Dr Laura Reason for admission: Delirium History of Present Illness: This is a 77-year-old female with significant past medical history of type 2 diabetes hypertension hyperlipidemia CAD breast cancer status post mastectomy on the right, PVD, GERD, atrial fibrillation, CHF , recurrent UTI who presented to the ED complaining of having some generalized weakness that started about 4 weeks ago. Patient states that she was "just not right." Patient has been to the hospital for similar complaints in the past and has been found to have urinary tract infection. Patient was also found to have altered mental status per family member. Patient has been able to not get out of her wheelchair. This morning had a fall and was picked up by EMS. In the ER patient had lab work and imaging done. Lab work was consistent with acute kidney injury and dehydration and this patient was admitted for further care Allergies Quinolones Allergy (Verified 07/10/18 17:18) Anaphylaxis Home Medications: ALPRAZolam [Xanax*] 0.25 mg PO BID PRN 05/31/18 Anastrozole [Arimidex*] 1 mg PO DAILY 05/31/18 Aspirin Chewable [Aspirin Chewable*] 81 mg PO DAILY 05/31/18 Atorvastatin Calcium [Lipitor*] 40 mg PO BEDTIME 05/31/18 Chlorthalidone [Hygroton 25mg Tab*] 25 mg PO DAILY 05/31/18 Citalopram [Celexa*] 20 mg PO DAILY 05/31/18 Ferrous Sulfate [Ferrous Sulfate*] 325 mg PO TID 05/31/18 Insulin Degludec [Tresiba Flextouch U-200] 40 unit SQ DAILY 05/31/18 Meclizine HCl [Antivert*] 25 mg PO TID PRN 05/31/18 Metoprolol Succinate [Toprol Xl*] 50 mg PO DAILY 05/31/18 Pantoprazole [Protonix Tab*] 40 mg PO DAILY 05/31/18 Ramipril [Altace*] 2.5 mg PO DAILY 05/31/18 Warfarin Sodium [Coumadin*] 2 mg PO DAILY 05/31/18 Furosemide [Lasix*] 40 mg PO DAILY PRN #30 tab 06/17/18 Magnesium Oxide [Mag 0X*] 400 mg PO BID #60 tab 07/02/18 traMADol HCL [Ultram*] 50 mg PO Q6H PRN #60 tab 07/02/18 - Past Medical/Surgical History Has patient received pneumonia vaccine in the past: Yes Diabetic: Yes -: Atrial fibrillation, Cardiology-Dr. Camarena -: Chronic anticoagulation-Coumadin -: HTN -: GERD -: Chronic renal disease, Baseline GFR-30, Nephrology -: PVD -: Gout -: Depression with Anxiety -: Diabetes mellitus type 2, insulin-dependent -: Coronary disease -: Carotid arterial disease -: Hyperlipidemia -: Appendectomy -: Tubal ligation -: Hysterectomy -: Heart Cath -: right breast lumpectomy with lymph node removal Psychosocial/ Personal History: Patient currently lives in assisted living facility[facility]. She has 10 children. - Family History Brother -: Diabetes Mother -: Heart disease, Hypertension, Diabetes Notes: arthritis - Social History Smoking Status: Never smoker Alcohol use: No CD- Drugs: No Caffeine use: Yes Place of Residence: Home Review of Systems 10-point ROS is otherwise unremarkable Physical Examination - Vital Signs Temperature: 98 F Blood Pressure: 129/95 Pulse: 66 Respirations: 16 - Physical Exam General: In no apparent distress, Oriented x2, Delirious Neck: JVD distended Respiratory: Normal air movement, Crackles/rales Cardiovascular: Regular rate/rhythm, Normal S1 S2 Gastrointestinal: Normal bowel sounds, No tenderness Musculoskeletal: No tenderness Integumentary: No rashes Neurological: Normal speech, Abnormal strength, Abnormal tone, Abnormal affect Lymphatics: No axilla or inguinal lymphadenopathy - Studies Laboratory Data (last 24 hrs) 07/10/18 13:20: Sodium 139, Potassium 4.9, BUN 126 H, Creatinine 3.12 H, Glucose 426 H* 07/10/18 13:20: WBC 8.1, Hgb 11.2 L, Hct 34.9 L, Plt Count 224 Assessment and Plan - Problems (Diagnosis) (1) UTI (urinary tract infection) Onset Date: 07/06/15 Current Visit: No Status: Acute Plan: Patient with concern for urinary tract infection. Past medical history of multi -drug resistant UTI -UA concerning for UTI -will start on IV meropenem at this time -will follow up with urine culture Qualifiers: Urinary tract infection type: acute cystitis Hematuria presence: without hematuria Qualified Code(s): N30.00 - Acute cystitis without hematuria (2) Acute encephalopathy Current Visit: Yes Status: Acute Plan: Toxic encephalopathy most likely secondary to UTI -head CT in the ER negative for any acute abnormality -monitor closely here in the hospital (3) Acute kidney injury superimposed on chronic kidney disease Onset Date: 09/25/17 Current Visit: No Status: Acute Plan: Acute kidney injury on chronic kidney injury stage III most likely secondary to urinary tract infection -currently BUN and creatinine elevated Cr 3.12 -IV fluids with caution due to history of CHF -Will consult nephrology if needed. -avoid nephrotoxic agent (4) Weakness generalized Onset Date: 11/09/14 Current Visit: No Status: Chronic Plan: Generalized weakness most likely secondary to urinary tract infection -will consult PT at this time -patient may need to have home health arranged when she is ready to be discharged home (5) Atrial fibrillation Onset Date: 11/27/17 Current Visit: No Status: Chronic Plan: Chronic atrial fibrillation. -currently stable. Will restart home medication. Qualifiers: Atrial fibrillation type: chronic Qualified Code(s): I48.2 - Chronic atrial fibrillation (6) CAD (coronary artery disease) Onset Date: 11/27/17 Current Visit: No Status: Chronic Plan: Stable at this time -will restart home medication Qualifiers: Coronary Disease-Associated Artery/Lesion type: [place] artery [place] vs. transplanted heart: [place] heart Associated angina: without angina Qualified Code(s): I25.10 - Atherosclerotic heart disease of [place] coronary artery without angina pectoris (7) CHF (congestive heart failure) Onset Date: 07/06/15 Current Visit: No Status: Chronic Plan: History of congestive heart failure -last echocardiogram done 2018 -with normal ejection fraction and diastolic dysfunction -will monitor closely with IVF Qualifiers: Heart failure type: other Qualified Code(s): I50.9 - Heart failure, unspecified (8) Diabetes mellitus Onset Date: 07/06/15 Current Visit: No Status: Chronic Plan: ISS and accucheck ACHS Qualifiers: Diabetes mellitus type: type 2 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 insulin use: without local intermodal 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 use Diabetes mellitus complication status: with hyperglycemia Qualified Code(s): E11.65 - Type 2 diabetes mellitus with hyperglycemia (9) HTN (hypertension) Onset Date: 04/17/16 Current Visit: No Status: Chronic Plan: Stable at this time -restarted on home medication Qualifiers: Hypertension type: essential hypertension Qualified Code(s): I10 - Essential (primary) hypertension (10) Hyperlipidemia Onset Date: 11/27/17 Current Visit: No Status: Chronic Plan: Restarted on home medication Qualifiers: Hyperlipidemia type: unspecified Qualified Code(s): E78.5 - Hyperlipidemia , unspecified - Advance Directives Does patient have a Living Will: Yes Does patient have a Durable POA for Healthcare: Yes
[2018-07-10 18:42] LABS: Protime INR 2.36
[2018-07-10] MEDS ORDERED: BISACODYL E.C. 5 MG TAB PO ONE (19:59)
[2018-07-10] MEDS: Meropenem 500 MG in NA CHLORIDE 0.9% 100 ML IV SCH (20:35)
[2018-07-10] MEDS: HEPARIN 5000 UNIT/ML 1 ML VIAL SQ SCH (20:36)
[2018-07-11] MEDS ORDERED: Meropenem 1000 MG/VIAL IV SCH (01:00)
[2018-07-11 06:31] LABS: Protime INR 2.17
[2018-07-11 06:39] LABS: Absolute Lymphocytes (CBC) 2.3 K/uL (0.7-4.9); Absolute Monocytes 0.4 K/uL (0.1-1.3); Absolute Neutrophil 4.8 K/uL (1.8-8.0); Basophils % 0.4 % (0-1.3); Eosinophils % 2.9 % (0-4.4); Hematocrit 32.8 % (36.0-45.0); Lymphocytes % 29.3 % (15.3-44.8); MPV 9.9 fL (7.6-11.3); RBC Red Blood Cell Count 3.55 M/uL (3.86-4.86)
[2018-07-11 06:46] LABS: Albumin 2.9 g/dL (3.4-5.0); Bilirubin Total 0.3 mg/dL (0.2-1.0); Potassium 4.2 mmol/L (3.5-5.1)
[2018-07-11] MEDS: INSULIN -REGULAR HUMAN 50 UNIT/0.5 ML ML SQ SCH ×4 (07:30→20:56)
[2018-07-11] MEDS: Meropenem 500 MG in NA CHLORIDE 0.9% 100 ML IV SCH ×2 (08:00→20:55)
[2018-07-11] MEDS: HEPARIN 5000 UNIT/ML 1 ML VIAL SQ SCH ×2 (08:25→20:56)
[2018-07-11] MEDS ORDERED: ENOXAPARIN 40 MG/0.4 ML SQ SCH (09:00)
--- NOTE | 2018-07-11 12:24 | P.PN ---
Subjective Date of Service: 07/11/18 Primary Care Provider: Dr Laura Chief Complaint: Delirium Subjective: No C/O voiced, Tolerating diet, Improving, Working w/ PT, Doing well Review of Systems 10-point ROS is otherwise unremarkable Physical Examination - Vital Signs Temperature: 97.7 F Blood Pressure: 111/79 Pulse: 68 Respirations: 16 Pulse Ox (%): 97 - Physical Exam General: Alert, In no apparent distress HEENT: Atraumatic, PERRLA, EOMI Neck: Supple, JVD not distended Respiratory: Clear to auscultation bilaterally, Normal air movement Cardiovascular: Regular rate/rhythm, Normal S1 S2 Gastrointestinal: Normal bowel sounds, No tenderness Musculoskeletal: No tenderness Integumentary: No rashes Neurological: Normal speech, Normal tone, Normal affect Lymphatics: No axilla or inguinal lymphadenopathy - Studies Laboratory Data (last 24 hrs) 07/10/18 13:20: Sodium 139, Potassium 4.9, BUN 126 H, Creatinine 3.12 H, Glucose 426 H* 07/10/18 13:20: WBC 8.1, Hgb 11.2 L, Hct 34.9 L, Plt Count 224 Medications List Reviewed: Yes Assessment And Plan - Current Problems (Diagnosis) (1) UTI (urinary tract infection) Onset Date: 07/06/15 Current Visit: No Status: Acute Plan: Patient with concern for urinary tract infection. Past medical history of multi -drug resistant UTI -UA concerning for UTI -On IV meropenem at this time -Urine Culture Pending Qualifiers: Urinary tract infection type: acute cystitis Hematuria presence: without hematuria Qualified Code(s): N30.00 - Acute cystitis without hematuria (2) Acute encephalopathy Current Visit: Yes Status: Acute Plan: Toxic encephalopathy most likely secondary to UTI -head CT in the ER negative for any acute abnormality -monitor closely here in the hospital (3) Acute kidney injury superimposed on chronic kidney disease Onset Date: 09/25/17 Current Visit: No Status: Acute Plan: Acute kidney injury on chronic kidney injury stage III most likely secondary to urinary tract infection -currently BUN and creatinine improved today -IV fluids with caution due to history of CHF -avoid nephrotoxic agent (4) Weakness generalized Onset Date: 11/09/14 Current Visit: No Status: Chronic Plan: Generalized weakness most likely secondary to urinary tract infection -PT/OT consulted -patient may need to have home health arranged when she is ready to be discharged home (5) Atrial fibrillation Onset Date: 11/27/17 Current Visit: No Status: Chronic Plan: Chronic atrial fibrillation. -currently stable. Will restart home medication. Qualifiers: Atrial fibrillation type: chronic Qualified Code(s): I48.2 - Chronic atrial fibrillation (6) CAD (coronary artery disease) Onset Date: 11/27/17 Current Visit: No Status: Chronic Plan: Stable at this time -will restart home medication Qualifiers: Coronary Disease-Associated Artery/Lesion type: [place] artery [place] vs. transplanted heart: [place] heart Associated angina: without angina Qualified Code(s): I25.10 - Atherosclerotic heart disease of [place] coronary artery without angina pectoris (7) CHF (congestive heart failure) Onset Date: 07/06/15 Current Visit: No Status: Chronic Plan: History of congestive heart failure -last echocardiogram done 2018 -with normal ejection fraction and diastolic dysfunction -will monitor closely with IVF Qualifiers: Heart failure type: other Qualified Code(s): I50.9 - Heart failure, unspecified (8) Diabetes mellitus Onset Date: 07/06/15 Current Visit: No Status: Chronic Plan: ISS and accucheck ACHS Qualifiers: Diabetes mellitus type: type 2 Diabetes mellitus jail insulin use: without intermediate manager use Diabetes mellitus complication status: with hyperglycemia Qualified Code(s): E11.65 - Type 2 diabetes mellitus with hyperglycemia (9) HTN (hypertension) Onset Date: 04/17/16 Current Visit: No Status: Chronic Plan: Stable at this time -restarted on home medication Qualifiers: Hypertension type: essential hypertension Qualified Code(s): I10 - Essential (primary) hypertension (10) Hyperlipidemia Onset Date: 11/27/17 Current Visit: No Status: Chronic Plan: Restarted on home medication Qualifiers: Hyperlipidemia type: unspecified Qualified Code(s): E78.5 - Hyperlipidemia , unspecified Discharge Plan: Home Plan to discharge in: 48 Hours - Code Status/Comfort Care Code Status Assessed: Yes Critical Care: No
[2018-07-12 06:18] LABS: Absolute Lymphocytes (CBC) 1.8 K/uL (0.7-4.9); Absolute Monocytes 0.3 K/uL (0.1-1.3); Absolute Neutrophil 2.9 K/uL (1.8-8.0); Hematocrit 34.1 % (36.0-45.0); Lymphocytes % 31.7 % (15.3-44.8); MPV 9.9 fL (7.6-11.3); Monocytes % 6.2 % (3.3-12.3); RBC Red Blood Cell Count 3.67 M/uL (3.86-4.86)
[2018-07-12 06:27] LABS: Protime INR 1.61
[2018-07-12 06:40] LABS: Albumin 2.7 g/dL (3.4-5.0); Bilirubin Total 0.4 mg/dL (0.2-1.0); Potassium 4.5 mmol/L (3.5-5.1)
[2018-07-12] MEDS: INSULIN -REGULAR HUMAN 50 UNIT/0.5 ML ML SQ SCH ×4 (09:48→21:03)
[2018-07-12] MEDS: HEPARIN 5000 UNIT/ML 1 ML VIAL SQ SCH ×2 (09:48→21:03)
[2018-07-12] MEDS: Meropenem 500 MG in NA CHLORIDE 0.9% 100 ML IV SCH ×2 (09:50→21:06)
[2018-07-12] MEDS ORDERED: TRAMADOL HCL 50 MG TAB PO PRN (12:01)
--- NOTE | 2018-07-12 12:01 | P.PN ---
Subjective Date of Service: 07/12/18 Primary Care Provider: Dr Laura Chief Complaint: Delirium Patient seen and examined at bedside with RN. Chart reviewed. Case discussed with family member at bedside. Currently patient is doing much better than before. Denies having any fever chills nausea vomiting or any generalized weakness. Is working with physical therapy at this time. Review of Systems 10-point ROS is otherwise unremarkable Physical Examination - Vital Signs Temperature: 97.4 F Blood Pressure: 136/50 Pulse: 68 Respirations: 18 Pulse Ox (%): 94 - Physical Exam General: Alert, In no apparent distress HEENT: Atraumatic, PERRLA, EOMI Neck: Supple, JVD not distended Respiratory: Clear to auscultation bilaterally, Normal air movement Cardiovascular: Regular rate/rhythm, Normal S1 S2 Gastrointestinal: Normal bowel sounds, No tenderness Musculoskeletal: No tenderness Integumentary: No rashes Neurological: Normal speech, Normal tone, Normal affect Lymphatics: No axilla or inguinal lymphadenopathy - Studies Laboratory Data (last 24 hrs) 07/12/18 05:56: PT 18.7 H, INR 1.61, APTT 32.5 07/12/18 05:56: Sodium 143, Potassium 4.5, BUN 97 H, Creatinine 2.31 H, Glucose 169 H, Total Bilirubin 0.4, AST 11 L, ALT 16, Alkaline Phosphatase 110 07/12/18 05:56: WBC 5.6 D, Hgb 11.2 L, Hct 34.1 L, Plt Count 185 Microbiology Data (last 24 hrs): 07/10/18 13:38 Blood - Blood Anaerobic Blood Culture - Final 07/10/18 13:20 Blood - Blood Anaerobic Blood Culture - Final Medications List Reviewed: Yes Assessment And Plan - Current Problems (Diagnosis) (1) UTI (urinary tract infection) Onset Date: 07/06/15 Current Visit: No Status: Acute Plan: Patient with concern for urinary tract infection. Past medical history of multi -drug resistant UTI -UA concerning for UTI -On IV meropenem at this time -Urine Culture Pending growing Gram negative rods thus far Qualifiers: Urinary tract infection type: acute cystitis Hematuria presence: without hematuria Qualified Code(s): N30.00 - Acute cystitis without hematuria (2) Acute encephalopathy Current Visit: Yes Status: Acute Plan: Toxic encephalopathy most likely secondary to UTI -head CT in the ER negative for any acute abnormality -monitor closely here in the hospital (3) Acute kidney injury superimposed on chronic kidney disease Onset Date: 09/25/17 Current Visit: No Status: Acute Plan: Acute kidney injury on chronic kidney injury stage III most likely secondary to urinary tract infection -currently BUN and creatinine improved today -IV fluids with caution due to history of CHF -avoid nephrotoxic agent (4) Weakness generalized Onset Date: 11/09/14 Current Visit: No Status: Chronic Plan: Generalized weakness most likely secondary to urinary tract infection -PT/OT consulted -patient may need to have home health arranged when she is ready to be discharged home versus long-term facility (5) Atrial fibrillation Onset Date: 11/27/17 Current Visit: No Status: Chronic Plan: Chronic atrial fibrillation. -currently stable. Has been restarted on home medication Qualifiers: Atrial fibrillation type: chronic Qualified Code(s): I48.2 - Chronic atrial fibrillation (6) CAD (coronary artery disease) Onset Date: 11/27/17 Current Visit: No Status: Chronic Plan: Stable at this time -on home medication at this time Qualifiers: Coronary Disease-Associated Artery/Lesion type: [place] artery [place] vs. transplanted heart: [place] heart Associated angina: without angina Qualified Code(s): I25.10 - Atherosclerotic heart disease of [place] coronary artery without angina pectoris (7) CHF (congestive heart failure) Onset Date: 07/06/15 Current Visit: No Status: Chronic Plan: History of congestive heart failure -last echocardiogram done 2018 -with normal ejection fraction and diastolic dysfunction -will monitor closely with IVF Qualifiers: Heart failure type: other Qualified Code(s): I50.9 - Heart failure, unspecified (8) Diabetes mellitus Onset Date: 07/06/15 Current Visit: No Status: Chronic Plan: ISS and accucheck ACHS Qualifiers: Diabetes mellitus type: type 2 Diabetes mellitus correction insulin use: without correction use Diabetes mellitus complication status: with hyperglycemia Qualified Code(s): E11.65 - Type 2 diabetes mellitus with hyperglycemia (9) HTN (hypertension) Onset Date: 04/17/16 Current Visit: No Status: Chronic Plan: Stable at this time -restarted on home medication Qualifiers: Hypertension type: essential hypertension Qualified Code(s): I10 - Essential (primary) hypertension (10) Hyperlipidemia Onset Date: 11/27/17 Current Visit: No Status: Chronic Plan: Restarted on home medication Qualifiers: Hyperlipidemia type: unspecified Qualified Code(s): E78.5 - Hyperlipidemia , unspecified - Plan Pending clinical improvement at this time. Pending urine culture at this time. Discharge Plan: Other Plan to discharge in: 48 Hours - Code Status/Comfort Care Code Status Assessed: Yes Critical Care: No
[2018-07-12] MEDS: MECLIZINE HCL 12.5 MG TAB PO SCH ×2 (16:53→21:03)
[2018-07-12] MEDS ORDERED: ATORVASTATIN 40 MG TAB PO SCH (21:00)
[2018-07-12] MEDS: HYDRALAZINE HCL 25 MG TABLET PO SCH (21:04)
[2018-07-13 00:11] VITALS: O2SAT 98
[2018-07-13 05:44] LABS: Absolute Monocytes 0.4 K/uL (0.1-1.3); Absolute Neutrophil 3.8 K/uL (1.8-8.0); Basophils % 0.5 % (0-1.3); Eosinophils % 8.3 % (0-4.4); Hematocrit 33.7 % (36.0-45.0); Lymphocytes % 29.2 % (15.3-44.8); MPV 9.6 fL (7.6-11.3); Monocytes % 6.3 % (3.3-12.3); RBC Red Blood Cell Count 3.59 M/uL (3.86-4.86)
[2018-07-13 05:48] LABS: Protime INR 1.32
[2018-07-13 05:58] VITALS: BMI 34.6
[2018-07-13 05:59] LABS: Albumin 2.7 g/dL (3.4-5.0); Bilirubin Total 0.4 mg/dL (0.2-1.0); Magnesium 2.4 mg/dL (1.8-2.4); Potassium 4.4 mmol/L (3.5-5.1); Protein, Total 6.8 g/dL (6.4-8.2)
[2018-07-13] MEDS: INSULIN -REGULAR HUMAN 50 UNIT/0.5 ML ML SQ SCH ×3 (08:31→16:44)
--- NOTE | 2018-07-13 08:36 | RAD REPORT ---
EXAM DESCRIPTION: RAD - Shoulder Left 2 View - 07/13/2018 5:52 am CLINICAL HISTORY: Left shoulder pain FINDINGS: No fracture or dislocation is seen. 4 millimeter area sclerosis within humeral head is nonspecific. Follow-up x-ray in 3 months could be obtained to assess stability. Osteoporosis Mild osteoarthritis involves AC joint
[2018-07-13] MEDS: Meropenem 500 MG in NA CHLORIDE 0.9% 100 ML IV SCH (08:47)
[2018-07-13] MEDS: MECLIZINE HCL 12.5 MG TAB PO SCH ×2 (08:52→14:21)
[2018-07-13] MEDS: HYDRALAZINE HCL 25 MG TABLET PO SCH (08:53)
[2018-07-13] MEDS: HEPARIN 5000 UNIT/ML 1 ML VIAL SQ SCH (08:53)
[2018-07-13] MEDS ORDERED: PREGABALIN 75 MG CAP PO SCH (09:00)
[2018-07-13] MEDS ORDERED: WARFARIN SODIUM 2 MG TAB PO SCH (09:00)
[2018-07-13] MEDS ORDERED: ANASTROZOLE 1 MG TAB PO SCH (09:00)
[2018-07-13] MEDS ORDERED: FUROSEMIDE 40 MG TABLET PO SCH (09:00)
[2018-07-13] MEDS ORDERED: CITALOPRAM 10 MG TABLET PO SCH (09:00)
--- NOTE | 2018-07-13 11:06 | P.DS ---
Admission Date: 07/12/18 Discharge Date: 07/13/18 Primary Care Provider: Dr Laura Reason for Admission: Delirium - Problems (1) UTI (urinary tract infection) Onset Date: 07/06/15 Current Visit: No Status: Acute Qualifiers: Urinary tract infection type: acute cystitis Hematuria presence: without hematuria Qualified Code(s): N30.00 - Acute cystitis without hematuria (2) Acute encephalopathy Current Visit: Yes Status: Acute (3) Acute kidney injury superimposed on chronic kidney disease Onset Date: 09/25/17 Current Visit: No Status: Acute (4) Weakness generalized Onset Date: 11/09/14 Current Visit: No Status: Chronic (5) Atrial fibrillation Onset Date: 11/27/17 Current Visit: No Status: Chronic Qualifiers: Atrial fibrillation type: chronic Qualified Code(s): I48.2 - Chronic atrial fibrillation (6) CAD (coronary artery disease) Onset Date: 11/27/17 Current Visit: No Status: Chronic Qualifiers: Coronary Disease-Associated Artery/Lesion type: [place] artery [place] vs. transplanted heart: [place] heart Associated angina: without angina Qualified Code(s): I25.10 - Atherosclerotic heart disease of [place] coronary artery without angina pectoris (7) CHF (congestive heart failure) Onset Date: 07/06/15 Current Visit: No Status: Chronic Qualifiers: Heart failure type: other Qualified Code(s): I50.9 - Heart failure, unspecified (8) Diabetes mellitus Onset Date: 07/06/15 Current Visit: No Status: Chronic Qualifiers: Diabetes mellitus type: type 2 Diabetes mellitus customer marketing manager insulin use: without customer marketing manager use Diabetes mellitus complication status: with hyperglycemia Qualified Code(s): E11.65 - Type 2 diabetes mellitus with hyperglycemia (9) HTN (hypertension) Onset Date: 04/17/16 Current Visit: No Status: Chronic Qualifiers: Hypertension type: essential hypertension Qualified Code(s): I10 - Essential (primary) hypertension (10) Hyperlipidemia Onset Date: 11/27/17 Current Visit: No Status: Chronic Qualifiers: Hyperlipidemia type: unspecified Qualified Code(s): E78.5 - Hyperlipidemia , unspecified Brief History of Present Illness: This is a 77-year-old female with significant past medical history of type 2 diabetes hypertension hyperlipidemia CAD breast cancer status post mastectomy on the right, PVD, GERD, atrial fibrillation, CHF , recurrent UTI who presented to the ED complaining of having some generalized weakness that started about 4 weeks ago. Patient states that she was "just not right." Patient has been to the hospital for similar complaints in the past and has been found to have urinary tract infection. Patient was also found to have altered mental status per family member. Patient has been able to not get out of her wheelchair. This morning had a fall and was picked up by EMS. In the ER patient had lab work and imaging done. Lab work was consistent with acute kidney injury and dehydration and this patient was admitted for further care Hospital Course: During the course of her stay patient was found to have UTI. Urine culture positive for E coli. At discharge patient will continue with Augmentin 500 mg BID for 4 more days. UTI prevention is to follow. Patient also had acute on chronic renal disease, stage III. Patient has done well. Renal function now stable. Recommend no further use of nonsteroidal anti -inflammatories. Future medications will need to be renally dosed. Patient may follow up with nephrology as directed. Patient with chronic atrial fibrillation on chronic anti coagulation therapy, CAD, hypertension, hyperlipidemia. Patient will continue with her current medications: Metoprolol XL 50 mg daily, chlorthalidone 25 mg daily, aspirin 81 mg daily, Lipitor 40 mg daily. Recommend to recheck INR weekly. Recommendation to maintain INR between 2 and 3. Patient with diabetes type 2. Patient will continue with her basal insulin- Tresiba 40 mg subcu daily. Recommend to maintain blood sugars less 140 fasting and less than 200 after meals. Further adjustment can be done by her PCP. Patient with chronic diastolic CHF. Patient will continue with Lasix 40 mg daily as needed for increase edema to the lower extremities and shortness of breath. Recommend to monitor weight daily. If her weight increases by more than 5 lb she is to contact her PCP for further recommendation. Patient will continue with 1500 cc per day fluid restriction. Patient with depression. Patient will continue with Celexa 20 mg daily. Patient with iron deficiency anemia. Patient will continue with iron 325 mg 3 times a day. Vital Signs/Physical Exam: Temp Pulse Resp BP Pulse Ox 97.3 F 77 18 133/58 L 96 07/13/18 08:00 07/13/18 08:52 07/13/18 08:00 07/13/18 08:52 07/13/18 08:00 General: Alert, In no apparent distress HEENT: Atraumatic, PERRLA, EOMI Neck: Supple, JVD not distended Respiratory: Clear to auscultation bilaterally, Normal air movement Cardiovascular: Regular rate/rhythm, Normal S1 S2 Gastrointestinal: Normal bowel sounds, No tenderness Musculoskeletal: No tenderness Integumentary: No rashes Neurological: Normal speech, Normal tone, Normal affect Lymphatics: No axilla or inguinal lymphadenopathy Laboratory Data at Discharge: WBC 6.9 K/uL (4.3-10.9) D 07/13/18 05:27 Hgb 10.9 g/dL (12.0-15.0) L 07/13/18 05:27 Hct 33.7 % (36.0-45.0) L 07/13/18 05:27 Plt Count 189 K/uL (152-406) 07/13/18 05:27 PT 15.4 SECONDS (9.5-12.5) H 07/13/18 05:27 INR 1.32 07/13/18 05:27 APTT 37.6 SECONDS (24.3-36.9) H 07/13/18 05:27 Sodium 142 mmol/L (136-145) 07/13/18 05:27 Potassium 4.4 mmol/L (3.5-5.1) 07/13/18 05:27 BUN 84 mg/dL (7-18) H 07/13/18 05:27 Creatinine 2.01 mg/dL (0.55-1.3) H 07/13/18 05:27 Glucose 182 mg/dL (74-106) H 07/13/18 05:27 Magnesium 2.4 mg/dL (1.8-2.4) 07/13/18 05:27 Total Bilirubin 0.4 mg/dL (0.2-1.0) 07/13/18 05:27 AST 13 U/L (15-37) L 07/13/18 05:27 ALT 14 U/L (12-78) 07/13/18 05:27 Alkaline Phosphatase 132 U/L (45-117) H 07/13/18 05:27 Home Medications: Anastrozole [Arimidex*] 1 mg PO DAILY 05/31/18 Atorvastatin Calcium [Lipitor*] 40 mg PO BEDTIME 05/31/18 Citalopram [Celexa*] 20 mg PO DAILY 05/31/18 Insulin Degludec [Tresiba Flextouch U-200] 40 unit SQ DAILY 05/31/18 Meclizine HCl [Antivert*] 25 mg PO TID 05/31/18 Warfarin Sodium [Coumadin*] 2 mg PO DAILY 05/31/18 Magnesium Oxide [Mag 0X*] 400 mg PO BID #60 tab 07/02/18 traMADol HCL [Ultram*] 50 mg PO Q6H PRN #60 tab 07/02/18 Furosemide [Lasix*] 40 mg PO DAILY 07/11/18 Hydralazine [Apresoline*] 25 mg PO BID 07/11/18 Pregabalin [Lyrica*] 1 tab PO DAILY 07/11/18 Amox/Clavulanate [Augmentin 875-125 Tab] 1 each PO BID #28 tab 07/13/18 New Medications: Amox/Clavulanate [Augmentin 875-125 Tab] 1 each PO BID #28 tab
[2018-07-13 16:41] VITALS: BP 102/53; TEMP 97.8
== END 2018-07-13 17:14 | disposition home health service (06) | DRG 682 ==
LOC: ER 12:59 → ERHOLD 15:50 → 4TH 16:50 → OBSVTOIN 07-12 07:01
PROVIDERS: ADMIT Family Medicine; ATTEND Family Medicine
DX: N17.9 Acute kidney failure, unspecified (principal); G92 Toxic encephalopathy; N30.00 Acute cystitis without hematuria; I13.0 Hypertensive heart and chronic kidney disease with heart failure and stage 1 through stage 4 chronic kidney disease, or unspecified chronic kidney disease; I50.32 Chronic diastolic (congestive) heart failure; E86.0 Dehydration; B96.20 Unspecified Escherichia coli [E. coli] as the cause of diseases classified elsewhere; E11.22 Type 2 diabetes mellitus with diabetic chronic kidney disease; E11.65 Type 2 diabetes mellitus with hyperglycemia; N18.3 Chronic kidney disease, stage 3 (moderate); I48.2 Chronic atrial fibrillation; I25.10 Atherosclerotic heart disease of native coronary artery without angina pectoris; E78.5 Hyperlipidemia, unspecified; K21.9 Gastro-esophageal reflux disease without esophagitis; E11.51 Type 2 diabetes mellitus with diabetic peripheral angiopathy without gangrene; F41.8 Other specified anxiety disorders; D50.9 Iron deficiency anemia, unspecified; Z79.01 Long term (current) use of anticoagulants; Z79.82 Long term (current) use of aspirin; Z79.4 Long term (current) use of insulin; Z85.3 Personal history of malignant neoplasm of breast; Z90.11 Acquired absence of right breast and nipple
CPT/HCPCS: 36415; 51702; 70450; 80048; 80053; 81003; 81015; 82962; 83735; 84145; 85025; 85610; 85730; 87040; 87077; 87086; 87088; 87186; 93005; 96365; 96366; 96372; 97116; 97162; 97166; 97530; 99285; G0378; J0696; J1644

== ENCOUNTER 2018-07-15 14:25 | Inpatient (IN) | payer OTHER ==
--- OUTSIDE RECORDS SUMMARY | 2018-07-15 14:57 | XMS REPORT ---
[...] Status Dosage System Date Date FreeStyle Lite [facility] 83579393104 0 Active CHECK Test BLOOD SUGAR TWICE DAILY Lipitor [facility] 94909848083 40 MG Active 1 TAB(S) ONCE A DAY ORALLY Losartan [facility] 51461207156 100 MG Orally Active 1 tablet Potassium Once a day Meclizine HCl [facility] 83585008753 25 Active CHEW AND SWALLOW 1 TABLET THREE TIMES DAILY Flonase Allergy [facility] 51512760142 50 MCG/ACT Active 1 spray in Relief Nasally Once a each day nostril Ferrous Sulfate [facility] 63522313129 325 (65 Fe) MG Active 1 tablet Orally Once a day Tresiba FlexTouch [facility] 12517280014 200 UNIT/ML Active 70 UNITS Subcutaneous DAILY Increase 2 untis after 3 day if BS are high Citalopram [facility] 77573098054 20 MG Orally Active 1 tablet Hydrobromide Once a day Chlorthalidone [facility] 45462076057 25 MG Orally Active 1 tablet Once a day in the morning with food Tresiba FlexTouch [facility] 07129266517 200 UNIT/ML Active not Subcutaneous defined Anastrozole [facility] 32153802875 1 MG Orally Active 1 tablet Once a day Topamax [facility] 60016117366 50 MG Orally Active 1 tablet Once a day Protonix [facility] 46860311025 40 MG Active 1 TAB(S) ONCE A DAY ORALLY Lipitor [facility] 97431511476 40 MG Orally Active 1 tablet Once a day Coumadin [facility] 91679521045 2 MG Orally Active 1 tablet Once a day BD Pen Needle [facility] 44301863449 0 Active USE DAILY Short U/F Citalopram [facility] 27897005731 20 Active TAKE 1 Hydrobromide TABLET BY MOUTH EVERY DAY Protonix [facility] 71732304324 40 MG Orally Active 1 tablet Once a day Results No Known Results Summary Purpose eClinicalWorks Submission
--- OUTSIDE RECORDS SUMMARY | 2018-07-15 14:57 | XMS REPORT ---
:1940 Author Organization eClinicalWorks Care Team Providers Name Role Phone Valentín [facility] Provider Role Unavailable Allergies No Known Allergies [...] Dosage System Date [facility] 35223132721 200 UNIT/ML Active 70 UNITS FlexTouch Subcutaneous DAILY Increase 2 untis after 3 day if BS are high Results No Known Results Summary Purpose eClinicalWorks Submission
--- OUTSIDE RECORDS SUMMARY | 2018-07-15 14:57 | XMS REPORT ---
:1940 [facility] Address [address] [place] [address] Care Team Providers Name Role Phone Unavailable Unavailable Unavailable Problems This patient has no known problems. Allergies, Adverse Reactions, Alerts This patient has no known allergies or adverse reactions. Medications This patient has no known medications.
--- OUTSIDE RECORDS SUMMARY | 2018-07-15 14:57 | XMS REPORT ---
:1940 Author Organization eClinicalWorks Care Team Providers Name Role Phone Laura, [facility] Provider Role Unavailable Allergies, Adverse [...] End Status Dosage System Date Date Citalopram [facility] 19484811794 20 MG Orally Active 1 tablet Hydrobromide Once a day Coumadin ND 00708405133 2 MG Orally Active 1 tablet Once a day Lipitor ND 35618096873 40 MG Active 1 TAB(S) ONCE A DAY ORALLY Meclizine HCl ND 64031516023 25 MG Orally Active 1 tablet Three times a day Ferrous Sulfate ND 67118430650 325 (65 Fe) MG May Active 1 tablet Orally Once a 2017 day Tresiba FlexTouch ND 55541622892 200 UNIT/ML Active not Subcutaneous defined Chlorthalidone ND 67107755343 25 MG Orally Active 1 tablet Once a day in the morning with food FreeStyle Lite [facility] 21642104232 0 Active CHECK Test BLOOD SUGAR TWICE DAILY Flonase Allergy [facility] 77799293404 50 MCG/ACT Active 1 spray in Relief Nasally Once a each day nostril Meclizine HCl [facility] 62285960876 25 Active CHEW AND SWALLOW 1 TABLET THREE TIMES DAILY Anastrozole [facility] 05144887488 1 MG Orally Active 1 tablet Once a day Protonix [facility] 61270149935 40 MG Active 1 TAB(S) ONCE A DAY ORALLY Losartan [facility] 39728905751 100 MG Orally Active 1 tablet Potassium Once a day Topamax [facility] 95603059566 50 MG Orally Active 1 tablet Once a day Protonix [facility] 94282489386 40 MG Orally Active 1 tablet Once a day Tresiba FlexTouch [facility] 85402663012 200 UNIT/ML Active 40 UNITS DAILY Results No Known Results Summary Purpose eClinicalWorks Submission
--- OUTSIDE RECORDS SUMMARY | 2018-07-15 14:58 | XMS REPORT ---
:1940 Author Organization eClinicalWorks Care Team Providers Name Role Phone Valentín [facility] Provider Role Unavailable Allergies No Known Allergies [...] Start End Date Status Dosage System Date [facility] 06230323402 - Oct 11, Active as directed Lancets 2018 Results No Known Results Summary Purpose [email or web address] Submission
--- OUTSIDE RECORDS SUMMARY | 2018-07-15 14:58 | XMS REPORT ---
[...] End Status Dosage System Date Date Anastrozole [facility] 77337049932 1 MG Orally Active 1 tablet Once a day Lipitor [facility] 36001984183 40 MG Orally Active 1 tablet Once a day Protonix [facility] 91086361187 40 MG Orally Active 1 tablet Once a day Topamax [facility] 62955090557 50 MG Orally Active 1 tablet Once a day Ferrous Sulfate [facility] 59410952435 325 (65 Fe) MG Active 1 tablet Orally Once a day Lipitor [facility] 57721845696 40 Active 1 TAB(S) ONCE A DAY ORALLY Tresiba FlexTouch [facility] 81942932633 200 UNIT/ML Active 70 UNITS Subcutaneous DAILY Increase 2 untis after 3 day if BS are high HydrALAZINE HCl [facility] 17409216394 25 MG Orally Active 1 tablet Two times a day with food Tresiba FlexTouch [facility] 04304547604 200 UNIT/ML Active not Subcutaneous defined Tresiba FlexTouch [facility] 61961893474 200 UNIT/ML Active INJECT 70 UNITS UNDER THE SKIN EVERY DAY INCREASE 2 UNITS AFTER 3 DAYS IF BLOOD SUGAR IS HIGH FreeStyle Lite [facility] 28407154153 0 Active CHECK Test BLOOD SUGAR TWICE DAILY Losartan [facility] 98220269908 100 MG Orally Inactive 1 tablet Potassium Once a day Pantoprazole [facility] 30799131379 40 Active TAKE 1 Sodium TABLET BY MOUTH EVERY DAY Citalopram [facility] 09616694462 20 Active TAKE 1 Hydrobromide TABLET BY MOUTH EVERY DAY Meclizine HCl [facility] 33772199407 25 Active CHEW AND SWALLOW 1 TABLET THREE TIMES DAILY Citalopram [facility] 34963598285 20 MG Orally Active 1 tablet Hydrobromide Once a day Coumadin [facility] 24700738235 2 MG Orally Active 1 tablet Once a day Lipitor [facility] 30846475253 40 MG Active 1 TAB(S) ONCE A DAY ORALLY Chlorthalidone [facility] 64547488447 25 MG Orally Inactive 1 tablet Once a day in the morning with food Flonase Allergy [facility] 15683985617 50 MCG/ACT Active 1 spray in Relief Nasally Once a each day nostril Protonix [facility] 14383434821 40 MG Active 1 TAB(S) ONCE A DAY ORALLY BD Pen Needle [facility] 01688718327 0 Active USE DAILY Short U/F Results No Known Results Summary Purpose eClinicalWorks Submission
--- OUTSIDE RECORDS SUMMARY | 2018-07-15 14:59 | XMS REPORT ---
[...] Status Dosage System Date Date Anastrozole ND 83300146939 1 MG Orally Active 1 tablet Once a day Protonix ND 13356994649 40 MG Orally Active 1 tablet Once a day Flonase Allergy ND 54391669652 50 MCG/ACT Active 1 spray in Relief Nasally Once a each day nostril Citalopram ND 33110437360 20 MG Orally Active 1 tablet Hydrobromide Once a day Furosemide ND 48868772087 20 MG Orally Active 1 tablet Once a day Lipitor [facility] 17720752512 40 Active 1 TAB(S) ONCE A DAY ORALLY Coumadin [facility] 40852484944 2 MG Orally Active 1 tablet Once a day BD Pen Needle [facility] 05095222112 0 Active USE DAILY Short U/F Lyrica [facility] 09139268402 50 MG Orally Active 1 capsule Twice a day Lasix [facility] 07350892373 40 MG Orally Active 1 tablet Twice a day PRN for edema Meclizine HCl [facility] 71704687691 25 Active TAKE 1 TABLET BY MOUTH THREE TIMES DAILY FreeStyle Lite [facility] 65459251847 0 Active CHECK BLOOD Test SUGAR TWICE DAILY Tresiba [facility] 01452426718 200 UNIT/ML Active INJECT 70 FlexTouch UNITS UNDER THE SKIN EVERY DAY INCREASE 2 UNITS AFTER 3 DAYS IF BLOOD SUGAR IS HIGH Lipitor [facility] 84186562540 40 MG Orally Active 1 tablet Once a day Tresiba [facility] 16123066675 200 UNIT/ML Active not defined FlexTouch Subcutaneous Pantoprazole [facility] 11785878754 40 Active TAKE 1 Sodium TABLET BY MOUTH EVERY DAY HydrALAZINE HCl [facility] 09801913684 25 Orally Two Active 1 tablet times a day with food Ferrous Sulfate [facility] 99697883835 325 (65 Fe) MG Active 1 tablet Orally Once a day Topamax [facility] 24771442895 50 MG Orally Active 1 tablet Once a day FreeStyle [facility] 99280251889 - Oct 11, Active as directed Lancets 2018 Results No Known Results Summary Purpose eClinicalWorks Submission
--- OUTSIDE RECORDS SUMMARY | 2018-07-15 14:59 | XMS REPORT ---
[...] Status Dosage System Date Date HydrALAZINE HCl [facility] 03096988915 25 Orally Two Active 1 tablet times a day with food Flonase Allergy [facility] 75788658547 50 MCG/ACT Active 1 spray in Relief Nasally Once a each day nostril Topamax [facility] 58420393141 50 MG Orally Active 1 tablet Once a day Tresiba [facility] 23905841257 200 UNIT/ML Active not defined FlexTouch Subcutaneous FreeStyle [facility] 24164283472 - Oct 11, Active as directed Lancets 2018 Anastrozole [facility] 08032359651 1 MG Orally Active 1 tablet Once a day BD Pen Needle [facility] 89234272701 0 Active USE DAILY Short U/F Lyrica [facility] 69313715208 50 MG Orally Active 1 capsule Twice a day Meclizine HCl [facility] 75925011410 25 Active TAKE 1 TABLET BY MOUTH THREE TIMES DAILY Coumadin [facility] 93154755781 2 MG Orally Active 1 tablet Once a day Tresiba [facility] 86524993203 200 UNIT/ML Active INJECT 70 FlexTouch UNITS UNDER THE SKIN EVERY DAY INCREASE 2 UNITS AFTER 3 DAYS IF BLOOD SUGAR IS HIGH FreeStyle Lite [facility] 11970030393 0 Active CHECK BLOOD Test SUGAR TWICE DAILY Protonix [facility] 29551607901 40 MG Orally Active 1 tablet Once a day Citalopram [facility] 18498874855 20 MG Orally Active 1 tablet Hydrobromide Once a day Lipitor [facility] 75912563139 40 Active 1 TAB(S) ONCE A DAY ORALLY Lipitor [facility] 61340751790 40 MG Orally Active 1 tablet Once a day Lasix [facility] 35015859563 40 MG Orally Active 1 tablet Twice a day PRN for edema Ferrous Sulfate [facility] 22970271037 325 (65 Fe) MG Active 1 tablet Orally Once a day Pantoprazole [facility] 75043825363 40 Active TAKE 1 Sodium TABLET BY MOUTH EVERY DAY Results No Known Results Summary Purpose eClinicalWorks Submission
--- OUTSIDE RECORDS SUMMARY | 2018-07-15 14:59 | XMS REPORT ---
[...] End Status Dosage System Date Date Pantoprazole [facility] 06110506704 40 Active TAKE 1 Sodium TABLET BY MOUTH EVERY DAY Lipitor [facility] 69035510025 40 MG Orally Active 1 tablet Once a day Citalopram [facility] 97128278452 20 Active TAKE 1 Hydrobromide TABLET BY MOUTH EVERY DAY Lasix [facility] 93019603893 40 MG Orally Feb 13, Active 1 tablet Twice a day PRN 2019 for edema Losartan [facility] 11412282195 100 MG Orally Inactive 1 tablet Potassium Once a day Flonase Allergy [facility] 66443701597 50 MCG/ACT Active 1 spray in Relief Nasally Once a each day nostril Citalopram [facility] 84667017316 20 MG Orally Active 1 tablet Hydrobromide Once a day Lipitor [facility] 78681527867 40 Active 1 TAB(S) ONCE A DAY ORALLY Anastrozole [facility] 51416857441 1 MG Orally Feb 08, Active 1 tablet Once a day 2019 FreeStyle Lite [facility] 84149274362 0 Active CHECK Test BLOOD SUGAR TWICE DAILY Protonix [facility] 21798366913 40 MG Orally Active 1 tablet Once a day BD Pen Needle [facility] 78499147536 0 Active USE DAILY Short U/F Tresiba [facility] 62012648220 200 UNIT/ML Active INJECT 70 FlexTouch UNITS UNDER THE SKIN EVERY DAY INCREASE 2 UNITS AFTER 3 DAYS IF BLOOD SUGAR IS HIGH Coumadin [facility] 95708841849 2 MG Orally Active 1 tablet Once a day Ferrous Sulfate [facility] 31601414489 325 (65 Fe) MG Active 1 tablet Orally Once a day Meclizine HCl [facility] 34767215456 25 Active TAKE 1 TABLET BY MOUTH THREE TIMES DAILY HydrALAZINE HCl [facility] 07338774556 25 Orally Two Active 1 tablet times a day with food Topamax [facility] 55703156042 50 MG Orally Active 1 tablet Once a day FreeStyle [facility] 32000388328 - Oct 11, Active as Lancets 2018 directed Lyrica [facility] 25169606801 50 MG Orally Active 1 capsule Twice a day Lyrica [facility] 41252007407 50 Active TAKE 1 CAPSULE BY MOUTH TWICE DAILY HydrALAZINE HCl [facility] 56106060011 25 Orally Two Active 1 tablet times a day with food Tresiba [facility] 78829686346 200 UNIT/ML Active not FlexTouch Subcutaneous defined Results No Known Results Summary Purpose eClinicalWorks Submission
--- OUTSIDE RECORDS SUMMARY | 2018-07-15 14:59 | XMS REPORT ---
:1940 Author Organization eClinicalWorks Care Team Providers Name Role Phone [facility] Provider Role Unavailable Allergies No Known [...] Status Dosage System Date Date Ferrous Sulfate [facility] 11079358159 325 (65 Fe) MG Active 1 tablet Orally Once a day FreeStyle Lite [facility] 43659456604 0 Active CHECK BLOOD Test SUGAR TWICE DAILY Citalopram [facility] 28841434155 20 Active TAKE 1 Hydrobromide TABLET BY MOUTH EVERY DAY Meclizine HCl [facility] 30114363266 25 Active CHEW AND SWALLOW 1 TABLET THREE TIMES DAILY Lipitor ND 87356024226 40 MG Orally Active 1 tablet Once a day Flonase Allergy ND 71095811981 50 MCG/ACT Active 1 spray in Relief Nasally Once a each day nostril Pantoprazole [facility] 67199563121 40 Active TAKE 1 Sodium TABLET BY MOUTH EVERY DAY FreeStyle [facility] 29972970700 - Oct 11, Active as directed Lancets 2018 HydrALAZINE HCl [facility] 28695999843 25 MG Orally Active 1 tablet Two times a day with food Lyrica [facility] 71703606174 50 MG Orally Oct 30, Active 1 capsule Twice a day 2017 BD Pen Needle [facility] 98875703042 0 Active USE DAILY Short U/F Anastrozole [facility] 09554836525 1 MG Orally Active 1 tablet Once a day Topamax [facility] 67060763277 50 MG Orally Active 1 tablet Once a day Coumadin [facility] 13629208824 2 MG Orally Active 1 tablet Once a day Tresiba [facility] 69615383290 200 UNIT/ML Active INJECT 70 FlexTouch UNITS UNDER THE SKIN EVERY DAY INCREASE 2 UNITS AFTER 3 DAYS IF BLOOD SUGAR IS HIGH Results No Known Results Summary Purpose eClinicalWorks Submission
--- OUTSIDE RECORDS SUMMARY | 2018-07-15 15:00 | XMS REPORT ---
[...] End Status Dosage System Date Date Tresiba [facility] 66239389544 200 UNIT/ML Active not defined FlexTouch Subcutaneous Coumadin [facility] 59761717324 2 MG Orally Active 1 tablet Once a day Ferrous Sulfate [facility] 60991459508 325 (65 Fe) MG Active 1 tablet Orally Once a day Protonix [facility] 05693064644 40 MG Orally Active 1 tablet Once a day BD Pen Needle [facility] 48693452326 0 Active USE DAILY Short U/F Lasix [facility] 53141471157 40 MG Orally Active 1 tablet Twice a day PRN for edema Lipitor [facility] 33974602669 40 MG Orally Active 1 tablet Once a day Lipitor [facility] 73429114213 40 Active 1 TAB(S) ONCE A DAY ORALLY HydrALAZINE HCl [facility] 15412044924 25 Orally Two Active 1 tablet times a day with food Pantoprazole [facility] 05473688954 40 Active TAKE 1 Sodium TABLET BY MOUTH EVERY DAY Januvia [facility] 13520072148 100 MG Orally April Active 1 tablet Once a day 2018 Flonase Allergy [facility] 06843497661 50 MCG/ACT Active 1 spray in Relief Nasally Once a each day nostril FreeStyle Lite [facility] 32411185751 0 Active CHECK BLOOD Test SUGAR TWICE DAILY Anastrozole ND 37529941925 1 MG Orally Active 1 tablet Once a day Lyrica [facility] 08441362924 75 MG Orally Active 1 capsule Twice a day FreeStyle [facility] 99257697429 - Oct 11, Active as directed Lancets 2018 Meclizine HCl [facility] 84248147192 25 Active TAKE 1 TABLET BY MOUTH THREE TIMES DAILY Citalopram [facility] 85945661235 20 MG Orally Active 1 tablet Hydrobromide Once a day Topamax [facility] 48487384363 50 MG Orally Active 1 tablet Once a day Tresiba [facility] 94111328656 200 UNIT/ML Active INJECT 70 FlexTouch UNITS UNDER THE SKIN EVERY DAY INCREASE 2 UNITS AFTER 3 DAYS IF BLOOD SUGAR IS HIGH Results No Known Results Summary Purpose eClinicalWorks Submission
[2018-07-15 17:04] LABS: Absolute Lymphocytes (CBC) 0.9 K/uL (0.7-4.9); Basophils % 0.6 % (0-1.3); Eosinophils % 1.7 % (0-4.4); Hematocrit 32.9 % (36.0-45.0); Lymphocytes % 12.2 % (15.3-44.8); MPV 10.7 fL (7.6-11.3); Monocytes % 2.3 % (3.3-12.3); RBC Red Blood Cell Count 3.41 M/uL (3.86-4.86)
[2018-07-15 17:05] LABS: Protime INR 1.23
--- NOTE | 2018-07-15 17:18 | EKG ---
Test Date: 2018-07-15 Test Time: 14:30:09 Cable Driller: JOSE LUIS MEASUREMENT RESULTS: Intervals: Rate: 76 ID: [id number] QRSD: 70 QT: 402 QTc: 452 [place]: P: 31 ID: [id number] QRS: -14 T: 101 INTERPRETIVE STATEMENTS: Normal sinus rhythm Minimal voltage criteria for LVH, may be normal variant Possible Lateral infarct, age undetermined Inferior infarct, age undetermined Abnormal ECG Compared to ECG 07/10/2018 13:12:48 No significant changes Electronically Signed On 07-15-18 17:17:30 CDT by Jefe Ewing
[2018-07-15 17:52] LABS: BUN Blood Urea Nitrogen 79 mg/dL (7-18); Bicarbonate 30 mmol/L (21-32); Glucose Level 753 mg/dL (74-106); Magnesium 2.4 mg/dL (1.8-2.4); NT PRO-BNP 1556 pg/mL (<450); Sodium Level 130 mmol/L (136-145); Troponin (Emerg Dept Use Only) < 0.02 ng/mL (0.0-0.045)
[2018-07-15 17:54] LABS: Potassium 5.7 mmol/L (3.5-5.1)
--- NOTE | 2018-07-15 18:13 | EDPHYS ---
Physician Documentation [facility] Name: Sarah Garcia Age: 77 yrs Sex: Female : 1940 Arrival Date: 07/15/2018 Time: 14:33 Bed 8 Private MD: ED Physician Cristóbal Waldron HPI: 07/15 15:47 This 77 yrs old Female presents to ER via EMS with complaints of high blood kb sugar. 15:47 The patient or guardian reports hyperglycemia, that was potentially precipitated by no kb particular event, with the patient's symptoms witnessed by no one. Onset: The symptoms/episode began/occurred this morning. Associated signs and symptoms: Pertinent positives: None. Current symptoms: In the emergency department the patient's symptoms are unchanged from the initial presentation. The patient has experienced similar episodes in the past, multiple times. The patient has not recently seen a physician. Pt reports she checked her sugar today and it read high so she came in. Denies weakness, dizziness, chest pain, shortness of breath, abd pain, n/v/d, urinary symptoms. States "My sugar is just high.". Historical: - Allergies: 14:40 QUINOLONES; tr5 - PMHx: 14:40 Atrial Fib; Cancer, Breast; Diabetes - IDDM; DVT; GERD; High Cholesterol; tr5 Hyperlipidemia; Hypertension; Myocardial infarction; neuropathy; stage 4 kidney disease; - Immunization history:: Adult Immunizations unknown. - Social history:: Smoking status: Patient/guardian denies using tobacco. ROS: 15:46 Constitutional: Negative for fever, chills, and weight loss, ENT: Negative for injury, kb pain, and discharge, Neck: Negative for injury, pain, and swelling, Cardiovascular: Negative for chest pain, palpitations, and edema, Respiratory: Negative for shortness of breath, cough, wheezing, and pleuritic chest pain, Abdomen/GI: Negative for abdominal pain, nausea, vomiting, diarrhea, and constipation, Back: Negative for injury and pain, : Negative for injury, bleeding, discharge, and swelling, MS/Extremity: Negative for injury and deformity, Skin: Negative for injury, rash, and discoloration, Neuro: Negative for headache, weakness, numbness, tingling, and seizure. Exam: 15:46 Constitutional: This is a well developed, well nourished patient who is awake, alert, kb and in no acute distress. Head/Face: Normocephalic, atraumatic. ENT: Nares patent. No nasal discharge, no septal abnormalities noted. Tympanic membranes are normal and external auditory canals are clear. Oropharynx with no redness, swelling, or masses, exudates, or evidence of obstruction, uvula midline. Mucous membranes moist. Neck: Trachea midline, no thyromegaly or masses palpated, and no cervical lymphadenopathy. Supple, full range of motion without nuchal rigidity, or vertebral point tenderness. No Meningismus. Chest/axilla: Normal chest wall appearance and motion. Nontender with no deformity. No lesions are appreciated. Cardiovascular: Regular rate and rhythm with a normal S1 and S2. No gallops, murmurs, or rubs. Normal PMI, no JVD. No pulse deficits. Respiratory: Lungs have equal breath sounds bilaterally, clear to auscultation and percussion. No rales, rhonchi or wheezes noted. No increased work of breathing, no retractions or nasal flaring. Abdomen/GI: Soft, non-tender, with normal bowel sounds. No distension or tympany. No guarding or rebound. No evidence of tenderness throughout. Skin: Warm, dry with normal turgor. Normal color with no rashes, no lesions, and no evidence of cellulitis. MS/ Extremity: Pulses equal, no cyanosis. Neurovascular intact. Full, normal range of motion. Neuro: Awake and alert, GCS 15, oriented to person, place, time, and situation. Cranial nerves II-XII grossly intact. Motor strength 5/5 in all extremities. Sensory grossly intact. Cerebellar exam normal. Normal gait. 18:11 ECG was reviewed by the Attending Physician. kb Vital Signs: 14:40 BP 150 / 49; Pulse 90; Resp 13; Temp 98.5; Pulse Ox 95% on R/A; tr5 15:00 BP 142 / 60; Pulse 76; Resp 14; Pulse Ox 99% on R/A; sg 16:39 BP 130 / 55; Pulse 70; Resp 16; Pulse Ox 98% on R/A; sg 18:55 BP 99 / 75; Pulse 80; Resp 16; Pulse Ox 100% on R/A; tr5 20:05 BP 109 / 83; Pulse 78; Resp 16; Temp 97.8; Pulse Ox 98% on R/A; Pain 0/10; aa1 MDM: 14:55 Patient medically screened. kb 15:46 Data reviewed: vital signs, nurses notes. Data interpreted: Pulse oximetry: on room air kb is 95 %. Interpretation: normal. 18:09 Counseling: I had a detailed discussion with the patient and/or guardian regarding: the kb historical points, exam findings, and any diagnostic results supporting the discharge/admit diagnosis, lab results, radiology results, the need for further work-up and treatment in the hospital. Physician consultation: Nataliya Hansen MD was contacted at 18:10, regarding admission, to the telemetry unit. patient's condition, and will see patient in ED, shortly. 07/15 14:34 Order name: glucometer results - FOR PT WITH NO ID tr5 07/15 15:01 Order name: Magnesium kb 07/15 15:01 Order name: Basic Metabolic Panel kb 07/15 15:01 Order name: CBC with Diff kb 07/15 15:01 Order name: NT PRO-BNP kb 07/15 15:01 Order name: PT-INR; Complete Time: 17:13 kb 07/15 15:01 Order name: Troponin (emerg Dept Use Only); Complete Time: 17:57 kb 07/15 15:01 Order name: Acetone, Serum; Complete Time: 17:57 kb 07/15 15:03 Order name: Magnesium; Complete Time: 17:57 EDMS 07/15 15:03 Order name: Basic Metabolic Panel; Complete Time: 17:57 EDMS 07/15 15:03 Order name: CBC with Automated Diff; Complete Time: 17:12 EDMS 07/15 15:03 Order name: NT PRO-BNP; Complete Time: 17:57 EDMS 07/15 19:47 Order name: Urine Microscopic Only aa1 07/15 15:01 Order name: EKG; Complete Time: 15:04 kb 07/15 15:01 Order name: Cardiac monitoring; Complete Time: 15:06 kb 07/15 15:01 Order name: EKG - Nurse/Tech; Complete Time: 16:49 kb 07/15 15:01 Order name: IV Saline Lock; Complete Time: 15:06 kb 07/15 15:01 Order name: Labs collected and sent; Complete Time: 15:06 kb 07/15 15:01 Order name: O2 Per Protocol; Complete Time: 15:06 kb 07/15 15:01 Order name: O2 Sat Monitoring; Complete Time: 15:06 kb 07/15 18:12 Order name: Urine Dipstick-Ancillary (obtain specimen); Complete Time: 19:48 kb 07/15 20:02 Order name: Urine Dipstick--Ancillary (enter results) mw2 07/15 20:13 Order name: Urine Dipstick-Ancillary; Complete Time: 20:13 EDMS EC:11 Rate is 76 beats/min. Rhythm is regular, Normal Sinus Rhythm. QRS [place] is Normal. [place] kb interval is normal at 182 msec. QRS interval is normal at 70 msec. QT interval is normal at 402 msec. Interpreted by me. Reviewed by me. Administered Medications: 18:49 Drug: Insulin Regular Human 10 units {Co-Signature: trDajuan (Clint Garcia RN).} Route: sg IVP; Site: left forearm; 19:46 Follow up: Response: No adverse reaction; Blood sugar is lowered aa1 18:49 Drug: NS 0.9% 500 ml Route: IV; Rate: bolus; Site: left forearm; sg 19:46 Follow up: IV Status: Completed infusion; IV Intake: 500ml aa1 18:50 Drug: Calcium Gluconate 1 grams Route: IVPB; Infused Over: 60 mins; Site: left forearm; sg 20:02 Follow up: IV Status: Completed infusion aa1 20:00 Drug: Insulin Regular Human 5 units {Co-Signature: aj (Rita Pittman RN).} Route: IVP; aa1 Site: left forearm; Point of Care Testing: Blood Glucose: 14:40 Blood Glucose: High (>450 mg/dL); tr5 19:40 Blood Glucose: 418 mg/dL; aa1 Ranges: Critical Glucose Levels:Adult <50 mg/dl or >400 mg/dl <40 mg/dl or >180 mg/dl Disposition: 07/15/18 18:12 Hospitalization ordered by Nataliya Hansen for Observation. Preliminary diagnosis are Hyperglycemia, unspecified, Hyperkalemia. - Bed requested for Telemetry/MedSurg (observation). - Status is Observation. aa1 - Condition is Stable. - Problem is new. - Symptoms are unchanged. UTI on Admission? No Addendum: 07/22/2018 07:12 Co-signature as Attending Physician, Cristóbal Waldron MD I agree with the assessment and c ron plan of care. Signatures: Dispatcher [employer] EDNC Edilia Chavarria, SHODDY MILL WORKER-C SHODDY MILL WORKER-Ckb Gillian Doherty, RN RN Tutu Dozier, RN RN Marsha Og, RN RN aa1 Cristóbal Waldron MD MD cha Chretien, Felicia RN RN Clint Garcia RN RN tr5 Clint Garcia RN tr5 Rita hutson Corrections: (The following items were deleted from the chart) 07/15 18:42 14:36 GLUCOSE+C.LAB.BRZ ordered. EDNC EDNC 19:29 18:12 Hospitalization Ordered by Nataliya Hansen MD for Observation. Preliminary diagnosis mw is Hyperglycemia, unspecified; Hyperkalemia. Bed requested for Telemetry/MedSurg (observation). Status is Observation. Condition is Stable. Problem is new. Symptoms are unchanged. UTI on Admission? No. kb 20:12 19:29 07/15/2018 18:12 Hospitalization Ordered by Nataliya Hansen MD for Observation. fc Preliminary diagnosis is Hyperglycemia, unspecified; Hyperkalemia. Bed requested for Telemetry/MedSurg (observation). Status is Observation. Condition is Stable. Problem is new. Symptoms are unchanged. UTI on Admission? No. mw 20:24 20:12 07/15/2018 18:12 Hospitalization Ordered by Nataliya Hansen MD for Observation. aa1 Preliminary diagnosis is Hyperglycemia, unspecified; Hyperkalemia. Bed requested for Telemetry/MedSurg (observation). Status is Observation. Condition is Stable. Problem is new. Symptoms are unchanged. UTI on Admission? No. fc
--- NOTE | 2018-07-15 18:13 | ER ---
Nurse's Notes [facility] Name: Sarah Garcia Age: 77 yrs Sex: Female : 1940 Arrival Date: 07/15/2018 Time: 14:33 Bed 8 Private MD: Diagnosis: Hyperglycemia, unspecified;Hyperkalemia Presentation: 07/15 14:35 Presenting complaint: EMS states: Patient has been feeling weak and having tremors at tr5 home today and tested blood glucose and it "was high". EMS got a reading of 343 of BG on route. Transition of care: patient was not received from another setting of care. Onset of symptoms was July 15, 2018. Risk Assessment: Do you want to hurt yourself or someone else? Patient reports no desire to harm self or others. Initial Sepsis Screen: Does the patient meet any 2 criteria? No. Patient's initial sepsis screen is negative. Does the patient have a suspected source of infection? No. Patient's initial sepsis screen is negative. Care prior to arrival: Medication(s) given: Normal saline infusion, 500 mL, IV initiated. 20 GA, in the left forearm, Glucose check: 343. 14:35 Method Of Arrival: EMS: [facility] tr5 14:35 Acuity: CHRISS 3 tr5 Historical: - Allergies: 14:40 QUINOLONES; tr5 - PMHx: 14:40 Atrial Fib; Cancer, Breast; Diabetes - IDDM; DVT; GERD; High Cholesterol; tr5 Hyperlipidemia; Hypertension; Myocardial infarction; neuropathy; stage 4 kidney disease; - Immunization history:: Adult Immunizations unknown. - Social history:: Smoking status: Patient/guardian denies using tobacco. Screenin:20 Abuse screen: Denies threats or abuse. Denies injuries from another. Nutritional sg screening: No deficits noted. Tuberculosis screening: No symptoms or risk factors identified. Never had TB. Fall Risk None identified. Assessment: 14:20 General: Appears in no apparent distress. obese, Behavior is calm, cooperative, Reports sg fatigue for 0-12 hours, Denies fever, feeling ill. Neuro: Level of Consciousness is awake, alert, Oriented to person, place, time, Roll Over Press Operator are equal bilaterally Moves all extremities. Speech is normal, Facial symmetry appears normal. Cardiovascular: Reports diaphoresis, Pt reports feeling weak. Cardiovascular: Denies chest pain, nausea, syncope, vomiting, Heart tones present Bruits absent Capillary refill < 3 seconds Pulses are all present. Edema is absent. Respiratory: Airway is patent Trachea midline Respiratory effort is even, unlabored, Respiratory pattern is regular, symmetrical, Breath sounds are clear bilaterally. GI: No signs and/or symptoms were reported involving the gastrointestinal system. : No signs and/or symptoms were reported regarding the genitourinary system. EENT: No signs and/or symptoms were reported regarding the EENT system. Derm: No signs and/or symptoms reported regarding the dermatologic system. Derm: Skin is diaphoretic. Musculoskeletal: Capillary refill < 3 seconds, Range of motion: intact in all extremities. 16:42 Reassessment: Patient is alert, oriented x 3, equal unlabored respirations, skin sg warm/dry/pink. Patient states feeling better. Pain: Denies pain. 16:52 Reassessment: Pt AAOX3. Pt in bed watching tv. Bed is in lowest position with call sg light in reach. Pt has no signs and symptoms of . Will continue to monitor. 19:10 Reassessment: Patient appears in no apparent distress at this time. Patient and/or aa1 family updated on plan of care and expected duration. Pain level reassessed. Patient is alert, oriented x 3, equal unlabored respirations, skin warm/dry/pink. Awaiting bed assignment. 20:10 Reassessment: Patient appears in no apparent distress at this time. Patient and/or aa1 family updated on plan of care and expected duration. Pain level reassessed. Patient is alert, oriented x 3, equal unlabored respirations, skin warm/dry/pink. Report given to Rosamaria on 2nd floor. Vital Signs: 14:40 BP 150 / 49; Pulse 90; Resp 13; Temp 98.5; Pulse Ox 95% on R/A; tr5 15:00 BP 142 / 60; Pulse 76; Resp 14; Pulse Ox 99% on R/A; sg 16:39 BP 130 / 55; Pulse 70; Resp 16; Pulse Ox 98% on R/A; sg 18:55 BP 99 / 75; Pulse 80; Resp 16; Pulse Ox 100% on R/A; tr5 20:05 BP 109 / 83; Pulse 78; Resp 16; Temp 97.8; Pulse Ox 98% on R/A; Pain 0/10; aa1 ED Course: 14:33 Patient arrived in ED. tr5 14:35 Clint Garcia, MARANDA is Primary Nurse. tr5 14:38 Triage completed. tr5 14:55 Edilia [facility]av[facility]C [facility] kb 14:55 Cristóbal Waldron MD is Attending Physician. kb 14:55 EKG done, by associate technician. reviewed by Cristóbal Waldron MD. sm3 15:00 Arm band placed on. ph 15:10 Patient has correct armband on for positive identification. Bed in low position. Call sg light in reach. 16:51 Inserted saline lock: 20 gauge in left forearm, using aseptic technique. sg 18:12 Nataliya Hansen MD is Hospitalizing Provider. kb 18:50 Cleaned of incontinence. Linen changed. sg 19:51 No provider procedures requiring assistance completed. Patient admitted, IV remains in aa1 place. Administered Medications: 18:49 Drug: Insulin Regular Human 10 units {Co-Signature: tr5 (Clint Garcia RN).} Route: sg IVP; Site: left forearm; 19:46 Follow up: Response: No adverse reaction; Blood sugar is lowered aa1 18:49 Drug: NS 0.9% 500 ml Route: IV; Rate: bolus; Site: left forearm; sg 19:46 Follow up: IV Status: Completed infusion; IV Intake: 500ml aa1 18:50 Drug: Calcium Gluconate 1 grams Route: IVPB; Infused Over: 60 mins; Site: left forearm; sg 20:02 Follow up: IV Status: Completed infusion aa1 20:00 Drug: Insulin Regular Human 5 units {Co-Signature: haresh (Rita Pittman RN).} Route: IVP; aa1 Site: left forearm; Point of Care Testing: Blood Glucose: 14:40 Blood Glucose: High (>450 mg/dL); tr5 19:40 Blood Glucose: 418 mg/dL; aa1 Ranges: Intake: 19:46 IV: 500ml; Total: 500ml. aa1 Outcome: 18:12 Decision to Hospitalize by Provider. kb 20:20 Admitted to Med/surg accompanied by tech, via stretcher, room 213, with chart, Report aa1 called to MARANDA Blank 20:20 Condition: stable 20:20 Instructed on the need for admit, Demonstrated understanding of instructions. 20:24 Patient left the ED. aa1 Signatures: Edilia Chavarria, COMMUNITY ORGANIZER-C COMMUNITY ORGANIZER-Ckb Tutu Dozier, RN RN sg Marsha Og RN RN aa1 Estee Jimenez RN RN [facility] Clint Garcia RN RN tr5 Clint Garcia RN tr5 Rita hutson
[2018-07-15] MEDS ORDERED: INSULIN -REGULAR HUMAN 50 UNIT/0.5 ML ML ONE ×2 (18:50→20:15)
[2018-07-15] MEDS ORDERED: NA CHLORIDE 0.9% 500 ML ONE (18:51)
[2018-07-15] MEDS ORDERED: CALCIUM GLUCONATE 1gm/100 ML NS (4.65 mEq/100mL) IV ONE ×2 (19:00)
[2018-07-15 20:11] LABS: Urine Blood 2+ (NEG); Urine Glucose 2+ (NEG); Urine Protein 1+ (NEG)
[2018-07-15 20:26] LABS: Urine Bacteria >50 /HPF (<20); Urine Culture Reflex Order REFLEXED; Urine RBC <5 /HPF (NONE SEEN); Urine Yeast PRESENT (NONE SEEN)
--- NOTE | 2018-07-15 21:34 | P.HP ---
Certification for Inpatient Patient admitted to: Observation With expected LOS: <2 Midnights Practitioner: I am a practitioner with admitting privileges, knowledge of patient current condition, hospital course, and medical plan of care. Services: Services provided to patient in accordance with Admission requirements found in Title 42 Section 412.3 of the Code of Federal Regulations Patient History Date of Service: 07/15/18 Reason for admission: UTI, hyperglycemia History of Present Illness: Ms Garcia is a 77 years old woman with history of DM II, HTN, CAD, A.Fib, PVD , who start about 2 days ago with progressive weakness, and elevated blood sugar readings. She has been applied her insulin as usual, no history of fever, chills, nausea, vomiting or diarrhea. She denied painful urination, but has had increased frequency. BS at arrival was 753, normal WBC count, hyperkalemia, abnormal UA consistent with UTI. Allergies Quinolones Allergy (Verified 07/10/18 17:18) Anaphylaxis Home medications list reviewed: Yes Home Medications: Anastrozole [Arimidex*] 1 mg PO DAILY 05/31/18 Atorvastatin Calcium [Lipitor*] 40 mg PO BEDTIME 05/31/18 Citalopram [Celexa*] 20 mg PO DAILY 05/31/18 Insulin Degludec [Tresiba Flextouch U-200] 40 unit SQ DAILY 05/31/18 Meclizine HCl [Antivert*] 25 mg PO TID 05/31/18 Warfarin Sodium [Coumadin*] 2 mg PO DAILY 05/31/18 Magnesium Oxide [Mag 0X*] 400 mg PO BID #60 tab 07/02/18 traMADol HCL [Ultram*] 50 mg PO Q6H PRN #60 tab 07/02/18 Furosemide [Lasix*] 40 mg PO DAILY 07/11/18 Hydralazine [Apresoline*] 25 mg PO BID 07/11/18 Pregabalin [Lyrica*] 1 tab PO DAILY 07/11/18 Amox/Clavulanate [Augmentin 875-125 Tab] 1 each PO BID #28 tab 07/13/18 - Past Medical/Surgical History Diabetic: Yes -: Atrial fibrillation, Cardiology-Dr. Camarena -: Chronic anticoagulation-Coumadin -: HTN -: GERD -: Chronic renal disease, Baseline GFR-30, Nephrology -: PVD -: Gout -: Depression with Anxiety -: Diabetes mellitus type 2, insulin-dependent -: Coronary disease -: Carotid arterial disease -: Hyperlipidemia -: Appendectomy -: Tubal ligation -: Hysterectomy -: Heart Cath -: right breast lumpectomy with lymph node removal Psychosocial/ Personal History: Patient currently lives in assisted living facility-[facility]. She has 10 children. - Family History Brother -: Diabetes Mother -: Heart disease, Hypertension, Diabetes Notes: arthritis - Social History Alcohol use: No CD- Drugs: No Caffeine use: Yes Place of Residence: Home Review of Systems 10-point ROS is otherwise unremarkable Physical Examination - Physical Exam General: Alert, In no apparent distress HEENT: Atraumatic, PERRLA, Mucous membr. moist/pink, EOMI, Sclerae nonicteric Neck: Supple, 2+ carotid pulse no bruit, No LAD, Without JVD or thyroid abnormality Respiratory: Clear to auscultation bilaterally, Normal air movement Cardiovascular: Regular rate/rhythm, Normal S1 S2 Gastrointestinal: Normal bowel sounds, No tenderness Musculoskeletal: No tenderness Integumentary: No rashes Neurological: Normal speech, Normal strength at 5/5 x4 extr, Normal tone, Normal affect Lymphatics: No axilla or inguinal lymphadenopathy - Studies Laboratory Data (last 24 hrs) 07/15/18 16:30: PT 14.4 H, INR 1.23 07/15/18 16:30: WBC 7.6, Hgb 10.3 L, Hct 32.9 L, Plt Count 175 07/15/18 16:30: Sodium 130 L, Potassium 5.7 H*, BUN 79 H, Creatinine 2.64 H, Glucose 753 H*, Magnesium 2.4 07/15/18 14:34: Glucose Cancelled Assessment and Plan - Problems (Diagnosis) (1) Hyperglycemia Onset Date: 08/23/15 Current Visit: No Status: Acute (2) Hyperkalemia Onset Date: 11/09/14 Current Visit: No Status: Acute (3) UTI (urinary tract infection) Onset Date: 07/06/15 Current Visit: No Status: Acute Qualifiers: Urinary tract infection type: acute cystitis Hematuria presence: without hematuria Qualified Code(s): N30.00 - Acute cystitis without hematuria (4) Atrial fibrillation Onset Date: 10/23/18 Current Visit: No Status: Chronic Qualifiers: Atrial fibrillation type: chronic Qualified Code(s): I48.2 - Chronic atrial fibrillation (5) HTN (hypertension) Onset Date: 04/17/16 Current Visit: No Status: Chronic Qualifiers: Hypertension type: essential hypertension Qualified Code(s): I10 - Essential (primary) hypertension (6) Type II diabetes mellitus Current Visit: No Status: Chronic Qualifiers: 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 Will continue with IV Rocephin, IV fluids, tight BS control. Check potassium level. - Advance Directives Does patient have a Living Will: No Does patient have a Durable POA for Healthcare: Yes - Code Status/Comfort Care Code Status Assessed: Yes Code Status: Full Code
[2018-07-15] MEDS ORDERED: CEFTRIAXONE 1000 MG/VIAL ONE (21:54)
[2018-07-15] MEDS ORDERED: NA CHLORIDE 0.9% 50 ML ONE (21:54)
[2018-07-15] MEDS ORDERED: NA CHLORIDE 0.9% 250 ML ONE (21:55)
[2018-07-15] MEDS ORDERED: CEFTRIAXONE 1 GM/NS 50 ML 1 GM/50 ML BAG IV SCH (22:00)
[2018-07-15] MEDS: INSULIN -REGULAR HUMAN 50 UNIT/0.5 ML ML SQ SCH (22:07)
[2018-07-16 06:06] LABS: Absolute Lymphocytes (CBC) 1.8 K/uL (0.7-4.9); Basophils % 0.6 % (0-1.3); Eosinophils % 8.6 % (0-4.4); Hematocrit 31.3 % (36.0-45.0); Lymphocytes % 21.9 % (15.3-44.8); MPV 10.1 fL (7.6-11.3); Monocytes % 4.9 % (3.3-12.3); RBC Red Blood Cell Count 3.39 M/uL (3.86-4.86)
[2018-07-16 06:17] LABS: Potassium 4.3 mmol/L (3.5-5.1)
[2018-07-16] MEDS: INSULIN -REGULAR HUMAN 50 UNIT/0.5 ML ML SQ SCH ×4 (08:57→20:19)
[2018-07-16] MEDS ORDERED: FLUCONAZOLE 100 MG TAB PO ONE (11:51)
--- NOTE | 2018-07-16 18:28 | PN ---
Date of Progress Note: 07/16/2018 Subjective: The patient is seen and examined, chart reviewed and case discussed with RN. The patient states she still feels about the same, asking about her test results. Medications: List reviewed. Code Status: Full. Physical Examination: Vital Signs: Temperature 97.8, heart rate 74, blood pressure 142/65, respirations 20, O2 94% on room air. General: Awake, alert, oriented x3. Elderly female, ill-appearing, obese. CV: S1, S2. Regular rate and rhythm. Peripheral pulses present. Respiratory: Moving air well bilaterally. No wheezing or stridor. Gastrointestinal: Abdomen is soft, nontender, nondistended. Positive bowel sounds. Extremities: No clubbing, cyanosis, or edema. Neurologic: Nonfocal. Laboratory Data: Sodium 142, potassium 4.3, chloride 104, CO2 31, BUN 76, creatinine 2.4, glucose 178, calcium 9. WBC 8.2, H and H 10.3 and 31.3, platelets 179. UA shows greater than 50 bacteria, yeast and leukocyte esterase 3+. Urine culture is pending. Assessment: 1. Acute cystitis without hematuria. The patient also has yeast in the urine. We will treat with Diflucan 200 mg p.o. x1. We will follow up on urine culture. Continue Rocephin. 2. Hyperkalemia, corrected, the patient does have chronic kidney disease. 3. Chronic kidney disease stage 3. We will continue to monitor creatinine level. Avoid NSAIDs. 4. Diabetes mellitus type 2 without long-term use of insulin with hyperglycemia, uncontrolled, blood glucose level was in the 700s. The patient was not in DKA, now better controlled. We will continue with sliding scale insulin and monitor blood glucose levels. 5. History of atrial fibrillation, currently in sinus rhythm, paroxysmal. We will resume home medications. 6. Essential hypertension, stable. We will resume home medications as appropriate. 7. Gastroesophageal reflux disease without esophagitis. 8. Peripheral vascular disease. 9. Gout. 10. Generalized depression with anxiety. 11. Coronary artery disease [place] artery and [place] heart without angina. 12. Mixed hyperlipidemia. Continue statin. Plan: Continue antibiotics. Follow up on culture results, likely discharge in a.m. We will obtain PT/OT consultation. MARCI Voice ID: [id number] Report ID: [id number] MTDD
[2018-07-16] MEDS: CEFTRIAXONE/SWI 1gm 1 GM/10 ML SYR IV SCH (20:20)
[2018-07-17] MEDS: INSULIN -REGULAR HUMAN 50 UNIT/0.5 ML ML SQ SCH ×4 (08:48→20:01)
[2018-07-17] MEDS ORDERED: TRAMADOL HCL 50 MG TAB PO PRN (11:02)
[2018-07-17] MEDS ORDERED: WARFARIN SODIUM 1 MG TAB PO SCH (17:00)
--- NOTE | 2018-07-17 17:29 | PN ---
Date of Progress Note: 07/17/2018 Subjective: The patient is seen and examined. Chart reviewed and case discussed with RN. The patient denies any specific complaints. States that she feels the "same." A [place] foreign language interpreter was also used despite the patient's proficient Yemeni per her request. No family at the bedside. This is the patient's third hospitalization in the past couple of months, was recently discharged from rehab. Medications: List reviewed. Objective: Vital Signs: Temperature 97.7, heart rate 78, blood pressure 142/63 , respirations 16, O2 92% on room air. General: Awake, alert, oriented x3. Elderly female, obese. CV: S1, S2. Regular rate and rhythm. Peripheral pulses present. Respiratory: Moving air well bilaterally. No wheezing or stridor. Gastrointestinal: Abdomen is soft, nontender, nondistended. Positive bowel sounds. Extremities: No clubbing, cyanosis, or edema. Neurologic: Nonfocal. Laboratory Data: Labs pending. Urine culture growing yeast. Assessment: A 77-year-old female with: 1. Acute cystitis without hematuria. Currently on Rocephin, treated with Diflucan earlier. Urine cultures growing out yeast. 2. Hyperkalemia, corrected, likely secondary to chronic kidney disease. 3. Chronic kidney disease, stage 3. Creatinine around baseline. We will continue to monitor, avoid NSAIDs. 4. Diabetes mellitus type 2 with long-term use of insulin with hyperglycemia, uncontrolled. We will resume the patient's home dose of insulin. Continue sliding scale and monitor Accu-Cheks. 5. History of atrial fibrillation, currently in sinus rhythm, paroxysmal. Continue rate control. 6. Essential hypertension, stable, on home medications. 7. Gastroesophageal reflux disease without esophagitis. 8. Peripheral vascular disease. The patient on aspirin. 9. Gout. 10. Generalized depression with anxiety. 11. Coronary artery disease, [place] artery and [place] heart, without angina. 12. Mixed hyperlipidemia. Continue statin. Plan: The patient has had multiple adverse events at home. Unable to monitor her blood glucose levels. The patient will likely need fdc facility placement. We will obtain PT, OT consultation, and refer to SNF if family is agreeable. They are requesting [facility]. Plan to resume home medications as appropriate. Monitor INR. The patient is on Coumadin for her atrial fibrillation. Repeat CBC and BMP in a.m. SA/MODL Voice ID: [id number] Report ID: [id number] FRANCESCO
[2018-07-17] MEDS: PREGABALIN 75 MG CAP PO SCH (20:01)
[2018-07-17] MEDS: ATORVASTATIN 40 MG TAB PO SCH (20:01)
[2018-07-17] MEDS: CEFTRIAXONE/SWI 1gm 1 GM/10 ML SYR IV SCH (20:01)
[2018-07-18] MEDS: PANTOPRAZOLE 40MG TABLET PO SCH (05:47)
[2018-07-18 06:00] LABS: Potassium 4.8 mmol/L (3.5-5.1)
[2018-07-18 06:02] LABS: Protime INR 1.18
[2018-07-18 06:09] LABS: Absolute Lymphocytes (CBC) 2.4 K/uL (0.7-4.9); Basophils % 0.6 % (0-1.3); Eosinophils % 7.9 % (0-4.4); Hematocrit 31.8 % (36.0-45.0); Lymphocytes % 36.1 % (15.3-44.8); MPV 9.8 fL (7.6-11.3); Monocytes % 6.6 % (3.3-12.3); RBC Red Blood Cell Count 3.41 M/uL (3.86-4.86)
[2018-07-18] MEDS: INSULIN -REGULAR HUMAN 50 UNIT/0.5 ML ML SQ SCH ×5 (07:30→20:40)
[2018-07-18] MEDS ORDERED: INSULIN DEGLUDEC 30 UNIT SQ SCH (09:00)
[2018-07-18] MEDS: CITALOPRAM 10 MG TABLET PO SCH (09:43)
[2018-07-18] MEDS: FERROUS SULFATE 325 MG TAB PO SCH (09:43)
[2018-07-18] MEDS: PREGABALIN 75 MG CAP PO SCH ×2 (09:43→20:27)
[2018-07-18] MEDS: ANASTROZOLE 1 MG TAB PO SCH (09:43)
[2018-07-18] MEDS: FUROSEMIDE 40 MG TABLET PO SCH (09:44)
[2018-07-18] MEDS: ASPIRIN EC 81 MG TAB PO SCH (11:02)
[2018-07-18] MEDS: INSULIN DEGLUDEC U SQ SCH (12:00)
[2018-07-18] MEDS ORDERED: INSULIN -REGULAR HUMAN 50 UNIT/0.5 ML ML SQ ONE (14:21)
[2018-07-18] MEDS ORDERED: D50W 25 GM/50 ML SYRINGE IV PRN (15:16)
[2018-07-18] MEDS ORDERED: GLUCAGON 1 MG/VIAL IM PRN (15:16)
[2018-07-18] MEDS ORDERED: WARFARIN SODIUM 2 MG TAB PO SCH (17:00)
--- NOTE | 2018-07-18 17:03 | PN ---
Date of Progress Note: 07/18/2018 Subjective: The patient is seen and examined. Chart reviewed and case discussed with RN. The patie nt is still having significant amount of uncontrolled blood sugars. Medications: List reviewed. Physical Examination: Vital Signs: Temperature 97.2, heart rate 79, blood pressure 113/54, respirations 16, O2 95% on room air. General: Awake, alert, oriented x3. Elderly female, obese. CV: S1, S2. Regular rate and rhythm. Respiratory: Clear to auscultation bilaterally. No wheezing. Gastrointestinal: Abdomen is soft, nontender, nondistended. Positive bowel sounds. Extremities: No clubbing, cyanosis, or edema. Neurologic: Nonfocal. Laboratory Data: Sodium 140, potassium 4.8, chloride 105, CO2 32, BUN 65, creatinine 1.94, glucose 1 95, calcium 8.7. Blood glucose checks have been ranging from 195 to 557. WBC 6.6, H and H 10.8 and 31.8, platelets 197, neutrophils 48%. Urine culture preliminary report showing 3+ yeast. Assessment: A 77-year-old female with: 1.Acute cystitis without hematuria secondary to yeast from urine cultures. The patient has been negar ated with Diflucan. Continue Rocephin. 2.Hyperkalemia, corrected secondary to chronic kidney disease. 3.Chronic kidney disease stage 3. Creatinine is improving. We will continue to monitor, avoid nons teroidal anti-inflammatory drugs. 4.Diabetes mellitus type 2 with long-term use of insulin with uncontrolled hyperglycemia. The patie liliane had not received her home dose of insulin as it was not brought in by the family until this aftern oon. We will adjust sliding scale to aggressive. We will give extra 10 units of regular insulin. M onitor blood glucose levels closely. 5.History of atrial fibrillation, paroxysmal. Rate controlled. 6.Essential hypertension, stable. Continue medications. 7.Gastroesophageal reflux disease without esophagitis. 8.Peripheral vascular disease. Continue aspirin. 9.Gout. 10.Generalized anxiety disorder and depression, stable. 11.Coronary artery disease [place] artery and [place] heart without angina, stable. 12.Mixed hyperlipidemia. Continue statin. 13.Deep venous thrombosis prophylaxis, addressed. The patient takes Coumadin for her atrial fibrill ation. Plan: Continue PT, OT. Adjust insulin for blood glucose levels. Awaiting referral to [facility] once accepted and once clinically more stable. SA/MODL Voice ID: [id number] Report ID: [id number]
[2018-07-18] MEDS: CEFTRIAXONE/SWI 1gm 1 GM/10 ML SYR IV SCH (20:27)
[2018-07-18] MEDS: ATORVASTATIN 40 MG TAB PO SCH (20:27)
[2018-07-19 05:31] LABS: Absolute Lymphocytes (CBC) 2.9 K/uL (0.7-4.9); Basophils % 0.7 % (0-1.3); Eosinophils % 9.1 % (0-4.4); Hematocrit 33.2 % (36.0-45.0); Lymphocytes % 39.8 % (15.3-44.8); MPV 9.4 fL (7.6-11.3); Monocytes % 6.7 % (3.3-12.3); RBC Red Blood Cell Count 3.53 M/uL (3.86-4.86)
[2018-07-19 05:32] LABS: Protime INR 1.2
[2018-07-19 05:46] LABS: Potassium 4.7 mmol/L (3.5-5.1)
[2018-07-19] MEDS: PANTOPRAZOLE 40MG TABLET PO SCH (05:55)
[2018-07-19] MEDS: INSULIN -REGULAR HUMAN 50 UNIT/0.5 ML ML SQ SCH ×4 (08:15→22:23)
[2018-07-19] MEDS: INSULIN DEGLUDEC U SQ SCH (08:16)
[2018-07-19] MEDS: ANASTROZOLE 1 MG TAB PO SCH (08:17)
[2018-07-19] MEDS: FUROSEMIDE 40 MG TABLET PO SCH (08:17)
[2018-07-19] MEDS: ASPIRIN EC 81 MG TAB PO SCH (08:18)
[2018-07-19] MEDS: PREGABALIN 75 MG CAP PO SCH ×2 (08:18→21:29)
[2018-07-19] MEDS: CITALOPRAM 10 MG TABLET PO SCH (08:18)
[2018-07-19] MEDS: FERROUS SULFATE 325 MG TAB PO SCH (08:18)
[2018-07-19] MEDS: WARFARIN SODIUM 3 MG TAB PO SCH (17:09)
[2018-07-19] MEDS: NYSTATIN PWDR 100000 UNIT/GM TOP PRN (17:11)
--- NOTE | 2018-07-19 18:01 | DS ---
Date of Discharge: 07/19/2018 Admitting Diagnoses: 1.Hyperglycemia. 2.Hyperkalemia. 3.Acute cystitis without hematuria. 4.Atrial fibrillation chronic. 5.Essential hypertension. 6.Diabetes mellitus type 2 with long-term use of insulin with hyperglycemia. 7.Generalized weakness. Discharge Diagnoses: 1.Acute cystitis without hematuria secondary to yeast growing in urine cultures. 2.Hyperkalemia secondary to chronic kidney disease. 3.Chronic kidney disease stage 3. Creatinine is stable. 4.Diabetes mellitus type 2 with long-term use of insulin with uncontrolled hyperglycemia. 5.History of atrial fibrillation paroxysmal. 6.Essential hypertension. 7.Gastroesophageal reflux disease without esophagitis. 8.Peripheral vascular disease. 9.Gout. 10.Generalized anxiety disorder and depression. 11.Coronary artery disease [place] artery and [place] heart without angina. 12.Mixed hyperlipidemia. Hospital Course: The patient is a 77-year-old female, who has had multiple admissions to the [facility] for multiple issues including weakness and uncontrolled blood sugars. The patient has also been to rehab recently. The patient comes in with UTI and hyperglycemia with blood sugar level of 753. She was not in DKA. Her UA was consistent with UTI. The patient was started on IV antibiotics. Cultur es were obtained. Urine culture grew out E. coli. The patient's insulin was adjusted. Her blood peralta gars improved. She does have uncontrolled diabetes. The patient did have some generalized weakness and dehydration. She was given IV fluids. She was seen by Physical Therapy as well. The patient's hemoglobin A1c is 10%. She was counseled regarding her uncontrolled diabetes. The patient was then referred to correction facility due to her comorbid conditions due to the f act that she is unable to have her blood glucose levels properly maintained at home. She requires as sistance. She also needs physical therapy and occupational therapy. The patient was then cleared fo r discharge and was sent to correction facility in a stable condition. Activity: Fall precautions, ambulate with assist. Condition: Stable. Diet: Diabetic, renal diet. Followup: Follow up with primary care physician in 2-3 days. Follow up with inspector canned food reconditioning in 2 weeks . Return to ER for worsening condition. Physical Examination: General: Awake, alert, oriented x3, obese female. CV: S1, S2. Respiratory: Moving air well bilaterally. Abdomen: Abdomen is soft, nontender, nondistended. Positive bowel sounds. Extremities: No clubbing, cyanosis, or edema. Neurologic: Nonfocal. Total time spent discharging the patient was 37 minutes. /SERGO Voice ID: [id number] Report ID: [id number]
[2018-07-19] MEDS: ATORVASTATIN 40 MG TAB PO SCH (21:29)
[2018-07-19] MEDS: CEFTRIAXONE/SWI 1gm 1 GM/10 ML SYR IV SCH (21:29)
[2018-07-20] MEDS: PANTOPRAZOLE 40MG TABLET PO SCH (05:51)
[2018-07-20] MEDS: CITALOPRAM 10 MG TABLET PO SCH (08:09)
[2018-07-20] MEDS: FERROUS SULFATE 325 MG TAB PO SCH (08:09)
[2018-07-20] MEDS: ANASTROZOLE 1 MG TAB PO SCH (08:09)
[2018-07-20] MEDS: PREGABALIN 75 MG CAP PO SCH ×2 (08:09→20:47)
[2018-07-20] MEDS: FUROSEMIDE 40 MG TABLET PO SCH (08:10)
[2018-07-20] MEDS: INSULIN -REGULAR HUMAN 50 UNIT/0.5 ML ML SQ SCH ×4 (08:10→20:45)
[2018-07-20] MEDS: ASPIRIN EC 81 MG TAB PO SCH (08:10)
[2018-07-20] MEDS: INSULIN DEGLUDEC U SQ SCH (09:00)
[2018-07-20] MEDS: INSULIN GLARGINE 100 UNITS/ML SQ SCH (11:58)
[2018-07-20] MEDS: AMOXICILLIN TRIHYDR 250 MG CAP PO SCH ×2 (12:00→20:46)
[2018-07-20] MEDS ORDERED: PENICILLIN V K 250 MG TABLET PO SCH (13:00)
--- NOTE | 2018-07-20 14:44 | PN ---
Date of Progress Note: 07/20/2018 Subjective: The patient is seen and examined. Chart reviewed and case discussed with RN. The patie nt is still awaiting transfer to [facility]. The patient denies any specific complaints. No acute events overnight. Medications: List reviewed. Physical Examination: Vital Signs: Temperature 97.5, heart rate 72, blood pressure 128/60, respirations 19, and O2 of 95% on room air. General: Awake, alert, and oriented x3. Elderly female, obese. CV: S1, S2. No murmurs. Respiratory: Moving air well bilaterally. No wheezing. Gastrointestinal: Abdomen is soft, nontender, and nondistended. Positive bowel sounds. Extremities: No clubbing, cyanosis, or edema. Neurologic: Nonfocal. Laboratory Data: Pending urine culture growing out Enterococcus faecalis. Assessment And Plan: A 77-year-old female with 1.Acute cystitis without hematuria secondary to Enterococcus faecalis and yeast. 2.Hyperkalemia secondary to chronic kidney disease, corrected. 3.Chronic kidney disease, stage 3. Creatinine stable. Continue to monitor. 4.Diabetes mellitus type 2 with long-term use of insulin with uncontrolled hyperglycemia, improved. Continue sliding scale insulin and monitor blood glucose levels. 5.History of atrial fibrillation, paroxysmal. 6.Essential hypertension, stable. 7.Gastroesophageal reflux disease without esophagitis. 8.Peripheral vascular disease, stable. 9.Gout, stable. 10.Generalized anxiety disorder and depression, stable on home medications. 11.Coronary artery disease, [place] artery and [place] heart without angina, stable. 12.Mixed hyperlipidemia. Continue statin. Plan: Update antibiotics, urine culture now instead of growing yeast is showing Enterococcus faecali s which is unusual. We will discuss with microbiology lab. Transfer to [facility] once accepted. /MODJoshua Voice ID: [id number] Report ID: [id number]
[2018-07-20] MEDS: WARFARIN SODIUM 3 MG TAB PO SCH (17:10)
[2018-07-20] MEDS: NYSTATIN PWDR 100000 UNIT/GM TOP PRN (19:16)
[2018-07-20] MEDS: ATORVASTATIN 40 MG TAB PO SCH (20:47)
[2018-07-21 06:23] LABS: Potassium 4.5 mmol/L (3.5-5.1)
[2018-07-21 06:47] LABS: Protime INR 2.51
[2018-07-21] MEDS: PANTOPRAZOLE 40MG TABLET PO SCH (07:24)
[2018-07-21] MEDS: INSULIN -REGULAR HUMAN 50 UNIT/0.5 ML ML SQ SCH ×4 (08:56→21:08)
[2018-07-21] MEDS: ASPIRIN EC 81 MG TAB PO SCH (08:58)
[2018-07-21] MEDS: PREGABALIN 75 MG CAP PO SCH ×2 (08:58→21:04)
[2018-07-21] MEDS: FERROUS SULFATE 325 MG TAB PO SCH (08:58)
[2018-07-21] MEDS: INSULIN GLARGINE 100 UNITS/ML SQ SCH (08:58)
[2018-07-21] MEDS: CITALOPRAM 10 MG TABLET PO SCH (08:59)
[2018-07-21] MEDS: ANASTROZOLE 1 MG TAB PO SCH (08:59)
[2018-07-21] MEDS: AMOXICILLIN TRIHYDR 250 MG CAP PO SCH ×2 (08:59→21:04)
[2018-07-21] MEDS: FUROSEMIDE 40 MG TABLET PO SCH (09:01)
--- NOTE | 2018-07-21 12:18 | PN ---
Date of Progress Note: 07/21/2018 Subjective: The patient seen and examined. Chart reviewed and case discussed with RN. The patient denies any acute events overnight. Medications: List reviewed. Physical Examination: Vital Signs: Temperature 97.2, heart rate 76, blood pressure 117/58, respirations 96% on room air. General: Awake, alert, oriented x3. Elderly female, obese. CV: S1, S2. Regular rate and rhythm. Peripheral pulses present. Respiratory: Moving air well bilaterally. No wheezing or stridor. Gastrointestinal: Abdomen is soft, nontender, nondistended. Positive bowel sounds. Extremities: No clubbing, cyanosis, or edema. Neurologic: Nonfocal. Laboratory Data: Sodium 139, potassium 4.5, chloride 101, CO2 32, BUN 67, creatinine 2.23, glucose 142, calcium 8.6. WBC pending. Urine culture growing out Enterococcus faecalis. Assessment And Plan: A 77-year-old female with: 1. Acute cystitis without hematuria secondary to Enterococcus faecalis and yeast. Antibiotics have been adjusted. Now on ampicillin. 2. Hyperkalemia. Corrected. monitor potassium level. 3. Chronic kidney disease stage 3. Creatinine is better. We will continue to monitor, avoid NSAIDs. 4. Diabetes mellitus type 2 with long-term use of insulin with hyperglycemia. Sliding scale insulin has been adjusted. We will continue to monitor Accu- Cheks. 5. History of atrial fibrillation, paroxysmal, currently in sinus rhythm. The patient is on Coumadin for stroke prophylaxis. Her INR is 2.5. We will decrease dose back to her regular dose of 1 mg. 6. Essential hypertension, stable on home medications. 7. Gastroesophageal reflux disease without esophagitis. 8. Peripheral vascular disease, stable. 9. Gout, stable 10. Generalized anxiety disorder, major depressive disorder, stable. 11. Coronary artery disease, [place] artery and [place] heart without angina, stable. 12. Mixed hyperlipidemia, on statin. 13. DVT prophylaxis addressed. Pt is on coumadin Plan: Transfer to [facility] once accepted. /SERGO Voice ID: [id number] Report ID: [id number] MTDPatience
[2018-07-21] MEDS ORDERED: INSULIN -REGULAR HUMAN 50 UNIT/0.5 ML ML SQ ONE (12:30)
[2018-07-21] MEDS ORDERED: WARFARIN SODIUM 1 MG TAB PO SCH (17:00)
[2018-07-21] MEDS ORDERED: WARFARIN SODIUM 3 MG TAB PO SCH (17:00)
[2018-07-21] MEDS: NYSTATIN PWDR 100000 UNIT/GM TOP PRN (18:00)
[2018-07-21] MEDS: ATORVASTATIN 40 MG TAB PO SCH (21:04)
[2018-07-22 04:19] LABS: Absolute Lymphocytes (CBC) 2.3 K/uL (0.7-4.9); Basophils % 0.7 % (0-1.3); Eosinophils % 9.6 % (0-4.4); Hematocrit 31.6 % (36.0-45.0); Lymphocytes % 35.6 % (15.3-44.8); MPV 9.4 fL (7.6-11.3); Monocytes % 7.4 % (3.3-12.3)
[2018-07-22 04:30] LABS: Protime INR 3.76
[2018-07-22 04:33] LABS: Potassium 4.2 mmol/L (3.5-5.1)
[2018-07-22 05:29] VITALS: BMI 34.4
[2018-07-22] MEDS: PANTOPRAZOLE 40MG TABLET PO SCH (06:10)
[2018-07-22] MEDS: INSULIN GLARGINE 100 UNITS/ML SQ SCH (09:03)
[2018-07-22] MEDS: INSULIN -REGULAR HUMAN 50 UNIT/0.5 ML ML SQ SCH ×4 (09:03→21:42)
[2018-07-22] MEDS: CITALOPRAM 10 MG TABLET PO SCH (09:04)
[2018-07-22] MEDS: FUROSEMIDE 40 MG TABLET PO SCH (09:04)
[2018-07-22] MEDS: ASPIRIN EC 81 MG TAB PO SCH (09:04)
[2018-07-22] MEDS: AMOXICILLIN TRIHYDR 250 MG CAP PO SCH ×2 (09:04→21:42)
[2018-07-22] MEDS: FERROUS SULFATE 325 MG TAB PO SCH (09:04)
[2018-07-22] MEDS: PREGABALIN 75 MG CAP PO SCH ×2 (09:04→21:41)
[2018-07-22] MEDS: ANASTROZOLE 1 MG TAB PO SCH (09:07)
--- NOTE | 2018-07-22 19:33 | PN ---
Date of Progress Note: 07/22/2018 Subjective: The patient seen and examined. Chart reviewed and case discussed with RN. The patient denies any acute events overnight. According to the nurses, the patient was brought a large milk shake by the daughter and she went downstairs and drank half of it, has been having blood sugar spikes into the 500s. Because she has been noncompliant with her diet, she was counseled extensively. No family member at the bedside. Her insulin dose was also adjusted. Medications: List reviewed. Physical Examination: Vital Signs: Temperature 97.1, heart rate 66, blood pressure 148/59, respirations 18, O2 94% on room air. General: Awake, alert, oriented x3. No acute distress. Obese female elderly. CV: S1, S2. Peripheral pulses present. Respiratory: Moving air well bilaterally. No wheezing. Gastrointestinal: Abdomen is soft, nontender, nondistended. Positive bowel sounds. Extremities: No clubbing, cyanosis, or edema. Neurologic: Nonfocal. Laboratory Data: Sodium 138, potassium 4.2, chloride 102, CO2 30, BUN 62, creatinine 2.4, glucose 110, calcium 8.2. WBC 6.4, H and H 10.4, 31.6, platelets 213. Urine culture growing out Enterococcus faecalis. Assessment And Plan: A 77-year-old female with: 1. Acute cystitis without hematuria secondary to Enterococcus faecalis and yeast. Continue p.o. antibiotics, improved. 2. Hyperkalemia, corrected. We will monitor potassium level. 3. Chronic kidney disease stage 3. Creatinine around baseline. Continue to monitor levels. Avoid NSAIDs. 4. Diabetes mellitus type 2 with long-term use of insulin with chronic kidney disease and hyperglycemia. The patient continues to be noncompliant with her diet. The patient is consuming high glycemic index milk shakes and then nursing staff checking blood glucose levels shortly afterwards resulting in inaccurately elevated blood glucose levels. The patient has been counseled extensively. Nursing staff educated on checking blood glucose levels 2 hours postprandial. Insulin dose has been adjusted. We will continue to monitor closely. 5. History of atrial fibrillation, paroxysmal, currently in sinus rhythm. Continue Coumadin for stroke prophylaxis. Dose was adjusted yesterday. INR is up to 3.76. We will hold today's dose. 6. Essential hypertension. Continue home medications, stable. 7. Gastroesophageal reflux disease without esophagitis. Continue PPI. 8. Peripheral vascular disease stable. 9. Gout, stable. 10. Generalized anxiety disorder, stable. 11. Major depressive disorder, currently in remission, stable. 12. Coronary artery disease, [place] artery and [place] heart without angina, stable. 13. Hyperlipidemia, on statin. 14. Deep venous thrombosis prophylaxis. Continue Coumadin. 15. Supratherapeutic INR. Hold Coumadin dose today. Recheck INR in a.m. and adjust accordingly. Plan: Transfer to [facility] once accepted. The patient is medically cleared. Her blood sugar levels are due to iatrogenic ingestion of high glycemic index foods without telling nursing staff, stable for discharge. /SERGO Voice ID: [id number] Report ID: [id number] MTDPatience
[2018-07-22] MEDS: ATORVASTATIN 40 MG TAB PO SCH (21:41)
[2018-07-23] MEDS: PANTOPRAZOLE 40MG TABLET PO SCH (05:33)
[2018-07-23 05:57] LABS: Protime INR 2.81
[2018-07-23] MEDS: INSULIN -REGULAR HUMAN 50 UNIT/0.5 ML ML SQ SCH ×4 (08:39→16:30)
[2018-07-23] MEDS: INSULIN GLARGINE 100 UNITS/ML SQ SCH (08:40)
[2018-07-23] MEDS: PREGABALIN 75 MG CAP PO SCH (08:41)
[2018-07-23] MEDS: FUROSEMIDE 40 MG TABLET PO SCH (08:41)
[2018-07-23] MEDS: ASPIRIN EC 81 MG TAB PO SCH (08:41)
[2018-07-23] MEDS: AMOXICILLIN TRIHYDR 250 MG CAP PO SCH (08:41)
[2018-07-23] MEDS: FERROUS SULFATE 325 MG TAB PO SCH (08:41)
[2018-07-23] MEDS: CITALOPRAM 10 MG TABLET PO SCH (08:42)
[2018-07-23] MEDS: ANASTROZOLE 1 MG TAB PO SCH (08:46)
[2018-07-23] MEDS: NYSTATIN PWDR 100000 UNIT/GM TOP PRN (10:29)
[2018-07-23 15:16] VITALS: O2SAT 94
--- NOTE | 2018-07-23 17:19 | P.DS ---
Admission Date: 07/17/18 Discharge Date: 07/23/18 Disposition: TRANSFER TO HALFWAY Discharge Condition: GOOD Reason for Admission: UTI, hyperglycemia Hospital Course: Admitting Diagnoses: 1. Hyperglycemia. 2. Hyperkalemia. 3. Acute cystitis without hematuria. 4. Atrial fibrillation chronic. 5. Essential hypertension. 6. Diabetes mellitus type 2 with long-term use of insulin with hyperglycemia. 7. Generalized weakness. Discharge Diagnoses: 1. Acute cystitis without hematuria secondary to yeast growing in urine cultures. 2. Hyperkalemia secondary to chronic kidney disease. 3. Chronic kidney disease stage 3. Creatinine is stable. 4. Diabetes mellitus type 2 with long-term use of insulin with uncontrolled hyperglycemia. 5. History of atrial fibrillation paroxysmal. 6. Essential hypertension. 7. Gastroesophageal reflux disease without esophagitis. 8. Peripheral vascular disease. 9. Gout. 10. Generalized anxiety disorder and depression. 11. Coronary artery disease [place] artery and [place] heart without angina. 12. Mixed hyperlipidemia. Hospital Course: The patient is a 77-year-old female, who has had multiple admissions to the hospital for multiple issues including weakness and uncontrolled blood sugars. The patient has also been to rehab recently. The patient comes in with UTI and hyperglycemia with blood sugar level of 753. She was not in DKA. Her UA was consistent with UTI. The patient was started on IV antibiotics. Cultures were obtained. Urine culture grew out E. coli. The patient's insulin was adjusted. Her blood sugars improved. She does have uncontrolled diabetes. The patient did have some generalized weakness and dehydration. She was given IV fluids. She was seen by Physical Therapy as well. The patient's hemoglobin A1c is 10%. She was counseled regarding her uncontrolled diabetes. The patient was then referred to assisted facility due to her comorbid conditions due to the fact that she is unable to have her blood glucose levels properly maintained at home. She requires assistance. She also needs physical therapy and occupational therapy. The patient was then cleared for discharge and was sent to assisted facility in a stable condition. Discharge was held due to patient's blood sugars being high. This was iatrogenic as patient' s family kept in bringing her food. It was noted there was a lot of bananas, granola crackers and cookies and patient's room. Patient was educated on diet control. Her blood sugars did stabilize, and therefore she was discharged and transferred to a assisted facility, [facility] in a stable manner. Vital Signs/Physical Exam: Temp Pulse Resp BP Pulse Ox 98.5 F 80 18 134/63 94 07/23/18 12:00 07/23/18 12:00 07/23/18 12:00 07/23/18 12:00 07/23/18 12:00 General: Alert, In no apparent distress HEENT: Atraumatic, PERRLA, EOMI Neck: Supple, JVD not distended Respiratory: Clear to auscultation bilaterally, Normal air movement Cardiovascular: Regular rate/rhythm, Normal S1 S2 Gastrointestinal: Normal bowel sounds, No tenderness Musculoskeletal: No tenderness Integumentary: No rashes Neurological: Normal speech, Normal tone, Normal affect Lymphatics: No axilla or inguinal lymphadenopathy Laboratory Data at Discharge: WBC 6.4 K/uL (4.3-10.9) 07/22/18 03:57 Hgb 10.4 g/dL (12.0-15.0) L 07/22/18 03:57 Hct 31.6 % (36.0-45.0) L 07/22/18 03:57 Plt Count 231 K/uL (152-406) 07/22/18 03:57 PT 31.9 SECONDS (9.5-12.5) H 07/23/18 05:26 INR 2.81 07/23/18 05:26 Sodium 138 mmol/L (136-145) 07/22/18 03:57 Potassium 4.2 mmol/L (3.5-5.1) 07/22/18 03:57 BUN 62 mg/dL (7-18) H 07/22/18 03:57 Creatinine 2.40 mg/dL (0.55-1.3) H 07/22/18 03:57 Glucose 110 mg/dL (74-106) H 07/22/18 03:57 Magnesium 2.4 mg/dL (1.8-2.4) 07/15/18 16:30 Home Medications: Anastrozole [Arimidex*] 1 mg PO DAILY 07/16/18 Aspirin [Aspir-Low] 81 mg PO DAILY 07/16/18 Atorvastatin Calcium 40 mg PO BEDTIME 07/16/18 Cholecalciferol (Vitamin D3) [Vitamin D3] 1,000 unit PO DAILY 07/16/18 Citalopram [Celexa*] 20 mg PO DAILY 07/16/18 Ferrous Sulfate 325 mg PO DAILY 07/16/18 Furosemide 40 mg PO DAILY 07/16/18 Insulin Degludec [Tresiba Flextouch U-200] 30 unit SQ DAILY 07/16/18 Magnesium Oxide [Mag 0X*] 400 mg PO BID 07/16/18 Pantoprazole [Protonix Tab*] 40 mg PO DAILY 07/16/18 Pregabalin [Lyrica*] 75 mg PO BID 07/16/18 Tramadol HCl [Ultram] 50 mg PO Q6HP PRN 07/16/18 Warfarin Sodium 1 mg PO BEDTIME 07/16/18 Amoxicillin [Amoxil Cap*] 500 mg PO BID 2 Days cap 07/23/18 Insulin -Regular Human [Novolin -R*] See Protocol SQ ACHS ml 07/23/18 Insulin Glargine Human [Lantus*] 40 units SQ DAILY WITH BREAKFAST ml 07/23/18 Patient Discharge Instructions: Please follow up with the primary care physician in 2-3 days. Please return to the emergency room for worsening symptoms Diet: ADA Activity: Ad laz Time spent managing pt's care (in minutes): 55
[2018-07-23 18:29] VITALS: BP 119/54; TEMP 97.5
== END 2018-07-23 20:45 | DRG 690 ==
LOC: ER 14:25 → ERHOLD 19:40 → 2ND 20:10 → OBSVTOIN 07-17 15:45
PROVIDERS: ADMIT Family Medicine; ATTEND Family Medicine
DX: N30.00 Acute cystitis without hematuria (principal); E11.65 Type 2 diabetes mellitus with hyperglycemia; E87.5 Hyperkalemia; I48.2 Chronic atrial fibrillation; I12.9 Hypertensive chronic kidney disease with stage 1 through stage 4 chronic kidney disease, or unspecified chronic kidney disease; N18.3 Chronic kidney disease, stage 3 (moderate); E11.22 Type 2 diabetes mellitus with diabetic chronic kidney disease; B95.2 Enterococcus as the cause of diseases classified elsewhere; Z91.11 Patient's noncompliance with dietary regimen; E78.2 Mixed hyperlipidemia; E11.51 Type 2 diabetes mellitus with diabetic peripheral angiopathy without gangrene; M10.9 Gout, unspecified; F41.1 Generalized anxiety disorder; F32.5 Major depressive disorder, single episode, in full remission; K21.9 Gastro-esophageal reflux disease without esophagitis; I25.10 Atherosclerotic heart disease of native coronary artery without angina pectoris; R53.1 Weakness; I25.2 Old myocardial infarction; Z79.01 Long term (current) use of anticoagulants
CPT/HCPCS: 36415; 80048; 81003; 81015; 82010; 82947; 82962; 83735; 83880; 84484; 85025; 85610; 87077; 87086; 87088; 87186; 93005; 94760; 96365; 96375; 97116; 97161; 97165; 97530; 99285; G0378; J0610; J0696

== ENCOUNTER 2018-08-05 23:49 | Emergency (ER) | payer OTHER ==
--- OUTSIDE RECORDS SUMMARY | 2018-08-05 23:51 | XMS REPORT ---
[...] Date FreeStyle Lite [facility] 03753916617 0 Active CHECK Test BLOOD SUGAR TWICE DAILY Lipitor [facility] 49682455620 40 MG Active 1 TAB(S) ONCE A DAY ORALLY Losartan [facility] 50847206512 100 MG Orally Active 1 tablet Potassium Once a day Meclizine HCl [facility] 94240954401 25 Active CHEW AND SWALLOW 1 TABLET THREE TIMES DAILY Flonase Allergy [facility] 04533137997 50 MCG/ACT Active 1 spray in Relief Nasally Once a each day nostril Ferrous Sulfate [facility] 37287778289 325 (65 Fe) MG Active 1 tablet Orally Once a day Tresiba FlexTouch [facility] 55190692112 200 UNIT/ML Active 70 UNITS Subcutaneous DAILY Increase 2 untis after 3 day if BS are high Citalopram [facility] 92320856515 20 MG Orally Active 1 tablet Hydrobromide Once a day Chlorthalidone [facility] 50647381804 25 MG Orally Active 1 tablet Once a day in the morning with food Tresiba FlexTouch [facility] 41154911651 200 UNIT/ML Active not Subcutaneous defined Anastrozole [facility] 26942352414 1 MG Orally Active 1 tablet Once a day Topamax [facility] 38411196338 50 MG Orally Active 1 tablet Once a day Protonix [facility] 72082181311 40 MG Active 1 TAB(S) ONCE A DAY ORALLY Lipitor [facility] 69250232484 40 MG Orally Active 1 tablet Once a day Coumadin [facility] 45169700073 2 MG Orally Active 1 tablet Once a day BD Pen Needle [facility] 33244691563 0 Active USE DAILY Short U/F Citalopram [facility] 27521163088 20 Active TAKE 1 Hydrobromide TABLET BY MOUTH EVERY DAY Protonix [facility] 21839129950 40 MG Orally Active 1 tablet Once a day Results No Known Results Summary Purpose eClinicalWorks Submission
--- OUTSIDE RECORDS SUMMARY | 2018-08-05 23:51 | XMS REPORT ---
:1940 Author Organization [facility] Address [address] [place] [address] Care Team Providers Name Role Phone Unavailable Unavailable Unavailable Problems This patient has no known problems. Allergies, Adverse Reactions, Alerts This patient has no known allergies or adverse reactions. Medications This patient has no known medications.
--- OUTSIDE RECORDS SUMMARY | 2018-08-05 23:52 | XMS REPORT ---
:1940 Author Organization eClinicalWorks Care Team Providers Name Role Phone Valentín [facility] Provider Role Unavailable Allergies No [...] Status Dosage System Date Date Ferrous Sulfate [facility] 54271337357 325 (65 Fe) MG Active 1 tablet Orally Once a day FreeStyle Lite [facility] 03447508637 0 Active CHECK BLOOD Test SUGAR TWICE DAILY Citalopram [facility] 86349423717 20 Active TAKE 1 Hydrobromide TABLET BY MOUTH EVERY DAY Meclizine HCl [facility] 01194534984 25 Active CHEW AND SWALLOW 1 TABLET THREE TIMES DAILY Lipitor ND 99497826082 40 MG Orally Active 1 tablet Once a day Flonase Allergy ND 88431037614 50 MCG/ACT Active 1 spray in Relief Nasally Once a each day nostril Pantoprazole [facility] 71047752226 40 Active TAKE 1 Sodium TABLET BY MOUTH EVERY DAY FreeStyle [facility] 46968490588 - Oct 11, Active as directed Lancets 2018 HydrALAZINE HCl [facility] 04210517922 25 MG Orally Active 1 tablet Two times a day with food Lyrica [facility] 89541227512 50 MG Orally Oct 30, Active 1 capsule Twice a day 2017 BD Pen Needle [facility] 25064056906 0 Active USE DAILY Short U/F Anastrozole [facility] 62907154486 1 MG Orally Active 1 tablet Once a day Topamax [facility] 77542763999 50 MG Orally Active 1 tablet Once a day Coumadin [facility] 30527678017 2 MG Orally Active 1 tablet Once a day Tresiba [facility] 90172784213 200 UNIT/ML Active INJECT 70 FlexTouch UNITS UNDER THE SKIN EVERY DAY INCREASE 2 UNITS AFTER 3 DAYS IF BLOOD SUGAR IS HIGH Results No Known Results Summary Purpose eClinicalWorks Submission
--- OUTSIDE RECORDS SUMMARY | 2018-08-05 23:52 | XMS REPORT ---
[...] End Status Dosage System Date Date Anastrozole [facility] 49582757396 1 MG Orally Active 1 tablet Once a day Lipitor [facility] 36701165937 40 MG Orally Active 1 tablet Once a day Protonix [facility] 97252731150 40 MG Orally Active 1 tablet Once a day Topamax [facility] 29141191782 50 MG Orally Active 1 tablet Once a day Ferrous Sulfate [facility] 91218472322 325 (65 Fe) MG Active 1 tablet Orally Once a day Lipitor [facility] 15282968261 40 Active 1 TAB(S) ONCE A DAY ORALLY Tresiba FlexTouch [facility] 11836456215 200 UNIT/ML Active 70 UNITS Subcutaneous DAILY Increase 2 untis after 3 day if BS are high HydrALAZINE HCl [facility] 46403979388 25 MG Orally Active 1 tablet Two times a day with food Tresiba FlexTouch [facility] 12892039274 200 UNIT/ML Active not Subcutaneous defined Tresiba FlexTouch [facility] 65216980872 200 UNIT/ML Active INJECT 70 UNITS UNDER THE SKIN EVERY DAY INCREASE 2 UNITS AFTER 3 DAYS IF BLOOD SUGAR IS HIGH FreeStyle Lite [facility] 47202638146 0 Active CHECK Test BLOOD SUGAR TWICE DAILY Losartan [facility] 72068176082 100 MG Orally Inactive 1 tablet Potassium Once a day Pantoprazole [facility] 66746215458 40 Active TAKE 1 Sodium TABLET BY MOUTH EVERY DAY Citalopram [facility] 82669835582 20 Active TAKE 1 Hydrobromide TABLET BY MOUTH EVERY DAY Meclizine HCl [facility] 32451254563 25 Active CHEW AND SWALLOW 1 TABLET THREE TIMES DAILY Citalopram [facility] 42227692001 20 MG Orally Active 1 tablet Hydrobromide Once a day Coumadin [facility] 00260570987 2 MG Orally Active 1 tablet Once a day Lipitor [facility] 84615432494 40 MG Active 1 TAB(S) ONCE A DAY ORALLY Chlorthalidone [facility] 76789125657 25 MG Orally Inactive 1 tablet Once a day in the morning with food Flonase Allergy [facility] 92508533682 50 MCG/ACT Active 1 spray in Relief Nasally Once a each day nostril Protonix [facility] 79386435782 40 MG Active 1 TAB(S) ONCE A DAY ORALLY BD Pen Needle [facility] 62985059497 0 Active USE DAILY Short U/F Results No Known Results Summary Purpose eClinicalWorks Submission
--- OUTSIDE RECORDS SUMMARY | 2018-08-05 23:52 | XMS REPORT ---
:1940 Author Organization eClinicalWorks Care Team Providers Name Role Phone Valentín [facility] Provider Role Unavailable Allergies No [...] Start End Date Status Dosage System Date [facility] 52624052144 - Oct 11, Active as directed Lancets 2018 Results No Known Results Summary Purpose [employer] Submission
--- OUTSIDE RECORDS SUMMARY | 2018-08-05 23:53 | XMS REPORT ---
[...] Status Dosage System Date Date Anastrozole ND 63405472447 1 MG Orally Active 1 tablet Once a day Protonix ND 48226703577 40 MG Orally Active 1 tablet Once a day Flonase Allergy ND 25115887896 50 MCG/ACT Active 1 spray in Relief Nasally Once a each day nostril Citalopram ND 25760726609 20 MG Orally Active 1 tablet Hydrobromide Once a day Furosemide ND 13784564107 20 MG Orally Active 1 tablet Once a day Lipitor [facility] 50563261872 40 Active 1 TAB(S) ONCE A DAY ORALLY Coumadin [facility] 94259741615 2 MG Orally Active 1 tablet Once a day BD Pen Needle [facility] 12579740556 0 Active USE DAILY Short U/F Lyrica [facility] 70261795703 50 MG Orally Active 1 capsule Twice a day Lasix [facility] 01255827129 40 MG Orally Active 1 tablet Twice a day PRN for edema Meclizine HCl [facility] 18946467751 25 Active TAKE 1 TABLET BY MOUTH THREE TIMES DAILY FreeStyle Lite [facility] 16648387508 0 Active CHECK BLOOD Test SUGAR TWICE DAILY Tresiba [facility] 82026892736 200 UNIT/ML Active INJECT 70 FlexTouch UNITS UNDER THE SKIN EVERY DAY INCREASE 2 UNITS AFTER 3 DAYS IF BLOOD SUGAR IS HIGH Lipitor [facility] 20340523225 40 MG Orally Active 1 tablet Once a day Tresiba [facility] 78947352433 200 UNIT/ML Active not defined FlexTouch Subcutaneous Pantoprazole [facility] 76406594503 40 Active TAKE 1 Sodium TABLET BY MOUTH EVERY DAY HydrALAZINE HCl [facility] 93827595611 25 Orally Two Active 1 tablet times a day with food Ferrous Sulfate [facility] 80642542276 325 (65 Fe) MG Active 1 tablet Orally Once a day Topamax [facility] 69596002345 50 MG Orally Active 1 tablet Once a day FreeStyle [facility] 80821603223 - Oct 11, Active as directed Lancets 2018 Results No Known Results Summary Purpose eClinicalWorks Submission
--- OUTSIDE RECORDS SUMMARY | 2018-08-05 23:53 | XMS REPORT ---
[...] End Status Dosage System Date Date Pantoprazole [facility] 55789226054 40 Active TAKE 1 Sodium TABLET BY MOUTH EVERY DAY Lipitor [facility] 46906928412 40 MG Orally Active 1 tablet Once a day Citalopram [facility] 05457316057 20 Active TAKE 1 Hydrobromide TABLET BY MOUTH EVERY DAY Lasix [facility] 54236687528 40 MG Orally Feb 13, Active 1 tablet Twice a day PRN 2019 for edema Losartan [facility] 05848330243 100 MG Orally Inactive 1 tablet Potassium Once a day Flonase Allergy [facility] 42278410489 50 MCG/ACT Active 1 spray in Relief Nasally Once a each day nostril Citalopram [facility] 71643110043 20 MG Orally Active 1 tablet Hydrobromide Once a day Lipitor [facility] 80002431390 40 Active 1 TAB(S) ONCE A DAY ORALLY Anastrozole [facility] 26730123182 1 MG Orally Feb 08, Active 1 tablet Once a day 2019 FreeStyle Lite [facility] 90981347345 0 Active CHECK Test BLOOD SUGAR TWICE DAILY Protonix [facility] 69460354010 40 MG Orally Active 1 tablet Once a day BD Pen Needle [facility] 18163942498 0 Active USE DAILY Short U/F Tresiba [facility] 83179717875 200 UNIT/ML Active INJECT 70 FlexTouch UNITS UNDER THE SKIN EVERY DAY INCREASE 2 UNITS AFTER 3 DAYS IF BLOOD SUGAR IS HIGH Coumadin [facility] 56033705871 2 MG Orally Active 1 tablet Once a day Ferrous Sulfate [facility] 97336686080 325 (65 Fe) MG Active 1 tablet Orally Once a day Meclizine HCl [facility] 82317298913 25 Active TAKE 1 TABLET BY MOUTH THREE TIMES DAILY HydrALAZINE HCl [facility] 23517747394 25 Orally Two Active 1 tablet times a day with food Topamax [facility] 67436563290 50 MG Orally Active 1 tablet Once a day FreeStyle [facility] 57755384764 - Oct 11, Active as Lancets 2018 directed Lyrica [facility] 99269298713 50 MG Orally Active 1 capsule Twice a day Lyrica [facility] 63831326413 50 Active TAKE 1 CAPSULE BY MOUTH TWICE DAILY HydrALAZINE HCl [facility] 53663457358 25 Orally Two Active 1 tablet times a day with food Tresiba [facility] 81823395600 200 UNIT/ML Active not FlexTouch Subcutaneous defined Results No Known Results Summary Purpose eClinicalWorks Submission
--- OUTSIDE RECORDS SUMMARY | 2018-08-05 23:53 | XMS REPORT ---
[...] Status Dosage System Date Date HydrALAZINE HCl [facility] 96751801053 25 Orally Two Active 1 tablet times a day with food Flonase Allergy [facility] 03952649300 50 MCG/ACT Active 1 spray in Relief Nasally Once a each day nostril Topamax [facility] 82717657326 50 MG Orally Active 1 tablet Once a day Tresiba [facility] 06595905166 200 UNIT/ML Active not defined FlexTouch Subcutaneous FreeStyle [facility] 81431137087 - Oct 11, Active as directed Lancets 2018 Anastrozole [facility] 86569652906 1 MG Orally Active 1 tablet Once a day BD Pen Needle [facility] 50285581968 0 Active USE DAILY Short U/F Lyrica [facility] 36363189619 50 MG Orally Active 1 capsule Twice a day Meclizine HCl [facility] 70483492364 25 Active TAKE 1 TABLET BY MOUTH THREE TIMES DAILY Coumadin [facility] 08637042517 2 MG Orally Active 1 tablet Once a day Tresiba [facility] 02878313216 200 UNIT/ML Active INJECT 70 FlexTouch UNITS UNDER THE SKIN EVERY DAY INCREASE 2 UNITS AFTER 3 DAYS IF BLOOD SUGAR IS HIGH FreeStyle Lite [facility] 70892366154 0 Active CHECK BLOOD Test SUGAR TWICE DAILY Protonix [facility] 70522132195 40 MG Orally Active 1 tablet Once a day Citalopram [facility] 31933654906 20 MG Orally Active 1 tablet Hydrobromide Once a day Lipitor [facility] 50522166934 40 Active 1 TAB(S) ONCE A DAY ORALLY Lipitor [facility] 24771104116 40 MG Orally Active 1 tablet Once a day Lasix [facility] 62825100148 40 MG Orally Active 1 tablet Twice a day PRN for edema Ferrous Sulfate [facility] 65427614843 325 (65 Fe) MG Active 1 tablet Orally Once a day Pantoprazole [facility] 40330623227 40 Active TAKE 1 Sodium TABLET BY MOUTH EVERY DAY Results No Known Results Summary Purpose eClinicalWorks Submission
--- OUTSIDE RECORDS SUMMARY | 2018-08-05 23:53 | XMS REPORT ---
[...] End Status Dosage System Date Date Tresiba [facility] 15794220534 200 UNIT/ML Active not defined FlexTouch Subcutaneous Coumadin [facility] 78113215233 2 MG Orally Active 1 tablet Once a day Ferrous Sulfate [facility] 28907234767 325 (65 Fe) MG Active 1 tablet Orally Once a day Protonix [facility] 30968477704 40 MG Orally Active 1 tablet Once a day BD Pen Needle [facility] 52098025649 0 Active USE DAILY Short U/F Lasix [facility] 95435992478 40 MG Orally Active 1 tablet Twice a day PRN for edema Lipitor [facility] 49481501064 40 MG Orally Active 1 tablet Once a day Lipitor [facility] 83311615946 40 Active 1 TAB(S) ONCE A DAY ORALLY HydrALAZINE HCl [facility] 34105673996 25 Orally Two Active 1 tablet times a day with food Pantoprazole [facility] 29353307410 40 Active TAKE 1 Sodium TABLET BY MOUTH EVERY DAY Januvia [facility] 62218774790 100 MG Orally April Active 1 tablet Once a day 2018 Flonase Allergy [facility] 75020635600 50 MCG/ACT Active 1 spray in Relief Nasally Once a each day nostril FreeStyle Lite [facility] 59567302719 0 Active CHECK BLOOD Test SUGAR TWICE DAILY Anastrozole ND 99045734989 1 MG Orally Active 1 tablet Once a day Lyrica [facility] 28745194505 75 MG Orally Active 1 capsule Twice a day FreeStyle [facility] 26584863744 - Oct 11, Active as directed Lancets 2018 Meclizine HCl [facility] 99159894102 25 Active TAKE 1 TABLET BY MOUTH THREE TIMES DAILY Citalopram [facility] 71444366003 20 MG Orally Active 1 tablet Hydrobromide Once a day Topamax [facility] 10764192788 50 MG Orally Active 1 tablet Once a day Tresiba [facility] 58756829924 200 UNIT/ML Active INJECT 70 FlexTouch UNITS UNDER THE SKIN EVERY DAY INCREASE 2 UNITS AFTER 3 DAYS IF BLOOD SUGAR IS HIGH Results No Known Results Summary Purpose eClinicalWorks Submission
--- OUTSIDE RECORDS SUMMARY | 2018-08-05 23:54 | XMS REPORT ---
:1940 Author Organization [employer] Care Team Providers Name Role Phone Valentín Noman Provider Role Unavailable Allergies, Adverse Reactions, Alerts Substance Reaction Event Type Levaquin Info Not Available Drug Allergy Problems Problem Type Condition Code Onset Dates Condition Status Problem Osteoporosis M81.0 Active Problem Edema R60.9 Active Problem Diabetes type 2, uncontrolled E11.65 Active Problem GERD (gastroesophageal reflux K21.9 Active disease) Problem Claudication I73.9 Active Problem Benign essential HTN I10 Active Problem Obesity E66.9 Active Problem Hyperlipidemia E78.5 Active Problem Breast cancer C50.919 Active Problem Gout M10.9 Active Problem Hyperglycemic hyperosmolar E11.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 coma Problem Hypertensive heart and chronic I13.0 Active kidney disease with heart failure and stage 1 through stage 4 chronic kidney disease, or chronic kidney disease Problem Iron deficiency anemia D50.9 Active Problem Stage 4 chronic kidney disease N18.4 Active Problem Kidney stone N20.0 Active Problem Coronary arteriosclerosis I25.10 Active Problem Pulmonary edema J81.1 Active Problem Renal osteodystrophy N25.0 Active Problem Anticoagulated Z79.01 Active Problem Bladder incontinence R32 Active Problem Hyperkalemia E87.5 Active Problem Depression with anxiety F41.8 Active Problem Slow transit constipation K59.01 Active Problem Primary generalized M15.0 Active (osteo)arthritis Problem Secondary hyperparathyroidism, not E21.1 Active elsewhere classified Problem Chronic diastolic (congestive) I50.32 Active heart failure Problem Peripheral vascular disease I73.9 Active Problem At risk for falling Z91.81 Active Problem Insomnia G47.00 Active Problem Carotid artery occlusion I65.29 Active Problem Chronic atrial fibrillation I48.2 Active Problem Back pain M54.9 Active Problem Allergic rhinitis, seasonal J30.2 Active Problem Chronic systolic congestive heart I50.22 Active failure Problem Patient's noncompliance with Z91.11 Active dietary regimen Problem Carcinoma of right female breast, C50.911 Active unspecified estrogen receptor status, unspecified site of breast Problem Peripheral polyneuropathy G62.9 Active Medications Medication Code Code Instructions Start End Status Dosage System Date Date Protonix [facility] 08531167604 40 MG Orally Active 1 tablet Once a day Citalopram [facility] 03181240375 20 MG Orally Active 1 tablet Hydrobromide Once a day Ferrous Sulfate [facility] 12376337645 325 (65 Fe) MG Active 1 tablet Orally Once a day Tresiba [facility] 68129309593 200 UNIT/ML Active INJECT 70 FlexTouch UNITS UNDER THE SKIN EVERY DAY INCREASE 2 UNITS AFTER 3 DAYS IF BLOOD SUGAR IS HIGH FreeStyle Lite [facility] 47825032232 0 Active CHECK Test BLOOD SUGAR TWICE DAILY Coumadin [facility] 65117120350 2 MG Orally Active 1 tablet Once a day Tresiba [facility] 07236190771 200 UNIT/ML Active not FlexTouch Subcutaneous defined HydrALAZINE HCl [facility] 03211804352 25 Orally Two Active 1 tablet times a day with food Lipitor [facility] 40352362872 40 Active 1 TAB(S) ONCE A DAY ORALLY Flonase Allergy [facility] 19058390946 50 MCG/ACT Active 1 spray in Relief Nasally Once a each day nostril Anastrozole [facility] 27888307606 1 MG Orally Active 1 tablet Once a day Aspirin 81 [facility] 56534862726 81 MG Orally Active 1 tablet Once a day Januvia [facility] 74037877141 100 MG Orally Active 1 tablet Once a day Pantoprazole [facility] 85949140766 40 Active TAKE 1 Sodium TABLET BY MOUTH EVERY DAY Lyrica [facility] 03868485941 75 MG Orally Active 1 capsule Twice a day Lasix [facility] 53727306235 20 MG Orally Active 1 tablet Twice a day PRN for edema Meclizine HCl [facility] 37187342178 25 Active TAKE 1 TABLET BY MOUTH THREE TIMES DAILY Lipitor [facility] [address]-48 40 MG Orally Active 1 tablet Once a day FreeStyle [facility] 08080367308 - Oct 11, Active as Lancets 2018 directed Topamax [facility] 77028791447 50 MG Orally Active 1 tablet Once a day BD Pen Needle [facility] 95649850674 0 Active USE DAILY Short U/F Results No Known Results Summary Purpose [employer] Submission
--- NOTE | 2018-08-06 01:29 | EDPHYS ---
Physician Documentation [facility] Name: Sarah Garcia Age: 77 yrs Sex: Female : 1940 Arrival Date: 08/05/2018 Time: 23:58 Bed 14 Private MD: CARMINE Physician Cristóbal Waldron HPI: 08/06 00:33 This 77 yrs old Female presents to ER via EMS with complaints of bilateral pm1 shoulder pain. 00:33 The patient or guardian complains of pain, that is acute. right shoulder and left pm1 shoulder. Context: The problem was sustained at a group home, resulted from physical therapy, The patient reports no decreased range of motion. The patient reports no obvious deformity. Onset: The symptoms/episode began/occurred 1 week(s) ago. Modifying factors: the symptoms are alleviated by remaining still, The symptoms are aggravated by movement, of left and right arms upwards, movements during physical therapy. Associated signs and symptoms: Pertinent negatives: abdominal pain, chest pain, diaphoresis, shortness of breath. Severity of symptoms: in the emergency department the symptoms. Treatment prior to arrival includes: patient was given nitro x 1 for bilateral shoulder pain. The patient has not experienced similar symptoms in the past. Patient in group home for two weeks and reports onset of bilateral shoulder pain for the past 1 week that she attributes to physical therapy involving the use of her arms and shoulders. Patient reports pain in both shoulders is worse with moving both of her arms upwards. Historical: - Allergies: 00:09 QUINOLONES; jd3 - Home Meds: 00:09 alprazolam 0.25 mg Oral tab PRN [Active]; aspirin 81 mg Oral chew 1 tab once daily jd3 [Active]; meclizine 25 mg Oral tab [Active]; Altace 2.5 mg Oral cap once daily [Active]; atorvastatin 40 mg Oral tab 1 tab once daily [Active]; chlorthalidone 25 mg Oral tab 1 tab once daily [Active]; anastrozole 1 mg Oral tab 1 tab once daily [Active]; citalopram 20 mg tab 1 tab once daily [Active]; ferrous sulfate 325 mg (65 mg iron) Oral tab [Active]; metoprolol succinate 100 mg Oral Tb24 0.5 tab once daily [Active]; Ambien Oral [Active]; sitagliptin 30mg Oral 1 tab once daily [Active]; pantoprazole 40 mg Oral TbEC 1 tab once daily [Active]; Vitamin D3 Oral [Active]; Tresiba FlexTouch U-200 200 unit/mL (3 mL) subcutaneous inpn 58 unit nightly [Active]; warfarin 2 mg Oral tab 1 tab once daily [Active]; 02:48 Celexa 20 mg Oral tab 1 tab once daily [Active]; furosemide 40 mg Oral tab 1 tab once jb4 daily [Active]; omeprazole 20 mg Oral cpDR 1 cap once daily [Active]; magnesium oxide 400 mg Oral tab [Active]; pregabalin Oral [Active]; - PMHx: 00:09 Cancer, Breast; High Cholesterol; Hyperlipidemia; Myocardial infarction; GERD; jd3 Hypertension; Diabetes - IDDM; Atrial Fib; DVT; neuropathy; stage 4 kidney disease; - Immunization history:: Adult Immunizations unknown. - Social history:: Smoking status: Patient/guardian denies using tobacco. - Ebola Screening: : Patient negative for fever greater than or equal to 101.5 degrees Fahrenheit, and additional compatible Ebola Virus Disease symptoms. ROS: 00:33 Constitutional: Negative for fever, chills, and weight loss, Eyes: Negative for injury, pm1 pain, redness, and discharge, ENT: Negative for injury, pain, and discharge, Neck: Negative for injury, pain, and swelling, Cardiovascular: Negative for chest pain, palpitations, and edema, Respiratory: Negative for shortness of breath, cough, wheezing, and pleuritic chest pain, Abdomen/GI: Negative for abdominal pain, nausea, vomiting, diarrhea, and constipation, Back: Negative for injury and pain, : Negative for injury, bleeding, discharge, and swelling. 00:33 Skin: Negative for injury, rash, and discoloration, Neuro: Negative for headache, weakness, numbness, tingling, and seizure. 00:33 MS/extremity: Positive for pain, of the left shoulder and right shoulder, Negative for decreased range of motion, deformity. Exam: 00:33 Constitutional: This is a well developed, well nourished patient who is awake, alert, pm1 and in no acute distress. Head/Face: Normocephalic, atraumatic. Eyes: Pupils equal round and reactive to light, extra-ocular motions intact. Lids and lashes normal. Conjunctiva and sclera are non-icteric and not injected. Cornea within normal limits. Periorbital areas with no swelling, redness, or edema. ENT: Nares patent. No nasal discharge, no septal abnormalities noted. Tympanic membranes are normal and external auditory canals are clear. Oropharynx with no redness, swelling, or masses, exudates, or evidence of obstruction, uvula midline. Mucous membranes moist. Neck: Trachea midline, no thyromegaly or masses palpated, and no cervical lymphadenopathy. Supple, full range of motion without nuchal rigidity, or vertebral point tenderness. No Meningismus. Chest/axilla: Normal chest wall appearance and motion. Nontender with no deformity. No lesions are appreciated. Cardiovascular: Regular rate and rhythm with a normal S1 and S2. No gallops, murmurs, or rubs. Normal PMI, no JVD. No pulse deficits. Respiratory: Lungs have equal breath sounds bilaterally, clear to auscultation and percussion. No rales, rhonchi or wheezes noted. No increased work of breathing, no retractions or nasal flaring. Abdomen/GI: Soft, non-tender, with normal bowel sounds. No distension or tympany. No guarding or rebound. No evidence of tenderness throughout. Back: No spinal tenderness. No costovertebral tenderness. Full range of motion. Skin: Warm, dry with normal turgor. Normal color with no rashes, no lesions, and no evidence of cellulitis. 00:33 Musculoskeletal/extremity: Extremities: grossly normal except: noted in the left shoulder and right shoulder: tenderness, Circulation is intact in all extremities. Sensation intact. 00:33 Neuro: Orientation: is normal, Mentation: is normal, Motor: is normal, moves all fours, Sensation: is normal, no obvious gross deficits. Vital Signs: 00:09 BP 148 / 51; Pulse 76; Resp 19 S; Temp 98.7(TE); Pulse Ox 100% on R/A; Weight 77.11 kg jd3 (R); Height 5 ft. 2 in. (157.48 cm) (R); Pain 3; 01:00 BP 129 / 54; Pulse 75; Resp 20; Pulse Ox 95% on 1 lpm NC; jb4 02:15 BP 155 / 99; Pulse 87; Resp 20; Pulse Ox 95% on 1 lpm NC; jb4 03:30 BP 148 / 88; Pulse 88; Resp 18; Pulse Ox 93% on R/A; jb4 04:00 BP 159 / 59; Pulse 86; Resp 20; Pulse Ox 91% on R/A; jb4 05:00 BP 106 / 77; Pulse 90; Resp 19; Pulse Ox 95% on R/A; jb4 05:53 BP 117 / 58; Pulse 90; Resp 16; Pulse Ox 98% on R/A; jb4 06:34 BP 133 / 49; Pulse 82; Resp 19; Pulse Ox 93% on R/A; jb4 07:30 BP 132 / 52; Pulse 72; Resp 16; Pulse Ox 95% on R/A; sg 00:09 Body Mass Index 31.09 (77.11 kg, 157.48 cm) jd3 MDM: 00:06 Patient medically screened. susie 01:28 Data reviewed: vital signs. Data interpreted: Pulse oximetry: on room air is 100 %. pm1 Interpretation: normal. Counseling: I had a detailed discussion with the patient and/or guardian regarding: the historical points, exam findings, and any diagnostic results supporting the discharge/admit diagnosis, radiology results, the need for outpatient follow up, to return to the emergency department if symptoms worsen or persist or if there are any questions or concerns that arise at home. 02:05 ED course: Patient's complaint changed with arrival of son to room. Patient now pm1 reporting that she had shortness of breath that started last night with some chest pressure. Patient does not have any chest pain at the moment. Reports some shortness of breath. 04:30 Special discussion: I discussed with the patient/guardian in detail that at this point pm1 there is no indication for admission to the hospital. It is understood, however, that if the symptoms persist or worsen the patient needs to return immediately for re-evaluation. 04:32 ED course: Patient without any shortness of breath present. Patient responsive to Lasix pm1 and recommend that the patient double up her daily Lasix dosage for 3 days and follow up with PCP. I would like the patient to take Lasix 40 mg PO BID. 04:32 Counseling: I had a detailed discussion with the patient and/or guardian regarding: the pm1 historical points, exam findings, and any diagnostic results supporting the discharge/admit diagnosis, lab results, radiology results, the need for outpatient follow up, to return to the emergency department if symptoms worsen or persist or if there are any questions or concerns that arise at home. 08/06 02:04 Order name: Basic Metabolic Panel pm1 08/06 02:04 Order name: CBC with Diff pm08/06 02:04 Order name: LFT's; Complete Time: 03:27 pm1 08/06 02:04 Order name: Magnesium; Complete Time: 03:27 pm1 08/06 02:04 Order name: NT PRO-BNP; Complete Time: 03:27 pm1 08/06 02:04 Order name: PT-INR; Complete Time: 02:33 pm1 08/06 00:32 Order name: Shoulder Right (2 View) XRAY pm08/06 00:32 Order name: Shoulder Left (2 View) XRAY pm1 08/06 02:04 Order name: Troponin (emerg Dept Use Only); Complete Time: 03:27 pm1 08/06 02:04 Order name: XRAY Chest (1 view) pm1 08/06 02:04 Order name: EKG; Complete Time: 02:05 pm1 08/06 02:05 Order name: Basic Metabolic Panel; Complete Time: 03:27 EDMS 08/06 02:05 Order name: CBC with Automated Diff; Complete Time: 02:33 EDMS 08/06 02:04 Order name: Cardiac monitoring; Complete Time: 02:49 pm1 08/06 02:04 Order name: EKG - Nurse/Tech; Complete Time: 02:42 pm1 08/06 02:04 Order name: IV Saline Lock; Complete Time: 02:28 pm1 08/06 02:04 Order name: Labs collected and sent; Complete Time: 02:27 pm1 08/06 02:04 Order name: O2 Per Protocol; Complete Time: 02:27 pm1 08/06 02:04 Order name: O2 Sat Monitoring; Complete Time: 02:27 pm1 Administered Medications: 03:33 Drug: Lasix 20 mg Route: IVP; Site: left hand; jb4 05:09 Follow up: Response: No adverse reaction jb4 Disposition: 09:07 Co-signature as Attending Physician, Cristóbal KELLEY I agree with the assessment and susie plan of care. Disposition: 08/06/18 04:31 Discharged to Home. Impression: Pain in left shoulder, Pain in right shoulder, Congestive heart failure. - Condition is Stable. - Discharge Instructions: Joint Pain, Arthritis, Heart Failure, Shoulder Pain, Shoulder Range of Motion Exercises. - Prescriptions for Lasix 40 mg Oral Tablet - take 1 tablet by ORAL route 2 times per day for 3 days Lasix 40 mg PO BID for 3 days then Lasix 40 mg PO once daily. Hold for systolic blood pressure less than 100 and heart rate less than 60; 6 tablet. - Medication Reconciliation Form, Thank You Letter, Antibiotic Education, Prescription Opioid Use form. - Follow up: Emergency Department; When: As needed; Reason: Worsening of condition. Follow up: Private Physician; When: 2 - 3 days; Reason: Recheck today's complaints, Continuance of care, Re-evaluation by your physician. - Problem is new. - Symptoms have improved. Signatures: Dispatcher [employer] EDMS Tutu Dozier RN RN sg Cristóbal Waldron MD MD cha Marinas, Patrick, NEELIMA TESTER REGULATOR pm1 Rosales Martinez RN RN jb4 Aleks Solis RN RN jd3 Corrections: (The following items were deleted from the chart) 02:04 01:29 08/06/2018 01:29 Discharged to Home. Impression: Pain in left shoulder; Pain in pm1 right shoulder. Condition is Stable. Forms are Medication Reconciliation Form, Thank You Letter, Antibiotic Education, Prescription Opioid Use. Follow up: Emergency Department; When: As needed; Reason: Worsening of condition. Follow up: Private Physician; When: 2 - 3 days; Reason: Recheck today's complaints, Continuance of care, Re-evaluation by your physician. Problem is new. Symptoms have improved. pm1 04:39 04:31 08/06/2018 04:31 Discharged to Home. Impression: Pain in left shoulder; Pain in pm1 right shoulder. Condition is Stable. Forms are Medication Reconciliation Form, Thank You Letter, Antibiotic Education, Prescription Opioid Use. Follow up: Emergency Department; When: As needed; Reason: Worsening of condition. Follow up: Private Physician; When: 2 - 3 days; Reason: Recheck today's complaints, Continuance of care, Re-evaluation by your physician. Problem is new. Symptoms have improved. pm1 08:31 04:39 08/06/2018 04:31 Discharged to Home. Impression: Pain in left shoulder; Pain in sg right shoulder; Congestive heart failure. Condition is Stable. Discharge Instructions: Joint Pain, Arthritis, Shoulder Pain, Shoulder Range of Motion Exercises. Forms are Medication Reconciliation Form, Thank You Letter, Antibiotic Education, Prescription Opioid Use. Follow up: Emergency Department; When: As needed; Reason: Worsening of condition. Follow up: Private Physician; When: 2 - 3 days; Reason: Recheck today's complaints, Continuance of care, Re-evaluation by your physician. Problem is new. Symptoms have improved. pm1
--- NOTE | 2018-08-06 01:29 | ER ---
Nurse's Notes [facility] Name: Sarah Garcia Age: 77 yrs Sex: Female : 1940 Arrival Date: 08/05/2018 Time: 23:58 Bed 14 Private MD: Diagnosis: Pain in left shoulder;Pain in right shoulder;Congestive heart failure Presentation: 08/05 23:59 Presenting complaint: EMS states: "we were called for a patient with chest pain. when jd3 we got there we were told by the patient that she was only having sore shoulders after physical therapy. the nurse at [facility] reported that she was having chest pain and gave 1 nitro tab. The patient continue to deny she was having chest pain, but agreed to come to the ER.". Transition of care: patient was not received from another setting of care. Onset of symptoms was August 06, 2018. Risk Assessment: Do you want to hurt yourself or someone else? Patient reports no desire to harm self or others. Initial Sepsis Screen: Does the patient meet any 2 criteria? No. Patient's initial sepsis screen is negative. Does the patient have a suspected source of infection? No. Patient's initial sepsis screen is negative. Care prior to arrival: None. 23:59 Method Of Arrival: EMS: [facility] jd3 23:59 Acuity: CHRISS 4 jd3 Historical: - Allergies: 08/06 00:09 QUINOLONES; jd3 - Home Meds: 00:09 alprazolam 0.25 mg Oral tab PRN [Active]; aspirin 81 mg Oral chew 1 tab once daily jd3 [Active]; meclizine 25 mg Oral tab [Active]; Altace 2.5 mg Oral cap once daily [Active]; atorvastatin 40 mg Oral tab 1 tab once daily [Active]; chlorthalidone 25 mg Oral tab 1 tab once daily [Active]; anastrozole 1 mg Oral tab 1 tab once daily [Active]; citalopram 20 mg tab 1 tab once daily [Active]; ferrous sulfate 325 mg (65 mg iron) Oral tab [Active]; metoprolol succinate 100 mg Oral Tb24 0.5 tab once daily [Active]; Ambien Oral [Active]; sitagliptin 30mg Oral 1 tab once daily [Active]; pantoprazole 40 mg Oral TbEC 1 tab once daily [Active]; Vitamin D3 Oral [Active]; Tresiba FlexTouch U-200 200 unit/mL (3 mL) subcutaneous inpn 58 unit nightly [Active]; warfarin 2 mg Oral tab 1 tab once daily [Active]; 02:48 Celexa 20 mg Oral tab 1 tab once daily [Active]; furosemide 40 mg Oral tab 1 tab once jb4 daily [Active]; omeprazole 20 mg Oral cpDR 1 cap once daily [Active]; magnesium oxide 400 mg Oral tab [Active]; pregabalin Oral [Active]; - PMHx: 00:09 Cancer, Breast; High Cholesterol; Hyperlipidemia; Myocardial infarction; GERD; jd3 Hypertension; Diabetes - IDDM; Atrial Fib; DVT; neuropathy; stage 4 kidney disease; - Immunization history:: Adult Immunizations unknown. - Social history:: Smoking status: Patient/guardian denies using tobacco. - Ebola Screening: : Patient negative for fever greater than or equal to 101.5 degrees Fahrenheit, and additional compatible Ebola Virus Disease symptoms. Screenin:00 Abuse screen: Denies threats or abuse. Nutritional screening: No deficits noted. jb4 Tuberculosis screening: No symptoms or risk factors identified. Fall Risk None identified. Assessment: 00:00 General: Appears in no apparent distress. comfortable, Behavior is calm, cooperative, jb4 appropriate for age, EMS reports reason for transfer was chest pain per nurse at [facility]. Pt denies having or ever having chest pain. . Pain: Complains of pain in Left and right shoulder. Pain does not radiate. Pain currently is 3 out of 10 on a pain scale. Neuro: Level of Consciousness is awake, alert, obeys commands, Oriented to person, place, time, situation. Cardiovascular: Patient's skin is warm and dry. Respiratory: Airway is patent Respiratory effort is even, unlabored, Respiratory pattern is regular, symmetrical. GI: No signs and/or symptoms were reported involving the gastrointestinal system. : No signs and/or symptoms were reported regarding the genitourinary system. EENT: No signs and/or symptoms were reported regarding the EENT system. Derm: Skin is intact, Skin is pink, warm \\T\\ dry. Musculoskeletal: Circulation, motion, and sensation intact. 00:20 Reassessment: PT O2 \\T\\ 90-93 placed on 1L NC. jb4 01:00 Reassessment: Patient appears in no apparent distress at this time. Patient and/or jb4 family updated on plan of care and expected duration. Pain level reassessed. Patient is alert, oriented x 3, equal unlabored respirations, skin warm/dry/pink. 01:42 Reassessment: Patient appears in no apparent distress at this time. Patient and/or jb4 family updated on plan of care and expected duration. Pain level reassessed. Patient is alert, oriented x 3, equal unlabored respirations, skin warm/dry/pink. 02:10 Reassessment: Patient appears in no apparent distress at this time. Patient and/or jb4 family updated on plan of care and expected duration. Pain level reassessed. Patient is alert, oriented x 3, equal unlabored respirations, skin warm/dry/pink. PT reports that she had shortness of breath starting last night at 11pm. Currently has some shortness of breath. 02:10 Respiratory: Breath sounds are clear bilaterally. jb4 03:21 Reassessment: Patient appears in no apparent distress at this time. Patient and/or jb4 family updated on plan of care and expected duration. Pain level reassessed. Patient is alert, oriented x 3, equal unlabored respirations, skin warm/dry/pink. 04:00 Reassessment: Patient appears in no apparent distress at this time. Patient and/or jb4 family updated on plan of care and expected duration. Pain level reassessed. Patient is alert, oriented x 3, equal unlabored respirations, skin warm/dry/pink. 04:55 Reassessment: Report called to receiving nurse \\\\ [place]. jb4 05:14 Reassessment: Patient appears in no apparent distress at this time. Patient and/or jb4 family updated on plan of care and expected duration. Pain level reassessed. Patient is alert, oriented x 3, equal unlabored respirations, skin warm/dry/pink. 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 They stated that [facility] called them to [facility] chicken picker pt. They state that due to pt being wheelchair bound she could not be transported by them and plus [facility] called 911 which was not appropriate. I spoke with Farida at [facility] and explained that need transfer truck not 911 truck. She contacted [facility] who will be here at approx 0630. 06:34 Reassessment: Patient appears in no apparent distress at this time. Patient and/or jb4 family updated on plan of care and expected duration. Pain level reassessed. Pt is resting in bed with eyes closed respirations are even and unlabored, no s/s of distress or pain noted. Vital Signs: 00:09 BP 148 / 51; Pulse 76; Resp 19 S; Temp 98.7(TE); Pulse Ox 100% on R/A; Weight 77.11 kg jd3 (R); Height 5 ft. 2 in. (157.48 cm) (R); Pain 3/10; 01:00 BP 129 / 54; Pulse 75; Resp 20; Pulse Ox 95% on 1 lpm NC; jb4 02:15 BP 155 / 99; Pulse 87; Resp 20; Pulse Ox 95% on 1 lpm NC; jb4 03:30 BP 148 / 88; Pulse 88; Resp 18; Pulse Ox 93% on R/A; jb4 04:00 BP 159 / 59; Pulse 86; Resp 20; Pulse Ox 91% on R/A; jb4 05:00 BP 106 / 77; Pulse 90; Resp 19; Pulse Ox 95% on R/A; jb4 05:53 BP 117 / 58; Pulse 90; Resp 16; Pulse Ox 98% on R/A; jb4 06:34 BP 133 / 49; Pulse 82; Resp 19; Pulse Ox 93% on R/A; jb4 07:30 BP 132 / 52; Pulse 72; Resp 16; Pulse Ox 95% on R/A; sg 00:09 Body Mass Index 31.09 (77.11 kg, 157.48 cm) [facility] ED Course: 08/05 23:58 Patient arrived in ED. jd3 07 00:00 Patient has correct armband on for positive identification. Bed in low position. Call jb4 light in reach. Side rails up X 1. Pulse ox on. NIBP on. 00:03 Buck Parekh NP is PHCP. pm1 00:03 Cristóbal Waldron MD is Attending Physician. pm1 00:07 Triage completed. jd3 00:10 Arm band placed on. jd3 00:42 Rosales Martinez RN is Primary Nurse. jb4 01:01 X-ray completed. Portable x-ray completed in exam room. Patient tolerated procedure kw well. 01:02 Shoulder Right (2 View) XRAY In Process Unspecified. EDMS 01:03 Shoulder Left (2 View) XRAY In Process Unspecified. EDMS 02:29 XRAY Chest (1 view) In Process Unspecified. EDMS 02:30 Initial lab(s) drawn, by me, sent to lab. Inserted saline lock: 22 gauge in right jb4 antecubital area, using aseptic technique. Blood collected. 03:00 IV discontinued, intact, bleeding controlled, No redness/swelling at site. jb4 03:10 Missed attempt(s): 22 gauge in left antecubital area. 24 gauge in left forearm. jb4 Bleeding controlled, band aid applied, catheter tip intact. 03:24 Inserted saline lock: 22 gauge in left wrist, using aseptic technique. tl2 07:21 Primary Nurse role handed off by Rosales Martinez, RN sg 07:21 Tutu Dozier, RN is Primary Nurse. sg 08:30 No provider procedures requiring assistance completed. sg Administered Medications: 03:33 Drug: Lasix 20 mg Route: IVP; Site: left hand; jb4 05:09 Follow up: Response: No adverse reaction jb4 Outcome: 01:29 Discharge ordered by MD. pm1 04:31 Discharge ordered by MD. pm1 08:29 Discharged to intermediate. Report called to report called by hourly shift manager nurse Thony erwin RN 08:29 Condition: good 08:29 Discharge instructions given to patient, Discharge instructions provided by MARANDA Bhandari Instructed on discharge instructions, follow up and referral plans. safety practices, Demonstrated understanding of instructions. 08:31 Patient left the ED. sg Signatures: Dispatcher [employer] EDPR Tutu Dozier RN RN Rebeca Buck RN RN Nata Mccoy Patrick, NP CUT OUT STITCHER pm1 Brittany Steele RN RN tl2 Rosales Martinez RN RN jb4 Aleks Solis RN RN jd3 Corrections: (The following items were deleted from the chart) 07:11 05:14 Reassessment: Patient appears in no apparent distress at this time. Patient jb4 and/or family updated on plan of care and expected duration. Pain level reassessed. Patient is alert, oriented x 3, equal unlabored respirations, skin warm/dry/pink. jb4
[2018-08-06 02:30] LABS: Absolute Lymphocytes (CBC) 1.7 K/uL (0.7-4.9); Basophils % 0.6 % (0-1.3); Hematocrit 32.9 % (36.0-45.0); Lymphocytes % 18.8 % (15.3-44.8); MPV 9.2 fL (7.6-11.3); Monocytes % 4.6 % (3.3-12.3); RBC Red Blood Cell Count 3.45 M/uL (3.86-4.86)
[2018-08-06 02:31] LABS: Protime INR 1.19
[2018-08-06 02:51] LABS: ALT/SGPT 15 U/L (12-78); AST/SGOT 16 U/L (15-37); Albumin 2.9 g/dL (3.4-5.0); Alkaline Phosphatase 113 U/L (45-117); BUN Blood Urea Nitrogen 44 mg/dL (7-18); Bicarbonate 31 mmol/L (21-32); Bilirubin Direct 0.1 mg/dL (0-0.2); Bilirubin Total 0.4 mg/dL (0.2-1.0); Glucose Level 105 mg/dL (74-106); Magnesium 2.1 mg/dL (1.8-2.4); NT PRO-BNP 4438 pg/mL (<450); Potassium 4.5 mmol/L (3.5-5.1); Protein, Total 6.9 g/dL (6.4-8.2); Sodium Level 144 mmol/L (136-145); Troponin (Emerg Dept Use Only) < 0.02 ng/mL (0.0-0.045)
[2018-08-06] MEDS ORDERED: FUROSEMIDE 20 MG/ 2ML VIAL ONE (03:40)
--- NOTE | 2018-08-06 08:17 | RAD REPORT ---
EXAM DESCRIPTION: RAD - Shoulder Right 2 View - 08/06/2018 1:05 am CLINICAL HISTORY: PAIN COMPARISON: No comparisons FINDINGS: Mild glenohumeral and AC joint arthritic changes are present. Mild subacromial outlet narr owing seen. No acute fracture or dislocation evident.
--- NOTE | 2018-08-06 08:18 | RAD REPORT ---
EXAM DESCRIPTION: RAD - Shoulder Left 2 View - 08/06/2018 1:05 am CLINICAL HISTORY: PAIN COMPARISON: Shoulder Left 2 View dated 07/13/2018 FINDINGS: Mild AC joint and glenohumeral joint arthritic changes are present. Mild subacromial outle t narrowing is seen. No acute fracture or dislocation evident.
--- NOTE | 2018-08-06 08:19 | RAD REPORT ---
EXAM DESCRIPTION: RAD - Chest Single View - 08/06/2018 2:29 am CLINICAL HISTORY: SOB Chest pain. COMPARISON: Chest Single View dated 06/14/2018; Chest Single View dated 02/22/2018; Chest Single View dated 02/20/2018; Abdomen 1 View (KUB) dated 02/19/2018 FINDINGS: Portable technique limits examination quality. Underinflated lungs are seen with mild to moderate pulmonary edema. The heart is moderately enlarged in size. Aortic atherosclerosis. IMPRESSION: Mild to moderate CHF.
--- NOTE | 2018-08-06 10:57 | EKG ---
Test Date: 2018-08-06 Test Time: 02:35:00 Transportation Director: ERICA MEASUREMENT RESULTS: Intervals: Rate: 86 MS: 156 QRSD: 70 QT: 364 QTc: 435 [place]: P: 12 MS: 156 QRS: -6 T: 46 INTERPRETIVE STATEMENTS: Normal sinus rhythm Inferior infarct, age undetermined Abnormal ECG Compared to ECG 07/15/2018 14:30:09 Left ventricular hypertrophy no longer present Myocardial infarct finding still present Electronically Signed On 08-06-18 10:54:52 CDT by Kristopher Nino
[2018-08-07 18:45] VITALS: BP 132/52; TEMP 98.7; O2SAT 95
== END 2018-08-06 08:31 | disposition home or self-care (01) ==
LOC: ER 23:49
DX: M25.512 Pain in left shoulder (principal); M25.511 Pain in right shoulder; I50.9 Heart failure, unspecified; E11.22 Type 2 diabetes mellitus with diabetic chronic kidney disease; I13.0 Hypertensive heart and chronic kidney disease with heart failure and stage 1 through stage 4 chronic kidney disease, or unspecified chronic kidney disease; N18.4 Chronic kidney disease, stage 4 (severe); I48.91 Unspecified atrial fibrillation; I25.2 Old myocardial infarction; Z79.82 Long term (current) use of aspirin; Z88.8 Allergy status to other drugs, medicaments and biological substances; Z85.3 Personal history of malignant neoplasm of breast
CPT/HCPCS: 93005; 85025; 80048; 36415; 83735; 85610; 80076; 84484; 83880; 71045; 73030 ×2; 96374; 99284; J1940

== ENCOUNTER 2018-08-19 11:02 | Inpatient (IN) | payer OTHER ==
--- OUTSIDE RECORDS SUMMARY | 2018-08-19 11:05 | XMS REPORT ---
:1940 [facility] Address [address] [place] [address] Care Team Providers Name Role Phone Unavailable Unavailable Unavailable Problems This patient has no known problems. Allergies, Adverse Reactions, Alerts This patient has no known allergies or adverse reactions. Medications This patient has no known medications.
--- OUTSIDE RECORDS SUMMARY | 2018-08-19 11:05 | XMS REPORT ---
[...] Status Dosage System Date Date FreeStyle Lite [facility] 72902120516 0 Active CHECK Test BLOOD SUGAR TWICE DAILY Lipitor [facility] 11421188521 40 MG Active 1 TAB(S) ONCE A DAY ORALLY Losartan [facility] 52303806974 100 MG Orally Active 1 tablet Potassium Once a day Meclizine HCl [facility] 11600337581 25 Active CHEW AND SWALLOW 1 TABLET THREE TIMES DAILY Flonase Allergy [facility] 13791503443 50 MCG/ACT Active 1 spray in Relief Nasally Once a each day nostril Ferrous Sulfate [facility] 62240659630 325 (65 Fe) MG Active 1 tablet Orally Once a day Tresiba FlexTouch [facility] 56621808140 200 UNIT/ML Active 70 UNITS Subcutaneous DAILY Increase 2 untis after 3 day if BS are high Citalopram [facility] 91429604479 20 MG Orally Active 1 tablet Hydrobromide Once a day Chlorthalidone [facility] 51058139298 25 MG Orally Active 1 tablet Once a day in the morning with food Tresiba FlexTouch [facility] 92919538971 200 UNIT/ML Active not Subcutaneous defined Anastrozole [facility] 21868652474 1 MG Orally Active 1 tablet Once a day Topamax [facility] 89050294509 50 MG Orally Active 1 tablet Once a day Protonix [facility] 57415127507 40 MG Active 1 TAB(S) ONCE A DAY ORALLY Lipitor [facility] 05570805312 40 MG Orally Active 1 tablet Once a day Coumadin [facility] 91970083476 2 MG Orally Active 1 tablet Once a day BD Pen Needle [facility] 32821616676 0 Active USE DAILY Short U/F Citalopram [facility] 73604057542 20 Active TAKE 1 Hydrobromide TABLET BY MOUTH EVERY DAY Protonix [facility] 05037619583 40 MG Orally Active 1 tablet Once a day Results No Known Results Summary Purpose eClinicalWorks Submission
--- OUTSIDE RECORDS SUMMARY | 2018-08-19 11:06 | XMS REPORT ---
[...] Dosage System Date Date Ferrous Sulfate [facility] 23743427089 325 (65 Fe) MG Active 1 tablet Orally Once a day FreeStyle Lite [facility] 81261669327 0 Active CHECK BLOOD Test SUGAR TWICE DAILY Citalopram [facility] 68123284781 20 Active TAKE 1 Hydrobromide TABLET BY MOUTH EVERY DAY Meclizine HCl [facility] 70882038067 25 Active CHEW AND SWALLOW 1 TABLET THREE TIMES DAILY Lipitor ND 21602142928 40 MG Orally Active 1 tablet Once a day Flonase Allergy ND 71816710699 50 MCG/ACT Active 1 spray in Relief Nasally Once a each day nostril Pantoprazole [facility] 13660402862 40 Active TAKE 1 Sodium TABLET BY MOUTH EVERY DAY FreeStyle [facility] 68822239798 - Oct 11, Active as directed Lancets 2018 HydrALAZINE HCl [facility] 42576766885 25 MG Orally Active 1 tablet Two times a day with food Lyrica [facility] 45660013507 50 MG Orally Oct 30, Active 1 capsule Twice a day 2017 BD Pen Needle [facility] 95677800904 0 Active USE DAILY Short U/F Anastrozole [facility] 36648696413 1 MG Orally Active 1 tablet Once a day Topamax [facility] 33146796139 50 MG Orally Active 1 tablet Once a day Coumadin [facility] 02818313460 2 MG Orally Active 1 tablet Once a day Tresiba [facility] 23918079350 200 UNIT/ML Active INJECT 70 FlexTouch UNITS UNDER THE SKIN EVERY DAY INCREASE 2 UNITS AFTER 3 DAYS IF BLOOD SUGAR IS HIGH Results No Known Results Summary Purpose eClinicalWorks Submission
--- OUTSIDE RECORDS SUMMARY | 2018-08-19 11:06 | XMS REPORT ---
[...] Status Dosage System Date Date Anastrozole [facility] 78741121349 1 MG Orally Active 1 tablet Once a day Lipitor [facility] 17862578929 40 MG Orally Active 1 tablet Once a day Protonix [facility] 00402208266 40 MG Orally Active 1 tablet Once a day Topamax [facility] 37733902940 50 MG Orally Active 1 tablet Once a day Ferrous Sulfate [facility] 07128676051 325 (65 Fe) MG Active 1 tablet Orally Once a day Lipitor [facility] 80401981995 40 Active 1 TAB(S) ONCE A DAY ORALLY Tresiba FlexTouch [facility] 33957376050 200 UNIT/ML Active 70 UNITS Subcutaneous DAILY Increase 2 untis after 3 day if BS are high HydrALAZINE HCl [facility] 33987165266 25 MG Orally Active 1 tablet Two times a day with food Tresiba FlexTouch [facility] 70197589010 200 UNIT/ML Active not Subcutaneous defined Tresiba FlexTouch [facility] 62639819792 200 UNIT/ML Active INJECT 70 UNITS UNDER THE SKIN EVERY DAY INCREASE 2 UNITS AFTER 3 DAYS IF BLOOD SUGAR IS HIGH FreeStyle Lite [facility] 57991143921 0 Active CHECK Test BLOOD SUGAR TWICE DAILY Losartan [facility] 93606017583 100 MG Orally Inactive 1 tablet Potassium Once a day Pantoprazole [facility] 62911786012 40 Active TAKE 1 Sodium TABLET BY MOUTH EVERY DAY Citalopram [facility] 20590797308 20 Active TAKE 1 Hydrobromide TABLET BY MOUTH EVERY DAY Meclizine HCl [facility] 94083530715 25 Active CHEW AND SWALLOW 1 TABLET THREE TIMES DAILY Citalopram [facility] 89499249191 20 MG Orally Active 1 tablet Hydrobromide Once a day Coumadin [facility] 58559648627 2 MG Orally Active 1 tablet Once a day Lipitor [facility] 73935349909 40 MG Active 1 TAB(S) ONCE A DAY ORALLY Chlorthalidone [facility] 48894784686 25 MG Orally Inactive 1 tablet Once a day in the morning with food Flonase Allergy [facility] 36599176255 50 MCG/ACT Active 1 spray in Relief Nasally Once a each day nostril Protonix [facility] 99836180810 40 MG Active 1 TAB(S) ONCE A DAY ORALLY BD Pen Needle [facility] 24220347118 0 Active USE DAILY Short U/F Results No Known Results Summary Purpose eClinicalWorks Submission
--- OUTSIDE RECORDS SUMMARY | 2018-08-19 11:06 | XMS REPORT ---
:1940 Author Organization eClinicalWorks Care Team Providers Name Role Phone Valentín [facility] Provider Role Unavailable Allergies No Known [...] [facility] 64641429477 - Oct 11, Active as directed Lancets 2018 Results No Known Results Summary Purpose eClinicalS-cubism Submission
--- OUTSIDE RECORDS SUMMARY | 2018-08-19 11:07 | XMS REPORT ---
[...] Status Dosage System Date Date Anastrozole ND 98510162061 1 MG Orally Active 1 tablet Once a day Protonix ND 53452421855 40 MG Orally Active 1 tablet Once a day Flonase Allergy ND 53167501636 50 MCG/ACT Active 1 spray in Relief Nasally Once a each day nostril Citalopram ND 99680304295 20 MG Orally Active 1 tablet Hydrobromide Once a day Furosemide ND 42944807340 20 MG Orally Active 1 tablet Once a day Lipitor [facility] 38081076836 40 Active 1 TAB(S) ONCE A DAY ORALLY Coumadin [facility] 08321804529 2 MG Orally Active 1 tablet Once a day BD Pen Needle [facility] 47022341569 0 Active USE DAILY Short U/F Lyrica [facility] 25681982424 50 MG Orally Active 1 capsule Twice a day Lasix [facility] 00513409654 40 MG Orally Active 1 tablet Twice a day PRN for edema Meclizine HCl [facility] 51923369201 25 Active TAKE 1 TABLET BY MOUTH THREE TIMES DAILY FreeStyle Lite [facility] 87220423239 0 Active CHECK BLOOD Test SUGAR TWICE DAILY Tresiba [facility] 75505850085 200 UNIT/ML Active INJECT 70 FlexTouch UNITS UNDER THE SKIN EVERY DAY INCREASE 2 UNITS AFTER 3 DAYS IF BLOOD SUGAR IS HIGH Lipitor [facility] 68123062785 40 MG Orally Active 1 tablet Once a day Tresiba [facility] 29079086617 200 UNIT/ML Active not defined FlexTouch Subcutaneous Pantoprazole [facility] 00078876624 40 Active TAKE 1 Sodium TABLET BY MOUTH EVERY DAY HydrALAZINE HCl [facility] 08419525700 25 Orally Two Active 1 tablet times a day with food Ferrous Sulfate [facility] 14925774148 325 (65 Fe) MG Active 1 tablet Orally Once a day Topamax [facility] 47998443519 50 MG Orally Active 1 tablet Once a day FreeStyle [facility] 81705230546 - Oct 11, Active as directed Lancets 2018 Results No Known Results Summary Purpose eClinicalWorks Submission
--- OUTSIDE RECORDS SUMMARY | 2018-08-19 11:07 | XMS REPORT ---
[...] End Status Dosage System Date Date Tresiba [facility] 69242791099 200 UNIT/ML Active not defined FlexTouch Subcutaneous Coumadin [facility] 35467701571 2 MG Orally Active 1 tablet Once a day Ferrous Sulfate [facility] 12625501104 325 (65 Fe) MG Active 1 tablet Orally Once a day Protonix [facility] 37356607877 40 MG Orally Active 1 tablet Once a day BD Pen Needle [facility] 91626068789 0 Active USE DAILY Short U/F Lasix [facility] 12250796270 40 MG Orally Active 1 tablet Twice a day PRN for edema Lipitor [facility] 98011892125 40 MG Orally Active 1 tablet Once a day Lipitor [facility] 34395514635 40 Active 1 TAB(S) ONCE A DAY ORALLY HydrALAZINE HCl [facility] 15864157247 25 Orally Two Active 1 tablet times a day with food Pantoprazole [facility] 60822276169 40 Active TAKE 1 Sodium TABLET BY MOUTH EVERY DAY Januvia [facility] 63977484636 100 MG Orally April Active 1 tablet Once a day 2018 Flonase Allergy [facility] 88632500993 50 MCG/ACT Active 1 spray in Relief Nasally Once a each day nostril FreeStyle Lite [facility] 53827990191 0 Active CHECK BLOOD Test SUGAR TWICE DAILY Anastrozole ND 94300108514 1 MG Orally Active 1 tablet Once a day Lyrica [facility] 78979337732 75 MG Orally Active 1 capsule Twice a day FreeStyle [facility] 96436251036 - Oct 11, Active as directed Lancets 2018 Meclizine HCl [facility] 38412759247 25 Active TAKE 1 TABLET BY MOUTH THREE TIMES DAILY Citalopram [facility] 69711627686 20 MG Orally Active 1 tablet Hydrobromide Once a day Topamax [facility] 59438685023 50 MG Orally Active 1 tablet Once a day Tresiba [facility] 63744940053 200 UNIT/ML Active INJECT 70 FlexTouch UNITS UNDER THE SKIN EVERY DAY INCREASE 2 UNITS AFTER 3 DAYS IF BLOOD SUGAR IS HIGH Results No Known Results Summary Purpose eClinicalWorks Submission
--- OUTSIDE RECORDS SUMMARY | 2018-08-19 11:07 | XMS REPORT ---
[...] Date Date HydrALAZINE HCl [facility] 77036704009 25 Orally Two Active 1 tablet times a day with food Flonase Allergy [facility] 39971434170 50 MCG/ACT Active 1 spray in Relief Nasally Once a each day nostril Topamax [facility] 95453126542 50 MG Orally Active 1 tablet Once a day Tresiba [facility] 74514386675 200 UNIT/ML Active not defined FlexTouch Subcutaneous FreeStyle [facility] 23268615128 - Oct 11, Active as directed Lancets 2018 Anastrozole [facility] 01383487966 1 MG Orally Active 1 tablet Once a day BD Pen Needle [facility] 87574752182 0 Active USE DAILY Short U/F Lyrica [facility] 76111431793 50 MG Orally Active 1 capsule Twice a day Meclizine HCl [facility] 53308033360 25 Active TAKE 1 TABLET BY MOUTH THREE TIMES DAILY Coumadin [facility] 39639785770 2 MG Orally Active 1 tablet Once a day Tresiba [facility] 93865493302 200 UNIT/ML Active INJECT 70 FlexTouch UNITS UNDER THE SKIN EVERY DAY INCREASE 2 UNITS AFTER 3 DAYS IF BLOOD SUGAR IS HIGH FreeStyle Lite [facility] 40274379454 0 Active CHECK BLOOD Test SUGAR TWICE DAILY Protonix [facility] 03817726799 40 MG Orally Active 1 tablet Once a day Citalopram [facility] 01605034122 20 MG Orally Active 1 tablet Hydrobromide Once a day Lipitor [facility] 85627760990 40 Active 1 TAB(S) ONCE A DAY ORALLY Lipitor [facility] 15399638300 40 MG Orally Active 1 tablet Once a day Lasix [facility] 41967648929 40 MG Orally Active 1 tablet Twice a day PRN for edema Ferrous Sulfate [facility] 96841708888 325 (65 Fe) MG Active 1 tablet Orally Once a day Pantoprazole [facility] 92087763849 40 Active TAKE 1 Sodium TABLET BY MOUTH EVERY DAY Results No Known Results Summary Purpose eClinicalWorks Submission
--- OUTSIDE RECORDS SUMMARY | 2018-08-19 11:07 | XMS REPORT ---
[...] End Status Dosage System Date Date Pantoprazole [facility] 66358532771 40 Active TAKE 1 Sodium TABLET BY MOUTH EVERY DAY Lipitor [facility] 36375050697 40 MG Orally Active 1 tablet Once a day Citalopram [facility] 45896793202 20 Active TAKE 1 Hydrobromide TABLET BY MOUTH EVERY DAY Lasix [facility] 23499974321 40 MG Orally Feb 13, Active 1 tablet Twice a day PRN 2019 for edema Losartan [facility] 23299528788 100 MG Orally Inactive 1 tablet Potassium Once a day Flonase Allergy [facility] 29001544508 50 MCG/ACT Active 1 spray in Relief Nasally Once a each day nostril Citalopram [facility] 36376722978 20 MG Orally Active 1 tablet Hydrobromide Once a day Lipitor [facility] 71675591176 40 Active 1 TAB(S) ONCE A DAY ORALLY Anastrozole [facility] 94158346571 1 MG Orally Feb 08, Active 1 tablet Once a day 2019 FreeStyle Lite [facility] 19699294779 0 Active CHECK Test BLOOD SUGAR TWICE DAILY Protonix [facility] 88109136255 40 MG Orally Active 1 tablet Once a day BD Pen Needle [facility] 64370532810 0 Active USE DAILY Short U/F Tresiba [facility] 50375761455 200 UNIT/ML Active INJECT 70 FlexTouch UNITS UNDER THE SKIN EVERY DAY INCREASE 2 UNITS AFTER 3 DAYS IF BLOOD SUGAR IS HIGH Coumadin [facility] 15528619371 2 MG Orally Active 1 tablet Once a day Ferrous Sulfate [facility] 67363649152 325 (65 Fe) MG Active 1 tablet Orally Once a day Meclizine HCl [facility] 38247319143 25 Active TAKE 1 TABLET BY MOUTH THREE TIMES DAILY HydrALAZINE HCl [facility] 71422275133 25 Orally Two Active 1 tablet times a day with food Topamax [facility] 91824410535 50 MG Orally Active 1 tablet Once a day FreeStyle [facility] 37247774295 - Oct 11, Active as Lancets 2018 directed Lyrica [facility] 62323960748 50 MG Orally Active 1 capsule Twice a day Lyrica [facility] 42669298173 50 Active TAKE 1 CAPSULE BY MOUTH TWICE DAILY HydrALAZINE HCl [facility] 08303367035 25 Orally Two Active 1 tablet times a day with food Tresiba [facility] 95951443120 200 UNIT/ML Active not FlexTouch Subcutaneous defined Results No Known Results Summary Purpose eClinicalWorks Submission
--- OUTSIDE RECORDS SUMMARY | 2018-08-19 11:08 | XMS REPORT ---
[...] Start End Status Dosage System Date Date BD Insulin NDC 31883428638 27.5G X 5/8" 2 ML August 15, Active 1 syringe Syringe subcutaneously 2018 twice daily Results No Known Results Summary Purpose eClinicalWorks Submission
--- OUTSIDE RECORDS SUMMARY | 2018-08-19 11:08 | XMS REPORT ---
[...] End Status Dosage System Date Date Protonix [facility] 59048469112 40 MG Orally Active 1 tablet Once a day Citalopram [facility] 81902518382 20 MG Orally Active 1 tablet Hydrobromide Once a day Ferrous Sulfate [facility] 62713090729 325 (65 Fe) MG Active 1 tablet Orally Once a day Tresiba [facility] 14955526977 200 UNIT/ML Active INJECT 70 FlexTouch UNITS UNDER THE SKIN EVERY DAY INCREASE 2 UNITS AFTER 3 DAYS IF BLOOD SUGAR IS HIGH FreeStyle Lite [facility] 64480297365 0 Active CHECK Test BLOOD SUGAR TWICE DAILY Coumadin [facility] 33365372177 2 MG Orally Active 1 tablet Once a day Tresiba [facility] 00362723599 200 UNIT/ML Active not FlexTouch Subcutaneous defined HydrALAZINE HCl [facility] 20909638017 25 Orally Two Active 1 tablet times a day with food Lipitor [facility] 36751695815 40 Active 1 TAB(S) ONCE A DAY ORALLY Flonase Allergy [facility] 81857743210 50 MCG/ACT Active 1 spray in Relief Nasally Once a each day nostril Anastrozole [facility] 88294719894 1 MG Orally Active 1 tablet Once a day Aspirin 81 [facility] 26826109640 81 MG Orally Active 1 tablet Once a day Januvia [facility] 45648985425 100 MG Orally Active 1 tablet Once a day Pantoprazole [facility] 27836576980 40 Active TAKE 1 Sodium TABLET BY MOUTH EVERY DAY Lyrica [facility] 52280177636 75 MG Orally Active 1 capsule Twice a day Lasix [facility] 77372370491 20 MG Orally Active 1 tablet Twice a day PRN for edema Meclizine HCl [facility] 49661692552 25 Active TAKE 1 TABLET BY MOUTH THREE TIMES DAILY Lipitor [facility] [address]-98 40 MG Orally Active 1 tablet Once a day FreeStyle [facility] 45904676690 - Oct 11, Active as Lancets 2018 directed Topamax [facility] 97250342513 50 MG Orally Active 1 tablet Once a day BD Pen Needle [facility] 52193144471 0 Active USE DAILY Short U/F Results No Known Results Summary Purpose eClinicalWorks Submission
--- NOTE | 2018-08-19 11:34 | RAD REPORT ---
EXAM DESCRIPTION: RAD - Chest Single View - 08/19/2018 11:28 am CLINICAL HISTORY: Transient alteration of awareness, shortness of breath COMPARISON: August 06 TECHNIQUE: AP portable chest image was obtained 1125 hours . FINDINGS: Lung volumes are low. Patient has prominent interstitial lung disease as a baseline. This is similar or less prominent than prior imaging. Heart size is upper normal to slightly enlarged, sta ble from prior imaging. Vasculature in the upper lung garcia less prominent. Right-sided mediastinal fullness has not changed. No pneumothorax or large pleural effusion. No acute bony abnormality seen. No acute aortic findings suspected. IMPRESSION: Shallow inspiration chest film with chronic interstitial lung disease. Lung findings are less prominent than the August 06 study but could still reflect a mild interstitial edema or infiltrate. Right-sided mediastinal fullness unchanged.
[2018-08-19 11:39] LABS: Absolute Lymphocytes (CBC) 1.3 K/uL (0.7-4.9); Basophils % 1.1 % (0-1.3); Lymphocytes % 13.2 % (15.3-44.8); MPV 9.8 fL (7.6-11.3); RBC Red Blood Cell Count 3.83 M/uL (3.86-4.86)
[2018-08-19 11:47] LABS: Protime INR 1.15
[2018-08-19] MEDS ORDERED: NA CHLORIDE 0.9% 1,000 ML ONE (11:51)
[2018-08-19 11:54] LABS: ALT/SGPT 15 U/L (12-78); AST/SGOT 14 U/L (15-37); Albumin 3.6 g/dL (3.4-5.0); Alkaline Phosphatase 175 U/L (45-117); BUN Blood Urea Nitrogen 53 mg/dL (7-18); Bicarbonate 28 mmol/L (21-32); Bilirubin Direct 0.2 mg/dL (0-0.2); Bilirubin Total 0.6 mg/dL (0.2-1.0); Magnesium 2.6 mg/dL (1.8-2.4); NT PRO-BNP 2828 pg/mL (<450); Potassium 4.8 mmol/L (3.5-5.1); Protein, Total 8.1 g/dL (6.4-8.2); Sodium Level 128 mmol/L (136-145); Troponin (Emerg Dept Use Only) < 0.02 ng/mL (0.0-0.045)
[2018-08-19 11:56] LABS: Glucose Level 795 mg/dL (74-106)
[2018-08-19 12:10] LABS: Arterial Blood Carboxyhemoglob 1.8 % (0-1.5); Blood Gas Oxyhemoglobin 88.4 % (94-97); Blood O2 Saturation 90.9 % (92-98.5)
--- NOTE | 2018-08-19 12:12 | EDPHYS ---
Physician Documentation [facility] Name: Sarah Garcia Age: 77 yrs Sex: Female : 1940 Arrival Date: 08/19/2018 Time: 11:05 Bed 4 Private MD: ED Physician Pankaj Hung HPI: 08/19 11:41 This 77 yrs old Female presents to ER via EMS with complaints of High Blood jr8 Sugar. 11:41 The patient or guardian reports altered mental status, hyperglycemia. Onset: The jr8 symptoms/episode began/occurred acutely, today. Associated signs and symptoms: Pertinent positives: None. Current symptoms: In the emergency department the patient's symptoms are unchanged from the initial presentation. It is unknown whether or not the patient has had similar symptoms in the past. The patient has not recently seen a physician. [facility] called EMS for patients elevated blood glucose level and increase in confusion this AM. EMS read it as HI on monitor. Patient normally alert to person, place, time, event. Today alert to person, place, but not time or event. Currently without any pain or other complaint . Historical: - Allergies: 11:11 QUINOLONES; sg - PMHx: 11:11 Atrial Fib; sg 11:16 Cancer, Breast; Diabetes - IDDM; DVT; GERD; High Cholesterol; Hyperlipidemia; sg Hypertension; Myocardial infarction; neuropathy; stage 4 kidney disease; - PSHx: 11:16 Mastectomy, Right; sg - Immunization history:: Adult Immunizations not up to date. - Social history:: Smoking status: Patient/guardian denies using tobacco. - Ebola Screening: : Patient negative for fever greater than or equal to 101.5 degrees Fahrenheit, and additional compatible Ebola Virus Disease symptoms Patient denies exposure to infectious person Patient denies travel to an Ebola-affected area in the 21 days before illness onset No symptoms or risks identified at this time. ROS: 11:41 Eyes: Negative for injury, pain, redness, and discharge, ENT: Negative for injury, jr8 pain, and discharge, Neck: Negative for injury, pain, and swelling, Cardiovascular: Negative for chest pain, palpitations, and edema, Respiratory: Negative for shortness of breath, cough, wheezing, and pleuritic chest pain, Abdomen/GI: Negative for abdominal pain, nausea, vomiting, diarrhea, and constipation, Back: Negative for injury and pain, MS/Extremity: Negative for injury and deformity, Skin: Negative for injury, rash, and discoloration. 11:41 Neuro: Positive for altered mental status. Exam: 11:41 Eyes: Pupils equal round and reactive to light, extra-ocular motions intact. Lids and jr8 lashes normal. Conjunctiva and sclera are non-icteric and not injected. Cornea within normal limits. Periorbital areas with no swelling, redness, or edema. ENT: Nares patent. No nasal discharge, no septal abnormalities noted. Tympanic membranes are normal and external auditory canals are clear. Oropharynx with no redness, swelling, or masses, exudates, or evidence of obstruction, uvula midline. Mucous membranes moist. Neck: Trachea midline, no thyromegaly or masses palpated, and no cervical lymphadenopathy. Supple, full range of motion without nuchal rigidity, or vertebral point tenderness. No Meningismus. Cardiovascular: Regular rate and rhythm with a normal S1 and S2. No gallops, murmurs, or rubs. Normal PMI, no JVD. No pulse deficits. Respiratory: Lungs have equal breath sounds bilaterally, clear to auscultation and percussion. No rales, rhonchi or wheezes noted. No increased work of breathing, no retractions or nasal flaring. Abdomen/GI: Soft, non-tender, with normal bowel sounds. No distension or tympany. No guarding or rebound. No evidence of tenderness throughout. Back: No spinal tenderness. No costovertebral tenderness. Full range of motion. Skin: Warm, dry with normal turgor. Normal color with no rashes, no lesions, and no evidence of cellulitis. MS/ Extremity: Pulses equal, no cyanosis. Neurovascular intact. Full, normal range of motion. 11:41 Neuro: Orientation: to person, place, Mentation: able to follow commands, slow to respond, confused, Memory: immediate memory is intact, remote memory is intact. recent memory is impaired, Cranial nerves: CN I not tested, CN II- XII are normal as tested, visual garcia are intact. extraocular movements are intact, Facial palsy and sensory deficits are absent. Speech is clear and appropriate. Tongue strength is normal, Cerebellar function: normal finger to nose testing, heel to roger testing is normal, Motor: moves all fours, Sensation: no obvious gross deficits, seizure activity, is not displayed by the patient, Abnormal movements: there are no abnormal movements. Vital Signs: 11:09 BP 145 / 47; Pulse 76; Resp 17; Temp 97.6; Pulse Ox 92% on R/A; sg 11:22 Pulse Ox 98% on 2 lpm NC; jb1 12:33 Weight 77 kg; Height 5 ft. 2 in. (157.48 cm); sv 13:30 BP 92 / 40; Pulse 66; Resp 17; Pulse Ox 99% on 2 lpm NC; sg 14:23 BP 72 / 42; Pulse 67; Resp 18; Pulse Ox 100% on 2 lpm NC; sg 14:31 BP 96 / 47; Pulse 68 MON; Resp 18; Pulse Ox 98% on 2 lpm NC; sg 15:00 BP 78 / 50; Pulse 66; Resp 17; Pulse Ox 99% on 2 lpm NC; sg 15:22 BP 107 / 61; Pulse 72; Resp 18; Pulse Ox 98% on 2 lpm NC; sg 16:09 BP 113 / 51; Pulse 66; Resp 17; Temp 98.3; Pulse Ox 99% on 2 lpm NC; sg 12:33 Body Mass Index 31.05 (77.00 kg, 157.48 cm) sv Salomon Coma Score: 11:41 Eye Response: spontaneous(4). Verbal Response: confused(4). Motor Response: obeys jr8 commands(6). Total: 14. MDM: 11:10 Patient medically screened. jr8 12:09 Data reviewed: vital signs, nurses notes, lab test result(s), EKG, radiologic studies, jr8 plain films. Data interpreted: Pulse oximetry: on room air is 98 %. Interpretation: normal. Counseling: I had a detailed discussion with the patient and/or guardian regarding: the historical points, exam findings, and any diagnostic results supporting the discharge/admit diagnosis, lab results, radiology results, the need for further work-up and treatment in the hospital. Physician consultation: Lila Martinez MD was called at 12:10, was contacted at 12:10, regarding admission, to the ICU, consult, patient's condition, and will see patient in ED. 08/19 11:11 Order name: Basic Metabolic Panel; Complete Time: 12:04 jr8 08/19 11:11 Order name: CBC with Diff; Complete Time: 11:41 08/19 11:11 Order name: LFT's; Complete Time: 12:04 [facility] 08/19 11:11 Order name: Magnesium; Complete Time: 12:04 [facility] 08/19 11:11 Order name: NT PRO-BNP; Complete Time: 12:04 08/19 11:11 Order name: PT-INR; Complete Time: 11:54 [facility] 08/19 11:11 Order name: Troponin (emerg Dept Use Only); Complete Time: 12:04 08/19 11:11 Order name: Urine Microscopic Only; Complete Time: 11:57 08/19 11:11 Order name: Ketone, Serum; Complete Time: 12:04 [facility] 08/19 11:14 Order name: ABG; Complete Time: 12:18 [facility] 08/19 11:16 Order name: Glucose, Ancillary Testing; Complete Time: 11:17 EDMS 08/19 11:17 Order name: Glucose, Ancillary Testing EDMS 08/19 12:04 Order name: Osmolality, Serum; Complete Time: 13:12 [facility] 08/19 13:43 Order name: Glucose sg 08/19 11:11 Order name: XRAY Chest (1 view); Complete Time: 11:40 [facility] 08/19 11:11 Order name: EKG; Complete Time: 11:13 [facility] 08/19 11:11 Order name: Cardiac monitoring; Complete Time: 11:18 [facility] 08/19 11:11 Order name: EKG - Nurse/Tech; Complete Time: 11:18 [facility] 08/19 11:11 Order name: IV Saline Lock; Complete Time: 11:18 [facility] 08/19 11:11 Order name: Labs collected and sent; Complete Time: 11:18 [facility] 08/19 11:11 Order name: O2 Per Protocol; Complete Time: 11:19 [facility] 08/19 14:21 Order name: Glucose Level; Complete Time: 14:36 EDMS 08/19 14:47 Order name: Glucose, Ancillary Testing; Complete Time: 14:48 EDMS 08/19 14:47 Order name: Glucose, Ancillary Testing; Complete Time: 14:48 EDMS 08/19 15:49 Order name: Urine Dipstick--Ancillary (enter results) bd 08/19 16:12 Order name: Urine Dipstick-Ancillary; Complete Time: 16:13 EDMS 08/19 11:11 Order name: O2 Sat Monitoring; Complete Time: 11:19 jr8 08/19 11:11 Order name: Urine Dipstick-Ancillary (obtain specimen); Complete Time: 15:44 jr8 Administered Medications: 12:18 Drug: NS 0.9% 1000 ml Route: IV; Rate: 1000 ml; Site: left wrist; sg 13:15 Follow up: Rate change 75 ml/hr; IV Status: Completed infusion; IV Intake: 500ml sg 12:26 Drug: NS 0.9% 1000 ml Route: IV; Rate: 75 ml/hr; Site: left wrist; sg 12:45 Drug: Insulin Drip - (Insulin Regular Human 100 units, NS 0.9% 100 ml) {Co-Signature: sg sv (Isa Silva RN).} Route: IV; Rate: calculated rate; Site: left wrist; 15:12 Drug: D5-1/2 NS 1000 ml Route: IV; Rate: 75 ml/hr; Site: left wrist; sg Point of Care Testing: Blood Glucose: 11:05 Blood Glucose: High (>450 mg/dL); sv 13:44 Blood Glucose: High (>450 mg/dL); jb1 11:05 >500, Rustam ELIZABETH informed sv Ranges: Critical Glucose Levels:Adult <50 mg/dl or >400 mg/dl <40 mg/dl or >180 mg/dl Disposition: 16:39 Co-signature as Attending Physician, Pankaj Hung MD I agree with the assessment and kdr plan of care. Disposition: 08/19/18 12:11 Hospitalization ordered by Lila Martinez for Inpatient Admission. Preliminary diagnosis are Type 2 diabetes mellitus with hyperosmolarity without nonketotic hyperglycemic-hyperosmolar coma ([facility]), Acute kidney failure. - Bed requested for Intensive Care Unit. - Status is Inpatient Admission. ss - Condition is Fair. - Problem is new. - Symptoms are unchanged. UTI on Admission? No Signatures: Dispatcher [employer] [facility] Stacy Thomas Steven, Pankaj Howell RN, MD MD kdr Smirch, Shelby, RN RN ss Roszak, Josh, PA PA jr8 Isa Silva RN sv Corrections: (The following items were deleted from the chart) 15:20 12:11 Hospitalization Ordered by Lila Martinez MD for Inpatient Admission. Preliminary bd diagnosis is Type 2 diabetes mellitus with hyperosmolarity without nonketotic hyperglycemic-hyperosmolar coma ([facility]); Acute kidney failure. Bed requested for Intensive Care Unit. Status is Inpatient Admission. Condition is Fair. Problem is new. Symptoms are unchanged. UTI on Admission? No. jr8 16:34 15:20 08/19/2018 12:11 Hospitalization Ordered by Lila Martinez MD for Inpatient ss Admission. Preliminary diagnosis is Type 2 diabetes mellitus with hyperosmolarity without nonketotic hyperglycemic-hyperosmolar coma ([facility]); Acute kidney failure. Bed requested for Intensive Care Unit. Status is Inpatient Admission. Condition is Fair. Problem is new. Symptoms are unchanged. UTI on Admission? No. bd
--- NOTE | 2018-08-19 12:12 | ER ---
Nurse's Notes [facility] Name: Sarah Garcia Age: 77 yrs Sex: Female : 1940 Arrival Date: 08/19/2018 Time: 11:05 Bed 4 Private MD: Diagnosis: Type 2 diabetes mellitus with hyperosmolarity without nonketotic hyperglycemic-hyperosmolar coma ([facility]);Acute kidney failure Presentation: 08/19 11:06 Presenting complaint: EMS states: pt family and home health report that the glucometer sg readings reported "Hi", pt family also reported the patient to be a little more confused than normal for her, reports that happens when her glucose levels are too high. Transition of care: patient was not received from another setting of care. Onset of symptoms was August 19, 2018. Risk Assessment: Do you want to hurt yourself or someone else? Patient reports no desire to harm self or others. Initial Sepsis Screen: Does the patient meet any 2 criteria? No. Patient's initial sepsis screen is negative. Does the patient have a suspected source of infection? No. Patient's initial sepsis screen is negative. Care prior to arrival: Glucose check: 500 "Hi". 11:06 Method Of Arrival: EMS: [facility] sg 11:06 Acuity: CHRISS 3 sg Historical: - Allergies: 11:11 QUINOLONES; sg - PMHx: 11:11 Atrial Fib; sg 11:16 Cancer, Breast; Diabetes - IDDM; DVT; GERD; High Cholesterol; Hyperlipidemia; sg Hypertension; Myocardial infarction; neuropathy; stage 4 kidney disease; - PSHx: 11:16 Mastectomy, Right; sg - Immunization history:: Adult Immunizations not up to date. - Social history:: Smoking status: Patient/guardian denies using tobacco. - Ebola Screening: : Patient negative for fever greater than or equal to 101.5 degrees Fahrenheit, and additional compatible Ebola Virus Disease symptoms Patient denies exposure to infectious person Patient denies travel to an Ebola-affected area in the 21 days before illness onset No symptoms or risks identified at this time. Screenin:17 Abuse screen: Denies threats or abuse. Denies injuries from another. Nutritional sv screening: No deficits noted. Tuberculosis screening: No symptoms or risk factors identified. Fall Risk None identified. Assessment: 11:30 General: Appears in no apparent distress. well groomed, well developed, well nourished, sg Behavior is calm, cooperative, appropriate for age. Pain: Denies pain. Neuro: Level of Consciousness is awake, alert, obeys commands, Oriented to person, place, Shift Lab Technician are equal bilaterally Moves all extremities. Full function Speech is normal, Facial symmetry appears normal. Cardiovascular: Capillary refill is brisk in bilateral fingers Patient's skin is warm and dry. Chest pain is denied. Respiratory: Airway is patent Respiratory effort is even, unlabored, Respiratory pattern is regular, symmetrical. GI: Abdomen is round non-distended, obese, Bowel sounds present X 4 quads. Reports tolerance of fluids, tolerance of food. : No signs and/or symptoms were reported regarding the genitourinary system. EENT: No signs and/or symptoms were reported regarding the EENT system. Derm: Skin is pink, warm \\T\\ dry. Rash noted that is red, on left antecubital area. Musculoskeletal: Circulation, motion, and sensation intact. Range of motion: intact in all extremities. 13:52 Reassessment: Patient appears in no apparent distress at this time. Patient and/or sg family updated on plan of care and expected duration. Pain level reassessed. Patient is alert, oriented x 3, equal unlabored respirations, skin warm/dry/pink. Patient states feeling better. 14:25 Reassessment: VS reported to Rustam ELIZABETH, orders received to administer IV NS 500 mL sg bolus, pt aa\\T\\ox2 at this time, denies pain but reports leg cramping, will continue to monitor. 14:27 Reassessment: pt o2 saturation 89 percent on room air, pt placed to NC at 2 lpm, o2 sg saturation improved to 98 %. 14:48 Reassessment: FSBG reported to Cali ELIZABETH, pt to be admitted to , sg notified. Vital Signs: 11:09 BP 145 / 47; Pulse 76; Resp 17; Temp 97.6; Pulse Ox 92% on R/A; sg 11:22 Pulse Ox 98% on 2 lpm NC; jb1 12:33 Weight 77 kg; Height 5 ft. 2 in. (157.48 cm); sv 13:30 BP 92 / 40; Pulse 66; Resp 17; Pulse Ox 99% on 2 lpm NC; sg 14:23 BP 72 / 42; Pulse 67; Resp 18; Pulse Ox 100% on 2 lpm NC; sg 14:31 BP 96 / 47; Pulse 68 MON; Resp 18; Pulse Ox 98% on 2 lpm NC; sg 15:00 BP 78 / 50; Pulse 66; Resp 17; Pulse Ox 99% on 2 lpm NC; sg 15:22 BP 107 / 61; Pulse 72; Resp 18; Pulse Ox 98% on 2 lpm NC; sg 16:09 BP 113 / 51; Pulse 66; Resp 17; Temp 98.3; Pulse Ox 99% on 2 lpm NC; sg 12:33 Body Mass Index 31.05 (77.00 kg, 157.48 cm) sv Salomon Coma Score: 11:41 Eye Response: spontaneous(4). Verbal Response: confused(4). Motor Response: obeys jr8 commands(6). Total: 14. ED Course: 11:05 Patient arrived in ED. sg 11:06 Pankaj Hung MD is Attending Physician. kdr 11:09 Triage completed. sg 11:10 Rustam Jc PA is PHCP. jr8 11:10 Initial lab(s) drawn, by nc, sent to lab. Inserted saline lock: 22 gauge in left sv forearm, using aseptic technique. ,using aseptic technique. diffusics Blood collected. Flushed left forearm with 5 ml normal saline. 11:10 Patient has correct armband on for positive identification. Placed in gown. Bed in low sv position. Call light in reach. Side rails up X2. coping machine assembler on. Pulse ox on. NIBP on. Door closed. Head of bed elevated. 11:12 Tutu Dozier, RN is Primary Nurse. sg 11:17 Arm band placed on. sg 11:18 EKG done, by electromedical equipment technician. reviewed by Rustam ELIZABETH. at1 11:28 XRAY Chest (1 view) In Process Unspecified. EDMS 12:10 Lila Martinez MD is Hospitalizing Provider. jr8 15:50 Straight cath inserted, using sterile technique, 16 Fr. Specimen obtained. Returned sv clear yellow urine. Patient tolerated well. Administered Medications: 12:18 Drug: NS 0.9% 1000 ml Route: IV; Rate: 1000 ml; Site: left wrist; sg 13:15 Follow up: Rate change 75 ml/hr; IV Status: Completed infusion; IV Intake: 500ml sg 12:26 Drug: NS 0.9% 1000 ml Route: IV; Rate: 75 ml/hr; Site: left wrist; sg 12:45 Drug: Insulin Drip - (Insulin Regular Human 100 units, NS 0.9% 100 ml) {Co-Signature: [facility] (Isa Silva RN).} Route: IV; Rate: calculated rate; Site: left wrist; 15:12 Drug: D5-1/2 NS 1000 ml Route: IV; Rate: 75 ml/hr; Site: left wrist; sg Point of Care Testing: Blood Glucose: 11:05 Blood Glucose: High (>450 mg/dL); sv 13:44 Blood Glucose: High (>450 mg/dL); jb1 11:05 >500, Rustam ELIZABETH informed sv Ranges: Intake: 13:15 IV: 500ml; Total: 500ml. sg Output: 15:50 Urine: 600ml (Straight Cath); Total: 600ml. sv Outcome: 12:11 Decision to Hospitalize by Provider. jrRizwan 16:30 Admitted to Tele accompanied by tech, family with patient, via stretcher, via sg wheelchair, room 3, on monitor, with chart, Report called to bedside report given to MARANDA Howell 16:30 Condition: stable 16:30 Discharge instructions given to patient, Instructed on discharge instructions, follow up and referral plans. medication usage, Demonstrated understanding of instructions, follow-up care. 16:34 Patient left the ED. ss Signatures: Dispatcher [employer] EDMS Bart Carrillo Stephanie, RN RN Tutu Dozier RN RN Pankaj Hung MD MD [facility] Aura Seay RN RN Rustam Jc PA PA jr8 Rita Joaquin, pier master EKG Tat1 Isa Silva RN Corrections: (The following items were deleted from the chart) 14:27 14:23 BP 72 / 42; Pulse 67bpm; Resp 18bpm; Pulse Ox 100% RA; sg sg 14:27 13:30 BP 92 / 40; Pulse 66bpm; Resp 17bpm; Pulse Ox 99% RA; sg sg
[2018-08-19] MEDS ORDERED: INSULIN -REGULAR HUMAN 100 UNIT in NA CHLORIDE 0.9% 100 ML IV SCH ×3 (13:00→16:00)
[2018-08-19] MEDS ORDERED: ONDANSETRON 4 MG/2 ML VIAL IV PRN (15:23)
[2018-08-19] MEDS ORDERED: NA CHLORIDE 0.9% 1,000 ML IV ONE (15:23)
[2018-08-19] MEDS ORDERED: NACHLORIDE 0.45% 1,000 ML IV SCH (15:23)
--- NOTE | 2018-08-19 15:42 | EKG ---
Test Date: 2018-08-19 Test Time: 11:10:03 Patient Financial Services Manager: JOSUE MEASUREMENT RESULTS: Intervals: Rate: 77 SD: 162 QRSD: 70 QT: 408 QTc: 461 Whitmore: P: 38 SD: 162 QRS: -13 T: 74 INTERPRETIVE STATEMENTS: Normal sinus rhythm Left ventricular hypertrophy with repolarization abnormality Inferior infarct, age undetermined Abnormal ECG Compared to ECG 08/06/2018 02:35:00 Left ventricular hypertrophy now present Myocardial infarct finding still present Electronically Signed On 08-19-18 15:42:04 CDT by Jefe Ewing
[2018-08-19 16:11] LABS: Urine Blood NEGATIVE (NEG); Urine Glucose 2+ (NEG); Urine Protein 1+ (NEG)
[2018-08-19 16:26] LABS: Urine Bacteria <20 /HPF (<20); Urine Culture Reflex Order REFLEXED; Urine RBC NONE SEEN /HPF (NONE SEEN)
[2018-08-19 16:33] LABS: Potassium 3.8 mmol/L (3.5-5.1)
[2018-08-19 16:51] VITALS: BMI 33.0
[2018-08-19] MEDS: D5 0.45 NS 1,000 ML IV SCH (17:00)
[2018-08-19] MEDS: WARFARIN SODIUM 1 MG TAB PO SCH (17:00)
[2018-08-19] MEDS ORDERED: TRAMADOL HCL 50 MG TAB PO PRN (17:22)
[2018-08-19] MEDS: NACHLORIDE 0.45% 1,000 ML IV SCH (19:00)
[2018-08-19 19:56] LABS: Potassium 3.5 mmol/L (3.5-5.1)
[2018-08-19] MEDS: ATORVASTATIN 40 MG TAB PO SCH (21:00)
[2018-08-19] MEDS: PREGABALIN 75 MG CAP PO SCH (21:00)
[2018-08-19 23:54] LABS: Potassium 3.6 mmol/L (3.5-5.1)
--- NOTE | 2018-08-20 01:18 | HP ---
Date of Admission: 08/19/2018 Code Status: Full. Primary Care Physician: Dr. Laura. Chief Complaint: Uncontrolled blood sugar, nausea, vomiting. History Of Present Illness: The patient is a 77-year-old female, who has had multiple admissions to the hospital recently due to uncontrolled blood sugars, last discharged on 07/23/2018, who has a past medical history of atrial fibrillation, on chronic anticoagulation; diabetes mellitus type 2, insuli n requiring with poor glycemic control; hypertension; GERD; chronic kidney disease; peripheral vascul ar disease; gout; depression; coronary artery disease; hyperlipidemia; comes in with nausea, vomiting , generalized weakness as well as diarrhea for the past day. The patient's symptoms are constant, mo derate, progressively worsening. She states that she is taking her medications as she is supposed to including her insulin; however, she has had difficulty with her medications in the past. Her family members are apparently her caregivers. Patient was brought into the ER due to worsening condition. In the ER, her workup revealed a glucose of 795. Her serum osmolality was high. She did not have a n anion gap. ABG did not show any acidosis. The patient was thought to be in hyperosmolar hyperglyc emic state. Her acetone level was small. The patient was then started on IV insulin, given 1 L of n ormal saline bolus in the ER, and referred for admission. When seen in the ER, she was awake, alert, oriented x3 and somewhat confused and lethargic. Past Medical History: Atrial fibrillation, on anticoagulation; hypertension; gastroesophageal reflux disease; chronic kidney disease stage 3; peripheral vascular disease; gout; depression with anxiety; diabetes mellitus type 2, insulin dependent; coronary artery disease; carotid artery disease; hyperl ipidemia. Surgical History: Appendectomy, tubal ligation, hysterectomy, heart catheterization, right breast jazzmine mpectomy with lymph node removal. Allergies: TO QUINOLONES, CAUSE ANAPHYLAXIS. Home Medications: List reviewed. Social History: The patient denies any tobacco use, alcohol use, or illicit drug use. Lives at home with her children. Family History: Brother has diabetes. Mother has heart disease, hypertension, and diabetes as well as arthritis. Review of Systems: Ten-point system reviewed, negative except as per HPI. Physical Examination: Vital Signs: Blood pressure 145/47, pulse 76, respirations 17, temperature 97.6, O2 of 98% on room a ir. General: Awake, alert, oriented x2; somewhat mildly confused, elderly female, ill-appearing. HEENT: Normocephalic, atraumatic. PERRLA. EOMI. Dry mucous membranes. Oropharynx is clear. Conj unctivae are anicteric. Neck: Supple. No JVD. Trachea midline. CV: S1, S2. No murmurs. Respiratory: Moving air well bilaterally. No wheezing or stridor. No use of accessory muscles. Gastrointestinal: Abdomen is soft, nontender, nondistended. Positive bowel sounds. No guarding or rigidity. Extremities: No clubbing, cyanosis, or edema. No calf tenderness. Neuro: Cranial nerves 2 through 12 intact grossly. No focal neurological deficits. Speech is zehra l. Skin: No rashes. Normal skin turgor. Psych: Mood is somewhat anxious. Affect is congruent with mood. Insight and judgment are fair. Laboratory Data: Sodium 128, potassium 4.8, chloride 93, CO2 of 28, BUN 53, creatinine 2.62, glucose 795. Serum osmolality 335, calcium 9.2, magnesium 2.6. Troponin less than 0.02. BNP 2828. WBC 9. 7, H and H of 11.6 and 37, platelets 347. INR 1.15. ABG; pH 7.37, pCO2 of 48.6, pO2 of 66.7, bicarb 27.7. Acetone level is small. Chest x-ray shows shallow inspiration chest film with chronic inters titial lung disease, lung findings less prominent in the August 06 study, could reflect a mild interst itial edema or infiltrate. Right-sided mediastinal fullness unchanged. Assessment And Plan: A 77-year-old female with: 1.Hyperosmolar hyperglycemic state secondary to her uncontrolled diabetes. We will start on IV insu ganga, placed in the ICU. We will monitor blood glucose levels closely. We will repeat another 1 L of normal saline bolus and then start on maintenance fluids with half NS at 100 mL/h. We will try to a void over hydrating due to edema seen on chest x-ray. 2.Acute metabolic encephalopathy secondary to above, improving. The patient's mental status is star ting to clear up following treatment with insulin and IV fluid resuscitation. She was placed on fall precautions. 3.Atrial fibrillation, chronic, on anticoagulation. We will continue with Coumadin, check INR level , and continue with rate control. 4.Acute on chronic kidney injury stage 3. Creatinine is above baseline. Consult Nephrology if not improving. Continue with IV fluids. Avoid NSAIDs. Continue to monitor levels. 5.Hypermagnesemia. Continue to monitor. 6.Hypoxemia. The patient was started on supplemental oxygen likely secondary to edema on x-ray. 7.Pulmonary edema. 8.Normocytic normochromic anemia, likely anemia of chronic disease. 9.Essential hypertension, stable. We will resume home medications as appropriate. 10.Diabetes mellitus type 2, long-term use of insulin with hyperglycemic hyperosmolar syndrome. Cur rently on IV insulin. We will monitor blood glucose levels. 11.Non-intractable nausea and vomiting. 12.Obesity. 13.Deep venous thrombosis prophylaxis. The patient is already on anticoagulation. Plan: Admit to ICU, place as inpatient. Length of stay greater than 2 midnights. Patient's INR is subtherapeutic. We will need to increase Coumadin dose. For tonight, recheck INR to verify the ignacio ent is still taking Coumadin. Overall, the patient has a poor prognosis due to her recurrent admissi ons, noncompliance. /SERGO Voice ID: [id number]
[2018-08-20 05:07] LABS: Absolute Lymphocytes (CBC) 2.4 K/uL (0.7-4.9); Basophils % 0.9 % (0-1.3); Hematocrit 32.6 % (36.0-45.0); Lymphocytes % 25.4 % (15.3-44.8); MPV 9.5 fL (7.6-11.3); RBC Red Blood Cell Count 3.49 M/uL (3.86-4.86)
[2018-08-20 05:17] LABS: Albumin 2.8 g/dL (3.4-5.0); Bilirubin Total 0.4 mg/dL (0.2-1.0); Magnesium 2.7 mg/dL (1.8-2.4); Phosphorus 4.4 mg/dL (2.5-4.9); Potassium 3.5 mmol/L (3.5-5.1); Protein, Total 6.3 g/dL (6.4-8.2)
--- NOTE | 2018-08-20 05:29 | P.PN ---
Date of Service: 08/19/18 Called to see pt in ICU because of patient's mentation. Patient is lethargic and difficult to arouse. Were going to schedule a CT of the head as well as an EEG. However, patient started coming around. Will monitor her neurologic status closely. If her mentation is not improved we may need to proceed with CT of the head without contrast. EEG may also be needed. Will monitor her closely.
[2018-08-20] MEDS: NACHLORIDE 0.45% 1,000 ML IV SCH ×2 (07:05→21:40)
[2018-08-20] MEDS: D5 0.45 NS 1,000 ML IV SCH (08:18)
[2018-08-20] MEDS: Insulin Degludec [Tresiba Flextouch U-200] SQ SCH (09:00)
[2018-08-20] MEDS ORDERED: D50W 25 GM/50 ML SYRINGE IV PRN (09:59)
[2018-08-20] MEDS ORDERED: GLUCAGON 1 MG/VIAL IM PRN (09:59)
[2018-08-20] MEDS: PREGABALIN 75 MG CAP PO SCH ×2 (10:38→20:55)
[2018-08-20] MEDS: FUROSEMIDE 40 MG TABLET PO SCH (10:38)
[2018-08-20] MEDS: PANTOPRAZOLE 40MG TABLET PO SCH (10:38)
[2018-08-20] MEDS: ASPIRIN EC 81 MG TAB PO SCH (10:38)
[2018-08-20] MEDS: CITALOPRAM 10 MG TABLET PO SCH (10:39)
[2018-08-20] MEDS: FERROUS SULFATE 325 MG TAB PO SCH (10:40)
[2018-08-20] MEDS: ANASTROZOLE 1 MG TAB PO SCH (10:40)
[2018-08-20] MEDS: INSULIN -REGULAR HUMAN 50 UNIT/0.5 ML ML SQ SCH ×3 (11:30→20:56)
--- NOTE | 2018-08-20 15:44 | P.PN ---
Subjective Date of Service: 08/20/18 Chief Complaint: Altered mentation, elevated blood sugars Subjective: Improving Patient seen and examined at bedside. No family at bedside. Chart reviewed and case discussed with nursing staff. Patient now alert oriented x4, in no acute distress. No concerns complaints this morning. Review of Systems 10-point ROS is otherwise unremarkable Physical Examination - Vital Signs Temperature: 97 F Blood Pressure: 88/51 Pulse: 73 Respirations: 17 Pulse Ox (%): 98 - Physical Exam General: Alert, In no apparent distress, Oriented x3 HEENT: Atraumatic, PERRLA, EOMI Neck: Supple, JVD not distended Respiratory: Clear to auscultation bilaterally, Normal air movement Cardiovascular: Regular rate/rhythm, Normal S1 S2 Gastrointestinal: Normal bowel sounds, No tenderness Musculoskeletal: No tenderness Integumentary: No rashes Neurological: Normal speech, Normal tone, Normal affect Assessment And Plan - Plan A 77-year-old female with: Hyperosmolar hyperglycemic state secondary to her uncontrolled diabetes. - blood sugars now improved on IV insulin. A1c elevated at 8.4 - start Lantus subcutaneous. Turn off IV insulin after 1 hr. Continue to monitor blood sugars. - will start diabetic diet. Discontinue IV fluids once patient tolerating oral diet. Acute metabolic encephalopathy secondary to above, resolved. - the patient is now alert oriented x4. Atrial fibrillation, chronic, on anticoagulation. INR now normal - currently in normal sinus rhythm. Continue anticoagulation and rate control medications. Acute on chronic kidney injury stage 3. - creatinine continues to be elevated. May need to get nephrology consulted if no improvement noted in her creatinine levels. - Avoid NSAIDs. Continue to monitor levels. Hypermagnesemia. Continue to monitor. Hypoxemia. Improving - continue supplemental oxygen. Pulmonary edema. Improving - repeat chest x-ray tomorrow Normocytic normochromic anemia, likely anemia of chronic disease. Essential hypertension, stable. - We will continue home medications as appropriate. Diabetes mellitus type 2, long-term use of insulin with hyperglycemic hyperosmolar syndrome. - management as above. We will monitor blood glucose levels. Non-intractable nausea and vomiting. Obesity. Deep venous thrombosis prophylaxis. The patient is already on anticoagulation. Plan: Transfer to the floor as patient hemodynamically stable, blood sugars improved even off of IV insulin. Transition to subcut. insulin. Overall, the patient has a poor prognosis due to her recurrent admissions, noncompliance.
[2018-08-20] MEDS: WARFARIN SODIUM 2 MG TAB PO SCH (16:56)
[2018-08-20] MEDS: ATORVASTATIN 40 MG TAB PO SCH (20:55)
[2018-08-21 04:55] LABS: Protime INR 1.16
[2018-08-21 05:04] LABS: Potassium 4.1 mmol/L (3.5-5.1)
[2018-08-21] MEDS: INSULIN -REGULAR HUMAN 50 UNIT/0.5 ML ML SQ SCH ×4 (08:13→20:11)
[2018-08-21] MEDS: PREGABALIN 75 MG CAP PO SCH ×2 (08:58→20:11)
[2018-08-21] MEDS: ASPIRIN EC 81 MG TAB PO SCH (08:59)
[2018-08-21] MEDS: FUROSEMIDE 40 MG TABLET PO SCH (08:59)
[2018-08-21] MEDS: CITALOPRAM 10 MG TABLET PO SCH (08:59)
[2018-08-21] MEDS: PANTOPRAZOLE 40MG TABLET PO SCH (08:59)
[2018-08-21] MEDS: Insulin Degludec [Tresiba Flextouch U-200] SQ SCH (09:00)
[2018-08-21] MEDS: FERROUS SULFATE 325 MG TAB PO SCH (09:00)
[2018-08-21] MEDS ORDERED: INSULIN GLARGINE 100 UNITS/ML SQ SCH (10:00)
[2018-08-21] MEDS: NACHLORIDE 0.45% 1,000 ML IV SCH (11:00)
[2018-08-21] MEDS: INSULIN GLARGINE 100 UNITS/ML SQ SCH (12:03)
[2018-08-21] MEDS: ANASTROZOLE 1 MG TAB PO SCH (14:49)
--- NOTE | 2018-08-21 15:55 | P.PN ---
Subjective Date of Service: 08/21/18 Chief Complaint: Altered mentation, elevated blood sugars Subjective: No C/O voiced, Tolerating diet, Improving Patient seen and examined at bedside. No family at bedside. Chart reviewed and case discussed with nursing staff. Patient now alert oriented x4, in no acute distress. No concerns complaints this morning. Tolerating diet, working well with physical therapy Review of Systems 10-point ROS is otherwise unremarkable Physical Examination - Vital Signs Temperature: 97.5 F Blood Pressure: 124/47 Pulse: 80 Respirations: 20 Pulse Ox (%): 94 - Physical Exam General: Alert, In no apparent distress, Oriented x3 HEENT: Atraumatic, PERRLA, EOMI Neck: Supple, JVD not distended Respiratory: Clear to auscultation bilaterally, Normal air movement Cardiovascular: Regular rate/rhythm, Normal S1 S2 Gastrointestinal: Normal bowel sounds, No tenderness Musculoskeletal: No tenderness Integumentary: No rashes Neurological: Normal speech, Normal tone, Normal affect Lymphatics: No axilla or inguinal lymphadenopathy Assessment And Plan - Plan A 77-year-old female with: Hyperosmolar hyperglycemic state secondary to her uncontrolled diabetes. - blood sugars now improved off of IV insulin. A1c elevated at 8.4 - continued Lantus 40 units subcutaneous. Continue to monitor blood sugars. - Diabetic diet. Acute metabolic encephalopathy secondary to above, resolved. - the patient is now alert oriented x4. Atrial fibrillation, chronic, on anticoagulation. INR now normal - currently in normal sinus rhythm. Continue anticoagulation and rate control medications. Acute on chronic kidney injury stage 3. - creatinine continues to be elevated. May need to get nephrology consulted if no improvement noted in her creatinine levels. - Avoid NSAIDs. Continue to monitor levels. Hypermagnesemia. Continue to monitor. Hypoxemia. Improving - continue supplemental oxygen. Pulmonary edema. Improving Normocytic normochromic anemia, likely anemia of chronic disease. Essential hypertension, stable. - We will continue home medications as appropriate. Diabetes mellitus type 2, long-term use of insulin with hyperglycemic hyperosmolar syndrome. - management as above. We will monitor blood glucose levels. Non-intractable nausea and vomiting. Obesity. Deep venous thrombosis prophylaxis. The patient is already on anticoagulation. Plan: Transfer to the floor if blood sugars remain stable by afternoon. Possible discharge home tomorrow sugars remain stable. Overall, the patient has a poor prognosis due to her recurrent admissions, noncompliance.
[2018-08-21] MEDS: WARFARIN SODIUM 1 MG TAB PO SCH (16:27)
[2018-08-21] MEDS: ATORVASTATIN 40 MG TAB PO SCH (20:11)
[2018-08-22 06:07] LABS: Protime INR 1.11
[2018-08-22] MEDS: CITALOPRAM 10 MG TABLET PO SCH (08:23)
[2018-08-22] MEDS: PANTOPRAZOLE 40MG TABLET PO SCH (08:23)
[2018-08-22] MEDS: FERROUS SULFATE 325 MG TAB PO SCH (08:23)
[2018-08-22] MEDS: ASPIRIN EC 81 MG TAB PO SCH (08:23)
[2018-08-22] MEDS: FUROSEMIDE 40 MG TABLET PO SCH (08:23)
[2018-08-22] MEDS: PREGABALIN 75 MG CAP PO SCH ×2 (08:23→21:28)
[2018-08-22] MEDS: INSULIN -REGULAR HUMAN 50 UNIT/0.5 ML ML SQ SCH ×4 (08:24→21:00)
[2018-08-22] MEDS: INSULIN GLARGINE 100 UNITS/ML SQ SCH (08:24)
[2018-08-22] MEDS: Insulin Degludec [Tresiba Flextouch U-200] SQ SCH ×2 (08:29→09:00)
[2018-08-22] MEDS: ANASTROZOLE 1 MG TAB PO SCH (09:00)
[2018-08-22] MEDS ORDERED: NA CHLORIDE 0.9% 500 ML IV ONE (10:25)
--- NOTE | 2018-08-22 15:06 | P.PN ---
Subjective Date of Service: 08/22/18 Chief Complaint: Altered mentation, elevated blood sugars Patient seen and examined at bedside. No family at bedside. Chart reviewed and case discussed with nursing staff. Patient now alert oriented x4, in no acute distress. Complaining of dizziness, orthostatic positive Tolerating diet, working well with physical therapy Review of Systems 10-point ROS is otherwise unremarkable Physical Examination - Vital Signs Temperature: 98.5 F Blood Pressure: 169/69 Pulse: 78 Respirations: 16 Pulse Ox (%): 96 - Physical Exam General: Alert, In no apparent distress HEENT: Atraumatic, PERRLA, EOMI Neck: Supple, JVD not distended Respiratory: Clear to auscultation bilaterally, Normal air movement Cardiovascular: Regular rate/rhythm, Normal S1 S2 Gastrointestinal: Normal bowel sounds, No tenderness Musculoskeletal: No tenderness Integumentary: No rashes Neurological: Normal speech, Normal tone, Normal affect Lymphatics: No axilla or inguinal lymphadenopathy Assessment And Plan - Plan A 77-year-old female with: Hyperosmolar hyperglycemic state secondary to her uncontrolled diabetes. - blood sugars continue to be elevated on tresiba and lantus. It was noted that family brings in ICE drinks/food from outside. - continued Tresiba and Lantus 40 units subcutaneous. Continue to monitor blood sugars. - Diabetic diet. Acute metabolic encephalopathy secondary to above, resolved. - the patient is now alert oriented x4. Atrial fibrillation, chronic, on anticoagulation. INR now normal - currently in normal sinus rhythm. Continue anticoagulation and rate control medications. Acute on chronic kidney injury stage 3. - creatinine continues to be elevated. May need to get nephrology consulted if no improvement noted in her creatinine levels. - Avoid NSAIDs. Continue to monitor levels. Hypermagnesemia. Continue to monitor. Hypoxemia. Improving - continue supplemental oxygen. Pulmonary edema. Improving Normocytic normochromic anemia, likely anemia of chronic disease. Essential hypertension, stable. - We will continue home medications as appropriate. Diabetes mellitus type 2, long-term use of insulin with hyperglycemic hyperosmolar syndrome. - management as above. We will monitor blood glucose levels. Non-intractable nausea and vomiting. Obesity. Deep venous thrombosis prophylaxis. The patient is already on anticoagulation. Plan: Possible discharge home tomorrow sugars remain stable. Overall, the patient has a poor prognosis due to her recurrent admissions, noncompliance.
[2018-08-22] MEDS: WARFARIN SODIUM 2 MG TAB PO SCH (16:40)
[2018-08-22] MEDS: ATORVASTATIN 40 MG TAB PO SCH (21:27)
[2018-08-23] MEDS: FERROUS SULFATE 325 MG TAB PO SCH (08:26)
[2018-08-23] MEDS: ASPIRIN EC 81 MG TAB PO SCH (08:26)
[2018-08-23] MEDS: PANTOPRAZOLE 40MG TABLET PO SCH (08:26)
[2018-08-23] MEDS: INSULIN -REGULAR HUMAN 50 UNIT/0.5 ML ML SQ SCH ×4 (08:26→22:15)
[2018-08-23] MEDS: PREGABALIN 75 MG CAP PO SCH ×2 (08:26→22:14)
[2018-08-23] MEDS: FUROSEMIDE 40 MG TABLET PO SCH (08:26)
[2018-08-23] MEDS: ANASTROZOLE 1 MG TAB PO SCH (08:27)
[2018-08-23] MEDS: INSULIN GLARGINE 100 UNITS/ML SQ SCH (08:27)
[2018-08-23] MEDS: CITALOPRAM 10 MG TABLET PO SCH (08:27)
[2018-08-23] MEDS: Insulin Degludec [Tresiba Flextouch U-200] SQ SCH ×2 (08:28→12:06)
--- NOTE | 2018-08-23 13:47 | P.PN ---
Subjective Date of Service: 08/23/18 Chief Complaint: Altered mentation, elevated blood sugars Subjective: Improving Patient seen and examined at bedside. No family at bedside. Chart reviewed and case discussed with nursing staff. Patient now alert oriented x4, in no acute distress. Tolerating diet, working well with physical therapy Review of Systems 10-point ROS is otherwise unremarkable Physical Examination - Vital Signs Temperature: 97.2 F Blood Pressure: 153/69 Pulse: 71 Respirations: 18 Pulse Ox (%): 95 - Physical Exam General: Alert, In no apparent distress, Oriented x3 HEENT: Atraumatic, PERRLA, EOMI Neck: Supple, JVD not distended Respiratory: Clear to auscultation bilaterally, Normal air movement Cardiovascular: Regular rate/rhythm, Normal S1 S2 Gastrointestinal: Normal bowel sounds, No tenderness Musculoskeletal: No tenderness Integumentary: No rashes Neurological: Normal speech, Normal tone, Normal affect Lymphatics: No axilla or inguinal lymphadenopathy Assessment And Plan - Plan A 77-year-old female with: Hyperosmolar hyperglycemic state secondary to her uncontrolled diabetes. - blood sugars stable. It was noted that family brings in ICE drinks/food from outside. - continue Tresiba and Lantus 40 units subcutaneous. Continue to monitor blood sugars. - Diabetic diet. Acute metabolic encephalopathy secondary to above, resolved. - the patient is now alert oriented x4. Atrial fibrillation, chronic, on anticoagulation. INR now normal - currently in normal sinus rhythm. Continue anticoagulation and rate control medications. Acute on chronic kidney injury stage 3. - creatinine continues to be elevated. May need to get nephrology consulted if no improvement noted in her creatinine levels. - Avoid NSAIDs. Continue to monitor levels. Hypermagnesemia. Continue to monitor. Hypoxemia. Improving - continue supplemental oxygen. Pulmonary edema. Improving Normocytic normochromic anemia, likely anemia of chronic disease. Essential hypertension, stable. - We will continue home medications as appropriate. Diabetes mellitus type 2, long-term use of insulin with hyperglycemic hyperosmolar syndrome. - management as above. We will monitor blood glucose levels. Non-intractable nausea and vomiting. Resolved Obesity. Deep venous thrombosis prophylaxis. The patient is already on anticoagulation. Plan: Possible discharge home tomorrow sugars remain stable. [employer] company was updated by [employer] and they will be providing continued education regarding DM and compliance. Overall, the patient has a poor prognosis due to her recurrent admissions, noncompliance.
[2018-08-23] MEDS: WARFARIN SODIUM 1 MG TAB PO SCH (16:45)
[2018-08-23] MEDS: ATORVASTATIN 40 MG TAB PO SCH (22:14)
[2018-08-24] MEDS: INSULIN -REGULAR HUMAN 50 UNIT/0.5 ML ML SQ SCH ×2 (08:47→11:50)
[2018-08-24] MEDS: INSULIN GLARGINE 100 UNITS/ML SQ SCH (08:48)
[2018-08-24] MEDS: CITALOPRAM 10 MG TABLET PO SCH (08:49)
[2018-08-24] MEDS: FERROUS SULFATE 325 MG TAB PO SCH (08:49)
[2018-08-24] MEDS: ASPIRIN EC 81 MG TAB PO SCH (08:49)
[2018-08-24] MEDS: FUROSEMIDE 40 MG TABLET PO SCH (08:50)
[2018-08-24] MEDS: PANTOPRAZOLE 40MG TABLET PO SCH (08:50)
[2018-08-24] MEDS: PREGABALIN 75 MG CAP PO SCH (08:51)
[2018-08-24] MEDS: ANASTROZOLE 1 MG TAB PO SCH (08:51)
[2018-08-24] MEDS: Insulin Degludec [Tresiba Flextouch U-200] SQ SCH ×2 (09:00→12:22)
[2018-08-24 09:20] VITALS: O2SAT 96
[2018-08-24 12:08] VITALS: BP 133/63; TEMP 97.1
--- NOTE | 2018-08-24 18:17 | P.DS ---
Admission Date: 08/19/18 Discharge Date: 08/24/18 Disposition: ROUTINE DISCHARGE Discharge Condition: FAIR Reason for Admission: Altered mentation, elevated blood sugars Brief History of Present Illness: The patient is a 77-year-old female, who has had multiple admissions to the hospital recently due to uncontrolled blood sugars, last discharged on 2018, who has a past medical history of atrial fibrillation, on chronic anticoagulation; diabetes mellitus type 2, insulin requiring with poor glycemic control; hypertension; GERD; chronic kidney disease; peripheral vascular disease ; gout; depression; coronary artery disease; hyperlipidemia; comes in with nausea, vomiting, generalized weakness as well as diarrhea for the past day. The patient's symptoms are constant, moderate, progressively worsening. She states that she is taking her medications as she is supposed to including her insulin; however, she has had difficulty with her medications in the past. Her family members are apparently her caregivers. Patient was brought into the ER due to worsening condition. In the ER, her workup revealed a glucose of 795. Her serum osmolality was high. She did not have an anion gap. ABG did not show any acidosis. The patient was thought to be in hyperosmolar hyperglycemic state. Her acetone level was small. The patient was then started on IV insulin , given 1 L of normal saline bolus in the ER, and referred for admission. When seen in the ER, she was awake, alert, oriented x3 and somewhat confused and lethargic. Hospital Course: She was admitted to the ICU for hyperosmolar hyperglycemic state secondary to her uncontrolled diabetes. She was started on IV insulin, once blood sugars improved she was switched over to subcutaneous insulin. She was started on diabetic diet. She was started on Lantus 40 units subcutaneous along with her Tresiba 40 units. Her blood sugars continues remain high, likely secondary to family bringing her food and drinks from outside. She was then transferred out of the ICU once labs and hemodynamically stable. Her mentation resolved and returned back to baseline. She otherwise remained stable throughout the stay. Social work was consulted for [employer] home health company in order to provide more diabetes education and medication education to patient. Patient was counseled on diet, medication compliance. Overall though the patient does have a poor prognosis due to her noncompliance even after multiple teachings and counseling sessions. Patient was then discharged home a safe and stable manner. [facility] will be following up with her, educating, Re educating and re-teaching rate in regards to diabetes and medication compliance. Her insulin (Tresiba) was increased to 40 units in the morning, and 20 units in the evening. Vital Signs/Physical Exam: Temp Pulse Resp BP Pulse Ox 97.1 F 74 16 133/63 95 08/24/18 12:00 08/24/18 12:00 08/24/18 12:00 08/24/18 12:00 08/24/18 12:00 General: Alert, In no apparent distress, Oriented x3 HEENT: Atraumatic, PERRLA, EOMI Neck: Supple, JVD not distended Respiratory: Clear to auscultation bilaterally, Normal air movement Cardiovascular: Regular rate/rhythm, Normal S1 S2 Gastrointestinal: Normal bowel sounds, No tenderness Musculoskeletal: No tenderness Integumentary: No rashes Neurological: Normal speech, Normal tone, Normal affect Lymphatics: No axilla or inguinal lymphadenopathy Laboratory Data at Discharge: WBC 9.4 K/uL (4.3-10.9) 08/20/18 04:40 Hgb 10.7 g/dL (12.0-15.0) L 08/20/18 04:40 Hct 32.6 % (36.0-45.0) L 08/20/18 04:40 Plt Count 277 K/uL (152-406) D 08/20/18 04:40 PT 13.1 SECONDS (9.5-12.5) H 08/22/18 05:25 INR 1.11 08/22/18 05:25 Sodium 138 mmol/L (136-145) 08/22/18 05:25 Potassium 4.0 mmol/L (3.5-5.1) 08/22/18 05:25 BUN 69 mg/dL (7-18) H 08/22/18 05:25 Creatinine 3.09 mg/dL (0.55-1.3) H 08/22/18 05:25 Glucose 292 mg/dL (74-106) H 08/22/18 05:25 Phosphorus 4.4 mg/dL (2.5-4.9) 08/20/18 04:40 Magnesium 2.7 mg/dL (1.8-2.4) H 08/20/18 04:40 Total Bilirubin 0.4 mg/dL (0.2-1.0) 08/20/18 04:40 AST 9 U/L (15-37) L 08/20/18 04:40 ALT 12 U/L (12-78) 08/20/18 04:40 Alkaline Phosphatase 105 U/L (45-117) 08/20/18 04:40 Triglycerides 153 mg/dL (<150) H 08/20/18 04:40 Cholesterol 90 mg/dL (<200) 08/20/18 04:40 HDL Cholesterol 28 mg/dL (40-60) L 08/20/18 04:40 Cholesterol/HDL Ratio 3.21 08/20/18 04:40 Home Medications: RX: Anastrozole [Arimidex*] 1 mg PO DAILY 07/16/18 RX: Aspirin [Aspir-Low] 81 mg PO DAILY 07/16/18 RX: Atorvastatin Calcium 40 mg PO BEDTIME 07/16/18 RX: Cholecalciferol (Vitamin D3) [Vitamin D3] 1,000 unit PO DAILY 07/16/18 RX: Citalopram [Celexa*] 20 mg PO DAILY 07/16/18 RX: Ferrous Sulfate 325 mg PO DAILY 07/16/18 RX: Furosemide 40 mg PO DAILY 07/16/18 RX: Magnesium Oxide [Mag 0X*] 400 mg PO BID 07/16/18 RX: Pantoprazole [Protonix Tab*] 40 mg PO DAILY 07/16/18 RX: Pregabalin [Lyrica*] 75 mg PO BID 07/16/18 RX: Tramadol HCl [Ultram] 50 mg PO Q6HP PRN 07/16/18 RX: Warfarin Sodium 1 mg PO SEECOM 07/16/18 RX: Insulin -Regular Human [Novolin -R*] See Protocol SQ ACHS ml 07/23/18 Insulin Degludec [Tresiba Flextouch U-200] 40 unit SQ ACN #1 insuln.pen New Medications: Insulin Degludec [Tresiba Flextouch U-200] 40 unit SQ ACN #1 insuln.pen Patient Discharge Instructions: Please follow up with your primary care physicain in 2-3 days. Please return to the ER with worsening symptoms. Your home health company will be helping oyu with your diabetes medications. Diet: ADA Activity: Ad laz Followup: Moshe Hudson MD [ACTIVE - CAN ADMIT] - 2-3 Days (Call to schedule an appointment)
== END 2018-08-24 13:30 | disposition home health service (06) | DRG 637 ==
LOC: ER 11:02 → ERHOLD 12:15 → 3RD-ICU 16:01 → 4TH 08-21 21:15
PROVIDERS: ADMIT Family Medicine; ATTEND Family Medicine
DX: E11.00 Type 2 diabetes mellitus with hyperosmolarity without nonketotic hyperglycemic-hyperosmolar coma (NKHHC) (principal); G93.41 Metabolic encephalopathy; N17.9 Acute kidney failure, unspecified; J81.1 Chronic pulmonary edema; I48.2 Chronic atrial fibrillation; I12.9 Hypertensive chronic kidney disease with stage 1 through stage 4 chronic kidney disease, or unspecified chronic kidney disease; E11.22 Type 2 diabetes mellitus with diabetic chronic kidney disease; N18.3 Chronic kidney disease, stage 3 (moderate); E83.41 Hypermagnesemia; R09.02 Hypoxemia; D63.8 Anemia in other chronic diseases classified elsewhere; E66.9 Obesity, unspecified; K21.9 Gastro-esophageal reflux disease without esophagitis; E11.51 Type 2 diabetes mellitus with diabetic peripheral angiopathy without gangrene; E11.40 Type 2 diabetes mellitus with diabetic neuropathy, unspecified; M10.9 Gout, unspecified; F41.8 Other specified anxiety disorders; I25.10 Atherosclerotic heart disease of native coronary artery without angina pectoris; E78.5 Hyperlipidemia, unspecified; I25.2 Old myocardial infarction; Z68.33 Body mass index [BMI] 33.0-33.9, adult; Z79.01 Long term (current) use of anticoagulants
CPT/HCPCS: 36415; 51702; 71045; 80048; 80053; 80061; 80076; 81003; 81015; 82010; 82805; 82947; 82962; 83036; 83735; 83880; 83930; 84100; 84484; 85025; 85610; 87086; 87088; 93005; 96361; 96374; 97110; 97116; 97163; 97530; 99285; J7030